=== PATIENT | male | born 1985 | race Caucasian/White ===

== ENCOUNTER 2021-02-18 16:55 | Emergency (ER) | payer MEDICAID, SELFPAY ==
[2021-02-18 17:05] VITALS: BP 119/77; PULSE 77; O2SAT 96
--- NOTE | 2021-02-18 17:07 | ED_ITS ---
HPI - Seizure General Chief Complaint: General Medical Stated Complaint: ?SEIZURE Time Seen by Provider: 02/18/21 17:07 Source: patient and EMS Mode of arrival: EMS Limitations: no limitations History of Present Illness HPI Narrative: 35 y/o male with history of a TBI and seizures who presents to the ED from home via EMS with feeling like he was going to have a seizure. He reports for the last several days he has been vomiting after he takes his Trileptal so his body is not absorbing it. He is worried he is going to have a seizure. He feels tired and has a posterior headache. He reports he had a seizure a few days ago which consists of him nodding out and urinary incontinence. He sees a Neurologist in [place] where he lives. He is here visiting his fiance. He denies any drug use, ETOH use, fever, chills, abdominal pain. MD complaint: feels seizure coming on Onset (ago): day(s) Trauma: No Seizure History: Yes Place: Home Possible Precipitating Event: head injury Associated symptoms: malaise Treatments prior to arrival: none Related Data Previous Rx's Medication Instructions Recorded metoclopramide HCl [Reglan] 10 mg PO Q6H PRN #7 tab 02/18/21 Allergies Allergy/AdvReac Type Severity Reaction Status Date / Time amoxicillin Allergy Vomiting Verified 02/18/21 17:19 lamotrigine [From Lamictal] Allergy Hives Verified 02/18/21 17:19 levetiracetam [From Keppra] Allergy Hives Verified 02/18/21 17:19 Review of Systems Review of Systems: Constitutional: No Fever, No Chills ENT/Mouth: No sore throat, No Rhinorrhea, No Swallowing Difficulty Eyes: No Eye Pain, No Swelling, No Redness Cardiovascular: No Chest Pain, No SOB, No Orthopnea, No Edema Respiratory: No Cough, No Sputum, No Wheezing, No dyspnea Gastrointestinal: No Nausea, No Vomiting, No Diarrhea, No abdominal Pain, No Hematochezia, No Melena Genitourinary: No Dysuria, No Urinary Frequency, No Hematuria Musculoskeletal: No joint pain, No Myalgias Skin: No Skin Lesions, No rash Neuro: No Weakness, No Numbness, No Dizziness, No Headache Psych: No Anxiety/Panic, No Depression Heme/Lymph: No Bruising, No Lymphadenopathy Endocrine: No Polyuria, No Polydipsia [facility] Past Medical History Medical History (Updated 02/18/21 @ 20:25 by EUSEBIO Eduardo) Bipolar 1 disorder PTSD (post-traumatic stress disorder) Seizure TBI (traumatic brain injury) Surgical History (Updated 02/18/21 @ 17:16 by Patricia Guerra) Hx of hernia repair Social History Social History Alcohol intake: former Patient Tobacco Use Status: Former Tobacco user Use of substances other than those prescribed or required for medical reasons: No Advance Directives: No Advance Directives Information Provided: No Physical Exam Vital Signs: Vital Signs: Last Vital Signs Temp 98.2 F 02/18/21 17:14 Pulse 80 02/18/21 18:08 Resp 18 02/18/21 18:08 BP 131/77 02/18/21 18:08 Pulse Ox 98 02/18/21 18:08 Body Mass Index 28.7 Appearance: Alert. Oriented X3. No acute distress. Eyes: Pupils equal, round and reactive to light. ENT: Pharynx normal. Neck: Normal inspection. Neck supple. CVS: Normal heart rate and rhythm. Pulses normal. Respiratory: No respiratory distress. Breath sounds normal. Abdomen: Soft and nontender. +BS x4 Skin: Skin warm and dry. Normal skin color. Normal skin turgor. No rashes. Extremities: No lower extremity edema. Neuro: Oriented X 3. No motor deficit. No sensory deficit. Hyperverbal Course Course Course Narrative: 35 y/o male with history of TBI and seizure disorder presenting with feeling like he is going to have a seizure. He does not have tonic-clonic seizures. He is fully neurologically intact on arrival. Will monitor closely for seizure activity. Will pre-mediate with Zofran and give his scheduled dose of Trileptal and montior. Reevaluation(s) Reevaluation #1: Labs and Utox unremarkable. Tolerated his AED well. No vom iting. He is stable for discharge home with plans to f/u as an outpatient with his neurologist. MDM - Seizure Lab Data Result diagrams: 02/18/21 18:06 02/18/21 18:06 Labs: Lab Results 02/18/21 02/18/21 02/18/21 Range/Units 18:06 18:06 18:06 WBC 6.3 (4.8-10.8) X10*3/uL RBC 4.77 (4.60-5.80) X10*6/uL Hgb 13.8 L (14.0-18.0) g/dl Hct 41.1 L (42-52) % MCV 86.2 (80-98) fL MCH 28.9 (27.0-33.0) pg MCHC 33.6 (31.0-36.0) g/dl RDW 13.4 (11.0-16.0) % Plt Count 285 (160-400) X10*3/uL MPV 9.7 (9.4-12.4) fL Immature Gran % (Auto) 0.5 H (0.0-0.4) % Neut % (Auto) 61.6 (45-73) % Lymph % (Auto) 24.4 (20-40) % Schley % (Auto) 10.1 (2-11) % Eos % (Auto) 2.6 (0-4) % Baso % (Auto) 0.8 (0-2) % Lymph # (Auto) 1.5 (1.2-4.9) X10*3/uL Schley # (Auto) 0.6 (0.1-1.2) X10*3/uL Eos # (Auto) 0.2 (0.0-0.4) X10*3/uL Baso # (Auto) 0.1 (0.0-0.2) X10*3/uL Abs Immat Gran (auto) 0.03 (0.00-0.03) X10*3/uL Absolute Neuts (auto) 3.9 (2.0-8.3) X10*3/uL Absolute Nucleated RBC 0.000 (0.0-0.012) X10*3/uL Nucleated RBC % (auto) 0.0 (0.0-0.2) /100WBC Sodium 142 (135-145) mmol/L Potassium 4.0 (3.3-5.1) mmol/L Chloride 108 (96-108) mmol/L Carbon Dioxide 26 (22-29) mmol/L Anion Gap 12 (12-20) BUN 19 H (9-16) mg/dL Creatinine 0.80 (0.5-1.4) mg/dL Estim Creat Clear Calc 116.9 Estimated GFR > 60 Random Glucose 89 (60-115) mg/dL Calcium 8.9 (8.4-10.2) mg/dL Magnesium 2.3 (1.6-2.6) mg/dL Total Bilirubin 0.8 (0.0-1.0) mg/dL Direct Bilirubin 0.3 (0.0-0.5) mg/dL AST 57 H (5-37) U/L ALT 70 H (0-40) U/L Alkaline Phosphatase 103 (39-117) U/L Total Protein 6.8 (6.5-8.0) g/dL Albumin 4.2 (3.5-5.0) g/dL Lipase 26 (8-78) U/L Urine Color Urine Appearance Urine pH (5.0-8.0) Ur Specific [place] (1.005-1.025) Urine Protein (NEG-TRACE) MG/DL Urine Glucose (UA) (NEG) MG/DL Urine Ketones (NEG) MG/DL Urine Blood (NEG) Urine Nitrite (NEG) Ur Leukocyte Esterase (NEG) Urine Opiates Screen (Not Detect) Ur Barbiturates Screen (Not Detect) Ur Phencyclidine Scrn (Not Detect) Ur Amphetamines Screen (Not Detect) U Benzodiazepines Scrn (Not Detect) Urine Cocaine Screen (Not Detect) U Marijuana (THC) Screen (Not Detect) Ethyl Alcohol < 10 mg/dL 02/18/21 02/18/21 Range/Units 18:06 18:06 WBC (4.8-10.8) X10*3/uL RBC (4.60-5.80) X10*6/uL Hgb (14.0-18.0) g/dl Hct (42-52) % MCV (80-98) fL MCH (27.0-33.0) pg MCHC (31.0-36.0) g/dl RDW (11.0-16.0) % Plt Count (160-400) X10*3/uL MPV (9.4-12.4) fL Immature Gran % (Auto) (0.0-0.4) % Neut % (Auto) (45-73) % Lymph % (Auto) (20-40) % Schley % (Auto) (2-11) % Eos % (Auto) (0-4) % Baso % (Auto) (0-2) % Lymph # (Auto) (1.2-4.9) X10*3/uL Schley # (Auto) (0.1-1.2) X10*3/uL Eos # (Auto) (0.0-0.4) X10*3/uL Baso # (Auto) (0.0-0.2) X10*3/uL Abs Immat Gran (auto) (0.00-0.03) X10*3/uL Absolute Neuts (auto) (2.0-8.3) X10*3/uL Absolute Nucleated RBC (0.0-0.012) X10*3/uL Nucleated RBC % (auto) (0.0-0.2) /100WBC Sodium (135-145) mmol/L Potassium (3.3-5.1) mmol/L Chloride (96-108) mmol/L Carbon Dioxide (22-29) mmol/L Anion Gap (12-20) BUN (9-16) mg/dL Creatinine (0.5-1.4) mg/dL Estim Creat Clear Calc Estimated GFR Random Glucose (60-115) mg/dL Calcium (8.4-10.2) mg/dL Magnesium (1.6-2.6) mg/dL Total Bilirubin (0.0-1.0) mg/dL Direct Bilirubin (0.0-0.5) mg/dL AST (5-37) U/L ALT (0-40) U/L Alkaline Phosphatase (39-117) U/L Total Protein (6.5-8.0) g/dL Albumin (3.5-5.0) g/dL Lipase (8-78) U/L Urine Color YELLOW Urine Appearance CLEAR Urine pH 6.5 (5.0-8.0) Ur Specific [place] 1.020 (1.005-1.025) Urine Protein TRACE (NEG-TRACE) MG/DL Urine Glucose (UA) NEG (NEG) MG/DL Urine Ketones NEG (NEG) MG/DL Urine Blood NEG (NEG) Urine Nitrite NEG (NEG) Ur Leukocyte Esterase NEG (NEG) Urine Opiates Screen Not Detected (Not Detect) Ur Barbiturates Screen Not Detected (Not Detect) Ur Phencyclidine Scrn Not Detected (Not Detect) Ur Amphetamines Screen Not Detected (Not Detect) U Benzodiazepines Scrn Not Detected (Not Detect) Urine Cocaine Screen Not Detected (Not Detect) U Marijuana (THC) Screen Not Detected (Not Detect) Ethyl Alcohol mg/dL Discharge Plan Discharge Clinical Impression: TBI (traumatic brain injury) Qualifiers: Encounter type: initial encounter Loss of consciousness presence/duration: without LOC Qualified Code(s): S06.9X0A - Unspecified intracranial injury without loss of consciousness, initial encounter Patient Disposition: Home, Self-Care Instructions: Nonepileptic Seizures (ED) Additional Instructions: Your lab workup was normal. Recommend following up with Neurology. Take the prescribed nausea medication before your take your seizure medication. Prescription was sent to [facility] on [facility] in [place] If you develop new or worsening symptoms call 911 or come back to the ER for further evaluation. Prescriptions: New metoclopramide HCl [Reglan] 10 mg tablet 10 mg PO Q6H PRN (Reason: nausea and vomiting) Qty: 7 RF: 0
[2021-02-18 17:14] VITALS: BP 131/90; PULSE 84; RESP 18; TEMP 36.8; O2SAT 95; BMI 28.7
[2021-02-18] MEDS: OXcarbazepine 300 MG TABLET 600 MG PO (17:53)
[2021-02-18] MEDS: ondansetron HCL 4 MG/2 ML VIAL IVPUSH (17:56)
[2021-02-18] MEDS: 0.9 % Sodium Chloride 1,000 ML 999 ML IVCONT (17:57)
[2021-02-18 18:08] VITALS: BP 131/77; PULSE 80; RESP 18; O2SAT 98
[2021-02-18 18:20] LABS: MANUAL DIFF FLAG NO
[2021-02-18 18:23] LABS: Basophils Absolute Auto 0.1 X10*3/uL (0.0-0.2); Basophils Percent Auto 0.8 % (0-2); Eosinophils Absolute Auto 0.2 X10*3/uL (0.0-0.4); Eosinophils Percent Auto 2.6 % (0-4); Hematocrit 41.1 % (42-52); Hemoglobin 13.8 g/dl (14.0-18.0); Imm Gran Abs Auto 0.03 X10*3/uL (0.00-0.03); Imm Gran Pct Auto 0.5 % (0.0-0.4); Lymphocytes Absolute Auto 1.5 X10*3/uL (1.2-4.9); Lymphocytes Percent Auto 24.4 % (20-40); Mean Corpuscular HGB Conc 33.6 g/dl (31.0-36.0); Mean Corpuscular Hemoglobin 28.9 pg (27.0-33.0); Mean Corpuscular Volume 86.2 fL (80-98); Mean Platelet Volume 9.7 fL (9.4-12.4); Monocytes Absolute Auto 0.6 X10*3/uL (0.1-1.2); Monocytes Percent Auto 10.1 % (2-11); Neutrophils Absolute Auto 3.9 X10*3/uL (2.0-8.3); Neutrophils Percent Auto 61.6 % (45-73); Platelet Count 285 X10*3/uL (160-400); Red Blood Count 4.77 X10*6/uL (4.60-5.80); Red Cell Distribution Width 13.4 % (11.0-16.0); White Blood Count 6.3 X10*3/uL (4.8-10.8)
[2021-02-18 18:25] LABS: Glucose Urine UA NEG (NEG); Leukocyte Esterase Urine NEG (NEG); Nitrite Urine NEG (NEG); PH 6.5 (5.0-8.0); Urine Blood NEG (NEG); Urine Ketones NEG (NEG); Urine Protein TRACE MG/DL (NEG-TRACE)
[2021-02-18 18:28] LABS: Appearance Urine CLEAR; Color Urine YELLOW
[2021-02-18 18:51] LABS: Ethanol < 10 mg/dL
[2021-02-18 18:53] LABS: Alanine Aminotransferase 70 U/L (0-40); Albumin Level 4.2 g/dL (3.5-5.0); Alkaline Phosphatase 103 U/L (39-117); Anion Gap 12 (12-20); Aspartate Amino Transferase 57 U/L (5-37); Bilirubin Direct 0.3 mg/dL (0.0-0.5); Bilirubin Total 0.8 mg/dL (0.0-1.0); Blood Urea Nitrogen 19 mg/dL (9-16); Calcium 8.9 mg/dL (8.4-10.2); Carbon Dioxide 26 mmol/L (22-29); Chloride 108 mmol/L (96-108); Creatinine Clr Calc Pharmacy 116.9; Estimated Glomerular Filt Rate > 60; Glucose Random 89 mg/dL (60-115); Lipase 26 U/L (8-78); Magnesium 2.3 mg/dL (1.6-2.6); Sodium 142 mmol/L (135-145); Total Protein 6.8 g/dL (6.5-8.0)
[2021-02-18 18:54] LABS: Amphetamine Screen Urine Not Detected (Not Detect); Barbiturates, Urine Not Detected (Not Detect); Benzodiazepines Screen Urine Not Detected (Not Detect); Cannabinoid Screen Urine Not Detected (Not Detect); Cocaine Screen Urine Not Detected (Not Detect); Opiate Screen Urine Not Detected (Not Detect); Phencyclidine Screen Urine Not Detected (Not Detect)
[2021-02-18 20:22] VITALS: BP 116/83; PULSE 74; RESP 16; O2SAT 99
== END 2021-02-18 21:01 | disposition home or self-care (01) ==
PROVIDERS: Physician Assistant; Emergency Provider Internal Medicine; PCP Family Medicine
DX: S06.9X0A Unspecified intracranial injury without loss of consciousness, initial encounter (principal); R11.10 Vomiting, unspecified; X58.XXXA Exposure to other specified factors, initial encounter; Y93.9 Activity, unspecified; Y92.9 Unspecified place or not applicable; Y99.9 Unspecified external cause status; Z79.899 Other long term (current) drug therapy; Z87.891 Personal history of nicotine dependence
CPT/HCPCS: 36415; 80048; 80076; 80307; 81003; 82077; 83690; 83735; 85025; 96361; 96365; 96374; 96375; 99284; J2405

== ENCOUNTER 2021-02-18 23:18 | Emergency (ER) | payer OTHER, SELFPAY ==
[2021-02-18 23:31] VITALS: BP 115/88; PULSE 70; RESP 18; TEMP 36.7; O2SAT 98; BMI 28.7
--- NOTE | 2021-02-18 23:56 | ED_ITS ---
HPI - General Adult General Chief complaint: General Medical Stated complaint: fall Time Seen by Provider: 02/19/21 00:04 Source: patient Mode of arrival: ambulatory Limitations: no limitations History of Present Illness HPI narrative: 35-year-old male with past medical history of TBI discharge from this emergency department less than 2 hours ago presents for evaluation because he hit his head while in the bathroom in the waiting room. He does not report loss of consciousness, does not report any injury, states that he would like a ride to his girlfriend's detox center 2 hours away. He has no other complaints at this time. Location: head Severity: mild Treatments prior to arrival: none Related Data Previous Rx's Medication Instructions Recorded metoclopramide HCl [Reglan] 10 mg PO Q6H PRN #7 tab 02/18/21 Allergies Allergy/AdvReac Type Severity Reaction Status Date / Time amoxicillin Allergy Vomiting Verified 02/18/21 17:19 lamotrigine [From Lamictal] Allergy Hives Verified 02/18/21 17:19 levetiracetam [From Keppra] Allergy Hives Verified 02/18/21 17:19 Review of Systems Review of Systems: Constitutional: No Fever, No Chills ENT/Mouth: No Ear Pain, No Hoarseness, No sore throat Eyes: No Eye Pain, No Swelling, No Redness, No Foreign Body Cardiovascular: No Chest Pain, No SOB Respiratory: No Cough, No Dyspnea Gastrointestinal: No Nausea, No Vomiting, No Diarrhea, No abdominal Pain Genitourinary: No Dysuria, No Hematuria Musculoskeletal: No joint pain, No Myalgias, No Joint Swelling Skin: No Skin lacerations, No rash Neuro: No Weakness, No Numbness, No Paresthesias, No Loss of Consciousness, No Dizziness, No Headache Psych: No Anxiety/Panic, No Depression Heme/Lymph: no easy bruising, no Lymphadenopathy Endocrine: No Polyuria, No Polydipsia Yes all other systems are reviewed and are negative [facility] Past Medical History Attestation statement: The following information was validated with the patient. Source: old records reviewed Medical History Bipolar 1 disorder PTSD (post-traumatic stress disorder) Seizure TBI (traumatic brain injury) Surgical History Hx of hernia repair Social History Social History Alcohol intake: former Patient Tobacco Use Status: Former Tobacco user Advance Directives: No Advance Directives Information Provided: No Physical Exam Vital Signs: Vital Signs: Last Vital Signs Temp 98.1 F 02/18/21 23:31 Pulse 70 02/18/21 23:31 Resp 18 02/18/21 23:31 BP 115/88 02/18/21 23:31 Pulse Ox 98 02/18/21 23:31 Body Mass Index 28.7 Appearance: Alert. Oriented X3. No acute distress. Eyes: Pupils equal, round and reactive to light. ENT: Pharynx normal. Neck: Normal inspection. Neck supple. CVS: Normal heart rate and rhythm. Pulses normal. Respiratory: No respiratory distress. Breath sounds normal. Abdomen: Soft and nontender. Skin: Skin warm and dry. Normal skin color. Normal skin turgor. Extremities: No lower extremity edema. Neuro: No motor deficit. No sensory deficit. Course Course Course Narrative: 35-year-old male discharged from this facility approximately less than 2 hours ago, has been waiting in the waiting room for a ride home. He presents for re-evaluation because hit his head while in the bathroom of the waiting room. He does not have any visible injuries, states that he did not lose consciousness and has no complaints of pain at this time. He is requesting an ambulance ride from this facility to his girlfriend's detox center. Patient was advised that we do not offer that kind of service here. Patient was discharged to the waiting room. Medical Decision Making Medical Records Medical records reviewed: Yes I reviewed the patient's medical records. Discharge Plan Discharge Clinical Impression: TBI (traumatic brain injury) Patient Disposition: Home, Self-Care Instructions: Fall Prevention (ED) Additional Instructions: You were evaluated for a reported head injury while waiting in the waiting room of the emergency department. Your exam was normal. Thank you for choosing this emergency department for evaluation. Please follow-up with primary care physician as needed. Return to the emergency department for any new, concerning, or worsening symptoms. Prescriptions: No Action metoclopramide HCl [Reglan] 10 mg tablet 10 mg PO Q6H PRN (Reason: nausea and vomiting) Qty: 7 RF: 0
--- NOTE | 2021-02-19 00:56 | PC.NURSE ---
PT STATES THAT HE BUMPED HEAD IN RESTROOM NO VISIBLE BRUISE NOTED PT A+OX3, AMBULATING WITH STEADY GAIT. PT IS UPSET BECAUSE HE WANT A RIDE HOME TO HIS GIRLFRIEND WHO IS IN REHAB. PT WAS TOLD WE CAN NOT PROVIDE HIM WITH TRANSPORT HOME. PT HAS A RIDE HOME BUT HIS RIDE JUST HAD A BABY AND HE HAS TO WAIT FOR HIM TO COME PICK HIM UP. PT REQUEST EMS TRANSPORT TO GIRLFRIEND REHAB FACILITY. PT WAS INSTRUCTED TO WAIT IN WAITING ROOM UNTIL HIS RIDE COME.
== END 2021-02-19 00:13 | disposition home or self-care (01) ==
PROVIDERS: Emergency Provider Internal Medicine
DX: S06.9X0A Unspecified intracranial injury without loss of consciousness, initial encounter (principal); G44.309 Post-traumatic headache, unspecified, not intractable; W18.30XA Fall on same level, unspecified, initial encounter; Y93.9 Activity, unspecified; Y92.239 Unspecified place in hospital as the place of occurrence of the external cause; Y99.9 Unspecified external cause status; Z79.899 Other long term (current) drug therapy
CPT/HCPCS: 99283

== ENCOUNTER 2021-02-19 21:06 | Emergency (ER) | payer OTHER, SELFPAY ==
[2021-02-19 21:17] VITALS: BP 122/85; PULSE 107; RESP 18; TEMP 36.8; O2SAT 98; BMI 28.7
--- NOTE | 2021-02-19 22:21 | ED_ITS ---
HPI - General Adult General Chief complaint: Seizure Stated complaint: Lightheaded/Dizzy, hx of seizures & TBI Source: patient Mode of arrival: ambulatory Limitations: no limitations History of Present Illness HPI narrative: 35-year-old male with past medical history of TBI and seizure disorder presents with complaint of dizziness, multiple seizures, and inability pay for hotel room. He presents with his suitcase. He states that he was at his girlfriend's house, noted that he had several seizures, took his medications as directed, and then threw up. He does not have any concerns at this time, denies chest pain or pressure, palpitations, shortness of breath, abdominal pain, abdominal distention, dysuria, hematuria, nausea, vomiting, diarrhea, constipation, lightheadedness, and incontinence of bowel or bladder. Onset (ago): unknown Location: head Severity: mild Relieving factors: none Associated symptoms: denies other symptoms Treatments prior to arrival: none Related Data Previous Rx's Medication Instructions Recorded metoclopramide HCl [Reglan] 10 mg PO Q6H PRN #7 tab 02/18/21 Allergies Allergy/AdvReac Type Severity Reaction Status Date / Time amoxicillin Allergy Vomiting Verified 02/18/21 17:19 lamotrigine [From Lamictal] Allergy Hives Verified 02/18/21 17:19 levetiracetam [From Keppra] Allergy Hives Verified 02/18/21 17:19 Review of Systems Review of Systems: Constitutional: No Fever, No Chills ENT/Mouth: No Ear Pain, No Hoarseness, No sore throat Eyes: No Eye Pain, No Swelling, No Redness, No Foreign Body Cardiovascular: No Chest Pain, No SOB Respiratory: No Cough, No Dyspnea Gastrointestinal: No Nausea, No Vomiting, No Diarrhea, No abdominal Pain Genitourinary: No Dysuria, No Hematuria Musculoskeletal: No joint pain, No Myalgias, No Joint Swelling Skin: No Skin lacerations, No rash Neuro: No Weakness, No Numbness, No Paresthesias, No Loss of Consciousness, No Dizziness, No Headache Psych: No Anxiety/Panic, No Depression Heme/Lymph: no easy bruising, no Lymphadenopathy Endocrine: No Polyuria, No Polydipsia Yes all other systems are reviewed and are negative [facility] Past Medical History Attestation statement: The following information was validated with the patient. Source: old records reviewed Medical History Bipolar 1 disorder PTSD (post-traumatic stress disorder) Seizure TBI (traumatic brain injury) Surgical History Hx of hernia repair Social History Social History Alcohol intake: former Patient Tobacco Use Status: Former Tobacco user Advance Directives: No Advance Directives Information Provided: Yes Physical Exam Vital Signs: Vital Signs: Last Vital Signs Temp 98.2 F 02/19/21 21:17 Pulse 107 H 02/19/21 21:17 Resp 18 02/19/21 21:17 BP 122/85 02/19/21 21:17 Pulse Ox 98 02/19/21 21:17 Body Mass Index 28.7 Appearance: Alert. Oriented X3. No acute distress. Eyes: Pupils equal, round and reactive to light. ENT: Pharynx normal. Neck: Normal inspection. Neck supple. CVS: Normal heart rate and rhythm. Pulses normal. Respiratory: No respiratory distress. Breath sounds normal. Abdomen: Soft and nontender. Skin: Skin warm and dry. Normal skin color. Normal skin turgor. Extremities: No lower extremity edema. Ambulatory, gait well balanced well co ordinated. Neuro: No motor deficit. No sensory deficit. Cranial nerves 2-12 intact. Course Course Course Narrative: 35-year-old male presents to this emergency department for multiple complaints. First complaint was he does not have enough money to check into a hotel room, cannot pay the 200 dollar retainer fee. Second complaint is report of multiple seizures witnessed by his girlfriend. Interesting to note that he presented to the emergency department last night multiple times, the las t encounter I had with him, he stated that his girlfriend was in a rehab facility approximately 2 hours away from this hospital, he requested an ambulance ride to her facility. This was less than 24 hours ago, patient stated he was at her house today when he had these multiple seizures. When I asked him more specific questions, he was not able to answer. He has no focal neural deficits, appears nontoxic, and has no other complaints at this time. Plan is to discharge home. Medical Decision Making Medical Records Medical records reviewed: Yes I reviewed the patient's medical records. Discharge Plan Discharge Clinical Impression: TBI (traumatic brain injury) Patient Disposition: Home, Self-Care Instructions: Normal Exam (ED) Additional Instructions: You presented to the emergency department with chief complaint of not having enough money to check into a hotel, and report of seizures. Please continue to take your seizure medication as directed. Thank you for choosing this emergency department for evaluation. Please follow-up with primary care physician as needed. Return to the emergency department for any new, concerning, or worsening symptoms. Prescriptions: No Action metoclopramide HCl [Reglan] 10 mg tablet 10 mg PO Q6H PRN (Reason: nausea and vomiting) Qty: 7 RF: 0
--- NOTE | 2021-02-19 22:27 | PC.NURSE ---
PT BROUGHT IN TO [facility] 22 FOR EVALUATION. PT BRINGING LUGGAGE WHEN QUESTIONED ABOUT IT PT STATED HE WAS SUPPOSED TO GO TO THE HOTEL [facility] BUT THEY WANTED A $200 WHITNEY DEPOSIT.
== END 2021-02-19 22:35 | disposition home or self-care (01) ==
PROVIDERS: Emergency Provider Student in an Organized Health Care Education/Training Program; PCP Family Medicine
DX: R56.9 Unspecified convulsions (principal); Z87.820 Personal history of traumatic brain injury
CPT/HCPCS: 99282; 99283

== ENCOUNTER 2021-02-21 20:31 | Emergency (ER) | payer OTHER, SELFPAY ==
[2021-02-21 20:56] VITALS: BP 135/90; PULSE 75; RESP 16; TEMP 36.8; BMI 29.2
--- NOTE | 2021-02-21 21:44 | ED_ITS ---
HPI - Seizure General Chief Complaint: Seizure Stated Complaint: WEAKNESS Time Seen by Provider: 02/21/21 21:35 Source: patient Mode of arrival: EMS Limitations: no limitations History of Present Illness HPI Narrative: Patient with history of seizures or long time with history of TBI been here 3 times in last 2 days for seizures and vomiting unable to hold down his seizure medication. Patient was discharged last night and now comes back as had another seizure which lasted a few minutes without any significant injury. When patient came here last 2 times had multiple social reasons to come including unable to pay for the rush ALMAGUER complaint: seizure Seizure History: Yes Related Data Previous Rx's Medication Instructions Recorded metoclopramide HCl [Reglan] 10 mg PO Q6H PRN #7 tab 02/18/21 Allergies Allergy/AdvReac Type Severity Reaction Status Date / Time amoxicillin Allergy Vomiting Verified 02/21/21 21:01 lamotrigine [From Lamictal] Allergy Hives Verified 02/21/21 21:01 levetiracetam [From Keppra] Allergy Hives Verified 02/21/21 21:01 Review of Systems Review of Systems: Yes all other systems are reviewed and are negative [facility] Past Medical History Medical History Bipolar 1 disorder PTSD (post-traumatic stress disorder) Seizure TBI (traumatic brain injury) Surgical History Hx of hernia repair Social History Social History Alcohol intake: former Patient Tobacco Use Status: Former Tobacco user Advance Directives: No Advance Directives Information Provided: No Physical Exam Vital Signs: Vital Signs: Last Vital Signs Temp 98.2 F 02/21/21 20:56 Pulse 75 02/21/21 20:56 Resp 16 02/21/21 20:56 BP 135/90 H 02/21/21 20:56 Body Mass Index 29.2 Appearance: Alert. Oriented X3. No acute distress. Anxious Eyes: PERRLA, No Nystagmus ENT: Pharynx normal. Oral Mucosa moist no tongue bite Neck: Normal inspection. Neck supple. CVS: Normal heart rate and rhythm. Pulses normal. Respiratory: No respiratory distress. Equal air entry bilateral, no wheezing/rales/rhonchi Abdomen: Soft and nontender. Bowel sounds are present, no mass palpable, no CVA tenderness Skin: Skin warm and dry. Normal skin color. Normal skin turgor. Extremities: No lower extremity edema. No calf tenderness Neuro: Oriented X 3. No motor deficit. No sensory deficit.No cerebellar signs , cranial nerves II-XII intact MDM - Seizure MDM Narrative Medical decision making narrative: Patient had sandwich in the ER took Trileptal without any vomiting will discharge patient home advised to continue his medications at home Discharge Plan Discharge Clinical Impression: Epileptic seizure Qualifiers: Epilepsy type: generalized idiopathic Intractability: not intractable Status epilepticus: without status epilepticus Qualified Code(s): G40.309 - Generalized idiopathic epilepsy and epileptic syndromes, not intractable, without status epilepticus Patient Disposition: Home, Self-Care Instructions: Epilepsy (ED) Additional Instructions: Take your seizure medication as prescribed and follow with neurologist Prescriptions: No Action metoclopramide HCl [Reglan] 10 mg tablet 10 mg PO Q6H PRN (Reason: nausea and vomiting) Qty: 7 RF: 0
[2021-02-21] MEDS: OXcarbazepine 300 MG TABLET 600 MG PO (21:51)
== END 2021-02-21 22:28 | disposition home or self-care (01) ==
PROVIDERS: Emergency Provider Internal Medicine
DX: G40.309 Generalized idiopathic epilepsy and epileptic syndromes, not intractable, without status epilepticus (principal); Z87.820 Personal history of traumatic brain injury
CPT/HCPCS: 99283; 99284

== ENCOUNTER 2021-02-23 21:09 | Emergency (ER) | payer OTHER, MEDICAID, SELFPAY ==
[2021-02-23 21:26] VITALS: BP 126/67; PULSE 89; RESP 20; TEMP 36.6; O2SAT 96; BMI 29.9
[2021-02-23 23:38] LABS: Glucose Urine UA NEG (NEG); Leukocyte Esterase Urine NEG (NEG); Nitrite Urine NEG (NEG); Urine Blood NEG (NEG); Urine Ketones NEG (NEG); Urine Protein NEG (NEG-TRACE)
[2021-02-23 23:39] LABS: Appearance Urine CLEAR; Color Urine YELLOW; UACC Culture Trigger NO
--- NOTE | 2021-02-24 00:22 | PC.NURSE ---
PT STATES AMOXICILLIN CAUSES NAUSEA AND VOMITING PT AND CRIMINAL LEGAL ASSISTANT AGREE PT WILL GET PENICILLIN INJECTION IT SHOULD NOT CAUSE VOMITING.
[2021-02-24] MEDS: Penicillin G Benzathine 2,400,000 UNIT/4 ML SYRINGE 2400000 UNIT IM (00:24)
[2021-02-24] MEDS: cefTRIAXone sodium 500 MG, Lidocaine HCl 1 % MPF 1 ML IM (00:24)
[2021-02-24] MEDS: Azithromycin 500 MG TABLET 1000 MG PO (00:25)
--- NOTE | 2021-02-24 00:56 | ED_ITS ---
HPI - Male Genitourinary General Chief complaint: Urogenital-Male Stated complaint: kidney stones Time Seen by Provider: 02/23/21 22:39 Source: patient and EMS Mode of arrival: EMS Limitations: no limitations History of Present Illness HPI Narrative: 35-year-old male presents via EMS for lesion to his penis. He does not report any other symptoms at this time. Complaint: possible STD exposure Onset (ago): week(s) Duration: constant Radiation: penis Severity: moderate Severity scale (1-10): 5 Quality: burning Exacerbating factors: palpation and sexual intercourse Context: known STD exposure Associated symptoms: Reports denies other symptoms Related Data Sexually active: Yes Previous Rx's Medication Instructions Recorded metoclopramide HCl [Reglan] 10 mg PO Q6H PRN #7 tab 02/18/21 valacyclovir 1,000 mg PO Q12H 10 Days #20 tab 02/24/21 Allergies Allergy/AdvReac Type Severity Reaction Status Date / Time amoxicillin Allergy Vomiting Verified 02/21/21 21:01 lamotrigine [From Lamictal] Allergy Hives Verified 02/21/21 21:01 levetiracetam [From Keppra] Allergy Hives Verified 02/21/21 21:01 Review of Systems Review of Systems: Constitutional: No Fever, No Chills ENT/Mouth: No Ear Pain, No Hoarseness, No sore throat Eyes: No Eye Pain, No Swelling, No Redness, No Foreign Body Cardiovascular: No Chest Pain, No SOB Respiratory: No Cough, No Dyspnea Gastrointestinal: No Nausea, No Vomiting, No Diarrhea, No abdominal Pain Genitourinary: Positive penile lesion, No Dysuria, No Hematuria Musculoskeletal: No joint pain, No Myalgias, No Joint Swelling Skin: No Skin lacerations, No rash Neuro: No Weakness, No Numbness, No Paresthesias, No Loss of Consciousness, No Dizziness, No Headache Psych: No Anxiety/Panic, No Depression Heme/Lymph: no easy bruising, no Lymphadenopathy Endocrine: No Polyuria, No Polydipsia Yes all other systems are reviewed and are negative [facility] Past Medical History Attestation statement: The following information was validated with the patient. Source: old records reviewed Medical History Bipolar 1 disorder PTSD (post-traumatic stress disorder) Seizure TBI (traumatic brain injury) Surgical History Hx of hernia repair Social History Social History Alcohol intake: former Patient Tobacco Use Status: Former Tobacco user Advance Directives: No Advance Directives Information Provided: No Physical Exam Vital Signs: Vital Signs: Last Vital Signs Temp 97.9 F 02/23/21 21:26 Pulse 89 02/23/21 21:26 Resp 20 02/23/21 21:26 BP 126/67 02/23/21 21:26 Pulse Ox 96 02/23/21 21:26 Body Mass Index 29.9 Appearance: Alert. Oriented X3. No acute distress. Eyes: Pupils equal, round and reactive to light. ENT: Pharynx normal. Neck: Normal inspection. Neck supple. CVS: Normal heart rate and rhythm. Pulses normal. Respiratory: No respiratory distress. Breath sounds normal. Abdomen: Soft and nontender. Genitourinary: 3 cm in diameter lesion to the left side of his penis, involving glans, no penile discharge. No testicular pain. Skin: Skin warm and dry. Normal skin color. Normal skin turgor. Extremities: No lower extremity edema. Neuro: No motor deficit. No sensory deficit. Course Course Course Narrative: 35-year-old male presents via EMS for penile lesion. States that this lesion has been there for several months, and has been getting worse. Will test for chlamydia and gonorrhea, treat for chlamydia, gonorrhea, herpes, syphilis and chancre. Patient was updated that he must follow up with his partners so that they can be tested and treated for STIs. Patient verbalized understanding of and agrees to plan of care discharge home. MDM - Male Genitourinary MDM Narrative Medical decision making narrative: Syphilis, gonorrhea, chlamydia Differential Diagnosis Differential diagnosis: Likely urinary tract infection and genital herpes simplex Medical Records Attestation: I reviewed the patient's medical records. Lab Data Attestation: I reviewed the patient's lab results. Labs: Lab Results 02/23/21 Range/Units 23:21 Urine Color YELLOW Urine Appearance CLEAR Urine pH 7.0 (5.0-8.0) Ur Specific [place] 1.020 (1.005-1.025) Urine Protein NEG (NEG-TRACE) MG/DL Urine Glucose (UA) NEG (NEG) MG/DL Urine Ketones NEG (NEG) MG/DL Urine Blood NEG (NEG) Urine Nitrite NEG (NEG) Ur Leukocyte Esterase NEG (NEG) Discharge Plan Discharge Clinical Impression: Herpes, Syphilis, Canker sore Patient Disposition: Home, Self-Care Instructions: Genital Herpes Simplex (ED), Syphilis (ED) Additional Instructions: you were evaluated for lesion on Your penis. We treated you for syphilis, gonorrhea, chlamydia, and herpes. . Please pickle pumper your Valtrex at [address] [place] [address]. Wash your hands after touching your penis. Do not engage in sexual activity for at least 2 weeks or until symptoms Resolved. Thank you for choosing this emergency department for evaluation. Please follow-up with primary care physician as needed. Return to the emergency department for any new, concerning, or worsening symptoms. Prescriptions: New valacyclovir 1 gram tablet 1,000 mg PO Q12H 10 Days Qty: 20 RF: 0 No Action metoclopramide HCl [Reglan] 10 mg tablet 10 mg PO Q6H PRN (Reason: nausea and vomiting) Qty: 7 RF: 0
[2021-02-24 01:15] LABS: CT PCR NOT DETECTED (Not Detect.); NG PCR NOT DETECTED (Not Detect.)
== END 2021-02-24 01:23 | disposition home or self-care (01) ==
PROVIDERS: Emergency Provider Emergency Medicine
DX: B00.9 Herpesviral infection, unspecified (principal); A53.9 Syphilis, unspecified; K12.0 Recurrent oral aphthae; Z87.891 Personal history of nicotine dependence; Z79.899 Other long term (current) drug therapy; Z20.2 Contact with and (suspected) exposure to infections with a predominantly sexual mode of transmission
CPT/HCPCS: 81003; 87491; 87591; 96372; 99284; J0561; J0696

== ENCOUNTER 2021-02-25 20:49 | Emergency (ER) | payer OTHER, SELFPAY ==
[2021-02-25 21:23] VITALS: BP 115/70; PULSE 80; RESP 16; TEMP 36.8; O2SAT 99; BMI 32.8
--- NOTE | 2021-02-25 21:58 | ED.ASTHMA ---
HPI - Asthma General Chief Complaint: Upper Respiratory Symptoms Stated Complaint: sob Time Seen by Provider: 02/25/21 21:51 Source: patient and EMS Mode of arrival: EMS Limitations: no limitations History of Present Illness HPI Narrative: 35-year-old male presents via EMS with past medical history of TBI, seizure disorder, and homelessness presents to the emergency department for shortness of breath because he is out of his inhaler. He has no other concerns at this time. MD complaint: shortness of breath Onset (ago): hour(s) (With an hour of arrival) Severity: mild Context: ran out of meds Associated symptoms: dry cough Asthma History: childhood onset Treatments Prior to Arrival: inhaled bronchodilator Related Data Current Asthma Therapy: inhaled bronchodilator Previous Rx's Medication Instructions Recorded metoclopramide HCl [Reglan] 10 mg PO Q6H PRN #7 tab 02/18/21 valacyclovir 1,000 mg PO Q12H 10 Days #20 tab 02/24/21 Allergies Allergy/AdvReac Type Severity Reaction Status Date / Time amoxicillin Allergy Vomiting Verified 02/21/21 21:01 lamotrigine [From Lamictal] Allergy Hives Verified 02/21/21 21:01 levetiracetam [From Keppra] Allergy Hives Verified 02/21/21 21:01 Review of Systems Review of Systems: Constitutional: No Fever, No Chills ENT/Mouth: No Hoarseness, No sore throat, No Rhinorrhea Eyes: No Redness, No Discharge, No Vision Changes Cardiovascular: No Chest Pain, positive SOB, in all Dyspnea on Exertion, No Edema Respiratory: No Cough, No Sputum, positive Wheezing, Gastrointestinal: No Nausea, No Vomiting, No Diarrhea, No abdominal Pain Genitourinary: No Dysuria, No Hematuria Musculoskeletal: No joint pain, No Myalgias Skin: No rash Neuro: No Weakness, No Numbness, No Headache Psych: No anxiety, depression Heme/Lymph: No Bruising, No Bleeding Endocrine: No Polyuria, No Polydipsia Yes all other systems are reviewed and are negative COUNTS INCLUDE 234 BEDS AT THE [facility] Past Medical History Attestation statement: The following information was validated with the patient. Source: old records reviewed Medical History Bipolar 1 disorder PTSD (post-traumatic stress disorder) Seizure TBI (traumatic brain injury) Surgical History Hx of hernia repair Social History Social History Alcohol intake: former Patient Tobacco Use Status: Former Tobacco user Advance Directives: No Advance Directives Information Provided: Yes Physical Exam Vital Signs: Vital Signs: Last Vital Signs Temp 98.3 F 02/25/21 21:23 Pulse 80 02/25/21 21:23 Resp 16 02/25/21 21:23 BP 115/70 02/25/21 21:23 Pulse Ox 99 02/25/21 21:23 Body Mass Index 32.8 Appearance: Alert. Oriented X3. No acute distress. Eyes: Pupils equal, round and reactive to light. ENT: Pharynx normal. Neck: Normal inspection. Neck supple. CVS: Normal heart rate and rhythm. Pulses normal. Respiratory: No respiratory distress. Lung sounds clear to auscultation all lobes. Abdomen: Soft and nontender. Skin: Skin warm and dry. Normal skin color. Normal skin turgor. Extremities: No lower extremity edema. Moves all extremities against resistance. Gait well-balanced well coordinated. Neuro: No motor deficit. No sensory deficit. Cranial nerves 2-12 intact. Course Course Course Narrative: 35-year-old male presents via EMS for shortness of breath because his albuterol inhaler is out. Presented to this facility numerous times per day over the past few weeks, is homeless. Physical exam is normal, lung sounds clear to auscultation all lobes, even unlabored respirations, afebrile, appears nontoxic. Speaking in complete sentences. Will give albuterol inhaler and discharged home. MDM - Asthma Differential Diagnosis Differential diagnosis: Likely Acute exacerbation Discharge Plan Discharge Clinical Impression: Asthma Patient Disposition: Home, Self-Care Instructions: Asthma (ED) Additional Instructions: You were evaluated for shortness of breath consistent with mild asthma. Please use albuterol inhaler as needed follow-up with primary care provider. Thank you for choosing this emergency department for evaluation. Please follow-up with primary care physician as needed. Return to the emergency department for any new, concerning, or worsening symptoms. Prescriptions: No Action valacyclovir 1 gram tablet 1,000 mg PO Q12H 10 Days Qty: 20 RF: 0 metoclopramide HCl [Reglan] 10 mg tablet 10 mg PO Q6H PRN (Reason: nausea and vomiting) Qty: 7 RF: 0 Interventions: ED Discharge Assessment Last Done: 02/25/21 22:04 Discharge Date/Time: 02/25/21 22:05
[2021-02-25] MEDS: Albuterol Sulfate 90 MCG 8 GM INHALER 2 PUFF INHALE (22:02)
== END 2021-02-25 22:05 | disposition home or self-care (01) ==
PROVIDERS: Emergency Provider Emergency Medicine; PCP Hospitalist
DX: J45.909 Unspecified asthma, uncomplicated (principal); Z59.0 Homelessness; Z87.820 Personal history of traumatic brain injury
CPT/HCPCS: 99283; 99284

== ENCOUNTER 2021-02-27 20:17 | Emergency (ER) | payer OTHER, SELFPAY ==
[2021-02-27 20:21] VITALS: BP 138/90; PULSE 83; O2SAT 97
[2021-02-27 20:52] VITALS: BP 117/83; PULSE 79; RESP 16; TEMP 36.9; O2SAT 97; BMI 32.2
--- NOTE | 2021-02-27 22:50 | ED.GENADULT ---
HPI - General Adult General Chief complaint: Seizure Stated complaint: seizures Time Seen by Provider: 02/27/21 22:35 Source: patient and EMS Mode of arrival: EMS Limitations: no limitations History of Present Illness HPI narrative: 35 y/o male with history of TBI and reported seizures who presents to the ED via EMS with reports of multiple seizures. This is his 7th ER visit in the last 10 days. [place] and reports being here visiting his yeny ALMAGUER complaint: multiple seizures Onset (ago): day(s) Location: head Radiation: non-radiation Severity: moderate Quality: aching Pain Consistency: intermittent Relieving factors: none Exacerbating factors: none Associated symptoms: denies other symptoms Treatments prior to arrival: none Related Data Previous Rx's Medication Instructions Recorded metoclopramide HCl [Reglan] 10 mg PO Q6H PRN #7 tab 02/18/21 valacyclovir 1,000 mg PO Q12H 10 Days #20 tab 02/24/21 Allergies Allergy/AdvReac Type Severity Reaction Status Date / Time amoxicillin Allergy Vomiting Verified 02/27/21 20:58 lamotrigine [From Lamictal] Allergy Hives Verified 02/27/21 20:58 levetiracetam [From Keppra] Allergy Hives Verified 02/27/21 20:58 Review of Systems Review of Systems: Constitutional: No Fever, No Chills ENT/Mouth: No sore throat, No Rhinorrhea, No Swallowing Difficulty Eyes: No Eye Pain, No Swelling, No Redness Cardiovascular: No Chest Pain, No SOB, No Orthopnea, No Edema Respiratory: No Cough, No Sputum, No Wheezing, No dyspnea Gastrointestinal: No Nausea, No Vomiting, No Diarrhea, No abdominal Pain Musculoskeletal: No joint pain, No Myalgias Skin: No Skin Lesions, No rash Neuro: No Weakness, No Numbness, No Dizziness, + Headache (intermittent) Psych: + Anxiety/Panic, No Depression Heme/Lymph: No Bruising, No Lymphadenopathy PMFSH Past Medical History Attestation statement: The following information was validated with the patient. Medical History Bipolar 1 disorder PTSD (post-traumatic stress disorder) Seizure TBI (traumatic brain injury) Surgical History Hx of hernia repair Social History Social History Alcohol intake: former Patient Tobacco Use Status: Former Tobacco user Advance Directives: No Advance Directives Information Provided: No Physical Exam Vital Signs: Vital Signs: Last Vital Signs Temp 98.5 F 02/27/21 20:52 Pulse 79 02/27/21 20:52 Resp 16 02/27/21 20:52 BP 117/83 02/27/21 20:52 Pulse Ox 97 02/27/21 20:52 Body Mass Index 32.2 Appearance: Alert. Oriented X3. No acute distress. Eyes: Pupils equal, round and reactive to light. ENT: Pharynx normal. Neck: Normal inspection. Neck supple. CVS: Normal heart rate and rhythm. Pulses normal. Respiratory: No respiratory distress. Breath sounds normal. Abdomen: Soft and nontender. +BS x4 Skin: Skin warm and dry. Normal skin color. Normal skin turgor. No rashes. Extremities: No lower extremity edema. Neuro: Oriented X 3. No motor deficit. No sensory deficit. Hyperverbal Course Course Course Narrative: 35 y/o male with history of TBI, reported seizures, PTSD and bipolar who presents with reports on a gazillion seizures today. He arrived via ambulance for the 7th time in 10 days. He spends his days visiting his fiance with severe MS in a SNF and then tends to come to the ER once visiting hours are over. He admits to not having a place to sleep. He is neurologically intact and appears well, slightly anxious. We discussed importance of following up with his doctor in [place] and he has an appointment in early March. At this time he is stable for discharge with outpatient follow up. Critical Care Time Critical Care Time Critical Care Time: No Discharge Plan Discharge Clinical Impression: Anxiety Patient Disposition: Home, Self-Care Instructions: Anxiety (ED) Additional Instructions: Follow up with your doctor as scheduled on 03/12. Your seizures are not life threatening. Continue to take your medication as prescribed by your doctor. Prescriptions: No Action valacyclovir 1 gram tablet 1,000 mg PO Q12H 10 Days Qty: 20 RF: 0 metoclopramide HCl [Reglan] 10 mg tablet 10 mg PO Q6H PRN (Reason: nausea and vomiting) Qty: 7 RF: 0
== END 2021-02-27 23:47 | disposition home or self-care (01) ==
PROVIDERS: Emergency Provider Student in an Organized Health Care Education/Training Program
DX: F41.9 Anxiety disorder, unspecified (principal); Z87.820 Personal history of traumatic brain injury; F43.10 Post-traumatic stress disorder, unspecified; F31.9 Bipolar disorder, unspecified
CPT/HCPCS: 99283

== ENCOUNTER 2021-03-01 20:15 | Emergency (ER) | payer OTHER, SELFPAY ==
[2021-03-01 20:18] VITALS: BMI 29.0
[2021-03-01 20:22] VITALS: BP 124/86; PULSE 85; RESP 18; TEMP 36.9; O2SAT 96
--- NOTE | 2021-03-01 20:23 | ED.NAVMDI ---
HPI - Nausea/Vomiting/Diarrhea General Chief complaint: Nausea/Vomiting/Diarrhea Stated complaint: Vomiting Time Seen by Provider: 03/01/21 20:20 Source: patient Mode of arrival: EMS Limitations: no limitations History of Present Illness HPI Narrative: Patient has a of TBI PTSD seizure disorder been here 7 times in last 10 days for multiple complaints been kicked out from the retirement every night when he goes there to see his girlfriend who is a retirement with MS comes here with multiple complaints today complaining of nausea vomiting no seizures today hand when patient was given water in the ER he was able to drink water without any vomiting asking to go to residential Related Data Previous Rx's Medication Instructions Recorded metoclopramide HCl 10 mg tablet 10 mg PO Q6H PRN #7 tab 02/18/21 (Reglan) valacyclovir 1 gram tablet 1,000 mg PO Q12H 10 Days #20 tab 02/24/21 Allergies Allergy/AdvReac Type Severity Reaction Status Date / Time amoxicillin Allergy Vomiting Verified 02/27/21 20:58 lamotrigine [From Lamictal] Allergy Hives Verified 02/27/21 20:58 levetiracetam [From Keppra] Allergy Hives Verified 02/27/21 20:58 Review of Systems Review of Systems: Constitutional : No Weight loss, No Fever, No Chills ENT/Mouth : No sore throat, No Rhinorrhea Eyes: No Eye Pain, No Swelling Cardiovascular : No Chest Pain, no palpitations Respiratory : No Cough, No Sputum, no shortness of breath Gastrointestinal : no Nausea, +Vomiting, No Diarrhea, No abdominal Pain, no black stools Genitourinary : No Dysuria, No Urinary Frequency Musculoskeletal : No joint pain, No Myalgias, No Joint Swelling Skin : No Skin Lesions, No rash Neuro : No Weakness, No Numbness, No Dizziness, No Headache Psych : + Anxiety/Panic, No Depression Heme/Lymph: No Bruising, No Lymphadenopathy Endocrine : No Polyuria, No Polydipsia All other systems reviewed and are negative PMFSH Past Medical History Medical History Bipolar 1 disorder PTSD (post-traumatic stress disorder) Seizure TBI (traumatic brain injury) Surgical History Hx of hernia repair Social History Social History Alcohol intake: former Patient Tobacco Use Status: Former Tobacco user Advance Directives: No Advance Directives Information Provided: Yes Physical Exam Vital Signs: Vital Signs: Last Vital Signs Temp 98.5 F 03/01/21 20:22 Pulse 85 03/01/21 20:22 Resp 18 03/01/21 20:22 BP 124/86 03/01/21 20:22 Pulse Ox 96 03/01/21 20:22 Body Mass Index 29.0 Appearance: Alert. Oriented X3. No acute distress. Anxious Eyes: PERRLA, ENT: Pharynx normal. Oral Mucosa moist Neck: Normal inspection. Neck supple. CVS: Normal heart rate and rhythm. Pulses normal. Respiratory: No respiratory distress. Equal air entry bilateral, no wheezing/rales/rhonchi Abdomen: Soft and nontender. Bowel sounds are present, no mass palpable, no CVA tenderness Skin: Skin warm and dry. Normal skin color. Normal skin turgor. Extremities: No lower extremity edema. No calf tenderness Neuro: Oriented X 3. No motor deficit. No sensory deficit.No cerebellar signs , cranial nerves II-XII intact MDM - Nausea/Vomiting/Diarrhea MDM Narrative Medical decision making narrative: Patient with multiple complaints looking for a place to stay been here 7 times in last 10 days drinking p.o. fluids in the ER will give the list for residential and discharge him Discharge Plan Discharge Clinical Impression: Homelessness Vomiting Qualifiers: Vomiting type: unspecified Vomiting Intractability: non-intractable Nausea presence: without nausea Qualified Code(s): R11.11 - Vomiting without nausea Patient Disposition: Care Home Instructions: Acute Nausea and Vomiting (ED) Additional Instructions: Taking medication as prescribed and follow with PCP Go to residential as advised Prescriptions: No Action valacyclovir 1 gram tablet 1,000 mg PO Q12H 10 Days Qty: 20 RF: 0 metoclopramide HCl [Reglan] 10 mg tablet 10 mg PO Q6H PRN (Reason: nausea and vomiting) Qty: 7 RF: 0
--- NOTE | 2021-03-01 20:32 | PC.NURSE ---
during triage, pt stated that he had nowhere to go until he returns home to [place]. pt given list of shelters and encouraged to follow up with shelters on list to find adequate housing. pt educated that he does not met criteria for medical admission and should follow up and return to [facility] [place] for sob/ams, diff breathing, n/v that is unrelieved by home rn. pt left ed at 2030
== END 2021-03-01 20:35 | disposition home or self-care (01) ==
PROVIDERS: Emergency Provider Internal Medicine
DX: R11.11 Vomiting without nausea (principal); Z87.891 Personal history of nicotine dependence; Z79.899 Other long term (current) drug therapy
CPT/HCPCS: 99283

== ENCOUNTER → 2022-03-20 08:15 | Outpatient (BNVA) | payer OTHER, SELFPAY | PROVIDERS: PCP Physician Assistant; Visit Provider Psychiatry & Neurology Neurology | DX: G40.909 Epilepsy, unspecified, not intractable, without status epilepticus (principal); G47.9 Sleep disorder, unspecified; Z79.899 Other long term (current) drug therapy | CPT/HCPCS: 99202 ==

== ENCOUNTER → 2022-05-15 08:04 | Outpatient (BNVA) | payer OTHER, SELFPAY | PROVIDERS: PCP Physician Assistant; Visit Provider Nurse Practitioner Family | DX: G40.909 Epilepsy, unspecified, not intractable, without status epilepticus (principal); G47.9 Sleep disorder, unspecified | CPT/HCPCS: 99212 ==

== ENCOUNTER 2022-07-20 19:56 | Emergency (ER) | payer OTHER, SELFPAY ==
--- NOTE | ~2022-07-20 | XR_ITS ---
EXAMINATION: LUMBAR SPINE, RIGHT WRIST CLINICAL INFORMATION: Fall COMPARISON: None TECHNIQUE: 3 views lumbar spine, 4 views wrist FINDINGS: Lumbar spine: No significant abnormality is seen. Vertebral body heights and disc spaces are well maintained. No fractures or subluxations. There are some very minimal spondylitic endplate changes. Right wrist: No significant bone, joint or soft tissue abnormality is seen. No fractures. No chondrocalcinosis. XR/XR wrist RT 2V IMPRESSION: No evidence of an acute injury.
--- NOTE | ~2022-07-20 | CT_ITS ---
EXAMINATION: NONCONTRAST HEAD CT NONCONTRAST CERVICAL SPINE CT INDICATION INFORMATION: Pain status post fall COMPARISON: None TECHNIQUE: Separate noncontrast CT examinations of the head and cervical spine were performed. Coronal and sagittal images were created for each examination at the technologist workstation. This CT examination was performed using dose optimization techniques as appropriate, variously including the following: *Automated exposure control *Adjustment of mA and/or kV according to patient size (this includes techniques or standardized protocols for targeted exams where dose is matched to indication/reason for exam; i.e. extremities or head) *Use of iterative reconstruction technique DLP: 1053 mGy-cm FINDINGS: HEAD: No intra or extra-axial fluid collection, hemorrhage, or mass. No ventriculomegaly. No midline shift or herniation. Basal cisterns are patent. Callahan-white matter differentiation is maintained. No territorial encephalomalacia. No significant volume loss. There is no abnormal attenuation within the brain parenchyma. No calvarial fracture or soft tissue abnormality. The mastoid air cells and visualized portions of the paranasal sinuses are well aerated. CERVICAL SPINE: Alignment: Normal. No subluxation. Vertebra: No acute fracture. No prevertebral soft tissue swelling. Degenerative disc disease: Intervertebral disc space heights are maintained. Minimal anterior endplate proliferative change at C4-C5. Tiny anterior intervertebral disc calcification C5-C6. Other findings: Visualized portions of lung apices appear clear. Visualized thyroid gland is unremarkable. No cervical lymphadenopathy identified. CT/CT cervical spine wo IV con IMPRESSION: 1. No intracranial hemorrhage or calvarial fracture. 2. No traumatic subluxation or acute cervical spine fracture.
--- NOTE | ~2022-07-20 | XR_ITS ---
EXAMINATION: LUMBAR SPINE, RIGHT WRIST CLINICAL INFORMATION: Fall COMPARISON: None TECHNIQUE: 3 views lumbar spine, 4 views wrist FINDINGS: Lumbar spine: No significant abnormality is seen. Vertebral body heights and disc spaces are well maintained. No fractures or subluxations. There are some very minimal spondylitic endplate changes. Right wrist: No significant bone, joint or soft tissue abnormality is seen. No fractures. No chondrocalcinosis. XR/XR lumbar spine 2-3V IMPRESSION: No evidence of an acute injury.
--- NOTE | ~2022-07-20 | CT_ITS ---
EXAMINATION: NONCONTRAST HEAD CT NONCONTRAST CERVICAL SPINE CT INDICATION INFORMATION: Pain status post fall COMPARISON: None TECHNIQUE: Separate noncontrast CT examinations of the head and cervical spine were performed. Coronal and sagittal images were created for each examination at the technologist workstation. This CT examination was performed using dose optimization techniques as appropriate, variously including the following: *Automated exposure control *Adjustment of mA and/or kV according to patient size (this includes techniques or standardized protocols for targeted exams where dose is matched to indication/reason for exam; i.e. extremities or head) *Use of iterative reconstruction technique DLP: 1053 mGy-cm FINDINGS: HEAD: No intra or extra-axial fluid collection, hemorrhage, or mass. No ventriculomegaly. No midline shift or herniation. Basal cisterns are patent. Callahan-white matter differentiation is maintained. No territorial encephalomalacia. No significant volume loss. There is no abnormal attenuation within the brain parenchyma. No calvarial fracture or soft tissue abnormality. The mastoid air cells and visualized portions of the paranasal sinuses are well aerated. CERVICAL SPINE: Alignment: Normal. No subluxation. Vertebra: No acute fracture. No prevertebral soft tissue swelling. Degenerative disc disease: Intervertebral disc space heights are maintained. Minimal anterior endplate proliferative change at C4-C5. Tiny anterior intervertebral disc calcification C5-C6. Other findings: Visualized portions of lung apices appear clear. Visualized thyroid gland is unremarkable. No cervical lymphadenopathy identified. CT/CT head/brain wo IV con IMPRESSION: 1. No intracranial hemorrhage or calvarial fracture. 2. No traumatic subluxation or acute cervical spine fracture.
[2022-07-20 20:03] VITALS: BP 150/88; PULSE 81; O2SAT 99; BMI 23.6
--- NOTE | 2022-07-20 20:24 | ED.GENADULT ---
HPI - General Adult General Chief complaint: Fall Stated complaint: LOW BACK PAIN S/P FALL DOWN 4 STEPS,+CCOLLAR Time Seen by Provider: 07/20/22 20:21 Source: patient and EMS Mode of arrival: EMS Limitations: no limitations History of Present Illness HPI narrative: Patient is a 36 year old assigned male at with a history of a seizure disorder presenting to the emergency department today with low back pain and right wrist pain. Patient states that he fell down 4 steps and is now having right wrist pain and low back pain. Patient denies hitting his head in the incident. Patient denies any loss of consciousness. Patient denies any dizziness, lightheadedness, abdominal pain, nausea, vomiting, fever, chills, blurry vision, double vision, loss of vision, chest pain, difficulty breathing, shortness of breath, night sweats, pain with urination, increased urinary frequency, increased urinary urgency, blood in his urine or stool, syncope or a near syncopal episode, bowel incontinence, bladder incontinence, bowel retention, bladder retention, or any other complaints at this time. Onset (ago): minute(s) Location: back, right and upper extremity Radiation: non-radiation Severity: mild Severity scale (1-10): 3 Quality: dull Pain Consistency: constant Relieving factors: none Exacerbating factors: none Treatments prior to arrival: none Related Data Home Medications Medication Instructions Recorded Confirmed albuterol sulfate 90 mcg/actuation 0 mcg inhalation 03/20/22 05/15/22 aerosol inhaler (ProAir HFA) aripiprazole 15 mg tablet 15 mg PO DAILY 03/20/22 05/15/22 diazepam 5 mg tablet 5 mg PO BID PRN 03/20/22 05/15/22 gabapentin 400 mg capsule 400 mg PO TID 03/20/22 05/15/22 lidocaine 4 % topical cream g topical 03/20/22 05/15/22 nifedipine 30 mg tablet,extended 30 mg PO DAILY 03/20/22 05/15/22 release nifedipine 30 mg tablet,extended 30 mg PO DAILY 03/20/22 release 24 hr omeprazole 20 mg capsule,delayed 20 mg PO BID 03/20/22 05/15/22 release ondansetron 4 mg disintegrating 2 mg PO Q6-8H PRN 03/20/22 05/15/22 tablet pantoprazole 40 mg tablet,delayed 40 mg PO BID 03/20/22 05/15/22 release promethazine 12.5 mg tablet 12.5 mg PO Q6-8H 03/20/22 sucralfate 1 gram tablet 1 g PO QID 03/20/22 tamsulosin 0.4 mg capsule 0.4 mg PO DAILY 03/20/22 aluminum-mag hydroxide-simethicone 20 ml PO QID PRN 05/15/22 05/15/22 400 mg-400 mg-40 mg/5 mL oral susp (Mintox Maximum Strength) Previous Rx's Medication Instructions Recorded metoclopramide HCl 10 mg tablet 10 mg PO Q6H PRN nausea and 02/18/21 (Reglan) vomiting #7 tabs valacyclovir 1 gram tablet 1,000 mg PO Q12H 10 days #20 tabs 02/24/21 Allergies Allergy/AdvReac Type Severity Reaction Status Date / Time amoxicillin Allergy Vomiting Verified 05/15/22 08:26 lamotrigine [From Lamictal] Allergy Hives Verified 05/15/22 08:26 levetiracetam [From Keppra] Allergy Hives Verified 05/15/22 08:26 Review of Systems Constitutional: Constitutional: Reports no additional constitutional complaints, Denies chills, Denies fever(s) and Denies night sweats Eyes: Eyes: Reports no additional eye complaints, Denies blurry vision, Denies change in vision, Denies diplopia, Denies eye discharge, Denies loss of vision and Denies eye pain ENT: Denies dizziness Cardiovascular: Cardiovascular: Reports no additional cardiovascular complaints, Denies chest pain, Denies lightheadedness, Denies Loss of Consciousness and Denies dyspnea Respiratory: Respiratory: Reports no additional respiratory complaints and Denies dyspnea Gastrointestinal: Gastrointestinal: Reports no additional gastrointestinal complaints, Denies abdominal pain, Denies melena, Denies hematochezia, Denies change in bowel habits and Denies change in stool character Genitourinary: Genitourinary: Reports no additional male genitourinary complaints, Denies hematuria, Denies oliguria, Denies difficulty urinating, Denies dysuria, Denies urinary frequency, Denies urinary hesitancy, Denies urinary incontinence and Denies urinary urgency Musculoskeletal: Musculoskeletal: Reports no additional musculoskeletal complaints, Denies numbness and Denies tingling Comments: right wrist pain, back pain Neurologic: Denies dizziness, Denies loss of vision, Denies numbness and Denies tingling Psychiatric: Psychiatric: Reports no additional psychiatric complaints Endocrine: Endocrine: Reports no additional endocrine complaints Hematologic/Lymphatic: Hematologic/Lymphatic: Reports no additional hematologic/lymphatic complaints Allergic/Immunologic: Allergic/Immunologic: Reports no additional allergic/immunologic complaints [facility] Past Medical History Attestation statement: The following information was validated with the patient. Source: old records reviewed and nursing notes reviewed Medical History Back pain Bipolar 1 disorder Neck pain PTSD (post-traumatic stress disorder) Seizure Seizure disorder Sleep disorder TBI (traumatic brain injury) Surgical History Hx of hernia repair Family History Family History Mother Cancer Family/Other No problems noted. Social History Social History Alcohol intake: former Patient Tobacco Use Status: Former Tobacco user Advance Directives: No Advance Directives Information Provided: No Physical Exam ED Vital Signs: Vital Signs - 24 hr 07/20/22 22:36 Temperature 97.5 F Pulse Rate 59 Respiratory Rate 19 Blood Pressure 133/83 Pulse Oximetry 97 Oxygen Delivery Method Room Air BMI result Body Mass Index 23.6 Const General: cooperative, no acute distress, alert and awake Nutritional Appearance: well nourished Orientation/consciousness: patient oriented x3 Limitations: no limitations [facility] Head: Yes normal to inspection and Yes atraumatic Ears: hearing grossly normal bilaterally and external ears normal General nose exam: Normal external nose present, no nasal discharge noted and no epistaxis Face and sinus: Yes normal facial exam, No abrasion and No laceration Mouth: Normal oral and palatal mucosa present, no drooling and no muffled voice Eyes General: appearance normal, both eyes and all related structures Periorbital: periorbital findings normal Eyelids: Yes eyelids normal Conjunctivae: conjunctivae normal Pupils: Equal, round and reactive pupils present EOM: EOMs intact bilaterally Neck Neck: Yes normal visual inspection, Yes full ROM and Yes no lymphadenopathy Chest Chest palpation & inspection: normal inspection of the chest Resp Effort & Inspection: normal respiratory effort and able to speak in complete sentences Auscultation: clear to auscultation bilaterally Cardio Rate: regular rate Rhythm: regular rhythm GI Inspection: Yes normal to inspection Neuro General: patient oriented x3 and moves all extremities Cranial nerves: Yes Equal, round and reactive pupils present Cognition (Neuro): normal cognition Motor exam (neuro): 5/5 motor strength present throughout Sensory Exam: Normal double simultaneous stimulation for sensation Coordination: [id number] test normal Extrem General: Yes normal to inspection, Yes full ROM and Yes capillary refill normal Psych Appearance: grossly normal Mental Status: mental status grossly normal Affect: normal affect Attitude: cooperative Thought process: Normal thought process present Thought content: Normal thought content present Insight: Good insight present (Psych) Medical Decision Making Medical Decision Making MDM Narrative: Patient is a 36 year old assigned male at with a history of a seizure disorder presenting to the emergency department today with right wrist pain and back pain. Patient's physical exam was unremarkable. Patient's right wirst and lumbar spine x-rays showed no acute process. Patient's head and C-Spine CTs showed no acute process. I explained my physical exam findings as well as all test results to the patient. I answered all questions asked by the patient. I stressed the importance of the patient taking his medication as prescribed. I stressed the importance of the patient following up with his primary care provider. I stressed the importance of the patient returning to the emergency department immediately if his symptoms were to worsen or if he were to develop any dizziness, shortness of breath, difficulty breathing, chest pain, blurry vision, loss of vision, nausea, vomiting, abdominal pain, fever, chills, back pain, or any other complaints. Patient verbalized agreement and understanding with this treatment plan and discharge. Differential Diagnosis Differential Diagnoses: The differential diagnosis associated with the presentation includes fall Radiology Impression Discussion of test interpretation with radiology: I have reviewed the radiologist's reading. Radiologist Impression: EXAMINATION: LUMBAR SPINE, RIGHT WRIST CLINICAL INFORMATION: Fall? COMPARISON: None? TECHNIQUE: 3 views lumbar spine, 4 views wrist? FINDINGS: Lumbar spine: No significant abnormality is seen. Vertebral body heights and disc spaces are well maintained. No fractures or subluxations. There are some very minimal spondylitic endplate changes. Right wrist: No significant bone, joint or soft tissue abnormality is seen. No fractures. No chondrocalcinosis. XR/XR wrist RT 2V IMPRESSION: No evidence of an acute injury. Dictated By: Pan Lezama MD Signed By: Electronically signed by Pan Lezama MD 07/20/22 2235 EXAMINATION: NONCONTRAST HEAD CT NONCONTRAST CERVICAL SPINE CT INDICATION INFORMATION: Pain status post fall COMPARISON: None TECHNIQUE: Separate noncontrast CT examinations of the head and cervical spine were performed. Coronal and sagittal images were created for each examination at the technologist workstation. This CT examination was performed using dose optimization techniques as appropriate, variously including the following: *Automated exposure control *Adjustment of mA and/or kV according to patient size (this includes techniques or standardized protocols for targeted exams where dose is matched to indication/reason for exam; i.e. extremities or head) *Use of iterative reconstruction technique DLP: 1053 mGy-cm FINDINGS: HEAD: No intra or extra-axial fluid collection, hemorrhage, or mass. No ventriculomegaly. No midline shift or herniation. Basal cisterns are patent. Callahan-white matter differentiation is maintained. No territorial encephalomalacia. ?No significant volume loss. There is no abnormal attenuation within the brain parenchyma. No calvarial fracture or soft tissue abnormality. ?The mastoid air cells and visualized portions of the paranasal sinuses are well aerated. CERVICAL SPINE: Alignment: Normal. No subluxation. Vertebra: No acute fracture. No prevertebral soft tissue swelling. Degenerative disc disease: Intervertebral disc space heights are maintained. Minimal anterior endplate proliferative change at C4-C5. Tiny anterior intervertebral disc calcification C5-C6. Other findings: Visualized portions of lung apices appear clear. Visualized thyroid gland is unremarkable. No cervical lymphadenopathy identified. CT/CT head/brain wo IV con IMPRESSION: 1.? No intracranial hemorrhage or calvarial fracture. 2.? No traumatic subluxation or acute cervical spine fracture. Dictated By: Gualberto Carrero Signed By: Electronically signed by GualbertoNoeMagan 07/20/22 [id number] Discharge Plan Discharge Clinical Impression: Fall Patient Disposition: Home, Self-Care Instructions: Fall Prevention (ED) Additional Instructions: Follow up with your primary care provider. Return to the emergency department immediately if your symptoms worsen or if you develop any dizziness, shortness of breath, difficulty breathing, chest pain, blurry vision, loss of vision, nausea, vomiting, abdominal pain, fever, chills, back pain, or any other complaints. Prescriptions: No Action valacyclovir 1 gram tablet 1,000 mg PO Q12H 10 Days Qty: 20 0RF metoclopramide HCl [Reglan] 10 mg tablet 10 mg PO Q6H PRN (Reason: nausea and vomiting) Qty: 7 0RF ondansetron 4 mg tablet,disintegrating 2 mg PO Q6-8H PRN promethazine 12.5 mg tablet 12.5 mg PO Q6-8H pantoprazole 40 mg tablet,delayed release (DR/EC) 40 mg PO BID sucralfate 1 gram tablet 1 g PO QID albuterol sulfate [ProAir HFA] 90 mcg/actuation HFA aerosol inhaler 0 mcg inhalation nifedipine 30 mg tablet extended release 30 mg PO DAILY aripiprazole 15 mg tablet 15 mg PO DAILY nifedipine 30 mg tablet extended release 24hr 30 mg PO DAILY gabapentin 400 mg capsule 400 mg PO TID omeprazole 20 mg capsule,delayed release(DR/EC) 20 mg PO BID tamsulosin 0.4 mg capsule 0.4 mg PO DAILY lidocaine 4 % cream topical diazepam 5 mg tablet 5 mg PO BID PRN alum-mag hydroxide-simeth [Mintox Maximum Strength] 400-400-40 mg/5 mL suspension 20 ml PO QID PRN Referrals: [facility] [place] [facility] [Provider Group] (Call to establish and follow up with a primary care provider. If you already have a primary care provider, please follow up with them. ) [facility] [place] [facility] [Provider Group] (Call to establish and follow up with a primary care provider. If you already have a primary care provider, please follow up with them. ) [facility] [place] [facility] [Provider Group] (Call to establish and follow up with a primary care provider. If you already have a primary care provider, please follow up with them. ) Stand Alone Forms: Work/School Release Interventions: ED Discharge Assessment Last Done: 07/20/22 23:23 Discharge Date/Time: 07/20/22 23:23 Print Language: Gabonese
[2022-07-20 22:36] VITALS: BP 133/83; PULSE 59; RESP 19; TEMP 36.4; O2SAT 97
== END 2022-07-20 23:23 | disposition home or self-care (01) ==
PROVIDERS: Emergency Provider Emergency Medicine
DX: M54.50 Low back pain, unspecified (principal); Z91.81 History of falling
CPT/HCPCS: 70450; 72100; 72125; 73100; 99283; 99284

== ENCOUNTER 2022-07-29 14:31 | Emergency (ER) | payer OTHER, SELFPAY ==
[2022-07-29 14:35] VITALS: BP 142/90; PULSE 88; O2SAT 98
[2022-07-29 15:03] VITALS: BP 135/95; PULSE 96; RESP 18; TEMP 36.4; O2SAT 95; BMI 26.4
[2022-07-29 16:23] LABS: MANUAL DIFF FLAG NO
[2022-07-29 16:26] LABS: Basophils Absolute Auto 0.1 X10*3/uL (0.0-0.2); Basophils Percent Auto 0.6 % (0-2); Eosinophils Percent Auto 0.3 % (0-4); Hematocrit 45.7 % (42.0-52.0); Hemoglobin 15.2 g/dl (14.0-18.0); Imm Gran Abs Auto 0.03 X10*3/uL (0.00-0.03); Imm Gran Pct Auto 0.3 % (0.0-0.4); Lymphocytes Absolute Auto 0.9 X10*3/uL (1.2-4.9); Lymphocytes Percent Auto 10.5 % (20-40); Mean Corpuscular HGB Conc 33.3 g/dl (31.0-36.0); Mean Corpuscular Hemoglobin 27.8 pg (27.0-33.0); Mean Corpuscular Volume 83.7 fL (80.0-98.0); Monocytes Absolute Auto 0.4 X10*3/uL (0.1-1.2); Monocytes Percent Auto 4.6 % (2-11); Neutrophils Absolute Auto 7.5 x10*3/uL (2.0-8.3); Neutrophils Percent Auto 83.7 % (45-73); Platelet Count 333 X10*3/uL (160-400); Red Blood Count 5.46 X10*6/uL (4.60-5.80); Red Cell Distribution Width 12.9 % (11.0-16.0)
[2022-07-29 16:52] LABS: Alanine Aminotransferase 70 U/L (0-40); Albumin Level 4.8 g/dL (3.5-5.0); Alkaline Phosphatase 116 U/L (39-117); Anion Gap 11 (12-20); Aspartate Amino Transferase 46 U/L (5-37); Bilirubin Total 0.6 mg/dL (0.0-1.0); Blood Urea Nitrogen 25 mg/dL (9-16); Calcium 9.8 mg/dL (8.4-10.2); Carbon Dioxide 24 mmol/L (22-29); Chloride 107 mmol/L (96-108); Creatinine Clr Calc Pharmacy 110.6; Estimated Glomerular Filt Rate > 60; Glucose Random 121 mg/dL (60-115); Sodium 138 mmol/L (135-145); Total Protein 7.7 g/dL (6.5-8.0)
[2022-07-29 17:10] LABS: Influenza A PCR NEGATIVE (Negative); Influenza B PCR NEGATIVE (Negative); Resp Syncy Virus RNA Qual PCR NEGATIVE (Negative); SARS COV2 PCR INHOUSE NEGATIVE (Negative)
[2022-07-29 20:09] VITALS: BP 141/89; PULSE 78; RESP 16; TEMP 36.7; O2SAT 96
--- NOTE | 2022-07-29 20:15 | ED.NAVMDI ---
HPI - Nausea/Vomiting/Diarrhea General Chief complaint: Nausea/Vomiting/Diarrhea Stated complaint: VOMITING Time Seen by Provider: 07/29/22 19:55 Source: patient Mode of arrival: ambulatory Limitations: no limitations History of Present Illness HPI Narrative: Patient with history of seizure disorder on gabapentin, GERD, RLS, bipolar disorder comes in for nausea vomiting and diarrhea for last 24 hrs Patient vomited about 8 times and same amount of diarrhea mostly watery I will take anything p.o. feels weak also complaining of headache usually migraines no fever no chills no other family member sick with same does not know any bad food intake no recent seafood Related Data Home Medications Medication Instructions Recorded Confirmed albuterol sulfate 90 mcg/actuation 0 mcg inhalation 03/20/22 05/15/22 aerosol inhaler (ProAir HFA) aripiprazole 15 mg tablet 15 mg PO DAILY 03/20/22 05/15/22 diazepam 5 mg tablet 5 mg PO BID PRN 03/20/22 05/15/22 gabapentin 400 mg capsule 400 mg PO TID 03/20/22 05/15/22 lidocaine 4 % topical cream g topical 03/20/22 05/15/22 nifedipine 30 mg tablet,extended 30 mg PO DAILY 03/20/22 05/15/22 release nifedipine 30 mg tablet,extended 30 mg PO DAILY 03/20/22 release 24 hr omeprazole 20 mg capsule,delayed 20 mg PO BID 03/20/22 05/15/22 release ondansetron 4 mg disintegrating 2 mg PO Q6-8H PRN 03/20/22 05/15/22 tablet pantoprazole 40 mg tablet,delayed 40 mg PO BID 03/20/22 05/15/22 release promethazine 12.5 mg tablet 12.5 mg PO Q6-8H 03/20/22 sucralfate 1 gram tablet 1 g PO QID 03/20/22 tamsulosin 0.4 mg capsule 0.4 mg PO DAILY 03/20/22 aluminum-mag hydroxide-simethicone 20 ml PO QID PRN 05/15/22 05/15/22 400 mg-400 mg-40 mg/5 mL oral susp (Mintox Maximum Strength) Previous Rx's Medication Instructions Recorded metoclopramide HCl 10 mg tablet 10 mg PO Q6H PRN nausea and 02/18/21 (Reglan) vomiting #7 tabs valacyclovir 1 gram tablet 1,000 mg PO Q12H 10 days #20 tabs 02/24/21 dicyclomine 20 mg tablet 20 mg PO QID PRN abdominal pain 07/29/22 #12 tabs ondansetron 4 mg disintegrating 4 mg PO Q6-8H PRN nausea and 07/29/22 tablet vomiting #7 tabs Allergies Allergy/AdvReac Type Severity Reaction Status Date / Time amoxicillin Allergy Vomiting Verified 07/29/22 15:02 lamotrigine [From Lamictal] Allergy Hives Verified 07/29/22 15:02 levetiracetam [From Keppra] Allergy Hives Verified 07/29/22 15:02 Review of Systems Review of Systems: Yes all other systems are reviewed and are negative [facility] Past Medical History Medical History Back pain Bipolar 1 disorder Neck pain PTSD (post-traumatic stress disorder) Seizure Seizure disorder Sleep disorder TBI (traumatic brain injury) Surgical History Hx of hernia repair Family History Family History Mother Cancer Family/Other No problems noted. Social History Social History Alcohol intake: former Patient Tobacco Use Status: Former Tobacco user Smoked in Last 30 Days: Yes Use of substances other than those prescribed or required for medical reasons: No Advance Directives: No Advance Directives Information Provided: Yes Physical Exam Vital Signs: Vital Signs: Last Vital Signs Temp 97.3 F 07/29/22 23:10 Pulse 91 07/29/22 23:10 Resp 18 07/29/22 23:10 BP 120/83 07/29/22 23:10 Pulse Ox 97 07/29/22 23:10 O2 Del Method 07/29/22 23:10 BMI result Body Mass Index 26.4 Appearance: Alert. Oriented X3. No acute distress. Eyes: PERRLA, No Nystagmus ENT: Pharynx normal. Oral Mucosa moist Neck: Normal inspection. Neck supple. CVS: Normal heart rate and rhythm. Pulses normal. Respiratory: No respiratory distress. Equal air entry bilateral, no wheezing/rales/rhonchi Abdomen: Soft and nontender. Bowel sounds are present, no mass palpable, no CVA tenderness Skin: Skin warm and dry. Normal skin color. Normal skin turgor. Extremities: No lower extremity edema. No calf tenderness Neuro: Oriented X 3. No motor deficit. No sensory deficit.No cerebellar signs , cranial nerves II-XII intact Medications Administered Discontinued Medications Generic Name Dose Route Start Last Admin Trade Name Corbinq PRN Reason Stop Dose Admin Acetaminophen 650 mg 07/29/22 20:56 07/29/22 22:56 Acetaminophen 325 Mg Tablet PO 07/29/22 20:57 650 mg ONCE ONE Administration Dicyclomine HCl 20 mg 07/29/22 21:39 07/29/22 23:57 Dicyclomine Hcl 10 Mg Capsule PO 07/29/22 21:40 20 mg ONCE ONE Administration Sodium Chloride 1,000 mls @ 999 mls/hr 07/29/22 22:25 07/29/22 23:06 Ns IV 07/29/22 23:25 999 mls/hr .Q1H1M ONE Administration Loperamide HCl 4 mg 07/29/22 20:19 07/29/22 20:27 Loperamide Hcl 2 Mg Capsule PO 07/29/22 20:20 4 mg ONCE ONE Administration Ondansetron HCl 4 mg 07/29/22 20:20 07/29/22 20:26 Ondansetron Odt 4 Mg Tab.Rapdis TRANSLINGU 07/29/22 20:21 4 mg ONCE ONE Administration Ondansetron HCl 4 mg 07/29/22 22:25 07/29/22 22:28 Ondansetron Hcl 4 Mg/2 Ml Vial IVPUSH 07/29/22 22:26 4 mg ONCE ONE Administration Tramadol HCl 50 mg 07/29/22 21:34 07/29/22 23:57 Tramadol Hcl 50 Mg Tablet PO 07/29/22 21:35 50 mg ONCE ONE Administration Medical Decision Making Medical Decision Making MDM Narrative: Patient with acute gastroenteritis feeling much better after coming to the ER labs are stable taking p.o. fluids will discharge patient home on Zofran and Imodium patient was given IV fluids also has continued to complain of nausea now feeling much better discharge patient home Lab Data MDM Lab Attestation statement: I reviewed the patient's lab results. Result Diagrams: 07/29/22 16:19 07/29/22 16:19 Labs: Lab Results 07/29/22 07/29/22 07/29/22 Range/Units 16:19 16:19 16:19 WBC 9.0 (4.8-10.8) X10*3/uL RBC 5.46 (4.60-5.80) X10*6/uL Hgb 15.2 (14.0-18.0) g/dl Hct 45.7 (42.0-52.0) % MCV 83.7 (80.0-98.0) fL MCH 27.8 (27.0-33.0) pg MCHC 33.3 (31.0-36.0) g/dl RDW 12.9 (11.0-16.0) % Plt Count 333 (160-400) X10*3/uL MPV 10.0 (9.4-12.4) fL Immature Gran % (Auto) 0.3 (0.0-0.4) % Neut % (Auto) 83.7 H (45-73) % Lymph % (Auto) 10.5 L (20-40) % [place] % (Auto) 4.6 (2-11) % Eos % (Auto) 0.3 (0-4) % Baso % (Auto) 0.6 (0-2) % Lymph # (Auto) 0.9 L (1.2-4.9) X10*3/uL [place] # (Auto) 0.4 (0.1-1.2) X10*3/uL Eos # (Auto) 0.0 (0.0-0.4) X10*3/uL Baso # (Auto) 0.1 (0.0-0.2) X10*3/uL Abs Immat Gran (auto) 0.03 (0.00-0.03) X10*3/uL Absolute Neuts (auto) 7.5 (2.0-8.3) x10*3/uL Absolute Nucleated RBC 0.000 (0.0-0.012) X10*3/uL Nucleated RBC % (auto) 0.0 (0.0-0.2) /100WBC Sodium 138 (135-145) mmol/L Potassium 4.0 (3.3-5.1) mmol/L Chloride 107 (96-108) mmol/L Carbon Dioxide 24 (22-29) mmol/L Anion Gap 11 L (12-20) BUN 25 H (9-16) mg/dL Creatinine 0.75 (0.5-1.4) mg/dL Estim Creat Clear Calc 110.6 Estimated GFR > 60 Random Glucose 121 H (60-115) mg/dL Calcium 9.8 D (8.4-10.2) mg/dL Total Bilirubin 0.6 (0.0-1.0) mg/dL AST 46 H (5-37) U/L ALT 70 H (0-40) U/L Alkaline Phosphatase 116 (39-117) U/L Total Protein 7.7 (6.5-8.0) g/dL Albumin 4.8 (3.5-5.0) g/dL Influenza Type A (PCR) NEGATIVE (Negative) Influenza Type B (PCR) NEGATIVE (Negative) RSV RNA Qual (PCR) NEGATIVE (Negative) SARS-CoV-2 RNA (RT-PCR) NEGATIVE (Negative) Discharge Plan Discharge Clinical Impression: Gastroenteritis Patient Disposition: Home, Self-Care Instructions: Gastroenteritis (ED) Additional Instructions: Drink plenty of fluids Med for nausea and abdominal cramps as prescribed Follow with PCP if not better Prescriptions: New dicyclomine 20 mg tablet 20 mg PO QID PRN (Reason: abdominal pain) Qty: 12 0RF ondansetron 4 mg tablet,disintegrating 4 mg PO Q6-8H PRN (Reason: nausea and vomiting) Qty: 7 0RF No Action valacyclovir 1 gram tablet 1,000 mg PO Q12H 10 Days Qty: 20 0RF metoclopramide HCl [Reglan] 10 mg tablet 10 mg PO Q6H PRN (Reason: nausea and vomiting) Qty: 7 0RF ondansetron 4 mg tablet,disintegrating 2 mg PO Q6-8H PRN promethazine 12.5 mg tablet 12.5 mg PO Q6-8H pantoprazole 40 mg tablet,delayed release (DR/EC) 40 mg PO BID sucralfate 1 gram tablet 1 g PO QID albuterol sulfate [ProAir HFA] 90 mcg/actuation HFA aerosol inhaler 0 mcg inhalation nifedipine 30 mg tablet extended release 30 mg PO DAILY aripiprazole 15 mg tablet 15 mg PO DAILY nifedipine 30 mg tablet extended release 24hr 30 mg PO DAILY gabapentin 400 mg capsule 400 mg PO TID omeprazole 20 mg capsule,delayed release(DR/EC) 20 mg PO BID tamsulosin 0.4 mg capsule 0.4 mg PO DAILY lidocaine 4 % cream topical diazepam 5 mg tablet 5 mg PO BID PRN alum-mag hydroxide-simeth [Mintox Maximum Strength] 400-400-40 mg/5 mL suspension 20 ml PO QID PRN
--- NOTE | 2022-07-29 22:58 | PC.NURSE ---
Patient given zofran x 2 patient still c/o nausea. Will give normal saline 1L.
[2022-07-29 23:10] VITALS: BP 120/83; PULSE 91; RESP 18; TEMP 36.3; O2SAT 97
[2022-07-30 00:12] VITALS: BP 138/89; PULSE 75; RESP 18; TEMP 36.5
== END 2022-07-30 00:18 | disposition home or self-care (01) ==
PROVIDERS: Emergency Provider Internal Medicine
DX: K52.9 Noninfective gastroenteritis and colitis, unspecified (principal); R11.2 Nausea with vomiting, unspecified; Z20.828 Contact with and (suspected) exposure to other viral communicable diseases; Z87.891 Personal history of nicotine dependence
CPT/HCPCS: 0241U; 36415; 80053; 85025; 96374; 99284; 99285; J2405

== ENCOUNTER 2022-08-08 22:42 | Emergency (ER) | payer OTHER, SELFPAY ==
[2022-08-08 22:45] VITALS: BP 145/103; PULSE 101; RESP 18; TEMP 36; O2SAT 95; BMI 28.7
[2022-08-08 22:58] LABS: MANUAL DIFF FLAG NO
[2022-08-08 22:59] LABS: Basophils Absolute Auto 0.1 X10*3/uL (0.0-0.2); Basophils Percent Auto 1.2 % (0-2); Eosinophils Absolute Auto 0.3 X10*3/uL (0.0-0.4); Eosinophils Percent Auto 4.4 % (0-4); Hematocrit 43.2 % (42.0-52.0); Hemoglobin 14.7 g/dl (14.0-18.0); Imm Gran Abs Auto 0.03 X10*3/uL (0.00-0.03); Imm Gran Pct Auto 0.4 % (0.0-0.4); Lymphocytes Absolute Auto 2.9 X10*3/uL (1.2-4.9); Lymphocytes Percent Auto 37.4 % (20-40); Mean Corpuscular Hemoglobin 28.4 pg (27.0-33.0); Mean Corpuscular Volume 83.6 fL (80.0-98.0); Mean Platelet Volume 9.7 fL (9.4-12.4); Monocytes Absolute Auto 0.6 X10*3/uL (0.1-1.2); Neutrophils Absolute Auto 3.8 x10*3/uL (2.0-8.3); Neutrophils Percent Auto 48.6 % (45-73); Platelet Count 318 X10*3/uL (160-400); Red Blood Count 5.17 X10*6/uL (4.60-5.80); Red Cell Distribution Width 12.7 % (11.0-16.0); White Blood Count 7.8 X10*3/uL (4.8-10.8)
[2022-08-08 23:33] LABS: Alanine Aminotransferase 63 U/L (0-40); Albumin Level 4.4 g/dL (3.5-5.0); Alkaline Phosphatase 108 U/L (39-117); Anion Gap 14 (12-20); Aspartate Amino Transferase 69 U/L (5-37); Bilirubin Total 0.3 mg/dL (0.0-1.0); Blood Urea Nitrogen 22 mg/dL (9-16); Calcium 9.1 mg/dL (8.4-10.2); Carbon Dioxide 24 mmol/L (22-29); Chloride 106 mmol/L (96-108); Estimated Glomerular Filt Rate > 60; Glucose Random 99 mg/dL (60-115); Potassium 3.9 mmol/L (3.3-5.1); Sodium 140 mmol/L (135-145); Total Protein 7.3 g/dL (6.5-8.0)
[2022-08-09 01:46] VITALS: BP 123/86; PULSE 75; RESP 16; TEMP 36.6; O2SAT 97
--- NOTE | 2022-08-09 02:05 | ED_ITS ---
HPI - General Adult General Chief complaint: General Medical Stated complaint: Stool black Time Seen by Provider: 08/09/22 01:49 Source: patient Mode of arrival: ambulatory History of Present Illness HPI narrative: Patient having loose bowels for last 4 days took Pepto-Bismol now stool is dark in color no history of ulcers complaining of diffuse abdominal pain Related Data Home Medications Medication Instructions Recorded Confirmed albuterol sulfate 90 mcg/actuation 0 mcg inhalation 03/20/22 05/15/22 aerosol inhaler (ProAir HFA) aripiprazole 15 mg tablet 15 mg PO DAILY 03/20/22 05/15/22 diazepam 5 mg tablet 5 mg PO BID PRN 03/20/22 05/15/22 gabapentin 400 mg capsule 400 mg PO TID 03/20/22 05/15/22 lidocaine 4 % topical cream g topical 03/20/22 05/15/22 nifedipine 30 mg tablet,extended 30 mg PO DAILY 03/20/22 05/15/22 release nifedipine 30 mg tablet,extended 30 mg PO DAILY 03/20/22 release 24 hr omeprazole 20 mg capsule,delayed 20 mg PO BID 03/20/22 05/15/22 release ondansetron 4 mg disintegrating 2 mg PO Q6-8H PRN 03/20/22 05/15/22 tablet pantoprazole 40 mg tablet,delayed 40 mg PO BID 03/20/22 05/15/22 release promethazine 12.5 mg tablet 12.5 mg PO Q6-8H 03/20/22 sucralfate 1 gram tablet 1 g PO QID 03/20/22 tamsulosin 0.4 mg capsule 0.4 mg PO DAILY 03/20/22 aluminum-mag hydroxide-simethicone 20 ml PO QID PRN 05/15/22 05/15/22 400 mg-400 mg-40 mg/5 mL oral susp (Mintox Maximum Strength) Previous Rx's Medication Instructions Recorded metoclopramide HCl 10 mg tablet 10 mg PO Q6H PRN nausea and 02/18/21 (Reglan) vomiting #7 tabs valacyclovir 1 gram tablet 1,000 mg PO Q12H 10 days #20 tabs 02/24/21 dicyclomine 20 mg tablet 20 mg PO QID PRN abdominal pain 07/29/22 #12 tabs ondansetron 4 mg disintegrating 4 mg PO Q6-8H PRN nausea and 07/29/22 tablet vomiting #7 tabs Allergies Allergy/AdvReac Type Severity Reaction Status Date / Time amoxicillin Allergy Vomiting Verified 07/29/22 15:02 lamotrigine [From Lamictal] Allergy Hives Verified 07/29/22 15:02 levetiracetam [From Keppra] Allergy Hives Verified 07/29/22 15:02 Review of Systems Review of Systems: Yes all other systems are reviewed and are negative [facility] Past Medical History Medical History Back pain Bipolar 1 disorder Neck pain PTSD (post-traumatic stress disorder) Seizure Seizure disorder Sleep disorder TBI (traumatic brain injury) Surgical History Hx of hernia repair Family History Family History Mother Cancer Family/Other No problems noted. Social History Social History Alcohol intake: former Patient Tobacco Use Status: Former Tobacco user Advance Directives: No Advance Directives Information Provided: No Physical Exam ED Vital Signs: Vital Signs - 24 hr 08/08/22 22:45 08/09/22 01:46 Temperature 96.8 F 97.8 F Pulse Rate 101 H 75 Respiratory Rate 18 16 Blood Pressure 145/103 H 123/86 Pulse Oximetry 95 97 Oxygen Delivery Method Room Air Room Air BMI result Body Mass Index 28.7 Appearance: Alert. Oriented X3. No acute distress. Eyes: PERRLA, No Nystagmus ENT: Pharynx normal. Oral Mucosa moist Neck: Normal inspection. Neck supple. CVS: Normal heart rate and rhythm. Pulses normal. Respiratory: No respiratory distress. Equal air entry bilateral, no wheezing/rales/rhonchi Abdomen: Soft and nontender. Bowel sounds are present, no mass palpable, no CVA tenderness rectal: normal stool , guaic neg Skin: Skin warm and dry. Normal skin color. Normal skin turgor. Extremities: No lower extremity edema. No calf tenderness Neuro: Oriented X 3. No motor deficit. No sensory deficit.No cerebellar signs , cranial nerves II-XII intact Medical Decision Making Medical Decision Making [facility] Narrative: Occult blood was negative dark stool likely from Pepto-Bismol H&H stable discharge patient home Lab Data [facility] Lab Attestation statement: I reviewed the patient's lab results. 08/08/22 22:53 08/08/22 22:53 Labs: Lab Results 08/08/22 08/08/22 08/09/22 Range/Units 22:53 22:53 02:35 WBC 7.8 (4.8-10.8) X10*3/uL RBC 5.17 (4.60-5.80) X10*6/uL Hgb 14.7 (14.0-18.0) g/dl Hct 43.2 (42.0-52.0) % MCV 83.6 (80.0-98.0) fL MCH 28.4 (27.0-33.0) pg MCHC 34.0 (31.0-36.0) g/dl RDW 12.7 (11.0-16.0) % Plt Count 318 (160-400) X10*3/uL MPV 9.7 (9.4-12.4) fL Immature Gran % (Auto) 0.4 (0.0-0.4) % Neut % (Auto) 48.6 (45-73) % Lymph % (Auto) 37.4 (20-40) % [place] % (Auto) 8.0 (2-11) % Eos % (Auto) 4.4 H (0-4) % Baso % (Auto) 1.2 (0-2) % Lymph # (Auto) 2.9 (1.2-4.9) X10*3/uL [place] # (Auto) 0.6 (0.1-1.2) X10*3/uL Eos # (Auto) 0.3 (0.0-0.4) X10*3/uL Baso # (Auto) 0.1 (0.0-0.2) X10*3/uL Abs Immat Gran (auto) 0.03 (0.00-0.03) X10*3/uL Absolute Neuts (auto) 3.8 (2.0-8.3) x10*3/uL Absolute Nucleated RBC 0.000 (0.0-0.012) X10*3/uL Nucleated RBC % (auto) 0.0 (0.0-0.2) /100WBC Sodium 140 (135-145) mmol/L Potassium 3.9 (3.3-5.1) mmol/L Chloride 106 (96-108) mmol/L Carbon Dioxide 24 (22-29) mmol/L Anion Gap 14 (12-20) BUN 22 H (9-16) mg/dL Creatinine 0.85 (0.5-1.4) mg/dL Estim Creat Clear Calc 109.0 Estimated GFR > 60 Random Glucose 99 (60-115) mg/dL Calcium 9.1 D (8.4-10.2) mg/dL Total Bilirubin 0.3 (0.0-1.0) mg/dL AST 69 H (5-37) U/L ALT 63 H (0-40) U/L Alkaline Phosphatase 108 (39-117) U/L Total Protein 7.3 (6.5-8.0) g/dL Albumin 4.4 (3.5-5.0) g/dL Stool Occult Blood NEGATIVE (NEGATIVE) Discharge Plan Discharge Clinical Impression: Gastroenteritis Patient Disposition: Home, Self-Care Instructions: Gastroenteritis (ED) Additional Instructions: Drink plenty of fluids Your dark stool is not from bleeding it is from the use of Pepto-Bismol Follow with PCP as needed Prescriptions: No Action valacyclovir 1 gram tablet 1,000 mg PO Q12H 10 Days Qty: 20 0RF metoclopramide HCl [Reglan] 10 mg tablet 10 mg PO Q6H PRN (Reason: nausea and vomiting) Qty: 7 0RF dicyclomine 20 mg tablet 20 mg PO QID PRN (Reason: abdominal pain) Qty: 12 0RF ondansetron 4 mg tablet,disintegrating 4 mg PO Q6-8H PRN (Reason: nausea and vomiting) Qty: 7 0RF ondansetron 4 mg tablet,disintegrating 2 mg PO Q6-8H PRN promethazine 12.5 mg tablet 12.5 mg PO Q6-8H pantoprazole 40 mg tablet,delayed release (DR/EC) 40 mg PO BID sucralfate 1 gram tablet 1 g PO QID albuterol sulfate [ProAir HFA] 90 mcg/actuation HFA aerosol inhaler 0 mcg inhalation nifedipine 30 mg tablet extended release 30 mg PO DAILY aripiprazole 15 mg tablet 15 mg PO DAILY nifedipine 30 mg tablet extended release 24hr 30 mg PO DAILY gabapentin 400 mg capsule 400 mg PO TID omeprazole 20 mg capsule,delayed release(DR/EC) 20 mg PO BID tamsulosin 0.4 mg capsule 0.4 mg PO DAILY lidocaine 4 % cream topical diazepam 5 mg tablet 5 mg PO BID PRN alum-mag hydroxide-simeth [Mintox Maximum Strength] 400-400-40 mg/5 mL suspension 20 ml PO QID PRN Interventions: ED Discharge Assessment Last Done: 08/09/22 03:02 Discharge Date/Time: 08/09/22 03:02
[2022-08-09 02:39] LABS: OBS Int Ctl Valid YES; OBS1 NEGATIVE (NEGATIVE)
--- NOTE | 2022-08-09 03:01 | PC.NURSE ---
Discharge instructions reviewed with pt. Pt verbalizes understanding.
== END 2022-08-09 03:02 | disposition home or self-care (01) ==
PROVIDERS: Emergency Provider Internal Medicine
DX: K52.9 Noninfective gastroenteritis and colitis, unspecified (principal); Z87.891 Personal history of nicotine dependence; Z79.899 Other long term (current) drug therapy
CPT/HCPCS: 36415; 80053; 82272; 85025; 99283

== ENCOUNTER 2022-08-16 21:29 | Emergency (ER) | payer OTHER, SELFPAY ==
[2022-08-16 21:37] VITALS: BP 138/88; BP 152/88; PULSE 73; PULSE 79; RESP 18; TEMP 37.1; O2SAT 95; O2SAT 96; BMI 26.5
--- NOTE | 2022-08-16 22:24 | ED.LOWEXIN ---
HPI - Extremity Injury (Lower) General Chief Complaint: Extremity Injury, Lower Stated Complaint: leg weakness Time Seen by Provider: 08/16/22 21:58 History of Present Illness HPI Narrative: Patient is a 36-year-old male with a history of traumatic brain injury history of partial seizures baseline on medications. History of restless leg syndrome for the last 2 years. Patient has been having leg numbness and pain for the last 2 years. Complaining having pain numbness to the legs that is similar for last 2 years. Patient denies any bowel urinary incontinence. Lives in a half-way. No fever no chills. No bowel urinary incontinence. Patient denies any dizziness. Not on any blood thinners. He has a history of atrial fibrillation in the past. Patient went to [facility] for similar symptoms a few days prior. Presented to [facility] the same. Related Data Home Medications Medication Instructions Recorded Confirmed albuterol sulfate 90 mcg/actuation 0 mcg inhalation 03/20/22 05/15/22 aerosol inhaler (ProAir HFA) aripiprazole 15 mg tablet 15 mg PO DAILY 03/20/22 05/15/22 diazepam 5 mg tablet 5 mg PO BID PRN 03/20/22 05/15/22 gabapentin 400 mg capsule 400 mg PO TID 03/20/22 05/15/22 lidocaine 4 % topical cream g topical 03/20/22 05/15/22 nifedipine 30 mg tablet,extended 30 mg PO DAILY 03/20/22 05/15/22 release nifedipine 30 mg tablet,extended 30 mg PO DAILY 03/20/22 release 24 hr omeprazole 20 mg capsule,delayed 20 mg PO BID 03/20/22 05/15/22 release ondansetron 4 mg disintegrating 2 mg PO Q6-8H PRN 03/20/22 05/15/22 tablet pantoprazole 40 mg tablet,delayed 40 mg PO BID 03/20/22 05/15/22 release promethazine 12.5 mg tablet 12.5 mg PO Q6-8H 03/20/22 sucralfate 1 gram tablet 1 g PO QID 03/20/22 tamsulosin 0.4 mg capsule 0.4 mg PO DAILY 03/20/22 aluminum-mag hydroxide-simethicone 20 ml PO QID PRN 05/15/22 05/15/22 400 mg-400 mg-40 mg/5 mL oral susp (Mintox Maximum Strength) Previous Rx's Medication Instructions Recorded metoclopramide HCl 10 mg tablet 10 mg PO Q6H PRN nausea and 02/18/21 (Reglan) vomiting #7 tabs valacyclovir 1 gram tablet 1,000 mg PO Q12H 10 days #20 tabs 02/24/21 dicyclomine 20 mg tablet 20 mg PO QID PRN abdominal pain 07/29/22 #12 tabs ondansetron 4 mg disintegrating 4 mg PO Q6-8H PRN nausea and 07/29/22 tablet vomiting #7 tabs Allergies Allergy/AdvReac Type Severity Reaction Status Date / Time amoxicillin Allergy Vomiting Verified 07/29/22 15:02 lamotrigine [From Lamictal] Allergy Hives Verified 07/29/22 15:02 levetiracetam [From Keppra] Allergy Hives Verified 07/29/22 15:02 Review of Systems Review of Systems: No fever no chills no history of IV drug use Not on blood thinners Positive pain to both legs, numbness to both legs All system reviewed otherwise negative PMFSH Past Medical History Attestation statement: The following information was validated with the patient. Medical History Back pain Bipolar 1 disorder Neck pain PTSD (post-traumatic stress disorder) Seizure Seizure disorder Sleep disorder TBI (traumatic brain injury) Surgical History Hx of hernia repair Family History Family History Mother Cancer Family/Other No problems noted. Social History Social History Alcohol intake: former Patient Tobacco Use Status: Former Tobacco user Advance Directives: No Advance Directives Information Provided: No Physical Exam Vital Signs: Vital Signs: Last Vital Signs Temp 98.0 F 08/16/22 23:59 Pulse 71 08/16/22 23:59 Resp 17 08/16/22 23:59 BP 124/76 08/16/22 23:59 Pulse Ox 95 08/16/22 23:59 O2 Del Method 08/16/22 23:59 BMI result Body Mass Index 26.5 Appearance: Alert. Oriented X3. No acute distress. Eyes: Pupils equal, round and reactive to light. ENT: Pharynx normal. Neck: Normal inspection. Neck supple. No lymph nodes noted. No crepitus CVS: Normal heart rate and rhythm. Pulses normal. Normal S1 and S2 Respiratory: No respiratory distress. Breath sounds normal. No Wheezing. No rales Abdomen: Soft and nontender. No rigidity. No distention. good BS x4 Skin: Skin warm and dry. Normal skin color. Normal skin turgor. Extremities: No lower extremity edema. Neurovascular intact to all extremities. No Lacerations. No Rash Neuro: Oriented X 3. No motor deficit. No sensory deficit. Moving all extermities. No slurred speech. Sensation in bilateral lower extremity intact. Reflexes equal and patella. Able to lift up each leg without any difficulties. Medical Decision Making Differential Diagnosis Cauda equina syndrome, restless leg syndrome, chronic leg pain, patient has a history of similar episodes in the past. The symptom has been ongoing for 2 years. Have been diagnosed with restless leg syndrome. Unlikely to have court-appointed syndrome as patient has no bowel urinary incontinence. No new weakness. No new pain. Sensation intact. There is good pulses to bilateral lower extremity. Unlikely this is secondary CVA as is symmetrical. This is chronic. Will obtain old records from [facility]. Will get baseline labs. Will attempt to ambulate patient. Patient ambulated well in the emergency department. No distress. Electrolytes unremarkable. Old record obtained from [facility]. Patient left against medical advice. Triage note states patient on gabapentin has a prescription at the pharmacy. Requested for medication. Patient denies any focal weakness. Denies any nausea vomiting. No systemic complaints. He is well appearing. Ambulated with a normal gait. Now has access to take gabapentin. Will discharge patient home. No bowel urinary incontinence suggest cauda equina syndrome. No focal weakness. In stable condition. Patient understood the need for follow-up. Lab Data MDM Lab Attestation statement: I reviewed the patient's lab results. 08/16/22 22:34 08/16/22 22:34 Labs: Lab Results 08/16/22 08/16/22 Range/Units 22:34 22:34 WBC 6.9 (4.8-10.8) X10*3/uL RBC 4.94 (4.60-5.80) X10*6/uL Hgb 13.8 L (14.0-18.0) g/dl Hct 41.3 L (42.0-52.0) % MCV 83.6 (80.0-98.0) fL MCH 27.9 (27.0-33.0) pg MCHC 33.4 (31.0-36.0) g/dl RDW 12.9 (11.0-16.0) % Plt Count 259 (160-400) X10*3/uL MPV 9.6 (9.4-12.4) fL Immature Gran % (Auto) 0.4 (0.0-0.4) % Neut % (Auto) 51.7 (45-73) % Lymph % (Auto) 33.4 (20-40) % [place] % (Auto) 9.6 (2-11) % Eos % (Auto) 4.2 H (0-4) % Baso % (Auto) 0.7 (0-2) % Lymph # (Auto) 2.3 (1.2-4.9) X10*3/uL [place] # (Auto) 0.7 (0.1-1.2) X10*3/uL Eos # (Auto) 0.3 (0.0-0.4) X10*3/uL Baso # (Auto) 0.1 (0.0-0.2) X10*3/uL Abs Immat Gran (auto) 0.03 (0.00-0.03) X10*3/uL Absolute Neuts (auto) 3.5 (2.0-8.3) x10*3/uL Absolute Nucleated RBC 0.000 (0.0-0.012) X10*3/uL Nucleated RBC % (auto) 0.0 (0.0-0.2) /100WBC Sodium 139 (135-145) mmol/L Potassium 3.4 (3.3-5.1) mmol/L Chloride 106 (96-108) mmol/L Carbon Dioxide 27 (22-29) mmol/L Anion Gap 9 L (12-20) BUN 19 H (9-16) mg/dL Creatinine 0.79 (0.5-1.4) mg/dL Estim Creat Clear Calc 105.0 Estimated GFR > 60 Random Glucose 106 (60-115) mg/dL Calcium 8.7 (8.4-10.2) mg/dL Discharge Plan Discharge Clinical Impression: Restless leg Patient Disposition: Home, Self-Care Instructions: Restless Legs Syndrome (ED) Prescriptions: No Action valacyclovir 1 gram tablet 1,000 mg PO Q12H 10 Days Qty: 20 0RF metoclopramide HCl [Reglan] 10 mg tablet 10 mg PO Q6H PRN (Reason: nausea and vomiting) Qty: 7 0RF dicyclomine 20 mg tablet 20 mg PO QID PRN (Reason: abdominal pain) Qty: 12 0RF ondansetron 4 mg tablet,disintegrating 4 mg PO Q6-8H PRN (Reason: nausea and vomiting) Qty: 7 0RF ondansetron 4 mg tablet,disintegrating 2 mg PO Q6-8H PRN promethazine 12.5 mg tablet 12.5 mg PO Q6-8H pantoprazole 40 mg tablet,delayed release (DR/EC) 40 mg PO BID sucralfate 1 gram tablet 1 g PO QID albuterol sulfate [ProAir HFA] 90 mcg/actuation HFA aerosol inhaler 0 mcg inhalation nifedipine 30 mg tablet extended release 30 mg PO DAILY aripiprazole 15 mg tablet 15 mg PO DAILY nifedipine 30 mg tablet extended release 24hr 30 mg PO DAILY gabapentin 400 mg capsule 400 mg PO TID omeprazole 20 mg capsule,delayed release(DR/EC) 20 mg PO BID tamsulosin 0.4 mg capsule 0.4 mg PO DAILY lidocaine 4 % cream topical diazepam 5 mg tablet 5 mg PO BID PRN alum-mag hydroxide-simeth [Mintox Maximum Strength] 400-400-40 mg/5 mL suspension 20 ml PO QID PRN Referrals: Physician,Unknown J [Primary Care Provider] -
[2022-08-16 22:37] LABS: MANUAL DIFF FLAG NO
[2022-08-16 22:38] LABS: Basophils Absolute Auto 0.1 X10*3/uL (0.0-0.2); Basophils Percent Auto 0.7 % (0-2); Eosinophils Absolute Auto 0.3 X10*3/uL (0.0-0.4); Eosinophils Percent Auto 4.2 % (0-4); Hematocrit 41.3 % (42.0-52.0); Hemoglobin 13.8 g/dl (14.0-18.0); Imm Gran Abs Auto 0.03 X10*3/uL (0.00-0.03); Imm Gran Pct Auto 0.4 % (0.0-0.4); Lymphocytes Absolute Auto 2.3 X10*3/uL (1.2-4.9); Lymphocytes Percent Auto 33.4 % (20-40); Mean Corpuscular HGB Conc 33.4 g/dl (31.0-36.0); Mean Corpuscular Hemoglobin 27.9 pg (27.0-33.0); Mean Corpuscular Volume 83.6 fL (80.0-98.0); Mean Platelet Volume 9.6 fL (9.4-12.4); Monocytes Absolute Auto 0.7 X10*3/uL (0.1-1.2); Monocytes Percent Auto 9.6 % (2-11); Neutrophils Absolute Auto 3.5 x10*3/uL (2.0-8.3); Neutrophils Percent Auto 51.7 % (45-73); Platelet Count 259 X10*3/uL (160-400); Red Blood Count 4.94 X10*6/uL (4.60-5.80); Red Cell Distribution Width 12.9 % (11.0-16.0); White Blood Count 6.9 X10*3/uL (4.8-10.8)
[2022-08-16 22:53] LABS: Anion Gap 9 (12-20); Blood Urea Nitrogen 19 mg/dL (9-16); Calcium 8.7 mg/dL (8.4-10.2); Carbon Dioxide 27 mmol/L (22-29); Chloride 106 mmol/L (96-108); Estimated Glomerular Filt Rate > 60; Glucose Random 106 mg/dL (60-115); Potassium 3.4 mmol/L (3.3-5.1); Sodium 139 mmol/L (135-145)
--- NOTE | 2022-08-16 23:58 | MHC.EDTECH ---
pt ambulated without any problems ,he said the cramps starts to come back
[2022-08-16 23:59] VITALS: BP 124/76; PULSE 71; RESP 17; TEMP 36.7; O2SAT 95
--- NOTE | 2022-08-17 01:04 | PC.NURSE ---
pt resting comfortably on stretcher at this time. no new requests at this time
[2022-08-17 02:24] VITALS: BP 123/84; PULSE 69; RESP 16; TEMP 36.4; O2SAT 96
--- NOTE | 2022-08-17 02:37 | PC.NURSE ---
discharge order placed for this pt. this rn attempted to discharge pt. pt states he usually walks home. pt states living a 35 minute walk away. this RN discussed with rn relief charge. inspector clip on sunglasses okay'd pt to stay in room until morning. pt provided with blanket at this time
--- NOTE | 2022-08-17 06:10 | PC.NURSE ---
pt verbalized understanding of discharge instructions. pt provided with discharge packet. pt ambulatory at time of discharge. skin pwd. pt discharge to waiting room to await bus
== END 2022-08-17 06:11 | disposition home or self-care (01) ==
PROVIDERS: Emergency Provider Emergency Medicine Emergency Medical Services
DX: G25.81 Restless legs syndrome (principal); Z79.899 Other long term (current) drug therapy
CPT/HCPCS: 36415; 80048; 85025; 99283; 99284

== ENCOUNTER 2022-08-20 01:08 | Emergency (ER) | payer OTHER, SELFPAY ==
[2022-08-20 01:27] VITALS: BP 126/92; BP 140/98; PULSE 69; PULSE 70; RESP 16; TEMP 36.6; O2SAT 96; O2SAT 98; BMI 26.5
[2022-08-20 01:47] LABS: MANUAL DIFF FLAG NO
--- NOTE | 2022-08-20 01:48 | PC.NURSE ---
PT A&Ox4, reports 8/10 umbilical region pain. PT reports increase weakness, chills, N/V for the last two days. Reports last BM last night. + Bowel sounds in all quadrants. Tender to touch to umbilical region. IV established, blood work collected and sent to lab.
[2022-08-20 01:49] LABS: Basophils Absolute Auto 0.1 X10*3/uL (0.0-0.2); Basophils Percent Auto 1.1 % (0-2); Eosinophils Absolute Auto 0.3 X10*3/uL (0.0-0.4); Eosinophils Percent Auto 4.2 % (0-4); Hemoglobin 14.8 g/dl (14.0-18.0); Imm Gran Abs Auto 0.02 X10*3/uL (0.00-0.03); Imm Gran Pct Auto 0.3 % (0.0-0.4); Lymphocytes Absolute Auto 2.1 X10*3/uL (1.2-4.9); Lymphocytes Percent Auto 34.4 % (20-40); Mean Corpuscular HGB Conc 34.4 g/dl (31.0-36.0); Mean Corpuscular Hemoglobin 28.4 pg (27.0-33.0); Mean Corpuscular Volume 82.5 fL (80.0-98.0); Mean Platelet Volume 9.8 fL (9.4-12.4); Monocytes Absolute Auto 0.6 X10*3/uL (0.1-1.2); Monocytes Percent Auto 9.8 % (2-11); Neutrophils Absolute Auto 3.1 x10*3/uL (2.0-8.3); Neutrophils Percent Auto 50.2 % (45-73); Platelet Count 254 X10*3/uL (160-400); Red Blood Count 5.21 X10*6/uL (4.60-5.80); Red Cell Distribution Width 12.7 % (11.0-16.0); White Blood Count 6.2 X10*3/uL (4.8-10.8)
[2022-08-20 02:06] LABS: Anion Gap 13 (12-20); Blood Urea Nitrogen 22 mg/dL (9-16); Calcium 8.8 mg/dL (8.4-10.2); Carbon Dioxide 22 mmol/L (22-29); Chloride 107 mmol/L (96-108); Estimated Glomerular Filt Rate > 60; Glucose Random 105 mg/dL (60-115); Potassium 3.7 mmol/L (3.3-5.1); Sodium 138 mmol/L (135-145)
[2022-08-20 02:10] LABS: COVID-19 Test Negative (Negative); IDNOW Serial# 16C4AD1C; IDNOW Serial# BCCEAD1C; Influenza A Negative (Negative); Influenza B2 Negative (Negative)
--- NOTE | 2022-08-20 02:26 | ED.GENADULT ---
HPI - General Adult General Chief complaint: General Medical Stated complaint: VOMITING Time Seen by Provider: 08/20/22 02:11 Source: patient Mode of arrival: ambulatory Limitations: no limitations History of Present Illness HPI narrative: Patient comes to the emergency room complaining feeling cold, vomiting. Patient denies fever, denies any abdominal pain diarrhea, complaining of chills. Related Data Home Medications Medication Instructions Recorded Confirmed albuterol sulfate 90 mcg/actuation 0 mcg inhalation 03/20/22 05/15/22 aerosol inhaler (ProAir HFA) aripiprazole 15 mg tablet 15 mg PO DAILY 03/20/22 05/15/22 diazepam 5 mg tablet 5 mg PO BID PRN 03/20/22 05/15/22 gabapentin 400 mg capsule 400 mg PO TID 03/20/22 05/15/22 lidocaine 4 % topical cream g topical 03/20/22 05/15/22 nifedipine 30 mg tablet,extended 30 mg PO DAILY 03/20/22 05/15/22 release nifedipine 30 mg tablet,extended 30 mg PO DAILY 03/20/22 release 24 hr omeprazole 20 mg capsule,delayed 20 mg PO BID 03/20/22 05/15/22 release ondansetron 4 mg disintegrating 2 mg PO Q6-8H PRN 03/20/22 05/15/22 tablet pantoprazole 40 mg tablet,delayed 40 mg PO BID 03/20/22 05/15/22 release promethazine 12.5 mg tablet 12.5 mg PO Q6-8H 03/20/22 sucralfate 1 gram tablet 1 g PO QID 03/20/22 tamsulosin 0.4 mg capsule 0.4 mg PO DAILY 03/20/22 aluminum-mag hydroxide-simethicone 20 ml PO QID PRN 05/15/22 05/15/22 400 mg-400 mg-40 mg/5 mL oral susp (Mintox Maximum Strength) Previous Rx's Medication Instructions Recorded metoclopramide HCl 10 mg tablet 10 mg PO Q6H PRN nausea and 02/18/21 (Reglan) vomiting #7 tabs valacyclovir 1 gram tablet 1,000 mg PO Q12H 10 days #20 tabs 02/24/21 dicyclomine 20 mg tablet 20 mg PO QID PRN abdominal pain 07/29/22 #12 tabs ondansetron 4 mg disintegrating 4 mg PO Q6-8H PRN nausea and 07/29/22 tablet vomiting #7 tabs prochlorperazine maleate 5 mg 5 mg PO BID PRN nausea and 08/20/22 tablet (Compazine) vomiting #10 tabs Allergies Allergy/AdvReac Type Severity Reaction Status Date / Time amoxicillin Allergy Vomiting Verified 07/29/22 15:02 lamotrigine [From Lamictal] Allergy Hives Verified 07/29/22 15:02 levetiracetam [From Keppra] Allergy Hives Verified 07/29/22 15:02 Review of Systems Review of Systems: Constitutional : No Weight loss, No Fever, complaining of Chills, No Night Sweats, complaining of fatigue ENT/Mouth : No Hearing loss, No Ear Pain, No Nasal Congestion, No Sinus Pain, No Hoarseness, No sore throat, No Rhinorrhea, No Swallowing Difficulty Eyes: No Eye Pain, No Swelling, No Redness, No Foreign Body, No Discharge, No Vision Changes Cardiovascular : No Chest Pain, No SOB, No Dyspnea on Exertion, No Orthopnea, No Edema, No Palpitations Respiratory : No Cough, No Sputum, No Wheezing, No Smoke Exposure, No Dyspnea Gastrointestinal : Complaining of nausea and vomiting, No Diarrhea, No Constipation, No abdominal Pain, No Hematochezia, No Melena Genitourinary : no irregular bleeding, No Dysuria, No Urinary Frequency, No Hematuria, No Urinary Incontinence, No Urgency, No Flank Pain, No Urinary Flow Changes, No Hesitancy Musculoskeletal : No joint pain, No Myalgias, No Joint Swelling Skin : No Skin Lesions, No rash Neuro : No Weakness, No Numbness, No Paresthesias, No Loss of Consciousness, No Dizziness, No Headache Psych : No Anxiety/Panic, No Depression, No SI/HI/AH/VH, No Social Issues, Heme/Lymph: No Bruising, No Bleeding,No Lymphadenopathy Endocrine : No Polyuria, No Polydipsia, No Temperature Intolerance [facility] Past Medical History Medical History Back pain Bipolar 1 disorder Neck pain PTSD (post-traumatic stress disorder) Seizure Seizure disorder Sleep disorder TBI (traumatic brain injury) Surgical History Hx of hernia repair Family History Family History Mother Cancer Family/Other No problems noted. Social History Social History Alcohol intake: former Patient Tobacco Use Status: Former Tobacco user Smoked in Last 30 Days: Yes Use of substances other than those prescribed or required for medical reasons: No Advance Directives: No Physical Exam ED Vital Signs: Vital Signs - 24 hr 08/20/22 01:27 Temperature 97.9 F Pulse Rate 70 Respiratory Rate 16 Blood Pressure 126/92 H Pulse Oximetry 96 Oxygen Delivery Method Room Air BMI result Body Mass Index 26.5 Const Other: Appearance: Alert. Oriented X3. No acute distress. Well-appearing Eyes: Pupils equal, round and reactive to light. ENT: Pharynx normal. Neck: Normal inspection. Neck supple. No lymph nodes noted. No crepitus CVS: Normal heart rate and rhythm. Pulses normal. Normal S1 and S2 Respiratory: No respiratory distress. Breath sounds normal. No Wheezing. No rales Abdomen: Soft and nontender. No rigidity. No distention. Skin: Skin warm and dry. Normal skin color. Normal skin turgor. Extremities: No lower extremity edema. No Lacerations. No Rash Neuro: Oriented X 3. No motor deficit. No sensory deficit. Moving all extremities. No slurred speech. CN 2 through 12 grossly intact Psych: calm, cooperative, normal affect Course Course Course Narrative: -patient's hematology and chemistry did not show any significant acute abnormality -patient tested negative for COVID and influenza -patient receiving IV fluids and Compazine. Patient states that earlier today at home he tried Zofran -patient having a viral syndrome Medical Decision Making Differential Diagnosis Differential Diagnoses: The differential diagnosis associated with the presentation includes (COVID, influenza, viral illness, gastroenteritis) Lab Data MDM Lab Attestation statement: I reviewed the patient's lab results. 08/20/22 01:41 08/20/22 01:41 Labs: Lab Results 08/20/22 08/20/22 08/20/22 Range/Units 01:41 01:41 01:41 WBC 6.2 (4.8-10.8) X10*3/uL RBC 5.21 (4.60-5.80) X10*6/uL Hgb 14.8 (14.0-18.0) g/dl Hct 43.0 (42.0-52.0) % MCV 82.5 (80.0-98.0) fL MCH 28.4 (27.0-33.0) pg MCHC 34.4 (31.0-36.0) g/dl RDW 12.7 (11.0-16.0) % Plt Count 254 (160-400) X10*3/uL MPV 9.8 (9.4-12.4) fL Immature Gran % (Auto) 0.3 (0.0-0.4) % Neut % (Auto) 50.2 (45-73) % Lymph % (Auto) 34.4 (20-40) % [place] % (Auto) 9.8 (2-11) % Eos % (Auto) 4.2 H (0-4) % Baso % (Auto) 1.1 (0-2) % Lymph # (Auto) 2.1 (1.2-4.9) X10*3/uL [place] # (Auto) 0.6 (0.1-1.2) X10*3/uL Eos # (Auto) 0.3 (0.0-0.4) X10*3/uL Baso # (Auto) 0.1 (0.0-0.2) X10*3/uL Abs Immat Gran (auto) 0.02 (0.00-0.03) X10*3/uL Absolute Neuts (auto) 3.1 (2.0-8.3) x10*3/uL Absolute Nucleated RBC 0.000 (0.0-0.012) X10*3/uL Nucleated RBC % (auto) 0.0 (0.0-0.2) /100WBC Sodium (135-145) mmol/L Potassium (3.3-5.1) mmol/L Chloride (96-108) mmol/L Carbon Dioxide (22-29) mmol/L Anion Gap (12-20) BUN (9-16) mg/dL Creatinine (0.5-1.4) mg/dL Estim Creat Clear Calc Estimated GFR Random Glucose (60-115) mg/dL Calcium (8.4-10.2) mg/dL COVID-19 ([facility]) Negative (Negative) COVID-19 Clin Com See Note Influenza Type A ([facility]) Negative (Negative) Influenza Type B ([facility]UEL) Negative (Negative) Influenza A & B Note See Note 08/20/22 Range/Units 01:41 WBC (4.8-10.8) X10*3/uL RBC (4.60-5.80) X10*6/uL Hgb (14.0-18.0) g/dl Hct (42.0-52.0) % MCV (80.0-98.0) fL MCH (27.0-33.0) pg MCHC (31.0-36.0) g/dl RDW (11.0-16.0) % Plt Count (160-400) X10*3/uL MPV (9.4-12.4) fL Immature Gran % (Auto) (0.0-0.4) % Neut % (Auto) (45-73) % Lymph % (Auto) (20-40) % [place] % (Auto) (2-11) % Eos % (Auto) (0-4) % Baso % (Auto) (0-2) % Lymph # (Auto) (1.2-4.9) X10*3/uL [place] # (Auto) (0.1-1.2) X10*3/uL Eos # (Auto) (0.0-0.4) X10*3/uL Baso # (Auto) (0.0-0.2) X10*3/uL Abs Immat Gran (auto) (0.00-0.03) X10*3/uL Absolute Neuts (auto) (2.0-8.3) x10*3/uL Absolute Nucleated RBC (0.0-0.012) X10*3/uL Nucleated RBC % (auto) (0.0-0.2) /100WBC Sodium 138 (135-145) mmol/L Potassium 3.7 (3.3-5.1) mmol/L Chloride 107 (96-108) mmol/L Carbon Dioxide 22 (22-29) mmol/L Anion Gap 13 (12-20) BUN 22 H (9-16) mg/dL Creatinine 0.79 (0.5-1.4) mg/dL Estim Creat Clear Calc 105.0 Estimated GFR > 60 Random Glucose 105 (60-115) mg/dL Calcium 8.8 (8.4-10.2) mg/dL COVID-19 ([facility]) (Negative) COVID-19 Clin Com Influenza Type A ([facility] MANUEL) (Negative) Influenza Type B ([facility]UEL) (Negative) Influenza A & B Note Discharge Plan Discharge Clinical Impression: Acute viral syndrome Patient Disposition: Home, Self-Care Instructions: Acute Nausea and Vomiting (ED) Additional Instructions: Please follow-up with your primary care physician tomorrow. If you have any worsening or new symptoms, please return to the emergency room or call 911 Prescriptions: New prochlorperazine maleate [Compazine] 5 mg tablet 5 mg PO BID PRN (Reason: nausea and vomiting) Qty: 10 0RF No Action valacyclovir 1 gram tablet 1,000 mg PO Q12H 10 Days Qty: 20 0RF metoclopramide HCl [Reglan] 10 mg tablet 10 mg PO Q6H PRN (Reason: nausea and vomiting) Qty: 7 0RF dicyclomine 20 mg tablet 20 mg PO QID PRN (Reason: abdominal pain) Qty: 12 0RF ondansetron 4 mg tablet,disintegrating 4 mg PO Q6-8H PRN (Reason: nausea and vomiting) Qty: 7 0RF ondansetron 4 mg tablet,disintegrating 2 mg PO Q6-8H PRN promethazine 12.5 mg tablet 12.5 mg PO Q6-8H pantoprazole 40 mg tablet,delayed release (DR/EC) 40 mg PO BID sucralfate 1 gram tablet 1 g PO QID albuterol sulfate [ProAir HFA] 90 mcg/actuation HFA aerosol inhaler 0 mcg inhalation nifedipine 30 mg tablet extended release 30 mg PO DAILY aripiprazole 15 mg tablet 15 mg PO DAILY nifedipine 30 mg tablet extended release 24hr 30 mg PO DAILY gabapentin 400 mg capsule 400 mg PO TID omeprazole 20 mg capsule,delayed release(DR/EC) 20 mg PO BID tamsulosin 0.4 mg capsule 0.4 mg PO DAILY lidocaine 4 % cream topical diazepam 5 mg tablet 5 mg PO BID PRN alum-mag hydroxide-simeth [Mintox Maximum Strength] 400-400-40 mg/5 mL suspension 20 ml PO QID PRN
[2022-08-20] MEDS: Prochlorperazine Edisylate 10 MG/2 ML VIAL IVPUSH (02:33)
[2022-08-20] MEDS: 0.9 % Sodium Chloride 1,000 ML 999 ML IVCONT (02:34)
== END 2022-08-20 03:55 | disposition home or self-care (01) ==
PROVIDERS: Emergency Provider Emergency Medicine
DX: B34.9 Viral infection, unspecified (principal); R11.10 Vomiting, unspecified; Z20.822 Contact with and (suspected) exposure to COVID-19; Z20.828 Contact with and (suspected) exposure to other viral communicable diseases; Z79.899 Other long term (current) drug therapy
CPT/HCPCS: 36415; 80048; 85025; 87502; 87635; 96361; 96374; 99284

== ENCOUNTER 2022-08-25 17:25 | Emergency (ER) | payer OTHER, SELFPAY ==
[2022-08-25 17:32] VITALS: BP 140/100; PULSE 84; O2SAT 97
[2022-08-25 17:40] VITALS: BP 134/85; PULSE 83; TEMP 36.8; O2SAT 96
[2022-08-25 17:44] VITALS: BMI 26.5
[2022-08-25] MEDS: 0.9 % Sodium Chloride 1,000 ML 999 ML IV ×3 (17:52→21:17)
--- NOTE | 2022-08-25 17:53 | ED_ITS ---
HPI - General Adult General Chief complaint: General Medical Stated complaint: leg cramping Time Seen by Provider: 08/25/22 17:30 Source: patient and EMS Mode of arrival: EMS Limitations: no limitations History of Present Illness HPI narrative: This is a 36-year-old male past medical history significant for TBI, partial seizures, atrial fibrillation, bipolar, PTSD, sleep disorder, restless legs syndrome presenting to the emergency department with pain to bilateral lower extremities for the past 2 years, patient also reporting that his lower extremities feel much more sore than usual, he tells me he has been walking a lot. He tells me he has intermittent numbness to his lower extremities as well. He tells me his PCP is aware of this and it is just not going away so he wanted to be evaluated. Patient has been here for this issue and has also been to [facility] for the same issue. Not on blood thinners. Patient denies weakness to lower extremities. Denies tingling, chest pain, shortness of breath, headache, vision changes, dizziness, weakness, headache, back pain, urinary/bowel incontinence/retention, saddle paresthesias. No history of DVT or PE Related Data Home Medications Medication Instructions Recorded Confirmed albuterol sulfate 90 mcg/actuation 0 mcg inhalation 03/20/22 05/15/22 aerosol inhaler (ProAir HFA) aripiprazole 15 mg tablet 15 mg PO DAILY 03/20/22 05/15/22 diazepam 5 mg tablet 5 mg PO BID PRN 03/20/22 05/15/22 gabapentin 400 mg capsule 400 mg PO TID 03/20/22 05/15/22 lidocaine 4 % topical cream g topical 03/20/22 05/15/22 nifedipine 30 mg tablet,extended 30 mg PO DAILY 03/20/22 05/15/22 release nifedipine 30 mg tablet,extended 30 mg PO DAILY 03/20/22 release 24 hr omeprazole 20 mg capsule,delayed 20 mg PO BID 03/20/22 05/15/22 release ondansetron 4 mg disintegrating 2 mg PO Q6-8H PRN 03/20/22 05/15/22 tablet pantoprazole 40 mg tablet,delayed 40 mg PO BID 03/20/22 05/15/22 release promethazine 12.5 mg tablet 12.5 mg PO Q6-8H 03/20/22 sucralfate 1 gram tablet 1 g PO QID 03/20/22 tamsulosin 0.4 mg capsule 0.4 mg PO DAILY 03/20/22 aluminum-mag hydroxide-simethicone 20 ml PO QID PRN 05/15/22 05/15/22 400 mg-400 mg-40 mg/5 mL oral susp (Mintox Maximum Strength) Previous Rx's Medication Instructions Recorded metoclopramide HCl 10 mg tablet 10 mg PO Q6H PRN nausea and 02/18/21 (Reglan) vomiting #7 tabs valacyclovir 1 gram tablet 1,000 mg PO Q12H 10 days #20 tabs 02/24/21 dicyclomine 20 mg tablet 20 mg PO QID PRN abdominal pain 07/29/22 #12 tabs ondansetron 4 mg disintegrating 4 mg PO Q6-8H PRN nausea and 07/29/22 tablet vomiting #7 tabs prochlorperazine maleate 5 mg 5 mg PO BID PRN nausea and 08/20/22 tablet (Compazine) vomiting #10 tabs Allergies Allergy/AdvReac Type Severity Reaction Status Date / Time amoxicillin Allergy Vomiting Verified 08/25/22 17:34 lamotrigine [From Lamictal] Allergy Hives Verified 08/25/22 17:34 levetiracetam [From Keppra] Allergy Hives Verified 08/25/22 17:34 Review of Systems Review of Systems: Constitutional : No Weight loss, No Fever, No Chills, No Fatigue, No Malaise ENT/Mouth : No sore throat, No Rhinorrhea Eyes: No Eye Pain, No Swelling, No Redness Cardiovascular : No Chest Pain, No SOB, No Dyspnea on Exertion, No Orthopnea, No Edema, No Palpitations Respiratory : No Cough, No Sputum, No Wheezing Gastrointestinal : No Nausea, No Vomiting, No Diarrhea, No Constipation, No abdominal Pain, No Hematochezia, No Melena Genitourinary : No Dysuria, No Urinary Frequency, No Hematuria, Musculoskeletal : + joint pain, No Myalgias, No Joint Swelling Skin : No Skin Lesions, No rash Neuro : No Weakness, No Numbness, No Dizziness, No Headache Psych : No Anxiety/Panic, No Depression All other systems reviewed and are negative Yes all other systems are reviewed and are negative [facility] Past Medical History Attestation statement: The following information was validated with the patient. Source: old records reviewed and nursing notes reviewed Medical History Back pain Bipolar 1 disorder Neck pain PTSD (post-traumatic stress disorder) Seizure Seizure disorder Sleep disorder TBI (traumatic brain injury) Surgical History Hx of hernia repair Family History Family History Mother Cancer Family/Other No problems noted. Social History Social History Alcohol intake: former Patient Tobacco Use Status: Former Tobacco user Advance Directives: No Advance Directives Information Provided: No Physical Exam ED Vital Signs: Vital Signs - 24 hr 08/25/22 17:40 08/25/22 19:26 Temperature 98.2 F 98 F Pulse Rate 83 70 Respiratory Rate 16 Blood Pressure 134/85 115/79 Pulse Oximetry 96 96 Oxygen Delivery Method Room Air Room Air BMI result Body Mass Index 26.5 Vital signs stable Appearance: Alert.? Oriented X3.? No acute distress.? Head: Normocephalic, atraumatic, no step-offs or deformities Eyes: Pupils equal, round and reactive to light.? ENT: Pharynx normal.? Neck: Normal inspection.? Neck supple.? CVS: Normal heart rate and rhythm.? Pulses normal.? Respiratory: No respiratory distress.? Breath sounds normal.? Abdomen: Soft and nontender.? Skin: Skin warm and dry.? Normal skin color.? Normal skin turgor.? Extremities: No lower extremity edema.? No calf ttp. 5/5 strength to bilateral upper and lower extremities Back: No midline tenderness, no C-spine tenderness, full range of motion, no CVA tenderness bilaterally Neuro: Oriented X 3.? No motor deficit.? No sensory deficit. CN 2-12 intact . No saddle paresthesia. 2+ patellar reflexes equal bilateral. Patient ambulating with steady gait normal coordination. Course Reevaluation(s) Reevaluation #1: CBC appears to be around patient's baseline with a normocytic anemia. Chemistry with no acute electrolyte abnormalities requiring intervention. No signs of RONN. Patient's total creatinine kinase elevated 911 consistent with patient's story of increased exercise, repeat CPK was ordered 733 down trending after fluids. Patient eating and drinking well. Urinating per usual. UA without infection, no protein urea. Patient tells me he is feeling better. Nursing staff walked around the department with patient, he was able to ambulate without assistance with a steady gait normal coordination. At this time will be discharged home. Educated patient on diagnosis and treatment plan, answered all question, patient verbalizes understanding. At this time patient will be discharged home, advised to return with new or worsening symptoms. Educated on worrisome signs and symptoms and when to return. At this time I feel comfortable discharge home. Time: 23:15 Medications Administered Discontinued Medications Generic Name Dose Route Start Last Admin Trade Name Corbinq PRN Reason Stop Dose Admin Gabapentin 400 mg 08/25/22 17:58 08/25/22 18:20 Gabapentin 400 Mg Capsule PO 08/25/22 17:59 400 mg ONCE ONE Administration Sodium Chloride 1,000 mls @ 999 mls/hr 08/25/22 17:45 08/25/22 19:55 Ns IV 08/25/22 18:45 Infused .Q1H1M THALIA Infusion Sodium Chloride 1,000 mls @ 999 mls/hr 08/25/22 18:45 08/25/22 21:16 Ns IV 08/25/22 19:45 999 mls/hr .Q1H1M THALIA Administration Sodium Chloride 1,000 mls @ 999 mls/hr 08/25/22 18:45 08/25/22 21:17 Ns IV 08/25/22 19:45 999 mls/hr .Q1H1M THALIA Administration Medical Decision Making Medical Decision Making [facility] Narrative: 1756 36-year-old male presents with pain and numbness to lower extremities x2 years worsening over the past few days. Also reporting that his legs feel sore, has been walking more than usual. Physical examination benign. Neuro nonfocal. Normal sensation to bilateral lower extremities. Normal pulses to lower extremities. Negative Ad. Likely chronic leg pain or restless leg syndrome. Will rule out rhabdomyolysis and electrolyte abnormalities. Unlikely cauda equina, CVA, arterial or venous occlusion, no signs of cord compression, Guillain-Newcastle Labs, ambulatory trial Differential Diagnosis Differential Diagnoses: The differential diagnosis associated with the presentation includes Likely chronic leg pain or restless leg syndrome. Will rule out rhabdomyolysis and electrolyte abnormalities. Unlikely cauda equina, CVA, arterial or venous occlusion, no signs of cord compression, Guillain-[place]castle Admission/Observation Consideration of admission/observation: Escalation of care including admission/observation considered Lab Data MDM Lab Attestation statement: I reviewed the patient's lab results. 08/25/22 17:51 08/25/22 17:51 Labs: Lab Results 08/25/22 08/25/22 08/25/22 Range/Units 17:51 17:51 17:55 WBC 6.2 (4.8-10.8) X10*3/uL RBC 4.66 (4.60-5.80) X10*6/uL Hgb 13.2 L (14.0-18.0) g/dl Hct 39.0 L (42.0-52.0) % MCV 83.7 (80.0-98.0) fL MCH 28.3 (27.0-33.0) pg MCHC 33.8 (31.0-36.0) g/dl RDW 12.7 (11.0-16.0) % Plt Count 250 (160-400) X10*3/uL MPV 9.8 (9.4-12.4) fL Immature Gran % (Auto) 0.2 (0.0-0.4) % Neut % (Auto) 43.1 L (45-73) % Lymph % (Auto) 42.9 H (20-40) % [place] % (Auto) 8.6 (2-11) % Eos % (Auto) 4.4 H (0-4) % Baso % (Auto) 0.8 (0-2) % Lymph # (Auto) 2.7 (1.2-4.9) X10*3/uL [place] # (Auto) 0.5 (0.1-1.2) X10*3/uL Eos # (Auto) 0.3 (0.0-0.4) X10*3/uL Baso # (Auto) 0.1 (0.0-0.2) X10*3/uL Abs Immat Gran (auto) 0.01 (0.00-0.03) X10*3/uL Absolute Neuts (auto) 2.7 (2.0-8.3) x10*3/uL Absolute Nucleated RBC 0.000 (0.0-0.012) X10*3/uL Nucleated RBC % (auto) 0.0 (0.0-0.2) /100WBC D-Dimer High Sensitivty < 150 NG/ML Sodium 144 (135-145) mmol/L Potassium 3.5 (3.3-5.1) mmol/L Chloride 109 H (96-108) mmol/L Carbon Dioxide 25 (22-29) mmol/L Anion Gap 14 (12-20) BUN 17 H (9-16) mg/dL Creatinine 0.75 (0.5-1.4) mg/dL Estim Creat Clear Calc 110.6 Estimated GFR > 60 Random Glucose 121 H (60-115) mg/dL Calcium 8.7 (8.4-10.2) mg/dL Magnesium 1.8 (1.6-2.6) mg/dL Total Bilirubin 0.2 (0.0-1.0) mg/dL AST 48 H (5-37) U/L ALT 47 H (0-40) U/L Alkaline Phosphatase 100 (39-117) U/L Total Creatine Kinase 911 H (38-174) U/L Total Protein 6.5 (6.5-8.0) g/dL Albumin 3.9 (3.5-5.0) g/dL Urine Color Urine Appearance Urine pH (5.0-9.0) Ur Specific [place] (1.005-1.025) Urine Protein (Neg-Trace) mg/dL Urine Glucose (UA) (Negative) mg/dL Urine Ketones (Negative) mg/dL Urine Blood (Negative) Urine Nitrite (Negative) Ur Leukocyte Esterase (Negative) 08/25/22 08/25/22 Range/Units 21:26 22:57 WBC (4.8-10.8) X10*3/uL RBC (4.60-5.80) X10*6/uL Hgb (14.0-18.0) g/dl Hct (42.0-52.0) % MCV (80.0-98.0) fL MCH (27.0-33.0) pg MCHC (31.0-36.0) g/dl RDW (11.0-16.0) % Plt Count (160-400) X10*3/uL MPV (9.4-12.4) fL Immature Gran % (Auto) (0.0-0.4) % Neut % (Auto) (45-73) % Lymph % (Auto) (20-40) % [place] % (Auto) (2-11) % Eos % (Auto) (0-4) % Baso % (Auto) (0-2) % Lymph # (Auto) (1.2-4.9) X10*3/uL [place] # (Auto) (0.1-1.2) X10*3/uL Eos # (Auto) (0.0-0.4) X10*3/uL Baso # (Auto) (0.0-0.2) X10*3/uL Abs Immat Gran (auto) (0.00-0.03) X10*3/uL Absolute Neuts (auto) (2.0-8.3) x10*3/uL Absolute Nucleated RBC (0.0-0.012) X10*3/uL Nucleated RBC % (auto) (0.0-0.2) /100WBC D-Dimer High Sensitivty NG/ML Sodium (135-145) mmol/L Potassium (3.3-5.1) mmol/L Chloride (96-108) mmol/L Carbon Dioxide (22-29) mmol/L Anion Gap (12-20) BUN (9-16) mg/dL Creatinine (0.5-1.4) mg/dL Estim Creat Clear Calc Estimated GFR Random Glucose (60-115) mg/dL Calcium (8.4-10.2) mg/dL Magnesium (1.6-2.6) mg/dL Total Bilirubin (0.0-1.0) mg/dL AST (5-37) U/L ALT (0-40) U/L Alkaline Phosphatase (39-117) U/L Total Creatine Kinase 733 H (38-174) U/L Total Protein (6.5-8.0) g/dL Albumin (3.5-5.0) g/dL Urine Color Yellow Urine Appearance Clear Urine pH 7.5 (5.0-9.0) Ur Specific [place] 1.010 (1.005-1.025) Urine Protein Negative (Neg-Trace) mg/dL Urine Glucose (UA) Negative (Negative) mg/dL Urine Ketones Negative (Negative) mg/dL Urine Blood Negative (Negative) Urine Nitrite Negative (Negative) Ur Leukocyte Esterase Negative (Negative) Radiology Impression Discussion of test interpretation with radiology: I have reviewed the radiologist's reading. Critical Care Time Critical Care Time Critical Care Time: No Discharge Plan Discharge Clinical Impression: Chronic leg pain, Rhabdomyolysis Patient Disposition: Home, Self-Care Instructions: Pain Management (ED) Additional Instructions: Take your medications as prescribed. If you were prescribed antibiotics today, it is important that you take your medication to their entirety, do not skip any doses, do not finish them early. Follow-up with your primary care provider this week. Return to the emergency department with new or worsening symptoms. Such as fevers, chills, chest pain, shortness of breath, nausea, vomiting, dizziness, headache, vision changes, lethargy In case of emergency call 911 Drink plenty of fluids , please follow-up with her primary care provider and have your CPK levels repeated to ensure that they have normalized. You should see them within the next 1-3 days. I would call tomorrow to make an appointment. Prescriptions: No Action valacyclovir 1 gram tablet 1,000 mg PO Q12H 10 Days Qty: 20 0RF metoclopramide HCl [Reglan] 10 mg tablet 10 mg PO Q6H PRN (Reason: nausea and vomiting) Qty: 7 0RF prochlorperazine maleate [Compazine] 5 mg tablet 5 mg PO BID PRN (Reason: nausea and vomiting) Qty: 10 0RF dicyclomine 20 mg tablet 20 mg PO QID PRN (Reason: abdominal pain) Qty: 12 0RF ondansetron 4 mg tablet,disintegrating 4 mg PO Q6-8H PRN (Reason: nausea and vomiting) Qty: 7 0RF ondansetron 4 mg tablet,disintegrating 2 mg PO Q6-8H PRN promethazine 12.5 mg tablet 12.5 mg PO Q6-8H pantoprazole 40 mg tablet,delayed release (DR/EC) 40 mg PO BID sucralfate 1 gram tablet 1 g PO QID albuterol sulfate [ProAir HFA] 90 mcg/actuation HFA aerosol inhaler 0 mcg inhalation nifedipine 30 mg tablet extended release 30 mg PO DAILY aripiprazole 15 mg tablet 15 mg PO DAILY nifedipine 30 mg tablet extended release 24hr 30 mg PO DAILY gabapentin 400 mg capsule 400 mg PO TID omeprazole 20 mg capsule,delayed release(DR/EC) 20 mg PO BID tamsulosin 0.4 mg capsule 0.4 mg PO DAILY lidocaine 4 % cream topical diazepam 5 mg tablet 5 mg PO BID PRN alum-mag hydroxide-simeth [Mintox Maximum Strength] 400-400-40 mg/5 mL suspension 20 ml PO QID PRN Referrals: ED Physician,Generic [Physician] - 2 days Physician,None [Primary Care Provider] - 2 days Stand Alone Forms: Work/School Release
[2022-08-25 17:56] LABS: Basophils Absolute Auto 0.1 X10*3/uL (0.0-0.2); Basophils Percent Auto 0.8 % (0-2); Eosinophils Absolute Auto 0.3 X10*3/uL (0.0-0.4); Eosinophils Percent Auto 4.4 % (0-4); Hemoglobin 13.2 g/dl (14.0-18.0); Imm Gran Abs Auto 0.01 X10*3/uL (0.00-0.03); Imm Gran Pct Auto 0.2 % (0.0-0.4); Lymphocytes Absolute Auto 2.7 X10*3/uL (1.2-4.9); Lymphocytes Percent Auto 42.9 % (20-40); MANUAL DIFF FLAG NO; Mean Corpuscular HGB Conc 33.8 g/dl (31.0-36.0); Mean Corpuscular Hemoglobin 28.3 pg (27.0-33.0); Mean Corpuscular Volume 83.7 fL (80.0-98.0); Mean Platelet Volume 9.8 fL (9.4-12.4); Monocytes Absolute Auto 0.5 X10*3/uL (0.1-1.2); Monocytes Percent Auto 8.6 % (2-11); Neutrophils Absolute Auto 2.7 x10*3/uL (2.0-8.3); Neutrophils Percent Auto 43.1 % (45-73); Platelet Count 250 X10*3/uL (160-400); Red Blood Count 4.66 X10*6/uL (4.60-5.80); Red Cell Distribution Width 12.7 % (11.0-16.0); White Blood Count 6.2 X10*3/uL (4.8-10.8)
[2022-08-25 18:10] LABS: Alanine Aminotransferase 47 U/L (0-40); Albumin Level 3.9 g/dL (3.5-5.0); Alkaline Phosphatase 100 U/L (39-117); Anion Gap 14 (12-20); Aspartate Amino Transferase 48 U/L (5-37); Bilirubin Total 0.2 mg/dL (0.0-1.0); Blood Urea Nitrogen 17 mg/dL (9-16); Calcium 8.7 mg/dL (8.4-10.2); Carbon Dioxide 25 mmol/L (22-29); Chloride 109 mmol/L (96-108); Creatinine Clr Calc Pharmacy 110.6; Estimated Glomerular Filt Rate > 60; Glucose Random 121 mg/dL (60-115); Magnesium 1.8 mg/dL (1.6-2.6); Potassium 3.5 mmol/L (3.3-5.1); Sodium 144 mmol/L (135-145); Total Protein 6.5 g/dL (6.5-8.0)
[2022-08-25 18:16] LABS: D Dimer High Sensitivity < 150 NG/ML
[2022-08-25] MEDS: Gabapentin 400 MG CAPSULE PO (18:20)
[2022-08-25 19:26] VITALS: BP 115/79; PULSE 70; RESP 16; TEMP 36.6; O2SAT 96
[2022-08-25 23:03] LABS: Appearance Urine Clear; Color Urine Yellow; Glucose Urine UA Negative (Negative); Leukocyte Esterase Urine Negative (Negative); Nitrite Urine Negative (Negative); PH 7.5 (5.0-9.0); Urine Blood Negative (Negative); Urine Ketones Negative (Negative); Urine Protein Negative (Neg-Trace)
== END 2022-08-25 23:41 | disposition home or self-care (01) ==
PROVIDERS: Physician Assistant; Emergency Provider Internal Medicine
DX: M62.82 Rhabdomyolysis (principal); I48.91 Unspecified atrial fibrillation; R60.0 Localized edema; Z79.899 Other long term (current) drug therapy
CPT/HCPCS: 36415; 80053; 81003; 82550; 83735; 85025; 85379; 96360; 96361; 99284

== ENCOUNTER 2022-08-29 22:07 | Emergency (ER) | payer OTHER, SELFPAY ==
--- NOTE | 2022-08-29 | ECG_ITS ---
Test Reason : WEAKNESS Blood Pressure : / mmHG Vent. Rate : 079 BPM Atrial Rate : 079 BPM P-R Int : 164 ms QRS Dur : 090 ms QT Int : 376 ms P-R-T Axes : 029 005 014 degrees QTc Int : 431 ms Normal sinus rhythm Minimal voltage criteria for LVH, may be normal variant ( R in aVL ) Borderline ECG No previous ECGs available Referred By: Gilbert Hansen Electronically Signed By:TAWANDA SALGUERO
[2022-08-29 22:18] VITALS: BP 121/84; BP 150/90; PULSE 77; PULSE 97; RESP 16; TEMP 36.6; O2SAT 94; O2SAT 97; BMI 26.5
[2022-08-29 22:24] VITALS: BP 121/84; PULSE 77; RESP 16; TEMP 36.6; O2SAT 97
--- NOTE | 2022-08-29 22:24 | ED_ITS ---
HPI - Weakness General Chief complaint: Weakness Stated complaint: Leg Weakness/A-Fib Time Seen by Provider: 08/29/22 22:18 Source: patient Mode of arrival: EMS Limitations: no limitations History of Present Illness HPI Narrative: Patient's history of restless leg syndrome, TBI, bipolar disorder. polyneuropathy investigated in you are few years ago for chronic pain in the legs with tingling sensations on gabapentin and aripiprazole comes by EMS for increased pain while walking. Patient has this before no recent trauma patient followed by PCP patient being here multiple times this month with same problems workup showed elevated CPK 900 range likely has patient been walking a lot and exercising patient was advised to decreased walking and exercising last time patient was seen in the ER was 08/25/2022 Related Data Home Medications Medication Instructions Recorded Confirmed albuterol sulfate 90 mcg/actuation 0 mcg inhalation 03/20/22 05/15/22 aerosol inhaler (ProAir HFA) aripiprazole 15 mg tablet 15 mg PO DAILY 03/20/22 05/15/22 diazepam 5 mg tablet 5 mg PO BID PRN 03/20/22 05/15/22 gabapentin 400 mg capsule 400 mg PO TID 03/20/22 05/15/22 lidocaine 4 % topical cream g topical 03/20/22 05/15/22 nifedipine 30 mg tablet,extended 30 mg PO DAILY 03/20/22 05/15/22 release nifedipine 30 mg tablet,extended 30 mg PO DAILY 03/20/22 release 24 hr omeprazole 20 mg capsule,delayed 20 mg PO BID 03/20/22 05/15/22 release ondansetron 4 mg disintegrating 2 mg PO Q6-8H PRN 03/20/22 05/15/22 tablet pantoprazole 40 mg tablet,delayed 40 mg PO BID 03/20/22 05/15/22 release promethazine 12.5 mg tablet 12.5 mg PO Q6-8H 03/20/22 sucralfate 1 gram tablet 1 g PO QID 03/20/22 tamsulosin 0.4 mg capsule 0.4 mg PO DAILY 03/20/22 aluminum-mag hydroxide-simethicone 20 ml PO QID PRN 05/15/22 05/15/22 400 mg-400 mg-40 mg/5 mL oral susp (Mintox Maximum Strength) Previous Rx's Medication Instructions Recorded metoclopramide HCl 10 mg tablet 10 mg PO Q6H PRN nausea and 02/18/21 (Reglan) vomiting #7 tabs valacyclovir 1 gram tablet 1,000 mg PO Q12H 10 days #20 tabs 02/24/21 dicyclomine 20 mg tablet 20 mg PO QID PRN abdominal pain 07/29/22 #12 tabs ondansetron 4 mg disintegrating 4 mg PO Q6-8H PRN nausea and 07/29/22 tablet vomiting #7 tabs prochlorperazine maleate 5 mg 5 mg PO BID PRN nausea and 08/20/22 tablet (Compazine) vomiting #10 tabs Allergies Allergy/AdvReac Type Severity Reaction Status Date / Time amoxicillin Allergy Vomiting Verified 08/25/22 17:34 lamotrigine [From Lamictal] Allergy Hives Verified 08/25/22 17:34 levetiracetam [From Keppra] Allergy Hives Verified 08/25/22 17:34 Review of Systems Review of Systems: Yes all other systems are reviewed and are negative PMFSH Past Medical History Medical History Back pain Bipolar 1 disorder Neck pain PTSD (post-traumatic stress disorder) Seizure Seizure disorder Sleep disorder TBI (traumatic brain injury) Surgical History Hx of hernia repair Family History Family History Mother Cancer Family/Other No problems noted. Social History Social History Alcohol intake: never Patient Tobacco Use Status: Former Tobacco user Smoked in Last 30 Days: No Use of substances other than those prescribed or required for medical reasons: No Advance Directives: No Advance Directives Information Provided: No Physical Exam Vital Signs: Vital Signs: Last Vital Signs Temp 98.3 F 08/30/22 01:40 Pulse 79 08/30/22 01:40 Resp 15 08/30/22 01:40 BP 119/79 08/30/22 01:40 Pulse Ox 96 08/30/22 01:40 O2 Del Method 08/30/22 01:40 BMI result Body Mass Index 26.5 Appearance: Alert. Oriented X3. No acute distress. Eyes: PERRLA, No Nystagmus ENT: Pharynx normal. Oral Mucosa moist Neck: Normal inspection. Neck supple. CVS: Normal heart rate and rhythm. Pulses normal. Respiratory: No respiratory distress. Equal air entry bilateral, no wheezing/rales/rhonchi Abdomen: Soft and nontender. Bowel sounds are present, no mass palpable, no CVA tenderness Skin: Skin warm and dry. Normal skin color. Normal skin turgor. Extremities: No lower extremity edema. No calf tenderness Neuro: Oriented X 3. No motor deficit. No sensory deficit.No cerebellar signs , cranial nerves II-XII intact Medications Administered Discontinued Medications Generic Name Dose Route Start Last Admin Trade Name Freq PRN Reason Stop Dose Admin Sodium Chloride 1,000 mls @ 999 mls/hr 08/29/22 22:53 08/30/22 01:12 Ns IV 08/29/22 23:53 Infused .Q1H1M ONE Infusion Sodium Chloride 1,000 mls @ 999 mls/hr 08/29/22 22:56 08/30/22 01:12 Ns IV 08/29/22 23:56 Infused .Q1H1M ONE Infusion Medical Decision Making Medical Decision Making [facility] Narrative: Patient with atraumatic rhabdomyolysis as the cause for his leg pain been here multiple times advised to stop walking too much and drink plenty of fluids Lab Data [facility] Lab Attestation statement: I reviewed the patient's lab results. 08/29/22 22:24 08/29/22 22:24 Labs: Lab Results 08/29/22 08/29/22 08/30/22 Range/Units 22:24 22:24 01:42 WBC 7.4 (4.8-10.8) X10*3/uL RBC 4.84 (4.60-5.80) X10*6/uL Hgb 14.0 (14.0-18.0) g/dl Hct 40.1 L (42.0-52.0) % MCV 82.9 (80.0-98.0) fL MCH 28.9 (27.0-33.0) pg MCHC 34.9 (31.0-36.0) g/dl RDW 12.7 (11.0-16.0) % Plt Count 291 (160-400) X10*3/uL MPV 9.8 (9.4-12.4) fL Immature Gran % (Auto) 0.3 (0.0-0.4) % Neut % (Auto) 47.8 (45-73) % Lymph % (Auto) 38.1 (20-40) % [place] % (Auto) 7.9 (2-11) % Eos % (Auto) 4.7 H (0-4) % Baso % (Auto) 1.2 (0-2) % Lymph # (Auto) 2.8 (1.2-4.9) X10*3/uL [place] # (Auto) 0.6 (0.1-1.2) X10*3/uL Eos # (Auto) 0.4 (0.0-0.4) X10*3/uL Baso # (Auto) 0.1 (0.0-0.2) X10*3/uL Abs Immat Gran (auto) 0.02 (0.00-0.03) X10*3/uL Absolute Neuts (auto) 3.5 (2.0-8.3) x10*3/uL Absolute Nucleated RBC 0.000 (0.0-0.012) X10*3/uL Nucleated RBC % (auto) 0.0 (0.0-0.2) /100WBC Sodium 140 (135-145) mmol/L Potassium 3.4 (3.3-5.1) mmol/L Chloride 107 (96-108) mmol/L Carbon Dioxide 24 (22-29) mmol/L Anion Gap 12 (12-20) BUN 23 H (9-16) mg/dL Creatinine 0.76 (0.5-1.4) mg/dL Estim Creat Clear Calc 109.1 Estimated GFR > 60 Random Glucose 118 H (60-115) mg/dL Calcium 8.9 (8.4-10.2) mg/dL Total Bilirubin 0.3 (0.0-1.0) mg/dL AST 58 H (5-37) U/L ALT 53 H (0-40) U/L Alkaline Phosphatase 97 (39-117) U/L Total Creatine Kinase 1102 H (38-174) U/L Total Protein 7.3 (6.5-8.0) g/dL Albumin 4.0 (3.5-5.0) g/dL Urine Color Yellow Urine Appearance Clear Urine pH 7.0 (5.0-9.0) Ur Specific [place] 1.020 (1.005-1.025) Urine Protein Negative (Neg-Trace) mg/dL Urine Glucose (UA) Negative (Negative) mg/dL Urine Ketones Negative (Negative) mg/dL Urine Blood Negative (Negative) Urine Nitrite Negative (Negative) Ur Leukocyte Esterase Negative (Negative) Discharge Plan Discharge Clinical Impression: Exertional rhabdomyolysis Patient Disposition: Home, Self-Care Instructions: Rhabdomyolysis (ED) Additional Instructions: Stop walking too much do to not exercise rest your leg muscles Drink plenty of fluids Follow-up with PCP if any concern Prescriptions: No Action valacyclovir 1 gram tablet 1,000 mg PO Q12H 10 Days Qty: 20 0RF metoclopramide HCl [Reglan] 10 mg tablet 10 mg PO Q6H PRN (Reason: nausea and vomiting) Qty: 7 0RF prochlorperazine maleate [Compazine] 5 mg tablet 5 mg PO BID PRN (Reason: nausea and vomiting) Qty: 10 0RF dicyclomine 20 mg tablet 20 mg PO QID PRN (Reason: abdominal pain) Qty: 12 0RF ondansetron 4 mg tablet,disintegrating 4 mg PO Q6-8H PRN (Reason: nausea and vomiting) Qty: 7 0RF ondansetron 4 mg tablet,disintegrating 2 mg PO Q6-8H PRN promethazine 12.5 mg tablet 12.5 mg PO Q6-8H pantoprazole 40 mg tablet,delayed release (DR/EC) 40 mg PO BID sucralfate 1 gram tablet 1 g PO QID albuterol sulfate [ProAir HFA] 90 mcg/actuation HFA aerosol inhaler 0 mcg inhalation nifedipine 30 mg tablet extended release 30 mg PO DAILY aripiprazole 15 mg tablet 15 mg PO DAILY nifedipine 30 mg tablet extended release 24hr 30 mg PO DAILY gabapentin 400 mg capsule 400 mg PO TID omeprazole 20 mg capsule,delayed release(DR/EC) 20 mg PO BID tamsulosin 0.4 mg capsule 0.4 mg PO DAILY lidocaine 4 % cream topical diazepam 5 mg tablet 5 mg PO BID PRN alum-mag hydroxide-simeth [Mintox Maximum Strength] 400-400-40 mg/5 mL suspension 20 ml PO QID PRN Interventions: ED Discharge Assessment Last Done: 08/30/22 02:33 Discharge Date/Time: 08/30/22 02:34
[2022-08-29 22:28] LABS: MANUAL DIFF FLAG NO
[2022-08-29 22:31] LABS: Basophils Absolute Auto 0.1 X10*3/uL (0.0-0.2); Basophils Percent Auto 1.2 % (0-2); Eosinophils Absolute Auto 0.4 X10*3/uL (0.0-0.4); Eosinophils Percent Auto 4.7 % (0-4); Hematocrit 40.1 % (42.0-52.0); Imm Gran Abs Auto 0.02 X10*3/uL (0.00-0.03); Imm Gran Pct Auto 0.3 % (0.0-0.4); Lymphocytes Absolute Auto 2.8 X10*3/uL (1.2-4.9); Lymphocytes Percent Auto 38.1 % (20-40); Mean Corpuscular HGB Conc 34.9 g/dl (31.0-36.0); Mean Corpuscular Hemoglobin 28.9 pg (27.0-33.0); Mean Corpuscular Volume 82.9 fL (80.0-98.0); Mean Platelet Volume 9.8 fL (9.4-12.4); Monocytes Absolute Auto 0.6 X10*3/uL (0.1-1.2); Monocytes Percent Auto 7.9 % (2-11); Neutrophils Absolute Auto 3.5 x10*3/uL (2.0-8.3); Neutrophils Percent Auto 47.8 % (45-73); Platelet Count 291 X10*3/uL (160-400); Red Blood Count 4.84 X10*6/uL (4.60-5.80); Red Cell Distribution Width 12.7 % (11.0-16.0); White Blood Count 7.4 X10*3/uL (4.8-10.8)
[2022-08-29 22:54] LABS: Alanine Aminotransferase 53 U/L (0-40); Alkaline Phosphatase 97 U/L (39-117); Anion Gap 12 (12-20); Aspartate Amino Transferase 58 U/L (5-37); Bilirubin Total 0.3 mg/dL (0.0-1.0); Blood Urea Nitrogen 23 mg/dL (9-16); Calcium 8.9 mg/dL (8.4-10.2); Carbon Dioxide 24 mmol/L (22-29); Chloride 107 mmol/L (96-108); Creatinine Clr Calc Pharmacy 109.1; Estimated Glomerular Filt Rate > 60; Glucose Random 118 mg/dL (60-115); Potassium 3.4 mmol/L (3.3-5.1); Sodium 140 mmol/L (135-145); Total Protein 7.3 g/dL (6.5-8.0)
[2022-08-29] MEDS: 0.9 % Sodium Chloride 1,000 ML 999 ML IV ×2 (23:13)
[2022-08-30 00:04] VITALS: BP 127/90; PULSE 94; RESP 19; TEMP 36.6; O2SAT 98
[2022-08-30 01:40] VITALS: BP 119/79; PULSE 79; RESP 15; TEMP 36.8; O2SAT 96
--- NOTE | 2022-08-30 01:44 | MHC.EDTECH ---
Pt walked to the bathroom with a steady gait. Collected urine sample.
[2022-08-30 01:53] LABS: Appearance Urine Clear; Color Urine Yellow; Glucose Urine UA Negative (Negative); Leukocyte Esterase Urine Negative (Negative); Nitrite Urine Negative (Negative); Urine Blood Negative (Negative); Urine Ketones Negative (Negative); Urine Protein Negative (Neg-Trace)
== END 2022-08-30 02:34 | disposition home or self-care (01) ==
PROVIDERS: Emergency Provider Internal Medicine
DX: R53.1 Weakness (principal); M62.82 Rhabdomyolysis; I48.91 Unspecified atrial fibrillation; Z87.891 Personal history of nicotine dependence; Z79.899 Other long term (current) drug therapy
CPT/HCPCS: 36415; 80053; 81003; 82550; 85025; 93005; 96360; 96361; 99284; 99285

== ENCOUNTER 2022-09-01 20:34 | Emergency (ER) | payer OTHER, SELFPAY ==
[2022-09-01 21:32] VITALS: BP 118/92; PULSE 78; O2SAT 98; BMI 26.8
--- NOTE | 2022-09-01 21:32 | PC.NURSE ---
pt states he believes he had multiple snmall seizures and woke up confused; pt wants to ensure he is ok a&o pt watching tv while resting quietly, no apparent distress no post ictal symptoms observed
--- NOTE | 2022-09-01 21:36 | ED.SEIZURE ---
HPI - Seizure General Stated Complaint: ? OF A SEIZURE EARLIER AND WANTS TO BE EVALUATED Time Seen by Provider: 09/01/22 20:46 Source: patient Mode of arrival: EMS Limitations: no limitations History of Present Illness HPI Narrative: History of PTSD, bipolar, TBI, seizure disorder on Neurontin 400 mg 3 times a day patient have any seizures for more than 8 months last week had mild seizure and today had 4 small seizure lasting for few minutes witnessed by his no fever no chills no head injury no fall patient will confuse after the seizure and feels sleepy patient was seen here 08/29 had the labs done which was stable Seizure History: Yes Related Data Home Medications Medication Instructions Recorded Confirmed albuterol sulfate 90 mcg/actuation 0 mcg inhalation 03/20/22 05/15/22 aerosol inhaler (ProAir HFA) aripiprazole 15 mg tablet 15 mg PO DAILY 03/20/22 05/15/22 diazepam 5 mg tablet 5 mg PO BID PRN 03/20/22 05/15/22 gabapentin 400 mg capsule 400 mg PO TID 03/20/22 05/15/22 lidocaine 4 % topical cream g topical 03/20/22 05/15/22 nifedipine 30 mg tablet,extended 30 mg PO DAILY 03/20/22 05/15/22 release nifedipine 30 mg tablet,extended 30 mg PO DAILY 03/20/22 release 24 hr omeprazole 20 mg capsule,delayed 20 mg PO BID 03/20/22 05/15/22 release ondansetron 4 mg disintegrating 2 mg PO Q6-8H PRN 03/20/22 05/15/22 tablet pantoprazole 40 mg tablet,delayed 40 mg PO BID 03/20/22 05/15/22 release promethazine 12.5 mg tablet 12.5 mg PO Q6-8H 03/20/22 sucralfate 1 gram tablet 1 g PO QID 03/20/22 tamsulosin 0.4 mg capsule 0.4 mg PO DAILY 03/20/22 aluminum-mag hydroxide-simethicone 20 ml PO QID PRN 05/15/22 05/15/22 400 mg-400 mg-40 mg/5 mL oral susp (Mintox Maximum Strength) Previous Rx's Medication Instructions Recorded metoclopramide HCl 10 mg tablet 10 mg PO Q6H PRN nausea and 02/18/21 (Reglan) vomiting #7 tabs valacyclovir 1 gram tablet 1,000 mg PO Q12H 10 days #20 tabs 02/24/21 dicyclomine 20 mg tablet 20 mg PO QID PRN abdominal pain 07/29/22 #12 tabs ondansetron 4 mg disintegrating 4 mg PO Q6-8H PRN nausea and 07/29/22 tablet vomiting #7 tabs prochlorperazine maleate 5 mg 5 mg PO BID PRN nausea and 08/20/22 tablet (Compazine) vomiting #10 tabs gabapentin 100 mg capsule 200 mg PO TID #180 caps 09/01/22 Allergies Allergy/AdvReac Type Severity Reaction Status Date / Time amoxicillin Allergy Vomiting Verified 08/25/22 17:34 lamotrigine [From Lamictal] Allergy Hives Verified 08/25/22 17:34 levetiracetam [From Keppra] Allergy Hives Verified 08/25/22 17:34 Review of Systems Review of Systems: Yes all other systems are reviewed and are negative [facility] Past Medical History Medical History Back pain Bipolar 1 disorder Neck pain PTSD (post-traumatic stress disorder) Seizure Seizure disorder Sleep disorder TBI (traumatic brain injury) Surgical History Hx of hernia repair Family History Family History Mother Cancer Family/Other No problems noted. Social History Social History Alcohol intake: never Patient Tobacco Use Status: Former Tobacco user Advance Directives: No Advance Directives Information Provided: Yes Physical Exam Vital Signs: Appearance: Alert. Oriented X3. No acute distress. Eyes: PERRLA, No Nystagmus ENT: Pharynx normal. Oral Mucosa moist no tongue bite Neck: Normal inspection. Neck supple. CVS: Normal heart rate and rhythm. Pulses normal. Respiratory: No respiratory distress. Equal air entry bilateral, no wheezing/rales/rhonchi Abdomen: Soft and nontender. Bowel sounds are present, no mass palpable, no CVA tenderness Skin: Skin warm and dry. Normal skin color. Normal skin turgor. Extremities: No lower extremity edema. No calf tenderness Neuro: Oriented X 3. No motor deficit. No sensory deficit.No cerebellar signs , cranial nerves II-XII intact Medical Decision Making Medical Decision Making MDM Narrative: Patient with longstanding history of seizure disorder were stable on 40 mg 3 times a day since last week having recurrent seizures will increase the dose of gabapentin to 600 mg 3 times a day advised to follow up with neurologist patient had the stable labs on 08/29 Discharge Plan Discharge Clinical Impression: Seizure disorder Patient Disposition: Home, Self-Care Instructions: Recurrent Seizures in Adults (ED) Additional Instructions: Increase the dose of gabapentin to 600 mg 3 times a day and follow-up with neurologist Prescriptions: New gabapentin 100 mg capsule 200 mg PO TID Qty: 180 0RF No Action valacyclovir 1 gram tablet 1,000 mg PO Q12H 10 Days Qty: 20 0RF metoclopramide HCl [Reglan] 10 mg tablet 10 mg PO Q6H PRN (Reason: nausea and vomiting) Qty: 7 0RF prochlorperazine maleate [Compazine] 5 mg tablet 5 mg PO BID PRN (Reason: nausea and vomiting) Qty: 10 0RF dicyclomine 20 mg tablet 20 mg PO QID PRN (Reason: abdominal pain) Qty: 12 0RF ondansetron 4 mg tablet,disintegrating 4 mg PO Q6-8H PRN (Reason: nausea and vomiting) Qty: 7 0RF ondansetron 4 mg tablet,disintegrating 2 mg PO Q6-8H PRN promethazine 12.5 mg tablet 12.5 mg PO Q6-8H pantoprazole 40 mg tablet,delayed release (DR/EC) 40 mg PO BID sucralfate 1 gram tablet 1 g PO QID albuterol sulfate [ProAir HFA] 90 mcg/actuation HFA aerosol inhaler 0 mcg inhalation nifedipine 30 mg tablet extended release 30 mg PO DAILY aripiprazole 15 mg tablet 15 mg PO DAILY nifedipine 30 mg tablet extended release 24hr 30 mg PO DAILY gabapentin 400 mg capsule 400 mg PO TID omeprazole 20 mg capsule,delayed release(DR/EC) 20 mg PO BID tamsulosin 0.4 mg capsule 0.4 mg PO DAILY lidocaine 4 % cream topical diazepam 5 mg tablet 5 mg PO BID PRN alum-mag hydroxide-simeth [Mintox Maximum Strength] 400-400-40 mg/5 mL suspension 20 ml PO QID PRN
[2022-09-01] MEDS: Gabapentin 600 MG TABLET PO (22:05)
[2022-09-01 22:33] VITALS: BP 117/90; PULSE 82; RESP 20; TEMP 37.1; O2SAT 99
--- NOTE | 2022-09-01 22:42 | PC.NURSE ---
discharge instructions given and explained, ambulates safely/independently, no apparent distress, no post ictal sxs, all of patient's questions answered
== END 2022-09-01 22:27 | disposition home or self-care (01) ==
PROVIDERS: Emergency Provider Internal Medicine
DX: R56.9 Unspecified convulsions (principal); Z79.899 Other long term (current) drug therapy
CPT/HCPCS: 99284

== ENCOUNTER 2022-09-10 22:26 | Emergency (ER) | payer OTHER, SELFPAY ==
[2022-09-10 22:31] VITALS: BP 151/97; PULSE 82; RESP 22; TEMP 36.6; O2SAT 97
[2022-09-10 22:35] VITALS: BP 160/84; PULSE 74; O2SAT 98; BMI 30.1
--- NOTE | 2022-09-10 22:53 | ED.SEIZURE ---
HPI - Seizure General Chief Complaint: Seizure Stated Complaint: Seizure Time Seen by Provider: 09/10/22 22:29 Source: patient Mode of arrival: EMS Limitations: no limitations History of Present Illness HPI Narrative: Patient's history of tonic clonic seizures , TBI, PTSD, bipolar disorder, on gabapentin 600 mg 3 times a day did not have any seizure for approximately 8 months but had last seizure on 09/01 in the dose of gabapentin was increased to 600 mg 3 times a day from 400 mg 3 times a day today patient had 2 unwitnessed seizures at home patient was in bed and felt seizures coming. No injury no fall no tongue bite or little confused when EMS arrived complaining of mild headache which she does get all the time after seizure Seizure History: Yes (last yr was last occurrence) Related Data Home Medications Medication Instructions Recorded Confirmed albuterol sulfate 90 mcg/actuation 0 mcg inhalation 03/20/22 05/15/22 aerosol inhaler (ProAir HFA) aripiprazole 15 mg tablet 15 mg PO DAILY 03/20/22 05/15/22 diazepam 5 mg tablet 5 mg PO BID PRN 03/20/22 05/15/22 gabapentin 400 mg capsule 400 mg PO TID 03/20/22 05/15/22 lidocaine 4 % topical cream g topical 03/20/22 05/15/22 nifedipine 30 mg tablet,extended 30 mg PO DAILY 03/20/22 05/15/22 release nifedipine 30 mg tablet,extended 30 mg PO DAILY 03/20/22 release 24 hr omeprazole 20 mg capsule,delayed 20 mg PO BID 03/20/22 05/15/22 release ondansetron 4 mg disintegrating 2 mg PO Q6-8H PRN 03/20/22 05/15/22 tablet pantoprazole 40 mg tablet,delayed 40 mg PO BID 03/20/22 05/15/22 release promethazine 12.5 mg tablet 12.5 mg PO Q6-8H 03/20/22 sucralfate 1 gram tablet 1 g PO QID 03/20/22 tamsulosin 0.4 mg capsule 0.4 mg PO DAILY 03/20/22 aluminum-mag hydroxide-simethicone 20 ml PO QID PRN 05/15/22 05/15/22 400 mg-400 mg-40 mg/5 mL oral susp (Mintox Maximum Strength) Previous Rx's Medication Instructions Recorded metoclopramide HCl 10 mg tablet 10 mg PO Q6H PRN nausea and 02/18/21 (Reglan) vomiting #7 tabs valacyclovir 1 gram tablet 1,000 mg PO Q12H 10 days #20 tabs 02/24/21 dicyclomine 20 mg tablet 20 mg PO QID PRN abdominal pain 07/29/22 #12 tabs ondansetron 4 mg disintegrating 4 mg PO Q6-8H PRN nausea and 07/29/22 tablet vomiting #7 tabs prochlorperazine maleate 5 mg 5 mg PO BID PRN nausea and 08/20/22 tablet (Compazine) vomiting #10 tabs gabapentin 100 mg capsule 200 mg PO TID #180 caps 09/01/22 Allergies Allergy/AdvReac Type Severity Reaction Status Date / Time amoxicillin Allergy Vomiting Verified 08/25/22 17:34 lamotrigine [From Lamictal] Allergy Hives Verified 08/25/22 17:34 levetiracetam [From Keppra] Allergy Hives Verified 08/25/22 17:34 Review of Systems Review of Systems: Yes all other systems are reviewed and are negative [facility] Past Medical History Medical History Back pain Bipolar 1 disorder Neck pain PTSD (post-traumatic stress disorder) Seizure Seizure disorder Sleep disorder TBI (traumatic brain injury) Surgical History Hx of hernia repair Family History Family History Mother Cancer Family/Other No problems noted. Social History Social History Alcohol intake: never Patient Tobacco Use Status: Former Tobacco user Advance Directives: No Advance Directives Information Provided: No Physical Exam Vital Signs: Vital Signs: Last Vital Signs Temp 97.9 F 09/11/22 01:56 Pulse 76 09/11/22 01:56 Resp 19 09/11/22 01:56 BP 127/91 H 09/11/22 01:56 Pulse Ox 96 09/11/22 01:56 O2 Del Method 09/11/22 01:56 BMI result Body Mass Index 30.1 Appearance: Alert. Oriented X3. No acute distress. Eyes: PERRLA, No Nystagmus ENT: Pharynx normal. Oral Mucosa moist no tongue bite Neck: Normal inspection. Neck supple. CVS: Normal heart rate and rhythm. Pulses normal. Respiratory: No respiratory distress. Equal air entry bilateral, no wheezing/rales/rhonchi Abdomen: Soft and nontender. Bowel sounds are present, no mass palpable, no CVA tenderness Skin: Skin warm and dry. Normal skin color. Normal skin turgor. Extremities: No lower extremity edema. No calf tenderness Neuro: Oriented X 3. No motor deficit. No sensory deficit.No cerebellar signs , cranial nerves II-XII intact Medications Administered Discontinued Medications Generic Name Dose Route Start Last Admin Trade Name Freq PRN Reason Stop Dose Admin Diazepam 5 mg 09/10/22 22:58 09/10/22 23:04 Diazepam 2 Mg Tablet PO 09/10/22 22:59 5 mg ONCE ONE Administration Sodium Chloride 1,000 mls @ 999 mls/hr 09/10/22 22:59 09/11/22 00:17 Ns IV 09/10/22 23:59 Infused .Q1H1M ONE Infusion Sodium Chloride 1,000 mls @ 999 mls/hr 09/10/22 23:42 09/11/22 00:17 Ns IV 09/11/22 00:42 Infused .Q1H1M ONE Infusion Medical Decision Making Medical Decision Making [facility] Narrative: Patient with recurrent seizures on gabapentin which was increased recently also has rhabdomyolysis which is going on for a while with urine negative for RBCs etiology is not very clear likely from the seizure and patient walks a lot. Patient received 2 L of IV fluid CPK improved from 1826 >>1386 patient denies any leg pain any muscle pain Lab Data [facility] Lab Attestation statement: I reviewed the patient's lab results. 09/10/22 23:08 09/10/22 23:08 Labs: Lab Results 09/10/22 09/10/22 09/11/22 Range/Units 23:08 23:08 01:52 WBC 6.7 (4.8-10.8) X10*3/uL RBC 5.12 (4.60-5.80) X10*6/uL Hgb 14.4 (14.0-18.0) g/dl Hct 42.2 (42.0-52.0) % MCV 82.4 (80.0-98.0) fL MCH 28.1 (27.0-33.0) pg MCHC 34.1 (31.0-36.0) g/dl RDW 12.9 (11.0-16.0) % Plt Count 281 (160-400) X10*3/uL MPV 9.4 (9.4-12.4) fL Immature Gran % (Auto) 0.1 (0.0-0.4) % Neut % (Auto) 46.1 (45-73) % Lymph % (Auto) 38.7 (20-40) % [place] % (Auto) 9.5 (2-11) % Eos % (Auto) 4.6 H (0-4) % Baso % (Auto) 1.0 (0-2) % Lymph # (Auto) 2.6 (1.2-4.9) X10*3/uL [place] # (Auto) 0.6 (0.1-1.2) X10*3/uL Eos # (Auto) 0.3 (0.0-0.4) X10*3/uL Baso # (Auto) 0.1 (0.0-0.2) X10*3/uL Abs Immat Gran (auto) 0.01 (0.00-0.03) X10*3/uL Absolute Neuts (auto) 3.1 (2.0-8.3) x10*3/uL Absolute Nucleated RBC 0.000 (0.0-0.012) X10*3/uL Nucleated RBC % (auto) 0.0 (0.0-0.2) /100WBC Sodium 139 (135-145) mmol/L Potassium 3.5 (3.3-5.1) mmol/L Chloride 104 (96-108) mmol/L Carbon Dioxide 24 (22-29) mmol/L Anion Gap 15 (12-20) BUN 18 H (9-16) mg/dL Creatinine 0.80 (0.5-1.4) mg/dL Estim Creat Clear Calc 118.4 Estimated GFR > 60 POC Glucose 106 (60-115) mg/dL Random Glucose 104 (60-115) mg/dL Calcium 9.5 D (8.4-10.2) mg/dL Total Bilirubin 0.4 (0.0-1.0) mg/dL AST 83 H (5-37) U/L ALT 69 H (0-40) U/L Alkaline Phosphatase 100 (39-117) U/L Total Creatine Kinase 1826 H (38-174) U/L Total Protein 6.7 (6.5-8.0) g/dL Albumin 4.1 (3.5-5.0) g/dL Urine Color Urine Appearance Urine pH (5.0-9.0) Ur Specific [place] (1.005-1.025) Urine Protein (Neg-Trace) mg/dL Urine Glucose (UA) (Negative) mg/dL Urine Ketones (Negative) mg/dL Urine Blood (Negative) Urine Nitrite (Negative) Ur Leukocyte Esterase (Negative) 09/11/22 09/11/22 Range/Units 02:00 02:00 WBC (4.8-10.8) X10*3/uL RBC (4.60-5.80) X10*6/uL Hgb (14.0-18.0) g/dl Hct (42.0-52.0) % MCV (80.0-98.0) fL MCH (27.0-33.0) pg MCHC (31.0-36.0) g/dl RDW (11.0-16.0) % Plt Count (160-400) X10*3/uL MPV (9.4-12.4) fL Immature Gran % (Auto) (0.0-0.4) % Neut % (Auto) (45-73) % Lymph % (Auto) (20-40) % [place] % (Auto) (2-11) % Eos % (Auto) (0-4) % Baso % (Auto) (0-2) % Lymph # (Auto) (1.2-4.9) X10*3/uL [place] # (Auto) (0.1-1.2) X10*3/uL Eos # (Auto) (0.0-0.4) X10*3/uL Baso # (Auto) (0.0-0.2) X10*3/uL Abs Immat Gran (auto) (0.00-0.03) X10*3/uL Absolute Neuts (auto) (2.0-8.3) x10*3/uL Absolute Nucleated RBC (0.0-0.012) X10*3/uL Nucleated RBC % (auto) (0.0-0.2) /100WBC Sodium (135-145) mmol/L Potassium (3.3-5.1) mmol/L Chloride (96-108) mmol/L Carbon Dioxide (22-29) mmol/L Anion Gap (12-20) BUN (9-16) mg/dL Creatinine (0.5-1.4) mg/dL Estim Creat Clear Calc Estimated GFR POC Glucose (60-115) mg/dL Random Glucose (60-115) mg/dL Calcium (8.4-10.2) mg/dL Total Bilirubin (0.0-1.0) mg/dL AST (5-37) U/L ALT (0-40) U/L Alkaline Phosphatase (39-117) U/L Total Creatine Kinase 1386 H (38-174) U/L Total Protein (6.5-8.0) g/dL Albumin (3.5-5.0) g/dL Urine Color Yellow Urine Appearance Clear Urine pH 7.0 (5.0-9.0) Ur Specific [place] 1.010 (1.005-1.025) Urine Protein Negative (Neg-Trace) mg/dL Urine Glucose (UA) Negative (Negative) mg/dL Urine Ketones Negative (Negative) mg/dL Urine Blood Negative (Negative) Urine Nitrite Negative (Negative) Ur Leukocyte Esterase Negative (Negative) Discharge Plan Discharge Clinical Impression: Seizure disorder, Rhabdomyolysis Patient Disposition: Home, Self-Care Instructions: Rhabdomyolysis (ED), Epilepsy (ED) Additional Instructions: Drink plenty of fluids Continue medications and follow up with neurologist today Prescriptions: No Action valacyclovir 1 gram tablet 1,000 mg PO Q12H 10 Days Qty: 20 0RF metoclopramide HCl [Reglan] 10 mg tablet 10 mg PO Q6H PRN (Reason: nausea and vomiting) Qty: 7 0RF prochlorperazine maleate [Compazine] 5 mg tablet 5 mg PO BID PRN (Reason: nausea and vomiting) Qty: 10 0RF dicyclomine 20 mg tablet 20 mg PO QID PRN (Reason: abdominal pain) Qty: 12 0RF ondansetron 4 mg tablet,disintegrating 4 mg PO Q6-8H PRN (Reason: nausea and vomiting) Qty: 7 0RF gabapentin 100 mg capsule 200 mg PO TID Qty: 180 0RF ondansetron 4 mg tablet,disintegrating 2 mg PO Q6-8H PRN promethazine 12.5 mg tablet 12.5 mg PO Q6-8H pantoprazole 40 mg tablet,delayed release (DR/EC) 40 mg PO BID sucralfate 1 gram tablet 1 g PO QID albuterol sulfate [ProAir HFA] 90 mcg/actuation HFA aerosol inhaler 0 mcg inhalation nifedipine 30 mg tablet extended release 30 mg PO DAILY aripiprazole 15 mg tablet 15 mg PO DAILY nifedipine 30 mg tablet extended release 24hr 30 mg PO DAILY gabapentin 400 mg capsule 400 mg PO TID omeprazole 20 mg capsule,delayed release(DR/EC) 20 mg PO BID tamsulosin 0.4 mg capsule 0.4 mg PO DAILY lidocaine 4 % cream topical diazepam 5 mg tablet 5 mg PO BID PRN alum-mag hydroxide-simeth [Mintox Maximum Strength] 400-400-40 mg/5 mL suspension 20 ml PO QID PRN Interventions: ED Discharge Assessment Last Done: 09/11/22 04:13 Discharge Date/Time: 09/11/22 04:14
[2022-09-10] MEDS: diazePAM 2 MG TABLET 5 MG PO (23:04)
[2022-09-10] MEDS: 0.9 % Sodium Chloride 1,000 ML 999 ML IV ×2 (23:13→23:53)
[2022-09-10 23:14] LABS: MANUAL DIFF FLAG NO
[2022-09-10 23:15] LABS: Basophils Absolute Auto 0.1 X10*3/uL (0.0-0.2); Eosinophils Absolute Auto 0.3 X10*3/uL (0.0-0.4); Eosinophils Percent Auto 4.6 % (0-4); Hematocrit 42.2 % (42.0-52.0); Hemoglobin 14.4 g/dl (14.0-18.0); Imm Gran Abs Auto 0.01 X10*3/uL (0.00-0.03); Imm Gran Pct Auto 0.1 % (0.0-0.4); Lymphocytes Absolute Auto 2.6 X10*3/uL (1.2-4.9); Lymphocytes Percent Auto 38.7 % (20-40); Mean Corpuscular HGB Conc 34.1 g/dl (31.0-36.0); Mean Corpuscular Hemoglobin 28.1 pg (27.0-33.0); Mean Corpuscular Volume 82.4 fL (80.0-98.0); Mean Platelet Volume 9.4 fL (9.4-12.4); Monocytes Absolute Auto 0.6 X10*3/uL (0.1-1.2); Monocytes Percent Auto 9.5 % (2-11); Neutrophils Absolute Auto 3.1 x10*3/uL (2.0-8.3); Neutrophils Percent Auto 46.1 % (45-73); Platelet Count 281 X10*3/uL (160-400); Red Blood Count 5.12 X10*6/uL (4.60-5.80); Red Cell Distribution Width 12.9 % (11.0-16.0); White Blood Count 6.7 X10*3/uL (4.8-10.8)
[2022-09-10 23:18] VITALS: BP 127/80; PULSE 76; RESP 18; TEMP 36.6; O2SAT 97
[2022-09-10 23:41] LABS: Alanine Aminotransferase 69 U/L (0-40); Albumin Level 4.1 g/dL (3.5-5.0); Alkaline Phosphatase 100 U/L (39-117); Anion Gap 15 (12-20); Aspartate Amino Transferase 83 U/L (5-37); Bilirubin Total 0.4 mg/dL (0.0-1.0); Blood Urea Nitrogen 18 mg/dL (9-16); Calcium 9.5 mg/dL (8.4-10.2); Carbon Dioxide 24 mmol/L (22-29); Chloride 104 mmol/L (96-108); Creatinine Clr Calc Pharmacy 118.4; Estimated Glomerular Filt Rate > 60; Glucose Random 104 mg/dL (60-115); Potassium 3.5 mmol/L (3.3-5.1); Sodium 139 mmol/L (135-145); Total Protein 6.7 g/dL (6.5-8.0)
[2022-09-11 01:56] VITALS: BP 127/91; PULSE 76; RESP 19; TEMP 36.6; O2SAT 96
[2022-09-11 02:08] LABS: Appearance Urine Clear; Color Urine Yellow; Glucose Urine UA Negative (Negative); Leukocyte Esterase Urine Negative (Negative); Nitrite Urine Negative (Negative); Urine Blood Negative (Negative); Urine Ketones Negative (Negative); Urine Protein Negative (Neg-Trace)
[2022-09-11 04:18] LABS: Glucose, Whole Blood 106 mg/dL (60-115)
== END 2022-09-11 04:14 | disposition home or self-care (01) ==
PROVIDERS: Emergency Provider Internal Medicine
DX: G40.909 Epilepsy, unspecified, not intractable, without status epilepticus (principal); M62.82 Rhabdomyolysis; Z79.899 Other long term (current) drug therapy
CPT/HCPCS: 36415; 80053; 81003; 82550; 82947; 85025; 96360; 99284

== ENCOUNTER 2022-09-20 21:33 | Emergency (ER) | payer OTHER, SELFPAY ==
[2022-09-20 22:10] VITALS: BP 134/86; BP 160/110; PULSE 108; PULSE 98; RESP 16; TEMP 36.6; O2SAT 98; BMI 27.4
== END 2022-09-21 01:25 | disposition left against medical advice (07) ==
PROVIDERS: Emergency Provider Emergency Medicine
DX: K92.0 Hematemesis (principal)
CPT/HCPCS: 99281

== ENCOUNTER 2022-09-30 17:47 | Emergency (ER) | payer OTHER, SELFPAY ==
--- NOTE | ~2022-09-30 | XR_ITS ---
EXAMINATION: XR CHEST CLINICAL INFORMATION: Cough COMPARISON: None TECHNIQUE: 2 views of the chest were obtained. FINDINGS: No significant abnormality is noted involving the heart, lungs, mediastinum, bony thorax or soft tissues. XR/XR chest 2V IMPRESSION: Unremarkable examination.
--- NOTE | 2022-09-30 17:50 | ECG_ITS ---
Test Reason : CHEST PAIN Blood Pressure : / mmHG Vent. Rate : 087 BPM Atrial Rate : 087 BPM P-R Int : 140 ms QRS Dur : 082 ms QT Int : 366 ms P-R-T Axes : 004 -03 015 degrees QTc Int : 440 ms Normal sinus rhythm with sinus arrhythmia Minimal voltage criteria for LVH, may be normal variant ( R in aVL ) Borderline ECG When compared with ECG of 29-AUG-2022 22:19, No significant change was found Referred By: Generic ED Physician Electronically Signed By:ANSHU PATRICIO MD
[2022-09-30 17:53] VITALS: BP 134/83; BP 163/102; PULSE 121; PULSE 82; RESP 18; TEMP 36.6; O2SAT 98; BMI 28.3
--- NOTE | 2022-09-30 17:57 | ED_ITS ---
HPI - Chest Pain General Chief Complaint: Chest Pain <EUSEBIO Eduardo - Last Filed: 09/30/22 18:03> Stated Complaint: chest pain <EUSEBIO Eduardo - Last Filed: 09/30/22 18:03> Time Seen by Provider: 09/30/22 21:18 <EUSEBIO Eduardo - Last Filed: 09/30/22 18:03> Source: patient <Gilbert Hansen MD - Last Filed: 10/01/22 02:58> Mode of arrival: ambulatory <Gilbert Hansen MD - Last Filed: 10/01/22 02:58> Limitations: no limitations <Gilbert Hansen MD - Last Filed: 10/01/22 02:58> History of Present Illness HPI narrative: Patient is 86 years old with history of tonic-clonic seizures, TBI, PTSD, bipolar disorder remote history of AFib in the past comes notice having palpitation episode with chest pain at 04:00 earlier today lasted less than 5 minutes with pain in the left armpit and left side of the chest. No diaphoresis no shortness of breath patient been here 2 times in last 1 month for similar complaints. <Gilbert Hansen MD - Last Filed: 10/01/22 02:58> Related Data Home Medications: Home Medications Medication Instructions Recorded Confirmed albuterol sulfate 90 mcg/actuation 0 mcg inhalation 03/20/22 05/15/22 aerosol inhaler (ProAir HFA) aripiprazole 15 mg tablet 15 mg PO DAILY 03/20/22 05/15/22 diazepam 5 mg tablet 5 mg PO BID PRN 03/20/22 05/15/22 gabapentin 400 mg capsule 400 mg PO TID 03/20/22 05/15/22 lidocaine 4 % topical cream g topical 03/20/22 05/15/22 nifedipine 30 mg tablet,extended 30 mg PO DAILY 03/20/22 05/15/22 release nifedipine 30 mg tablet,extended 30 mg PO DAILY 03/20/22 release 24 hr omeprazole 20 mg capsule,delayed 20 mg PO BID 03/20/22 05/15/22 release ondansetron 4 mg disintegrating 2 mg PO Q6-8H PRN 03/20/22 05/15/22 tablet pantoprazole 40 mg tablet,delayed 40 mg PO BID 03/20/22 05/15/22 release promethazine 12.5 mg tablet 12.5 mg PO Q6-8H 03/20/22 sucralfate 1 gram tablet 1 g PO QID 03/20/22 tamsulosin 0.4 mg capsule 0.4 mg PO DAILY 03/20/22 aluminum-mag hydroxide-simethicone 20 ml PO QID PRN 05/15/22 05/15/22 400 mg-400 mg-40 mg/5 mL oral susp (Mintox Maximum Strength) Previous Rx's Medication Instructions Recorded metoclopramide HCl 10 mg tablet 10 mg PO Q6H PRN nausea and 02/18/21 (Reglan) vomiting #7 tabs valacyclovir 1 gram tablet 1,000 mg PO Q12H 10 days #20 tabs 02/24/21 dicyclomine 20 mg tablet 20 mg PO QID PRN abdominal pain 07/29/22 #12 tabs ondansetron 4 mg disintegrating 4 mg PO Q6-8H PRN nausea and 07/29/22 tablet vomiting #7 tabs prochlorperazine maleate 5 mg 5 mg PO BID PRN nausea and 08/20/22 tablet (Compazine) vomiting #10 tabs gabapentin 100 mg capsule 200 mg PO TID #180 caps 09/01/22 <EUSEBIO Eduardo - Last Filed: 09/30/22 18:03> Allergies/Adverse Reactions: Allergies Allergy/AdvReac Type Severity Reaction Status Date / Time amoxicillin Allergy Vomiting Verified 08/25/22 17:34 heparin Allergy Hives Verified 09/30/22 17:59 lamotrigine [From Lamictal] Allergy Hives Verified 08/25/22 17:34 levetiracetam [From Keppra] Allergy Hives Verified 08/25/22 17:34 <EUSEBIO Eduardo - Last Filed: 09/30/22 18:03> Review of Systems Review of Systems: Yes all other systems are reviewed and are negative <Gilbert Hansen MD - Last Filed: 10/01/22 02:58> [facility] Past Medical History Medical History: Medical History Back pain Bipolar 1 disorder Neck pain PTSD (post-traumatic stress disorder) Seizure Seizure disorder Sleep disorder TBI (traumatic brain injury) <EUSEBIO Eduardo - Last Filed: 09/30/22 18:03> Surgical History: Surgical History Hx of hernia repair <EUSEBIO Eduardo - Last Filed: 09/30/22 18:03> Family History Family History: Family History Mother Cancer Family/Other No problems noted. <EUSEBIO Eduardo - Last Filed: 09/30/22 18:03> Social History Social History: Social History Alcohol intake: never Patient Tobacco Use Status: Former Tobacco user Smoked in Last 30 Days: No Use of substances other than those prescribed or required for medical reasons: No Advance Directives: No Advance Directives Information Provided: Yes <EUSEBIO Eduardo - Last Filed: 09/30/22 18:03> Physical Exam Vital Signs: Vital Signs: Last Vital Signs Temp 97.5 F 09/30/22 23:20 Pulse 79 09/30/22 23:20 Resp 16 09/30/22 23:20 BP 104/65 09/30/22 23:20 Pulse Ox 98 09/30/22 23:20 O2 Del Method 09/30/22 23:20 BMI result Body Mass Index 28.3 <EUSEBIO Eduardo - Last Filed: 09/30/22 18:03> Vital Signs: Last Vital Signs Temp 97.5 F 09/30/22 23:20 Pulse 79 09/30/22 23:20 Resp 16 09/30/22 23:20 BP 104/65 09/30/22 23:20 Pulse Ox 98 09/30/22 23:20 O2 Del Method 09/30/22 23:20 BMI result Body Mass Index 28.3 <Gilbert Hansen MD - Last Filed: 10/01/22 02:58> Appearance: Alert. Oriented X3. No acute distress. Eyes: PERRLA, No Nystagmus ENT: Pharynx normal. Oral Mucosa moist Neck: Normal inspection. Neck supple. CVS: Normal heart rate and rhythm. Pulses normal. Respiratory: No respiratory distress. Equal air entry bilateral, no wheezing/rales/rhonchi Abdomen: Soft and nontender. Bowel sounds are present, no mass palpable, no CVA tenderness Skin: Skin warm and dry. Normal skin color. Normal skin turgor. Extremities: No lower extremity edema. No calf tenderness Neuro: Oriented X 3. No motor deficit. No sensory deficit.No cerebellar signs , cranial nerves II-XII intact <Gilbert Hansen MD - Last Filed: 10/01/22 02:58> Course Course Course Narrative: RME - 36 yo male, with a hx of tonic clonic seizures, TBI, PTSD, bipolar disorder, and reported history of a-fib, with acute left sided chest pain that started at 4am this morning, which resolved and returned. Pain radiated into left arm. Stable to return back to waiting room. Plan: Labs, EKG, chest x-ray ordered. <EUSEBIO Eduardo - Last Filed: 09/30/22 18:03> Medications Administered Discontinued Medications Generic Name Dose Route Start Last Admin Trade Name Freq PRN Reason Stop Dose Admin Sodium Chloride 1,000 mls @ 999 mls/hr 09/30/22 21:33 09/30/22 21:52 Ns IV 09/30/22 22:33 999 mls/hr .Q1H1M ONE Administration Ketorolac Tromethamine 30 mg 09/30/22 21:43 09/30/22 21:52 Ketorolac Tromethamine 30 Mg/Ml Vial IVPUSH 09/30/22 21:44 30 mg ONCE ONE Administration <EUSEBIO Eduardo - Last Filed: 09/30/22 18:03> Medications Administered Discontinued Medications Generic Name Dose Route Start Last Admin Trade Name Freq PRN Reason Stop Dose Admin Sodium Chloride 1,000 mls @ 999 mls/hr 09/30/22 21:33 09/30/22 21:52 Ns IV 09/30/22 22:33 999 mls/hr .Q1H1M ONE Administration Ketorolac Tromethamine 30 mg 09/30/22 21:43 09/30/22 21:52 Ketorolac Tromethamine 30 Mg/Ml Vial IVPUSH 09/30/22 21:44 30 mg ONCE ONE Administration <Gilbert Hansen MD - Last Filed: 10/01/22 02:58> Medical Decision Making Medical Decision Making [facility] Narrative: Patient has remote history of AFib no AFib noticed during his stay in the ER vitals are stable cardiac enzymes negative with no delta change patient chronically elevated CPK will discharge patient home and at this time patient denies any chest pain <Gilbert Hansen MD - Last Filed: 10/01/22 02:58> Lab Data [facility] Lab Attestation statement: I reviewed the patient's lab results. <Gilbert Hansen MD - Last Filed: 10/01/22 02:58> Result Diagrams: 09/30/22 18:53 09/30/22 18:53 <EUSEBIO Eduardo - Last Filed: 09/30/22 18:03> Labs: Lab Results 09/30/22 09/30/22 09/30/22 Range/Units 18:53 18:53 18:53 WBC 8.7 (4.8-10.8) X10*3/uL RBC 5.14 (4.60-5.80) X10*6/uL Hgb 14.5 (14.0-18.0) g/dl Hct 42.9 (42.0-52.0) % MCV 83.5 (80.0-98.0) fL MCH 28.2 (27.0-33.0) pg MCHC 33.8 (31.0-36.0) g/dl RDW 12.9 (11.0-16.0) % Plt Count 313 (160-400) X10*3/uL MPV 9.6 (9.4-12.4) fL Immature Gran % (Auto) 0.3 (0.0-0.4) % Neut % (Auto) 61.5 (45-73) % Lymph % (Auto) 26.4 (20-40) % [place] % (Auto) 7.9 (2-11) % Eos % (Auto) 3.0 (0-4) % Baso % (Auto) 0.9 (0-2) % Lymph # (Auto) 2.3 (1.2-4.9) X10*3/uL [place] # (Auto) 0.7 (0.1-1.2) X10*3/uL Eos # (Auto) 0.3 (0.0-0.4) X10*3/uL Baso # (Auto) 0.1 (0.0-0.2) X10*3/uL Abs Immat Gran (auto) 0.03 (0.00-0.03) X10*3/uL Absolute Neuts (auto) 5.3 (2.0-8.3) x10*3/uL Absolute Nucleated RBC 0.000 (0.0-0.012) X10*3/uL Nucleated RBC % (auto) 0.0 (0.0-0.2) /100WBC Sodium 141 (135-145) mmol/L Potassium 3.5 (3.3-5.1) mmol/L Chloride 107 (96-108) mmol/L Carbon Dioxide 25 (22-29) mmol/L Anion Gap 13 (12-20) BUN 28 H (9-16) mg/dL Creatinine 1.05 (0.5-1.4) mg/dL Estim Creat Clear Calc 87.7 Estimated GFR > 60 Random Glucose 133 H (60-115) mg/dL Calcium 9.3 (8.4-10.2) mg/dL Magnesium 2.2 (1.6-2.6) mg/dL Total Bilirubin 0.6 (0.0-1.0) mg/dL Direct Bilirubin 0.2 (0.0-0.5) mg/dL AST 57 H (5-37) U/L ALT 69 H (0-40) U/L Alkaline Phosphatase 100 (39-117) U/L Total Creatine Kinase 894 H (38-174) U/L Troponin I High Sens 6.8 (<3.5-35.0) ng/L Total Protein 7.4 (6.5-8.0) g/dL Albumin 4.5 (3.5-5.0) g/dL Urine Color Urine Appearance Urine pH (5.0-9.0) Ur Specific [place] (1.005-1.025) Urine Protein (Neg-Trace) mg/dL Urine Glucose (UA) (Negative) mg/dL Urine Ketones (Negative) mg/dL Urine Blood (Negative) Urine Nitrite (Negative) Ur Leukocyte Esterase (Negative) 09/30/22 09/30/22 09/30/22 Range/Units 21:51 21:51 23:03 WBC (4.8-10.8) X10*3/uL RBC (4.60-5.80) X10*6/uL Hgb (14.0-18.0) g/dl Hct (42.0-52.0) % MCV (80.0-98.0) fL MCH (27.0-33.0) pg MCHC (31.0-36.0) g/dl RDW (11.0-16.0) % Plt Count (160-400) X10*3/uL MPV (9.4-12.4) fL Immature Gran % (Auto) (0.0-0.4) % Neut % (Auto) (45-73) % Lymph % (Auto) (20-40) % [place] % (Auto) (2-11) % Eos % (Auto) (0-4) % Baso % (Auto) (0-2) % Lymph # (Auto) (1.2-4.9) X10*3/uL [place] # (Auto) (0.1-1.2) X10*3/uL Eos # (Auto) (0.0-0.4) X10*3/uL Baso # (Auto) (0.0-0.2) X10*3/uL Abs Immat Gran (auto) (0.00-0.03) X10*3/uL Absolute Neuts (auto) (2.0-8.3) x10*3/uL Absolute Nucleated RBC (0.0-0.012) X10*3/uL Nucleated RBC % (auto) (0.0-0.2) /100WBC Sodium (135-145) mmol/L Potassium (3.3-5.1) mmol/L Chloride (96-108) mmol/L Carbon Dioxide (22-29) mmol/L Anion Gap (12-20) BUN (9-16) mg/dL Creatinine (0.5-1.4) mg/dL Estim Creat Clear Calc Estimated GFR Random Glucose (60-115) mg/dL Calcium (8.4-10.2) mg/dL Magnesium (1.6-2.6) mg/dL Total Bilirubin (0.0-1.0) mg/dL Direct Bilirubin (0.0-0.5) mg/dL AST (5-37) U/L ALT (0-40) U/L Alkaline Phosphatase (39-117) U/L Total Creatine Kinase 756 H (38-174) U/L Troponin I High Sens 4.9 (<3.5-35.0) ng/L Total Protein (6.5-8.0) g/dL Albumin (3.5-5.0) g/dL Urine Color Yellow Urine Appearance Clear Urine pH 6.0 (5.0-9.0) Ur Specific [place] 1.025 (1.005-1.025) Urine Protein Negative (Neg-Trace) mg/dL Urine Glucose (UA) Negative (Negative) mg/dL Urine Ketones Trace (Negative) mg/dL Urine Blood Negative (Negative) Urine Nitrite Negative (Negative) Ur Leukocyte Esterase Negative (Negative) <EUSEBIO Eduardo - Last Filed: 09/30/22 18:03> Lab Results 09/30/22 09/30/22 09/30/22 Range/Units 18:53 18:53 18:53 WBC 8.7 (4.8-10.8) X10*3/uL RBC 5.14 (4.60-5.80) X10*6/uL Hgb 14.5 (14.0-18.0) g/dl Hct 42.9 (42.0-52.0) % MCV 83.5 (80.0-98.0) fL MCH 28.2 (27.0-33.0) pg MCHC 33.8 (31.0-36.0) g/dl RDW 12.9 (11.0-16.0) % Plt Count 313 (160-400) X10*3/uL MPV 9.6 (9.4-12.4) fL Immature Gran % (Auto) 0.3 (0.0-0.4) % Neut % (Auto) 61.5 (45-73) % Lymph % (Auto) 26.4 (20-40) % [place] % (Auto) 7.9 (2-11) % Eos % (Auto) 3.0 (0-4) % Baso % (Auto) 0.9 (0-2) % Lymph # (Auto) 2.3 (1.2-4.9) X10*3/uL [place] # (Auto) 0.7 (0.1-1.2) X10*3/uL Eos # (Auto) 0.3 (0.0-0.4) X10*3/uL Baso # (Auto) 0.1 (0.0-0.2) X10*3/uL Abs Immat Gran (auto) 0.03 (0.00-0.03) X10*3/uL Absolute Neuts (auto) 5.3 (2.0-8.3) x10*3/uL Absolute Nucleated RBC 0.000 (0.0-0.012) X10*3/uL Nucleated RBC % (auto) 0.0 (0.0-0.2) /100WBC Sodium 141 (135-145) mmol/L Potassium 3.5 (3.3-5.1) mmol/L Chloride 107 (96-108) mmol/L Carbon Dioxide 25 (22-29) mmol/L Anion Gap 13 (12-20) BUN 28 H (9-16) mg/dL Creatinine 1.05 (0.5-1.4) mg/dL Estim Creat Clear Calc 87.7 Estimated GFR > 60 Random Glucose 133 H (60-115) mg/dL Calcium 9.3 (8.4-10.2) mg/dL Magnesium 2.2 (1.6-2.6) mg/dL Total Bilirubin 0.6 (0.0-1.0) mg/dL Direct Bilirubin 0.2 (0.0-0.5) mg/dL AST 57 H (5-37) U/L ALT 69 H (0-40) U/L Alkaline Phosphatase 100 (39-117) U/L Total Creatine Kinase 894 H (38-174) U/L Troponin I High Sens 6.8 (<3.5-35.0) ng/L Total Protein 7.4 (6.5-8.0) g/dL Albumin 4.5 (3.5-5.0) g/dL Urine Color Urine Appearance Urine pH (5.0-9.0) Ur Specific [place] (1.005-1.025) Urine Protein (Neg-Trace) mg/dL Urine Glucose (UA) (Negative) mg/dL Urine Ketones (Negative) mg/dL Urine Blood (Negative) Urine Nitrite (Negative) Ur Leukocyte Esterase (Negative) 09/30/22 09/30/22 09/30/22 Range/Units 21:51 21:51 23:03 WBC (4.8-10.8) X10*3/uL RBC (4.60-5.80) X10*6/uL Hgb (14.0-18.0) g/dl Hct (42.0-52.0) % MCV (80.0-98.0) fL MCH (27.0-33.0) pg MCHC (31.0-36.0) g/dl RDW (11.0-16.0) % Plt Count (160-400) X10*3/uL MPV (9.4-12.4) fL Immature Gran % (Auto) (0.0-0.4) % Neut % (Auto) (45-73) % Lymph % (Auto) (20-40) % [place] % (Auto) (2-11) % Eos % (Auto) (0-4) % Baso % (Auto) (0-2) % Lymph # (Auto) (1.2-4.9) X10*3/uL [place] # (Auto) (0.1-1.2) X10*3/uL Eos # (Auto) (0.0-0.4) X10*3/uL Baso # (Auto) (0.0-0.2) X10*3/uL Abs Immat Gran (auto) (0.00-0.03) X10*3/uL Absolute Neuts (auto) (2.0-8.3) x10*3/uL Absolute Nucleated RBC (0.0-0.012) X10*3/uL Nucleated RBC % (auto) (0.0-0.2) /100WBC Sodium (135-145) mmol/L Potassium (3.3-5.1) mmol/L Chloride (96-108) mmol/L Carbon Dioxide (22-29) mmol/L Anion Gap (12-20) BUN (9-16) mg/dL Creatinine (0.5-1.4) mg/dL Estim Creat Clear Calc Estimated GFR Random Glucose (60-115) mg/dL Calcium (8.4-10.2) mg/dL Magnesium (1.6-2.6) mg/dL Total Bilirubin (0.0-1.0) mg/dL Direct Bilirubin (0.0-0.5) mg/dL AST (5-37) U/L ALT (0-40) U/L Alkaline Phosphatase (39-117) U/L Total Creatine Kinase 756 H (38-174) U/L Troponin I High Sens 4.9 (<3.5-35.0) ng/L Total Protein (6.5-8.0) g/dL Albumin (3.5-5.0) g/dL Urine Color Yellow Urine Appearance Clear Urine pH 6.0 (5.0-9.0) Ur Specific [place] 1.025 (1.005-1.025) Urine Protein Negative (Neg-Trace) mg/dL Urine Glucose (UA) Negative (Negative) mg/dL Urine Ketones Trace (Negative) mg/dL Urine Blood Negative (Negative) Urine Nitrite Negative (Negative) Ur Leukocyte Esterase Negative (Negative) <Gilbert Hansen MD - Last Filed: 10/01/22 02:58> Independent Interpretation I performed an independent interpretation of an: EKG <Gilbert Hansen MD - Last Filed: 10/01/22 02:58> Interpretation: Normal sinus rhythm LVH no acute ST change and no acute ischemia <Gilbert Hansen MD - Last Filed: 10/01/22 02:58> Discharge Plan Discharge Clinical Impression: Heart palpitations <EUSEBIO Eduardo - Last Filed: 09/30/22 18:03> Patient Disposition: Home, Self-Care <EUSEBIO Eduardo - Last Filed: 09/30/22 18:03> Instructions: Heart Palpitations (ED) <EUSEBIO Eduardo - Last Filed: 09/30/22 18:03> Additional Instructions: 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 for further evaluation including heart Holter monitoring Report to the ER if prolonged palpitation/passing out episode <EUSEBIO Eduardo - Last Filed: 09/30/22 18:03> Prescriptions: No Action valacyclovir 1 gram tablet 1,000 mg PO Q12H 10 Days Qty: 20 0RF metoclopramide HCl [Reglan] 10 mg tablet 10 mg PO Q6H PRN (Reason: nausea and vomiting) Qty: 7 0RF prochlorperazine maleate [Compazine] 5 mg tablet 5 mg PO BID PRN (Reason: nausea and vomiting) Qty: 10 0RF dicyclomine 20 mg tablet 20 mg PO QID PRN (Reason: abdominal pain) Qty: 12 0RF ondansetron 4 mg tablet,disintegrating 4 mg PO Q6-8H PRN (Reason: nausea and vomiting) Qty: 7 0RF gabapentin 100 mg capsule 200 mg PO TID Qty: 180 0RF ondansetron 4 mg tablet,disintegrating 2 mg PO Q6-8H PRN promethazine 12.5 mg tablet 12.5 mg PO Q6-8H pantoprazole 40 mg tablet,delayed release (DR/EC) 40 mg PO BID sucralfate 1 gram tablet 1 g PO QID albuterol sulfate [ProAir HFA] 90 mcg/actuation HFA aerosol inhaler 0 mcg inhalation nifedipine 30 mg tablet extended release 30 mg PO DAILY aripiprazole 15 mg tablet 15 mg PO DAILY nifedipine 30 mg tablet extended release 24hr 30 mg PO DAILY gabapentin 400 mg capsule 400 mg PO TID omeprazole 20 mg capsule,delayed release(DR/EC) 20 mg PO BID tamsulosin 0.4 mg capsule 0.4 mg PO DAILY lidocaine 4 % cream topical diazepam 5 mg tablet 5 mg PO BID PRN alum-mag hydroxide-simeth [Mintox Maximum Strength] 400-400-40 mg/5 mL suspension 20 ml PO QID PRN <EUSEBIO Eduardo - Last Filed: 09/30/22 18:03> Referrals: Jameel Parker MD [Physician] - 1 week <EUSEBIO Eduardo - Last Filed: 09/30/22 18:03> Interventions: ED Discharge Assessment Last Done: 10/01/22 00:47 <EUSEBIO Eduardo - Last Filed: 09/30/22 18:03> Discharge Date/Time: 10/01/22 00:51 <EUSEBIO Eduardo - Last Filed: 09/30/22 18:03>
[2022-09-30 18:58] LABS: Basophils Absolute Auto 0.1 X10*3/uL (0.0-0.2); Basophils Percent Auto 0.9 % (0-2); Eosinophils Absolute Auto 0.3 X10*3/uL (0.0-0.4); Hematocrit 42.9 % (42.0-52.0); Hemoglobin 14.5 g/dl (14.0-18.0); Imm Gran Abs Auto 0.03 X10*3/uL (0.00-0.03); Imm Gran Pct Auto 0.3 % (0.0-0.4); Lymphocytes Absolute Auto 2.3 X10*3/uL (1.2-4.9); Lymphocytes Percent Auto 26.4 % (20-40); MANUAL DIFF FLAG NO; Mean Corpuscular HGB Conc 33.8 g/dl (31.0-36.0); Mean Corpuscular Hemoglobin 28.2 pg (27.0-33.0); Mean Corpuscular Volume 83.5 fL (80.0-98.0); Mean Platelet Volume 9.6 fL (9.4-12.4); Monocytes Absolute Auto 0.7 X10*3/uL (0.1-1.2); Monocytes Percent Auto 7.9 % (2-11); Neutrophils Absolute Auto 5.3 x10*3/uL (2.0-8.3); Neutrophils Percent Auto 61.5 % (45-73); Platelet Count 313 X10*3/uL (160-400); Red Blood Count 5.14 X10*6/uL (4.60-5.80); Red Cell Distribution Width 12.9 % (11.0-16.0); White Blood Count 8.7 X10*3/uL (4.8-10.8)
[2022-09-30 19:19] LABS: Alanine Aminotransferase 69 U/L (0-40); Albumin Level 4.5 g/dL (3.5-5.0); Alkaline Phosphatase 100 U/L (39-117); Anion Gap 13 (12-20); Aspartate Amino Transferase 57 U/L (5-37); Bilirubin Direct 0.2 mg/dL (0.0-0.5); Bilirubin Total 0.6 mg/dL (0.0-1.0); Blood Urea Nitrogen 28 mg/dL (9-16); Calcium 9.3 mg/dL (8.4-10.2); Carbon Dioxide 25 mmol/L (22-29); Chloride 107 mmol/L (96-108); Creatinine Clr Calc Pharmacy 87.7; Estimated Glomerular Filt Rate > 60; Glucose Random 133 mg/dL (60-115); Magnesium 2.2 mg/dL (1.6-2.6); Potassium 3.5 mmol/L (3.3-5.1); Sodium 141 mmol/L (135-145); Total Protein 7.4 g/dL (6.5-8.0)
[2022-09-30 19:27] LABS: Troponin-I High Sensitivity 6.8 ng/L (<3.5-35.0)
[2022-09-30 21:04] VITALS: BP 129/89; PULSE 77; RESP 18; TEMP 36.4; O2SAT 97
[2022-09-30] MEDS: 0.9 % Sodium Chloride 1,000 ML 999 ML IV (21:52)
[2022-09-30] MEDS: Ketorolac Tromethamine 30 MG/ML VIAL IVPUSH (21:52)
--- NOTE | 2022-09-30 22:00 | PC.NURSE ---
pt a&o, no sob or distress at this time, medicated for Mar for chest pain. no n/v. pt given a warm blanker. Will continue to monitor.
[2022-09-30 22:16] LABS: Troponin-I High Sensitivity 4.9 ng/L (<3.5-35.0)
[2022-09-30 23:10] LABS: Appearance Urine Clear; Color Urine Yellow; Glucose Urine UA Negative (Negative); Leukocyte Esterase Urine Negative (Negative); Nitrite Urine Negative (Negative); Specific Gravity - Urine 1.025 (1.005-1.025); Urine Blood Negative (Negative); Urine Ketones Trace mg/dL (Negative); Urine Protein Negative (Neg-Trace)
[2022-09-30 23:20] VITALS: BP 104/65; PULSE 79; RESP 16; TEMP 36.4; O2SAT 98
--- NOTE | 2022-10-01 00:49 | PC.NURSE ---
pt a&o, no sob or chest pain at discharge no sign of distress. Reviewed discharge instructions. pt verbalized understanding.
== END 2022-10-01 00:51 | disposition home or self-care (01) ==
PROVIDERS: Physician Assistant; Emergency Provider Internal Medicine
DX: R00.2 Palpitations (principal); Z87.820 Personal history of traumatic brain injury; Z87.891 Personal history of nicotine dependence; Z79.899 Other long term (current) drug therapy
CPT/HCPCS: 36415; 71046; 80048; 80076; 81003; 82550; 83735; 84484; 85025; 93005; 96374; 99284; 99285; J1885

== ENCOUNTER 2022-10-01 22:12 | Emergency (ER) | payer OTHER, SELFPAY ==
[2022-10-01 22:21] VITALS: BP 159/109; PULSE 96; O2SAT 96
[2022-10-01 23:08] VITALS: BP 139/92; PULSE 88; RESP 16; TEMP 37.2; O2SAT 97; BMI 28.3
== END 2022-10-02 02:17 | disposition left against medical advice (07) ==
PROVIDERS: Emergency Provider Emergency Medicine
DX: M54.50 Low back pain, unspecified (principal)
CPT/HCPCS: 99281

== ENCOUNTER 2022-10-11 16:58 | Emergency (ER) | payer OTHER, SELFPAY ==
[2022-10-11 17:16] VITALS: BP 162/90; PULSE 90; O2SAT 99
--- NOTE | 2022-10-11 17:16 | ECG_ITS ---
Test Reason : l sided chest pain Blood Pressure : / mmHG Vent. Rate : 104 BPM Atrial Rate : 104 BPM P-R Int : 126 ms QRS Dur : 098 ms QT Int : 362 ms P-R-T Axes : 046 007 035 degrees QTc Int : 476 ms Artifact in tracing Sinus tachycardia Minimal voltage criteria for LVH, may be normal variant ( R in aVL ) Borderline ECG When compared with ECG of 30-SEP-2022 18:08, No significant changes seen Referred By: Generic ED Physician Electronically Signed By:TAWANDA SALGUERO
--- NOTE | 2022-10-11 17:36 | MHC.EDTECH ---
patient ekg done was read by provider .
[2022-10-11 17:39] VITALS: BP 139/87; PULSE 98; RESP 18; TEMP 36.6; O2SAT 98; BMI 28.3
== END 2022-10-11 20:29 | disposition left against medical advice (07) ==
PROVIDERS: Emergency Provider Emergency Medicine
DX: R07.9 Chest pain, unspecified (principal); R68.83 Chills (without fever)
CPT/HCPCS: 93005; 99283

== ENCOUNTER 2022-10-16 17:30 | Emergency (ER) | payer OTHER, SELFPAY ==
[2022-10-16 17:39] VITALS: BP 145/94; PULSE 90; RESP 18; TEMP 36.8; O2SAT 95; BMI 29.2
--- NOTE | 2022-10-16 19:29 | ED.NAVMDI ---
HPI - Nausea/Vomiting/Diarrhea General Chief complaint: Nausea/Vomiting/Diarrhea Stated complaint: N/V Time Seen by Provider: 10/16/22 18:46 History of Present Illness HPI Narrative: Patient had 2nd COVID shot earlier today since then been having nausea and vomiting vomited about 6-7 times no diarrhea vitals stable on arrival looks comfortable MD elicited complaint: nausea and vomiting Related Data Home Medications Medication Instructions Recorded Confirmed albuterol sulfate 90 mcg/actuation 0 mcg inhalation 03/20/22 05/15/22 aerosol inhaler (ProAir HFA) aripiprazole 15 mg tablet 15 mg PO DAILY 03/20/22 05/15/22 diazepam 5 mg tablet 5 mg PO BID PRN 03/20/22 05/15/22 gabapentin 400 mg capsule 400 mg PO TID 03/20/22 05/15/22 lidocaine 4 % topical cream g topical 03/20/22 05/15/22 nifedipine 30 mg tablet,extended 30 mg PO DAILY 03/20/22 05/15/22 release nifedipine 30 mg tablet,extended 30 mg PO DAILY 03/20/22 release 24 hr omeprazole 20 mg capsule,delayed 20 mg PO BID 03/20/22 05/15/22 release ondansetron 4 mg disintegrating 2 mg PO Q6-8H PRN 03/20/22 05/15/22 tablet pantoprazole 40 mg tablet,delayed 40 mg PO BID 03/20/22 05/15/22 release promethazine 12.5 mg tablet 12.5 mg PO Q6-8H 03/20/22 sucralfate 1 gram tablet 1 g PO QID 03/20/22 tamsulosin 0.4 mg capsule 0.4 mg PO DAILY 03/20/22 aluminum-mag hydroxide-simethicone 20 ml PO QID PRN 05/15/22 05/15/22 400 mg-400 mg-40 mg/5 mL oral susp (Mintox Maximum Strength) Previous Rx's Medication Instructions Recorded metoclopramide HCl 10 mg tablet 10 mg PO Q6H PRN nausea and 02/18/21 (Reglan) vomiting #7 tabs valacyclovir 1 gram tablet 1,000 mg PO Q12H 10 days #20 tabs 02/24/21 dicyclomine 20 mg tablet 20 mg PO QID PRN abdominal pain 07/29/22 #12 tabs ondansetron 4 mg disintegrating 4 mg PO Q6-8H PRN nausea and 07/29/22 tablet vomiting #7 tabs prochlorperazine maleate 5 mg 5 mg PO BID PRN nausea and 08/20/22 tablet (Compazine) vomiting #10 tabs gabapentin 100 mg capsule 200 mg PO TID #180 caps 09/01/22 ondansetron 4 mg disintegrating 4 mg PO Q6-8H PRN nausea and 10/16/22 tablet vomiting #7 tabs Allergies Allergy/AdvReac Type Severity Reaction Status Date / Time amoxicillin Allergy Vomiting Verified 10/16/22 17:39 heparin Allergy Hives Verified 10/16/22 17:39 lamotrigine [From Lamictal] Allergy Hives Verified 10/16/22 17:39 levetiracetam [From Keppra] Allergy Hives Verified 10/16/22 17:39 Review of Systems Review of Systems: Yes all other systems are reviewed and are negative PMFSH Past Medical History Medical History Back pain Bipolar 1 disorder Neck pain PTSD (post-traumatic stress disorder) Seizure Seizure disorder Sleep disorder TBI (traumatic brain injury) Surgical History Hx of hernia repair Family History Family History Mother Cancer Family/Other No problems noted. Social History Social History Alcohol intake: never Patient Tobacco Use Status: Former Tobacco user Advance Directives: No Advance Directives Information Provided: No Physical Exam Vital Signs: Vital Signs: Last Vital Signs Temp 98.2 F 10/16/22 17:39 Pulse 90 10/16/22 17:39 Resp 18 10/16/22 17:39 BP 145/94 H 10/16/22 17:39 Pulse Ox 95 10/16/22 17:39 O2 Del Method 10/16/22 17:39 BMI result Body Mass Index 29.2 Appearance: Alert. Oriented X3. No acute distress. ENT: Pharynx normal. Oral Mucosa moist Neck: Normal inspection. Neck supple. CVS: Normal heart rate and rhythm. Pulses normal. Respiratory: No respiratory distress. Equal air entry bilateral, no wheezing/rales/rhonchi Abdomen: Soft and nontender. Bowel sounds are present, Skin: Skin warm and dry. Normal skin color. Normal skin turgor. Neuro: Oriented X 3. Discharge Plan Discharge Clinical Impression: Gastroenteritis Patient Disposition: Home, Self-Care Instructions: Acute Nausea and Vomiting (ED) Additional Instructions: Drink plenty of fluids Meds for nausea as advised Prescriptions: New ondansetron 4 mg tablet,disintegrating 4 mg PO Q6-8H PRN (Reason: nausea and vomiting) Qty: 7 0RF No Action valacyclovir 1 gram tablet 1,000 mg PO Q12H 10 Days Qty: 20 0RF metoclopramide HCl [Reglan] 10 mg tablet 10 mg PO Q6H PRN (Reason: nausea and vomiting) Qty: 7 0RF prochlorperazine maleate [Compazine] 5 mg tablet 5 mg PO BID PRN (Reason: nausea and vomiting) Qty: 10 0RF dicyclomine 20 mg tablet 20 mg PO QID PRN (Reason: abdominal pain) Qty: 12 0RF ondansetron 4 mg tablet,disintegrating 4 mg PO Q6-8H PRN (Reason: nausea and vomiting) Qty: 7 0RF gabapentin 100 mg capsule 200 mg PO TID Qty: 180 0RF ondansetron 4 mg tablet,disintegrating 2 mg PO Q6-8H PRN promethazine 12.5 mg tablet 12.5 mg PO Q6-8H pantoprazole 40 mg tablet,delayed release (DR/EC) 40 mg PO BID sucralfate 1 gram tablet 1 g PO QID albuterol sulfate [ProAir HFA] 90 mcg/actuation HFA aerosol inhaler 0 mcg inhalation nifedipine 30 mg tablet extended release 30 mg PO DAILY aripiprazole 15 mg tablet 15 mg PO DAILY nifedipine 30 mg tablet extended release 24hr 30 mg PO DAILY gabapentin 400 mg capsule 400 mg PO TID omeprazole 20 mg capsule,delayed release(DR/EC) 20 mg PO BID tamsulosin 0.4 mg capsule 0.4 mg PO DAILY lidocaine 4 % cream topical diazepam 5 mg tablet 5 mg PO BID PRN alum-mag hydroxide-simeth [Mintox Maximum Strength] 400-400-40 mg/5 mL suspension 20 ml PO QID PRN
[2022-10-16] MEDS: Ondansetron ODT 4 MG TAB.RAPDIS TRANSLINGU (19:39)
== END 2022-10-16 20:02 | disposition home or self-care (01) ==
PROVIDERS: Emergency Provider Internal Medicine
DX: K52.9 Noninfective gastroenteritis and colitis, unspecified (principal); R11.2 Nausea with vomiting, unspecified; Z87.891 Personal history of nicotine dependence
CPT/HCPCS: 99282; 99283

== ENCOUNTER 2022-11-12 14:00 | Emergency (ER) | payer OTHER, SELFPAY ==
--- NOTE | ~2022-11-12 | CT_ITS ---
EXAMINATION: CT HEAD WITHOUT CONTRAST CLINICAL INFORMATION: Headache. COMPARISON: Head CT scan dated 07/20/2022. TECHNIQUE: Contiguous axial imaging was performed from the skull base to vertex without intravenous administration of contrast. Coronal and sagittal reformatted images were obtained. This CT examination was performed using dose optimization techniques as appropriate, variously including the following: *Automated exposure control *Adjustment of mA and/or kV according to patient size (this includes techniques or standardized protocols for targeted exams where dose is matched to indication/reason for exam; i.e. extremities or head) *Use of iterative reconstruction technique DLP: 596 mGy-cm FINDINGS: The cortical sulci are normal. The lateral ventricles are symmetrical. The third and fourth ventricles are in their normal midline position. The basilar and prepontine cisterns are unremarkable. There is no acute intra or extracerebral abnormality. There is no mass effect or midline shift. Sections through the bony calvarium are unremarkable. The paranasal sinuses are clear. The bony orbits and orbital contents are unremarkable. Mild mid nasal septal deviation apex the left with small apical spur. CT/CT head/brain wo IV con IMPRESSION: No acute intracranial pathology.
[2022-11-12 14:16] VITALS: BP 128/90; PULSE 70; RESP 18; TEMP 36.1; O2SAT 97; BMI 29.2
--- NOTE | 2022-11-12 14:47 | ECG_ITS ---
Test Reason : HEADACHE Blood Pressure : / mmHG Vent. Rate : 068 BPM Atrial Rate : 068 BPM P-R Int : 148 ms QRS Dur : 084 ms QT Int : 414 ms P-R-T Axes : 006 011 007 degrees QTc Int : 440 ms Normal sinus rhythm Minimal voltage criteria for LVH, may be normal variant ( R in aVL ) Borderline ECG When compared with ECG of 11-OCT-2022 17:30, Vent. rate has decreased BY 36 BPM Nonspecific T wave abnormality no longer evident in Lateral leads Referred By: Ayse Fields Electronically Signed By:ANSHU PATRICIO MD
[2022-11-12 15:14] LABS: MANUAL DIFF FLAG NO
[2022-11-12 15:19] LABS: Basophils Absolute Auto 0.1 X10*3/uL (0.0-0.2); Basophils Percent Auto 0.8 % (0-2); Eosinophils Absolute Auto 0.2 X10*3/uL (0.0-0.4); Eosinophils Percent Auto 3.1 % (0-4); Hematocrit 44.6 % (42.0-52.0); Hemoglobin 15.2 g/dl (14.0-18.0); Imm Gran Abs Auto 0.02 X10*3/uL (0.00-0.03); Imm Gran Pct Auto 0.3 % (0.0-0.4); Lymphocytes Absolute Auto 1.6 X10*3/uL (1.2-4.9); Lymphocytes Percent Auto 25.2 % (20-40); Mean Corpuscular HGB Conc 34.1 g/dl (31.0-36.0); Mean Corpuscular Hemoglobin 28.4 pg (27.0-33.0); Mean Corpuscular Volume 83.2 fL (80.0-98.0); Mean Platelet Volume 9.9 fL (9.4-12.4); Monocytes Absolute Auto 0.6 X10*3/uL (0.1-1.2); Monocytes Percent Auto 9.1 % (2-11); Neutrophils Absolute Auto 3.8 x10*3/uL (2.0-8.3); Neutrophils Percent Auto 61.5 % (45-73); Platelet Count 284 X10*3/uL (160-400); Red Blood Count 5.36 X10*6/uL (4.60-5.80); Red Cell Distribution Width 13.2 % (11.0-16.0); White Blood Count 6.2 X10*3/uL (4.8-10.8)
[2022-11-12 15:32] LABS: COVID-19 Test Negative (Negative); IDNOW Serial# 55D5AD1C
[2022-11-12 15:35] LABS: IDNOW Serial# 9DB6401D; Influenza A Negative (Negative); Influenza B2 Negative (Negative)
[2022-11-12 15:52] LABS: Alanine Aminotransferase 72 U/L (0-40); Albumin Level 4.1 g/dL (3.5-5.0); Alkaline Phosphatase 116 U/L (39-117); Anion Gap 12 (12-20); Aspartate Amino Transferase 53 U/L (5-37); Bilirubin Total 0.8 mg/dL (0.0-1.0); Blood Urea Nitrogen 13 mg/dL (9-16); Calcium 9.3 mg/dL (8.4-10.2); Carbon Dioxide 26 mmol/L (22-29); Chloride 107 mmol/L (96-108); Creatinine Clr Calc Pharmacy 112.5; Estimated Glomerular Filt Rate > 60; Glucose Random 95 mg/dL (60-115); Potassium 4.2 mmol/L (3.3-5.1); Sodium 141 mmol/L (135-145); Total Protein 6.8 g/dL (6.5-8.0)
--- NOTE | 2022-11-12 15:53 | ED_ITS ---
HPI - General Adult General Chief complaint: Headache Stated complaint: VALLEJO,NAUSEA PER EMS Time Seen by Provider: 11/12/22 15:52 Source: patient Mode of arrival: ambulatory Limitations: no limitations History of Present Illness HPI narrative: Patient is a 36 year old assigned male at with a history of a TBI and seizures presenting to the emergency department today with a headache, nausea, and vomiting. Patient states that he has a general headache, became nauseous, and started vomiting. Patient denies any dizziness, lightheadedness, abdominal pain, fever, chills, blurry vision, double vision, loss of vision, chest pain, difficulty breathing, shortness of breath, back pain, night sweats, pain with urination, increased urinary frequency, increased urinary urgency, blood in his urine or stool, syncope or a near syncopal episode, recent trauma or falls, bowel incontinence, bladder incontinence, bowel retention, bladder retention, or any other complaints at this time. Onset (ago): hour(s) Location: head Severity: mild Severity scale (1-10): 2 Relieving factors: none Exacerbating factors: none Associated symptoms: nausea/vomiting Treatments prior to arrival: none Related Data Home Medications Medication Instructions Recorded Confirmed albuterol sulfate 90 mcg/actuation 0 mcg inhalation 03/20/22 05/15/22 aerosol inhaler (ProAir HFA) aripiprazole 15 mg tablet 15 mg PO DAILY 03/20/22 05/15/22 diazepam 5 mg tablet 5 mg PO BID PRN 03/20/22 05/15/22 gabapentin 400 mg capsule 400 mg PO TID 03/20/22 05/15/22 lidocaine 4 % topical cream g topical 03/20/22 05/15/22 nifedipine 30 mg tablet,extended 30 mg PO DAILY 03/20/22 05/15/22 release nifedipine 30 mg tablet,extended 30 mg PO DAILY 03/20/22 release 24 hr omeprazole 20 mg capsule,delayed 20 mg PO BID 03/20/22 05/15/22 release ondansetron 4 mg disintegrating 2 mg PO Q6-8H PRN 03/20/22 05/15/22 tablet pantoprazole 40 mg tablet,delayed 40 mg PO BID 03/20/22 05/15/22 release promethazine 12.5 mg tablet 12.5 mg PO Q6-8H 03/20/22 sucralfate 1 gram tablet 1 g PO QID 03/20/22 tamsulosin 0.4 mg capsule 0.4 mg PO DAILY 03/20/22 aluminum-mag hydroxide-simethicone 20 ml PO QID PRN 05/15/22 05/15/22 400 mg-400 mg-40 mg/5 mL oral susp (Mintox Maximum Strength) Previous Rx's Medication Instructions Recorded metoclopramide HCl 10 mg tablet 10 mg PO Q6H PRN nausea and 02/18/21 (Reglan) vomiting #7 tabs valacyclovir 1 gram tablet 1,000 mg PO Q12H 10 days #20 tabs 02/24/21 dicyclomine 20 mg tablet 20 mg PO QID PRN abdominal pain 07/29/22 #12 tabs ondansetron 4 mg disintegrating 4 mg PO Q6-8H PRN nausea and 07/29/22 tablet vomiting #7 tabs prochlorperazine maleate 5 mg 5 mg PO BID PRN nausea and 08/20/22 tablet (Compazine) vomiting #10 tabs gabapentin 100 mg capsule 200 mg PO TID #180 caps 09/01/22 ondansetron 4 mg disintegrating 4 mg PO Q6-8H PRN nausea and 10/16/22 tablet vomiting #7 tabs Allergies Allergy/AdvReac Type Severity Reaction Status Date / Time amoxicillin Allergy Vomiting Verified 10/16/22 17:39 heparin Allergy Hives Verified 10/16/22 17:39 lamotrigine [From Lamictal] Allergy Hives Verified 10/16/22 17:39 levetiracetam [From Keppra] Allergy Hives Verified 10/16/22 17:39 Review of Systems Constitutional: Constitutional: Reports no additional constitutional complaints, Denies chills, Denies fever(s), Reports headache(s) and Denies night sweats Eyes: Eyes: Reports no additional eye complaints, Denies blurry vision, Denies change in vision, Denies diplopia, Denies eye discharge, Denies loss of vision and Denies eye pain ENT: Denies dizziness and Reports headache(s) Cardiovascular: Cardiovascular: Reports no additional cardiovascular complaints, Denies chest pain, Denies lightheadedness, Denies Loss of Consciousness and Denies dyspnea Respiratory: Respiratory: Reports no additional respiratory complaints and Denies dyspnea Gastrointestinal: Gastrointestinal: Reports no additional gastrointestinal complaints, Denies abdominal pain, Denies melena, Denies hematochezia, Denies change in bowel habits, Denies change in stool character, Reports nausea and Reports vomiting Genitourinary: Genitourinary: Reports no additional male genitourinary complaints, Denies hematuria, Denies oliguria, Denies difficulty urinating, Denies dysuria, Denies urinary frequency, Denies urinary hesitancy, Denies urinary incontinence and Denies urinary urgency Musculoskeletal: Musculoskeletal: Reports no additional musculoskeletal complaints, Denies numbness and Denies tingling Neurologic: Denies dizziness, Reports headache(s), Denies loss of vision, Denies numbness and Denies tingling Psychiatric: Psychiatric: Reports no additional psychiatric complaints Endocrine: Endocrine: Reports no additional endocrine complaints Hematologic/Lymphatic: Hematologic/Lymphatic: Reports no additional hematologic/lymphatic complaints Allergic/Immunologic: Allergic/Immunologic: Reports no additional allergic/immunologic complaints PMFSH Past Medical History Attestation statement: The following information was validated with the patient. Source: old records reviewed and nursing notes reviewed Medical History Back pain Bipolar 1 disorder Neck pain PTSD (post-traumatic stress disorder) Seizure Seizure disorder Sleep disorder TBI (traumatic brain injury) Surgical History Hx of hernia repair Family History Family History Mother Cancer Family/Other No problems noted. Social History Social History Alcohol intake: current Alcohol intake frequency: does not drink Patient Tobacco Use Status: Former Tobacco user Physical Exam ED Vital Signs: Vital Signs - 24 hr 11/12/22 14:16 Temperature 97.0 F Pulse Rate 70 Respiratory Rate 18 Blood Pressure 128/90 H Pulse Oximetry 97 Oxygen Delivery Method Room Air BMI result Body Mass Index 29.2 Const General: cooperative, no acute distress, alert and awake Nutritional Appearance: well nourished Orientation/consciousness: patient oriented x3 Limitations: no limitations HENMT Head: Yes normal to inspection and Yes atraumatic Ears: hearing grossly normal bilaterally and external ears normal General nose exam: Normal external nose present, no nasal discharge noted and no epistaxis Face and sinus: Yes normal facial exam, No abrasion and No laceration Mouth: Normal oral and palatal mucosa present, no drooling and no muffled voice Eyes General: appearance normal, both eyes and all related structures Periorbital: periorbital findings normal Eyelids: Yes eyelids normal Conjunctivae: conjunctivae normal Pupils: Equal, round and reactive pupils present EOM: EOMs intact bilaterally Neck Neck: Yes normal visual inspection, Yes full ROM and Yes no lymphadenopathy Chest Chest palpation & inspection: normal inspection of the chest Resp Effort & Inspection: normal respiratory effort and able to speak in complete sentences Auscultation: clear to auscultation bilaterally Cardio Rate: regular rate Rhythm: regular rhythm GI Inspection: Yes normal to inspection Neuro General: patient oriented x3 and moves all extremities Cranial nerves: Yes Equal, round and reactive pupils present Cognition (Neuro): normal cognition Motor exam (neuro): 5/5 motor strength present throughout Sensory Exam: Normal double simultaneous stimulation for sensation Coordination: [id number] test normal Extrem General: Yes normal to inspection, Yes full ROM and Yes capillary refill normal Psych Appearance: grossly normal Mental Status: mental status grossly normal Affect: normal affect Attitude: cooperative Thought process: Normal thought process present Thought content: Normal thought content present Insight: Good insight present (Psych) Medications Administered Discontinued Medications Generic Name Dose Route Start Last Admin Trade Name Ashley PRN Reason Stop Dose Admin Sodium Chloride 1,000 mls @ 999 mls/hr 11/12/22 16:00 11/12/22 18:30 Ns IV 11/12/22 17:00 Infused .Q1H1M THALIA Infusion Ketorolac Tromethamine 15 mg 11/12/22 15:54 11/12/22 16:52 Ketorolac Tromethamine 15 Mg/Ml Vial IVPUSH 11/12/22 15:55 15 mg ONCE ONE Administration Metoclopramide HCl 10 mg 11/12/22 15:54 11/12/22 16:52 Metoclopramide Hcl 10 Mg/2 Ml Vial IVPUSH 11/12/22 15:55 10 mg ONCE ONE Administration Medical Decision Making Medical Decision Making [facility] Narrative: Patient is a 36 year old assigned male at with a history of TBI and se izures presenting to the emergency department today with a headache, nausea, and vomiting. Patient's physical exam was unremarkable. Patient's blood work was unremarkable. Patient's EKG was unremarkable. Patient's head CT showed no acute process. I explained my physical exam findings as well as all test results to the patient. I answered all questions asked by the patient. I stressed the importance of the patient taking his medication as prescribed. I stressed the importance of the patient following up with his primary care provider. I stressed the importance of the patient returning to the emergency department immediately if his symptoms were to worsen or if he were to develop any dizziness, shortness of breath, difficulty breathing, chest pain, blurry vision, loss of vision, nausea, vomiting, abdominal pain, fever, chills, back pain, or any other complaints. Patient verbalized agreement and understanding with this treatment plan and discharge. Differential Diagnosis Differential Diagnoses: The differential diagnosis associated with the presentation includes migraine, headache Lab Data MDM Lab Attestation statement: I reviewed the patient's lab results. 11/12/22 15:10 11/12/22 15:11 Labs: Lab Results 11/12/22 11/12/22 11/12/22 Range/Units 15:10 15:10 15:10 WBC 6.2 (4.8-10.8) X10*3/uL RBC 5.36 (4.60-5.80) X10*6/uL Hgb 15.2 (14.0-18.0) g/dl Hct 44.6 (42.0-52.0) % MCV 83.2 (80.0-98.0) fL MCH 28.4 (27.0-33.0) pg MCHC 34.1 (31.0-36.0) g/dl RDW 13.2 (11.0-16.0) % Plt Count 284 (160-400) X10*3/uL MPV 9.9 (9.4-12.4) fL Immature Gran % (Auto) 0.3 (0.0-0.4) % Neut % (Auto) 61.5 (45-73) % Lymph % (Auto) 25.2 (20-40) % [place] % (Auto) 9.1 (2-11) % Eos % (Auto) 3.1 (0-4) % Baso % (Auto) 0.8 (0-2) % Lymph # (Auto) 1.6 (1.2-4.9) X10*3/uL [place] # (Auto) 0.6 (0.1-1.2) X10*3/uL Eos # (Auto) 0.2 (0.0-0.4) X10*3/uL Baso # (Auto) 0.1 (0.0-0.2) X10*3/uL Abs Immat Gran (auto) 0.02 (0.00-0.03) X10*3/uL Absolute Neuts (auto) 3.8 (2.0-8.3) x10*3/uL Absolute Nucleated RBC 0.000 (0.0-0.012) X10*3/uL Nucleated RBC % (auto) 0.0 (0.0-0.2) /100WBC Sodium (135-145) mmol/L Potassium (3.3-5.1) mmol/L Chloride (96-108) mmol/L Carbon Dioxide (22-29) mmol/L Anion Gap (12-20) BUN (9-16) mg/dL Creatinine (0.5-1.4) mg/dL Estim Creat Clear Calc Estimated GFR Random Glucose (60-115) mg/dL Calcium (8.4-10.2) mg/dL Magnesium (1.6-2.6) mg/dL Total Bilirubin (0.0-1.0) mg/dL AST (5-37) U/L ALT (0-40) U/L Alkaline Phosphatase (39-117) U/L Total Protein (6.5-8.0) g/dL Albumin (3.5-5.0) g/dL COVID-19 (ADEN) Negative (Negative) COVID-19 Clin Com See Note Influenza Type A (JUAN MANUEL) Negative (Negative) Influenza Type B (JUAN MANUEL) Negative (Negative) Influenza A & B Note See Note 11/12/22 Range/Units 15:11 WBC (4.8-10.8) X10*3/uL RBC (4.60-5.80) X10*6/uL Hgb (14.0-18.0) g/dl Hct (42.0-52.0) % MCV (80.0-98.0) fL MCH (27.0-33.0) pg MCHC (31.0-36.0) g/dl RDW (11.0-16.0) % Plt Count (160-400) X10*3/uL MPV (9.4-12.4) fL Immature Gran % (Auto) (0.0-0.4) % Neut % (Auto) (45-73) % Lymph % (Auto) (20-40) % [place] % (Auto) (2-11) % Eos % (Auto) (0-4) % Baso % (Auto) (0-2) % Lymph # (Auto) (1.2-4.9) X10*3/uL [place] # (Auto) (0.1-1.2) X10*3/uL Eos # (Auto) (0.0-0.4) X10*3/uL Baso # (Auto) (0.0-0.2) X10*3/uL Abs Immat Gran (auto) (0.00-0.03) X10*3/uL Absolute Neuts (auto) (2.0-8.3) x10*3/uL Absolute Nucleated RBC (0.0-0.012) X10*3/uL Nucleated RBC % (auto) (0.0-0.2) /100WBC Sodium 141 (135-145) mmol/L Potassium 4.2 (3.3-5.1) mmol/L Chloride 107 (96-108) mmol/L Carbon Dioxide 26 (22-29) mmol/L Anion Gap 12 (12-20) BUN 13 (9-16) mg/dL Creatinine 0.83 (0.5-1.4) mg/dL Estim Creat Clear Calc 112.5 Estimated GFR > 60 Random Glucose 95 (60-115) mg/dL Calcium 9.3 (8.4-10.2) mg/dL Magnesium 2.0 (1.6-2.6) mg/dL Total Bilirubin 0.8 (0.0-1.0) mg/dL AST 53 H (5-37) U/L ALT 72 H (0-40) U/L Alkaline Phosphatase 116 (39-117) U/L Total Protein 6.8 (6.5-8.0) g/dL Albumin 4.1 (3.5-5.0) g/dL COVID-19 (ADEN) (Negative) COVID-19 Clin Com Influenza Type A (JUAN MANUEL) (Negative) Influenza Type B (JUAN MANUEL) (Negative) Influenza A & B Note Independent Interpretation I performed an independent interpretation of an: EKG Interpretation: Vent. Rate: 068 BPM ? ? Atrial Rate: 068 BPM P-R Int: 148 ms? QRS Dur: 084 ms QT Int: 414 ms ? ? ? P-R-T Axes: 006 011 007 degrees QTc Int: 440 ms ? Normal sinus rhythm Minimal voltage criteria for LVH, may be normal variant ( R in aVL ) Borderline ECG When compared with ECG of 11-OCT-2022 17:30, Vent. rate has decreased BY? 36 BPM Nonspecific T wave abnormality no longer evident in Lateral leads ? Electronically Signed By:JAMEEL PATRICIO MD Dictated By: Jameel Patricio MD Signed By: Electronically signed by Jameel Patricio MD 11/13/22 0809 Radiology Impression Radiologist Impression: My interpretation is in agreement with the radiologist's impression of this imaging study. EXAMINATION: CT HEAD WITHOUT CONTRAST CLINICAL INFORMATION: Headache.? COMPARISON: Head CT scan dated 07/20/2022.? TECHNIQUE: Contiguous axial imaging was performed from the skull base to vertex without intravenous administration of contrast. Coronal and sagittal reformatted images were obtained. This CT examination was performed using dose optimization techniques as appropriate, variously including the following: *Automated exposure control *Adjustment of mA and/or kV according to patient size (this includes techniques or standardized protocols for targeted exams where dose is matched to indication/reason for exam; i.e. extremities or head) *Use of iterative reconstruction technique DLP: 596 mGy-cm FINDINGS: The cortical sulci are normal. The lateral ventricles are symmetrical. The third and fourth ventricles are in their normal midline position. The basilar and prepontine cisterns are unremarkable. There is no acute intra or extracerebral abnormality. There is no mass effect or midline shift. Sections through the bony calvarium are unremarkable. The paranasal sinuses are clear. The bony orbits and orbital contents are unremarkable. Mild mid nasal septal deviation apex the left with small apical spur. CT/CT head/brain wo IV con IMPRESSION: No acute intracranial pathology. Dictated By: Tk Garcia MD Signed By: Electronically signed by Tk Garcia MD 11/12/22 2159 Discharge Plan Discharge Clinical Impression: Migraine Patient Disposition: Home, Self-Care Instructions: Migraine Headache (ED) Additional Instructions: Follow up with your primary care provider. Return to the emergency department immediately if your symptoms worsen or if you develop any dizziness, shortness of breath, difficulty breathing, chest pain, blurry vision, loss of vision, nausea, vomiting, abdominal pain, fever, chills, back pain, or any other complaints. Prescriptions: No Action valacyclovir 1 gram tablet 1,000 mg PO Q12H 10 Days Qty: 20 0RF metoclopramide HCl [Reglan] 10 mg tablet 10 mg PO Q6H PRN (Reason: nausea and vomiting) Qty: 7 0RF prochlorperazine maleate [Compazine] 5 mg tablet 5 mg PO BID PRN (Reason: nausea and vomiting) Qty: 10 0RF dicyclomine 20 mg tablet 20 mg PO QID PRN (Reason: abdominal pain) Qty: 12 0RF ondansetron 4 mg tablet,disintegrating 4 mg PO Q6-8H PRN (Reason: nausea and vomiting) Qty: 7 0RF gabapentin 100 mg capsule 200 mg PO TID Qty: 180 0RF ondansetron 4 mg tablet,disintegrating 4 mg PO Q6-8H PRN (Reason: nausea and vomiting) Qty: 7 0RF ondansetron 4 mg tablet,disintegrating 2 mg PO Q6-8H PRN promethazine 12.5 mg tablet 12.5 mg PO Q6-8H pantoprazole 40 mg tablet,delayed release (DR/EC) 40 mg PO BID sucralfate 1 gram tablet 1 g PO QID albuterol sulfate [ProAir HFA] 90 mcg/actuation HFA aerosol inhaler 0 mcg inhalation nifedipine 30 mg tablet extended release 30 mg PO DAILY aripiprazole 15 mg tablet 15 mg PO DAILY nifedipine 30 mg tablet extended release 24hr 30 mg PO DAILY gabapentin 400 mg capsule 400 mg PO TID omeprazole 20 mg capsule,delayed release(DR/EC) 20 mg PO BID tamsulosin 0.4 mg capsule 0.4 mg PO DAILY lidocaine 4 % cream topical diazepam 5 mg tablet 5 mg PO BID PRN alum-mag hydroxide-simeth [Mintox Maximum Strength] 400-400-40 mg/5 mL suspension 20 ml PO QID PRN Referrals: [facility] [place] Family Medicine [Provider Group] (Call to establish and follow up with a primary care provider. If you already have a primary care provider, please follow up with them.) [facility] [place] Primary Care, Amandeep [Provider Group] (Call to establish and follow up with a primary care provider. If you already have a primary care provider, please follow up with them.) [facility] [place] Primary Care,Leta [Provider Group] (Call to establish and follow up with a primary care provider. If you already have a primary care provider, please follow up with them.) Stand Alone Forms: Work/School Release Interventions: ED Discharge Assessment Last Done: 11/12/22 19:09 Discharge Date/Time: 11/12/22 18:30 Print Language: [place] Citizen
[2022-11-12 16:00] VITALS: BP 132/92; PULSE 64; RESP 15; TEMP 36.5; O2SAT 98
[2022-11-12] MEDS: 0.9 % Sodium Chloride 1,000 ML 999 ML IV (16:49)
[2022-11-12] MEDS: Ketorolac Tromethamine 15 MG/ML VIAL IVPUSH (16:52)
[2022-11-12] MEDS: Metoclopramide HCl 10 MG/2 ML VIAL IVPUSH (16:52)
--- NOTE | 2022-11-12 17:34 | PC.NURSE ---
pt states his pain is slightly improves, resting in bed. iv fluids infusing
== END 2022-11-12 18:30 | disposition home or self-care (01) ==
PROVIDERS: Physician Assistant Medical; Emergency Provider Emergency Medicine
DX: G43.909 Migraine, unspecified, not intractable, without status migrainosus (principal); R11.2 Nausea with vomiting, unspecified; Z20.822 Contact with and (suspected) exposure to COVID-19; Z20.828 Contact with and (suspected) exposure to other viral communicable diseases; Z79.899 Other long term (current) drug therapy
CPT/HCPCS: 70450; 80053; 83735; 85025; 87502; 87635; 93005; 96361; 96374; 96375; 99284; 99285; J1885; J2765

== ENCOUNTER 2022-11-21 14:11 | Emergency (ER) | payer OTHER, SELFPAY ==
--- NOTE | ~2022-11-21 | CT_ITS ---
EXAMINATION: CT HEAD WITHOUT CONTRAST CT CERVICAL SPINE WITHOUT CONTRAST CLINICAL INFORMATION: Head injury. Fall. COMPARISON: CT head 11/12/2022. CT cervical spine 07/20/2022 TECHNIQUE: Imaging was performed from the skull base to vertex without intravenous administration of contrast. In addition, helical noncontrast CT imaging was acquired through the cervical spine and source images were reviewed along with axial reconstructions and sagittal and coronal MPRs. [This CT examination was performed using dose optimization techniques as appropriate, variously including the following: *Automated exposure control *Adjustment of mA and/or kV according to patient size (this includes techniques or standardized protocols for targeted exams where dose is matched to indication/reason for exam; i.e. extremities or head) *Use of iterative reconstruction technique] DLP: 1027 mGy-cm FINDINGS: HEAD: No intracranial mass, hemorrhage, or midline shift is visualized. The ventricles and sulci are proportional. No extra-axial collections are identified. The paranasal sinuses and mastoid air cells are well aerated. CERVICAL SPINE: There is no evidence of acute cervical spine fracture. Vertebral bodies remain normal in height. Cervical vertebrae have normal alignment. There is mild degenerative spondylosis of the cervical spine with disc height narrowing and endplate spurs. The facet joints are normal. No pre- or paravertebral soft tissue abnormality is identified. Limited assessment of the lung apices is unremarkable. CT/CT cervical spine wo IV con IMPRESSION: 1. No acute intracranial pathology. 2. No CT evidence of acute cervical spine fracture or traumatic subluxation
--- NOTE | ~2022-11-21 | XR_ITS ---
EXAMINATION: XR CHEST CLINICAL INFORMATION: Chest pain COMPARISON: 09/30/2022 TECHNIQUE: Frontal view of the chest was obtained. FINDINGS: Cardiac leads overlie the chest. The lungs are well expanded. No dense consolidation. No edema or effusion. There is minimal patchy opacity at the left base. No pneumothorax. The cardiomediastinal silhouette is within normal limits. No acute osseous abnormality. XR/XR chest 1V IMPRESSION: Minimal patchy opacity at the left base favors atelectasis, though pneumonia not excluded.
--- NOTE | ~2022-11-21 | CT_ITS ---
EXAMINATION: CT HEAD WITHOUT CONTRAST CT CERVICAL SPINE WITHOUT CONTRAST CLINICAL INFORMATION: Head injury. Fall. COMPARISON: CT head 11/12/2022. CT cervical spine 07/20/2022 TECHNIQUE: Imaging was performed from the skull base to vertex without intravenous administration of contrast. In addition, helical noncontrast CT imaging was acquired through the cervical spine and source images were reviewed along with axial reconstructions and sagittal and coronal MPRs. [This CT examination was performed using dose optimization techniques as appropriate, variously including the following: *Automated exposure control *Adjustment of mA and/or kV according to patient size (this includes techniques or standardized protocols for targeted exams where dose is matched to indication/reason for exam; i.e. extremities or head) *Use of iterative reconstruction technique] DLP: 1027 mGy-cm FINDINGS: HEAD: No intracranial mass, hemorrhage, or midline shift is visualized. The ventricles and sulci are proportional. No extra-axial collections are identified. The paranasal sinuses and mastoid air cells are well aerated. CERVICAL SPINE: There is no evidence of acute cervical spine fracture. Vertebral bodies remain normal in height. Cervical vertebrae have normal alignment. There is mild degenerative spondylosis of the cervical spine with disc height narrowing and endplate spurs. The facet joints are normal. No pre- or paravertebral soft tissue abnormality is identified. Limited assessment of the lung apices is unremarkable. CT/CT head/brain wo IV con IMPRESSION: 1. No acute intracranial pathology. 2. No CT evidence of acute cervical spine fracture or traumatic subluxation
[2022-11-21 14:24] VITALS: BP 139/88; BP 150/96; PULSE 78; PULSE 84; RESP 16; TEMP 36.6; O2SAT 97; BMI 32.6
--- NOTE | 2022-11-21 14:41 | ECG_ITS ---
Test Reason : FALL Blood Pressure : / mmHG Vent. Rate : 065 BPM Atrial Rate : 065 BPM P-R Int : 158 ms QRS Dur : 090 ms QT Int : 402 ms P-R-T Axes : 004 001 002 degrees QTc Int : 418 ms Normal sinus rhythm Minimal voltage criteria for LVH, may be normal variant ( R in aVL ) Borderline ECG When compared with ECG of 12-NOV-2022 15:01, No significant change was found Referred By: Liliana Ovalle Electronically Signed By:TAWANDA SALGUERO
--- NOTE | 2022-11-21 14:47 | ED.FALL ---
HPI - Fall General Chief Complaint: Fall Stated Complaint: fall/syncope Time Seen by Provider: 11/21/22 14:19 History of Present Illness HPI Narrative: Patient is a 36-year-old male presenting today with having felt dizzy. Sub fell. It aching his head. Patient felt lightheaded. He has a history of atrial fibrillation. He did not have any palpitation earlier. And is not on blood thinners. Positive history of traumatic brain injury. Positive history of seizures patient is currently on Neurontin. He claims compliance. Did not feel he had a seizure today. He was awake alert oriented the entire time. There is no fever no chills. There is no focal weakness. Patient denies any recreational drug use. There is no alcohol. There is no bloody stool. No history of something similar. You just taking out garbage at the time when he felt lightheaded and fell. The front part of his head did hit the dumpster. Related Data Home Medications Medication Instructions Recorded Confirmed albuterol sulfate 90 mcg/actuation 0 mcg inhalation 03/20/22 05/15/22 aerosol inhaler (ProAir HFA) aripiprazole 15 mg tablet 15 mg PO DAILY 03/20/22 05/15/22 diazepam 5 mg tablet 5 mg PO BID PRN 03/20/22 05/15/22 gabapentin 400 mg capsule 400 mg PO TID 03/20/22 05/15/22 lidocaine 4 % topical cream g topical 03/20/22 05/15/22 nifedipine 30 mg tablet,extended 30 mg PO DAILY 03/20/22 05/15/22 release nifedipine 30 mg tablet,extended 30 mg PO DAILY 03/20/22 release 24 hr omeprazole 20 mg capsule,delayed 20 mg PO BID 03/20/22 05/15/22 release ondansetron 4 mg disintegrating 2 mg PO Q6-8H PRN 03/20/22 05/15/22 tablet pantoprazole 40 mg tablet,delayed 40 mg PO BID 03/20/22 05/15/22 release promethazine 12.5 mg tablet 12.5 mg PO Q6-8H 03/20/22 sucralfate 1 gram tablet 1 g PO QID 03/20/22 tamsulosin 0.4 mg capsule 0.4 mg PO DAILY 03/20/22 aluminum-mag hydroxide-simethicone 20 ml PO QID PRN 05/15/22 05/15/22 400 mg-400 mg-40 mg/5 mL oral susp (Mintox Maximum Strength) Previous Rx's Medication Instructions Recorded metoclopramide HCl 10 mg tablet 10 mg PO Q6H PRN nausea and 02/18/21 (Reglan) vomiting #7 tabs valacyclovir 1 gram tablet 1,000 mg PO Q12H 10 days #20 tabs 02/24/21 dicyclomine 20 mg tablet 20 mg PO QID PRN abdominal pain 07/29/22 #12 tabs ondansetron 4 mg disintegrating 4 mg PO Q6-8H PRN nausea and 07/29/22 tablet vomiting #7 tabs prochlorperazine maleate 5 mg 5 mg PO BID PRN nausea and 08/20/22 tablet (Compazine) vomiting #10 tabs gabapentin 100 mg capsule 200 mg PO TID #180 caps 09/01/22 ondansetron 4 mg disintegrating 4 mg PO Q6-8H PRN nausea and 10/16/22 tablet vomiting #7 tabs Allergies Allergy/AdvReac Type Severity Reaction Status Date / Time amoxicillin Allergy Vomiting Verified 10/16/22 17:39 heparin Allergy Hives Verified 10/16/22 17:39 lamotrigine [From Lamictal] Allergy Hives Verified 10/16/22 17:39 levetiracetam [From Keppra] Allergy Hives Verified 10/16/22 17:39 Review of Systems Review of Systems: Positive head injury No nausea no vomiting Positive dizziness Yes all other systems are reviewed and are negative PMF Past Medical History Attestation statement: The following information was validated with the patient. Medical History Back pain Bipolar 1 disorder Neck pain PTSD (post-traumatic stress disorder) Seizure Seizure disorder Sleep disorder TBI (traumatic brain injury) Surgical History Hx of hernia repair Family History Family History Mother Cancer Family/Other No problems noted. Social History Social History Alcohol intake: former Patient Tobacco Use Status: Former Tobacco user Smoked in Last 30 Days: No Use of substances other than those prescribed or required for medical reasons: No Advance Directives: No Advance Directives Information Provided: No Physical Exam Vital Signs: Vital Signs: Last Vital Signs Temp 97.8 F 11/21/22 14:24 Pulse 76 11/21/22 16:05 Resp 13 11/21/22 16:05 BP 121/82 11/21/22 16:05 Pulse Ox 97 11/21/22 16:05 O2 Del Method Room Air 11/21/22 16:05 BMI result Body Mass Index 32.6 Appearance: Alert. Oriented X3. No acute distress. Eyes: Pupils equal, round and reactive to light. ENT: Pharynx normal. There is no midface tenderness. No malocclusion no Mix sign noted. Neck: Normal inspection. Neck supple. No lymph nodes noted. No crepitus. No posterior C-spine tenderness. C-collar left in place. CVS: Normal heart rate and rhythm. Pulses normal. Normal S1 and S2 Respiratory: No respiratory distress. Breath sounds normal. No Wheezing. No rales Abdomen: Soft and nontender. No rigidity. No distention. good BS x4 Skin: Skin warm and dry. Normal skin color. Normal skin turgor. Extremities: No lower extremity edema. Neurovascular intact to all extremities. No Lacerations. No Rash Neuro: Oriented X 3. No motor deficit. No sensory deficit. Moving all extermities. No slurred speech Medications Administered Discontinued Medications Generic Name Dose Route Start Last Admin Trade Name Freq PRN Reason Stop Dose Admin Sodium Chloride 1,000 mls @ 999 mls/hr 11/21/22 14:45 11/21/22 16:07 Ns IV 11/21/22 15:45 999 mls/hr .Q1H1M THALIA Administration Medical Decision Making Medical Decision Making MDM Narrative: Patient had a near syncopal episode. Hit his head. CT scan of the head and C-spine were negative. CT scan of the head showed no evidence of fracture. No evidence of bleed. CT scan of the C-spine was ordered secondary to nexus criteria. Patient had significant distracting injury. CT of the C-spine was negative for fracture no malalignment. An EKG was obtained. It showed a heart rate of 70, [place] QRS QT within normal limits there is LVH noted. The EKG is not changed from previous. Patient's troponin is negative. He is well-appearing. He is neurologically intact. His hemoglobin is 14.8 no evidence for anemia. His creatinine is normal. A L of fluid for possible dehydration was given. Patient's alcohol was negative. Troponin was negative. In no distress. Neurologically intact. CPK is 463 no evidence for rhabdo. No arrhythmia noted. Patient had lightheadedness then had the near syncopal episode. Question vasovagal. Will discharge patient home. Differential Diagnosis Differential Diagnoses: The differential diagnosis associated with the presentation includes Syncope, head injury, intracranial bleed, skull fracture, contusion, arrhythmia, anemia, electrolyte disturbance Lab Data MDM Lab Attestation statement: I reviewed the patient's lab results. 11/21/22 14:56 11/21/22 14:56 Labs: Lab Results 11/21/22 11/21/22 11/21/22 Range/Units 14:56 14:56 14:56 WBC 5.1 (4.8-10.8) X10*3/uL RBC 5.24 (4.60-5.80) X10*6/uL Hgb 14.8 (14.0-18.0) g/dl Hct 44.4 (42.0-52.0) % MCV 84.7 (80.0-98.0) fL MCH 28.2 (27.0-33.0) pg MCHC 33.3 (31.0-36.0) g/dl RDW 13.1 (11.0-16.0) % Plt Count 265 (160-400) X10*3/uL MPV 10.3 (9.4-12.4) fL Immature Gran % (Auto) 0.2 (0.0-0.4) % Neut % (Auto) 46.0 (45-73) % Lymph % (Auto) 36.3 (20-40) % [place] % (Auto) 10.8 (2-11) % Eos % (Auto) 5.1 H (0-4) % Baso % (Auto) 1.6 (0-2) % Lymph # (Auto) 1.9 (1.2-4.9) X10*3/uL [place] # (Auto) 0.6 (0.1-1.2) X10*3/uL Eos # (Auto) 0.3 (0.0-0.4) X10*3/uL Baso # (Auto) 0.1 (0.0-0.2) X10*3/uL Abs Immat Gran (auto) 0.01 (0.00-0.03) X10*3/uL Absolute Neuts (auto) 2.3 (2.0-8.3) x10*3/uL Absolute Nucleated RBC 0.000 (0.0-0.012) X10*3/uL Nucleated RBC % (auto) 0.0 (0.0-0.2) /100WBC Sodium 139 (135-145) mmol/L Potassium 4.0 (3.3-5.1) mmol/L Chloride 108 (96-108) mmol/L Carbon Dioxide 24 (22-29) mmol/L Anion Gap 11 L (12-20) BUN 16 (9-16) mg/dL Creatinine 0.79 (0.5-1.4) mg/dL Estim Creat Clear Calc 124.8 Estimated GFR > 60 Random Glucose 105 (60-115) mg/dL Calcium 9.0 (8.4-10.2) mg/dL Total Bilirubin 0.4 (0.0-1.0) mg/dL Direct Bilirubin 0.1 (0.0-0.5) mg/dL AST 40 H (5-37) U/L ALT 64 H (0-40) U/L Alkaline Phosphatase 108 (39-117) U/L Total Creatine Kinase 463 H (38-174) U/L Troponin I High Sens < 2.7 (<3.5-35.0) ng/L Total Protein 6.6 (6.5-8.0) g/dL Albumin 4.0 (3.5-5.0) g/dL Ethyl Alcohol < 10 mg/dL Independent Interpretation I performed an independent interpretation of an: EKG Interpretation: Sinus heart rate is 70 [place] QRS QT within normal limits there is LVH noted there is J-point elevation noted in the anterior leads not changed from previous Radiology Impression Discussion of test interpretation with radiology: I have reviewed the radiologist's reading. Radiologist Impression: CT scan head and C-spine negative Independent Historian Clinical information obtained from an independent historian. History obtained from or confirmed by: EMS External Record Review External record reviewed: Inpatient record Chronic Conditions Patient?s care impacted by: Hypertension Traumatic brain injury Discharge Plan Discharge Clinical Impression: Near syncope, Head injury Patient Disposition: Home, Self-Care Instructions: Near Syncope (ED), Head Injury (ED) Prescriptions: No Action valacyclovir 1 gram tablet 1,000 mg PO Q12H 10 Days Qty: 20 0RF metoclopramide HCl [Reglan] 10 mg tablet 10 mg PO Q6H PRN (Reason: nausea and vomiting) Qty: 7 0RF prochlorperazine maleate [Compazine] 5 mg tablet 5 mg PO BID PRN (Reason: nausea and vomiting) Qty: 10 0RF dicyclomine 20 mg tablet 20 mg PO QID PRN (Reason: abdominal pain) Qty: 12 0RF ondansetron 4 mg tablet,disintegrating 4 mg PO Q6-8H PRN (Reason: nausea and vomiting) Qty: 7 0RF gabapentin 100 mg capsule 200 mg PO TID Qty: 180 0RF ondansetron 4 mg tablet,disintegrating 4 mg PO Q6-8H PRN (Reason: nausea and vomiting) Qty: 7 0RF ondansetron 4 mg tablet,disintegrating 2 mg PO Q6-8H PRN promethazine 12.5 mg tablet 12.5 mg PO Q6-8H pantoprazole 40 mg tablet,delayed release (DR/EC) 40 mg PO BID sucralfate 1 gram tablet 1 g PO QID albuterol sulfate [ProAir HFA] 90 mcg/actuation HFA aerosol inhaler 0 mcg inhalation nifedipine 30 mg tablet extended release 30 mg PO DAILY aripiprazole 15 mg tablet 15 mg PO DAILY nifedipine 30 mg tablet extended release 24hr 30 mg PO DAILY gabapentin 400 mg capsule 400 mg PO TID omeprazole 20 mg capsule,delayed release(DR/EC) 20 mg PO BID tamsulosin 0.4 mg capsule 0.4 mg PO DAILY lidocaine 4 % cream topical diazepam 5 mg tablet 5 mg PO BID PRN alum-mag hydroxide-simeth [Mintox Maximum Strength] 400-400-40 mg/5 mL suspension 20 ml PO QID PRN Referrals: Physician,Unknown J [Primary Care Provider] - 11/25/22
[2022-11-21 15:00] LABS: MANUAL DIFF FLAG NO
[2022-11-21 15:03] LABS: Basophils Absolute Auto 0.1 X10*3/uL (0.0-0.2); Basophils Percent Auto 1.6 % (0-2); Eosinophils Absolute Auto 0.3 X10*3/uL (0.0-0.4); Eosinophils Percent Auto 5.1 % (0-4); Hematocrit 44.4 % (42.0-52.0); Hemoglobin 14.8 g/dl (14.0-18.0); Imm Gran Abs Auto 0.01 X10*3/uL (0.00-0.03); Imm Gran Pct Auto 0.2 % (0.0-0.4); Lymphocytes Absolute Auto 1.9 X10*3/uL (1.2-4.9); Lymphocytes Percent Auto 36.3 % (20-40); Mean Corpuscular HGB Conc 33.3 g/dl (31.0-36.0); Mean Corpuscular Hemoglobin 28.2 pg (27.0-33.0); Mean Corpuscular Volume 84.7 fL (80.0-98.0); Mean Platelet Volume 10.3 fL (9.4-12.4); Monocytes Absolute Auto 0.6 X10*3/uL (0.1-1.2); Monocytes Percent Auto 10.8 % (2-11); Neutrophils Absolute Auto 2.3 x10*3/uL (2.0-8.3); Platelet Count 265 X10*3/uL (160-400); Red Blood Count 5.24 X10*6/uL (4.60-5.80); Red Cell Distribution Width 13.1 % (11.0-16.0); White Blood Count 5.1 X10*3/uL (4.8-10.8)
[2022-11-21 15:29] LABS: Alanine Aminotransferase 64 U/L (0-40); Alkaline Phosphatase 108 U/L (39-117); Anion Gap 11 (12-20); Aspartate Amino Transferase 40 U/L (5-37); Bilirubin Direct 0.1 mg/dL (0.0-0.5); Bilirubin Total 0.4 mg/dL (0.0-1.0); Blood Urea Nitrogen 16 mg/dL (9-16); Carbon Dioxide 24 mmol/L (22-29); Chloride 108 mmol/L (96-108); Creatinine Clr Calc Pharmacy 124.8; Estimated Glomerular Filt Rate > 60; Ethanol < 10 mg/dL; Glucose Random 105 mg/dL (60-115); Sodium 139 mmol/L (135-145); Total Protein 6.6 g/dL (6.5-8.0)
[2022-11-21 15:34] LABS: Troponin-I High Sensitivity < 2.7 ng/L (<3.5-35.0)
[2022-11-21 16:05] VITALS: BP 121/82; PULSE 76; RESP 13; O2SAT 97
[2022-11-21] MEDS: 0.9 % Sodium Chloride 1,000 ML 999 ML IV (16:07)
[2022-11-21] MEDS: Ketorolac Tromethamine 30 MG/ML VIAL IVPUSH (16:25)
[2022-11-21 16:46] VITALS: BP 135/89; PULSE 74
[2022-11-21 16:47] VITALS: BP 141/100; PULSE 68
[2022-11-21 16:51] VITALS: BP 144/104; PULSE 78
[2022-11-21 17:12] VITALS: BP 120/83; PULSE 68; RESP 16
== END 2022-11-21 17:39 | disposition home or self-care (01) ==
PROVIDERS: Emergency Provider Emergency Medicine Emergency Medical Services
DX: R55 Syncope and collapse (principal); S09.90XA Unspecified injury of head, initial encounter; W01.198A Fall on same level from slipping, tripping and stumbling with subsequent striking against other object, initial encounter; Y93.E9 Activity, other interior property and clothing maintenance; Y92.038 Other place in apartment as the place of occurrence of the external cause; Y99.9 Unspecified external cause status; Z79.899 Other long term (current) drug therapy
CPT/HCPCS: 36415; 70450; 71045; 72125; 80048; 80076; 82077; 82550; 84484; 85025; 93005; 96361; 96374; 99284; 99285; J1885

== ENCOUNTER 2022-11-29 21:49 | Emergency (ER) | payer OTHER, SELFPAY ==
--- NOTE | ~2022-11-29 | XR_ITS ---
EXAMINATION: XR CHEST CLINICAL INFORMATION: 1 week of left-sided chest pain. COMPARISON: 11/21/2022 TECHNIQUE: 2 views of the chest were obtained. FINDINGS: Cardiac leads overlie the chest. The lungs are well expanded. There is no focal consolidation, edema, or effusion. No pneumothorax. The cardiomediastinal silhouette is within normal limits. No acute osseous abnormality. XR/XR chest 2V IMPRESSION: Clear lungs. Improvement of prior left basilar opacities.
[2022-11-29 21:56] VITALS: BP 130/86; BP 141/88; PULSE 80; PULSE 92; RESP 18; TEMP 36.2; O2SAT 96; O2SAT 98; BMI 25.0
--- NOTE | 2022-11-29 22:00 | ECG_ITS ---
Test Reason : CX PAIN Blood Pressure : / mmHG Vent. Rate : 072 BPM Atrial Rate : 072 BPM P-R Int : 160 ms QRS Dur : 082 ms QT Int : 396 ms P-R-T Axes : 013 -05 011 degrees QTc Int : 433 ms Normal sinus rhythm Minimal voltage criteria for LVH, may be normal variant ( R in aVL ) Borderline ECG When compared with ECG of 21-NOV-2022 14:46, No significant change was found Referred By: Generic ED Physician Electronically Signed By:Kerwin Lynn
[2022-11-29 22:24] LABS: MANUAL DIFF FLAG NO
[2022-11-29 22:25] LABS: Basophils Absolute Auto 0.1 X10*3/uL (0.0-0.2); Basophils Percent Auto 1.3 % (0-2); Eosinophils Absolute Auto 0.3 X10*3/uL (0.0-0.4); Eosinophils Percent Auto 4.6 % (0-4); Hematocrit 43.7 % (42.0-52.0); Hemoglobin 14.9 g/dl (14.0-18.0); Imm Gran Abs Auto 0.02 X10*3/uL (0.00-0.03); Imm Gran Pct Auto 0.3 % (0.0-0.4); Lymphocytes Absolute Auto 2.8 X10*3/uL (1.2-4.9); Lymphocytes Percent Auto 38.5 % (20-40); Mean Corpuscular HGB Conc 34.1 g/dl (31.0-36.0); Mean Corpuscular Hemoglobin 28.3 pg (27.0-33.0); Mean Corpuscular Volume 82.9 fL (80.0-98.0); Mean Platelet Volume 9.9 fL (9.4-12.4); Monocytes Absolute Auto 0.6 X10*3/uL (0.1-1.2); Monocytes Percent Auto 8.7 % (2-11); Neutrophils Absolute Auto 3.3 x10*3/uL (2.0-8.3); Neutrophils Percent Auto 46.6 % (45-73); Platelet Count 287 X10*3/uL (160-400); Red Blood Count 5.27 X10*6/uL (4.60-5.80); Red Cell Distribution Width 12.6 % (11.0-16.0); White Blood Count 7.2 X10*3/uL (4.8-10.8)
[2022-11-29 22:39] LABS: Anion Gap 11 (12-20); Blood Urea Nitrogen 17 mg/dL (9-16); Carbon Dioxide 24 mmol/L (22-29); Chloride 107 mmol/L (96-108); Creatinine Clr Calc Pharmacy 98.7; Estimated Glomerular Filt Rate > 60; Glucose Random 104 mg/dL (60-115); Potassium 3.6 mmol/L (3.3-5.1); Sodium 138 mmol/L (135-145)
[2022-11-29 22:47] LABS: Troponin-I High Sensitivity 3.5 ng/L (<3.5-35.0)
[2022-11-29 23:16] VITALS: BP 129/88; PULSE 70; RESP 18; TEMP 36.5; O2SAT 98
--- NOTE | 2022-11-29 23:16 | MHC.EDTECH ---
THIS PCT JUST ASSUMED CARE OF PT ,PT WAS HOOKED UP TO [facility] ,PT VITALS SIGN TAKEN .
[2022-11-29 23:18] VITALS: PULSE 70
--- NOTE | 2022-11-29 23:25 | ED_ITS ---
HPI - Chest Pain General Chief Complaint: Chest Pain Stated Complaint: chest palpatations Time Seen by Provider: 11/29/22 23:20 Source: patient Mode of arrival: ambulatory Limitations: no limitations History of Present Illness MD complaint: chest pain Onset (ago): week(s) (1) Timing of current episode: episodic Prior episodes: No Onset: during rest and other (when using CPAP at 8) Pain radiation: none Severity: moderate Quality: tightness Relieving factors: nothing Exacerbating factors: other (cpap) Context: other (cpap) Associated symptoms: nausea and vomiting Treatment prior to arrival: none Related Data Home Medications Medication Instructions Recorded Confirmed albuterol sulfate 90 mcg/actuation 0 mcg inhalation 03/20/22 05/15/22 aerosol inhaler (ProAir HFA) aripiprazole 15 mg tablet 15 mg PO DAILY 03/20/22 05/15/22 diazepam 5 mg tablet 5 mg PO BID PRN 03/20/22 05/15/22 gabapentin 400 mg capsule 400 mg PO TID 03/20/22 05/15/22 lidocaine 4 % topical cream g topical 03/20/22 05/15/22 nifedipine 30 mg tablet,extended 30 mg PO DAILY 03/20/22 05/15/22 release nifedipine 30 mg tablet,extended 30 mg PO DAILY 03/20/22 release 24 hr omeprazole 20 mg capsule,delayed 20 mg PO BID 03/20/22 05/15/22 release ondansetron 4 mg disintegrating 2 mg PO Q6-8H PRN 03/20/22 05/15/22 tablet pantoprazole 40 mg tablet,delayed 40 mg PO BID 03/20/22 05/15/22 release promethazine 12.5 mg tablet 12.5 mg PO Q6-8H 03/20/22 sucralfate 1 gram tablet 1 g PO QID 03/20/22 tamsulosin 0.4 mg capsule 0.4 mg PO DAILY 03/20/22 aluminum-mag hydroxide-simethicone 20 ml PO QID PRN 05/15/22 05/15/22 400 mg-400 mg-40 mg/5 mL oral susp (Mintox Maximum Strength) Previous Rx's Medication Instructions Recorded metoclopramide HCl 10 mg tablet 10 mg PO Q6H PRN nausea and 02/18/21 (Reglan) vomiting #7 tabs valacyclovir 1 gram tablet 1,000 mg PO Q12H 10 days #20 tabs 02/24/21 dicyclomine 20 mg tablet 20 mg PO QID PRN abdominal pain 07/29/22 #12 tabs ondansetron 4 mg disintegrating 4 mg PO Q6-8H PRN nausea and 07/29/22 tablet vomiting #7 tabs prochlorperazine maleate 5 mg 5 mg PO BID PRN nausea and 08/20/22 tablet (Compazine) vomiting #10 tabs gabapentin 100 mg capsule 200 mg PO TID #180 caps 09/01/22 ondansetron 4 mg disintegrating 4 mg PO Q6-8H PRN nausea and 10/16/22 tablet vomiting #7 tabs Allergies Allergy/AdvReac Type Severity Reaction Status Date / Time amoxicillin Allergy Vomiting Verified 10/16/22 17:39 heparin Allergy Hives Verified 10/16/22 17:39 lamotrigine [From Lamictal] Allergy Hives Verified 10/16/22 17:39 levetiracetam [From Keppra] Allergy Hives Verified 10/16/22 17:39 [facility] Past Medical History Medical History Back pain Bipolar 1 disorder Neck pain PTSD (post-traumatic stress disorder) Seizure Seizure disorder Sleep disorder TBI (traumatic brain injury) Surgical History Hx of hernia repair Family History Family History Mother Cancer Family/Other No problems noted. Social History Social History Alcohol intake: never Patient Tobacco Use Status: Former Tobacco user Smoked in Last 30 Days: No Use of substances other than those prescribed or required for medical reasons: No Physical Exam Vital Signs: Vital Signs: Last Vital Signs Temp 97.7 F 11/29/22 23:16 Pulse 70 11/29/22 23:16 Resp 18 11/29/22 23:16 BP 129/88 11/29/22 23:16 Pulse Ox 98 11/29/22 23:16 O2 Del Method Room Air 11/29/22 23:16 BMI result Body Mass Index 25.0 GEN: Well developed, no acute distress, alert, oriented HEENT: Normocephalic, atraumatic, normal external ears, nose appears normal, no oropharyngeal edema or exudates Eyes: Normal to appearance Neck: Supple, no lymphadenopathy Respiratory: Talks in complete sentences, no respiratory distress, clear to auscultation bilaterally Cardiovascular: Regular rate and rhythm, no murmurs rubs or gallops Abdomen: Soft, nontender, nondistended, no guarding, no rebound Back: No CVA tenderness Extremities: No clubbing cyanosis or edema Neurologic: No focal neurologic deficits, cranial nerves 2-12 intact, strength is 5/5 bilaterally Skin: No rash Course Course Course Narrative: 36-year-old male with chest pain. Chest pain started 1 week ago. It is worse when he uses CPAP. He is actually doing well on CPAP until they increased the setting to 8 mm. Examination is unremarkable. Will order chest x-ray. EKG is nonischemic but there is an isolated T-wave inversion in lead 3 which can be a normal variant. There is slight early repolarization in V2 and an RSR prime pattern in V1. Cardiac enzymes are negative. I am recommending to the patient that either he refrain from using CPAP or dial down the setting to 5 mm. Medical Decision Making Medical Decision Making [facility] Narrative: 36-year-old male presents with chest pain. Chest pain is only associated with CPAP. Better without the CPAP machine. This particularly associated with 8 mm versus 5 mm. His exam is unremarkable. EKG is nonischemic. Will order laboratory testing. I suspect his pain is noncardiac. Doubt PE, pneumothorax, hemothorax, pericarditis, myocarditis. This is more of an atypical pain. Does not appear to be musculoskeletal in nature. Differential Diagnosis Differential Diagnoses: The differential diagnosis associated with the presentation includes (Chest pain, atypical chest pain, PE, pneumothorax, hemothorax S) Atypical chest pain Admission/Observation Consideration of admission/observation: Escalation of care including admission/observation considered Lab Data [facility] Lab Attestation statement: I reviewed the patient's lab results. 11/29/22 22:16 11/29/22 22:16 Labs: Lab Results 11/29/22 11/29/22 11/29/22 Range/Units 22:15 22:16 22:16 WBC 7.2 (4.8-10.8) X10*3/uL RBC 5.27 (4.60-5.80) X10*6/uL Hgb 14.9 (14.0-18.0) g/dl Hct 43.7 (42.0-52.0) % MCV 82.9 (80.0-98.0) fL MCH 28.3 (27.0-33.0) pg MCHC 34.1 (31.0-36.0) g/dl RDW 12.6 (11.0-16.0) % Plt Count 287 (160-400) X10*3/uL MPV 9.9 (9.4-12.4) fL Immature Gran % (Auto) 0.3 (0.0-0.4) % Neut % (Auto) 46.6 (45-73) % Lymph % (Auto) 38.5 (20-40) % [place] % (Auto) 8.7 (2-11) % Eos % (Auto) 4.6 H (0-4) % Baso % (Auto) 1.3 (0-2) % Lymph # (Auto) 2.8 (1.2-4.9) X10*3/uL [place] # (Auto) 0.6 (0.1-1.2) X10*3/uL Eos # (Auto) 0.3 (0.0-0.4) X10*3/uL Baso # (Auto) 0.1 (0.0-0.2) X10*3/uL Abs Immat Gran (auto) 0.02 (0.00-0.03) X10*3/uL Absolute Neuts (auto) 3.3 (2.0-8.3) x10*3/uL Absolute Nucleated RBC 0.000 (0.0-0.012) X10*3/uL Nucleated RBC % (auto) 0.0 (0.0-0.2) /100WBC Sodium 138 (135-145) mmol/L Potassium 3.6 (3.3-5.1) mmol/L Chloride 107 (96-108) mmol/L Carbon Dioxide 24 (22-29) mmol/L Anion Gap 11 L (12-20) BUN 17 H (9-16) mg/dL Creatinine 1.01 (0.5-1.4) mg/dL Estim Creat Clear Calc 98.7 Estimated GFR > 60 Random Glucose 104 (60-115) mg/dL Calcium 9.0 (8.4-10.2) mg/dL Troponin I High Sens 3.5 (<3.5-35.0) ng/L Independent Interpretation I performed an independent interpretation of an: EKG (Normal sinus rhythm heart rate 72, RSR prime pattern in V1. T-wave inversion in lead 3, early repolarization in V2. No acute ischemic changes) and Plain X-Ray (No acute cardiopulmonary disease) Tests considered The following testing was considered but not selected: CT chest Prescription Management I considered prescription management with: Pain Medication Discharge Plan Discharge Clinical Impression: Atypical chest pain Patient Disposition: Home, Self-Care Instructions: Chest Pain (ED) Additional Instructions: Reduced her CPAP setting from 8 to 5 Prescriptions: No Action valacyclovir 1 gram tablet 1,000 mg PO Q12H 10 Days Qty: 20 0RF metoclopramide HCl [Reglan] 10 mg tablet 10 mg PO Q6H PRN (Reason: nausea and vomiting) Qty: 7 0RF prochlorperazine maleate [Compazine] 5 mg tablet 5 mg PO BID PRN (Reason: nausea and vomiting) Qty: 10 0RF dicyclomine 20 mg tablet 20 mg PO QID PRN (Reason: abdominal pain) Qty: 12 0RF ondansetron 4 mg tablet,disintegrating 4 mg PO Q6-8H PRN (Reason: nausea and vomiting) Qty: 7 0RF gabapentin 100 mg capsule 200 mg PO TID Qty: 180 0RF ondansetron 4 mg tablet,disintegrating 4 mg PO Q6-8H PRN (Reason: nausea and vomiting) Qty: 7 0RF ondansetron 4 mg tablet,disintegrating 2 mg PO Q6-8H PRN promethazine 12.5 mg tablet 12.5 mg PO Q6-8H pantoprazole 40 mg tablet,delayed release (DR/EC) 40 mg PO BID sucralfate 1 gram tablet 1 g PO QID albuterol sulfate [ProAir HFA] 90 mcg/actuation HFA aerosol inhaler 0 mcg inhalation nifedipine 30 mg tablet extended release 30 mg PO DAILY aripiprazole 15 mg tablet 15 mg PO DAILY nifedipine 30 mg tablet extended release 24hr 30 mg PO DAILY gabapentin 400 mg capsule 400 mg PO TID omeprazole 20 mg capsule,delayed release(DR/EC) 20 mg PO BID tamsulosin 0.4 mg capsule 0.4 mg PO DAILY lidocaine 4 % cream topical diazepam 5 mg tablet 5 mg PO BID PRN alum-mag hydroxide-simeth [Mintox Maximum Strength] 400-400-40 mg/5 mL suspension 20 ml PO QID PRN Referrals: [facility] [Provider Group]
== END 2022-11-30 00:10 | disposition home or self-care (01) ==
PROVIDERS: Emergency Provider Emergency Medicine
DX: R07.89 Other chest pain (principal); Z87.820 Personal history of traumatic brain injury; Z79.899 Other long term (current) drug therapy
CPT/HCPCS: 36415; 71046; 80048; 84484; 85025; 93005; 99284; 99285

== ENCOUNTER 2022-12-05 18:54 | Emergency (ER) | payer OTHER, SELFPAY ==
[2022-12-05 19:06] VITALS: BP 150/88; BP 160/100; PULSE 102; PULSE 88; RESP 20; O2SAT 97; BMI 31.8
[2022-12-05 19:20] LABS: MANUAL DIFF FLAG NO
[2022-12-05 19:22] LABS: Basophils Absolute Auto 0.1 X10*3/uL (0.0-0.2); Basophils Percent Auto 1.3 % (0-2); Eosinophils Absolute Auto 0.4 X10*3/uL (0.0-0.4); Eosinophils Percent Auto 5.3 % (0-4); Hematocrit 42.2 % (42.0-52.0); Hemoglobin 14.2 g/dl (14.0-18.0); Imm Gran Abs Auto 0.02 X10*3/uL (0.00-0.03); Imm Gran Pct Auto 0.3 % (0.0-0.4); Lymphocytes Absolute Auto 2.8 X10*3/uL (1.2-4.9); Lymphocytes Percent Auto 38.8 % (20-40); Mean Corpuscular HGB Conc 33.6 g/dl (31.0-36.0); Mean Corpuscular Hemoglobin 28.1 pg (27.0-33.0); Mean Corpuscular Volume 83.4 fL (80.0-98.0); Mean Platelet Volume 9.6 fL (9.4-12.4); Monocytes Absolute Auto 0.7 X10*3/uL (0.1-1.2); Neutrophils Absolute Auto 3.2 x10*3/uL (2.0-8.3); Neutrophils Percent Auto 44.3 % (45-73); Platelet Count 294 X10*3/uL (160-400); Red Blood Count 5.06 X10*6/uL (4.60-5.80); Red Cell Distribution Width 12.8 % (11.0-16.0); White Blood Count 7.2 X10*3/uL (4.8-10.8)
--- NOTE | 2022-12-05 19:32 | ED.NAVMDI ---
HPI - Nausea/Vomiting/Diarrhea General Chief complaint: Abdominal Pain Stated complaint: ABD PAIN Time Seen by Provider: 12/05/22 19:27 Source: patient Mode of arrival: ambulatory Limitations: no limitations History of Present Illness HPI Narrative: 36-year-old male lives alone presents emergency department after having nausea vomiting and diarrhea for the past day. He initially told triage for 3 days today he states he has been going through lots of toilet paper he has had at least 12 stools has been vomiting as well. Patient denies any fevers or chills denies any falls or injuries does have a history of seizure disorder as well as a history of atrial fibrillation he does not any palpitations at this time MD elicited complaint: nausea, vomiting, diarrhea and abdominal pain Related Data Home Medications Medication Instructions Recorded Confirmed albuterol sulfate 90 mcg/actuation 0 mcg inhalation 03/20/22 05/15/22 aerosol inhaler (ProAir HFA) aripiprazole 15 mg tablet 15 mg PO DAILY 03/20/22 05/15/22 diazepam 5 mg tablet 5 mg PO BID PRN 03/20/22 05/15/22 gabapentin 400 mg capsule 400 mg PO TID 03/20/22 05/15/22 lidocaine 4 % topical cream g topical 03/20/22 05/15/22 nifedipine 30 mg tablet,extended 30 mg PO DAILY 03/20/22 05/15/22 release nifedipine 30 mg tablet,extended 30 mg PO DAILY 03/20/22 release 24 hr omeprazole 20 mg capsule,delayed 20 mg PO BID 03/20/22 05/15/22 release ondansetron 4 mg disintegrating 2 mg PO Q6-8H PRN 03/20/22 05/15/22 tablet pantoprazole 40 mg tablet,delayed 40 mg PO BID 03/20/22 05/15/22 release promethazine 12.5 mg tablet 12.5 mg PO Q6-8H 03/20/22 sucralfate 1 gram tablet 1 g PO QID 03/20/22 tamsulosin 0.4 mg capsule 0.4 mg PO DAILY 03/20/22 aluminum-mag hydroxide-simethicone 20 ml PO QID PRN 05/15/22 05/15/22 400 mg-400 mg-40 mg/5 mL oral susp (Mintox Maximum Strength) Previous Rx's Medication Instructions Recorded metoclopramide HCl 10 mg tablet 10 mg PO Q6H PRN nausea and 02/18/21 (Reglan) vomiting #7 tabs valacyclovir 1 gram tablet 1,000 mg PO Q12H 10 days #20 tabs 02/24/21 dicyclomine 20 mg tablet 20 mg PO QID PRN abdominal pain 07/29/22 #12 tabs ondansetron 4 mg disintegrating 4 mg PO Q6-8H PRN nausea and 07/29/22 tablet vomiting #7 tabs prochlorperazine maleate 5 mg 5 mg PO BID PRN nausea and 08/20/22 tablet (Compazine) vomiting #10 tabs gabapentin 100 mg capsule 200 mg PO TID #180 caps 09/01/22 ondansetron 4 mg disintegrating 4 mg PO Q6-8H PRN nausea and 10/16/22 tablet vomiting #7 tabs ondansetron 4 mg disintegrating 4 mg PO Q6H #14 tabs 12/05/22 tablet Allergies Allergy/AdvReac Type Severity Reaction Status Date / Time amoxicillin Allergy Vomiting Verified 10/16/22 17:39 heparin Allergy Hives Verified 10/16/22 17:39 lamotrigine [From Lamictal] Allergy Hives Verified 10/16/22 17:39 levetiracetam [From Keppra] Allergy Hives Verified 10/16/22 17:39 Review of Systems Review of Systems: Review of systems: General: Patient denies any fever chills recent illness or falls Musculoskeletal: Denies back pain or body aches or other injuries HEENT: denies headache, runny nose, ear pain Respiratory: denies shortness of breath, cough Cardiovascular: no chest pain or palpitations : denies dysuria, frequency Abdomen: Diarrhea nausea vomiting denies abdominal pain Extremities: no swelling, no pain Skin: no diaphoresis Yes all other systems are reviewed and are negative PMFSH Past Medical History Medical History Back pain Bipolar 1 disorder Neck pain PTSD (post-traumatic stress disorder) Seizure Seizure disorder Sleep disorder TBI (traumatic brain injury) Surgical History Hx of hernia repair Family History Family History Mother Cancer Family/Other No problems noted. Social History Social History Alcohol intake: never Patient Tobacco Use Status: Former Tobacco user Smoked in Last 30 Days: No Use of substances other than those prescribed or required for medical reasons: No Advance Directives: No Advance Directives Information Provided: Yes Physical Exam Vital Signs: Vital Signs: Last Vital Signs Temp 98.8 F 12/05/22 19:55 Pulse 81 12/05/22 19:55 Resp 15 12/05/22 19:55 BP 146/86 H 12/05/22 19:55 Pulse Ox 97 12/05/22 19:55 O2 Del Method Room Air 12/05/22 19:55 BMI result Body Mass Index 31.8 General: Well-appearing well-nourished in no signs of distress HEENT: Normocephalic atraumatic Neck: No signs of JVD, no masses no tenderness or lymphadenopathy Cardiovascular: Regular rate and rhythm Respiratory: Clear to auscultation bilaterally Abdomen: Soft nontender no masses Extremities: Normal pedal pulses no signs of edema Skin: Dry warm no rashes Back: No tenderness full ROM Medications Administered Generic Name Dose Route Start Last Admin Trade Name Freq PRN Reason Stop Dose Admin Sodium Chloride 1,000 mls @ 999 mls/hr 12/05/22 19:45 12/05/22 19:53 Ns IV 12/05/22 20:45 999 mls/hr .Q1H1M THALIA Administration Discontinued Medications Generic Name Dose Route Start Last Admin Trade Name Freq PRN Reason Stop Dose Admin Famotidine 20 mg 12/05/22 19:45 12/05/22 19:53 Famotidine/Pf 20 Mg/2 Ml Vial IVPUSH 12/05/22 19:46 20 mg ONCE ONE Administration Ondansetron HCl 4 mg 12/05/22 19:31 12/05/22 19:53 Ondansetron Hcl 4 Mg/2 Ml Vial IVPUSH 12/05/22 19:32 4 mg ONCE ONE Administration Medical Decision Making Medical Decision Making MDM Narrative: Will give the patient fluids Zofran Patient sleeping in the room I did awake him and he is feeling much better i will send home with zofran. Differential Diagnosis Differential Diagnoses: The differential diagnosis associated with the presentation includes Acute surgical abdomen very unlikely as patient has benign testing is likely food poisoning or viral is causing his nausea vomiting and diarrhea. Patient again has a very bad Admission/Observation Consideration of admission/observation: Escalation of care including admission/observation considered None needed patient's labs are normal patient responded well to fluids and Zofran. Lab Data MDM Lab Attestation statement: I reviewed the patient's lab results. 12/05/22 19:17 12/05/22 19:17 Labs: Lab Results 12/05/22 12/05/22 Range/Units 19:17 19:17 WBC 7.2 (4.8-10.8) X10*3/uL RBC 5.06 (4.60-5.80) X10*6/uL Hgb 14.2 (14.0-18.0) g/dl Hct 42.2 (42.0-52.0) % MCV 83.4 (80.0-98.0) fL MCH 28.1 (27.0-33.0) pg MCHC 33.6 (31.0-36.0) g/dl RDW 12.8 (11.0-16.0) % Plt Count 294 (160-400) X10*3/uL MPV 9.6 (9.4-12.4) fL Immature Gran % (Auto) 0.3 (0.0-0.4) % Neut % (Auto) 44.3 L (45-73) % Lymph % (Auto) 38.8 (20-40) % [place] % (Auto) 10.0 (2-11) % Eos % (Auto) 5.3 H (0-4) % Baso % (Auto) 1.3 (0-2) % Lymph # (Auto) 2.8 (1.2-4.9) X10*3/uL [place] # (Auto) 0.7 (0.1-1.2) X10*3/uL Eos # (Auto) 0.4 (0.0-0.4) X10*3/uL Baso # (Auto) 0.1 (0.0-0.2) X10*3/uL Abs Immat Gran (auto) 0.02 (0.00-0.03) X10*3/uL Absolute Neuts (auto) 3.2 (2.0-8.3) x10*3/uL Absolute Nucleated RBC 0.000 (0.0-0.012) X10*3/uL Nucleated RBC % (auto) 0.0 (0.0-0.2) /100WBC Sodium 138 (135-145) mmol/L Potassium 3.5 (3.3-5.1) mmol/L Chloride 106 (96-108) mmol/L Carbon Dioxide 24 (22-29) mmol/L Anion Gap 12 (12-20) BUN 27 H (9-16) mg/dL Creatinine 1.04 (0.5-1.4) mg/dL Estim Creat Clear Calc 93.5 Estimated GFR > 60 Random Glucose 99 (60-115) mg/dL Calcium 8.8 (8.4-10.2) mg/dL Total Bilirubin 0.3 (0.0-1.0) mg/dL Direct Bilirubin 0.1 (0.0-0.5) mg/dL AST 36 (5-37) U/L ALT 48 H (0-40) U/L Alkaline Phosphatase 104 (39-117) U/L Total Protein 6.9 (6.5-8.0) g/dL Albumin 4.1 (3.5-5.0) g/dL External Record Review External record reviewed: Inpatient record, Outpatient record, Prior outpatient labs, Outside ED record and Other Discharge Plan Discharge Clinical Impression: Vomiting, Diarrhea Patient Disposition: Home, Self-Care Instructions: Acute Nausea and Vomiting (ED), Acute Diarrhea (ED) Additional Instructions: You were seen in Emergency Department today by Dr. Porter. You had labs fluids and Zofran. Your feeling much better at the time of discharge if you have any other further concerns please do not hesitate to come back to the emergency department. Prescriptions: New ondansetron 4 mg tablet,disintegrating 4 mg PO Q6H Qty: 14 0RF No Action valacyclovir 1 gram tablet 1,000 mg PO Q12H 10 Days Qty: 20 0RF metoclopramide HCl [Reglan] 10 mg tablet 10 mg PO Q6H PRN (Reason: nausea and vomiting) Qty: 7 0RF prochlorperazine maleate [Compazine] 5 mg tablet 5 mg PO BID PRN (Reason: nausea and vomiting) Qty: 10 0RF dicyclomine 20 mg tablet 20 mg PO QID PRN (Reason: abdominal pain) Qty: 12 0RF ondansetron 4 mg tablet,disintegrating 4 mg PO Q6-8H PRN (Reason: nausea and vomiting) Qty: 7 0RF gabapentin 100 mg capsule 200 mg PO TID Qty: 180 0RF ondansetron 4 mg tablet,disintegrating 4 mg PO Q6-8H PRN (Reason: nausea and vomiting) Qty: 7 0RF ondansetron 4 mg tablet,disintegrating 2 mg PO Q6-8H PRN promethazine 12.5 mg tablet 12.5 mg PO Q6-8H pantoprazole 40 mg tablet,delayed release (DR/EC) 40 mg PO BID sucralfate 1 gram tablet 1 g PO QID albuterol sulfate [ProAir HFA] 90 mcg/actuation HFA aerosol inhaler 0 mcg inhalation nifedipine 30 mg tablet extended release 30 mg PO DAILY aripiprazole 15 mg tablet 15 mg PO DAILY nifedipine 30 mg tablet extended release 24hr 30 mg PO DAILY gabapentin 400 mg capsule 400 mg PO TID omeprazole 20 mg capsule,delayed release(DR/EC) 20 mg PO BID tamsulosin 0.4 mg capsule 0.4 mg PO DAILY lidocaine 4 % cream topical diazepam 5 mg tablet 5 mg PO BID PRN alum-mag hydroxide-simeth [Mintox Maximum Strength] 400-400-40 mg/5 mL suspension 20 ml PO QID PRN
[2022-12-05 19:37] LABS: Alanine Aminotransferase 48 U/L (0-40); Albumin Level 4.1 g/dL (3.5-5.0); Alkaline Phosphatase 104 U/L (39-117); Anion Gap 12 (12-20); Aspartate Amino Transferase 36 U/L (5-37); Bilirubin Direct 0.1 mg/dL (0.0-0.5); Bilirubin Total 0.3 mg/dL (0.0-1.0); Blood Urea Nitrogen 27 mg/dL (9-16); Calcium 8.8 mg/dL (8.4-10.2); Carbon Dioxide 24 mmol/L (22-29); Chloride 106 mmol/L (96-108); Creatinine Clr Calc Pharmacy 93.5; Estimated Glomerular Filt Rate > 60; Glucose Random 99 mg/dL (60-115); Potassium 3.5 mmol/L (3.3-5.1); Sodium 138 mmol/L (135-145); Total Protein 6.9 g/dL (6.5-8.0)
[2022-12-05] MEDS: 0.9 % Sodium Chloride 1,000 ML 999 ML IV (19:53)
[2022-12-05] MEDS: Famotidine/PF 20 MG/2 ML VIAL IVPUSH (19:53)
[2022-12-05] MEDS: ondansetron HCL 4 MG/2 ML VIAL IVPUSH (19:53)
[2022-12-05 19:55] VITALS: BP 146/86; PULSE 81; RESP 15; TEMP 37.1; O2SAT 97
== END 2022-12-05 21:14 | disposition home or self-care (01) ==
PROVIDERS: Emergency Provider Student in an Organized Health Care Education/Training Program
DX: R11.2 Nausea with vomiting, unspecified (principal); R19.7 Diarrhea, unspecified; Z87.820 Personal history of traumatic brain injury; Z79.899 Other long term (current) drug therapy
CPT/HCPCS: 36415; 80053; 82248; 85025; 96361; 96374; 96375; 99284; J2405

== ENCOUNTER 2022-12-11 20:48 | Emergency (ER) | payer OTHER, SELFPAY ==
[2022-12-11 20:53] VITALS: BP 150/94; PULSE 75; O2SAT 97
[2022-12-11 20:54] VITALS: BP 137/90; PULSE 86; RESP 20; TEMP 36.8; O2SAT 97; BMI 29.2
[2022-12-11 21:06] VITALS: BP 143/94; PULSE 74; RESP 18; TEMP 36.8; O2SAT 97
[2022-12-11 21:07] LABS: MANUAL DIFF FLAG NO
[2022-12-11 21:11] LABS: Basophils Absolute Auto 0.1 X10*3/uL (0.0-0.2); Eosinophils Absolute Auto 0.4 X10*3/uL (0.0-0.4); Eosinophils Percent Auto 4.9 % (0-4); Hematocrit 43.6 % (42.0-52.0); Hemoglobin 14.8 g/dl (14.0-18.0); Imm Gran Abs Auto 0.02 X10*3/uL (0.00-0.03); Imm Gran Pct Auto 0.3 % (0.0-0.4); Lymphocytes Percent Auto 41.4 % (20-40); Mean Corpuscular HGB Conc 33.9 g/dl (31.0-36.0); Mean Corpuscular Hemoglobin 28.4 pg (27.0-33.0); Mean Corpuscular Volume 83.7 fL (80.0-98.0); Mean Platelet Volume 10.1 fL (9.4-12.4); Monocytes Absolute Auto 0.7 X10*3/uL (0.1-1.2); Monocytes Percent Auto 8.8 % (2-11); Neutrophils Absolute Auto 3.2 x10*3/uL (2.0-8.3); Neutrophils Percent Auto 43.6 % (45-73); Platelet Count 291 X10*3/uL (160-400); Red Blood Count 5.21 X10*6/uL (4.60-5.80); White Blood Count 7.4 X10*3/uL (4.8-10.8)
[2022-12-11 21:25] LABS: Appearance Urine Clear; Color Urine Yellow; Glucose Urine UA Negative (Negative); Leukocyte Esterase Urine Negative (Negative); Nitrite Urine Negative (Negative); PH 6.5 (5.0-9.0); Urine Blood Negative (Negative); Urine Ketones Negative (Negative); Urine Protein Negative (Neg-Trace)
--- NOTE | 2022-12-11 21:55 | ED.ABDPAIN ---
HPI - Abdominal Pain General Chief Complaint: Abdominal Pain Stated Complaint: abdominal pain Time Seen by Provider: 12/11/22 21:26 Source: patient Mode of arrival: ambulatory Limitations: no limitations History of Present Illness HPI narrative: Patient with bipolar disorder PTSD TBI been here multiple times for nonspecific abdominal pain which is going on for years with history of gastritis says admitting having diarrhea multiple times Related Data Home Medications Medication Instructions Recorded Confirmed albuterol sulfate 90 mcg/actuation 0 mcg inhalation 03/20/22 05/15/22 aerosol inhaler (ProAir HFA) aripiprazole 15 mg tablet 15 mg PO DAILY 03/20/22 05/15/22 diazepam 5 mg tablet 5 mg PO BID PRN 03/20/22 05/15/22 gabapentin 400 mg capsule 400 mg PO TID 03/20/22 05/15/22 lidocaine 4 % topical cream g topical 03/20/22 05/15/22 nifedipine 30 mg tablet,extended 30 mg PO DAILY 03/20/22 05/15/22 release nifedipine 30 mg tablet,extended 30 mg PO DAILY 03/20/22 release 24 hr omeprazole 20 mg capsule,delayed 20 mg PO BID 03/20/22 05/15/22 release ondansetron 4 mg disintegrating 2 mg PO Q6-8H PRN 03/20/22 05/15/22 tablet pantoprazole 40 mg tablet,delayed 40 mg PO BID 03/20/22 05/15/22 release promethazine 12.5 mg tablet 12.5 mg PO Q6-8H 03/20/22 sucralfate 1 gram tablet 1 g PO QID 03/20/22 tamsulosin 0.4 mg capsule 0.4 mg PO DAILY 03/20/22 aluminum-mag hydroxide-simethicone 20 ml PO QID PRN 05/15/22 05/15/22 400 mg-400 mg-40 mg/5 mL oral susp (Mintox Maximum Strength) Previous Rx's Medication Instructions Recorded metoclopramide HCl 10 mg tablet 10 mg PO Q6H PRN nausea and 02/18/21 (Reglan) vomiting #7 tabs valacyclovir 1 gram tablet 1,000 mg PO Q12H 10 days #20 tabs 02/24/21 dicyclomine 20 mg tablet 20 mg PO QID PRN abdominal pain 07/29/22 #12 tabs ondansetron 4 mg disintegrating 4 mg PO Q6-8H PRN nausea and 07/29/22 tablet vomiting #7 tabs prochlorperazine maleate 5 mg 5 mg PO BID PRN nausea and 08/20/22 tablet (Compazine) vomiting #10 tabs gabapentin 100 mg capsule 200 mg PO TID #180 caps 09/01/22 ondansetron 4 mg disintegrating 4 mg PO Q6-8H PRN nausea and 10/16/22 tablet vomiting #7 tabs ondansetron 4 mg disintegrating 4 mg PO Q6H #14 tabs 12/05/22 tablet sucralfate 1 gram tablet 1 g PO BID #60 tabs 12/11/22 Allergies Allergy/AdvReac Type Severity Reaction Status Date / Time amoxicillin Allergy Vomiting Verified 12/11/22 20:54 heparin Allergy Hives Verified 12/11/22 20:54 lamotrigine [From Lamictal] Allergy Hives Verified 12/11/22 20:54 levetiracetam [From Keppra] Allergy Hives Verified 12/11/22 20:54 Review of Systems Review of Systems Yes all other systems are reviewed and are negative PMF Past Medical History Medical History Back pain Bipolar 1 disorder Neck pain PTSD (post-traumatic stress disorder) Seizure Seizure disorder Sleep disorder TBI (traumatic brain injury) Surgical History Hx of hernia repair Family History Family History Mother Cancer Family/Other No problems noted. Social History Social History Alcohol intake: former Patient Tobacco Use Status: Former Tobacco user Smoked in Last 30 Days: No Use of substances other than those prescribed or required for medical reasons: No Advance Directives: No Advance Directives Information Provided: Yes Physical Exam ED Vital Signs: Vital Signs - 24 hr 12/11/22 20:54 12/11/22 21:06 Temperature 98.3 F 98.3 F Pulse Rate 86 74 Respiratory Rate 20 18 Blood Pressure 137/90 H 143/94 H Pulse Oximetry 97 97 Oxygen Delivery Method Room Air Room Air BMI result Body Mass Index 29.2 Appearance: Alert. Oriented X3. No acute distress. Eyes: No pallor or icterus ENT: Pharynx normal. Oral Mucosa moist Neck: Normal inspection. Neck supple. CVS: Normal heart rate and rhythm. Pulses normal. Respiratory: No respiratory distress. Equal air entry bilateral, no wheezing/rales/rhonchi Abdomen: Soft , mild epigastric tenderness. Bowel sounds are present, no mass palpable, no CVA tenderness Skin: Skin warm and dry. Normal skin color. Normal skin turgor. Extremities: No lower extremity edema. No calf tenderness Neuro: Oriented X 3. Medical Decision Making Medical Decision Making [facility] Narrative: Patient nonspecific complaints patient multiple times for similar complaints workup negative for acute pathology discharge patient home advised to take Protonix Lab Data [facility] Lab Attestation statement: I reviewed the patient's lab results. 12/11/22 21:02 12/11/22 21:02 Labs: Lab Results 12/11/22 12/11/22 12/11/22 Range/Units 21:02 21:15 22:29 WBC 7.4 (4.8-10.8) X10*3/uL RBC 5.21 (4.60-5.80) X10*6/uL Hgb 14.8 (14.0-18.0) g/dl Hct 43.6 (42.0-52.0) % MCV 83.7 (80.0-98.0) fL MCH 28.4 (27.0-33.0) pg MCHC 33.9 (31.0-36.0) g/dl RDW 13.0 (11.0-16.0) % Plt Count 291 (160-400) X10*3/uL MPV 10.1 (9.4-12.4) fL Immature Gran % (Auto) 0.3 (0.0-0.4) % Neut % (Auto) 43.6 L (45-73) % Lymph % (Auto) 41.4 H (20-40) % [place] % (Auto) 8.8 (2-11) % Eos % (Auto) 4.9 H (0-4) % Baso % (Auto) 1.0 (0-2) % Lymph # (Auto) 3.0 (1.2-4.9) X10*3/uL [place] # (Auto) 0.7 (0.1-1.2) X10*3/uL Eos # (Auto) 0.4 (0.0-0.4) X10*3/uL Baso # (Auto) 0.1 (0.0-0.2) X10*3/uL Abs Immat Gran (auto) 0.02 (0.00-0.03) X10*3/uL Absolute Neuts (auto) 3.2 (2.0-8.3) x10*3/uL Absolute Nucleated RBC 0.000 (0.0-0.012) X10*3/uL Nucleated RBC % (auto) 0.0 (0.0-0.2) /100WBC Sodium 141 (135-145) mmol/L Potassium 3.6 (3.3-5.1) mmol/L Chloride 108 (96-108) mmol/L Carbon Dioxide 26 (22-29) mmol/L Anion Gap 11 L (12-20) BUN 20 H (9-16) mg/dL Creatinine 0.81 (0.5-1.4) mg/dL Estim Creat Clear Calc 115.3 Estimated GFR > 60 Random Glucose 103 (60-115) mg/dL Calcium 9.1 (8.4-10.2) mg/dL Total Bilirubin 0.3 (0.0-1.0) mg/dL Direct Bilirubin 0.1 (0.0-0.5) mg/dL AST 38 H (5-37) U/L ALT 53 H (0-40) U/L Alkaline Phosphatase 105 (39-117) U/L Total Protein 6.5 (6.5-8.0) g/dL Albumin 3.8 (3.5-5.0) g/dL Lipase 21 (8-78) U/L Urine Color Yellow Urine Appearance Clear Urine pH 6.5 (5.0-9.0) Ur Specific [place] 1.020 (1.005-1.025) Urine Protein Negative (Neg-Trace) mg/dL Urine Glucose (UA) Negative (Negative) mg/dL Urine Ketones Negative (Negative) mg/dL Urine Blood Negative (Negative) Urine Nitrite Negative (Negative) Ur Leukocyte Esterase Negative (Negative) Medications Administered Discontinued Medications Generic Name Dose Route Start Last Admin Trade Name Freq PRN Reason Stop Dose Admin Al Hydroxide/Mg Hydroxide 30 ml 12/11/22 22:00 12/11/22 22:08 Magnesium Hydrox/Alum Hydrox 30 Ml Oral.Susp PO 12/11/22 22:01 30 ml ONCE ONE Administration Lidocaine HCl 15 ml 12/11/22 22:00 12/11/22 22:08 Lidocaine Hcl Viscous 2 % 15 Ml Solution MUCOUS MEM 12/11/22 22:01 15 ml ONCE ONE Administration Omeprazole 40 mg 12/11/22 22:01 12/11/22 22:08 Omeprazole 40 Mg Capsule.Dr PO 12/11/22 22:02 40 mg ONCE ONE Administration Discharge Plan Discharge Clinical Impression: Chronic gastritis Patient Disposition: Home, Self-Care Instructions: Gastritis (ED) Additional Instructions: Drink plenty of fluids Avoid fried and spicy food Continue your Protonix Take sucralfate before meals as prescribed Prescriptions: New sucralfate 1 gram tablet 1 g PO BID Qty: 60 0RF No Action valacyclovir 1 gram tablet 1,000 mg PO Q12H 10 Days Qty: 20 0RF metoclopramide HCl [Reglan] 10 mg tablet 10 mg PO Q6H PRN (Reason: nausea and vomiting) Qty: 7 0RF prochlorperazine maleate [Compazine] 5 mg tablet 5 mg PO BID PRN (Reason: nausea and vomiting) Qty: 10 0RF dicyclomine 20 mg tablet 20 mg PO QID PRN (Reason: abdominal pain) Qty: 12 0RF ondansetron 4 mg tablet,disintegrating 4 mg PO Q6-8H PRN (Reason: nausea and vomiting) Qty: 7 0RF gabapentin 100 mg capsule 200 mg PO TID Qty: 180 0RF ondansetron 4 mg tablet,disintegrating 4 mg PO Q6-8H PRN (Reason: nausea and vomiting) Qty: 7 0RF ondansetron 4 mg tablet,disintegrating 4 mg PO Q6H Qty: 14 0RF ondansetron 4 mg tablet,disintegrating 2 mg PO Q6-8H PRN promethazine 12.5 mg tablet 12.5 mg PO Q6-8H pantoprazole 40 mg tablet,delayed release (DR/EC) 40 mg PO BID sucralfate 1 gram tablet 1 g PO QID albuterol sulfate [ProAir HFA] 90 mcg/actuation HFA aerosol inhaler 0 mcg inhalation nifedipine 30 mg tablet extended release 30 mg PO DAILY aripiprazole 15 mg tablet 15 mg PO DAILY nifedipine 30 mg tablet extended release 24hr 30 mg PO DAILY gabapentin 400 mg capsule 400 mg PO TID omeprazole 20 mg capsule,delayed release(DR/EC) 20 mg PO BID tamsulosin 0.4 mg capsule 0.4 mg PO DAILY lidocaine 4 % cream topical diazepam 5 mg tablet 5 mg PO BID PRN alum-mag hydroxide-simeth [Mintox Maximum Strength] 400-400-40 mg/5 mL suspension 20 ml PO QID PRN Interventions: ED Discharge Assessment Last Done: 12/11/22 23:29 Discharge Date/Time: 12/11/22 23:34
[2022-12-11] MEDS: Omeprazole 40 MG CAPSULE.DR PO (22:08)
[2022-12-11] MEDS: Lidocaine HCl Viscous 2 % 15 ML SOLUTION MUCOUS MEM (22:08)
[2022-12-11] MEDS: Magnesium Hydrox/Alum Hydrox 30 ML ORAL.SUSP PO (22:08)
[2022-12-11 22:48] LABS: Anion Gap 11 (12-20)
[2022-12-11 22:53] LABS: Alanine Aminotransferase 53 U/L (0-40); Albumin Level 3.8 g/dL (3.5-5.0); Alkaline Phosphatase 105 U/L (39-117); Aspartate Amino Transferase 38 U/L (5-37); Bilirubin Direct 0.1 mg/dL (0.0-0.5); Bilirubin Total 0.3 mg/dL (0.0-1.0); Blood Urea Nitrogen 20 mg/dL (9-16); Calcium 9.1 mg/dL (8.4-10.2); Carbon Dioxide 26 mmol/L (22-29); Chloride 108 mmol/L (96-108); Creatinine Clr Calc Pharmacy 115.3; Estimated Glomerular Filt Rate > 60; Glucose Random 103 mg/dL (60-115); Lipase 21 U/L (8-78); Potassium 3.6 mmol/L (3.3-5.1); Sodium 141 mmol/L (135-145); Total Protein 6.5 g/dL (6.5-8.0)
--- NOTE | 2022-12-11 23:01 | PC.NURSE ---
Patient alert and oriented x3. Reports abdominal pain and N/V/D. Area distended, rounded and tender. IV placed in right forearm. Labs drawn. Patient medicated per MAR. Call sherman in within reach. Will continue to follow plan of care.
== END 2022-12-11 23:34 | disposition home or self-care (01) ==
PROVIDERS: Emergency Provider Internal Medicine
DX: K29.50 Unspecified chronic gastritis without bleeding (principal); R10.9 Unspecified abdominal pain; Z87.820 Personal history of traumatic brain injury; Z79.899 Other long term (current) drug therapy
CPT/HCPCS: 36415; 80048; 80076; 81003; 83690; 85025; 99283; 99284

== ENCOUNTER 2022-12-17 20:58 | Emergency (ER) | payer OTHER, SELFPAY ==
[2022-12-17 21:04] VITALS: BP 140/107; BP 154/96; PULSE 91; PULSE 95; RESP 20; TEMP 36.9; O2SAT 97; O2SAT 98; BMI 29.2
[2022-12-17 21:31] LABS: MANUAL DIFF FLAG NO
[2022-12-17 21:46] LABS: Basophils Absolute Auto 0.1 X10*3/uL (0.0-0.2); Eosinophils Absolute Auto 0.2 X10*3/uL (0.0-0.4); Eosinophils Percent Auto 2.7 % (0-4); Hematocrit 42.4 % (42.0-52.0); Hemoglobin 14.4 g/dl (14.0-18.0); Imm Gran Abs Auto 0.02 X10*3/uL (0.00-0.03); Imm Gran Pct Auto 0.3 % (0.0-0.4); Lymphocytes Absolute Auto 2.1 X10*3/uL (1.2-4.9); Lymphocytes Percent Auto 28.5 % (20-40); Mean Corpuscular Hemoglobin 28.2 pg (27.0-33.0); Mean Corpuscular Volume 83.1 fL (80.0-98.0); Mean Platelet Volume 9.6 fL (9.4-12.4); Monocytes Absolute Auto 0.6 X10*3/uL (0.1-1.2); Monocytes Percent Auto 8.2 % (2-11); Neutrophils Absolute Auto 4.3 x10*3/uL (2.0-8.3); Neutrophils Percent Auto 59.3 % (45-73); Platelet Count 308 X10*3/uL (160-400); White Blood Count 7.3 X10*3/uL (4.8-10.8)
[2022-12-17 21:52] LABS: Alanine Aminotransferase 65 U/L (0-40); Albumin Level 4.3 g/dL (3.5-5.0); Alkaline Phosphatase 116 U/L (39-117); Aspartate Amino Transferase 53 U/L (5-37); Bilirubin Direct 0.1 mg/dL (0.0-0.5); Bilirubin Total 0.6 mg/dL (0.0-1.0); Total Protein 7.2 g/dL (6.5-8.0)
[2022-12-17 21:53] LABS: Alanine Aminotransferase 65 U/L (0-40); Albumin Level 4.3 g/dL (3.5-5.0); Alkaline Phosphatase 117 U/L (39-117); Anion Gap 13 (12-20); Aspartate Amino Transferase 53 U/L (5-37); Bilirubin Total 0.6 mg/dL (0.0-1.0); Blood Urea Nitrogen 12 mg/dL (9-16); Calcium 9.4 mg/dL (8.4-10.2); Carbon Dioxide 24 mmol/L (22-29); Chloride 104 mmol/L (96-108); Creatinine Clr Calc Pharmacy 116.8; Estimated Glomerular Filt Rate > 60; Glucose Random 116 mg/dL (60-115); Potassium 3.2 mmol/L (3.3-5.1); Sodium 138 mmol/L (135-145); Total Protein 7.3 g/dL (6.5-8.0)
[2022-12-17 23:47] VITALS: BP 124/66; PULSE 71; RESP 16; TEMP 36.8; O2SAT 96
[2022-12-17 23:51] LABS: Appearance Urine Clear; Color Urine Yellow; Glucose Urine UA Negative (Negative); Leukocyte Esterase Urine Negative (Negative); Nitrite Urine Negative (Negative); Specific Gravity - Urine 1.025 (1.005-1.025); Urine Blood Negative (Negative); Urine Ketones Negative (Negative); Urine Protein Negative (Neg-Trace)
--- NOTE | 2022-12-18 01:16 | ED_ITS ---
HPI - Abdominal Pain General Chief Complaint: Abdominal Pain Stated Complaint: abdominal pain Time Seen by Provider: 12/18/22 01:01 Source: patient Mode of arrival: EMS Limitations: no limitations History of Present Illness HPI narrative: 36-year-old man who presents emergency department for evaluation abdominal pain, nausea, vomiting diarrhea. The patient states that he has chronic stomach pain caused by too much acid in the stomach. He states that over the past 2 weeks he has been having pain in his abdomen he points to just above his umbilical area and his epigastric area when asked to localize the pain. States the pain is intermittent. He describes the pain is a burning sensation he states that makes his abdomen feels ?hard as a rock ?. He states that [place] when he had a sudden onset of pain. He had nausea and 1 episode of vomiting. He states that he also had 30 minutes black diarrhea with no blood in the diarrhea. Patient states that he was at [facility] 2 weeks ago with similar presentation and had a negative CT scan of the abdomen and negative ultrasound. Related Data Home Medications Medication Instructions Recorded Confirmed albuterol sulfate 90 mcg/actuation 0 mcg inhalation 03/20/22 05/15/22 aerosol inhaler (ProAir HFA) aripiprazole 15 mg tablet 15 mg PO DAILY 03/20/22 05/15/22 diazepam 5 mg tablet 5 mg PO BID PRN 03/20/22 05/15/22 gabapentin 400 mg capsule 400 mg PO TID 03/20/22 05/15/22 lidocaine 4 % topical cream g topical 03/20/22 05/15/22 nifedipine 30 mg tablet,extended 30 mg PO DAILY 03/20/22 05/15/22 release nifedipine 30 mg tablet,extended 30 mg PO DAILY 03/20/22 release 24 hr omeprazole 20 mg capsule,delayed 20 mg PO BID 03/20/22 05/15/22 release ondansetron 4 mg disintegrating 2 mg PO Q6-8H PRN 03/20/22 05/15/22 tablet pantoprazole 40 mg tablet,delayed 40 mg PO BID 03/20/22 05/15/22 release promethazine 12.5 mg tablet 12.5 mg PO Q6-8H 03/20/22 sucralfate 1 gram tablet 1 g PO QID 03/20/22 tamsulosin 0.4 mg capsule 0.4 mg PO DAILY 03/20/22 aluminum-mag hydroxide-simethicone 20 ml PO QID PRN 05/15/22 05/15/22 400 mg-400 mg-40 mg/5 mL oral susp (Mintox Maximum Strength) Previous Rx's Medication Instructions Recorded metoclopramide HCl 10 mg tablet 10 mg PO Q6H PRN nausea and 02/18/21 (Reglan) vomiting #7 tabs valacyclovir 1 gram tablet 1,000 mg PO Q12H 10 days #20 tabs 02/24/21 dicyclomine 20 mg tablet 20 mg PO QID PRN abdominal pain 07/29/22 #12 tabs ondansetron 4 mg disintegrating 4 mg PO Q6-8H PRN nausea and 07/29/22 tablet vomiting #7 tabs prochlorperazine maleate 5 mg 5 mg PO BID PRN nausea and 08/20/22 tablet (Compazine) vomiting #10 tabs gabapentin 100 mg capsule 200 mg PO TID #180 caps 09/01/22 ondansetron 4 mg disintegrating 4 mg PO Q6-8H PRN nausea and 10/16/22 tablet vomiting #7 tabs ondansetron 4 mg disintegrating 4 mg PO Q6H #14 tabs 12/05/22 tablet sucralfate 1 gram tablet 1 g PO BID #60 tabs 12/11/22 aluminum hydrox-magnesium carb 254 10 ml PO QID PRN dyspepsia #355 mL 12/18/22 mg-237.5 mg/5 mL oral suspension (Gaviscon Extra Strength) Allergies Allergy/AdvReac Type Severity Reaction Status Date / Time amoxicillin Allergy Vomiting Verified 12/11/22 20:54 heparin Allergy Hives Verified 12/11/22 20:54 lamotrigine [From Lamictal] Allergy Hives Verified 12/11/22 20:54 levetiracetam [From Keppra] Allergy Hives Verified 12/11/22 20:54 Review of Systems Review of Systems Yes all other systems are reviewed and are negative [facility] Past Medical History [facility] Narrative: Social history: He denies tobacco use. 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 He denies drug use. Medical History Back pain Bipolar 1 disorder Neck pain PTSD (post-traumatic stress disorder) Seizure Seizure disorder Sleep disorder TBI (traumatic brain injury) Surgical History Hx of hernia repair Family History Family History Mother Cancer Family/Other No problems noted. Social History Social History Alcohol intake: former Patient Tobacco Use Status: Former Tobacco user Advance Directives: No Advance Directives Information Provided: No Physical Exam ED Vital Signs: Vital Signs - 24 hr 12/17/22 21:04 12/17/22 23:47 Temperature 98.5 F 98.3 F Pulse Rate 95 71 Respiratory Rate 20 16 Blood Pressure 140/107 H 124/66 Pulse Oximetry 97 96 Oxygen Delivery Method Room Air BMI result Body Mass Index 29.2 Const General: cooperative and no acute distress Orientation/consciousness: oriented to person and oriented to place Limitations: no limitations HENMT Head: Yes normal to inspection, Yes normocephalic and Yes atraumatic Ears: external ears normal General nose exam: Normal external nose present Face and sinus: Yes normal facial exam Mouth: Normal oral and palatal mucosa present Throat: Yes posterior oropharynx normal Eyes General: appearance normal, both eyes and all related structures Pupils: Equal, round and reactive pupils present Neck Neck: Yes normal visual inspection, Yes no lymphadenopathy, Yes trachea midline and Yes supple Chest Chest palpation & inspection: normal inspection of the chest and normal palpation of entire chest wall Resp Effort & Inspection: normal respiratory effort and able to speak in complete sentences Auscultation: clear to auscultation bilaterally Cardio Rate: regular rate Rhythm: regular rhythm Heart sounds: S1 normal heart sound present, S2 normal heart sound present and no murmurs GI Inspection: Yes normal to inspection Palpation (GI): Soft to palpation, Tenderness to palpation present (GI) in the epigastrum ([id number]) and no guarding Auscultation: normal bowel sounds General: Yes no CVA tenderness Back/Spine/Pelvis Back: no CVA tenderness Skin General skin exam: no rashes or lesions noted Neuro General: oriented to person and oriented to place Cranial nerves: Yes CN's II-XII intact bilaterally and Yes Equal, round and reactive pupils present Cognition (Neuro): normal cognition Motor exam (neuro): 5/5 motor strength present throughout Extrem General: Yes normal to inspection Psych Appearance: grossly normal Speech and movement: Normal speech and movement present Affect: normal affect Attitude: cooperative Thought process: Normal thought process present Thought content: Normal thought content present Medical Decision Making Medical Decision Making [facility] Narrative: 36-year-old male with a history of gastritis who presents emergency department for evaluation of intermittent epigastric pain x2 weeks with increased pain p rior to coming to the emergency department. And associated nausea and vomiting and diarrhea. Patient has similar symptoms in the past and he states that 2 weeks ago he was seen at [facility] and had a negative CT scan and ultrasound. Patient states that he is taking Pepcid for his gastritis. Physical examination did reveal epigastric tenderness. 0129: Laboratory evaluation interpreted by me as follows: CBC was normal. Potassium low 3.2. Glucose elevated 116. AST and ALT elevated 53 and 65- chronic. Patient's presentation is consistent with gastritis. Patient was advised to continue taking his medications. Patient was prescribed extra-strength Gaviscon 10 mL 4 times a day as needed for abdominal pain. Differential Diagnosis Differential diagnosis includes but is not limited to gastritis, pancreatitis, peptic ulcer disease, stomach ulcers, esophagitis, bowel obstruction, viral syndrome Admission/Observation Consideration of admission/observation: Escalation of care including admission/observation considered Lab Data [facility] Lab Attestation statement: I reviewed the patient's lab results. Please see [facility] 12/17/22 21:24 12/17/22 21:25 Labs: Lab Results 12/17/22 12/17/22 12/17/22 Range/Units 21:24 21:24 21:25 WBC 7.3 (4.8-10.8) X10*3/uL RBC 5.10 (4.60-5.80) X10*6/uL Hgb 14.4 (14.0-18.0) g/dl Hct 42.4 (42.0-52.0) % MCV 83.1 (80.0-98.0) fL MCH 28.2 (27.0-33.0) pg MCHC 34.0 (31.0-36.0) g/dl RDW 13.0 (11.0-16.0) % Plt Count 308 (160-400) X10*3/uL MPV 9.6 (9.4-12.4) fL Immature Gran % (Auto) 0.3 (0.0-0.4) % Neut % (Auto) 59.3 (45-73) % Lymph % (Auto) 28.5 (20-40) % [place]bon % (Auto) 8.2 (2-11) % Eos % (Auto) 2.7 (0-4) % Baso % (Auto) 1.0 (0-2) % Lymph # (Auto) 2.1 (1.2-4.9) X10*3/uL [place] # (Auto) 0.6 (0.1-1.2) X10*3/uL Eos # (Auto) 0.2 (0.0-0.4) X10*3/uL Baso # (Auto) 0.1 (0.0-0.2) X10*3/uL Abs Immat Gran (auto) 0.02 (0.00-0.03) X10*3/uL Absolute Neuts (auto) 4.3 (2.0-8.3) x10*3/uL Absolute Nucleated RBC 0.000 (0.0-0.012) X10*3/uL Nucleated RBC % (auto) 0.0 (0.0-0.2) /100WBC Sodium 138 (135-145) mmol/L Potassium 3.2 L (3.3-5.1) mmol/L Chloride 104 (96-108) mmol/L Carbon Dioxide 24 (22-29) mmol/L Anion Gap 13 (12-20) BUN 12 (9-16) mg/dL Creatinine 0.80 (0.5-1.4) mg/dL Estim Creat Clear Calc 116.8 Estimated GFR > 60 Random Glucose 116 H (60-115) mg/dL Calcium 9.4 (8.4-10.2) mg/dL Total Bilirubin 0.6 0.6 (0.0-1.0) mg/dL Direct Bilirubin 0.1 (0.0-0.5) mg/dL AST 53 H 53 H (5-37) U/L ALT 65 H 65 H (0-40) U/L Alkaline Phosphatase 116 117 (39-117) U/L Total Protein 7.2 7.3 (6.5-8.0) g/dL Albumin 4.3 4.3 (3.5-5.0) g/dL Urine Color Urine Appearance Urine pH (5.0-9.0) Ur Specific Wheel[place] (1.005-1.025) Urine Protein (Neg-Trace) mg/dL Urine Glucose (UA) (Negative) mg/dL Urine Ketones (Negative) mg/dL Urine Blood (Negative) Urine Nitrite (Negative) Ur Leukocyte Esterase (Negative) 12/17/22 Range/Units 23:45 WBC (4.8-10.8) X10*3/uL RBC (4.60-5.80) X10*6/uL Hgb (14.0-18.0) g/dl Hct (42.0-52.0) % MCV (80.0-98.0) fL MCH (27.0-33.0) pg MCHC (31.0-36.0) g/dl RDW (11.0-16.0) % Plt Count (160-400) X10*3/uL MPV (9.4-12.4) fL Immature Gran % (Auto) (0.0-0.4) % Neut % (Auto) (45-73) % Lymph % (Auto) (20-40) % Bourbon % (Auto) (2-11) % Eos % (Auto) (0-4) % Baso % (Auto) (0-2) % Lymph # (Auto) (1.2-4.9) X10*3/uL Bourbon # (Auto) (0.1-1.2) X10*3/uL Eos # (Auto) (0.0-0.4) X10*3/uL Baso # (Auto) (0.0-0.2) X10*3/uL Abs Immat Gran (auto) (0.00-0.03) X10*3/uL Absolute Neuts (auto) (2.0-8.3) x10*3/uL Absolute Nucleated RBC (0.0-0.012) X10*3/uL Nucleated RBC % (auto) (0.0-0.2) /100WBC Sodium (135-145) mmol/L Potassium (3.3-5.1) mmol/L Chloride (96-108) mmol/L Carbon Dioxide (22-29) mmol/L Anion Gap (12-20) BUN (9-16) mg/dL Creatinine (0.5-1.4) mg/dL Estim Creat Clear Calc Estimated GFR Random Glucose (60-115) mg/dL Calcium (8.4-10.2) mg/dL Total Bilirubin (0.0-1.0) mg/dL Direct Bilirubin (0.0-0.5) mg/dL AST (5-37) U/L ALT (0-40) U/L Alkaline Phosphatase (39-117) U/L Total Protein (6.5-8.0) g/dL Albumin (3.5-5.0) g/dL Urine Color Yellow Urine Appearance Clear Urine pH 6.0 (5.0-9.0) Ur Specific [place] 1.025 (1.005-1.025) Urine Protein Negative (Neg-Trace) mg/dL Urine Glucose (UA) Negative (Negative) mg/dL Urine Ketones Negative (Negative) mg/dL Urine Blood Negative (Negative) Urine Nitrite Negative (Negative) Ur Leukocyte Esterase Negative (Negative) Discharge Plan Discharge Clinical Impression: Diarrhea, Vomiting Abdominal pain Qualifiers: Abdominal location: epigastric Qualified Code(s): R10.13 - Epigastric pain Gastritis Qualifiers: Chronicity: acute Gastritis bleeding: without bleeding Patient Disposition: Home, Self-Care Instructions: Gastritis (ED) Additional Instructions: Your blood work was unremarkable. Your urinalysis was normal. Your abdominal pain is most likely caused by too much acid in your stomach which is causing inflammation of your stomach (gastritis) Take extra-strength Gaviscon 10 mL (2 tsp) 4 times a day as needed for abdominal pain. Continue taking your other medications as prescribed by your providers. Follow-up with your doctor in 2 days. Please return to the emergency department if your symptoms get worse or if you develop any symptoms that are concerning to you. Prescriptions: New Gaviscon Extra Strength 254-237.5 mg/5 mL suspension 10 ml PO QID PRN (Reason: dyspepsia) Qty: 355 0RF No Action valacyclovir 1 gram tablet 1,000 mg PO Q12H 10 Days Qty: 20 0RF metoclopramide HCl [Reglan] 10 mg tablet 10 mg PO Q6H PRN (Reason: nausea and vomiting) Qty: 7 0RF prochlorperazine maleate [Compazine] 5 mg tablet 5 mg PO BID PRN (Reason: nausea and vomiting) Qty: 10 0RF dicyclomine 20 mg tablet 20 mg PO QID PRN (Reason: abdominal pain) Qty: 12 0RF ondansetron 4 mg tablet,disintegrating 4 mg PO Q6-8H PRN (Reason: nausea and vomiting) Qty: 7 0RF gabapentin 100 mg capsule 200 mg PO TID Qty: 180 0RF ondansetron 4 mg tablet,disintegrating 4 mg PO Q6-8H PRN (Reason: nausea and vomiting) Qty: 7 0RF ondansetron 4 mg tablet,disintegrating 4 mg PO Q6H Qty: 14 0RF sucralfate 1 gram tablet 1 g PO BID Qty: 60 0RF ondansetron 4 mg tablet,disintegrating 2 mg PO Q6-8H PRN promethazine 12.5 mg tablet 12.5 mg PO Q6-8H pantoprazole 40 mg tablet,delayed release (DR/EC) 40 mg PO BID sucralfate 1 gram tablet 1 g PO QID albuterol sulfate [ProAir HFA] 90 mcg/actuation HFA aerosol inhaler 0 mcg inhalation nifedipine 30 mg tablet extended release 30 mg PO DAILY aripiprazole 15 mg tablet 15 mg PO DAILY nifedipine 30 mg tablet extended release 24hr 30 mg PO DAILY gabapentin 400 mg capsule 400 mg PO TID omeprazole 20 mg capsule,delayed release(DR/EC) 20 mg PO BID tamsulosin 0.4 mg capsule 0.4 mg PO DAILY lidocaine 4 % cream topical diazepam 5 mg tablet 5 mg PO BID PRN alum-mag hydroxide-simeth [Mintox Maximum Strength] 400-400-40 mg/5 mL suspension 20 ml PO QID PRN
[2022-12-18 01:22] LABS: Lipase 17 U/L (8-78)
[2022-12-18 01:54] VITALS: BP 144/95; PULSE 76; RESP 18; TEMP 36.6; O2SAT 97
--- NOTE | 2022-12-18 01:56 | PC.NURSE ---
vss. pt calm and cooperative. pt denies pain at this time. pt provided with discharge packet. pt verbalized understanding of discharge plan. pt discharge to waiting room
== END 2022-12-18 02:00 | disposition home or self-care (01) ==
PROVIDERS: Emergency Provider Emergency Medicine Emergency Medical Services
DX: K29.00 Acute gastritis without bleeding (principal); R10.13 Epigastric pain; Z79.899 Other long term (current) drug therapy
CPT/HCPCS: 36415; 80053; 80076; 81003; 82248; 83690; 85025; 99283; 99284

== ENCOUNTER 2022-12-18 15:24 | Emergency (ER) | payer OTHER, SELFPAY ==
[2022-12-18 15:31] VITALS: BP 120/88; PULSE 92; O2SAT 97
[2022-12-18 15:41] VITALS: BP 132/95; PULSE 78; RESP 18; TEMP 36.1; O2SAT 98; BMI 28.3
--- NOTE | 2022-12-18 15:41 | ED.GENADULT ---
HPI - General Adult General Chief complaint: Headache Stated complaint: VOMITING, VALLEJO Time Seen by Provider: 12/18/22 15:55 Source: patient Limitations: no limitations History of Present Illness HPI narrative: 36-year-old male with longstanding seizure disorder presents to the ER with ongoing migraine headache no relief with medication at home. Patient was recently seen in the ER for gastritis CT scan was done at that time was negative patient was thought to have reflux disease was given medication. Patient states he does not recall the last time he had a seizure. Patient states he called the neurologist and PCP in the or unable to help him with his headache. Symptoms are [id number] positive photophobia positive nausea. No other complaints at this time. Pain 02/10 Related Data Home Medications Medication Instructions Recorded Confirmed albuterol sulfate 90 mcg/actuation 0 mcg inhalation 03/20/22 05/15/22 aerosol inhaler (ProAir HFA) aripiprazole 15 mg tablet 15 mg PO DAILY 03/20/22 05/15/22 diazepam 5 mg tablet 5 mg PO BID PRN 03/20/22 05/15/22 gabapentin 400 mg capsule 400 mg PO TID 03/20/22 05/15/22 lidocaine 4 % topical cream g topical 03/20/22 05/15/22 nifedipine 30 mg tablet,extended 30 mg PO DAILY 03/20/22 05/15/22 release nifedipine 30 mg tablet,extended 30 mg PO DAILY 03/20/22 release 24 hr omeprazole 20 mg capsule,delayed 20 mg PO BID 03/20/22 05/15/22 release ondansetron 4 mg disintegrating 2 mg PO Q6-8H PRN 03/20/22 05/15/22 tablet pantoprazole 40 mg tablet,delayed 40 mg PO BID 03/20/22 05/15/22 release promethazine 12.5 mg tablet 12.5 mg PO Q6-8H 03/20/22 sucralfate 1 gram tablet 1 g PO QID 03/20/22 tamsulosin 0.4 mg capsule 0.4 mg PO DAILY 03/20/22 aluminum-mag hydroxide-simethicone 20 ml PO QID PRN 05/15/22 05/15/22 400 mg-400 mg-40 mg/5 mL oral susp (Mintox Maximum Strength) Previous Rx's Medication Instructions Recorded metoclopramide HCl 10 mg tablet 10 mg PO Q6H PRN nausea and 02/18/21 (Reglan) vomiting #7 tabs valacyclovir 1 gram tablet 1,000 mg PO Q12H 10 days #20 tabs 02/24/21 dicyclomine 20 mg tablet 20 mg PO QID PRN abdominal pain 07/29/22 #12 tabs ondansetron 4 mg disintegrating 4 mg PO Q6-8H PRN nausea and 07/29/22 tablet vomiting #7 tabs prochlorperazine maleate 5 mg 5 mg PO BID PRN nausea and 08/20/22 tablet (Compazine) vomiting #10 tabs gabapentin 100 mg capsule 200 mg PO TID #180 caps 09/01/22 ondansetron 4 mg disintegrating 4 mg PO Q6-8H PRN nausea and 10/16/22 tablet vomiting #7 tabs ondansetron 4 mg disintegrating 4 mg PO Q6H #14 tabs 12/05/22 tablet sucralfate 1 gram tablet 1 g PO BID #60 tabs 12/11/22 aluminum hydrox-magnesium carb 254 10 ml PO QID PRN dyspepsia #355 mL 12/18/22 mg-237.5 mg/5 mL oral suspension (Gaviscon Extra Strength) ondansetron 4 mg disintegrating 4 mg PO BID PRN nausea and 12/18/22 tablet vomiting #10 tabs Allergies Allergy/AdvReac Type Severity Reaction Status Date / Time amoxicillin Allergy Vomiting Verified 12/18/22 15:44 heparin Allergy Hives Verified 12/18/22 15:44 lamotrigine [From Lamictal] Allergy Hives Verified 12/18/22 15:44 levetiracetam [From Keppra] Allergy Hives Verified 12/18/22 15:44 Review of Systems Review of Systems: General: No fever, no chills Ophthalmology: No vision changes, no discharge ENT: No sore throat, no ear pain Cardiovascular: No chest pain, no peripheral edema, no shortness of breath Respiratory: No dyspnea, no sputum production, no cough Muscle skeletal: No malaise, no back pain, no neck pain, no extremity pain GI: Positive nausea no vomiting : No dysuria, no urgency, no frequency Neuro: Positive headache Skin: No rash Immunology: No immunocompromised Hematology: No bleeding, no bruising PMFSH Past Medical History Attestation statement: The following information was validated with the patient. Medical History Back pain Bipolar 1 disorder Neck pain PTSD (post-traumatic stress disorder) Seizure Seizure disorder Sleep disorder TBI (traumatic brain injury) Surgical History Hx of hernia repair Family History Family History Mother Cancer Family/Other No problems noted. Social History Social History Alcohol intake: former Patient Tobacco Use Status: Former Tobacco user Advance Directives: No Advance Directives Information Provided: No Physical Exam ED Vital Signs: Vital Signs - 24 hr 12/18/22 15:41 Temperature 97.0 F Pulse Rate 78 Respiratory Rate 18 Blood Pressure 132/95 H Pulse Oximetry 98 Oxygen Delivery Method Room Air BMI result Body Mass Index 28.3 General appearance: Awake, alert, cooperative, in no acute distress Skin: Warm, dry, no rash Eyes: PERRL, EOMI, positive photophobia ENT: Oropharynx normal, uvula midline Neck: Soft supple full range of motion, no nuchal rigidity Pulmonary: Breath sounds clear to auscultation bilaterally, no accessory muscle use Cardiovascular: Regular rate and rhythm, no murmurs and rubs Abdomen: Soft nontender, no rebound or guarding, positive bowel sounds Extremities: No deformity, nontender, no peripheral edema noted Neuro: Alert oriented x3, no focal deficit Psych: Normal affect Course Course Course Narrative: RME 36 yo male with a pmh of seizures presenting with a 8/10 frontal migraine that started this morning, not responding to ibuprofen, positive for photophobia, nausea, and vomiting. He was seen here last night for abdominal pain. Head CT done less than a month ago and was normal. Plan: medicate once in the main ER Medications Administered Discontinued Medications Generic Name Dose Route Start Last Admin Trade Name Freq PRN Reason Stop Dose Admin Diphenhydramine HCl 25 mg 12/18/22 16:01 12/18/22 16:21 Diphenhydramine Hcl 50 Mg/Ml Vial IVPUSH 12/18/22 16:02 25 mg ONCE ONE Administration Sodium Chloride 1,000 mls @ 999 mls/hr 12/18/22 16:15 12/18/22 16:19 Ns IV 12/18/22 17:15 999 mls/hr .Q1H1M THALIA Administration Ondansetron HCl 4 mg 12/18/22 16:01 12/18/22 16:21 Ondansetron Hcl 4 Mg/2 Ml Vial IVPUSH 12/18/22 16:02 4 mg ONCE ONE Administration Medical Decision Making Medical Decision Making MDM Narrative: Migraine headache Tension headache Dehydration 36-year-old male with longstanding history of seizure disorder and migraine headaches presents with ongoing migraine headache all day. Patient states positive photophobia and nausea. Will give 1000 mL normal saline IV 25 mg Benadryl IV 4 mg Zofran IV 17:20 Symptoms have slightly improved to 50 mg tramadol p.o. at this time plan to discharge patient home on Zofran Discharge Plan Discharge Clinical Impression: Migraine Patient Disposition: Home, Self-Care Instructions: Migraine Headache (ED) Additional Instructions: Increase fluids rest call PCP follow-up Return if symptoms worsen Zofran for nausea Prescriptions: New ondansetron 4 mg tablet,disintegrating 4 mg PO BID PRN (Reason: nausea and vomiting) Qty: 10 0RF No Action valacyclovir 1 gram tablet 1,000 mg PO Q12H 10 Days Qty: 20 0RF metoclopramide HCl [Reglan] 10 mg tablet 10 mg PO Q6H PRN (Reason: nausea and vomiting) Qty: 7 0RF prochlorperazine maleate [Compazine] 5 mg tablet 5 mg PO BID PRN (Reason: nausea and vomiting) Qty: 10 0RF dicyclomine 20 mg tablet 20 mg PO QID PRN (Reason: abdominal pain) Qty: 12 0RF ondansetron 4 mg tablet,disintegrating 4 mg PO Q6-8H PRN (Reason: nausea and vomiting) Qty: 7 0RF gabapentin 100 mg capsule 200 mg PO TID Qty: 180 0RF ondansetron 4 mg tablet,disintegrating 4 mg PO Q6-8H PRN (Reason: nausea and vomiting) Qty: 7 0RF Gaviscon Extra Strength 254-237.5 mg/5 mL suspension 10 ml PO QID PRN (Reason: dyspepsia) Qty: 355 0RF ondansetron 4 mg tablet,disintegrating 4 mg PO Q6H Qty: 14 0RF sucralfate 1 gram tablet 1 g PO BID Qty: 60 0RF ondansetron 4 mg tablet,disintegrating 2 mg PO Q6-8H PRN promethazine 12.5 mg tablet 12.5 mg PO Q6-8H pantoprazole 40 mg tablet,delayed release (DR/EC) 40 mg PO BID sucralfate 1 gram tablet 1 g PO QID albuterol sulfate [ProAir HFA] 90 mcg/actuation HFA aerosol inhaler 0 mcg inhalation nifedipine 30 mg tablet extended release 30 mg PO DAILY aripiprazole 15 mg tablet 15 mg PO DAILY nifedipine 30 mg tablet extended release 24hr 30 mg PO DAILY gabapentin 400 mg capsule 400 mg PO TID omeprazole 20 mg capsule,delayed release(DR/EC) 20 mg PO BID tamsulosin 0.4 mg capsule 0.4 mg PO DAILY lidocaine 4 % cream topical diazepam 5 mg tablet 5 mg PO BID PRN alum-mag hydroxide-simeth [Mintox Maximum Strength] 400-400-40 mg/5 mL suspension 20 ml PO QID PRN
[2022-12-18] MEDS: 0.9 % Sodium Chloride 1,000 ML 999 ML IV (16:19)
[2022-12-18] MEDS: diphenhydrAMINE HCL 50 MG/ML VIAL 25 MG IVPUSH (16:21)
[2022-12-18] MEDS: ondansetron HCL 4 MG/2 ML VIAL IVPUSH (16:21)
--- NOTE | 2022-12-18 16:22 | PC.NURSE ---
20G iv placed in right AC, 1l NS infusing per orders, pt calm and cooperative, call sherman within reach
[2022-12-18] MEDS: traMADoL HCL 50 MG TABLET PO (17:29)
== END 2022-12-18 17:34 | disposition home or self-care (01) ==
PROVIDERS: Emergency Provider Emergency Medicine
DX: G43.909 Migraine, unspecified, not intractable, without status migrainosus (principal); Z87.891 Personal history of nicotine dependence; Z79.899 Other long term (current) drug therapy
CPT/HCPCS: 96374; 96375; 99284; J1200; J2405

== ENCOUNTER 2022-12-31 14:49 | Emergency (ER) | payer OTHER, SELFPAY ==
[2022-12-31 14:53] VITALS: BP 110/70; PULSE 76; O2SAT 97
--- NOTE | 2022-12-31 14:54 | ED_ITS ---
HPI - Nausea/Vomiting/Diarrhea General Chief complaint: Headache Stated complaint: nausea, ho, per ems Related Data Home Medications Medication Instructions Recorded Confirmed albuterol sulfate 90 mcg/actuation 0 mcg inhalation 03/20/22 05/15/22 aerosol inhaler (ProAir HFA) aripiprazole 15 mg tablet 15 mg PO DAILY 03/20/22 05/15/22 diazepam 5 mg tablet 5 mg PO BID PRN 03/20/22 05/15/22 gabapentin 400 mg capsule 400 mg PO TID 03/20/22 05/15/22 lidocaine 4 % topical cream g topical 03/20/22 05/15/22 nifedipine 30 mg tablet,extended 30 mg PO DAILY 03/20/22 05/15/22 release nifedipine 30 mg tablet,extended 30 mg PO DAILY 03/20/22 release 24 hr omeprazole 20 mg capsule,delayed 20 mg PO BID 03/20/22 05/15/22 release ondansetron 4 mg disintegrating 2 mg PO Q6-8H PRN 03/20/22 05/15/22 tablet pantoprazole 40 mg tablet,delayed 40 mg PO BID 03/20/22 05/15/22 release promethazine 12.5 mg tablet 12.5 mg PO Q6-8H 03/20/22 sucralfate 1 gram tablet 1 g PO QID 03/20/22 tamsulosin 0.4 mg capsule 0.4 mg PO DAILY 03/20/22 aluminum-mag hydroxide-simethicone 20 ml PO QID PRN 05/15/22 05/15/22 400 mg-400 mg-40 mg/5 mL oral susp (Mintox Maximum Strength) Previous Rx's Medication Instructions Recorded metoclopramide HCl 10 mg tablet 10 mg PO Q6H PRN nausea and 02/18/21 (Reglan) vomiting #7 tabs valacyclovir 1 gram tablet 1,000 mg PO Q12H 10 days #20 tabs 02/24/21 dicyclomine 20 mg tablet 20 mg PO QID PRN abdominal pain 07/29/22 #12 tabs ondansetron 4 mg disintegrating 4 mg PO Q6-8H PRN nausea and 07/29/22 tablet vomiting #7 tabs prochlorperazine maleate 5 mg 5 mg PO BID PRN nausea and 08/20/22 tablet (Compazine) vomiting #10 tabs gabapentin 100 mg capsule 200 mg PO TID #180 caps 09/01/22 ondansetron 4 mg disintegrating 4 mg PO Q6-8H PRN nausea and 10/16/22 tablet vomiting #7 tabs ondansetron 4 mg disintegrating 4 mg PO Q6H #14 tabs 12/05/22 tablet sucralfate 1 gram tablet 1 g PO BID #60 tabs 12/11/22 aluminum hydrox-magnesium carb 254 10 ml PO QID PRN dyspepsia #355 mL 12/18/22 mg-237.5 mg/5 mL oral suspension (Gaviscon Extra Strength) ondansetron 4 mg disintegrating 4 mg PO BID PRN nausea and 12/18/22 tablet vomiting #10 tabs Allergies Allergy/AdvReac Type Severity Reaction Status Date / Time amoxicillin Allergy Vomiting Verified 12/31/22 15:42 heparin Allergy Hives Verified 12/31/22 15:42 lamotrigine [From Lamictal] Allergy Hives Verified 12/31/22 15:42 levetiracetam [From Keppra] Allergy Hives Verified 12/31/22 15:42 PMFSH Past Medical History Medical History Back pain Bipolar 1 disorder Neck pain PTSD (post-traumatic stress disorder) Seizure Seizure disorder Sleep disorder TBI (traumatic brain injury) Surgical History Hx of hernia repair Family History Family History Mother Cancer Family/Other No problems noted. Social History Social History Alcohol intake: former Patient Tobacco Use Status: Former Tobacco user Advance Directives: No Advance Directives Information Provided: No Physical Exam Vital Signs: Vital Signs: Last Vital Signs Temp 98 F 12/31/22 15:42 Pulse 75 12/31/22 15:42 Resp 18 12/31/22 15:42 BP 109/82 12/31/22 15:42 Pulse Ox 98 12/31/22 15:42 O2 Del Method Room Air 12/31/22 15:42 BMI result Body Mass Index 30.8 Course Course Course Narrative: RME - 37-year-old male with history of seizure disorder, migraine, gastritis who presents to the ER via EMS for evaluation of headache, nausea, vomiting that started this morning. He states he is unable to keep down anything orally. He reports this headache does not feel like his regular migraine. No witness retching or vomiting for EMS. Vital signs are stable. Plan: Check basic labs, antiemetics and migraine treatment Reevaluation(s) Reevaluation #1: patient eloped prior to treatment Medical Decision Making Lab Data 12/31/22 16:02 12/31/22 16:02 Labs: Lab Results 12/31/22 12/31/22 Range/Units 16:02 16:02 WBC 7.2 (4.8-10.8) X10*3/uL RBC 5.47 (4.60-5.80) X10*6/uL Hgb 15.4 (14.0-18.0) g/dl Hct 45.9 (42.0-52.0) % MCV 83.9 (80.0-98.0) fL MCH 28.2 (27.0-33.0) pg MCHC 33.6 (31.0-36.0) g/dl RDW 12.6 (11.0-16.0) % Plt Count 299 (160-400) X10*3/uL MPV 10.0 (9.4-12.4) fL Immature Gran % (Auto) 0.4 (0.0-0.4) % Neut % (Auto) 63.6 (45-73) % Lymph % (Auto) 25.7 (20-40) % [place] % (Auto) 7.2 (2-11) % Eos % (Auto) 2.1 (0-4) % Baso % (Auto) 1.0 (0-2) % Lymph # (Auto) 1.9 (1.2-4.9) X10*3/uL [place] # (Auto) 0.5 (0.1-1.2) X10*3/uL Eos # (Auto) 0.2 (0.0-0.4) X10*3/uL Baso # (Auto) 0.1 (0.0-0.2) X10*3/uL Abs Immat Gran (auto) 0.03 (0.00-0.03) X10*3/uL Absolute Neuts (auto) 4.6 (2.0-8.3) x10*3/uL Absolute Nucleated RBC 0.000 (0.0-0.012) X10*3/uL Nucleated RBC % (auto) 0.0 (0.0-0.2) /100WBC Sodium 140 (135-145) mmol/L Potassium 3.9 D (3.3-5.1) mmol/L Chloride 106 (96-108) mmol/L Carbon Dioxide 27 (22-29) mmol/L Anion Gap 11 L (12-20) BUN 16 (9-16) mg/dL Creatinine 0.88 (0.5-1.4) mg/dL Estim Creat Clear Calc 107.8 Estimated GFR > 60 Random Glucose 96 (60-115) mg/dL Calcium 9.7 (8.4-10.2) mg/dL Magnesium 2.0 (1.6-2.6) mg/dL Total Bilirubin 0.9 (0.0-1.0) mg/dL Direct Bilirubin 0.2 (0.0-0.5) mg/dL AST 31 (5-37) U/L ALT 46 H (0-40) U/L Alkaline Phosphatase 111 (39-117) U/L Total Protein 7.5 (6.5-8.0) g/dL Albumin 4.4 (3.5-5.0) g/dL Discharge Plan Discharge Clinical Impression: Migraine Patient Disposition: Elopement Prescriptions: No Action valacyclovir 1 gram tablet 1,000 mg PO Q12H 10 Days Qty: 20 0RF metoclopramide HCl [Reglan] 10 mg tablet 10 mg PO Q6H PRN (Reason: nausea and vomiting) Qty: 7 0RF prochlorperazine maleate [Compazine] 5 mg tablet 5 mg PO BID PRN (Reason: nausea and vomiting) Qty: 10 0RF dicyclomine 20 mg tablet 20 mg PO QID PRN (Reason: abdominal pain) Qty: 12 0RF ondansetron 4 mg tablet,disintegrating 4 mg PO Q6-8H PRN (Reason: nausea and vomiting) Qty: 7 0RF gabapentin 100 mg capsule 200 mg PO TID Qty: 180 0RF ondansetron 4 mg tablet,disintegrating 4 mg PO Q6-8H PRN (Reason: nausea and vomiting) Qty: 7 0RF Gaviscon Extra Strength 254-237.5 mg/5 mL suspension 10 ml PO QID PRN (Reason: dyspepsia) Qty: 355 0RF ondansetron 4 mg tablet,disintegrating 4 mg PO Q6H Qty: 14 0RF sucralfate 1 gram tablet 1 g PO BID Qty: 60 0RF ondansetron 4 mg tablet,disintegrating 4 mg PO BID PRN (Reason: nausea and vomiting) Qty: 10 0RF ondansetron 4 mg tablet,disintegrating 2 mg PO Q6-8H PRN promethazine 12.5 mg tablet 12.5 mg PO Q6-8H pantoprazole 40 mg tablet,delayed release (DR/EC) 40 mg PO BID sucralfate 1 gram tablet 1 g PO QID albuterol sulfate [ProAir HFA] 90 mcg/actuation HFA aerosol inhaler 0 mcg inhalation nifedipine 30 mg tablet extended release 30 mg PO DAILY aripiprazole 15 mg tablet 15 mg PO DAILY nifedipine 30 mg tablet extended release 24hr 30 mg PO DAILY gabapentin 400 mg capsule 400 mg PO TID omeprazole 20 mg capsule,delayed release(DR/EC) 20 mg PO BID tamsulosin 0.4 mg capsule 0.4 mg PO DAILY lidocaine 4 % cream topical diazepam 5 mg tablet 5 mg PO BID PRN alum-mag hydroxide-simeth [Mintox Maximum Strength] 400-400-40 mg/5 mL suspension 20 ml PO QID PRN Discharge Date/Time: 12/31/22 19:40
[2022-12-31 15:42] VITALS: BP 109/82; PULSE 75; RESP 18; TEMP 36.6; O2SAT 98; BMI 30.8
[2022-12-31 16:05] LABS: MANUAL DIFF FLAG NO
[2022-12-31 16:23] LABS: Basophils Absolute Auto 0.1 X10*3/uL (0.0-0.2); Eosinophils Absolute Auto 0.2 X10*3/uL (0.0-0.4); Eosinophils Percent Auto 2.1 % (0-4); Hematocrit 45.9 % (42.0-52.0); Hemoglobin 15.4 g/dl (14.0-18.0); Imm Gran Abs Auto 0.03 X10*3/uL (0.00-0.03); Imm Gran Pct Auto 0.4 % (0.0-0.4); Lymphocytes Absolute Auto 1.9 X10*3/uL (1.2-4.9); Lymphocytes Percent Auto 25.7 % (20-40); Mean Corpuscular HGB Conc 33.6 g/dl (31.0-36.0); Mean Corpuscular Hemoglobin 28.2 pg (27.0-33.0); Mean Corpuscular Volume 83.9 fL (80.0-98.0); Monocytes Absolute Auto 0.5 X10*3/uL (0.1-1.2); Monocytes Percent Auto 7.2 % (2-11); Neutrophils Absolute Auto 4.6 x10*3/uL (2.0-8.3); Neutrophils Percent Auto 63.6 % (45-73); Platelet Count 299 X10*3/uL (160-400); Red Blood Count 5.47 X10*6/uL (4.60-5.80); Red Cell Distribution Width 12.6 % (11.0-16.0); White Blood Count 7.2 X10*3/uL (4.8-10.8)
[2022-12-31 16:24] LABS: Alanine Aminotransferase 46 U/L (0-40); Albumin Level 4.4 g/dL (3.5-5.0); Alkaline Phosphatase 111 U/L (39-117); Anion Gap 11 (12-20); Aspartate Amino Transferase 31 U/L (5-37); Bilirubin Direct 0.2 mg/dL (0.0-0.5); Bilirubin Total 0.9 mg/dL (0.0-1.0); Blood Urea Nitrogen 16 mg/dL (9-16); Calcium 9.7 mg/dL (8.4-10.2); Carbon Dioxide 27 mmol/L (22-29); Chloride 106 mmol/L (96-108); Creatinine Clr Calc Pharmacy 107.8; Estimated Glomerular Filt Rate > 60; Glucose Random 96 mg/dL (60-115); Potassium 3.9 mmol/L (3.3-5.1); Sodium 140 mmol/L (135-145); Total Protein 7.5 g/dL (6.5-8.0)
== END 2022-12-31 19:40 | disposition left against medical advice (07) ==
PROVIDERS: Physician Assistant; Emergency Provider Emergency Medicine
DX: G43.909 Migraine, unspecified, not intractable, without status migrainosus (principal); Z53.21 Procedure and treatment not carried out due to patient leaving prior to being seen by health care provider
CPT/HCPCS: 36415; 80048; 80076; 83735; 85025; 99281; 99283

== ENCOUNTER 2023-01-03 22:42 | Emergency (ER) | payer OTHER, SELFPAY ==
--- NOTE | ~2023-01-03 | XR_ITS ---
EXAMINATION: XR ANKLE, LEFT CLINICAL INFORMATION: Trauma COMPARISON: None available. TECHNIQUE: AP, lateral, and mortise views of the left ankle. FINDINGS: No acute fracture or dislocation. XR/XR ankle LT 2V IMPRESSION: No acute fracture or dislocation left ankle.
[2023-01-03 22:54] VITALS: BP 136/82; PULSE 72; RESP 20; O2SAT 97; BMI 28.9
--- NOTE | 2023-01-04 01:06 | ED_ITS ---
HPI - Extremity Injury (Lower) General Chief Complaint: Extremity Injury, Lower Stated Complaint: Left Ankle Pain Time Seen by Provider: 01/04/23 00:34 Source: patient and EMS Mode of arrival: EMS Limitations: no limitations History of Present Illness HPI Narrative: Left ankle pain MD complaint: ankle injury Onset (ago): hour(s) (2) Type of Injury: inversion Place: home Severity: severe Severity scale (1-10): 8 Relieving factors: cold therapy Exacerbating factors: weight bearing, movement and palpation Context: walking Associated symptoms: able to partially bear weight Other symptoms: none Treatments prior to arrival: cold therapy Related Data Home Medications Medication Instructions Recorded Confirmed albuterol sulfate 90 mcg/actuation 0 mcg inhalation 03/20/22 05/15/22 aerosol inhaler (ProAir HFA) aripiprazole 15 mg tablet 15 mg PO DAILY 03/20/22 05/15/22 diazepam 5 mg tablet 5 mg PO BID PRN 03/20/22 05/15/22 gabapentin 400 mg capsule 400 mg PO TID 03/20/22 05/15/22 lidocaine 4 % topical cream g topical 03/20/22 05/15/22 nifedipine 30 mg tablet,extended 30 mg PO DAILY 03/20/22 05/15/22 release nifedipine 30 mg tablet,extended 30 mg PO DAILY 03/20/22 release 24 hr omeprazole 20 mg capsule,delayed 20 mg PO BID 03/20/22 05/15/22 release ondansetron 4 mg disintegrating 2 mg PO Q6-8H PRN 03/20/22 05/15/22 tablet pantoprazole 40 mg tablet,delayed 40 mg PO BID 03/20/22 05/15/22 release promethazine 12.5 mg tablet 12.5 mg PO Q6-8H 03/20/22 sucralfate 1 gram tablet 1 g PO QID 03/20/22 tamsulosin 0.4 mg capsule 0.4 mg PO DAILY 03/20/22 aluminum-mag hydroxide-simethicone 20 ml PO QID PRN 05/15/22 05/15/22 400 mg-400 mg-40 mg/5 mL oral susp (Mintox Maximum Strength) Previous Rx's Medication Instructions Recorded metoclopramide HCl 10 mg tablet 10 mg PO Q6H PRN nausea and 02/18/21 (Reglan) vomiting #7 tabs valacyclovir 1 gram tablet 1,000 mg PO Q12H 10 days #20 tabs 02/24/21 dicyclomine 20 mg tablet 20 mg PO QID PRN abdominal pain 07/29/22 #12 tabs ondansetron 4 mg disintegrating 4 mg PO Q6-8H PRN nausea and 07/29/22 tablet vomiting #7 tabs prochlorperazine maleate 5 mg 5 mg PO BID PRN nausea and 08/20/22 tablet (Compazine) vomiting #10 tabs gabapentin 100 mg capsule 200 mg PO TID #180 caps 09/01/22 ondansetron 4 mg disintegrating 4 mg PO Q6-8H PRN nausea and 10/16/22 tablet vomiting #7 tabs ondansetron 4 mg disintegrating 4 mg PO Q6H #14 tabs 12/05/22 tablet sucralfate 1 gram tablet 1 g PO BID #60 tabs 12/11/22 aluminum hydrox-magnesium carb 254 10 ml PO QID PRN dyspepsia #355 mL 12/18/22 mg-237.5 mg/5 mL oral suspension (Gaviscon Extra Strength) ondansetron 4 mg disintegrating 4 mg PO BID PRN nausea and 12/18/22 tablet vomiting #10 tabs Allergies Allergy/AdvReac Type Severity Reaction Status Date / Time amoxicillin Allergy Vomiting Verified 12/31/22 15:42 heparin Allergy Hives Verified 12/31/22 15:42 lamotrigine [From Lamictal] Allergy Hives Verified 12/31/22 15:42 levetiracetam [From Keppra] Allergy Hives Verified 12/31/22 15:42 Review of Systems Review of Systems: CONSTITUTIONAL: Denies weight loss, fever and chills. HEENT: Denies changes in vision and hearing. RESPIRATORY: Denies SOB and cough. CV: Denies palpitations no CP. GI: Denies abdominal pain, nausea, vomiting and diarrhea. : Denies dysuria and urinary frequency. MSK: Denies myalgia + joint pain. SKIN: Denies rash and pruritus. NEUROLOGICAL: Denies headache and syncope. PSYCHIATRIC: Denies recent changes in mood. Denies anxiety and depression. All other ROS are negative unless in HPI PMFSH Past Medical History Medical History Back pain Bipolar 1 disorder Neck pain PTSD (post-traumatic stress disorder) Seizure Seizure disorder Sleep disorder TBI (traumatic brain injury) Surgical History Hx of hernia repair Family History Family History Mother Cancer Family/Other No problems noted. Social History Social History Alcohol intake: former Patient Tobacco Use Status: Former Tobacco user Advance Directives: No Advance Directives Information Provided: Yes Physical Exam Vital Signs: Vital Signs: Last Vital Signs Pulse 72 01/03/23 22:54 Resp 20 01/03/23 22:54 BP 136/82 01/03/23 22:54 Pulse Ox 97 01/03/23 22:54 O2 Del Method Room Air 01/03/23 22:54 BMI result Body Mass Index 28.9 GEN: Well developed, no acute distress, alert, oriented HEENT: Normocephalic, atraumatic, normal external ears, nose appears normal Eyes: Normal to appearance Neck: Supple, no lymphadenopathy Respiratory: Talks in complete sentences, no respiratory distress Extremities: No clubbing cyanosis or edema, tenderness overlying the anterior aspect of the lateral malleolus on the left leg, soft tissue swelling, no base of the 5th metatarsal pain, no ecchymoses, neurovascularly intact Neurologic: No focal neurologic deficits, cranial nerves 2-12 intact, gait normal Skin: No rash Course Course Course Narrative: Patient presents with an ankle sprain. X-rays negative for fracture. Rice therapy, air cast, NSAIDs. Medical Decision Making Medical Decision Making [facility] Narrative: Patient presents with acute left ankle pain following an inversion injury Differential Diagnosis Differential Diagnoses: The differential diagnosis associated with the presentation includes (Fracture, sprain, sprain, contusion) Independent Interpretation I performed an independent interpretation of an: Plain X-Ray (Left ankle: No acute fracture, soft tissue swelling) Prescription Management I considered prescription management with: Pain Medication Discharge Plan Discharge Clinical Impression: Ankle sprain and strain Instructions: Ankle Sprain (ED), R.I.C.E. Treatment (ED) Prescriptions: No Action valacyclovir 1 gram tablet 1,000 mg PO Q12H 10 Days Qty: 20 0RF metoclopramide HCl [Reglan] 10 mg tablet 10 mg PO Q6H PRN (Reason: nausea and vomiting) Qty: 7 0RF prochlorperazine maleate [Compazine] 5 mg tablet 5 mg PO BID PRN (Reason: nausea and vomiting) Qty: 10 0RF dicyclomine 20 mg tablet 20 mg PO QID PRN (Reason: abdominal pain) Qty: 12 0RF ondansetron 4 mg tablet,disintegrating 4 mg PO Q6-8H PRN (Reason: nausea and vomiting) Qty: 7 0RF gabapentin 100 mg capsule 200 mg PO TID Qty: 180 0RF ondansetron 4 mg tablet,disintegrating 4 mg PO Q6-8H PRN (Reason: nausea and vomiting) Qty: 7 0RF Gaviscon Extra Strength 254-237.5 mg/5 mL suspension 10 ml PO QID PRN (Reason: dyspepsia) Qty: 355 0RF ondansetron 4 mg tablet,disintegrating 4 mg PO Q6H Qty: 14 0RF sucralfate 1 gram tablet 1 g PO BID Qty: 60 0RF ondansetron 4 mg tablet,disintegrating 4 mg PO BID PRN (Reason: nausea and vomiting) Qty: 10 0RF ondansetron 4 mg tablet,disintegrating 2 mg PO Q6-8H PRN promethazine 12.5 mg tablet 12.5 mg PO Q6-8H pantoprazole 40 mg tablet,delayed release (DR/EC) 40 mg PO BID sucralfate 1 gram tablet 1 g PO QID albuterol sulfate [ProAir HFA] 90 mcg/actuation HFA aerosol inhaler 0 mcg inhalation nifedipine 30 mg tablet extended release 30 mg PO DAILY aripiprazole 15 mg tablet 15 mg PO DAILY nifedipine 30 mg tablet extended release 24hr 30 mg PO DAILY gabapentin 400 mg capsule 400 mg PO TID omeprazole 20 mg capsule,delayed release(DR/EC) 20 mg PO BID tamsulosin 0.4 mg capsule 0.4 mg PO DAILY lidocaine 4 % cream topical diazepam 5 mg tablet 5 mg PO BID PRN alum-mag hydroxide-simeth [Mintox Maximum Strength] 400-400-40 mg/5 mL suspension 20 ml PO QID PRN Referrals: Diaz Garcia MD [Physician] - 1 week
[2023-01-04] MEDS: Ibuprofen 600 MG TABLET PO (01:39)
== END 2023-01-04 01:54 | disposition home or self-care (01) ==
PROVIDERS: Emergency Provider Emergency Medicine
DX: S93.402A Sprain of unspecified ligament of left ankle, initial encounter (principal); X58.XXXA Exposure to other specified factors, initial encounter; Y93.9 Activity, unspecified; Y92.9 Unspecified place or not applicable; Y99.9 Unspecified external cause status; Z79.899 Other long term (current) drug therapy; Z87.891 Personal history of nicotine dependence
CPT/HCPCS: 73600; 99283

== ENCOUNTER → 2023-01-10 13:44 | Outpatient (BNVA) | payer OTHER, SELFPAY | PROVIDERS: Visit Provider Nurse Practitioner Family | DX: G47.9 Sleep disorder, unspecified (principal); G40.909 Epilepsy, unspecified, not intractable, without status epilepticus | CPT/HCPCS: 99212 ==

== ENCOUNTER 2023-01-17 16:43 | Emergency (ER) | payer OTHER, SELFPAY ==
[2023-01-17 16:58] VITALS: BP 118/81; BP 125/88; PULSE 62; PULSE 66; RESP 12; TEMP 36.8; O2SAT 95; O2SAT 98; BMI 30.4
[2023-01-17 17:28] LABS: MANUAL DIFF FLAG NO
[2023-01-17 17:46] LABS: Basophils Percent Auto 0.7 % (0-2); Eosinophils Absolute Auto 0.2 X10*3/uL (0.0-0.4); Eosinophils Percent Auto 3.2 % (0-4); Hematocrit 41.6 % (42.0-52.0); Hemoglobin 13.9 g/dl (14.0-18.0); Imm Gran Abs Auto 0.01 X10*3/uL (0.00-0.03); Imm Gran Pct Auto 0.2 % (0.0-0.4); Lymphocytes Absolute Auto 1.9 X10*3/uL (1.2-4.9); Lymphocytes Percent Auto 35.8 % (20-40); Mean Corpuscular HGB Conc 33.4 g/dl (31.0-36.0); Mean Corpuscular Hemoglobin 28.1 pg (27.0-33.0); Mean Corpuscular Volume 84.2 fL (80.0-98.0); Monocytes Absolute Auto 0.7 X10*3/uL (0.1-1.2); Monocytes Percent Auto 13.1 % (2-11); Neutrophils Absolute Auto 2.5 x10*3/uL (2.0-8.3); Platelet Count 267 X10*3/uL (160-400); Red Blood Count 4.94 X10*6/uL (4.60-5.80); White Blood Count 5.4 X10*3/uL (4.8-10.8)
[2023-01-17 17:55] LABS: Alanine Aminotransferase 41 U/L (0-40); Albumin Level 4.2 g/dL (3.5-5.0); Alkaline Phosphatase 102 U/L (39-117); Anion Gap 12 (12-20); Aspartate Amino Transferase 34 U/L (5-37); Bilirubin Total 0.6 mg/dL (0.0-1.0); Blood Urea Nitrogen 23 mg/dL (9-16); Calcium 9.3 mg/dL (8.4-10.2); Carbon Dioxide 22 mmol/L (22-29); Chloride 110 mmol/L (96-108); Creatinine Clr Calc Pharmacy 117.9; Estimated Glomerular Filt Rate > 60; Ethanol < 10 mg/dL; Glucose Random 94 mg/dL (60-115); Potassium 3.6 mmol/L (3.3-5.1); Sodium 140 mmol/L (135-145); Total Protein 7.2 g/dL (6.5-8.0)
--- NOTE | 2023-01-17 18:51 | ED_ITS ---
HPI - Seizure General Chief Complaint: Seizure Stated Complaint: seizure, per ems Time Seen by Provider: 01/17/23 17:02 Source: patient Mode of arrival: EMS History of Present Illness HPI Narrative: 37-year-old male with a history of autism and seizures, followed by [facility] and appears to be treated with gabapentin but arrives via EMS for having absent seizure today. Patient states he is run out of medications although on review of pharmacy data he has 3 months of gabapentin that he had prescribed on 01/14. It appears that may be patient has not picked up the medication as antihypertensives are also included. Patient reports that he urinated during the seizure but denies any fevers, chills, GI or symptoms. Seizure History: Yes (last yr was last occurrence) Related Data Home Medications Medication Instructions Recorded Confirmed albuterol sulfate 90 mcg/actuation 0 mcg inhalation 03/20/22 05/15/22 aerosol inhaler (ProAir HFA) aripiprazole 15 mg tablet 15 mg PO DAILY 03/20/22 05/15/22 diazepam 5 mg tablet 5 mg PO BID PRN 03/20/22 05/15/22 lidocaine 4 % topical cream g topical 03/20/22 05/15/22 nifedipine 30 mg tablet,extended 30 mg PO DAILY 03/20/22 05/15/22 release nifedipine 30 mg tablet,extended 30 mg PO DAILY 03/20/22 release 24 hr omeprazole 20 mg capsule,delayed 20 mg PO BID 03/20/22 05/15/22 release ondansetron 4 mg disintegrating 2 mg PO Q6-8H PRN 03/20/22 05/15/22 tablet pantoprazole 40 mg tablet,delayed 40 mg PO BID 03/20/22 05/15/22 release promethazine 12.5 mg tablet 12.5 mg PO Q6-8H 03/20/22 sucralfate 1 gram tablet 1 g PO QID 03/20/22 tamsulosin 0.4 mg capsule 0.4 mg PO DAILY 03/20/22 aluminum-mag hydroxide-simethicone 20 ml PO QID PRN 05/15/22 05/15/22 400 mg-400 mg-40 mg/5 mL oral susp (Mintox Maximum Strength) cetirizine 10 mg tablet 10 mg PO DAILY PRN allergies 01/10/23 famotidine 20 mg tablet 20 mg PO BEDTIME 01/10/23 gabapentin 600 mg tablet 600 mg PO TID seizure 01/10/23 01/10/23 hydroxyzine pamoate 100 mg capsule 100 mg PO BEDTIME PRN insomnia 01/10/23 lisinopril 10 mg tablet 10 mg PO DAILY 01/10/23 nystatin 100,000 unit/gram topical topical BID 01/10/23 powder Previous Rx's Medication Instructions Recorded metoclopramide HCl 10 mg tablet 10 mg PO Q6H PRN nausea and 02/18/21 (Reglan) vomiting #7 tabs valacyclovir 1 gram tablet 1,000 mg PO Q12H 10 days #20 tabs 02/24/21 dicyclomine 20 mg tablet 20 mg PO QID PRN abdominal pain 07/29/22 #12 tabs ondansetron 4 mg disintegrating 4 mg PO Q6-8H PRN nausea and 07/29/22 tablet vomiting #7 tabs prochlorperazine maleate 5 mg 5 mg PO BID PRN nausea and 08/20/22 tablet (Compazine) vomiting #10 tabs ondansetron 4 mg disintegrating 4 mg PO Q6-8H PRN nausea and 10/16/22 tablet vomiting #7 tabs ondansetron 4 mg disintegrating 4 mg PO Q6H #14 tabs 12/05/22 tablet sucralfate 1 gram tablet 1 g PO BID #60 tabs 12/11/22 aluminum hydrox-magnesium carb 254 10 ml PO QID PRN dyspepsia #355 mL 12/18/22 mg-237.5 mg/5 mL oral suspension (Gaviscon Extra Strength) ondansetron 4 mg disintegrating 4 mg PO BID PRN nausea and 12/18/22 tablet vomiting #10 tabs gabapentin 600 mg tablet 600 mg PO TID 90 days #270 tabs 01/10/23 Allergies Allergy/AdvReac Type Severity Reaction Status Date / Time amoxicillin Allergy Vomiting Verified 01/10/23 14:06 heparin Allergy Hives Verified 01/10/23 14:06 lamotrigine [From Lamictal] Allergy Hives Verified 01/10/23 14:06 levetiracetam [From Keppra] Allergy Hives Verified 01/10/23 14:06 Review of Systems Review of Systems: Pertinent positives and negatives as stated in HPI PMFSH Past Medical History Source: nursing notes reviewed Medical History Back pain Bipolar 1 disorder Neck pain PTSD (post-traumatic stress disorder) Seizure Seizure disorder Sleep disorder TBI (traumatic brain injury) Surgical History Hx of hernia repair Family History Family History Mother Cancer Family/Other No problems noted. Social History Social History Alcohol intake: former Patient Tobacco Use Status: Former Tobacco user Advance Directives: No Advance Directives Information Provided: No Physical Exam Vital Signs: Vital Signs: Last Vital Signs Temp 98.3 F 01/17/23 16:58 Pulse 66 01/17/23 16:58 Resp 12 01/17/23 16:58 BP 118/81 01/17/23 16:58 Pulse Ox 95 01/17/23 16:58 O2 Del Method Room Air 01/17/23 16:58 BMI result Body Mass Index 30.4 VITAL SIGNS: Reviewed. GENERAL: Well developed, well nourished, in no acute distress. HEAD: Normocephalic/atraumatic EYES: PERRLA, EOMI EARS: Ext canals without abnormality NOSE: Nares patent bilateral OROPHARYNX: no oral lesions noted, posterior pharynx clear NECK: Supple, no adenopathy LUNGS: Normal breath sounds. No adventitious sounds or accessory muscle use. SpO2<95> CARDIOVASCULAR: Regular rate and rhythm without noted murmurs ABDOMEN: Soft, non-tender, non-distended with bowel sounds. MUSCULOSKELETAL: No tenderness, deformities, or effusions noted on gross inspection. EXTREMITIES: No cyanosis, clubbing or edema. SKIN: Inspection of the skin reveals no rashes NEUROLOGIC: Alert and oriented x 4. Strength and sensation to light touch were grossly intact x 4. Medical Decision Making Medical Decision Making MDM Narrative: 37-year-old male with history and clinical presentation of absence seizure as per the patient, a patient otherwise appears well, no medication changes, it does appear like a new prescription for his gabapentin has been sent and is a 3 month supply. Patient is otherwise allergic to Keppra and on review of all investigations lab work appears to be chronically stable without evidence of infection, electrolyte abnormalities. 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 Differential Diagnosis Please see the discussion above Lab Data Please see the discussion above 01/17/23 17:24 01/17/23 17:24 Labs: Lab Results 01/17/23 01/17/23 01/17/23 Range/Units 17:24 17:24 17:24 WBC 5.4 (4.8-10.8) X10*3/uL RBC 4.94 (4.60-5.80) X10*6/uL Hgb 13.9 L (14.0-18.0) g/dl Hct 41.6 L (42.0-52.0) % MCV 84.2 (80.0-98.0) fL MCH 28.1 (27.0-33.0) pg MCHC 33.4 (31.0-36.0) g/dl RDW 13.0 (11.0-16.0) % Plt Count 267 (160-400) X10*3/uL MPV 10.0 (9.4-12.4) fL Immature Gran % (Auto) 0.2 (0.0-0.4) % Neut % (Auto) 47.0 (45-73) % Lymph % (Auto) 35.8 (20-40) % Terry % (Auto) 13.1 H (2-11) % Eos % (Auto) 3.2 (0-4) % Baso % (Auto) 0.7 (0-2) % Lymph # (Auto) 1.9 (1.2-4.9) X10*3/uL Terry # (Auto) 0.7 (0.1-1.2) X10*3/uL Eos # (Auto) 0.2 (0.0-0.4) X10*3/uL Baso # (Auto) 0.0 (0.0-0.2) X10*3/uL Abs Immat Gran (auto) 0.01 (0.00-0.03) X10*3/uL Absolute Neuts (auto) 2.5 (2.0-8.3) x10*3/uL Absolute Nucleated RBC 0.000 (0.0-0.012) X10*3/uL Nucleated RBC % (auto) 0.0 (0.0-0.2) /100WBC Sodium 140 (135-145) mmol/L Potassium 3.6 (3.3-5.1) mmol/L Chloride 110 H (96-108) mmol/L Carbon Dioxide 22 (22-29) mmol/L Anion Gap 12 (12-20) BUN 23 H (9-16) mg/dL Creatinine 0.80 (0.5-1.4) mg/dL Estim Creat Clear Calc 117.9 Estimated GFR > 60 Random Glucose 94 (60-115) mg/dL Calcium 9.3 (8.4-10.2) mg/dL Total Bilirubin 0.6 (0.0-1.0) mg/dL AST 34 (5-37) U/L ALT 41 H (0-40) U/L Alkaline Phosphatase 102 (39-117) U/L Total Protein 7.2 (6.5-8.0) g/dL Albumin 4.2 (3.5-5.0) g/dL Ethyl Alcohol < 10 mg/dL External Record Review External record reviewed: Outpatient record and Prior outpatient labs Discharge Plan Discharge Clinical Impression: Seizure disorder Patient Disposition: Home, Self-Care Instructions: Seizures After Traumatic Brain Injury (ED) Additional Instructions: Follow-up with your neurologist. You have gabapentin and lisinopril waiting for you at [facility], this is dated 01/14 and you should go pick it up. Return to the ER for any worsening symptoms. Prescriptions: No Action valacyclovir 1 gram tablet 1,000 mg PO Q12H 10 Days Qty: 20 0RF metoclopramide HCl [Reglan] 10 mg tablet 10 mg PO Q6H PRN (Reason: nausea and vomiting) Qty: 7 0RF prochlorperazine maleate [Compazine] 5 mg tablet 5 mg PO BID PRN (Reason: nausea and vomiting) Qty: 10 0RF dicyclomine 20 mg tablet 20 mg PO QID PRN (Reason: abdominal pain) Qty: 12 0RF ondansetron 4 mg tablet,disintegrating 4 mg PO Q6-8H PRN (Reason: nausea and vomiting) Qty: 7 0RF ondansetron 4 mg tablet,disintegrating 4 mg PO Q6-8H PRN (Reason: nausea and vomiting) Qty: 7 0RF Gaviscon Extra Strength 254-237.5 mg/5 mL suspension 10 ml PO QID PRN (Reason: dyspepsia) Qty: 355 0RF ondansetron 4 mg tablet,disintegrating 4 mg PO Q6H Qty: 14 0RF sucralfate 1 gram tablet 1 g PO BID Qty: 60 0RF ondansetron 4 mg tablet,disintegrating 4 mg PO BID PRN (Reason: nausea and vomiting) Qty: 10 0RF ondansetron 4 mg tablet,disintegrating 2 mg PO Q6-8H PRN promethazine 12.5 mg tablet 12.5 mg PO Q6-8H pantoprazole 40 mg tablet,delayed release (DR/EC) 40 mg PO BID sucralfate 1 gram tablet 1 g PO QID albuterol sulfate [ProAir HFA] 90 mcg/actuation HFA aerosol inhaler 0 mcg inhalation nifedipine 30 mg tablet extended release 30 mg PO DAILY aripiprazole 15 mg tablet 15 mg PO DAILY nifedipine 30 mg tablet extended release 24hr 30 mg PO DAILY omeprazole 20 mg capsule,delayed release(DR/EC) 20 mg PO BID tamsulosin 0.4 mg capsule 0.4 mg PO DAILY lidocaine 4 % cream topical diazepam 5 mg tablet 5 mg PO BID PRN alum-mag hydroxide-simeth [Mintox Maximum Strength] 400-400-40 mg/5 mL suspension 20 ml PO QID PRN cetirizine 10 mg tablet 10 mg PO DAILY PRN (Reason: allergies) lisinopril 10 mg tablet 10 mg PO DAILY hydroxyzine pamoate 100 mg capsule 100 mg PO BEDTIME PRN (Reason: insomnia) nystatin 100,000 unit/gram powder topical BID gabapentin 600 mg tablet 600 mg PO TID famotidine 20 mg tablet 20 mg PO BEDTIME gabapentin 600 mg tablet 600 mg PO TID 90 Days Qty: 270 1RF
[2023-01-17 19:29] VITALS: BP 124/92; PULSE 56; RESP 18; O2SAT 97
== END 2023-01-17 19:38 | disposition home or self-care (01) ==
PROVIDERS: Emergency Provider Student in an Organized Health Care Education/Training Program
DX: R56.9 Unspecified convulsions (principal); Z79.899 Other long term (current) drug therapy
CPT/HCPCS: 36415; 80053; 80307; 85025; 99283; 99284

== ENCOUNTER 2023-01-20 13:05 | Emergency (ER) | payer OTHER, SELFPAY ==
--- NOTE | ~2023-01-20 | XR_ITS ---
EXAMINATION: PORTABLE CHEST 1 VIEW CLINICAL INFORMATION: sob. COMPARISON: 11/29/2022. TECHNIQUE: Portable frontal view of the chest was obtained. FINDINGS: The lungs are mildly hypoexpanded. No focal infiltrate, effusion, edema, or pneumothorax. Subtle 9 mm nodular opacity projecting over the right lung apex was not present on the recent prior chest x-ray and may be artifactual or external to the patient. Cardiac and mediastinal silhouettes are within normal limits for technique. No acute bony abnormality seen. XR/XR chest 1V IMPRESSION: No evidence of acute disease. Subtle 9 mm nodular opacity projecting over the right lung apex was not present on the recent prior chest x-ray and may be artifactual or external to the patient. Repeat true PA and lateral view of the chest may be helpful. If this finding persists, CT scan of the chest could be obtained
--- NOTE | ~2023-01-20 | CT_ITS ---
EXAMINATION: CT CHEST WITH CONTRAST CLINICAL INFORMATION: Cough and shortness of breath COMPARISON: Chest radiograph earlier today Subtle 9 mm nodular opacity projecting over the right lung apex was not present on the recent prior chest x-ray and may be artifactual or external to the patient. Repeat true PA and lateral view of the chest may be helpful. If this finding persists, CT scan of the chest could be obtained TECHNIQUE: Multidetector volumetric CT imaging of the chest was obtained after the administration of 65 mL of Omnipaque 350 intravenous contrast without immediate adverse reactions. Axial MIP volume rendering provided. Sagittal and coronal reformatted images were obtained. This CT examination was performed using dose optimization techniques as appropriate, variously including the following: *Automated exposure control *Adjustment of mA and/or kV according to patient size (this includes techniques or standardized protocols for targeted exams where dose is matched to indication/reason for exam; i.e. extremities or head) *Use of iterative reconstruction technique DLP: 249 mGy-cm FINDINGS: LUNGS: There is a calcified granuloma present in the right upper lobe anteriorly The lungs are otherwise clear with no evidence of worrisome inflammation or nodules. MEDIASTINUM: There is a fat and soft tissue density mass present in the anterior mediastinum measuring 2.5 x 1.8 x 2.7 cm that probably represents residual thymus. No mediastinal or hilar lymphadenopathy. Heart size normal. No coronary calcium. PLEURA: There is no pleural effusion. No pleural mass or thickening. AXILLA: No lymphadenopathy. UPPER ABDOMEN: There is probable hepatic steatosis. The spleen is enlarged measuring at least 13 cm. OSSEOUS STRUCTURES: A hemangioma present in the T10 vertebral body. CT/CT chest w IV con IMPRESSION: 1. A cause for the patient's cough and shortness of breath has not been found. 2. Incidental note made of a calcified granuloma in the right upper lobe, probable residual thymus, hepatic steatosis and mild splenomegaly. Fleischner guidelines were followed.
[2023-01-20 13:16] VITALS: BP 122/78; PULSE 98; O2SAT 98
[2023-01-20 14:10] VITALS: BP 140/92; PULSE 108; RESP 18; TEMP 37; O2SAT 96; BMI 28.3
--- NOTE | 2023-01-20 14:15 | ED.GENADULT ---
HPI - General Adult General Chief complaint: General Medical Stated complaint: COUGH W/ THROAT AND LUNG PAIN Time Seen by Provider: 01/20/23 16:34 Source: patient Mode of arrival: ambulatory Limitations: no limitations History of Present Illness HPI narrative: 37-year-old male history of seizure disorder, bipolar disorder, TBI, presenting to the emergency department fatigue, malaise, myalgias, cough, sore throat, for the past few days. Patient reports that he has been coughing so much that he noticed blood-tinged sputum however not a lot of blood. Patient reports he feels terrible, he attributes this to his CPAP machine which he has been using for the past 3 months, he denies shortness of breath, chest pain. He reports he had a few episodes of nausea and vomiting this morning, diffuse body aches and pains. He also reports frequent urination. He denies fevers, chill, headache, vision changes, dizziness, abdominal pain. No recent travel, no hx of clots, not on hormone replacement therapy, no recent surgery or sedintary lifestyle, lower extremity pain or swelling, former smoker not current smoker. Related Data Home Medications Medication Instructions Recorded Confirmed albuterol sulfate 90 mcg/actuation 0 mcg inhalation 03/20/22 05/15/22 aerosol inhaler (ProAir HFA) aripiprazole 15 mg tablet 15 mg PO DAILY 03/20/22 05/15/22 diazepam 5 mg tablet 5 mg PO BID PRN 03/20/22 05/15/22 lidocaine 4 % topical cream g topical 03/20/22 05/15/22 nifedipine 30 mg tablet,extended 30 mg PO DAILY 03/20/22 05/15/22 release nifedipine 30 mg tablet,extended 30 mg PO DAILY 03/20/22 release 24 hr omeprazole 20 mg capsule,delayed 20 mg PO BID 03/20/22 05/15/22 release ondansetron 4 mg disintegrating 2 mg PO Q6-8H PRN 03/20/22 05/15/22 tablet pantoprazole 40 mg tablet,delayed 40 mg PO BID 03/20/22 05/15/22 release promethazine 12.5 mg tablet 12.5 mg PO Q6-8H 03/20/22 sucralfate 1 gram tablet 1 g PO QID 03/20/22 tamsulosin 0.4 mg capsule 0.4 mg PO DAILY 03/20/22 aluminum-mag hydroxide-simethicone 20 ml PO QID PRN 05/15/22 05/15/22 400 mg-400 mg-40 mg/5 mL oral susp (Mintox Maximum Strength) cetirizine 10 mg tablet 10 mg PO DAILY PRN allergies 01/10/23 famotidine 20 mg tablet 20 mg PO BEDTIME 01/10/23 gabapentin 600 mg tablet 600 mg PO TID seizure 01/10/23 01/10/23 hydroxyzine pamoate 100 mg capsule 100 mg PO BEDTIME PRN insomnia 01/10/23 lisinopril 10 mg tablet 10 mg PO DAILY 01/10/23 nystatin 100,000 unit/gram topical topical BID 01/10/23 powder Previous Rx's Medication Instructions Recorded metoclopramide HCl 10 mg tablet 10 mg PO Q6H PRN nausea and 02/18/21 (Reglan) vomiting #7 tabs valacyclovir 1 gram tablet 1,000 mg PO Q12H 10 days #20 tabs 02/24/21 dicyclomine 20 mg tablet 20 mg PO QID PRN abdominal pain 07/29/22 #12 tabs ondansetron 4 mg disintegrating 4 mg PO Q6-8H PRN nausea and 07/29/22 tablet vomiting #7 tabs prochlorperazine maleate 5 mg 5 mg PO BID PRN nausea and 08/20/22 tablet (Compazine) vomiting #10 tabs ondansetron 4 mg disintegrating 4 mg PO Q6-8H PRN nausea and 10/16/22 tablet vomiting #7 tabs ondansetron 4 mg disintegrating 4 mg PO Q6H #14 tabs 12/05/22 tablet sucralfate 1 gram tablet 1 g PO BID #60 tabs 12/11/22 aluminum hydrox-magnesium carb 254 10 ml PO QID PRN dyspepsia #355 mL 12/18/22 mg-237.5 mg/5 mL oral suspension (Gaviscon Extra Strength) ondansetron 4 mg disintegrating 4 mg PO BID PRN nausea and 12/18/22 tablet vomiting #10 tabs gabapentin 600 mg tablet 600 mg PO TID 90 days #270 tabs 01/10/23 Magic Mouthwash 5 ml PO TID #240 mL 01/20/23 Diphen/Lido/Antacid 1:1:1 240 mL suspension levofloxacin 750 mg tablet 750 mg PO DAILY 7 days #7 tabs 01/20/23 Allergies Allergy/AdvReac Type Severity Reaction Status Date / Time amoxicillin Allergy Vomiting Verified 01/10/23 14:06 heparin Allergy Hives Verified 01/10/23 14:06 lamotrigine [From Lamictal] Allergy Hives Verified 01/10/23 14:06 levetiracetam [From Keppra] Allergy Hives Verified 01/10/23 14:06 Review of Systems Review of Systems: Constitutional : No Weight loss, No Fever, No Chills, + Fatigue, + Malaise ENT/Mouth : + sore throat, No Rhinorrhea Eyes: No Eye Pain, No Swelling, No Redness Cardiovascular : No Chest Pain, No SOB, No Dyspnea on Exertion, No Orthopnea, No Edema, No Palpitations Respiratory : + Cough, No Sputum, No Wheezing Gastrointestinal : No Nausea, No Vomiting, No Diarrhea, No Constipation, No abdominal Pain, No Hematochezia, No Melena Genitourinary : No Dysuria, + Urinary Frequency, No Hematuria, Musculoskeletal : No joint pain, + Myalgias, No Joint Swelling Skin : No Skin Lesions, No rash Neuro : No Weakness, No Numbness, No Dizziness, No Headache Psych : No Anxiety/Panic, No Depression All other systems reviewed and are negative Yes all other systems are reviewed and are negative FOR[facility]LY [facility] Past Medical History Attestation statement: The following information was validated with the patient. Source: old records reviewed and nursing notes reviewed Medical History Back pain Bipolar 1 disorder Neck pain PTSD (post-traumatic stress disorder) Seizure Seizure disorder Sleep disorder TBI (traumatic brain injury) Surgical History Hx of hernia repair Family History Family History Mother Cancer Family/Other No problems noted. Social History Social History Alcohol intake: former Patient Tobacco Use Status: Former Tobacco user Smoked in Last 30 Days: No Advance Directives: No Advance Directives Information Provided: No Physical Exam ED Vital Signs: Vital Signs - 24 hr 01/20/23 14:10 01/20/23 18:47 01/20/23 20:00 Temperature 98.6 F 99.0 F 98.2 F Pulse Rate 108 H 89 93 Respiratory Rate 18 20 16 Blood Pressure 140/92 H 140/82 H 132/90 H Pulse Oximetry 96 98 98 Oxygen Delivery Method Room Air Room Air Room Air BMI result Body Mass Index 28.3 vss Appearance: Alert.? Oriented X3.? No acute distress.? Head: Normocephalic, atraumatic, no step-offs or deformities Eyes: Pupils equal, round and reactive to light.? ENT: Pharynx w/ errythema to posterior pharynx. No edema, exudates or abscess . Speaking in full sentences controlling secretions well. Neck: Normal inspection.? Neck supple.? CVS: Normal heart rate and rhythm.? Pulses normal.? Respiratory: No respiratory distress.? Breath sounds normal.? Abdomen: Soft and nontender.? Skin: Skin warm and dry.? Normal skin color.? Normal skin turgor.? Extremities: No lower extremity edema.? No calf ttp. 5/5 strength to bilateral upper and lower extremities Neuro: Oriented X 3.? No motor deficit.? No sensory deficit. CN 2-12 intact Course Course Course Narrative: 37-year-old male presents for evaluation of sore throat, cough. He attributed to his CPAP machine which he has had for the last 90 days. His physical exam is reassuring. Minimal retropharyngeal erythema. Lungs are clear to auscultation. Strep throat swab ordered. Reevaluation(s) Reevaluation #1: Patient now tells me that his PCP prescribed him oral steroids for his symptoms, he has not picked them up yet. My plan is to discharge him home w/ levofloxacin, will cover for possible URI and UTI. Patient saturating well on RA, well appearing w/o risk factors for PE unlikley PE. On initial vitals, patient was in triage, anxious, suspect tachycardic secondary to anxiety, when vitals were repeated patient was no longer tachycardic, he is calm at this time. Patient is PERC negative, initial tachycardia from anxiety. Patient adamant on laboratory studies, now complaining more shortness of breath, chest CT ordered. Sign out given to Nickolas TEIXEIRA Time: 18:37 Reevaluation #2: Still awaiting CT scan. Sign-out given to Lyle TEIXEIRA Time: 21:05 Reevaluation #3: CT/CT chest w IV con IMPRESSION: 1.? A cause for the patient's cough and shortness of breath has not been found. 2.? Incidental note made of a calcified granuloma in the right upper lobe, probable residual thymus, hepatic steatosis and mild splenomegaly. No acute abnormalities at this time, calcified granuloma likely chronic in nature. Patient to be discharged, currently with no difficulty breathing, no room air hypoxia, speaking clear full sentences. Time: 21:44 Medications Administered Discontinued Medications Generic Name Dose Route Start Last Admin Trade Name Freq PRN Reason Stop Dose Admin Acetaminophen 650 mg 01/20/23 18:43 01/20/23 20:19 Acetaminophen 325 Mg Tablet PO 01/20/23 18:44 650 mg ONCE ONE Administration Iohexol 100 ml 01/20/23 20:37 01/20/23 20:37 Iohexol 350 Mg/Ml 100 Ml Infus..Btl IV 01/20/23 20:38 65 ml ONCE ONE Administration Medical Decision Making Medical Decision Making [facility] Narrative: 1642 37-year-old male presents with Viral like symptoms, with an overwhelmingly positive review of systems. Pharynx w/ errythema to posterior pharynx. No edema, exudates or abscess . Speaking in full sentences controlling secretions well. likely viral illness. I do not suspect strep throat, retropharyngeal abscess, peritonsillar abscess, epiglottitis, threatened airway. Cough likely viral, I do not suspect pneumonia, PE. Will rule out viral illnesses. No chest pain unlikely ACS. due to frequent urination will rule out UTI, no signs of acute abdomen, pyelonephritis. blood tinged sputum likely secondary to cough/viral illness/ bronchitis I do not suspect upper GI bleed, tuberculosis. Plans viral testing, UA, chest x-ray Differential Diagnosis Differential Diagnoses: The differential diagnosis associated with the presentation includes likely viral illness. I do not suspect strep throat, retropharyngeal abscess, peritonsillar abscess, epiglottitis, threatened airway. Cough likely viral, I do not suspect pneumonia, PE. Will rule out viral illnesses. No chest pain unlikely ACS. due to frequent urination will rule out UTI, no signs of acute abdomen, pyelonephritis.blood tinged sputum likely secondary to cough/viral illness/ bronchitis I do not suspect upper GI bleed, tuberculosis. Admission/Observation Consideration of admission/observation: Escalation of care including admission/observation considered Unlikely Lab Data MDM Lab Attestation statement: I reviewed the patient's lab results. 01/20/23 19:13 01/20/23 19:13 Labs: Lab Results 01/20/23 01/20/23 01/20/23 Range/Units 14:17 18:07 18:07 WBC (4.8-10.8) X10*3/uL RBC (4.60-5.80) X10*6/uL Hgb (14.0-18.0) g/dl Hct (42.0-52.0) % MCV (80.0-98.0) fL MCH (27.0-33.0) pg MCHC (31.0-36.0) g/dl RDW (11.0-16.0) % Plt Count (160-400) X10*3/uL MPV (9.4-12.4) fL Immature Gran % (Auto) (0.0-0.4) % Neut % (Auto) (45-73) % Lymph % (Auto) (20-40) % [place] % (Auto) (2-11) % Eos % (Auto) (0-4) % Baso % (Auto) (0-2) % Lymph # (Auto) (1.2-4.9) X10*3/uL [place] # (Auto) (0.1-1.2) X10*3/uL Eos # (Auto) (0.0-0.4) X10*3/uL Baso # (Auto) (0.0-0.2) X10*3/uL Abs Immat Gran (auto) (0.00-0.03) X10*3/uL Absolute Neuts (auto) (2.0-8.3) x10*3/uL Absolute Nucleated RBC (0.0-0.012) X10*3/uL Nucleated RBC % (auto) (0.0-0.2) /100WBC Sodium (135-145) mmol/L Potassium (3.3-5.1) mmol/L Chloride (96-108) mmol/L Carbon Dioxide (22-29) mmol/L Anion Gap (12-20) BUN (9-16) mg/dL Creatinine (0.5-1.4) mg/dL Estim Creat Clear Calc Estimated GFR Random Glucose (60-115) mg/dL Lactic Acid (0.5-2.0) mmol/L Calcium (8.4-10.2) mg/dL Magnesium (1.6-2.6) mg/dL Total Bilirubin (0.0-1.0) mg/dL AST (5-37) U/L ALT (0-40) U/L Alkaline Phosphatase (39-117) U/L Total Protein (6.5-8.0) g/dL Albumin (3.5-5.0) g/dL Urine Color Urine Appearance Urine pH (5.0-9.0) Ur Specific [place] (1.005-1.025) Urine Protein (Neg-Trace) mg/dL Urine Glucose (UA) (Negative) mg/dL Urine Ketones (Negative) mg/dL Urine Blood (Negative) Urine Nitrite (Negative) Ur Leukocyte Esterase (Negative) Urine RBC (0-2) /HPF Urine WBC (0-5) /HPF Ur Squamous Epith Cells (0-2) /HPF Urine Bacteria (None Seen) Hyaline Casts (0-2) /LPF COVID-19 (ADEN) Negative (Negative) COVID-19 Clin Com See Note Influenza Type A (JUAN MANUEL) Negative (Negative) Influenza Type B (JUAN MANUEL) Negative (Negative) Influenza A & B Note See Note S. pyogenes GrpA JUAN MANUEL Negative (Negative) 01/20/23 01/20/23 01/20/23 Range/Units 18:07 19:13 19:13 WBC 6.9 (4.8-10.8) X10*3/uL RBC 5.21 (4.60-5.80) X10*6/uL Hgb 14.5 (14.0-18.0) g/dl Hct 43.8 (42.0-52.0) % MCV 84.1 (80.0-98.0) fL MCH 27.8 (27.0-33.0) pg MCHC 33.1 (31.0-36.0) g/dl RDW 12.9 (11.0-16.0) % Plt Count 266 (160-400) X10*3/uL MPV 10.1 (9.4-12.4) fL Immature Gran % (Auto) 0.3 (0.0-0.4) % Neut % (Auto) 76.5 H (45-73) % Lymph % (Auto) 11.5 L (20-40) % [place] % (Auto) 8.6 (2-11) % Eos % (Auto) 2.5 (0-4) % Baso % (Auto) 0.6 (0-2) % Lymph # (Auto) 0.8 L (1.2-4.9) X10*3/uL [place] # (Auto) 0.6 (0.1-1.2) X10*3/uL Eos # (Auto) 0.2 (0.0-0.4) X10*3/uL Baso # (Auto) 0.0 (0.0-0.2) X10*3/uL Abs Immat Gran (auto) 0.02 (0.00-0.03) X10*3/uL Absolute Neuts (auto) 5.3 (2.0-8.3) x10*3/uL Absolute Nucleated RBC 0.000 (0.0-0.012) X10*3/uL Nucleated RBC % (auto) 0.0 (0.0-0.2) /100WBC Sodium 141 (135-145) mmol/L Potassium 3.7 (3.3-5.1) mmol/L Chloride 107 (96-108) mmol/L Carbon Dioxide 21 L (22-29) mmol/L Anion Gap 17 (12-20) BUN 19 H (9-16) mg/dL Creatinine 0.79 (0.5-1.4) mg/dL Estim Creat Clear Calc 115.5 Estimated GFR > 60 Random Glucose 106 (60-115) mg/dL Lactic Acid (0.5-2.0) mmol/L Calcium 9.6 (8.4-10.2) mg/dL Magnesium 2.0 (1.6-2.6) mg/dL Total Bilirubin 0.8 (0.0-1.0) mg/dL AST 32 (5-37) U/L ALT 39 (0-40) U/L Alkaline Phosphatase 102 (39-117) U/L Total Protein 7.8 (6.5-8.0) g/dL Albumin 4.5 (3.5-5.0) g/dL Urine Color Yellow Urine Appearance Cloudy Urine pH 8.5 (5.0-9.0) Ur Specific [place] 1.015 (1.005-1.025) Urine Protein Negative (Neg-Trace) mg/dL Urine Glucose (UA) Negative (Negative) mg/dL Urine Ketones Negative (Negative) mg/dL Urine Blood Negative (Negative) Urine Nitrite Positive H (Negative) Ur Leukocyte Esterase Negative (Negative) Urine RBC 0-2 (0-2) /HPF Urine WBC 0-5 (0-5) /HPF Ur Squamous Epith Cells 0-2 (0-2) /HPF Urine Bacteria 3+ (None Seen) Hyaline Casts 0-2 (0-2) /LPF COVID-19 (ADEN) (Negative) COVID-19 Clin Com Influenza Type A (JUAN MANUEL) (Negative) Influenza Type B (JUA NMANUEL) (Negative) Influenza A & B Note S. pyogenes GrpA JUAN MANUEL (Negative) 01/20/23 Range/Units 19:14 WBC (4.8-10.8) X10*3/uL RBC (4.60-5.80) X10*6/uL Hgb (14.0-18.0) g/dl Hct (42.0-52.0) % MCV (80.0-98.0) fL MCH (27.0-33.0) pg MCHC (31.0-36.0) g/dl RDW (11.0-16.0) % Plt Count (160-400) X10*3/uL MPV (9.4-12.4) fL Immature Gran % (Auto) (0.0-0.4) % Neut % (Auto) (45-73) % Lymph % (Auto) (20-40) % [place] % (Auto) (2-11) % Eos % (Auto) (0-4) % Baso % (Auto) (0-2) % Lymph # (Auto) (1.2-4.9) X10*3/uL [place] # (Auto) (0.1-1.2) X10*3/uL Eos # (Auto) (0.0-0.4) X10*3/uL Baso # (Auto) (0.0-0.2) X10*3/uL Abs Immat Gran (auto) (0.00-0.03) X10*3/uL Absolute Neuts (auto) (2.0-8.3) x10*3/uL Absolute Nucleated RBC (0.0-0.012) X10*3/uL Nucleated RBC % (auto) (0.0-0.2) /100WBC Sodium (135-145) mmol/L Potassium (3.3-5.1) mmol/L Chloride (96-108) mmol/L Carbon Dioxide (22-29) mmol/L Anion Gap (12-20) BUN (9-16) mg/dL Creatinine (0.5-1.4) mg/dL Estim Creat Clear Calc Estimated GFR Random Glucose (60-115) mg/dL Lactic Acid 1.5 (0.5-2.0) mmol/L Calcium (8.4-10.2) mg/dL Magnesium (1.6-2.6) mg/dL Total Bilirubin (0.0-1.0) mg/dL AST (5-37) U/L ALT (0-40) U/L Alkaline Phosphatase (39-117) U/L Total Protein (6.5-8.0) g/dL Albumin (3.5-5.0) g/dL Urine Color Urine Appearance Urine pH (5.0-9.0) Ur Specific [place] (1.005-1.025) Urine Protein (Neg-Trace) mg/dL Urine Glucose (UA) (Negative) mg/dL Urine Ketones (Negative) mg/dL Urine Blood (Negative) Urine Nitrite (Negative) Ur Leukocyte Esterase (Negative) Urine RBC (0-2) /HPF Urine WBC (0-5) /HPF Ur Squamous Epith Cells (0-2) /HPF Urine Bacteria (None Seen) Hyaline Casts (0-2) /LPF COVID-19 (ADEN) (Negative) COVID-19 Clin Com Influenza Type A (JUAN MANUEL) (Negative) Influenza Type B (JUAN MANUEL) (Negative) Influenza A & B Note S. pyogenes GrpA JUAN MANUEL (Negative) Independent Interpretation I performed an independent interpretation of an: Plain X-Ray Radiology Impression Discussion of test interpretation with radiology: I have reviewed the radiologist's reading. Core Measures AMI core measures followed: Yes Measure exclusions: not indicated Critical Care Time Critical Care Time Critical Care Time: No Discharge Plan Discharge Clinical Impression: Viral illness, Acute UTI Patient Disposition: Home, Self-Care Instructions: Viral Syndrome (ED) Additional Instructions: Take your medications as prescribed. If you were prescribed antibiotics today, it is important that you take your medication to their entirety, do not skip any doses, do not finish them early. Follow-up with your primary care provider this week. Follow up with urology for urinary tract infection Return to the emergency department with new or worsening symptoms. Such as fevers, chills, chest pain, shortness of breath, nausea, vomiting, dizziness, headache, vision changes, lethargy In case of emergency call 911 Levofloxacin is an antibiotic that belongs to a class called fluoroquinolones, it has a black box warning of tendon rupture, if you experience pain around your joints, please discontinue this medication and seek medical attention immediately. Please do not participate and high-intensity training, sports or vigorous exercise while taking this medication. XR/XR chest 1V IMPRESSION: No evidence of acute disease. Subtle 9 mm nodular opacity projecting over the right lung apex was not present on the recent prior chest x-ray and may be artifactual or external to the patient. Repeat true PA and lateral view of the chest may be helpful. If this finding persists, CT scan of the chest could be obtained ? Prescriptions: New Magic Mouthwash Diphen/Lido/Antacid 1:1:1 240 mL suspension 5 ml PO TID Qty: 240 0RF Rx Instructions: Lidocaine Viscous 2 % 80mL; diphenhydramine 12.5 mg/5 mL 80mL; aluminum-mag hydrox-simeth [id number]/5mL 80mL Swish and spit, do not swallow levofloxacin 750 mg tablet 750 mg PO DAILY 7 Days Qty: 7 0RF No Action valacyclovir 1 gram tablet 1,000 mg PO Q12H 10 Days Qty: 20 0RF metoclopramide HCl [Reglan] 10 mg tablet 10 mg PO Q6H PRN (Reason: nausea and vomiting) Qty: 7 0RF prochlorperazine maleate [Compazine] 5 mg tablet 5 mg PO BID PRN (Reason: nausea and vomiting) Qty: 10 0RF dicyclomine 20 mg tablet 20 mg PO QID PRN (Reason: abdominal pain) Qty: 12 0RF ondansetron 4 mg tablet,disintegrating 4 mg PO Q6-8H PRN (Reason: nausea and vomiting) Qty: 7 0RF ondansetron 4 mg tablet,disintegrating 4 mg PO Q6-8H PRN (Reason: nausea and vomiting) Qty: 7 0RF Gaviscon Extra Strength 254-237.5 mg/5 mL suspension 10 ml PO QID PRN (Reason: dyspepsia) Qty: 355 0RF ondansetron 4 mg tablet,disintegrating 4 mg PO Q6H Qty: 14 0RF sucralfate 1 gram tablet 1 g PO BID Qty: 60 0RF ondansetron 4 mg tablet,disintegrating 4 mg PO BID PRN (Reason: nausea and vomiting) Qty: 10 0RF ondansetron 4 mg tablet,disintegrating 2 mg PO Q6-8H PRN promethazine 12.5 mg tablet 12.5 mg PO Q6-8H pantoprazole 40 mg tablet,delayed release (DR/EC) 40 mg PO BID sucralfate 1 gram tablet 1 g PO QID albuterol sulfate [ProAir HFA] 90 mcg/actuation HFA aerosol inhaler 0 mcg inhalation nifedipine 30 mg tablet extended release 30 mg PO DAILY aripiprazole 15 mg tablet 15 mg PO DAILY nifedipine 30 mg tablet extended release 24hr 30 mg PO DAILY omeprazole 20 mg capsule,delayed release(DR/EC) 20 mg PO BID tamsulosin 0.4 mg capsule 0.4 mg PO DAILY lidocaine 4 % cream topical diazepam 5 mg tablet 5 mg PO BID PRN alum-mag hydroxide-simeth [Mintox Maximum Strength] 400-400-40 mg/5 mL suspension 20 ml PO QID PRN cetirizine 10 mg tablet 10 mg PO DAILY PRN (Reason: allergies) lisinopril 10 mg tablet 10 mg PO DAILY hydroxyzine pamoate 100 mg capsule 100 mg PO BEDTIME PRN (Reason: insomnia) nystatin 100,000 unit/gram powder topical BID gabapentin 600 mg tablet 600 mg PO TID famotidine 20 mg tablet 20 mg PO BEDTIME gabapentin 600 mg tablet 600 mg PO TID 90 Days Qty: 270 1RF Referrals: [facility] [place] [facility] [Provider Group] - 2 days ED Physician,Generic [Physician] - 2 days Stand Alone Forms: Work/School Release
[2023-01-20 14:38] LABS: IDNOW Serial# 08D9AD1C; Strep A Nucleic Acid Negative (Negative)
[2023-01-20 18:16] LABS: Appearance Urine Cloudy; Color Urine Yellow; Glucose Urine UA Negative (Negative); Leukocyte Esterase Urine Negative (Negative); Nitrite Urine Positive (Negative); PH 8.5 (5.0-9.0); Specific Gravity - Urine 1.015 (1.005-1.025); UMIC TRIGGER UACC YES; Urine Blood Negative (Negative); Urine Ketones Negative (Negative); Urine Protein Negative (Neg-Trace)
[2023-01-20 18:19] LABS: Bacteria Urine 3+ (None Seen); Hyaline Casts Urine 0-2 /LPF (0-2); RBC Urine 0-2 /HPF (0-2); Squamous Epithelial Cell Urine 0-2 /HPF (0-2); UACC Culture Trigger YES; WBC Urine 0-5 /HPF (0-5)
[2023-01-20 18:30] LABS: COVID-19 Test Negative (Negative); IDNOW Serial# 08D9AD1C; IDNOW Serial# 9DB6401D; Influenza A Negative (Negative); Influenza B2 Negative (Negative)
[2023-01-20 18:47] VITALS: BP 140/82; PULSE 89; RESP 20; TEMP 37.2; O2SAT 98
[2023-01-20 19:19] LABS: MANUAL DIFF FLAG NO
[2023-01-20 19:22] LABS: Basophils Percent Auto 0.6 % (0-2); Eosinophils Absolute Auto 0.2 X10*3/uL (0.0-0.4); Eosinophils Percent Auto 2.5 % (0-4); Hematocrit 43.8 % (42.0-52.0); Hemoglobin 14.5 g/dl (14.0-18.0); Imm Gran Abs Auto 0.02 X10*3/uL (0.00-0.03); Imm Gran Pct Auto 0.3 % (0.0-0.4); Lymphocytes Absolute Auto 0.8 X10*3/uL (1.2-4.9); Lymphocytes Percent Auto 11.5 % (20-40); Mean Corpuscular HGB Conc 33.1 g/dl (31.0-36.0); Mean Corpuscular Hemoglobin 27.8 pg (27.0-33.0); Mean Corpuscular Volume 84.1 fL (80.0-98.0); Mean Platelet Volume 10.1 fL (9.4-12.4); Monocytes Absolute Auto 0.6 X10*3/uL (0.1-1.2); Monocytes Percent Auto 8.6 % (2-11); Neutrophils Absolute Auto 5.3 x10*3/uL (2.0-8.3); Neutrophils Percent Auto 76.5 % (45-73); Platelet Count 266 X10*3/uL (160-400); Red Blood Count 5.21 X10*6/uL (4.60-5.80); Red Cell Distribution Width 12.9 % (11.0-16.0); White Blood Count 6.9 X10*3/uL (4.8-10.8)
[2023-01-20 19:30] LABS: Lactic Acid 1.5 mmol/L (0.5-2.0)
[2023-01-20 19:33] LABS: Alanine Aminotransferase 39 U/L (0-40); Albumin Level 4.5 g/dL (3.5-5.0); Alkaline Phosphatase 102 U/L (39-117); Anion Gap 17 (12-20); Aspartate Amino Transferase 32 U/L (5-37); Bilirubin Total 0.8 mg/dL (0.0-1.0); Blood Urea Nitrogen 19 mg/dL (9-16); Calcium 9.6 mg/dL (8.4-10.2); Carbon Dioxide 21 mmol/L (22-29); Chloride 107 mmol/L (96-108); Creatinine Clr Calc Pharmacy 115.5; Estimated Glomerular Filt Rate > 60; Glucose Random 106 mg/dL (60-115); Potassium 3.7 mmol/L (3.3-5.1); Sodium 141 mmol/L (135-145); Total Protein 7.8 g/dL (6.5-8.0)
[2023-01-20 20:00] VITALS: BP 132/90; PULSE 93; RESP 16; TEMP 36.8; O2SAT 98
[2023-01-20] MEDS: Acetaminophen 325 MG TABLET 650 MG PO (20:19)
[2023-01-20] MEDS: iohexoL 350 MG/ML 100 ML INFUS..BTL IV (20:37)
== END 2023-01-20 22:02 | disposition home or self-care (01) ==
PROVIDERS: Physician Assistant; Emergency Provider Emergency Medicine
DX: B34.9 Viral infection, unspecified (principal); J02.9 Acute pharyngitis, unspecified; R05.9 Cough, unspecified; N39.0 Urinary tract infection, site not specified; Z20.822 Contact with and (suspected) exposure to COVID-19; Z20.828 Contact with and (suspected) exposure to other viral communicable diseases; Z87.891 Personal history of nicotine dependence; Z79.899 Other long term (current) drug therapy; M79.10 Myalgia, unspecified site
CPT/HCPCS: 36415; 71045; 71260; 80053; 81001; 83605; 83735; 85025; 87040; 87086; 87088; 87186; 87502; 87635; 87651; 99284; Q9967

== ENCOUNTER → 2023-01-27 14:48 | Outpatient (BNVA) | payer OTHER, SELFPAY | PROVIDERS: Visit Provider Physician Assistant | DX: S93.402A Sprain of unspecified ligament of left ankle, initial encounter (principal) | CPT/HCPCS: 99202 ==

== ENCOUNTER 2023-02-07 23:37 | Emergency (ER) | payer OTHER, SELFPAY ==
[2023-02-07 23:44] VITALS: BP 113/81; BP 122/76; PULSE 60; PULSE 65; RESP 16; TEMP 36.6; O2SAT 100; O2SAT 96; BMI 55.3
[2023-02-07 23:49] VITALS: BP 113/81; PULSE 65; RESP 16; TEMP 36.6; O2SAT 100
[2023-02-08] VITALS: BP 119/89; PULSE 70; RESP 18; TEMP 36.3; O2SAT 98
--- NOTE | 2023-02-08 00:16 | ED.GENADULT ---
HPI - General Adult General Chief complaint: General Medical Stated complaint: med refill Time Seen by Provider: 02/08/23 00:16 Source: patient Mode of arrival: EMS History of Present Illness HPI narrative: 37-year-old male arrives via EMS with complaints of having run out of his seizure medication but denies any seizure-like activity and also complains of headache. Related Data Home Medications Medication Instructions Recorded Confirmed albuterol sulfate 90 mcg/actuation 0 mcg inhalation 03/20/22 05/15/22 aerosol inhaler (ProAir HFA) aripiprazole 15 mg tablet 15 mg PO DAILY 03/20/22 05/15/22 diazepam 5 mg tablet 5 mg PO BID PRN 03/20/22 05/15/22 lidocaine 4 % topical cream g topical 03/20/22 05/15/22 nifedipine 30 mg tablet,extended 30 mg PO DAILY 03/20/22 05/15/22 release nifedipine 30 mg tablet,extended 30 mg PO DAILY 03/20/22 release 24 hr omeprazole 20 mg capsule,delayed 20 mg PO BID 03/20/22 05/15/22 release ondansetron 4 mg disintegrating 2 mg PO Q6-8H PRN 03/20/22 05/15/22 tablet pantoprazole 40 mg tablet,delayed 40 mg PO BID 03/20/22 05/15/22 release promethazine 12.5 mg tablet 12.5 mg PO Q6-8H 03/20/22 sucralfate 1 gram tablet 1 g PO QID 03/20/22 tamsulosin 0.4 mg capsule 0.4 mg PO DAILY 03/20/22 aluminum-mag hydroxide-simethicone 20 ml PO QID PRN 05/15/22 05/15/22 400 mg-400 mg-40 mg/5 mL oral susp (Mintox Maximum Strength) cetirizine 10 mg tablet 10 mg PO DAILY PRN allergies 01/10/23 famotidine 20 mg tablet 20 mg PO BEDTIME 01/10/23 gabapentin 600 mg tablet 600 mg PO TID seizure 01/10/23 01/10/23 hydroxyzine pamoate 100 mg capsule 100 mg PO BEDTIME PRN insomnia 01/10/23 lisinopril 10 mg tablet 10 mg PO DAILY 01/10/23 nystatin 100,000 unit/gram topical topical BID 01/10/23 powder Previous Rx's Medication Instructions Recorded metoclopramide HCl 10 mg tablet 10 mg PO Q6H PRN nausea and 02/18/21 (Reglan) vomiting #7 tabs valacyclovir 1 gram tablet 1,000 mg PO Q12H 10 days #20 tabs 02/24/21 dicyclomine 20 mg tablet 20 mg PO QID PRN abdominal pain 07/29/22 #12 tabs ondansetron 4 mg disintegrating 4 mg PO Q6-8H PRN nausea and 07/29/22 tablet vomiting #7 tabs prochlorperazine maleate 5 mg 5 mg PO BID PRN nausea and 08/20/22 tablet (Compazine) vomiting #10 tabs ondansetron 4 mg disintegrating 4 mg PO Q6-8H PRN nausea and 10/16/22 tablet vomiting #7 tabs ondansetron 4 mg disintegrating 4 mg PO Q6H #14 tabs 12/05/22 tablet sucralfate 1 gram tablet 1 g PO BID #60 tabs 12/11/22 aluminum hydrox-magnesium carb 254 10 ml PO QID PRN dyspepsia #355 mL 12/18/22 mg-237.5 mg/5 mL oral suspension (Gaviscon Extra Strength) ondansetron 4 mg disintegrating 4 mg PO BID PRN nausea and 12/18/22 tablet vomiting #10 tabs Magic Mouthwash 5 ml PO TID #240 mL 01/20/23 Diphen/Lido/Antacid 1:1:1 240 mL suspension levofloxacin 750 mg tablet 750 mg PO DAILY 7 days #7 tabs 01/20/23 gabapentin 600 mg tablet 600 mg PO TID 90 days #270 tabs 01/28/23 gabapentin 300 mg capsule 300 mg PO TID 30 days #90 caps 02/07/23 gabapentin 600 mg tablet 600 mg PO TID 7 days #21 tabs 02/08/23 Allergies Allergy/AdvReac Type Severity Reaction Status Date / Time amoxicillin Allergy Vomiting Verified 01/27/23 14:59 heparin Allergy Hives Verified 01/27/23 14:59 lamotrigine [From Lamictal] Allergy Hives Verified 01/27/23 14:59 levetiracetam [From Keppra] Allergy Hives Verified 01/27/23 14:59 Review of Systems Review of Systems: Pertinent positives and negatives as stated in HPI PMFSH Past Medical History Source: nursing notes reviewed Medical History Back pain Bipolar 1 disorder Neck pain PTSD (post-traumatic stress disorder) Seizure Seizure disorder Sleep disorder TBI (traumatic brain injury) Surgical History Hx of hernia repair Family History Family History Mother Cancer Family/Other No problems noted. Social History Social History Alcohol intake: former Patient Tobacco Use Status: Former Tobacco user Advance Directives: No Advance Directives Information Provided: No Physical Exam ED Vital Signs: Vital Signs - 24 hr 02/07/23 23:44 02/07/23 23:49 Temperature 97.8 F 97.8 F Pulse Rate 65 65 Respiratory Rate 16 16 Blood Pressure 113/81 113/81 Pulse Oximetry 100 100 Oxygen Delivery Method Room Air Room Air BMI result Body Mass Index 55.3 VITAL SIGNS: Reviewed. GENERAL: Well developed, well nourished, in no acute distress. HEAD: Normocephalic/atraumatic, EYES: PERRLA, EOMI NECK: Supple, no adenopathy LUNGS: Normal breath sounds. No adventitious sounds or accessory muscle use. SpO2<100> CARDIOVASCULAR: Regular rate and rhythm without noted murmurs ABDOMEN: Soft, non-tender, non-distended with bowel sounds. MUSCULOSKELETAL: No tenderness, deformities, or effusions noted on gross inspection. EXTREMITIES: No cyanosis, clubbing or edema. SKIN: Inspection of the skin reveals no rashes NEUROLOGIC: Alert and oriented x 4. Strength and sensation to light touch were grossly intact x 4, cranial nerves 2-12 are grossly intact.. Medical Decision Making Medical Decision Making MDM Narrative: 37-year-old male with history and clinical presentation of seizure disorder and on review of home medications the of the pharmacy listed does appear that patient would have run out of gabapentin which is prescribed by the neurology group. Will provide a 2 week supply with strict instructions that he should follow-up with his neurologist, he was provided with ibuprofen for his headache. Patient ambulates with a steady gait and is nonfocal. Vital signs appear to be stable, he is afebrile and has no acute medical complaints. Discharge Plan Discharge Clinical Impression: Medication refill Patient Disposition: Home, Self-Care Instructions: Medicine Refill (ED), General Headache (ED) Additional Instructions: 1. Follow-up with your neurologist. 2. You have been given a short supply of your gabapentin, but you filled your prescription on January 14 and it was a 30 day supply. Return to the ER for any worsening symptoms. Prescriptions: New gabapentin 600 mg tablet 600 mg PO TID 7 Days Qty: 21 0RF No Action gabapentin 300 mg capsule 300 mg PO TID 30 Days Qty: 90 3RF Rx Instructions: take w/ 600mg tab = 900mg per dose valacyclovir 1 gram tablet 1,000 mg PO Q12H 10 Days Qty: 20 0RF metoclopramide HCl [Reglan] 10 mg tablet 10 mg PO Q6H PRN (Reason: nausea and vomiting) Qty: 7 0RF prochlorperazine maleate [Compazine] 5 mg tablet 5 mg PO BID PRN (Reason: nausea and vomiting) Qty: 10 0RF dicyclomine 20 mg tablet 20 mg PO QID PRN (Reason: abdominal pain) Qty: 12 0RF ondansetron 4 mg tablet,disintegrating 4 mg PO Q6-8H PRN (Reason: nausea and vomiting) Qty: 7 0RF ondansetron 4 mg tablet,disintegrating 4 mg PO Q6-8H PRN (Reason: nausea and vomiting) Qty: 7 0RF Gaviscon Extra Strength 254-237.5 mg/5 mL suspension 10 ml PO QID PRN (Reason: dyspepsia) Qty: 355 0RF ondansetron 4 mg tablet,disintegrating 4 mg PO Q6H Qty: 14 0RF sucralfate 1 gram tablet 1 g PO BID Qty: 60 0RF ondansetron 4 mg tablet,disintegrating 4 mg PO BID PRN (Reason: nausea and vomiting) Qty: 10 0RF Magic Mouthwash Diphen/Lido/Antacid 1:1:1 240 mL suspension 5 ml PO TID Qty: 240 0RF Rx Instructions: Lidocaine Viscous 2 % 80mL; diphenhydramine 12.5 mg/5 mL 80mL; aluminum-mag hydrox-simeth [id number]/5mL 80mL Swish and spit, do not swallow levofloxacin 750 mg tablet 750 mg PO DAILY 7 Days Qty: 7 0RF ondansetron 4 mg tablet,disintegrating 2 mg PO Q6-8H PRN promethazine 12.5 mg tablet 12.5 mg PO Q6-8H pantoprazole 40 mg tablet,delayed release (DR/EC) 40 mg PO BID sucralfate 1 gram tablet 1 g PO QID albuterol sulfate [ProAir HFA] 90 mcg/actuation HFA aerosol inhaler 0 mcg inhalation nifedipine 30 mg tablet extended release 30 mg PO DAILY aripiprazole 15 mg tablet 15 mg PO DAILY nifedipine 30 mg tablet extended release 24hr 30 mg PO DAILY omeprazole 20 mg capsule,delayed release(DR/EC) 20 mg PO BID tamsulosin 0.4 mg capsule 0.4 mg PO DAILY lidocaine 4 % cream topical diazepam 5 mg tablet 5 mg PO BID PRN alum-mag hydroxide-simeth [Mintox Maximum Strength] 400-400-40 mg/5 mL suspension 20 ml PO QID PRN cetirizine 10 mg tablet 10 mg PO DAILY PRN (Reason: allergies) lisinopril 10 mg tablet 10 mg PO DAILY hydroxyzine pamoate 100 mg capsule 100 mg PO BEDTIME PRN (Reason: insomnia) nystatin 100,000 unit/gram powder topical BID gabapentin 600 mg tablet 600 mg PO TID famotidine 20 mg tablet 20 mg PO BEDTIME gabapentin 600 mg tablet 600 mg PO TID 90 Days Qty: 270 1RF Referrals: Kaylene Rodriguez CNP [Nurse Practitioner] -
--- NOTE | 2023-02-08 00:19 | PC.NURSE ---
Pt leg bandages changed. wctm.
== END 2023-02-08 00:41 | disposition home or self-care (01) ==
PROVIDERS: Emergency Provider Student in an Organized Health Care Education/Training Program
DX: Z76.0 Encounter for issue of repeat prescription (principal); Z79.899 Other long term (current) drug therapy
CPT/HCPCS: 99283; 99284

== ENCOUNTER 2023-02-24 17:47 | Emergency (ER) | payer OTHER, SELFPAY ==
[2023-02-24 17:57] VITALS: BP 130/88; PULSE 87; O2SAT 98
--- NOTE | 2023-02-24 17:57 | ED_ITS ---
HPI - General Adult General Chief complaint: Headache Stated complaint: nausea and migraine, per ems Time Seen by Provider: 02/24/23 20:24 Related Data Home Medications Medication Instructions Recorded Confirmed albuterol sulfate 90 mcg/actuation 0 mcg inhalation 03/20/22 03/13/23 aerosol inhaler (ProAir HFA) aripiprazole 15 mg tablet 15 mg PO DAILY 03/20/22 03/13/23 diazepam 5 mg tablet 5 mg PO BID PRN 03/20/22 03/13/23 lidocaine 4 % topical cream g topical 03/20/22 03/13/23 nifedipine 30 mg tablet,extended 30 mg PO DAILY 03/20/22 03/13/23 release 24 hr pantoprazole 40 mg tablet,delayed 40 mg PO BID 03/20/22 03/13/23 release promethazine 12.5 mg tablet 12.5 mg PO Q6-8H 03/20/22 03/13/23 tamsulosin 0.4 mg capsule 0.4 mg PO DAILY 03/20/22 03/13/23 aluminum-mag hydroxide-simethicone 20 ml PO QID PRN 05/15/22 03/13/23 400 mg-400 mg-40 mg/5 mL oral susp (Mintox Maximum Strength) cetirizine 10 mg tablet 10 mg PO DAILY PRN allergies 01/10/23 03/13/23 famotidine 20 mg tablet 20 mg PO BEDTIME 01/10/23 03/13/23 gabapentin 600 mg tablet 600 mg PO TID seizure 01/10/23 03/13/23 hydroxyzine pamoate 100 mg capsule 100 mg PO BEDTIME PRN insomnia 01/10/23 03/13/23 lisinopril 10 mg tablet 10 mg PO DAILY 01/10/23 03/13/23 nystatin 100,000 unit/gram topical topical BID 01/10/23 03/13/23 powder clonidine HCl 0.1 mg tablet 0.1 mg PO BEDTIME 04/24/23 esomeprazole magnesium 40 mg 40 mg PO DAILY 04/24/23 capsule,delayed release (Nexium) ondansetron HCl 4 mg tablet 4 mg PO Q8H 04/24/23 Previous Rx's Medication Instructions Recorded metoclopramide HCl 10 mg tablet 10 mg PO Q6H PRN nausea and 02/18/21 (Reglan) vomiting #7 tabs valacyclovir 1 gram tablet 1,000 mg PO Q12H 10 days #20 tabs 02/24/21 dicyclomine 20 mg tablet 20 mg PO QID PRN abdominal pain 07/29/22 #12 tabs ondansetron 4 mg disintegrating 4 mg PO Q6-8H PRN nausea and 07/29/22 tablet vomiting #7 tabs prochlorperazine maleate 5 mg 5 mg PO BID PRN nausea and 08/20/22 tablet (Compazine) vomiting #10 tabs sucralfate 1 gram tablet 1 g PO BID #60 tabs 12/11/22 aluminum hydrox-magnesium carb 254 10 ml PO QID PRN dyspepsia #355 mL 12/18/22 mg-237.5 mg/5 mL oral suspension (Gaviscon Extra Strength) Magic Mouthwash 5 ml PO TID #240 mL 01/20/23 Diphen/Lido/Antacid 1:1:1 240 mL suspension gabapentin 300 mg capsule 300 mg PO TID 30 days #90 caps 02/07/23 gabapentin 600 mg tablet 600 mg PO TID 7 days #21 tabs 02/08/23 Allergies Allergy/AdvReac Type Severity Reaction Status Date / Time amoxicillin Allergy Vomiting Verified 04/24/23 14:09 heparin Allergy Hives Verified 04/24/23 14:09 lamotrigine [From Lamictal] Allergy Hives Verified 04/24/23 14:09 levetiracetam [From Keppra] Allergy Hives Verified 04/24/23 14:09 [facility] Past Medical History Medical History Essential hypertension Sleep disorder Seizure disorder Back pain Neck pain PTSD (post-traumatic stress disorder) Seizure TBI (traumatic brain injury) Bipolar 1 disorder Surgical History Hx of hernia repair Family History Family History Mother Cancer Family/Other No problems noted. Father Heart problem Social History Social History Alcohol intake: former Patient Tobacco Use Status: Former Tobacco user Physical Exam ED Vital Signs: BMI result Body Mass Index 30.1 Course Course Course Narrative: RME- 37 year old male presents for evaluation of headache that started this morning. Also reports vomiting. Vitals were stable for EMS. Most recent CT brain was here on 11/21/22. Plan for labs, further workup as indicated by primary provider Medications Administered Discontinued Medications Generic Name Dose Route Start Last Admin Trade Name Corbinq PRN Reason Stop Dose Admin Diphenhydramine HCl 50 mg 02/24/23 20:33 02/24/23 21:01 Diphenhydramine Hcl 50 Mg/Ml Vial IVPUSH 02/24/23 20:34 50 mg ONCE ONE Administration Sodium Chloride 1,000 mls @ 999 mls/hr 02/24/23 20:45 02/24/23 22:23 Ns IV 02/24/23 21:45 Infused .Q1H1M THALIA Infusion Ketorolac Tromethamine 30 mg 02/24/23 20:33 02/24/23 20:56 Ketorolac Tromethamine 30 Mg/Ml Vial IVPUSH 02/24/23 20:34 30 mg ONCE ONE Administration Prochlorperazine Edisylate 10 mg 02/24/23 20:33 02/24/23 21:03 Prochlorperazine Edisylate 10 Mg/2 Ml Vial IVPUSH 02/24/23 20:34 10 mg ONCE ONE Administration Medical Decision Making Lab Data 02/24/23 19:27 02/24/23 19:27 Labs: Lab Results 02/24/23 Range/Units 19:27 WBC 8.0 (4.8-10.8) X10*3/uL RBC 5.58 (4.60-5.80) X10*6/uL Hgb 16.2 (14.0-18.0) g/dl Hct 48.4 (42.0-52.0) % MCV 86.7 (80.0-98.0) fL MCH 29.0 (27.0-33.0) pg MCHC 33.5 (31.0-36.0) g/dl RDW 12.9 (11.0-16.0) % Plt Count 312 (160-400) X10*3/uL MPV 10.1 (9.4-12.4) fL Immature Gran % (Auto) 0.4 (0.0-0.4) % Neut % (Auto) 67.8 (45-73) % Lymph % (Auto) 21.6 (20-40) % [place] % (Auto) 7.4 (2-11) % Eos % (Auto) 1.8 (0-4) % Baso % (Auto) 1.0 (0-2) % Lymph # (Auto) 1.7 (1.2-4.9) X10*3/uL [place] # (Auto) 0.6 (0.1-1.2) X10*3/uL Eos # (Auto) 0.1 (0.0-0.4) X10*3/uL Baso # (Auto) 0.1 (0.0-0.2) X10*3/uL Abs Immat Gran (auto) 0.03 (0.00-0.03) X10*3/uL Absolute Neuts (auto) 5.4 (2.0-8.3) x10*3/uL Absolute Nucleated RBC 0.000 (0.0-0.012) X10*3/uL Nucleated RBC % (auto) 0.0 (0.0-0.2) /100WBC Sodium 140 (135-145) mmol/L Potassium 3.9 (3.3-5.1) mmol/L Chloride 107 (96-108) mmol/L Carbon Dioxide 26 (22-29) mmol/L Anion Gap 11 L (12-20) BUN 19 H (9-16) mg/dL Creatinine 0.83 (0.5-1.4) mg/dL Estim Creat Clear Calc 113.0 Estimated GFR > 60 Random Glucose 97 (60-115) mg/dL Calcium 10.0 (8.4-10.2) mg/dL Total Bilirubin 0.9 (0.0-1.0) mg/dL AST 41 H (5-37) U/L ALT 60 H (0-40) U/L Alkaline Phosphatase 114 (39-117) U/L Total Protein 7.9 (6.5-8.0) g/dL Albumin 4.6 (3.5-5.0) g/dL Lipase 20 (8-78) U/L Discharge Plan Discharge Clinical Impression: Migraine Patient Disposition: Home, Self-Care Instructions: Migraine Headache (ED) Prescriptions: No Action gabapentin 300 mg capsule 300 mg PO TID 30 Days Qty: 90 3RF Rx Instructions: take w/ 600mg tab = 900mg per dose valacyclovir 1 gram tablet 1,000 mg PO Q12H 10 Days Qty: 20 0RF metoclopramide HCl [Reglan] 10 mg tablet 10 mg PO Q6H PRN (Reason: nausea and vomiting) Qty: 7 0RF prochlorperazine maleate [Compazine] 5 mg tablet 5 mg PO BID PRN (Reason: nausea and vomiting) Qty: 10 0RF dicyclomine 20 mg tablet 20 mg PO QID PRN (Reason: abdominal pain) Qty: 12 0RF ondansetron 4 mg tablet,disintegrating 4 mg PO Q6-8H PRN (Reason: nausea and vomiting) Qty: 7 0RF Gaviscon Extra Strength 254-237.5 mg/5 mL suspension 10 ml PO QID PRN (Reason: dyspepsia) Qty: 355 0RF sucralfate 1 gram tablet 1 g PO BID Qty: 60 0RF Magic Mouthwash Diphen/Lido/Antacid 1:1:1 240 mL suspension 5 ml PO TID Qty: 240 0RF Rx Instructions: Lidocaine Viscous 2 % 80mL; diphenhydramine 12.5 mg/5 mL 80mL; aluminum-mag hydrox-simeth [id number]/5mL 80mL Swish and spit, do not swallow gabapentin 600 mg tablet 600 mg PO TID 7 Days Qty: 21 0RF promethazine 12.5 mg tablet 12.5 mg PO Q6-8H pantoprazole 40 mg tablet,delayed release (DR/EC) 40 mg PO BID albuterol sulfate [ProAir HFA] 90 mcg/actuation HFA aerosol inhaler 0 mcg inhalation aripiprazole 15 mg tablet 15 mg PO DAILY nifedipine 30 mg tablet extended release 24hr 30 mg PO DAILY tamsulosin 0.4 mg capsule 0.4 mg PO DAILY lidocaine 4 % cream topical diazepam 5 mg tablet 5 mg PO BID PRN alum-mag hydroxide-simeth [Mintox Maximum Strength] 400-400-40 mg/5 mL suspension 20 ml PO QID PRN cetirizine 10 mg tablet 10 mg PO DAILY PRN (Reason: allergies) lisinopril 10 mg tablet 10 mg PO DAILY hydroxyzine pamoate 100 mg capsule 100 mg PO BEDTIME PRN (Reason: insomnia) nystatin 100,000 unit/gram powder topical BID gabapentin 600 mg tablet 600 mg PO TID famotidine 20 mg tablet 20 mg PO BEDTIME esomeprazole magnesium [Nexium] 40 mg capsule,delayed release(DR/EC) 40 mg PO DAILY ondansetron HCl 4 mg tablet 4 mg PO Q8H clonidine HCl 0.1 mg tablet 0.1 mg PO BEDTIME Referrals: [facility] [Provider Group] - 02/26/23 Interventions: ED Discharge Assessment Last Done: 02/24/23 23:38 Discharge Date/Time: 02/24/23 23:38
[2023-02-24 18:41] VITALS: BP 136/97; PULSE 82; RESP 18; TEMP 36.3; O2SAT 97; BMI 30.1
[2023-02-24 19:30] LABS: MANUAL DIFF FLAG NO
[2023-02-24 19:47] LABS: Alanine Aminotransferase 60 U/L (0-40); Albumin Level 4.6 g/dL (3.5-5.0); Alkaline Phosphatase 114 U/L (39-117); Anion Gap 11 (12-20); Aspartate Amino Transferase 41 U/L (5-37); Bilirubin Total 0.9 mg/dL (0.0-1.0); Blood Urea Nitrogen 19 mg/dL (9-16); Carbon Dioxide 26 mmol/L (22-29); Chloride 107 mmol/L (96-108); Estimated Glomerular Filt Rate > 60; Glucose Random 97 mg/dL (60-115); Lipase 20 U/L (8-78); Potassium 3.9 mmol/L (3.3-5.1); Sodium 140 mmol/L (135-145); Total Protein 7.9 g/dL (6.5-8.0)
[2023-02-24 19:49] LABS: Basophils Absolute Auto 0.1 X10*3/uL (0.0-0.2); Eosinophils Absolute Auto 0.1 X10*3/uL (0.0-0.4); Eosinophils Percent Auto 1.8 % (0-4); Hematocrit 48.4 % (42.0-52.0); Hemoglobin 16.2 g/dl (14.0-18.0); Imm Gran Abs Auto 0.03 X10*3/uL (0.00-0.03); Imm Gran Pct Auto 0.4 % (0.0-0.4); Lymphocytes Absolute Auto 1.7 X10*3/uL (1.2-4.9); Lymphocytes Percent Auto 21.6 % (20-40); Mean Corpuscular HGB Conc 33.5 g/dl (31.0-36.0); Mean Corpuscular Volume 86.7 fL (80.0-98.0); Mean Platelet Volume 10.1 fL (9.4-12.4); Monocytes Absolute Auto 0.6 X10*3/uL (0.1-1.2); Monocytes Percent Auto 7.4 % (2-11); Neutrophils Absolute Auto 5.4 x10*3/uL (2.0-8.3); Neutrophils Percent Auto 67.8 % (45-73); Platelet Count 312 X10*3/uL (160-400); Red Blood Count 5.58 X10*6/uL (4.60-5.80); Red Cell Distribution Width 12.9 % (11.0-16.0)
--- NOTE | 2023-02-24 20:34 | ED.HA ---
HPI - Headache General Chief Complaint: Headache Stated Complaint: nausea and migraine, per ems Time Seen by Provider: 02/24/23 20:24 History of Present Illness HPI Narrative: Patient is a 36-year-old male presents today with having migraine headache. History of migraine headaches in the past. The headache is frontal similar to previous bouts. Associated with nausea. Patient claims has been ongoing for about 24 hours. No fever no chills. No photophobia. Worse with light. Worse with noise. Very similar to previous bouts of migraine. Related Data Home Medications Medication Instructions Recorded Confirmed albuterol sulfate 90 mcg/actuation 0 mcg inhalation 03/20/22 05/15/22 aerosol inhaler (ProAir HFA) aripiprazole 15 mg tablet 15 mg PO DAILY 03/20/22 05/15/22 diazepam 5 mg tablet 5 mg PO BID PRN 03/20/22 05/15/22 lidocaine 4 % topical cream g topical 03/20/22 05/15/22 nifedipine 30 mg tablet,extended 30 mg PO DAILY 03/20/22 05/15/22 release nifedipine 30 mg tablet,extended 30 mg PO DAILY 03/20/22 release 24 hr omeprazole 20 mg capsule,delayed 20 mg PO BID 03/20/22 05/15/22 release ondansetron 4 mg disintegrating 2 mg PO Q6-8H PRN 03/20/22 05/15/22 tablet pantoprazole 40 mg tablet,delayed 40 mg PO BID 03/20/22 05/15/22 release promethazine 12.5 mg tablet 12.5 mg PO Q6-8H 03/20/22 sucralfate 1 gram tablet 1 g PO QID 03/20/22 tamsulosin 0.4 mg capsule 0.4 mg PO DAILY 03/20/22 aluminum-mag hydroxide-simethicone 20 ml PO QID PRN 05/15/22 05/15/22 400 mg-400 mg-40 mg/5 mL oral susp (Mintox Maximum Strength) cetirizine 10 mg tablet 10 mg PO DAILY PRN allergies 01/10/23 famotidine 20 mg tablet 20 mg PO BEDTIME 01/10/23 gabapentin 600 mg tablet 600 mg PO TID seizure 01/10/23 01/10/23 hydroxyzine pamoate 100 mg capsule 100 mg PO BEDTIME PRN insomnia 01/10/23 lisinopril 10 mg tablet 10 mg PO DAILY 01/10/23 nystatin 100,000 unit/gram topical topical BID 01/10/23 powder Previous Rx's Medication Instructions Recorded metoclopramide HCl 10 mg tablet 10 mg PO Q6H PRN nausea and 02/18/21 (Reglan) vomiting #7 tabs valacyclovir 1 gram tablet 1,000 mg PO Q12H 10 days #20 tabs 02/24/21 dicyclomine 20 mg tablet 20 mg PO QID PRN abdominal pain 07/29/22 #12 tabs ondansetron 4 mg disintegrating 4 mg PO Q6-8H PRN nausea and 07/29/22 tablet vomiting #7 tabs prochlorperazine maleate 5 mg 5 mg PO BID PRN nausea and 08/20/22 tablet (Compazine) vomiting #10 tabs ondansetron 4 mg disintegrating 4 mg PO Q6-8H PRN nausea and 10/16/22 tablet vomiting #7 tabs ondansetron 4 mg disintegrating 4 mg PO Q6H #14 tabs 12/05/22 tablet sucralfate 1 gram tablet 1 g PO BID #60 tabs 12/11/22 aluminum hydrox-magnesium carb 254 10 ml PO QID PRN dyspepsia #355 mL 12/18/22 mg-237.5 mg/5 mL oral suspension (Gaviscon Extra Strength) ondansetron 4 mg disintegrating 4 mg PO BID PRN nausea and 12/18/22 tablet vomiting #10 tabs Magic Mouthwash 5 ml PO TID #240 mL 01/20/23 Diphen/Lido/Antacid 1:1:1 240 mL suspension levofloxacin 750 mg tablet 750 mg PO DAILY 7 days #7 tabs 01/20/23 gabapentin 600 mg tablet 600 mg PO TID 90 days #270 tabs 01/28/23 gabapentin 300 mg capsule 300 mg PO TID 30 days #90 caps 02/07/23 gabapentin 600 mg tablet 600 mg PO TID 7 days #21 tabs 02/08/23 Allergies Allergy/AdvReac Type Severity Reaction Status Date / Time amoxicillin Allergy Vomiting Verified 01/27/23 14:59 heparin Allergy Hives Verified 01/27/23 14:59 lamotrigine [From Lamictal] Allergy Hives Verified 01/27/23 14:59 levetiracetam [From Keppra] Allergy Hives Verified 01/27/23 14:59 Review of Systems Review of Systems: No fever no chills Yes all other systems are reviewed and are negative [facility] Past Medical History Attestation statement: The following information was validated with the patient. Medical History Back pain Bipolar 1 disorder Neck pain PTSD (post-traumatic stress disorder) Seizure Seizure disorder Sleep disorder TBI (traumatic brain injury) Surgical History Hx of hernia repair Family History Family History Mother Cancer Family/Other No problems noted. Social History Social History Alcohol intake: former Patient Tobacco Use Status: Former Tobacco user Advance Directives: No Advance Directives Information Provided: No Physical Exam Vital Signs: Vital Signs: Last Vital Signs Temp 97.3 F 02/24/23 18:41 Pulse 82 02/24/23 18:41 Resp 18 02/24/23 18:41 BP 136/97 H 02/24/23 18:41 Pulse Ox 97 02/24/23 18:41 O2 Del Method Room Air 02/24/23 18:41 BMI result Body Mass Index 30.1 Appearance: Alert. Oriented X3. No acute distress. Eyes: Pupils equal, round and reactive to light. ENT: Pharynx normal. Neck: Normal inspection. Neck supple. No lymph nodes noted. No crepitus CVS: Normal heart rate and rhythm. Pulses normal. Normal S1 and S2 Respiratory: No respiratory distress. Breath sounds normal. No Wheezing. No rales Abdomen: Soft and nontender. No rigidity. No distention. good BS x4 Skin: Skin warm and dry. Normal skin color. Normal skin turgor. Extremities: No lower extremity edema. Neurovascular intact to all extremities. No Lacerations. No Rash Neuro: Oriented X 3. No motor deficit. No sensory deficit. Moving all extermities. No slurred speech Medications Administered Discontinued Medications Generic Name Dose Route Start Last Admin Trade Name Freq PRN Reason Stop Dose Admin Diphenhydramine HCl 50 mg 02/24/23 20:33 02/24/23 21:01 Diphenhydramine Hcl 50 Mg/Ml Vial IVPUSH 02/24/23 20:34 50 mg ONCE ONE Administration Sodium Chloride 1,000 mls @ 999 mls/hr 02/24/23 20:45 02/24/23 20:45 Ns IV 02/24/23 21:45 999 mls/hr .Q1H1M THALIA Administration Ketorolac Tromethamine 30 mg 02/24/23 20:33 02/24/23 20:56 Ketorolac Tromethamine 30 Mg/Ml Vial IVPUSH 02/24/23 20:34 30 mg ONCE ONE Administration Prochlorperazine Edisylate 10 mg 02/24/23 20:33 02/24/23 21:03 Prochlorperazine Edisylate 10 Mg/2 Ml Vial IVPUSH 02/24/23 20:34 10 mg ONCE ONE Administration Medical Decision Making Medical Decision Making MDM Narrative: Patient well-appearing neurologically intact. Positive headache in the frontal area. History of migraine in the past. Will go ahead and give Compazine, Benadryl, Toradol. Will monitor carefully. History and exam not consistent with meningitis. Not consistent with intracranial bleed. No trauma. Currently in stable condition Differential Diagnosis Differential Diagnoses: The differential diagnosis associated with the presentation includes Intracranial bleed, meningitis, migraine Lab Data 02/24/23 19:27 02/24/23 19:27 Labs: Lab Results 02/24/23 02/24/23 Range/Units 19:27 19:27 WBC 8.0 (4.8-10.8) X10*3/uL RBC 5.58 (4.60-5.80) X10*6/uL Hgb 16.2 (14.0-18.0) g/dl Hct 48.4 (42.0-52.0) % MCV 86.7 (80.0-98.0) fL MCH 29.0 (27.0-33.0) pg MCHC 33.5 (31.0-36.0) g/dl RDW 12.9 (11.0-16.0) % Plt Count 312 (160-400) X10*3/uL MPV 10.1 (9.4-12.4) fL Immature Gran % (Auto) 0.4 (0.0-0.4) % Neut % (Auto) 67.8 (45-73) % Lymph % (Auto) 21.6 (20-40) % [place] % (Auto) 7.4 (2-11) % Eos % (Auto) 1.8 (0-4) % Baso % (Auto) 1.0 (0-2) % Lymph # (Auto) 1.7 (1.2-4.9) X10*3/uL [place] # (Auto) 0.6 (0.1-1.2) X10*3/uL Eos # (Auto) 0.1 (0.0-0.4) X10*3/uL Baso # (Auto) 0.1 (0.0-0.2) X10*3/uL Abs Immat Gran (auto) 0.03 (0.00-0.03) X10*3/uL Absolute Neuts (auto) 5.4 (2.0-8.3) x10*3/uL Absolute Nucleated RBC 0.000 (0.0-0.012) X10*3/uL Nucleated RBC % (auto) 0.0 (0.0-0.2) /100WBC Sodium 140 (135-145) mmol/L Potassium 3.9 (3.3-5.1) mmol/L Chloride 107 (96-108) mmol/L Carbon Dioxide 26 (22-29) mmol/L Anion Gap 11 L (12-20) BUN 19 H (9-16) mg/dL Creatinine 0.83 (0.5-1.4) mg/dL Estim Creat Clear Calc 113.0 Estimated GFR > 60 Random Glucose 97 (60-115) mg/dL Calcium 10.0 (8.4-10.2) mg/dL Total Bilirubin 0.9 (0.0-1.0) mg/dL AST 41 H (5-37) U/L ALT 60 H (0-40) U/L Alkaline Phosphatase 114 (39-117) U/L Total Protein 7.9 (6.5-8.0) g/dL Albumin 4.6 (3.5-5.0) g/dL Lipase 20 (8-78) U/L Discharge Plan Discharge Clinical Impression: Migraine Patient Disposition: Home, Self-Care Instructions: Migraine Headache (ED) Prescriptions: No Action gabapentin 300 mg capsule 300 mg PO TID 30 Days Qty: 90 3RF Rx Instructions: take w/ 600mg tab = 900mg per dose valacyclovir 1 gram tablet 1,000 mg PO Q12H 10 Days Qty: 20 0RF metoclopramide HCl [Reglan] 10 mg tablet 10 mg PO Q6H PRN (Reason: nausea and vomiting) Qty: 7 0RF prochlorperazine maleate [Compazine] 5 mg tablet 5 mg PO BID PRN (Reason: nausea and vomiting) Qty: 10 0RF dicyclomine 20 mg tablet 20 mg PO QID PRN (Reason: abdominal pain) Qty: 12 0RF ondansetron 4 mg tablet,disintegrating 4 mg PO Q6-8H PRN (Reason: nausea and vomiting) Qty: 7 0RF ondansetron 4 mg tablet,disintegrating 4 mg PO Q6-8H PRN (Reason: nausea and vomiting) Qty: 7 0RF Gaviscon Extra Strength 254-237.5 mg/5 mL suspension 10 ml PO QID PRN (Reason: dyspepsia) Qty: 355 0RF ondansetron 4 mg tablet,disintegrating 4 mg PO Q6H Qty: 14 0RF sucralfate 1 gram tablet 1 g PO BID Qty: 60 0RF ondansetron 4 mg tablet,disintegrating 4 mg PO BID PRN (Reason: nausea and vomiting) Qty: 10 0RF Magic Mouthwash Diphen/Lido/Antacid 1:1:1 240 mL suspension 5 ml PO TID Qty: 240 0RF Rx Instructions: Lidocaine Viscous 2 % 80mL; diphenhydramine 12.5 mg/5 mL 80mL; aluminum-mag hydrox-simeth [id number]-17jm/5mL 80mL Swish and spit, do not swallow levofloxacin 750 mg tablet 750 mg PO DAILY 7 Days Qty: 7 0RF gabapentin 600 mg tablet 600 mg PO TID 7 Days Qty: 21 0RF ondansetron 4 mg tablet,disintegrating 2 mg PO Q6-8H PRN promethazine 12.5 mg tablet 12.5 mg PO Q6-8H pantoprazole 40 mg tablet,delayed release (DR/EC) 40 mg PO BID sucralfate 1 gram tablet 1 g PO QID albuterol sulfate [ProAir HFA] 90 mcg/actuation HFA aerosol inhaler 0 mcg inhalation nifedipine 30 mg tablet extended release 30 mg PO DAILY aripiprazole 15 mg tablet 15 mg PO DAILY nifedipine 30 mg tablet extended release 24hr 30 mg PO DAILY omeprazole 20 mg capsule,delayed release(DR/EC) 20 mg PO BID tamsulosin 0.4 mg capsule 0.4 mg PO DAILY lidocaine 4 % cream topical diazepam 5 mg tablet 5 mg PO BID PRN alum-mag hydroxide-simeth [Mintox Maximum Strength] 400-400-40 mg/5 mL suspension 20 ml PO QID PRN cetirizine 10 mg tablet 10 mg PO DAILY PRN (Reason: allergies) lisinopril 10 mg tablet 10 mg PO DAILY hydroxyzine pamoate 100 mg capsule 100 mg PO BEDTIME PRN (Reason: insomnia) nystatin 100,000 unit/gram powder topical BID gabapentin 600 mg tablet 600 mg PO TID famotidine 20 mg tablet 20 mg PO BEDTIME gabapentin 600 mg tablet 600 mg PO TID 90 Days Qty: 270 1RF Referrals: [facility] [Provider Group] - 02/26/23
[2023-02-24] MEDS: 0.9 % Sodium Chloride 1,000 ML 999 ML IV (20:45)
[2023-02-24] MEDS: Ketorolac Tromethamine 30 MG/ML VIAL IVPUSH (20:56)
[2023-02-24] MEDS: diphenhydrAMINE HCL 50 MG/ML VIAL IVPUSH (21:01)
[2023-02-24] MEDS: Prochlorperazine Edisylate 10 MG/2 ML VIAL IVPUSH (21:03)
[2023-02-24 22:00] VITALS: BP 118/79; PULSE 99; RESP 16; TEMP 36.4; O2SAT 98
--- NOTE | 2023-02-24 23:36 | PC.NURSE ---
This Rn reviewed discharge instructions only with pt, pt verbalized understanding, no sign of distress. Pt able to ambulate with a steady gait.
== END 2023-02-24 23:38 | disposition home or self-care (01) ==
PROVIDERS: Physician Assistant; Emergency Provider Emergency Medicine Emergency Medical Services
DX: G43.909 Migraine, unspecified, not intractable, without status migrainosus (principal)
CPT/HCPCS: 36415; 80053; 83690; 85025; 96361; 96374; 96375; 99284; J1200; J1885

== ENCOUNTER 2023-03-13 13:49 | Outpatient (AMB) | payer OTHER, SELFPAY ==
[2023-03-13 14:09] VITALS: BP 130/84; PULSE 77; BMI 29.4
--- NOTE | 2023-03-13 14:09 | MHC.OFFVIS ---
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 SCANNED IN Intake Note: NPV Corrugated Sheet Material Sheeter Required: No Accompanied by: Self / Same As Patient Allergies amoxicillin Allergy (Verified 03/13/23 14:11) Vomiting heparin Allergy (Verified 03/13/23 14:11) Hives lamotrigine [From Lamictal] Allergy (Verified 03/13/23 14:11) Hives levetiracetam [From Keppra] Allergy (Verified 03/13/23 14:11) Hives Medication List - Last Reconciled 03/13/23 by Frank Alexis MD albuterol sulfate 90 mcg/actuation (ProAir HFA) 0 mcg inhalation alum-mag hydroxide-simeth 400-400-40 mg/5 mL (Mintox Maximum Strength) 20 mL PO QID PRN aluminum hydrox-magnesium carb 254-237.5 mg/5 mL (Gaviscon Extra Strength) 10 mL PO QID PRN aripiprazole 15 mg PO DAILY cetirizine 10 mg PO DAILY PRN diazepam 5 mg PO BID PRN dicyclomine 20 mg PO QID PRN famotidine 20 mg PO BEDTIME gabapentin 600 mg PO TID 7 days gabapentin 600 mg PO TID gabapentin 300 mg PO TID 30 days hydroxyzine pamoate 100 mg PO BEDTIME PRN lidocaine 4% grams topical lisinopril 10 mg PO DAILY Magic Mouthwash Diphen/Lido/Antacid 1:1:1 5 mL PO TID metoclopramide HCl (Reglan) 10 mg PO Q6H PRN nifedipine ER 30 mg PO DAILY nystatin topical BID omeprazole 20 mg PO BID ondansetron 4 mg PO Q6-8H PRN pantoprazole 40 mg PO BID prochlorperazine maleate (Compazine) 5 mg PO BID PRN promethazine 12.5 mg PO Q6-8H sucralfate 1 g PO BID tamsulosin 0.4 mg PO DAILY valacyclovir 1,000 mg PO Q12H 10 days HPI HPI Comments History of Present Illness Details Van is here for consultation regarding various cardiac concerns. It appears that he routine upset your can the past and at that time, had seen cardiology locally. Review those records. Patient has various comorbidities including hypertension, dyslipidemia, history of smoking. He also has a history of TBI in 2008, some muscular disorder and seizure disorder. Some cognitive impairment. It seems that he has been worked up with an echocardiogram and stress test due to atypical chest pains and other concerns like palpitations. However, testing was essentially unremarkable. There is also question of premature CAD it is father who apparently had a heart attack in his 30s. Any case, patient still has some random chest pains. Nothing clearly exertion. Can happen any time. With and without exertion. Prior documentation, there have been episodes of loss of consciousness but nothing recent in that regard. Overall, no clear cardiac symptoms. [facility] Medical History (Updated 03/13/23 @ 15:25 by Frank Alexis MD) Back pain Bipolar 1 disorder Essential hypertension Neck pain PTSD (post-traumatic stress disorder) Seizure Seizure disorder Sleep disorder TBI (traumatic brain injury) Surgical History Hx of hernia repair Family History Mother Cancer Family/Other No problems noted. Father Heart problem Social History Alcohol intake: former Patient Tobacco Use Status: Former Tobacco user Review of Systems Const Denies weakness Eyes Denies loss of vision ENT Denies dizziness Card Denies chest pain, Denies chest pain with activity, Denies syncope, Denies rapid heart rate, Denies pedal edema, Denies edema, Denies leg edema, Denies lightheadedness, Denies palpitations, Denies dyspnea, Denies dyspnea on exertion and Denies orthopnea Resp Denies cough, Denies dyspnea, Denies dyspnea on exertion and Denies wheezing GI Denies hematochezia and Denies change in stool character Denies hematuria, Denies dysuria and Denies urinary frequency Musc Denies abnormal gait, Denies muscle cramps, Denies muscle weakness, Denies numbness, Denies radiating pain into limb and Denies tingling Skin/Breast Denies nail changes and Denies rash Neuro Denies Abnormal speech present, Denies abnormal gait, Denies dizziness, Denies syncope, Denies loss of vision, Denies memory loss, Denies numbness, Denies tingling and Denies weakness Psych Denies depression and Denies memory loss Endo Denies palpitations Aller/Immun Denies wheezing Physical Exam Vital Signs: Last Vital Signs Pulse 77 03/13/23 14:09 BP 130/84 03/13/23 14:09 BMI result Body Mass Index 29.4 Const General: comfortable and no acute distress Orientation/consciousness: patient oriented x3 HEENT Other: Unremarkable Head: Yes normal to inspection Neck Neck: Yes normal visual inspection Chest Chest palpation & inspection: normal inspection of the chest Resp Auscultation: clear to auscultation bilaterally Cardio Palpation: normal PMI Heart sounds: S1 normal heart sound present, S2 normal heart sound present, no gallops, no murmurs and no rubs GI Palpation (GI): Soft to palpation Back/Spine/Pelvis Other: unremarkable Skin General skin exam: no rashes or lesions noted Neuro General: patient oriented x3 Speech: No Abnormal speech present Extrem General: Yes normal to inspection Psych Mental Status: mental status grossly normal Assessment & Plan Assessment & Plan (1) Precordial chest pain: Code(s): R07.2 - Precordial pain (2) Essential hypertension: Code(s): I10 - Essential (primary) hypertension Plan In the recent EKG, underlying rhythm is sinus at 72/Min; minimal criteria for LVH; no significant ST-T changes and otherwise unremarkable. Normal MS and corrected QT. Echocardiogram from [place], 2019 reported to have normal LV systolic function and trace valvular regurgitation. No evidence of pulmonary hypertension. Pharmacological perfusion imaging from 2019 showed normal myocardial perfusion normal regional wall motion. His symptoms seem very atypical and from the testing few years ago, no clear structural heart disease or obstructive coronary disease. Because of concern for premature CAD in his father, personal history of hypertension we will clarify further with a coronary CTA. Patient agreeable with that. If any significant findings, we can reassess. Otherwise, no change in blood pressure medications. Orders: Orders CT Cardiac Coronary Angio Today I25.10 - Atherosclerotic heart disease of [place] coronary artery without angina pectoris, R07.2 - Precordial pain Coding Level of Care Code New Pt Level 4 (16825) Diagnoses Precordial chest pain R07.2 Essential hypertension I10
== END 2023-03-13 14:36 | disposition home or self-care (01) ==
PROVIDERS: PCP Internal Medicine; Referring Provider Internal Medicine; Visit Provider Internal Medicine
DX: R07.2 Precordial pain (principal); I10 Essential (primary) hypertension
CPT/HCPCS: 99214

== ENCOUNTER → 2023-03-13 13:49 | Outpatient (BNVA) | payer OTHER, SELFPAY | PROVIDERS: PCP Internal Medicine; Referring Provider Internal Medicine; Visit Provider Internal Medicine | DX: R07.2 Precordial pain (principal); I10 Essential (primary) hypertension | CPT/HCPCS: 99212 ==

== ENCOUNTER 2023-04-24 13:35 | Outpatient (AMB) | payer OTHER, SELFPAY ==
--- NOTE | 2023-04-24 14:03 | A.OFFVIS_ITS ---
Intake Vital Signs 04/24/23 14:05 Weight 168 lb BP 140/78 H Blood Pressure Location Rt brachial Position Sitting Pulse 70 Pulse Source Pulse Oximeter Pulse Oximetry (%) 97 Oxygen Delivery Method Room Air Intake Visit Reasons: Follow up for Seizure Intake Note: Pt presents today in seizure fup Allergies amoxicillin Allergy (Verified 04/24/23 14:09) Vomiting heparin Allergy (Verified 04/24/23 14:09) Hives lamotrigine [From Lamictal] Allergy (Verified 04/24/23 14:09) Hives levetiracetam [From Keppra] Allergy (Verified 04/24/23 14:09) Hives HPI HPI Comments History of Present Illness Details 37 y/o male patient presents for follow up of seizure. 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 He has not had breakthrough seizures since he restart gabapentin. He is on gabapentin 900 mg TID. Pt has hx of ANABEL and is on CPAP. He is followed by Sleep Medicine Services. Pt noticed that he has seizure at night when he does not use CPAP. Keppra and lamictal, dilanting depako tried had hives and not helpful for seizure. [facility] Medical History Essential hypertension Sleep disorder Seizure disorder Back pain Neck pain PTSD (post-traumatic stress disorder) Seizure TBI (traumatic brain injury) Bipolar 1 disorder Surgical History Hx of hernia repair Family History Mother Cancer Family/Other No problems noted. 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 General: cooperative, comfortable, no acute distress and well developed Nutritional Appearance: average body habitus Orientation/consciousness: patient oriented x3 HEENT Head: Yes normal to inspection and Yes normocephalic Throat: Yes other (mallampatti grade 4) Neck Neck: Yes normal visual inspection Neuro General: patient oriented x3, tone normal and moves all extremities Cranial nerves: Yes CN's II-XII intact bilaterally, Yes Bilaterally intact EOM present, Yes Nystagmus not present, Yes Normal facial strength present and Yes Midline tongue present Speech: Abnormal speech present Gait exam (Neuro): Normal gait present Motor exam (neuro): 5/5 motor strength present throughout and Normal motor muscle tone present throughout Deep tendon reflexes (DTR's): Right triceps reflex intensity grade: 2+, Left triceps reflex intensity grade: 2+, Rt Biceps (C5, C6): 2+, Left biceps reflex intensity grade: 2+, Right brachioradialis reflex intensity grade: 2+, Left brachioradialis reflex intensity grade: 2+, Right patellar reflex intensity grade: 3+ and Left patellar reflex intensity grade: 3+ Coordination: [id number] test normal Psych Appearance: other (partially undressed) Speech and movement: Pressured speech present and Echolalia present (Psych) Affect: Anxious affect present Assessment & Plan Assessment & Plan (1) Sleep disorder: Code(s): G47.9 - Sleep disorder, unspecified Plan Advised patient to continue to take gabapentin 900 mg tid as patient experiences good clinical effect. No driving advised. Continue to follow up with Sleep Medicine Services for sleep apnea. Stressed CPAP and medication compliance. Coding Level of Care Code Est Pt Level 3 (24944) Diagnoses Sleep disorder G47.9
[2023-04-24 14:05] VITALS: BP 140/78; PULSE 70; O2SAT 97
== END 2023-04-24 14:27 | disposition home or self-care (01) ==
PROVIDERS: PCP Internal Medicine; Visit Provider Nurse Practitioner Family
DX: G47.9 Sleep disorder, unspecified (principal)
CPT/HCPCS: 99213

== ENCOUNTER → 2023-04-24 13:35 | Outpatient (BNVA) | payer OTHER, SELFPAY | PROVIDERS: PCP Internal Medicine; Visit Provider Nurse Practitioner Family | DX: G47.9 Sleep disorder, unspecified (principal) | CPT/HCPCS: 99212 ==

== ENCOUNTER 2023-05-20 13:43 | Outpatient (AMB) | payer OTHER, SELFPAY ==
[2023-05-20 14:10] VITALS: BP 120/74; BMI 29.9
--- NOTE | 2023-05-20 14:10 | A.OFFVIS_ITS ---
Intake Vital Signs 05/20/23 14:10 Height 5 ft 3 in Weight 168 lb 13.985 oz BMI 29.9 BP 120/74 Intake Visit Reasons: 2 mth f/up cta Intake Note: 2 mth f/u CTA Allergies amoxicillin Allergy (Verified 05/20/23 14:13) Vomiting heparin Allergy (Verified 05/20/23 14:13) Hives lamotrigine [From Lamictal] Allergy (Verified 05/20/23 14:13) Hives levetiracetam [From Keppra] Allergy (Verified 05/20/23 14:13) Hives Medication List - Last Reconciled 05/20/23 by SIMONE Mccormick albuterol sulfate 90 mcg/actuation (ProAir HFA) 0 mcg inhalation alum-mag hydroxide-simeth 400-400-40 mg/5 mL (Mintox Maximum Strength) 20 mL PO QID PRN aluminum hydrox-magnesium carb 254-237.5 mg/5 mL (Gaviscon Extra Strength) 10 mL PO QID PRN aripiprazole 15 mg PO DAILY cetirizine 10 mg PO DAILY PRN clonidine HCl 0.1 mg PO BEDTIME diazepam 5 mg PO BID PRN dicyclomine 20 mg PO QID PRN esomeprazole magnesium (Nexium) 40 mg PO DAILY famotidine 20 mg PO BEDTIME gabapentin 600 mg PO TID 7 days gabapentin 300 mg PO TID 30 days hydroxyzine pamoate 100 mg PO BEDTIME PRN lidocaine 4% grams topical lisinopril 10 mg PO DAILY Magic Mouthwash Diphen/Lido/Antacid 1:1:1 5 mL PO TID metoclopramide HCl (Reglan) 10 mg PO Q6H PRN nifedipine ER 30 mg PO DAILY nystatin topical BID ondansetron 4 mg PO Q6-8H PRN ondansetron HCl 4 mg PO Q8H pantoprazole 40 mg PO BID prochlorperazine maleate (Compazine) 5 mg PO BID PRN promethazine 12.5 mg PO Q6-8H sucralfate 1 g PO BID tamsulosin 0.4 mg PO DAILY valacyclovir 1,000 mg PO Q12H 10 days HPI 2 mth f/up cta HPI Details Van is a 37-year-old male with past medical history of hypertension, hyperlipidemia, smoking who was recently seen for atypical sounding chest discomfort. With his cardiac risk factors a CTA of the coronary arteries was done and he now presents for follow-up. Today he continues to describe some random type chest discomfort. He does not get chest discomfort brought on by physical activity. He reports heart palpitations that occur when he lays down. He has to sleep upright a little bit or his heart will go fast. He shows me on his blood pressure monitor a heart rate of 154 that was recorded. No significant shortness of breath, presyncope, syncope, falls, PND, orthopnea or edema. He is concerned about his heart because his father had premature CAD with [place] in his 30s. [facility] Medical History Essential hypertension Sleep disorder Seizure disorder Back pain Neck pain PTSD (post-traumatic stress disorder) Seizure TBI (traumatic brain injury) Bipolar 1 disorder Surgical History Hx of hernia repair Family History Mother Cancer Family/Other No problems noted. Father Heart problem Social History Alcohol intake: former Patient Tobacco Use Status: Former Tobacco user Review of Systems Const All systems reviewed & are unremarkable except as noted in HPI and below ENT Denies dizziness Card Reports chest pain, Denies chest pain at rest, Denies chest pain with activity, Denies rapid heart rate, Denies pedal edema, Denies edema, Denies leg edema, Denies lightheadedness, Reports palpitations, Denies dyspnea, Denies dyspnea on exertion and Denies orthopnea Resp Denies cough, Denies dyspnea and Denies dyspnea on exertion GI Denies hematochezia and Denies change in stool character Musc Denies abnormal gait, Denies limited range of motion, Denies muscle cramps, Denies muscle weakness, Denies numbness, Denies radiating pain into limb, Denies stiffness and Denies tingling Neuro Denies abnormal gait, Denies dizziness, Denies numbness and Denies tingling Endo Reports palpitations Physical Exam Vital Signs: Last Vital Signs BP 120/74 05/20/23 14:10 BMI result Body Mass Index 29.9 Const General: cooperative, healthy appearing, comfortable and no acute distress Orientation/consciousness: patient oriented x3 Neck Neck: Yes normal visual inspection Resp Effort & Inspection: normal respiratory effort Auscultation: clear to auscultation bilaterally, no crackles, no rales, no rhonchi and no wheezes Cardio Jugular venous distension: no JVD Rate: regular rate Rhythm: regular rhythm Heart sounds: S1 normal heart sound present, S2 normal heart sound present, no murmurs and no rubs Skin General skin exam: no rashes or lesions noted Neuro General: patient oriented x3 Extrem General: Yes normal to inspection, No no pedal edema and No calf tenderness Psych Appearance: grossly normal Mental Status: mental status grossly normal Speech and movement: Normal speech and movement present Assessment & Plan Assessment & Plan (1) Precordial chest pain: Code(s): R07.2 - Precordial pain Plan: Reports of atypical sounding chest discomfort. Recent EKG showing sinus rhythm, heart rate 72, minimal criteria for LVH, no significant ST or T-wave abnormality. An echocardiogram done in [place] 2019 showing normal EF, trace valvular regurgitation, no pulmonary hypertension. Pharmacological perfusion imaging from 2019 showed normal myocardial perfusion. Cardiac risk factors of hypertension, hyperlipidemia and premature CAD in his father. We had him undergo a coronary CTA 05/09/2023 which showed normal coronary vasculature. Test results reviewed with patient in detail. Informed him that his chest discomfort is not heart related. Based on his description it seems more chest wall related. Continue with risk factor modification including good blood pressure and cholesterol control. Cardiology follow-up can be as needed. (2) Heart palpitations: Code(s): R00.2 - Palpitations Plan: Report of heart palpitations like his heart is beating fast. Occurs mostly when he is laying down. He shows me a heart rate of 154 on his blood pressure monitor. Pulse is regular on examination today, normal rate. Will check a Holter monitor to evaluate for arrhythmia, SVT. Plan to call him with results. Cardiology follow-up visit if warranted based on findings (3) Essential hypertension: Code(s): I10 - Essential (primary) hypertension Plan: Well controlled at this time. No med changes made Orders: Orders ECG 3 day holter monitor Today R00.2 - Palpitations Coding Level of Care Code Est Pt Level 3 (78515) Diagnoses Precordial chest pain R07.2 Heart palpitations R00.2 Essential hypertension I10 Time Spent (min) 22
== END 2023-05-20 15:13 | disposition home or self-care (01) ==
PROVIDERS: PCP Internal Medicine; Visit Provider Nurse Practitioner Family
DX: R07.2 Precordial pain (principal); R00.2 Palpitations; I10 Essential (primary) hypertension
CPT/HCPCS: 99213

== ENCOUNTER → 2023-05-20 13:43 | Outpatient (BNVA) | payer OTHER, SELFPAY | PROVIDERS: PCP Internal Medicine; Visit Provider Nurse Practitioner Family | DX: R07.2 Precordial pain (principal); R00.2 Palpitations; I10 Essential (primary) hypertension; E78.5 Hyperlipidemia, unspecified | CPT/HCPCS: 99212 ==

== ENCOUNTER → 2023-05-26 09:07 | Outpatient (REF) | payer OTHER, SELFPAY ==
--- NOTE | 2023-05-26 09:17 | HM_ITS ---
Conclusion: 1. Patient was monitored for total period of 3 days 2. Baseline was normal sinus rhythm with average heart of 83 beats per minute 3. No significant pauses noted 4. Rare ectopy noted 5. 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
== END ==
LOC: HO.CARD 09:07
PROVIDERS: Visit Provider Nurse Practitioner Family
DX: R00.2 Palpitations (principal)
CPT/HCPCS: 93242

== ENCOUNTER → 2023-05-26 09:17 | Outpatient (BNV) | payer OTHER, SELFPAY | PROVIDERS: Visit Provider Internal Medicine Cardiovascular Disease | DX: R00.2 Palpitations (principal) | CPT/HCPCS: 93244 ==

== ENCOUNTER 2023-05-28 18:35 | Emergency (ER) | payer OTHER, SELFPAY ==
[2023-05-28 18:51] VITALS: BP 133/103; PULSE 67; RESP 18; TEMP 36.7; O2SAT 97; BMI 29.8
--- NOTE | 2023-05-28 18:58 | ED_ITS ---
HPI - GI Bleed General Chief complaint: GI Bleed Stated complaint: GI Bleed Time Seen by Provider: 05/28/23 18:57 Source: patient Mode of arrival: EMS Limitations: no limitations History of Present Illness HPI Narrative: Patient with anxiety and seizure disorder brought by EMS for patient having watery stool and vomiting since early today vomiting is yellowish color with small amount of black specks stool is watery yellowish had mild epigastric pain not on any blood thinner does have history of gastritis Related Data Home Medications Medication Instructions Recorded Confirmed albuterol sulfate 90 mcg/actuation 0 mcg inhalation 03/20/22 05/20/23 aerosol inhaler (ProAir HFA) aripiprazole 15 mg tablet 15 mg PO DAILY 03/20/22 05/20/23 diazepam 5 mg tablet 5 mg PO BID PRN 03/20/22 05/20/23 lidocaine 4 % topical cream g topical 03/20/22 05/20/23 nifedipine 30 mg tablet,extended 30 mg PO DAILY 03/20/22 05/20/23 release 24 hr pantoprazole 40 mg tablet,delayed 40 mg PO BID 03/20/22 05/20/23 release promethazine 12.5 mg tablet 12.5 mg PO Q6-8H 03/20/22 05/20/23 tamsulosin 0.4 mg capsule 0.4 mg PO DAILY 03/20/22 05/20/23 aluminum-mag hydroxide-simethicone 20 ml PO QID PRN 05/15/22 05/20/23 400 mg-400 mg-40 mg/5 mL oral susp (Mintox Maximum Strength) cetirizine 10 mg tablet 10 mg PO DAILY PRN allergies 01/10/23 05/20/23 famotidine 20 mg tablet 20 mg PO BEDTIME 01/10/23 05/20/23 hydroxyzine pamoate 100 mg capsule 100 mg PO BEDTIME PRN insomnia 01/10/23 05/20/23 lisinopril 10 mg tablet 10 mg PO DAILY 01/10/23 05/20/23 nystatin 100,000 unit/gram topical topical BID 01/10/23 05/20/23 powder clonidine HCl 0.1 mg tablet 0.1 mg PO BEDTIME 04/24/23 05/20/23 esomeprazole magnesium 40 mg 40 mg PO DAILY 04/24/23 05/20/23 capsule,delayed release (Nexium) ondansetron HCl 4 mg tablet 4 mg PO Q8H 04/24/23 05/20/23 Previous Rx's Medication Instructions Recorded metoclopramide HCl 10 mg tablet 10 mg PO Q6H PRN nausea and 02/18/21 (Reglan) vomiting #7 tabs valacyclovir 1 gram tablet 1,000 mg PO Q12H 10 days #20 tabs 02/24/21 dicyclomine 20 mg tablet 20 mg PO QID PRN abdominal pain 07/29/22 #12 tabs ondansetron 4 mg disintegrating 4 mg PO Q6-8H PRN nausea and 07/29/22 tablet vomiting #7 tabs prochlorperazine maleate 5 mg 5 mg PO BID PRN nausea and 08/20/22 tablet (Compazine) vomiting #10 tabs sucralfate 1 gram tablet 1 g PO BID #60 tabs 12/11/22 aluminum hydrox-magnesium carb 254 10 ml PO QID PRN dyspepsia #355 mL 12/18/22 mg-237.5 mg/5 mL oral suspension (Gaviscon Extra Strength) Magic Mouthwash 5 ml PO TID #240 mL 01/20/23 Diphen/Lido/Antacid 1:1:1 240 mL suspension gabapentin 300 mg capsule 300 mg PO TID 30 days #90 caps 02/07/23 gabapentin 600 mg tablet 600 mg PO TID 7 days #21 tabs 02/08/23 ondansetron 4 mg disintegrating 4 mg PO Q6-8H PRN nausea and 05/28/23 tablet vomiting #7 tabs Allergies Allergy/AdvReac Type Severity Reaction Status Date / Time amoxicillin Allergy Vomiting Verified 05/20/23 14:13 heparin Allergy Hives Verified 05/20/23 14:13 lamotrigine [From Lamictal] Allergy Hives Verified 05/20/23 14:13 levetiracetam [From Keppra] Allergy Hives Verified 05/20/23 14:13 Review of Systems 2 Review of Systems: Yes all other systems are reviewed and are negative PMFSH Past Medical History Medical History Essential hypertension Sleep disorder Seizure disorder Back pain Neck pain PTSD (post-traumatic stress disorder) Seizure TBI (traumatic brain injury) Bipolar 1 disorder Surgical History Hx of hernia repair Family History Family History Mother Cancer Family/Other No problems noted. Father Heart problem Social History Social History Alcohol intake: former Patient Tobacco Use Status: Former Tobacco user Smoked in Last 30 Days: No Advance Directives: No Advance Directives Information Provided: No Physical Exam 2 Vital Signs: Vital Signs: Last Vital Signs Temp 98.3 F 05/28/23 20:49 Pulse 87 05/28/23 20:49 Resp 16 05/28/23 20:49 BP 129/92 H 05/28/23 20:49 Pulse Ox 97 05/28/23 20:49 O2 Del Method Room Air 05/28/23 20:49 BMI result Body Mass Index 29.8 Appearance: Alert. Oriented X3. No acute distress. Eyes: No pallor or icterus ENT: Pharynx normal. Oral Mucosa moist Neck: Normal inspection. Neck supple. CVS: Normal heart rate and rhythm. Pulses normal. Respiratory: No respiratory distress. Equal air entry bilateral, no wheezing/rales/rhonchi Abdomen: Soft mild epigastric tenderness Bowel sounds are present, no mass palpable, no CVA tenderness Skin: Skin warm and dry. Normal skin color. Normal skin turgor. Extremities: No lower extremity edema. No calf tenderness Neuro: Oriented X 3. No motor deficit. Medications Administered Discontinued Medications Generic Name Dose Route Start Last Admin Trade Name Corbinq PRN Reason Stop Dose Admin Al Hydroxide/Mg Hydroxide 30 ml 05/28/23 19:40 05/28/23 20:04 Magnesium Hydrox/Alum Hydrox 30 Ml Oral.Susp PO 05/28/23 19:41 30 ml ONCE ONE Administration Ondansetron HCl 4 mg 05/28/23 19:40 05/28/23 20:04 Ondansetron Odt 4 Mg Tab.Rapdis TRANSLINGU 05/28/23 19:41 4 mg ONCE ONE Administration Medical Decision Making Medical Decision Making MDM Narrative: Patient with chronic gastritis no active vomiting in the ER H&H stable brown stools discharge patient home advised to continue his Prilosec and Zofran for nausea vomiting Differential Diagnosis Differential Diagnoses: The differential diagnosis associated with the presentation includes Bleeding gastric ulcer/peptic ulcer/gastritis Lab Data MDM Lab Attestation statement: I reviewed the patient's lab results. 05/28/23 19:23 05/28/23 19:23 Labs: Lab Results 05/28/23 Range/Units 19:23 WBC 6.4 (4.8-10.8) X10*3/uL RBC 4.89 (4.60-5.80) X10*6/uL Hgb 14.0 (14.0-18.0) g/dl Hct 41.7 L (42.0-52.0) % MCV 85.3 (80.0-98.0) fL MCH 28.6 (27.0-33.0) pg MCHC 33.6 (31.0-36.0) g/dl RDW 13.1 (11.0-16.0) % Plt Count 274 (160-400) X10*3/uL MPV 9.5 (9.4-12.4) fL Immature Gran % (Auto) 0.2 (0.0-0.4) % Neut % (Auto) 53.4 (45-73) % Lymph % (Auto) 33.6 (20-40) % [place] % (Auto) 8.8 (2-11) % Eos % (Auto) 2.7 (0-4) % Baso % (Auto) 1.3 (0-2) % Lymph # (Auto) 2.1 (1.2-4.9) X10*3/uL [place] # (Auto) 0.6 (0.1-1.2) X10*3/uL Eos # (Auto) 0.2 (0.0-0.4) X10*3/uL Baso # (Auto) 0.1 (0.0-0.2) X10*3/uL Abs Immat Gran (auto) 0.01 (0.00-0.03) X10*3/uL Absolute Neuts (auto) 3.4 (2.0-8.3) x10*3/uL Absolute Nucleated RBC 0.000 (0.0-0.012) X10*3/uL Nucleated RBC % (auto) 0.0 (0.0-0.2) /100WBC Sodium 139 (135-145) mmol/L Potassium 3.4 (3.3-5.1) mmol/L Chloride 108 (96-108) mmol/L Carbon Dioxide 24 (22-29) mmol/L Anion Gap 10 L (12-20) BUN 15 (9-16) mg/dL Creatinine 0.75 (0.5-1.4) mg/dL Estim Creat Clear Calc 124.6 Estimated GFR > 60 Random Glucose 97 (60-115) mg/dL Calcium 9.3 D (8.4-10.2) mg/dL Total Bilirubin 0.6 (0.0-1.0) mg/dL AST 62 H (5-37) U/L ALT 53 H (0-40) U/L Alkaline Phosphatase 91 (39-117) U/L Total Protein 7.4 (6.5-8.0) g/dL Albumin 4.3 (3.5-5.0) g/dL Lipase 16 (8-78) U/L Urine Color Yellow Urine Appearance Turbid Urine pH 8.5 (5.0-9.0) Ur Specific [place] 1.020 (1.005-1.025) Urine Protein Negative (Neg-Trace) mg/dL Urine Glucose (UA) Negative (Negative) mg/dL Urine Ketones Negative (Negative) mg/dL Urine Blood Negative (Negative) Urine Nitrite Negative (Negative) Ur Leukocyte Esterase Negative (Negative) Discharge Plan Discharge Clinical Impression: Gastritis Patient Disposition: Home, Self-Care Instructions: Gastritis (ED) Additional Instructions: Continue your medications for gastritis Avoid caffeine as advised Medicated for nausea and vomiting Prescriptions: New ondansetron 4 mg tablet,disintegrating 4 mg PO Q6-8H PRN (Reason: nausea and vomiting) Qty: 7 0RF No Action gabapentin 300 mg capsule 300 mg PO TID 30 Days Qty: 90 3RF Rx Instructions: take w/ 600mg tab = 900mg per dose valacyclovir 1 gram tablet 1,000 mg PO Q12H 10 Days Qty: 20 0RF metoclopramide HCl [Reglan] 10 mg tablet 10 mg PO Q6H PRN (Reason: nausea and vomiting) Qty: 7 0RF prochlorperazine maleate [Compazine] 5 mg tablet 5 mg PO BID PRN (Reason: nausea and vomiting) Qty: 10 0RF dicyclomine 20 mg tablet 20 mg PO QID PRN (Reason: abdominal pain) Qty: 12 0RF ondansetron 4 mg tablet,disintegrating 4 mg PO Q6-8H PRN (Reason: nausea and vomiting) Qty: 7 0RF Gaviscon Extra Strength 254-237.5 mg/5 mL suspension 10 ml PO QID PRN (Reason: dyspepsia) Qty: 355 0RF sucralfate 1 gram tablet 1 g PO BID Qty: 60 0RF Magic Mouthwash Diphen/Lido/Antacid 1:1:1 240 mL suspension 5 ml PO TID Qty: 240 0RF Rx Instructions: Lidocaine Viscous 2 % 80mL; diphenhydramine 12.5 mg/5 mL 80mL; aluminum-mag hydrox-simeth [id number]/5mL 80mL Swish and spit, do not swallow gabapentin 600 mg tablet 600 mg PO TID 7 Days Qty: 21 0RF promethazine 12.5 mg tablet 12.5 mg PO Q6-8H pantoprazole 40 mg tablet,delayed release (DR/EC) 40 mg PO BID albuterol sulfate [ProAir HFA] 90 mcg/actuation HFA aerosol inhaler 0 mcg inhalation aripiprazole 15 mg tablet 15 mg PO DAILY nifedipine 30 mg tablet extended release 24hr 30 mg PO DAILY tamsulosin 0.4 mg capsule 0.4 mg PO DAILY lidocaine 4 % cream topical diazepam 5 mg tablet 5 mg PO BID PRN alum-mag hydroxide-simeth [Mintox Maximum Strength] 400-400-40 mg/5 mL suspension 20 ml PO QID PRN cetirizine 10 mg tablet 10 mg PO DAILY PRN (Reason: allergies) lisinopril 10 mg tablet 10 mg PO DAILY hydroxyzine pamoate 100 mg capsule 100 mg PO BEDTIME PRN (Reason: insomnia) nystatin 100,000 unit/gram powder topical BID famotidine 20 mg tablet 20 mg PO BEDTIME esomeprazole magnesium [Nexium] 40 mg capsule,delayed release(DR/EC) 40 mg PO DAILY ondansetron HCl 4 mg tablet 4 mg PO Q8H clonidine HCl 0.1 mg tablet 0.1 mg PO BEDTIME Interventions: ED Discharge Assessment Last Done: 05/28/23 20:50 Discharge Date/Time: 05/28/23 20:51
[2023-05-28 19:32] LABS: MANUAL DIFF FLAG NO
[2023-05-28 19:33] LABS: Basophils Absolute Auto 0.1 X10*3/uL (0.0-0.2); Basophils Percent Auto 1.3 % (0-2); Eosinophils Absolute Auto 0.2 X10*3/uL (0.0-0.4); Eosinophils Percent Auto 2.7 % (0-4); Hematocrit 41.7 % (42.0-52.0); Imm Gran Abs Auto 0.01 X10*3/uL (0.00-0.03); Imm Gran Pct Auto 0.2 % (0.0-0.4); Lymphocytes Absolute Auto 2.1 X10*3/uL (1.2-4.9); Lymphocytes Percent Auto 33.6 % (20-40); Mean Corpuscular HGB Conc 33.6 g/dl (31.0-36.0); Mean Corpuscular Hemoglobin 28.6 pg (27.0-33.0); Mean Corpuscular Volume 85.3 fL (80.0-98.0); Mean Platelet Volume 9.5 fL (9.4-12.4); Monocytes Absolute Auto 0.6 X10*3/uL (0.1-1.2); Monocytes Percent Auto 8.8 % (2-11); Neutrophils Absolute Auto 3.4 x10*3/uL (2.0-8.3); Neutrophils Percent Auto 53.4 % (45-73); Platelet Count 274 X10*3/uL (160-400); Red Blood Count 4.89 X10*6/uL (4.60-5.80); Red Cell Distribution Width 13.1 % (11.0-16.0); White Blood Count 6.4 X10*3/uL (4.8-10.8)
[2023-05-28 19:35] LABS: Appearance Urine Turbid; Color Urine Yellow; Glucose Urine UA Negative (Negative); Leukocyte Esterase Urine Negative (Negative); Nitrite Urine Negative (Negative); PH 8.5 (5.0-9.0); Urine Blood Negative (Negative); Urine Ketones Negative (Negative); Urine Protein Negative (Neg-Trace)
[2023-05-28 19:53] LABS: Alanine Aminotransferase 53 U/L (0-40); Albumin Level 4.3 g/dL (3.5-5.0); Alkaline Phosphatase 91 U/L (39-117); Anion Gap 10 (12-20); Aspartate Amino Transferase 62 U/L (5-37); Bilirubin Total 0.6 mg/dL (0.0-1.0); Blood Urea Nitrogen 15 mg/dL (9-16); Calcium 9.3 mg/dL (8.4-10.2); Carbon Dioxide 24 mmol/L (22-29); Chloride 108 mmol/L (96-108); Creatinine Clr Calc Pharmacy 124.6; Estimated Glomerular Filt Rate > 60; Glucose Random 97 mg/dL (60-115); Lipase 16 U/L (8-78); Potassium 3.4 mmol/L (3.3-5.1); Sodium 139 mmol/L (135-145); Total Protein 7.4 g/dL (6.5-8.0)
[2023-05-28] MEDS: Ondansetron ODT 4 MG TAB.RAPDIS TRANSLINGU (20:04)
[2023-05-28] MEDS: Magnesium Hydrox/Alum Hydrox 30 ML ORAL.SUSP PO (20:04)
[2023-05-28 20:49] VITALS: BP 129/92; PULSE 87; RESP 16; TEMP 36.8; O2SAT 97
== END 2023-05-28 20:51 | disposition home or self-care (01) ==
PROVIDERS: Emergency Provider Internal Medicine
DX: K29.70 Gastritis, unspecified, without bleeding (principal); I10 Essential (primary) hypertension; Z87.820 Personal history of traumatic brain injury; Z87.891 Personal history of nicotine dependence; Z79.899 Other long term (current) drug therapy
CPT/HCPCS: 36415; 80053; 81003; 83690; 85025; 99283; 99284

== ENCOUNTER 2023-06-21 18:42 | Emergency (ER) | payer OTHER, SELFPAY ==
[2023-06-21 18:53] VITALS: BP 130/100; BP 144/83; PULSE 87; PULSE 91; RESP 18; TEMP 37.3; O2SAT 95; O2SAT 99; BMI 23.6
[2023-06-21 19:36] LABS: MANUAL DIFF FLAG NO
[2023-06-21 19:42] LABS: Appearance Urine Clear; Color Urine Dark Yellow; Glucose Urine UA Negative (Negative); Leukocyte Esterase Urine Trace (Negative); Nitrite Urine Negative (Negative); Specific Gravity - Urine 1.025 (1.005-1.025); UMIC TRIGGER UA YES; Urine Blood Negative (Negative); Urine Ketones Trace mg/dL (Negative); Urine Protein 30 (1+) mg/dL (Neg-Trace)
[2023-06-21 19:44] LABS: Bacteria Urine None Seen (None Seen); Hyaline Casts Urine 0-2 /LPF (0-2); RBC Urine 0-2 /HPF (0-2); Squamous Epithelial Cell Urine 0-2 /HPF (0-2); WBC Urine 0-5 /HPF (0-5)
[2023-06-21 19:45] LABS: Basophils Absolute Auto 0.1 X10*3/uL (0.0-0.2); Basophils Percent Auto 0.7 % (0-2); Eosinophils Absolute Auto 0.2 X10*3/uL (0.0-0.4); Eosinophils Percent Auto 2.1 % (0-4); Hematocrit 41.4 % (42.0-52.0); Hemoglobin 14.1 g/dl (14.0-18.0); Imm Gran Abs Auto 0.02 X10*3/uL (0.00-0.03); Imm Gran Pct Auto 0.3 % (0.0-0.4); Lymphocytes Absolute Auto 2.2 X10*3/uL (1.2-4.9); Lymphocytes Percent Auto 28.7 % (20-40); Mean Corpuscular HGB Conc 34.1 g/dl (31.0-36.0); Mean Corpuscular Hemoglobin 28.7 pg (27.0-33.0); Mean Corpuscular Volume 84.3 fL (80.0-98.0); Monocytes Absolute Auto 0.6 X10*3/uL (0.1-1.2); Monocytes Percent Auto 7.6 % (2-11); Neutrophils Absolute Auto 4.5 x10*3/uL (2.0-8.3); Neutrophils Percent Auto 60.6 % (45-73); Platelet Count 297 X10*3/uL (160-400); Red Blood Count 4.91 X10*6/uL (4.60-5.80); Red Cell Distribution Width 12.9 % (11.0-16.0); White Blood Count 7.5 X10*3/uL (4.8-10.8)
[2023-06-21 19:48] LABS: Amphetamine Screen Urine Not Detected (Not Detect); Barbiturates, Urine Not Detected (Not Detect); Benzodiazepines Screen Urine Not Detected (Not Detect); Cannabinoid Screen Urine Not Detected (Not Detect); Cocaine Screen Urine Not Detected (Not Detect); Fentanyl, urine Not Detected (Not Detect); Opiate Screen Urine Not Detected (Not Detect); Phencyclidine Screen Urine Not Detected (Not Detect)
[2023-06-21 20:06] LABS: Alanine Aminotransferase 47 U/L (0-40); Albumin Level 4.3 g/dL (3.5-5.0); Alkaline Phosphatase 107 U/L (39-117); Anion Gap 12 (12-20); Aspartate Amino Transferase 50 U/L (5-37); Bilirubin Total 0.5 mg/dL (0.0-1.0); Blood Urea Nitrogen 16 mg/dL (9-16); Calcium 8.9 mg/dL (8.4-10.2); Carbon Dioxide 26 mmol/L (22-29); Chloride 106 mmol/L (96-108); Creatinine Clr Calc Pharmacy 117.3; Estimated Glomerular Filt Rate > 60; Ethanol < 10 mg/dL; Glucose Random 145 mg/dL (60-115); Potassium 3.6 mmol/L (3.3-5.1); Sodium 140 mmol/L (135-145); Total Protein 7.3 g/dL (6.5-8.0)
--- NOTE | 2023-06-21 21:33 | ED.PSYCH ---
HPI - Psych General Chief Complaint: Behavioral Concerns Stated Complaint: MENTAL HEALTH EVAL, AUTISTIC, PT HAS PTSD Time Seen by Provider: 06/21/23 21:09 Source: patient Mode of arrival: EMS Limitations: no limitations History of Present Illness HPI Narrative: patient comes to the emergency room via ambulance. Per day today, patient had a verbal disagreement with his aunt. According to the patient, he did not threaten her in any way, he did not make any suicidal statements. Patient called the police and they showed up to the patient's residence. Initially, patient was resistant to come to emergency room because he had done nothing wrong other than had a verbal disagreement, eventually he agreed to come to the ED. Patient is adamant that he did not make any suicidal or homicidal comments. Patient is not SI or HI. Related Data Home Medications Medication Instructions Recorded Confirmed albuterol sulfate 90 mcg/actuation 2 puff inhalation Q4-6H PRN 06/21/23 06/21/23 aerosol inhaler (Ventolin HFA) Shortness Of Breath Or Wheezing aripiprazole 15 mg tablet 15 mg PO DAILY 06/21/23 06/21/23 clonidine HCl 0.1 mg tablet 0.2 mg PO BEDTIME 06/21/23 06/21/23 gabapentin 300 mg capsule 300 mg PO TID 06/21/23 06/21/23 gabapentin 600 mg tablet 600 mg PO TID 06/21/23 06/21/23 hydroxyzine pamoate 50 mg capsule 50 - 100 mg PO BEDTIME PRN Anxiety 06/21/23 06/21/23 lisinopril 10 mg tablet 10 mg PO DAILY 06/21/23 06/21/23 nifedipine 30 mg tablet,extended 30 mg PO DAILY 06/21/23 06/21/23 release 24 hr sucralfate 1 gram tablet 1 g PO QID 06/21/23 06/21/23 tamsulosin 0.4 mg capsule 0.4 mg PO DAILY 06/21/23 06/21/23 Allergies Allergy/AdvReac Type Severity Reaction Status Date / Time amoxicillin Allergy Vomiting Verified 05/20/23 14:13 heparin Allergy Hives Verified 05/20/23 14:13 lamotrigine [From Lamictal] Allergy Hives Verified 05/20/23 14:13 levetiracetam [From Keppra] Allergy Hives Verified 05/20/23 14:13 Review of Systems Review of Systems: Constitutional : No Weight loss, No Fever, No Chills, No Night Sweats, No Fatigue, No Malaise ENT/Mouth : No Hearing loss, No Ear Pain, No Nasal Congestion, No Sinus Pain, No Hoarseness, No sore throat, No Rhinorrhea, No Swallowing Difficulty Eyes: No Eye Pain, No Swelling, No Redness, No Foreign Body, No Discharge, No Vision Changes Cardiovascular : No Chest Pain, No SOB, No Dyspnea on Exertion, No Orthopnea, No Edema, No Palpitations Respiratory : No Cough, No Sputum, No Wheezing, No Smoke Exposure, No Dyspnea Gastrointestinal : No Nausea, No Vomiting, No Diarrhea, No Constipation, No abdominal Pain, No Hematochezia, No Melena Genitourinary : no irregular bleeding, No Dysuria, No Urinary Frequency, No Hematuria, No Urinary Incontinence, No Urgency, No Flank Pain, No Urinary Flow Changes, No Hesitancy Musculoskeletal : No joint pain, No Myalgias, No Joint Swelling Skin : No Skin Lesions, No rash Neuro : No Weakness, No Numbness, No Paresthesias, No Loss of Consciousness, No Dizziness, No Headache Psych : No Anxiety/Panic, No Depression, No SI/HI/AH/VH, Had an argument with his aunt Heme/Lymph: No Bruising, No Bleeding,No Lymphadenopathy Endocrine : No Polyuria, No Polydipsia, No Temperature Intolerance PMFSH Past Medical History Medical History Essential hypertension Sleep disorder Seizure disorder Back pain Neck pain PTSD (post-traumatic stress disorder) Seizure TBI (traumatic brain injury) Bipolar 1 disorder Surgical History Hx of hernia repair Family History Family History Mother Cancer Family/Other No problems noted. Father Heart problem Social History Social History Alcohol intake: former Patient Tobacco Use Status: Former Tobacco user Advance Directives: No Advance Directives Information Provided: No Physical Exam Vital Signs: Vital Signs: Last Vital Signs Temp 99.1 F 06/21/23 18:53 Pulse 91 06/21/23 18:53 Resp 18 06/21/23 18:53 BP 144/83 H 06/21/23 18:53 Pulse Ox 95 06/21/23 18:53 O2 Del Method Room Air 06/21/23 18:53 BMI result Body Mass Index 23.6 Const: Other: Appearance: Alert. Oriented X3. No acute distress. Eyes: Pupils equal, round and reactive to light. ENT: Pharynx normal. Neck: Normal inspection. Neck supple. No lymph nodes noted. No crepitus CVS: Normal heart rate and rhythm. Pulses normal. Normal S1 and S2 Respiratory: No respiratory distress. Breath sounds normal. No Wheezing. No rales Abdomen: Soft and nontender. No rigidity. No distention. Skin: Skin warm and dry. Normal skin color. Normal skin turgor. Extremities: No lower extremity edema. No Lacerations. No Rash Neuro: Oriented X 3. No motor deficit. No sensory deficit. Moving all extremities. No slurred speech. CN 2 through 12 grossly intact Psych: calm, cooperative, normal affect Medical Decision Making Medical Decision Making MDM Narrative: - patient is alert and oriented x3, no acute distress, calm and cooperative. - Patient is adamant that he is not suicidal or homicidal, patient had a verbal altercation with his aunt, no physical altercation. - At this time, there is no need to keep the patient in the [facility], section 12 it is not indicated - due to system's lack of diagnosic options, patient will be discharged as anxiety Differential Diagnosis Differential Diagnoses: The differential diagnosis associated with the presentation includes ( anxiety, depression, anger) Lab Data 06/21/23 19:26 06/21/23 19:27 Labs: Lab Results 06/21/23 06/21/23 Range/Units 19:26 19:27 WBC 7.5 (4.8-10.8) X10*3/uL RBC 4.91 (4.60-5.80) X10*6/uL Hgb 14.1 (14.0-18.0) g/dl Hct 41.4 L (42.0-52.0) % MCV 84.3 (80.0-98.0) fL MCH 28.7 (27.0-33.0) pg MCHC 34.1 (31.0-36.0) g/dl RDW 12.9 (11.0-16.0) % Plt Count 297 (160-400) X10*3/uL MPV 10.0 (9.4-12.4) fL Immature Gran % (Auto) 0.3 (0.0-0.4) % Neut % (Auto) 60.6 (45-73) % Lymph % (Auto) 28.7 (20-40) % [place] % (Auto) 7.6 (2-11) % Eos % (Auto) 2.1 (0-4) % Baso % (Auto) 0.7 (0-2) % Lymph # (Auto) 2.2 (1.2-4.9) X10*3/uL [place] # (Auto) 0.6 (0.1-1.2) X10*3/uL Eos # (Auto) 0.2 (0.0-0.4) X10*3/uL Baso # (Auto) 0.1 (0.0-0.2) X10*3/uL Abs Immat Gran (auto) 0.02 (0.00-0.03) X10*3/uL Absolute Neuts (auto) 4.5 (2.0-8.3) x10*3/uL Absolute Nucleated RBC 0.000 (0.0-0.012) X10*3/uL Nucleated RBC % (auto) 0.0 (0.0-0.2) /100WBC Sodium 140 (135-145) mmol/L Potassium 3.6 (3.3-5.1) mmol/L Chloride 106 (96-108) mmol/L Carbon Dioxide 26 (22-29) mmol/L Anion Gap 12 (12-20) BUN 16 (9-16) mg/dL Creatinine 0.87 (0.5-1.4) mg/dL Estim Creat Clear Calc 117.3 Estimated GFR > 60 Random Glucose 145 H (60-115) mg/dL Calcium 8.9 (8.4-10.2) mg/dL Total Bilirubin 0.5 (0.0-1.0) mg/dL AST 50 H (5-37) U/L ALT 47 H (0-40) U/L Alkaline Phosphatase 107 (39-117) U/L Total Protein 7.3 (6.5-8.0) g/dL Albumin 4.3 (3.5-5.0) g/dL Urine Color Dark Yellow Urine Appearance Clear Urine pH 7.0 (5.0-9.0) Ur Specific [place] 1.025 (1.005-1.025) Urine Protein 30 (1+) H (Neg-Trace) mg/dL Urine Glucose (UA) Negative (Negative) mg/dL Urine Ketones Trace (Negative) mg/dL Urine Blood Negative (Negative) Urine Nitrite Negative (Negative) Ur Leukocyte Esterase Trace H (Negative) Urine RBC 0-2 (0-2) /HPF Urine WBC 0-5 (0-5) /HPF Ur Squamous Epith Cells 0-2 (0-2) /HPF Urine Bacteria None Seen (None Seen) Hyaline Casts 0-2 (0-2) /LPF Urine Opiates Screen Not Detected (Not Detect) Urine Fentanyl Screen Not Detected (Not Detect) Ur Barbiturates Screen Not Detected (Not Detect) Ur Phencyclidine Scrn Not Detected (Not Detect) Ur Amphetamines Screen Not Detected (Not Detect) U Benzodiazepines Scrn Not Detected (Not Detect) Urine Cocaine Screen Not Detected (Not Detect) U Marijuana (THC) Screen Not Detected (Not Detect) Ethyl Alcohol Cancelled < 10 Discharge Plan Discharge Clinical Impression: Anxiety Patient Disposition: Home, Self-Care Instructions: Anxiety (ED) Additional Instructions: Please follow-up with your primary care physician tomorrow. If you have any worsening or new symptoms, please return to the emergency room or call 911 Prescriptions: No Action nifedipine 30 mg tablet extended release 24hr 30 mg PO DAILY clonidine HCl 0.1 mg tablet 0.2 mg PO BEDTIME sucralfate 1 gram tablet 1 g PO QID hydroxyzine pamoate 50 mg capsule 50 - 100 mg PO BEDTIME PRN (Reason: Anxiety) lisinopril 10 mg tablet 10 mg PO DAILY aripiprazole 15 mg tablet 15 mg PO DAILY gabapentin 600 mg tablet 600 mg PO TID tamsulosin 0.4 mg capsule 0.4 mg PO DAILY gabapentin 300 mg capsule 300 mg PO TID albuterol sulfate [Ventolin HFA] 90 mcg/actuation HFA aerosol inhaler 2 puff inhalation Q4-6H PRN (Reason: Shortness Of Breath Or Wheezing)
== END 2023-06-21 22:05 | disposition home or self-care (01) ==
PROVIDERS: Emergency Provider Emergency Medicine
DX: F41.9 Anxiety disorder, unspecified (principal); I10 Essential (primary) hypertension; F31.9 Bipolar disorder, unspecified; F43.10 Post-traumatic stress disorder, unspecified; Z87.820 Personal history of traumatic brain injury; Z87.891 Personal history of nicotine dependence; Z79.899 Other long term (current) drug therapy
CPT/HCPCS: 36415; 80053; 80307; 81001; 85025; 99282; 99283

== ENCOUNTER 2023-07-01 17:33 | Emergency (ER) | payer OTHER, SELFPAY ==
[2023-07-01 17:43] VITALS: BP 144/96; PULSE 83; O2SAT 97
--- NOTE | 2023-07-01 18:15 | ED_ITS ---
HPI - General Adult General Chief complaint: Headache Stated complaint: migraine headache since 5:30 am,nausea Time Seen by Provider: 07/01/23 17:46 Related Data Home Medications ?Medication ?Instructions ?Recorded ?Confirmed albuterol sulfate 90 mcg/actuation 2 puff inhalation Q4-6H PRN 06/21/23 12/23/23 aerosol inhaler (Ventolin HFA) Shortness Of Breath Or Wheezing aripiprazole 15 mg tablet 15 mg PO DAILY 06/21/23 12/23/23 clonidine HCl 0.1 mg tablet 0.2 mg PO BEDTIME 06/21/23 12/23/23 hydroxyzine pamoate 50 mg capsule 50 - 100 mg PO BEDTIME PRN Anxiety 06/21/23 12/23/23 lisinopril 10 mg tablet 10 mg PO DAILY 06/21/23 12/23/23 nifedipine 30 mg tablet,extended 30 mg PO DAILY 06/21/23 12/23/23 release 24 hr sucralfate 1 gram tablet 1 g PO TID 06/21/23 12/23/23 tamsulosin 0.4 mg capsule 0.4 mg PO DAILY 06/21/23 12/23/23 Previous Rx's ?Medication ?Instructions ?Recorded topiramate 50 mg tablet 50 mg PO BID 30 days #60 tabs 09/01/23 topiramate 100 mg tablet (Topamax) 100 mg PO BID 90 days #180 tabs 11/26/23 bacitracin 500 unit/gram topical 1 appl topical Q8H #14 grams 12/01/23 ointment fremanezumab-vfrm 225 mg/1.5 mL 225 mg (1.5 mL) subcut ONCE 30 12/15/23 subcutaneous auto-injector (Ajovy) days #1.5 mL diclofenac potassium 50 mg tablet 50 mg PO BID PRN migraine headache 01/01/24 30 days #60 tabs gabapentin 300 mg capsule 300 mg PO TID 30 days #90 caps 01/09/24 Allergies Allergy/AdvReac Type Severity Reaction Status Date / Time amoxicillin Allergy Vomiting Verified 12/23/23 10:32 heparin Allergy Hives Verified 12/23/23 10:32 lamotrigine [From Lamictal] Allergy Hives Verified 12/23/23 10:32 levetiracetam [From Keppra] Allergy Hives Verified 12/23/23 10:32 PMFSH Past Medical History Medical History Essential hypertension Sleep disorder Seizure disorder Back pain Neck pain PTSD (post-traumatic stress disorder) Seizure TBI (traumatic brain injury) Bipolar 1 disorder Surgical History Hx of hernia repair Family History Family History Mother Cancer Family/Other No problems noted. Father Heart problem Social History Social History Alcohol intake: current Alcohol intake frequency: a few times a month Alcohol type: wine Patient Tobacco Use Status: Former Tobacco user Physical Exam ED Vital Signs: BMI result Body Mass Index 29.2 Course Course Course Narrative: This is an RME: Additional HPI, ROS, PE not included below will be deferred to primary provider. 37-year-old male presents with nausea, vomiting, lightheadedness, headache, feeling unwell for the past few days worsening. Comes in by ambulance. Plan labs, viral test. Neurological assessment intact. Medications Administered Discontinued Medications Generic Name Dose Route Start Last Admin Trade Name Freq PRN Reason Stop Dose Admin Ondansetron HCl 4 mg 07/02/23 00:09 07/02/23 00:26 Ondansetron Odt 4 Mg Tab.Rapdis TRANSLINGU 07/02/23 00:10 4 mg ONCE ONE Administration Sumatriptan Succinate 6 mg 07/02/23 00:16 07/02/23 00:26 Sumatriptan Succinate 6 Mg/0.5 Ml Vial SUBCUT 07/02/23 00:17 6 mg ONCE ONE Administration Medical Decision Making Lab Data 07/01/23 18:21 07/01/23 18:21 Labs: Lab Results 07/01/23 Range/Units 18:21 WBC 5.5 (4.8-10.8) X10*3/uL RBC 5.40 (4.60-5.80) X10*6/uL Hgb 15.3 (14.0-18.0) g/dl Hct 45.7 (42.0-52.0) % MCV 84.6 (80.0-98.0) fL MCH 28.3 (27.0-33.0) pg MCHC 33.5 (31.0-36.0) g/dl RDW 13.1 (11.0-16.0) % Plt Count 318 (160-400) X10*3/uL MPV 10.2 (9.4-12.4) fL Immature Gran % (Auto) 0.4 (0.0-0.4) % Neut % (Auto) 46.8 (45-73) % Lymph % (Auto) 38.7 (20-40) % [place] % (Auto) 8.7 (2-11) % Eos % (Auto) 4.3 H (0-4) % Baso % (Auto) 1.1 (0-2) % Lymph # (Auto) 2.1 (1.2-4.9) X10*3/uL [place] # (Auto) 0.5 (0.1-1.2) X10*3/uL Eos # (Auto) 0.2 (0.0-0.4) X10*3/uL Baso # (Auto) 0.1 (0.0-0.2) X10*3/uL Abs Immat Gran (auto) 0.02 (0.00-0.03) X10*3/uL Absolute Neuts (auto) 2.6 (2.0-8.3) x10*3/uL Absolute Nucleated RBC 0.000 (0.0-0.012) X10*3/uL Nucleated RBC % (auto) 0.0 (0.0-0.2) /100WBC Sodium 140 (135-145) mmol/L Potassium 3.5 (3.3-5.1) mmol/L Chloride 110 H (96-108) mmol/L Carbon Dioxide 24 (22-29) mmol/L Anion Gap 10 L (12-20) BUN 22 H (9-16) mg/dL Creatinine 0.87 (0.5-1.4) mg/dL Estim Creat Clear Calc 106.3 Estimated GFR > 60 Random Glucose 101 (60-115) mg/dL Calcium 9.2 (8.4-10.2) mg/dL Magnesium 2.2 (1.6-2.6) mg/dL Total Bilirubin 0.4 (0.0-1.0) mg/dL AST 37 (5-37) U/L ALT 49 H (0-40) U/L Alkaline Phosphatase 112 (39-117) U/L Total Protein 7.3 (6.5-8.0) g/dL Albumin 4.2 (3.5-5.0) g/dL Lipase 23 (8-78) U/L Influenza Type A (PCR) NEGATIVE (Negative) Influenza Type B (PCR) NEGATIVE (Negative) RSV RNA Qual (PCR) NEGATIVE (Negative) SARS-CoV-2 RNA (RT-PCR) NEGATIVE (Negative) Discharge Plan Discharge Clinical Impression: Migraine Patient Disposition: Home, Self-Care Instructions: Migraine Headache (ED) Additional Instructions: Drink plenty of fluids Take nausea medication as prescribed Imitrex/Tylenol for headache Take Imitrex 1 tablet at the onset of headache may repeat in 2 hours if headache persists not more than 2 tablets in 24 hours Prescriptions: No Action topiramate 50 mg tablet 50 mg PO BID 30 Days Qty: 60 3RF Ajovy Autoinjector 225 mg/1.5 mL auto-injector 225 mg subcut ONCE 30 Days Qty: 1.5 6RF Rx Instructions: administer 225mg sc q month diclofenac potassium 50 mg tablet 50 mg PO BID PRN (Reason: migraine headache) 30 Days Qty: 60 1RF gabapentin 300 mg capsule 300 mg PO TID 30 Days Qty: 90 3RF topiramate [Topamax] 100 mg tablet 100 mg PO BID 90 Days Qty: 180 0RF nifedipine 30 mg tablet extended release 24hr 30 mg PO DAILY clonidine HCl 0.1 mg tablet 0.2 mg PO BEDTIME sucralfate 1 gram tablet 1 g PO TID hydroxyzine pamoate 50 mg capsule 50 - 100 mg PO BEDTIME PRN (Reason: Anxiety) lisinopril 10 mg tablet 10 mg PO DAILY aripiprazole 15 mg tablet 15 mg PO DAILY tamsulosin 0.4 mg capsule 0.4 mg PO DAILY albuterol sulfate [Ventolin HFA] 90 mcg/actuation HFA aerosol inhaler 2 puff inhalation Q4-6H PRN (Reason: Shortness Of Breath Or Wheezing) bacitracin 500 unit/gram ointment 1 appl topical Q8H Qty: 14 0RF Interventions: ED Discharge Assessment Last Done: 07/02/23 00:44 Discharge Date/Time: 07/02/23 00:45 Print Language: Spanish
[2023-07-01 18:37] LABS: MANUAL DIFF FLAG NO
[2023-07-01 18:40] LABS: Basophils Absolute Auto 0.1 X10*3/uL (0.0-0.2); Basophils Percent Auto 1.1 % (0-2); Eosinophils Absolute Auto 0.2 X10*3/uL (0.0-0.4); Eosinophils Percent Auto 4.3 % (0-4); Hematocrit 45.7 % (42.0-52.0); Hemoglobin 15.3 g/dl (14.0-18.0); Imm Gran Abs Auto 0.02 X10*3/uL (0.00-0.03); Imm Gran Pct Auto 0.4 % (0.0-0.4); Lymphocytes Absolute Auto 2.1 X10*3/uL (1.2-4.9); Lymphocytes Percent Auto 38.7 % (20-40); Mean Corpuscular HGB Conc 33.5 g/dl (31.0-36.0); Mean Corpuscular Hemoglobin 28.3 pg (27.0-33.0); Mean Corpuscular Volume 84.6 fL (80.0-98.0); Mean Platelet Volume 10.2 fL (9.4-12.4); Monocytes Absolute Auto 0.5 X10*3/uL (0.1-1.2); Monocytes Percent Auto 8.7 % (2-11); Neutrophils Absolute Auto 2.6 x10*3/uL (2.0-8.3); Neutrophils Percent Auto 46.8 % (45-73); Platelet Count 318 X10*3/uL (160-400); Red Cell Distribution Width 13.1 % (11.0-16.0); White Blood Count 5.5 X10*3/uL (4.8-10.8)
[2023-07-01 18:47] VITALS: BP 137/94; PULSE 74; RESP 18; TEMP 36.7; O2SAT 97; BMI 29.2
[2023-07-01 18:57] LABS: Alanine Aminotransferase 49 U/L (0-40); Albumin Level 4.2 g/dL (3.5-5.0); Alkaline Phosphatase 112 U/L (39-117); Anion Gap 10 (12-20); Aspartate Amino Transferase 37 U/L (5-37); Bilirubin Total 0.4 mg/dL (0.0-1.0); Blood Urea Nitrogen 22 mg/dL (9-16); Calcium 9.2 mg/dL (8.4-10.2); Carbon Dioxide 24 mmol/L (22-29); Chloride 110 mmol/L (96-108); Creatinine Clr Calc Pharmacy 106.3; Estimated Glomerular Filt Rate > 60; Glucose Random 101 mg/dL (60-115); Lipase 23 U/L (8-78); Magnesium 2.2 mg/dL (1.6-2.6); Potassium 3.5 mmol/L (3.3-5.1); Sodium 140 mmol/L (135-145); Total Protein 7.3 g/dL (6.5-8.0)
[2023-07-01 19:17] LABS: Influenza A PCR NEGATIVE (Negative); Influenza B PCR NEGATIVE (Negative); Resp Syncy Virus RNA Qual PCR NEGATIVE (Negative); SARS COV2 PCR INHOUSE NEGATIVE (Negative)
[2023-07-01 23:57] VITALS: BP 127/68; PULSE 58; RESP 16; TEMP 36.6; O2SAT 99
--- NOTE | 2023-07-02 00:16 | ED_ITS ---
HPI - Headache General Chief Complaint: Headache Stated Complaint: migraine headache since 5:30 am,nausea Time Seen by Provider: 07/01/23 17:46 Source: patient Mode of arrival: ambulatory Limitations: no limitations History of Present Illness HPI Narrative: Patient with History of migraine headaches woke up at 05:30 with left-sided headache similar to that in the past also with nausea vomiting light sensitivity prior to arrival patient has some loose bowel no fever no neck pain Related Data Home Medications Medication Instructions Recorded Confirmed albuterol sulfate 90 mcg/actuation 2 puff inhalation Q4-6H PRN 06/21/23 06/21/23 aerosol inhaler (Ventolin HFA) Shortness Of Breath Or Wheezing aripiprazole 15 mg tablet 15 mg PO DAILY 06/21/23 06/21/23 clonidine HCl 0.1 mg tablet 0.2 mg PO BEDTIME 06/21/23 06/21/23 gabapentin 300 mg capsule 300 mg PO TID 06/21/23 06/21/23 gabapentin 600 mg tablet 600 mg PO TID 06/21/23 06/21/23 hydroxyzine pamoate 50 mg capsule 50 - 100 mg PO BEDTIME PRN Anxiety 06/21/23 06/21/23 lisinopril 10 mg tablet 10 mg PO DAILY 06/21/23 06/21/23 nifedipine 30 mg tablet,extended 30 mg PO DAILY 06/21/23 06/21/23 release 24 hr sucralfate 1 gram tablet 1 g PO QID 06/21/23 06/21/23 tamsulosin 0.4 mg capsule 0.4 mg PO DAILY 06/21/23 06/21/23 Previous Rx's Medication Instructions Recorded ibuprofen 600 mg tablet 600 mg PO Q6H PRN fever or pain 07/02/23 #30 tabs ondansetron 4 mg disintegrating 4 mg PO Q6-8H PRN nausea and 07/02/23 tablet vomiting #7 tabs sumatriptan succinate 50 mg tablet 50 mg PO Q2H PRN migraine headache 07/02/23 (Imitrex) #10 tabs Allergies Allergy/AdvReac Type Severity Reaction Status Date / Time amoxicillin Allergy Vomiting Verified 07/01/23 18:47 heparin Allergy Hives Verified 07/01/23 18:47 lamotrigine [From Lamictal] Allergy Hives Verified 07/01/23 18:47 levetiracetam [From Keppra] Allergy Hives Verified 07/01/23 18:47 Review of Systems 2 Review of Systems: Yes all other systems are reviewed and are negative [facility] Past Medical History Medical History Essential hypertension Sleep disorder Seizure disorder Back pain Neck pain PTSD (post-traumatic stress disorder) Seizure TBI (traumatic brain injury) Bipolar 1 disorder Surgical History Hx of hernia repair Family History Family History Mother Cancer Family/Other No problems noted. Father Heart problem Social History Social History Alcohol intake: former Patient Tobacco Use Status: Former Tobacco user Advance Directives: No Advance Directives Information Provided: Yes Physical Exam 2 Vital Signs: Vital Signs: Last Vital Signs Temp 97.9 F 07/01/23 23:57 Pulse 58 07/01/23 23:57 Resp 16 07/01/23 23:57 BP 127/68 07/01/23 23:57 Pulse Ox 99 07/01/23 23:57 O2 Del Method Room Air 07/01/23 23:57 BMI result Body Mass Index 29.2 Appearance: Alert. Oriented X3. No acute distress. Eyes: PERRLA, No Nystagmus light sensitive+ ENT: Pharynx normal. Oral Mucosa moist Neck: Normal inspection. Neck supple. CVS: Normal heart rate and rhythm. Pulses normal. Respiratory: No respiratory distress. Equal air entry bilateral, Abdomen: Soft and nontender. Bowel sounds are present, Skin: Skin warm and dry. Normal skin color. Normal skin turgor. Extremities: No lower extremity edema. No calf tenderness Neuro: Oriented X 3. No motor deficit. No sensory deficit.No cerebellar signs , cranial nerves II-XII intact Medications Administered Discontinued Medications Generic Name Dose Route Start Last Admin Trade Name Freq PRN Reason Stop Dose Admin Ondansetron HCl 4 mg 07/02/23 00:09 07/02/23 00:26 Ondansetron Odt 4 Mg Tab.Rapdis TRANSLINGU 07/02/23 00:10 4 mg ONCE ONE Administration Sumatriptan Succinate 6 mg 07/02/23 00:16 07/02/23 00:26 Sumatriptan Succinate 6 Mg/0.5 Ml Vial SUBCUT 07/02/23 00:17 6 mg ONCE ONE Administration Medical Decision Making Medical Decision Making [facility] Narrative: Patient history of migraine headache thumb with similar headache will try Imitrex , patient feeling better after Imitrex discharge patient home Differential Diagnosis Differential Diagnoses: The differential diagnosis associated with the presentation includes Migraine/tension headache Lab Data [facility] Lab Attestation statement: I reviewed the patient's lab results. 07/01/23 18:21 07/01/23 18:21 Labs: Lab Results 07/01/23 Range/Units 18:21 WBC 5.5 (4.8-10.8) X10*3/uL RBC 5.40 (4.60-5.80) X10*6/uL Hgb 15.3 (14.0-18.0) g/dl Hct 45.7 (42.0-52.0) % MCV 84.6 (80.0-98.0) fL MCH 28.3 (27.0-33.0) pg MCHC 33.5 (31.0-36.0) g/dl RDW 13.1 (11.0-16.0) % Plt Count 318 (160-400) X10*3/uL MPV 10.2 (9.4-12.4) fL Immature Gran % (Auto) 0.4 (0.0-0.4) % Neut % (Auto) 46.8 (45-73) % Lymph % (Auto) 38.7 (20-40) % [place] % (Auto) 8.7 (2-11) % Eos % (Auto) 4.3 H (0-4) % Baso % (Auto) 1.1 (0-2) % Lymph # (Auto) 2.1 (1.2-4.9) X10*3/uL [place] # (Auto) 0.5 (0.1-1.2) X10*3/uL Eos # (Auto) 0.2 (0.0-0.4) X10*3/uL Baso # (Auto) 0.1 (0.0-0.2) X10*3/uL Abs Immat Gran (auto) 0.02 (0.00-0.03) X10*3/uL Absolute Neuts (auto) 2.6 (2.0-8.3) x10*3/uL Absolute Nucleated RBC 0.000 (0.0-0.012) X10*3/uL Nucleated RBC % (auto) 0.0 (0.0-0.2) /100WBC Sodium 140 (135-145) mmol/L Potassium 3.5 (3.3-5.1) mmol/L Chloride 110 H (96-108) mmol/L Carbon Dioxide 24 (22-29) mmol/L Anion Gap 10 L (12-20) BUN 22 H (9-16) mg/dL Creatinine 0.87 (0.5-1.4) mg/dL Estim Creat Clear Calc 106.3 Estimated GFR > 60 Random Glucose 101 (60-115) mg/dL Calcium 9.2 (8.4-10.2) mg/dL Magnesium 2.2 (1.6-2.6) mg/dL Total Bilirubin 0.4 (0.0-1.0) mg/dL AST 37 (5-37) U/L ALT 49 H (0-40) U/L Alkaline Phosphatase 112 (39-117) U/L Total Protein 7.3 (6.5-8.0) g/dL Albumin 4.2 (3.5-5.0) g/dL Lipase 23 (8-78) U/L Influenza Type A (PCR) NEGATIVE (Negative) Influenza Type B (PCR) NEGATIVE (Negative) RSV RNA Qual (PCR) NEGATIVE (Negative) SARS-CoV-2 RNA (RT-PCR) NEGATIVE (Negative) Discharge Plan Discharge Clinical Impression: Migraine Patient Disposition: Home, Self-Care Instructions: Migraine Headache (ED) Additional Instructions: Drink plenty of fluids Take nausea medication as prescribed Imitrex/Tylenol for headache Take Imitrex 1 tablet at the onset of headache may repeat in 2 hours if headache persists not more than 2 tablets in 24 hours Prescriptions: New ibuprofen 600 mg tablet 600 mg PO Q6H PRN (Reason: fever or pain) Qty: 30 0RF ondansetron 4 mg tablet,disintegrating 4 mg PO Q6-8H PRN (Reason: nausea and vomiting) Qty: 7 0RF sumatriptan succinate [Imitrex] 50 mg tablet 50 mg PO Q2H PRN (Reason: migraine headache) Qty: 10 0RF Rx Instructions: do not exceed 2 doses per 24 hrs No Action nifedipine 30 mg tablet extended release 24hr 30 mg PO DAILY clonidine HCl 0.1 mg tablet 0.2 mg PO BEDTIME sucralfate 1 gram tablet 1 g PO QID hydroxyzine pamoate 50 mg capsule 50 - 100 mg PO BEDTIME PRN (Reason: Anxiety) lisinopril 10 mg tablet 10 mg PO DAILY aripiprazole 15 mg tablet 15 mg PO DAILY gabapentin 600 mg tablet 600 mg PO TID tamsulosin 0.4 mg capsule 0.4 mg PO DAILY gabapentin 300 mg capsule 300 mg PO TID albuterol sulfate [Ventolin HFA] 90 mcg/actuation HFA aerosol inhaler 2 puff inhalation Q4-6H PRN (Reason: Shortness Of Breath Or Wheezing)
[2023-07-02] MEDS: SUMAtriptan succinate 6 MG/0.5 ML VIAL SUBCUT (00:26)
[2023-07-02] MEDS: Ondansetron ODT 4 MG TAB.RAPDIS TRANSLINGU (00:26)
== END 2023-07-02 00:45 | disposition home or self-care (01) ==
PROVIDERS: Physician Assistant; Emergency Provider Internal Medicine
DX: G43.909 Migraine, unspecified, not intractable, without status migrainosus (principal); Z20.822 Contact with and (suspected) exposure to COVID-19; Z20.828 Contact with and (suspected) exposure to other viral communicable diseases; I10 Essential (primary) hypertension; Z87.820 Personal history of traumatic brain injury; Z79.899 Other long term (current) drug therapy
CPT/HCPCS: 0241U; 36415; 80053; 83690; 83735; 85025; 96372; 99284; J3030

== ENCOUNTER 2023-07-11 20:07 | Emergency (ER) | payer OTHER, SELFPAY ==
--- NOTE | ~2023-07-11 | CT_ITS ---
EXAMINATION: CT HEAD WITHOUT CONTRAST CLINICAL INFORMATION: Chronic headaches with new features. COMPARISON: Multiple prior head CTs, most recent dated 11/21/2022. TECHNIQUE: Contiguous axial imaging was performed from the skullbase to vertex without intravenous administration of contrast. This CT examination was performed using dose optimization techniques as appropriate, variously including the following: *Automated exposure control *Adjustment of mA and/or kV according to patient size (this includes techniques or standardized protocols for targeted exams where dose is matched to indication/reason for exam; i.e. extremities or head) *Use of iterative reconstruction technique DLP: 1037 mGy-cm. FINDINGS: There is no evidence of acute intracranial hemorrhage or territorial infarction. No abnormal mass effect or midline shift is seen. No extra-axial fluid collections are identified. There is significant volume loss in the cerebellum, more so inferiorly with prominence of the fissures, also noted on prior imaging. No evidence of hydrocephalus. The osseous structures and soft tissues are normal. The mastoid air cells are well aerated. There is [id number] mucosal thickening in the right sphenoid sinus cavity and mild mucosal thickening dependently in the maxillary antra. CT/CT head/brain wo IV con IMPRESSION: No acute intracranial pathology. Significant cerebellar volume loss, more so inferiorly and of indeterminate etiology, though also evident on previous imaging.
[2023-07-11 20:09] VITALS: BP 140/90; PULSE 84; O2SAT 100
[2023-07-11 20:28] VITALS: BP 132/84; BP 140/90; PULSE 75; PULSE 84; RESP 20; TEMP 37.1; O2SAT 100; BMI 28.3
--- NOTE | 2023-07-11 20:51 | ED_ITS ---
HPI - Headache General Chief Complaint: Headache Stated Complaint: VOMITING SINCE NOON TODAY, DIZZY, 1010 HEADACHE Time Seen by Provider: 07/11/23 20:43 Source: patient and old records reviewed Mode of arrival: EMS Limitations: no limitations History of Present Illness HPI Narrative: 37 yo male with PMH of seizures, TBI, HTN, states since he fell about a year ago he has suffered severe headaches since and is seeing a neurologist normally he takes imitrex but it hasn't been working recently. Today he had a headache R frontal that woke him at 5am. He tried imitrex no relief now he has n/v and cannot keep his medications down. He is going to see his neurologist again for new medications. Pertinent past history: migraines Onset (ago): day(s) (today 5am) Onset description: gradually Location: right, frontal and temporal Severity: severe Quality & Timing: throbbing and progressively worsening Exacerbating factors: light and noise Relieving factors: nothing Context: occurred at rest Associated symptoms: nausea, vomiting and photophobia Treatments prior to arrival: none Related Data Home Medications Medication Instructions Recorded Confirmed albuterol sulfate 90 mcg/actuation 2 puff inhalation Q4-6H PRN 06/21/23 06/21/23 aerosol inhaler (Ventolin HFA) Shortness Of Breath Or Wheezing aripiprazole 15 mg tablet 15 mg PO DAILY 06/21/23 06/21/23 clonidine HCl 0.1 mg tablet 0.2 mg PO BEDTIME 06/21/23 06/21/23 gabapentin 300 mg capsule 300 mg PO TID 06/21/23 06/21/23 gabapentin 600 mg tablet 600 mg PO TID 06/21/23 06/21/23 hydroxyzine pamoate 50 mg capsule 50 - 100 mg PO BEDTIME PRN Anxiety 06/21/23 06/21/23 lisinopril 10 mg tablet 10 mg PO DAILY 06/21/23 06/21/23 nifedipine 30 mg tablet,extended 30 mg PO DAILY 06/21/23 06/21/23 release 24 hr sucralfate 1 gram tablet 1 g PO QID 06/21/23 06/21/23 tamsulosin 0.4 mg capsule 0.4 mg PO DAILY 06/21/23 06/21/23 Previous Rx's Medication Instructions Recorded ibuprofen 600 mg tablet 600 mg PO Q6H PRN fever or pain 07/02/23 #30 tabs ondansetron 4 mg disintegrating 4 mg PO Q6-8H PRN nausea and 07/02/23 tablet vomiting #7 tabs sumatriptan succinate 50 mg tablet 50 mg PO Q2H PRN migraine headache 07/02/23 (Imitrex) #10 tabs ondansetron 4 mg disintegrating 4 mg PO Q8H PRN nausea and 07/11/23 tablet vomiting #20 tabs Allergies Allergy/AdvReac Type Severity Reaction Status Date / Time amoxicillin Allergy Vomiting Verified 07/01/23 18:47 heparin Allergy Hives Verified 07/01/23 18:47 lamotrigine [From Lamictal] Allergy Hives Verified 07/01/23 18:47 levetiracetam [From Keppra] Allergy Hives Verified 07/01/23 18:47 Review of Systems Review of Systems: Constitutional : No Fever, No Chills, No Fatigue ENT/Mouth : No sore throat, No Rhinorrhea Eyes: No Eye Pain, No Swelling, No Redness Cardiovascular : No Chest Pain, No SOB, No Dyspnea on Exertion Respiratory : No Cough, No Sputum Gastrointestinal : pos Nausea, pos Vomiting, No Diarrhea, No abdominal Pain Genitourinary : No Dysuria, No Urinary Frequency, No Hematuria, Musculoskeletal : No joint pain, No Myalgias, No Joint Swelling Skin : No Skin Lesions, No rash Neuro : No Weakness, No Numbness, No Dizziness, positive Headache Psych : No Anxiety/Panic, No Depression Heme/Lymph: No Bruising, No Bleeding,No Lymphadenopathy Endocrine : No Polyuria, No Polydipsia All other systems reviewed and are negative [facility] Past Medical History Attestation statement: The following information was validated with the patient. Source: old records reviewed Medical History Essential hypertension Sleep disorder Seizure disorder Back pain Neck pain PTSD (post-traumatic stress disorder) Seizure TBI (traumatic brain injury) Bipolar 1 disorder Surgical History Hx of hernia repair Family History Family History Mother Cancer Family/Other No problems noted. Father Heart problem Social History Social History (Reviewed 07/11/23 @ 21:19 by EVERETT Farmer Alcohol intake: former Patient Tobacco Use Status: Former Tobacco user Smoked in Last 30 Days: No Use of substances other than those prescribed or required for medical reasons: No Advance Directives: No Advance Directives Information Provided: No Physical Exam Vital Signs: Vital Signs: Last Vital Signs Temp 98.7 F 07/11/23 20:28 Pulse 75 07/11/23 20:28 Resp 20 07/11/23 20:28 BP 132/84 07/11/23 20:28 Pulse Ox 100 07/11/23 20:28 O2 Del Method Room Air 07/11/23 20:28 BMI result Body Mass Index 28.3 Appearance: Alert. Oriented X3. No acute distress. Anxious Eyes: Pupils equal, round and reactive to light. ENT: Pharynx normal. Neck: Normal inspection. Neck supple. no meningeal signs CVS: Normal heart rate and rhythm. Pulses normal. Respiratory: No respiratory distress. Breath sounds normal. Abdomen: Soft and non-tender. Skin: Skin warm and dry. Normal skin color. Normal skin turgor. Extremities: No lower extremity edema. No calf ttp Neuro: Oriented X 3. No motor deficit. No sensory deficit. Medications Administered Discontinued Medications Generic Name Dose Route Start Last Admin Trade Name Freq PRN Reason Stop Dose Admin Gabapentin 900 mg 07/11/23 21:21 07/11/23 21:27 Gabapentin 300 Mg Capsule PO 07/11/23 21:22 900 mg ONCE ONE Administration Sodium Chloride 1,000 mls @ 999 mls/hr 07/11/23 21:00 07/11/23 22:15 Ns IV 07/11/23 22:00 Infused .Q1H1M THALIA Infusion Lorazepam 1 mg 07/11/23 20:55 07/11/23 21:07 Lorazepam 2 Mg/Ml Vial IVPUSH 07/11/23 20:56 1 mg STAT STA Administration Ondansetron HCl 4 mg 07/11/23 20:56 07/11/23 21:07 Ondansetron Hcl 4 Mg/2 Ml Vial IVPUSH 07/11/23 20:57 4 mg ONCE ONE Administration Medical Decision Making Medical Decision Making MDM Narrative: 37 yo male with PMH of seizures, TBI, HTN, migraines since traumatic fall and head injury about a year ago he notes they have worsened recently - he denies new trauma, blood thinners, fevers - at this time he has been seen here 4 times since June for same with increasing frequency. At this time will obtain CT head to rule out mass given worsening symptoms and increased pain and frequency. Will order IVF, labs and his PO gabapentin. Differential Diagnosis Differential Diagnoses: The differential diagnosis associated with the presentation includes tension headaches, post concussion, migraines Admission/Observation Consideration of admission/observation: Escalation of care including admission/observation considered able to keep his medications down and feels better stable for DC Independent Interpretation I performed an independent interpretation of an: CT Scan (no ICH) Radiology Impression Discussion of test interpretation with radiology: I have reviewed the radiologist's reading. External Record Review External record reviewed: Inpatient record and Office record Prescription Management I considered prescription management with: Other Discharge Plan Discharge Clinical Impression: Migraine Qualifiers: Migraine type: unspecified Status migrainosus presence: without status migrainosus Intractability: not intractable Qualified Code(s): G43.909 - Migraine, unspecified, not intractable, without status migrainosus Patient Disposition: Home, Self-Care Instructions: Migraine Headache (ED) Additional Instructions: no change on CT scan. please follow up with your neurologist. return for any worsening symptoms or concerns. monitor for fevers, numbness, weakness or any other concerns. Prescriptions: New ondansetron 4 mg tablet,disintegrating 4 mg PO Q8H PRN (Reason: nausea and vomiting) Qty: 20 0RF No Action ibuprofen 600 mg tablet 600 mg PO Q6H PRN (Reason: fever or pain) Qty: 30 0RF ondansetron 4 mg tablet,disintegrating 4 mg PO Q6-8H PRN (Reason: nausea and vomiting) Qty: 7 0RF sumatriptan succinate [Imitrex] 50 mg tablet 50 mg PO Q2H PRN (Reason: migraine headache) Qty: 10 0RF Rx Instructions: do not exceed 2 doses per 24 hrs nifedipine 30 mg tablet extended release 24hr 30 mg PO DAILY clonidine HCl 0.1 mg tablet 0.2 mg PO BEDTIME sucralfate 1 gram tablet 1 g PO QID hydroxyzine pamoate 50 mg capsule 50 - 100 mg PO BEDTIME PRN (Reason: Anxiety) lisinopril 10 mg tablet 10 mg PO DAILY aripiprazole 15 mg tablet 15 mg PO DAILY gabapentin 600 mg tablet 600 mg PO TID tamsulosin 0.4 mg capsule 0.4 mg PO DAILY gabapentin 300 mg capsule 300 mg PO TID albuterol sulfate [Ventolin HFA] 90 mcg/actuation HFA aerosol inhaler 2 puff inhalation Q4-6H PRN (Reason: Shortness Of Breath Or Wheezing)
[2023-07-11] MEDS: LORazepam 2 MG/ML VIAL 1 MG IVPUSH (21:07)
[2023-07-11] MEDS: ondansetron HCL 4 MG/2 ML VIAL IVPUSH (21:07)
[2023-07-11] MEDS: 0.9 % Sodium Chloride 1,000 ML 999 ML IV (21:07)
[2023-07-11] MEDS: Gabapentin 300 MG CAPSULE 900 MG PO (21:27)
--- NOTE | 2023-07-11 21:28 | PC.NURSE ---
pt medicated per Oct. Notified KAREN Ennis
[2023-07-11 23:00] VITALS: BP 128/90; PULSE 80; RESP 16; TEMP 36.7; O2SAT 98
== END 2023-07-11 23:07 | disposition home or self-care (01) ==
PROVIDERS: Emergency Provider Emergency Medicine
DX: G43.909 Migraine, unspecified, not intractable, without status migrainosus (principal); R42 Dizziness and giddiness; H53.143 Visual discomfort, bilateral; R11.2 Nausea with vomiting, unspecified; Z87.891 Personal history of nicotine dependence
CPT/HCPCS: 70450; 96361; 96374; 96375; 99284; J2060; J2405

== ENCOUNTER 2023-07-31 15:18 | Outpatient (AMB) | payer OTHER, SELFPAY ==
[2023-07-31 15:37] VITALS: BP 122/88; PULSE 77; O2SAT 98; BMI 29.6
--- NOTE | 2023-07-31 15:37 | A.OFFVIS_ITS ---
Intake Vital Signs 07/31/23 15:37 Height 5 ft 3 in Weight 167 lb BMI 29.6 BP 122/88 Blood Pressure Location Rt brachial Position Sitting Pulse 77 Pulse Source Pulse Oximeter Pulse Oximetry (%) 98 Oxygen Delivery Method Room Air Intake Visit Reasons: Follow up - ER visit (Migraines)-Confirmed Intake Note: Patient presents for follow up after ER visit fu-Migraines. Weatherse[employer] Technician Required: No Accompanied by: Self / Same As Patient Allergies amoxicillin Allergy (Verified 07/31/23 15:39) Vomiting heparin Allergy (Verified 07/31/23 15:39) Hives lamotrigine [From Lamictal] Allergy (Verified 07/31/23 15:39) Hives levetiracetam [From Keppra] Allergy (Verified 07/31/23 15:39) Hives HPI HPI Comments History of Present Illness Details 37 y/o male patient presents for follow up of seizure. 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 He is on gabapentin 900 mg TID. Pt states that he continues to have seizures almost everyday. He wakes up with urinary incontinence, and has multiple starring episodes a day. He tried Keppra, lamictal, dilantin and depakote, he had hives and not helpful for his seizure. Pt reports his brother had RNS done in [facility] and his seizures manages well after that. Pt wants to evaluation for RNS. Pt reports frequent migraine associated with nausea and vomiting. He had multiple ED visit for migraine. He uses sumatriptan 50 mg for acute migraine treatment, it helped at the beginning but not anymore. Pt has hx of ANABEL and is on CPAP. He is followed by Sleep Medicine [facility]. [facility] Medical History Essential hypertension Sleep disorder Seizure disorder Back pain Neck pain PTSD (post-traumatic stress disorder) Seizure TBI (traumatic brain injury) Bipolar 1 disorder Surgical History Hx of hernia repair Family History Mother Cancer Family/Other No problems noted. 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 General: cooperative, comfortable, no acute distress and well developed Nutritional Appearance: average body habitus Orientation/consciousness: patient oriented x3 HEENT Head: Yes normal to inspection and Yes normocephalic Throat: Yes other (mallampatti grade 4) Neck Neck: Yes normal visual inspection Neuro General: patient oriented x3, tone normal and moves all extremities Cranial nerves: Yes CN's II-XII intact bilaterally, Yes Bilaterally intact EOM present, Yes Nystagmus not present, Yes Normal facial strength present and Yes Midline tongue present Speech: Abnormal speech present Gait exam (Neuro): Normal gait present Motor exam (neuro): 5/5 motor strength present throughout and Normal motor muscle tone present throughout Deep tendon reflexes (DTR's): Right triceps reflex intensity grade: 2+, Left triceps reflex intensity grade: 2+, Rt Biceps (C5, C6): 2+, Left biceps reflex intensity grade: 2+, Right brachioradialis reflex intensity grade: 2+, Left brachioradialis reflex intensity grade: 2+, Right patellar reflex intensity grade: 3+ and Left patellar reflex intensity grade: 3+ Coordination: [id number] test normal Psych Speech and movement: Pressured speech present and Echolalia present (Psych) Affect: Anxious affect present Assessment & Plan Assessment & Plan (1) Seizure disorder: Code(s): G40.909 - Epilepsy, unspecified, not intractable, without status epilepticus (2) Migraine: Code(s): G43.909 - Migraine, unspecified, not intractable, without status migrainosus Plan Advised patient to try topiramate 50 mg qHS for a week and then increase to 50 mg BID for migraine prevention and manage seizure. Continue to take gabapentin 900 mg TID. Refer patient to [facility] Ep[facility]psy clinic for RNS. Will check labs in 4 weeks. Orders: Orders Comprehensive Met. Panel Today G40.909 - Epilepsy, unspecified, not intractable, without status epilepticus Complete Blood Count Auto Diff Today G40.909 - Epilepsy, unspecified, not intractable, without status epilepticus Referrals Neurology Referral G40.909 - Epilepsy, unspecified, not intractable, without status epilepticus Medications: New topiramate 1 tab q HS for 7 days and then 50 mg BID. 60 tabs 1RF 30 days Coding Level of Care Code Est Pt Level 4 (95983) Diagnoses Seizure disorder G40.909 Migraine G43.909
== END 2023-07-31 16:21 | disposition home or self-care (01) ==
PROVIDERS: Visit Provider Nurse Practitioner Family
DX: G40.909 Epilepsy, unspecified, not intractable, without status epilepticus (principal); G43.909 Migraine, unspecified, not intractable, without status migrainosus
CPT/HCPCS: 99214

== ENCOUNTER → 2023-07-31 15:18 | Outpatient (BNVA) | payer OTHER, SELFPAY | PROVIDERS: Visit Provider Nurse Practitioner Family | DX: G40.909 Epilepsy, unspecified, not intractable, without status epilepticus (principal); G43.909 Migraine, unspecified, not intractable, without status migrainosus | CPT/HCPCS: 99212 ==

== ENCOUNTER 2023-08-01 19:07 | Emergency (ER) | payer OTHER, SELFPAY ==
--- NOTE | 2023-08-01 | ECG_ITS ---
Test Reason : SEIZURE Blood Pressure : / mmHG Vent. Rate : 058 BPM Atrial Rate : 058 BPM P-R Int : 154 ms QRS Dur : 088 ms QT Int : 432 ms P-R-T Axes : 001 004 006 degrees QTc Int : 424 ms Sinus bradycardia Minimal voltage criteria for LVH, may be normal variant ( R in aVL ) Borderline ECG When compared with ECG of 29-NOV-2022 22:08, No significant change was found Referred By: Generic ED Physician Electronically Signed By:TAWANDA SALGUERO
[2023-08-01 19:19] VITALS: BP 127/88; BP 130/90; PULSE 73; PULSE 80; RESP 12; TEMP 36.5; O2SAT 97; O2SAT 98; BMI 28.0
[2023-08-01 19:33] VITALS: BP 113/79; PULSE 70; RESP 18; TEMP 36.5; O2SAT 98
[2023-08-01 19:47] LABS: Hematocrit 38.9 % (42.0-52.0); Hemoglobin 13.4 g/dl (14.0-18.0); Mean Corpuscular HGB Conc 34.4 g/dl (31.0-36.0); Mean Corpuscular Hemoglobin 28.4 pg (27.0-33.0); Mean Corpuscular Volume 82.4 fL (80.0-98.0); Mean Platelet Volume 9.7 fL (9.4-12.4); Platelet Count 341 X10*3/uL (160-400); Red Blood Count 4.72 X10*6/uL (4.60-5.80); Red Cell Distribution Width 12.4 % (11.0-16.0); White Blood Count 7.5 X10*3/uL (4.8-10.8)
[2023-08-01 19:54] LABS: Alanine Aminotransferase 40 U/L (0-40); Albumin Level 4.1 g/dL (3.5-5.0); Alkaline Phosphatase 105 U/L (39-117); Anion Gap 12 (12-20); Aspartate Amino Transferase 39 U/L (5-37); Bilirubin Total 0.3 mg/dL (0.0-1.0); Blood Urea Nitrogen 21 mg/dL (9-16); Carbon Dioxide 23 mmol/L (22-29); Chloride 106 mmol/L (96-108); Creatinine Clr Calc Pharmacy 113.4; Estimated Glomerular Filt Rate > 60; Glucose Random 100 mg/dL (60-115); Potassium 3.3 mmol/L (3.3-5.1); Sodium 138 mmol/L (135-145); Total Protein 7.4 g/dL (6.5-8.0)
--- NOTE | 2023-08-01 19:56 | ED.GENADULT ---
HPI - General Adult General Chief complaint: Seizure Stated complaint: unwitnessed seizure, alert and oriented Time Seen by Provider: 08/01/23 19:48 History of Present Illness HPI narrative: The patient is a 37-year-old male who reports a long time seizure history. He says that he has seizures almost daily. In the past he has been on levetiracetam, lamotrigine, phenytoin, and valproic acid. He was either allergic to these medications or had no benefit from them. He currently takes gabapentin 900 mg t.i.d.. He also takes sumatriptan to help with migraines. With the patient was brought to the hospital by ambulance after apparently having a seizure on the bus. He says that he had already taken his evening medications this evening. He says he was going to a friend's house by bus when he had a seizure and was brought here. He says he does not think that the seizure he had tonight was any different than any of his usual seizures. As it happens the patient was seen by Dr. Rodriguez at the Outpatient Neurology office here at [facility] yesterday afternoon. Dr. Rodriguez recommended a trial of topiramate as a new medication for his seizures. He has not yet picked up the prescription for this. The patient is not also surprised that he had a seizure today as he has seizures very frequently. He did not sustain any injury as result of the seizure. The patient is hoping that he will be able to have his seizures treated with RNS, Responsive Neurostimulation . This involves the implantation of the device under the scalp. He is hoping to be evaluated in [place] for this device. Related Data Home Medications Medication Instructions Recorded Confirmed albuterol sulfate 90 mcg/actuation 2 puff inhalation Q4-6H PRN 06/21/23 06/21/23 aerosol inhaler (Ventolin HFA) Shortness Of Breath Or Wheezing aripiprazole 15 mg tablet 15 mg PO DAILY 06/21/23 06/21/23 clonidine HCl 0.1 mg tablet 0.2 mg PO BEDTIME 06/21/23 06/21/23 gabapentin 300 mg capsule 300 mg PO TID 06/21/23 06/21/23 gabapentin 600 mg tablet 600 mg PO TID 06/21/23 06/21/23 hydroxyzine pamoate 50 mg capsule 50 - 100 mg PO BEDTIME PRN Anxiety 06/21/23 06/21/23 lisinopril 10 mg tablet 10 mg PO DAILY 06/21/23 06/21/23 nifedipine 30 mg tablet,extended 30 mg PO DAILY 06/21/23 06/21/23 release 24 hr sucralfate 1 gram tablet 1 g PO QID 06/21/23 06/21/23 tamsulosin 0.4 mg capsule 0.4 mg PO DAILY 06/21/23 06/21/23 Previous Rx's Medication Instructions Recorded ibuprofen 600 mg tablet 600 mg PO Q6H PRN fever or pain 07/02/23 #30 tabs ondansetron 4 mg disintegrating 4 mg PO Q6-8H PRN nausea and 07/02/23 tablet vomiting #7 tabs ondansetron 4 mg disintegrating 4 mg PO Q8H PRN nausea and 07/11/23 tablet vomiting #20 tabs sumatriptan succinate 50 mg tablet 50 mg PO Q2H PRN migraine headache 07/22/23 (Imitrex) 30 days #12 tabs topiramate 50 mg tablet See Rx Instructions PO BEDTIME 30 07/31/23 days #60 tabs Allergies Allergy/AdvReac Type Severity Reaction Status Date / Time amoxicillin Allergy Vomiting Verified 08/01/23 19:25 heparin Allergy Hives Verified 08/01/23 19:25 lamotrigine [From Lamictal] Allergy Hives Verified 08/01/23 19:25 levetiracetam [From Keppra] Allergy Hives Verified 08/01/23 19:25 Review of Systems Review of Systems: Yes all other systems are reviewed and are negative PMFSH Past Medical History Medical History Essential hypertension Sleep disorder Seizure disorder Back pain Neck pain PTSD (post-traumatic stress disorder) Seizure TBI (traumatic brain injury) Bipolar 1 disorder Surgical History Hx of hernia repair Family History Family History Mother Cancer Family/Other No problems noted. Father Heart problem Social History Social History Alcohol intake: never Patient Tobacco Use Status: Former Tobacco user Smoked in Last 30 Days: Yes Use of substances other than those prescribed or required for medical reasons: No Advance Directives: No Advance Directives Information Provided: No Physical Exam ED Vital Signs: Vital Signs - 24 hr 08/01/23 19:19 08/01/23 19:33 Temperature 97.7 F 97.7 F Pulse Rate 73 70 Respiratory Rate 12 18 Blood Pressure 127/88 113/79 Pulse Oximetry 98 98 Oxygen Delivery Method Room Air Room Air BMI result Body Mass Index 28.0 Const Other: The patient is awake and alert. Mental status is clear. He does not seem in acute distress. HENMT Other: The head is normocephalic and atraumatic. Mucous membranes are moist. Airway clear. Eyes Other: Pupils are round and equal, conjunctivae are clear, extraocular movements intact round equal, conjunctivae Neck Other: No C-spine tenderness. Moving his neck easily. No neck masses. Resp Other: Lungs are clear bilaterally. No respiratory distress. Cardio Other: Patient has a regular rate and rhythm with no murmur GI Other: Abdomen is soft and nontender Skin Other: No signs of trauma to the skin Neuro Other: The patient is awake and alert, oriented, appropriate. Face is symmetrical. Speech is at baseline. He moves all 4 extremities normally and appropriately. He seems to be at his neurological baseline. Extrem Other: No injuries to the extremities Medications Administered Discontinued Medications Generic Name Dose Route Start Last Admin Trade Name Freq PRN Reason Stop Dose Admin Topiramate 50 mg 08/01/23 19:56 08/01/23 20:22 Topiramate 25 Mg Tablet PO 08/01/23 19:57 50 mg ONCE ONE Administration Medical Decision Making Medical Decision Making [facility] Narrative: The patient is a 37-year-old male who reports a history of a seizure disorder. He says that he has almost daily seizures. Today he had a seizure in public and therefore an ambulance was called and he was brought to the hospital. The patient is on gabapentin. He saw a neurologist yesterday who prescribed topiramate. He has not yet started this medication. Here the patient did not appear obviously acutely ill. Labs are unremarkable. He was given 50 mg of oral topiramate and he was observed. He felt much better and was eager to go home. 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 He plans on doing this. Lab Data 08/01/23 19:32 08/01/23 19:32 Labs: Lab Results 08/01/23 Range/Units 19:32 WBC 7.5 (4.8-10.8) X10*3/uL RBC 4.72 (4.60-5.80) X10*6/uL Hgb 13.4 L (14.0-18.0) g/dl Hct 38.9 L (42.0-52.0) % MCV 82.4 (80.0-98.0) fL MCH 28.4 (27.0-33.0) pg MCHC 34.4 (31.0-36.0) g/dl RDW 12.4 (11.0-16.0) % Plt Count 341 (160-400) X10*3/uL MPV 9.7 (9.4-12.4) fL Absolute Nucleated RBC 0.000 (0.0-0.012) X10*3/uL Nucleated RBC % (auto) 0.0 (0.0-0.2) /100WBC Sodium 138 (135-145) mmol/L Potassium 3.3 (3.3-5.1) mmol/L Chloride 106 (96-108) mmol/L Carbon Dioxide 23 (22-29) mmol/L Anion Gap 12 (12-20) BUN 21 H (9-16) mg/dL Creatinine 0.80 (0.5-1.4) mg/dL Estim Creat Clear Calc 113.4 Estimated GFR > 60 Random Glucose 100 (60-115) mg/dL Calcium 9.0 (8.4-10.2) mg/dL Total Bilirubin 0.3 (0.0-1.0) mg/dL AST 39 H (5-37) U/L ALT 40 (0-40) U/L Alkaline Phosphatase 105 (39-117) U/L Total Protein 7.4 (6.5-8.0) g/dL Albumin 4.1 (3.5-5.0) g/dL Independent Interpretation I performed an independent interpretation of an: EKG Interpretation: EKG at 1950 shows sinus bradycardia 58 beats per minute. No other concerning findings. Discharge Plan Discharge Clinical Impression: Seizure, Seizure disorder Patient Disposition: Home, Self-Care Additional Instructions: You received a dose of topiramate this evening. My hope is that your new prescription will be available for you tomorrow. Please start this medication as soon as you are able to pick it up. Please follow-up with your regular doctors. Return to the emergency room if worse. Prescriptions: No Action sumatriptan succinate [Imitrex] 50 mg tablet 50 mg PO Q2H PRN (Reason: migraine headache) 30 Days Qty: 12 1RF Rx Instructions: do not exceed 2 doses per 24 hrs ibuprofen 600 mg tablet 600 mg PO Q6H PRN (Reason: fever or pain) Qty: 30 0RF ondansetron 4 mg tablet,disintegrating 4 mg PO Q6-8H PRN (Reason: nausea and vomiting) Qty: 7 0RF nifedipine 30 mg tablet extended release 24hr 30 mg PO DAILY clonidine HCl 0.1 mg tablet 0.2 mg PO BEDTIME sucralfate 1 gram tablet 1 g PO QID hydroxyzine pamoate 50 mg capsule 50 - 100 mg PO BEDTIME PRN (Reason: Anxiety) lisinopril 10 mg tablet 10 mg PO DAILY aripiprazole 15 mg tablet 15 mg PO DAILY gabapentin 600 mg tablet 600 mg PO TID tamsulosin 0.4 mg capsule 0.4 mg PO DAILY gabapentin 300 mg capsule 300 mg PO TID albuterol sulfate [Ventolin HFA] 90 mcg/actuation HFA aerosol inhaler 2 puff inhalation Q4-6H PRN (Reason: Shortness Of Breath Or Wheezing) ondansetron 4 mg tablet,disintegrating 4 mg PO Q8H PRN (Reason: nausea and vomiting) Qty: 20 0RF topiramate 50 mg tablet See Rx Instructions PO BEDTIME 30 Days Qty: 60 1RF Rx Instructions: 1 tab q HS for 7 days and then 50 mg BID. Referrals: Noemi Gonsales PA-C [Physician Big Machine Consultant] - (seizures) Kaylene Rodriguez CNP [Nurse Practitioner] - (seizures) Interventions: ED Discharge Assessment Last Done: 08/01/23 21:35 Discharge Date/Time: 08/01/23 21:36
--- NOTE | 2023-08-01 20:03 | PC.NURSE ---
Per EMS pt was getting off of the bus and had a seizure. Pt reports getting off the bus feeling lightheaded and confused and believes he had a seizure.Pt denies falling or hitting his head at all. Pt has known seizure history and is associated with [facility] neurology. Reports a recent med change, starting topirimate 50mg BID. Labs sent, seizure precautions in placr, pt report 90 headache.
[2023-08-01] MEDS: Topiramate 25 MG TABLET 50 MG PO (20:22)
== END 2023-08-01 21:36 | disposition home or self-care (01) ==
PROVIDERS: Emergency Provider Emergency Medicine
DX: G40.909 Epilepsy, unspecified, not intractable, without status epilepticus (principal); I10 Essential (primary) hypertension; Z87.820 Personal history of traumatic brain injury; Z79.899 Other long term (current) drug therapy
CPT/HCPCS: 36415; 80053; 85027; 93005; 99283; 99284

== ENCOUNTER → 2023-08-01 19:50 | Outpatient (BNV) | payer OTHER, SELFPAY | PROVIDERS: Emergency Provider Emergency Medicine; Visit Provider Internal Medicine | DX: R00.1 Bradycardia, unspecified (principal) | CPT/HCPCS: 93010 ==

== ENCOUNTER 2023-08-07 20:46 | Emergency (ER) | payer OTHER, SELFPAY ==
[2023-08-07 21:40] VITALS: BP 129/90; PULSE 105; RESP 18; TEMP 37.4; O2SAT 97; BMI 29.8
[2023-08-08 00:03] VITALS: BP 120/78; PULSE 96; RESP 16; TEMP 36.4; O2SAT 96
--- NOTE | 2023-08-08 01:05 | ED.URI ---
HPI - URI/Sore Throat General Chief Complaint: Upper Respiratory Symptoms Stated Complaint: flu symptoms Time Seen by Provider: 08/08/23 00:59 Source: patient Mode of arrival: ambulatory Limitations: no limitations History of Present Illness HPI Narrative: Patient comes to the emergency room complaining of 1 day of cough, subjective fever, chills, generalized malaise, no chest pain or shortness of breath. Related Data Home Medications Medication Instructions Recorded Confirmed albuterol sulfate 90 mcg/actuation 2 puff inhalation Q4-6H PRN 06/21/23 06/21/23 aerosol inhaler (Ventolin HFA) Shortness Of Breath Or Wheezing aripiprazole 15 mg tablet 15 mg PO DAILY 06/21/23 06/21/23 clonidine HCl 0.1 mg tablet 0.2 mg PO BEDTIME 06/21/23 06/21/23 gabapentin 300 mg capsule 300 mg PO TID 06/21/23 06/21/23 gabapentin 600 mg tablet 600 mg PO TID 06/21/23 06/21/23 hydroxyzine pamoate 50 mg capsule 50 - 100 mg PO BEDTIME PRN Anxiety 06/21/23 06/21/23 lisinopril 10 mg tablet 10 mg PO DAILY 06/21/23 06/21/23 nifedipine 30 mg tablet,extended 30 mg PO DAILY 06/21/23 06/21/23 release 24 hr sucralfate 1 gram tablet 1 g PO QID 06/21/23 06/21/23 tamsulosin 0.4 mg capsule 0.4 mg PO DAILY 06/21/23 06/21/23 Previous Rx's Medication Instructions Recorded ibuprofen 600 mg tablet 600 mg PO Q6H PRN fever or pain 07/02/23 #30 tabs ondansetron 4 mg disintegrating 4 mg PO Q6-8H PRN nausea and 07/02/23 tablet vomiting #7 tabs ondansetron 4 mg disintegrating 4 mg PO Q8H PRN nausea and 07/11/23 tablet vomiting #20 tabs sumatriptan succinate 50 mg tablet 50 mg PO Q2H PRN migraine headache 07/22/23 (Imitrex) 30 days #12 tabs topiramate 50 mg tablet See Rx Instructions PO BEDTIME 30 07/31/23 days #60 tabs albuterol sulfate 90 mcg/actuation 2 puff inhalation Q4-6H PRN 08/08/23 aerosol inhaler shortness of breath or wheezing #8.5 grams ibuprofen 600 mg tablet 600 mg PO Q6H PRN fever or pain 08/08/23 #20 tabs prednisone 50 mg tablet 50 mg PO DAILY #4 tabs 08/08/23 Allergies Allergy/AdvReac Type Severity Reaction Status Date / Time amoxicillin Allergy Vomiting Verified 08/01/23 19:25 heparin Allergy Hives Verified 08/01/23 19:25 lamotrigine [From Lamictal] Allergy Hives Verified 08/01/23 19:25 levetiracetam [From Keppra] Allergy Hives Verified 08/01/23 19:25 Review of Systems Review of Systems: Constitutional : No Weight loss, complaining of subjective fever, chills, fatigue and generalized malaise ENT/Mouth : No Hearing loss, No Ear Pain, No Nasal Congestion, No Sinus Pain, No Hoarseness, No sore throat, No Rhinorrhea, No Swallowing Difficulty Eyes: No Eye Pain, No Swelling, No Redness, No Foreign Body, No Discharge, No Vision Changes Cardiovascular : No Chest Pain, No SOB, No Dyspnea on Exertion, No Orthopnea, No Edema, No Palpitations Respiratory : Complaining of dry cough and intermittent wheezing No Smoke Exposure, No Dyspnea Gastrointestinal : No Nausea, No Vomiting, No Diarrhea, No Constipation, No abdominal Pain, No Hematochezia, No Melena Genitourinary : no irregular bleeding, No Dysuria, No Urinary Frequency, No Hematuria, No Urinary Incontinence, No Urgency, No Flank Pain, No Urinary Flow Changes, No Hesitancy Musculoskeletal : No joint pain, No Myalgias, No Joint Swelling Skin : No Skin Lesions, No rash Neuro : No Weakness, No Numbness, No Paresthesias, No Loss of Consciousness, No Dizziness, No Headache Psych : No Anxiety/Panic, No Depression, No SI/HI/AH/VH, No Social Issues, Heme/Lymph: No Bruising, No Bleeding,No Lymphadenopathy Endocrine : No Polyuria, No Polydipsia, No Temperature Intolerance PMFSH Past Medical History Onset Date is defined in the Problem List Problems that require an onset date and time if occurred within 24 hrs of arrival to the ED Aortic Dissection and Rupture; Neurologic impairment; Cardiopulmonary Arrest; Endotracheal Intubation; Insertion or Replacement of Mechanical Circulatory Assist Device Medical History Essential hypertension Sleep disorder Seizure disorder Back pain Neck pain PTSD (post-traumatic stress disorder) Seizure TBI (traumatic brain injury) Bipolar 1 disorder Surgical History Hx of hernia repair Family History Family History Mother Cancer Family/Other No problems noted. Father Heart problem Social History Social History Alcohol intake: never Patient Tobacco Use Status: Former Tobacco user Advance Directives: No Advance Directives Information Provided: No Physical Exam Vital Signs: Vital Signs: Last Vital Signs Temp 97.5 F 08/08/23 00:03 Pulse 96 08/08/23 00:03 Resp 16 08/08/23 00:03 BP 120/78 08/08/23 00:03 Pulse Ox 96 08/08/23 00:03 O2 Del Method Room Air 08/08/23 00:03 BMI result Body Mass Index 29.8 Const: Other: Appearance: Alert. Oriented X3. No acute distress. Eyes: Pupils equal, round and reactive to light. ENT: Pharynx normal. Neck: Normal inspection. Neck supple. No lymph nodes noted. No crepitus CVS: Normal heart rate and rhythm. Pulses normal. Normal S1 and S2 Respiratory: No respiratory distress. Breath sounds normal. No Wheezing. No rales Abdomen: Soft and nontender. No rigidity. No distention. Skin: Skin warm and dry. Normal skin color. Normal skin turgor. Extremities: No lower extremity edema. No Lacerations. No Rash Neuro: Oriented X 3. No motor deficit. No sensory deficit. Moving all extremities. No slurred speech. CN 2 through 12 grossly intact Psych: calm, cooperative, normal affect Medical Decision Making Medical Decision Making [facility] Narrative: -my interpretation of chest x-ray: No pneumonia -my interpretation of labs, positive for COVID -I discussed the above-mentioned with the patient. Patient takes several medications that would interact with paxlovid, therefore we will only treat symptomatically with Tylenol and Motrin. Differential Diagnosis Differential Diagnoses: The differential diagnosis associated with the presentation includes (Pneumonia, COVID, influenza) Lab Data [facility] Lab Attestation statement: I reviewed the patient's lab results. Labs: Lab Results 08/07/23 Range/Units 21:49 Influenza Type A (PCR) NEGATIVE (Negative) Influenza Type B (PCR) NEGATIVE (Negative) RSV RNA Qual (PCR) NEGATIVE (Negative) SARS-CoV-2 RNA (RT-PCR) POSITIVE A (Negative) Independent Interpretation I performed an independent interpretation of an: Plain X-Ray Radiology Impression Discussion of test interpretation with radiology: I have reviewed the radiologist's reading. Radiologist Impression: No focal consolidation. No pneumothorax. Trachea is midline. Cardiac mediastinal silhouette is not enlarged. No large pleural effusion. Osseous structures are intact. Soft tissues are unremarkable. XR/XR chest 2V IMPRESSION: No acute cardiopulmonary process. Discharge Plan Discharge Clinical Impression: COVID-19 Patient Disposition: Home, Self-Care Instructions: COVID-19 (Coronavirus Disease 2019) (ED) Additional Instructions: Please follow-up with your primary care physician tomorrow. If you have any worsening or new symptoms, please return to the emergency room or call 911 Prescriptions: New prednisone 50 mg tablet 50 mg PO DAILY Qty: 4 0RF albuterol sulfate 90 mcg/actuation HFA aerosol inhaler 2 puff inhalation Q4-6H PRN (Reason: shortness of breath or wheezing) Qty: 8.5 1RF ibuprofen 600 mg tablet 600 mg PO Q6H PRN (Reason: fever or pain) Qty: 20 0RF No Action sumatriptan succinate [Imitrex] 50 mg tablet 50 mg PO Q2H PRN (Reason: migraine headache) 30 Days Qty: 12 1RF Rx Instructions: do not exceed 2 doses per 24 hrs ibuprofen 600 mg tablet 600 mg PO Q6H PRN (Reason: fever or pain) Qty: 30 0RF ondansetron 4 mg tablet,disintegrating 4 mg PO Q6-8H PRN (Reason: nausea and vomiting) Qty: 7 0RF nifedipine 30 mg tablet extended release 24hr 30 mg PO DAILY clonidine HCl 0.1 mg tablet 0.2 mg PO BEDTIME sucralfate 1 gram tablet 1 g PO QID hydroxyzine pamoate 50 mg capsule 50 - 100 mg PO BEDTIME PRN (Reason: Anxiety) lisinopril 10 mg tablet 10 mg PO DAILY aripiprazole 15 mg tablet 15 mg PO DAILY gabapentin 600 mg tablet 600 mg PO TID tamsulosin 0.4 mg capsule 0.4 mg PO DAILY gabapentin 300 mg capsule 300 mg PO TID albuterol sulfate [Ventolin HFA] 90 mcg/actuation HFA aerosol inhaler 2 puff inhalation Q4-6H PRN (Reason: Shortness Of Breath Or Wheezing) ondansetron 4 mg tablet,disintegrating 4 mg PO Q8H PRN (Reason: nausea and vomiting) Qty: 20 0RF topiramate 50 mg tablet See Rx Instructions PO BEDTIME 30 Days Qty: 60 1RF Rx Instructions: 1 tab q HS for 7 days and then 50 mg BID.
== END 2023-08-08 01:46 | disposition home or self-care (01) ==
PROVIDERS: Emergency Provider Emergency Medicine
DX: U07.1 COVID-19 (principal); R05.9 Cough, unspecified
CPT/HCPCS: 0241U; 71046; 99282; 99283

== ENCOUNTER 2023-09-25 14:49 | Emergency (ER) | payer OTHER, SELFPAY ==
--- NOTE | ~2023-09-25 | XR_ITS ---
EXAMINATION: 1. RADIOGRAPHS RIGHT ANKLE 2. RADIOGRAPHS RIGHT FOOT CLINICAL INFORMATION: Pain after injury COMPARISON: None TECHNIQUE: 2 views of the right ankle and 3 views of the right foot were obtained. FINDINGS: Visualized portions of the distal tibia and fibula demonstrate no fracture. Ankle mortise is well-maintained. There is no localized soft tissue swelling of the ankle. No gross ankle joint effusion. Bones of the midfoot are well aligned. Subtle cortical irregularity involving the anterior talus best appreciated on lateral imaging, nonspecific. No tarsal, metatarsal or phalangeal fracture. Mild soft tissue swelling of the heel. XR/XR foot RT 2V IMPRESSION: 1. Mild soft tissue swelling of the heel. 2. Subtle cortical irregularity involving the anterior talus best appreciated on lateral imaging. This may represent a normal variant or degenerative changes, however, a nondisplaced fracture is not entirely excluded. Recommend correlation with point tenderness. Follow-up versus additional imaging can be obtained as clinically indicated.
--- NOTE | ~2023-09-25 | XR_ITS ---
EXAMINATION: 1. RADIOGRAPHS RIGHT ANKLE 2. RADIOGRAPHS RIGHT FOOT CLINICAL INFORMATION: Pain after injury COMPARISON: None TECHNIQUE: 2 views of the right ankle and 3 views of the right foot were obtained. FINDINGS: Visualized portions of the distal tibia and fibula demonstrate no fracture. Ankle mortise is well-maintained. There is no localized soft tissue swelling of the ankle. No gross ankle joint effusion. Bones of the midfoot are well aligned. Subtle cortical irregularity involving the anterior talus best appreciated on lateral imaging, nonspecific. No tarsal, metatarsal or phalangeal fracture. Mild soft tissue swelling of the heel. XR/XR ankle RT 2V IMPRESSION: 1. Mild soft tissue swelling of the heel. 2. Subtle cortical irregularity involving the anterior talus best appreciated on lateral imaging. This may represent a normal variant or degenerative changes, however, a nondisplaced fracture is not entirely excluded. Recommend correlation with point tenderness. Follow-up versus additional imaging can be obtained as clinically indicated.
[2023-09-25 14:57] VITALS: BP 160/110; PULSE 88
[2023-09-25 15:39] VITALS: BP 121/82; PULSE 90; RESP 18; TEMP 36.8; O2SAT 97; BMI 27.4
--- NOTE | 2023-09-25 15:41 | ED.LOWEXIN ---
HPI - Extremity Injury (Lower) General Chief Complaint: Extremity Injury, Lower Stated Complaint: ANKLE PAIN, SPRAINED PER EMS Time Seen by Provider: 09/25/23 17:28 Source: patient and RN notes reviewed Mode of arrival: ambulatory Limitations: no limitations History of Present Illness HPI Narrative: This is a 37-year-old male, with a history of TBI, seizure, bipolar 1 disorder, seizure disorder, and hypertension, presenting to the emergency department with complaints of right ankle and foot pain after inversion injury which occurred today. Patient states that he inverted his ankle on a step and immediately felt pain. He states that he has had difficult time bearing weight on his foot secondary to pain. Denies taking any medications at home to treat his current symptoms. Pain is relieved with ice. Denies any other complaints or concerns at this time. MD complaint: ankle injury and foot injury Onset (ago): day(s) Severity: mild Relieving factors: cold therapy and immobilization Exacerbating factors: weight bearing, movement and palpation Associated symptoms: swelling Other symptoms: none Related Data Home Medications Medication Instructions Recorded Confirmed albuterol sulfate 90 mcg/actuation 2 puff inhalation Q4-6H PRN 06/21/23 06/21/23 aerosol inhaler (Ventolin HFA) Shortness Of Breath Or Wheezing aripiprazole 15 mg tablet 15 mg PO DAILY 06/21/23 06/21/23 clonidine HCl 0.1 mg tablet 0.2 mg PO BEDTIME 06/21/23 06/21/23 gabapentin 300 mg capsule 300 mg PO TID 06/21/23 06/21/23 gabapentin 600 mg tablet 600 mg PO TID 06/21/23 06/21/23 hydroxyzine pamoate 50 mg capsule 50 - 100 mg PO BEDTIME PRN Anxiety 06/21/23 06/21/23 lisinopril 10 mg tablet 10 mg PO DAILY 06/21/23 06/21/23 nifedipine 30 mg tablet,extended 30 mg PO DAILY 06/21/23 06/21/23 release 24 hr sucralfate 1 gram tablet 1 g PO QID 06/21/23 06/21/23 tamsulosin 0.4 mg capsule 0.4 mg PO DAILY 06/21/23 06/21/23 Previous Rx's Medication Instructions Recorded ibuprofen 600 mg tablet 600 mg PO Q6H PRN fever or pain 07/02/23 #30 tabs ondansetron 4 mg disintegrating 4 mg PO Q6-8H PRN nausea and 07/02/23 tablet vomiting #7 tabs ondansetron 4 mg disintegrating 4 mg PO Q8H PRN nausea and 07/11/23 tablet vomiting #20 tabs sumatriptan succinate 50 mg tablet 50 mg PO Q2H PRN migraine headache 07/22/23 (Imitrex) 30 days #12 tabs albuterol sulfate 90 mcg/actuation 2 puff inhalation Q4-6H PRN 08/08/23 aerosol inhaler shortness of breath or wheezing #8.5 grams ibuprofen 600 mg tablet 600 mg PO Q6H PRN fever or pain 08/08/23 #20 tabs prednisone 50 mg tablet 50 mg PO DAILY #4 tabs 08/08/23 topiramate 50 mg tablet 50 mg PO BID 30 days #60 tabs 09/01/23 acetaminophen 500 mg tablet 500 mg PO Q6H PRN pain #30 tabs 09/25/23 (Tylenol Extra Strength) ibuprofen 600 mg tablet 600 mg PO Q6H PRN pain #30 tabs 09/25/23 Allergies Allergy/AdvReac Type Severity Reaction Status Date / Time amoxicillin Allergy Vomiting Verified 09/25/23 15:38 heparin Allergy Hives Verified 09/25/23 15:38 lamotrigine [From Lamictal] Allergy Hives Verified 09/25/23 15:38 levetiracetam [From Keppra] Allergy Hives Verified 09/25/23 15:38 Review of Systems Review of Systems: Yes all other systems are reviewed and are negative PMFSH Past Medical History Attestation statement: The following information was validated with the patient. Medical History Essential hypertension Sleep disorder Seizure disorder Back pain Neck pain PTSD (post-traumatic stress disorder) Seizure TBI (traumatic brain injury) Bipolar 1 disorder Surgical History Hx of hernia repair Family History Family History Mother Cancer Family/Other No problems noted. Father Heart problem Social History Social History Alcohol intake: never Patient Tobacco Use Status: Former Tobacco user Advance Directives: No Advance Directives Information Provided: No Physical Exam Vital Signs: Vital Signs: Last Vital Signs Temp 97.6 F 09/25/23 17:33 Pulse 76 09/25/23 17:33 Resp 16 09/25/23 17:33 BP 132/96 H 09/25/23 17:33 Pulse Ox 98 09/25/23 17:33 O2 Del Method Room Air 09/25/23 17:33 BMI result Body Mass Index 27.4 Const: Other: General: Awake, alert, and oriented X3. No acute distress. HEENT: Normal inspection CVS: Normal heart rate and rhythm. Pulses normal. Respiratory: No respiratory distress Skin: Warm, dry, no rashes noted to exposed skin. Normal skin color. Normal skin turgor. Extremities: Right ankle with tenderness palpation along the dorsum of the right foot, overlying the 3rd and 4th tarsal head/talus region with edema noted, exquisitely tender to palpation. DP pulse 2 +, no open wounds Neuro: Oriented X 3. No motor deficit. No sensory deficit. Course Course Course Narrative: This is a rapid medical exam. Deferred additional HPI, ROS, PE to primary provider. 37 yo male here with right foot/ankle pain after an injury. Will check x-rays VSS Medical Decision Making Medical Decision Making MDM Narrative: This is a 37-year-old male presenting to the emergency department for evaluation of right foot and ankle pain status post inversion injury which occurred earlier this morning. On arrival, vital signs within normal limits. Patient has tenderness palpation along the right talus with surrounding edema, x-rays were obtained revealing a subtle cortical irregularity involving the anterior talus best appreciated on lateral images. Given patient has tenderness palpation in this region, fractures suspected. I discussed this finding with patient, place patient in posterior short-leg splint. And given crutches. Discharged on ibuprofen and Tylenol. Given orthopedic referral. Patient understands agrees with plan. Patient stable for discharge Differential Diagnosis Differential Diagnoses: The differential diagnosis associated with the presentation includes Talar fracture, sprain, strain, ligamentous injury Independent Interpretation I performed an independent interpretation of an: Plain X-Ray Radiology Impression Discussion of test interpretation with radiology: I have reviewed the radiologist's reading. Radiologist Impression: CLINICAL INFORMATION: Pain after injury COMPARISON: None TECHNIQUE: 2 views of the right ankle and 3 views of the right foot were obtained. FINDINGS: Visualized portions of the distal tibia and fibula demonstrate no fracture. Ankle mortise is well-maintained. There is no localized soft tissue swelling of the ankle. No gross ankle joint effusion. Bones of the midfoot are well aligned. Subtle cortical irregularity involving the anterior talus best appreciated on lateral imaging, nonspecific. No tarsal, metatarsal or phalangeal fracture. Mild soft tissue swelling of the heel. XR/XR foot RT 2V IMPRESSION: 1. Mild soft tissue swelling of the heel. 2. Subtle cortical irregularity involving the anterior talus best appreciated on lateral imaging. This may represent a normal variant or degenerative changes, however, a nondisplaced fracture is not entirely excluded. Recommend correlation with point tenderness. Follow-up versus additional imaging can be obtained as clinically indicated. Dictated By: Joesph Laguna MD Discharge Plan Discharge Clinical Impression: Talar fracture Patient Disposition: Home, Self-Care Instructions: Foot Fracture in Adults (ED) Additional Instructions: Your seen in the emergency department after rolling your ankle. You have a broken bone in your foot. Please wear splint until you follow-up with Orthopedics. Call tomorrow to make an appointment. Use crutches when ambulating. Do not weight bear on your foot. Do not get splint wet. Alternate between Tylenol and Motrin as needed for pain and symptoms. If any new or worsening symptoms occur including but not limited to worsening pain, numbness and tingling into your toes, changes in coloration of your toes, please return for re-evaluation. Prescriptions: New ibuprofen 600 mg tablet 600 mg PO Q6H PRN (Reason: pain) Qty: 30 0RF acetaminophen [Tylenol Extra Strength] 500 mg tablet 500 mg PO Q6H PRN (Reason: pain) Qty: 30 0RF No Action sumatriptan succinate [Imitrex] 50 mg tablet 50 mg PO Q2H PRN (Reason: migraine headache) 30 Days Qty: 12 1RF Rx Instructions: do not exceed 2 doses per 24 hrs topiramate 50 mg tablet 50 mg PO BID 30 Days Qty: 60 3RF ibuprofen 600 mg tablet 600 mg PO Q6H PRN (Reason: fever or pain) Qty: 30 0RF ondansetron 4 mg tablet,disintegrating 4 mg PO Q6-8H PRN (Reason: nausea and vomiting) Qty: 7 0RF nifedipine 30 mg tablet extended release 24hr 30 mg PO DAILY clonidine HCl 0.1 mg tablet 0.2 mg PO BEDTIME sucralfate 1 gram tablet 1 g PO QID hydroxyzine pamoate 50 mg capsule 50 - 100 mg PO BEDTIME PRN (Reason: Anxiety) lisinopril 10 mg tablet 10 mg PO DAILY aripiprazole 15 mg tablet 15 mg PO DAILY gabapentin 600 mg tablet 600 mg PO TID tamsulosin 0.4 mg capsule 0.4 mg PO DAILY gabapentin 300 mg capsule 300 mg PO TID albuterol sulfate [Ventolin HFA] 90 mcg/actuation HFA aerosol inhaler 2 puff inhalation Q4-6H PRN (Reason: Shortness Of Breath Or Wheezing) ondansetron 4 mg tablet,disintegrating 4 mg PO Q8H PRN (Reason: nausea and vomiting) Qty: 20 0RF prednisone 50 mg tablet 50 mg PO DAILY Qty: 4 0RF albuterol sulfate 90 mcg/actuation HFA aerosol inhaler 2 puff inhalation Q4-6H PRN (Reason: shortness of breath or wheezing) Qty: 8.5 1RF ibuprofen 600 mg tablet 600 mg PO Q6H PRN (Reason: fever or pain) Qty: 20 0RF Referrals: [facility] [place] Orthopedic Surgeons [Provider Group]
[2023-09-25 17:33] VITALS: BP 132/96; PULSE 76; RESP 16; TEMP 36.4; O2SAT 98
[2023-09-25 20:19] VITALS: BP 132/78; PULSE 78; RESP 20; TEMP 36.6; O2SAT 98
--- NOTE | 2023-09-25 20:26 | PC.NURSE ---
Awaiting EMS transfer home. ETA 1 hour.
== END 2023-09-25 21:44 | disposition home or self-care (01) ==
PROVIDERS: Emergency Provider Emergency Medicine
DX: S92.101A Unspecified fracture of right talus, initial encounter for closed fracture (principal); S93.401A Sprain of unspecified ligament of right ankle, initial encounter; M25.471 Effusion, right ankle; X50.1XXA Overexertion from prolonged static or awkward postures, initial encounter; Y93.9 Activity, unspecified; Y92.9 Unspecified place or not applicable; Y99.8 Other external cause status; Z79.899 Other long term (current) drug therapy
CPT/HCPCS: 73600; 73620; 99282; 99283

== ENCOUNTER 2023-09-26 13:03 | Emergency (ER) | payer OTHER, SELFPAY ==
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
[2023-09-26 13:08] VITALS: BP 149/105; PULSE 102; O2SAT 97
[2023-09-26 13:12] VITALS: BP 135/78; PULSE 86; RESP 18; TEMP 37; O2SAT 95; BMI 29.2
--- NOTE | 2023-09-26 15:18 | ED_ITS ---
HPI - Fall General Chief Complaint: Fall Stated Complaint: head injury Time Seen by Provider: 09/26/23 15:09 Source: patient and RN notes reviewed Mode of arrival: ambulatory Limitations: no limitations History of Present Illness HPI Narrative: This is a 37-year-old male, with a history of TBI, seizure, bipolar 1 disorder, seizure disorder, and hypertension, presenting to the emergency department with complaints of worsening right ankle and foot pain and headache status post fall out of bed prior to arrival. Patient was seen here yesterday and was diagnosed with a talar fracture and was placed in a posterior splint. Patient states that while he was getting out of bed he tripped over his foot and landed face 1st onto the ground. He is unsure if he lost consciousness. He reports a headache. He also reports worsening right foot and ankle pain. He states that he heard a pop in his right foot. Denies dizziness, lightheadedness, chest pain, shortness of breath, abdominal pain, nausea, vomiting or diarrhea No other complaints or concerns at this time. Related Data Home Medications Medication Instructions Recorded Confirmed albuterol sulfate 90 mcg/actuation 2 puff inhalation Q4-6H PRN 06/21/23 06/21/23 aerosol inhaler (Ventolin HFA) Shortness Of Breath Or Wheezing aripiprazole 15 mg tablet 15 mg PO DAILY 06/21/23 06/21/23 clonidine HCl 0.1 mg tablet 0.2 mg PO BEDTIME 06/21/23 06/21/23 gabapentin 300 mg capsule 300 mg PO TID 06/21/23 06/21/23 gabapentin 600 mg tablet 600 mg PO TID 06/21/23 06/21/23 hydroxyzine pamoate 50 mg capsule 50 - 100 mg PO BEDTIME PRN Anxiety 06/21/23 06/21/23 lisinopril 10 mg tablet 10 mg PO DAILY 06/21/23 06/21/23 nifedipine 30 mg tablet,extended 30 mg PO DAILY 06/21/23 06/21/23 release 24 hr sucralfate 1 gram tablet 1 g PO QID 06/21/23 06/21/23 tamsulosin 0.4 mg capsule 0.4 mg PO DAILY 06/21/23 06/21/23 Previous Rx's Medication Instructions Recorded ibuprofen 600 mg tablet 600 mg PO Q6H PRN fever or pain 11/29/23 #30 tabs ondansetron 4 mg disintegrating 4 mg PO Q6-8H PRN nausea and 07/02/23 tablet vomiting #7 tabs ondansetron 4 mg disintegrating 4 mg PO Q8H PRN nausea and 07/11/23 tablet vomiting #20 tabs sumatriptan succinate 50 mg tablet 50 mg PO Q2H PRN migraine headache 07/22/23 (Imitrex) 30 days #12 tabs albuterol sulfate 90 mcg/actuation 2 puff inhalation Q4-6H PRN 08/08/23 aerosol inhaler shortness of breath or wheezing #8.5 grams ibuprofen 600 mg tablet 600 mg PO Q6H PRN fever or pain 08/08/23 #20 tabs prednisone 50 mg tablet 50 mg PO DAILY #4 tabs 08/08/23 topiramate 50 mg tablet 50 mg PO BID 30 days #60 tabs 09/01/23 acetaminophen 500 mg tablet 500 mg PO Q6H PRN pain #30 tabs 09/25/23 (Tylenol Extra Strength) ibuprofen 600 mg tablet 600 mg PO Q6H PRN pain #30 tabs 09/25/23 Allergies Allergy/AdvReac Type Severity Reaction Status Date / Time amoxicillin Allergy Vomiting Verified 09/25/23 15:38 heparin Allergy Hives Verified 09/25/23 15:38 lamotrigine [From Lamictal] Allergy Hives Verified 09/25/23 15:38 levetiracetam [From Keppra] Allergy Hives Verified 09/25/23 15:38 PMFSH Past Medical History Medical History Essential hypertension Sleep disorder Seizure disorder Back pain Neck pain PTSD (post-traumatic stress disorder) Seizure TBI (traumatic brain injury) Bipolar 1 disorder Surgical History Hx of hernia repair Family History Family History Mother Cancer Family/Other No problems noted. Father Heart problem Social History Social History Alcohol intake: never Patient Tobacco Use Status: Former Tobacco user Advance Directives: No Advance Directives Information Provided: No Physical Exam Vital Signs: Vital Signs: Last Vital Signs Temp 98.6 F 09/26/23 13:12 Pulse 86 09/26/23 13:12 Resp 18 09/26/23 13:12 BP 135/78 09/26/23 13:12 Pulse Ox 95 09/26/23 13:12 O2 Del Method Room Air 09/26/23 13:12 BMI result Body Mass Index 29.2 Procedures Orthopedic Splinting/Casting Injury #1: Side: right Lower Extremity Injury Location: lower leg Lower Extremity Immobilizer: posterior splint Other Orthopedic Equipment: crutches (Patient presented with crutches given to him yesterday) Medical Decision Making Medical Decision Making MDM Narrative: This is a 37-year-old male, with a history of TBI, who presents to the emergency department status post mechanical fall which occurred just prior to arrival. On arrival, vital signs within normal limits. Patient states that he fell out of bed, tripped over his feet as 1 of his legs is in a posterior splint secondary to a talar fracture diagnosed yesterday. Patient endorsing headache, denies loss of consciousness. Patient has slight abrasion noted to his left eyebrow, not requiring any wound closure. Given head strike, CT head and C-spine was obtained, unremarkable for any acute pathology. Right ankle and right foot show no new fracture, consistent with talar fracture seen on previous x-rays that were performed yesterday. Patient's splint that was placed yesterday appears to be mangled, patient placed in a new splint. He has an appointment with orthopedics next week. He denies any questions or concerns, eager for discharge. He is neurologically intact. Patient stable for discharge Differential Diagnosis Differential Diagnoses: The differential diagnosis associated with the presentation includes Ankle sprain, contusion, fracture, ICH, subdural hematoma, laceration, abrasion Radiology Impression Discussion of test interpretation with radiology: I have reviewed the radiologist's reading. Radiologist Impression: EXAMINATION: CT brain, CT cervical spine without contrast. Right foot and Right ankle.. CLINICAL HISTORY: History of talar fracture with injury. Head strike COMPARISON: Right foot and right ankle 09/25/2023. TECHNIQUE: Right foot 3 views. Right ankle 2 views. 3 mm thin axial and reformatted 2 mm thin sagittal and axial coronal images of brain were obtained. Axial 5 mm thin and reformatted 2 mm thin axial and sagittal images of brain were obtained. DLP 913. This CT examination was performed using dose optimization technique as appropriate, variously including the following: Automated exposure control Adjustment of MA and/or KV according to patient size(this includes techniques or standardized protocols for targeted exams where dose is matched to indication/reason for exam; extremities or head. Use of iterative reconstruction techniques. FINDINGS: RIGHT ANKLE: Again visualized is a small bone fragment along the anterior superior nonarticular talus similar previous study likely injury as described on yesterday's exam. There is no new fracture seen. A small calcaneal heel enthesophyte is seen. Ankle mortise and subtalar joints are normal. The soft tissues are normal. RIGHT FOOT: Visualized metatarsals, phalanges of all digits are normal. The joint spaces are maintained normal. No fracture or dislocation seen. The soft tissues are normal. BRAIN: There is no acute intra-axial, extra-axial bleed, masses or midline shift. There is no acute infarction evolution. There is no edema. The lateral ventricles are symmetrical in size and configuration without enlargement. No abnormality seen in the posterior fossa. Bone windows reveal no calvarial abnormality. Bilateral paranasal sinuses and mastoid air cells are well-aerated. No scalp soft tissue abnormality seen. CERVICAL SPINE: There is mild straightening of cervical lordosis. The vertebral heights, alignment and disc heights are normal. There is mild hypertrophic changes at C1-C2 alignment. The craniovertebral junction is normal. No visible acute fracture, dislocation or subluxation seen. No bony erosive changes. The prevertebral and paravertebral soft tissues are normal. Mild degenerative changes left TM joint is noted. The right TM joint is unremarkable. The airways widely patent. The lung apices are clear XR/XR foot RT min 3V IMPRESSION: 1. No acute intracranial process seen. 2. There is mild straightening of cervical lordosis likely spasm or positional. No visible acute fracture or dislocation seen. 3. Mild degenerative changes left TM joint. 4. There is small avulsion fracture dorsal and anterior talus similar to previous study from yesterday. No new fracture seen. Ankle mortise and subtalar joints are normal. No new fracture seen in the foot either. Dictated By: Amador Moran MD Discharge Plan Discharge Clinical Impression: Closed head injury, Talar fracture Patient Disposition: Home, Self-Care Instructions: Talar Fracture in Adults (ED), Head Injury (ED) Additional Instructions: Your seen in the emergency department after falling out of bed. A CT scan of your head did not show any abnormalities. Your left ankle and foot x-rays were similar to the ones you had yesterday Please wear splint until you follow-up with Orthopedics. Call tomorrow to make an appointment. Use crutches when ambulating. Do not weight bear on your foot. Do not get splint wet. Alternate between Tylenol and Motrin as needed for pain and symptoms. If any new or worsening symptoms occur including but not limited to worsening pain, numbness and tingling into your toes, changes in coloration of your toes, please return for re-evaluation Prescriptions: No Action sumatriptan succinate [Imitrex] 50 mg tablet 50 mg PO Q2H PRN (Reason: migraine headache) 30 Days Qty: 12 1RF Rx Instructions: do not exceed 2 doses per 24 hrs topiramate 50 mg tablet 50 mg PO BID 30 Days Qty: 60 3RF ibuprofen 600 mg tablet 600 mg PO Q6H PRN (Reason: fever or pain) Qty: 30 0RF ondansetron 4 mg tablet,disintegrating 4 mg PO Q6-8H PRN (Reason: nausea and vomiting) Qty: 7 0RF nifedipine 30 mg tablet extended release 24hr 30 mg PO DAILY clonidine HCl 0.1 mg tablet 0.2 mg PO BEDTIME sucralfate 1 gram tablet 1 g PO QID hydroxyzine pamoate 50 mg capsule 50 - 100 mg PO BEDTIME PRN (Reason: Anxiety) lisinopril 10 mg tablet 10 mg PO DAILY aripiprazole 15 mg tablet 15 mg PO DAILY gabapentin 600 mg tablet 600 mg PO TID tamsulosin 0.4 mg capsule 0.4 mg PO DAILY gabapentin 300 mg capsule 300 mg PO TID albuterol sulfate [Ventolin HFA] 90 mcg/actuation HFA aerosol inhaler 2 puff inhalation Q4-6H PRN (Reason: Shortness Of Breath Or Wheezing) ondansetron 4 mg tablet,disintegrating 4 mg PO Q8H PRN (Reason: nausea and vomiting) Qty: 20 0RF prednisone 50 mg tablet 50 mg PO DAILY Qty: 4 0RF albuterol sulfate 90 mcg/actuation HFA aerosol inhaler 2 puff inhalation Q4-6H PRN (Reason: shortness of breath or wheezing) Qty: 8.5 1RF ibuprofen 600 mg tablet 600 mg PO Q6H PRN (Reason: fever or pain) Qty: 20 0RF ibuprofen 600 mg tablet 600 mg PO Q6H PRN (Reason: pain) Qty: 30 0RF acetaminophen [Tylenol Extra Strength] 500 mg tablet 500 mg PO Q6H PRN (Reason: pain) Qty: 30 0RF Referrals: [facility] [place] Orthopedic Surgeons [Provider Group] Interventions: ED Discharge Assessment Last Done: 09/26/23 16:18 Discharge Date/Time: 09/26/23 16:19
== END 2023-09-26 16:19 | disposition home or self-care (01) ==
PROVIDERS: Emergency Provider Emergency Medicine
DX: S09.90XA Unspecified injury of head, initial encounter (principal); S92.151A Displaced avulsion fracture (chip fracture) of right talus, initial encounter for closed fracture; W06.XXXA Fall from bed, initial encounter; Y93.89 Activity, other specified; Y92.9 Unspecified place or not applicable; Y99.9 Unspecified external cause status; R51.9 Headache, unspecified; G40.909 Epilepsy, unspecified, not intractable, without status epilepticus; I10 Essential (primary) hypertension; M25.571 Pain in right ankle and joints of right foot; M79.671 Pain in right foot
CPT/HCPCS: 70450; 72125; 73610; 73630; 99282; 99284

== ENCOUNTER 2023-10-10 10:55 | Emergency (ER) | payer OTHER, SELFPAY ==
--- NOTE | ~2023-10-10 | XR_ITS ---
EXAMINATION: XR CHEST CLINICAL INFORMATION: Chest pain COMPARISON: 08/07/2023 TECHNIQUE: Frontal view of the chest was obtained. FINDINGS: No significant abnormality is noted involving the heart, lungs, mediastinum, bony thorax or soft tissues. XR/XR chest 1V IMPRESSION: Unremarkable examination.
[2023-10-10 11:06] VITALS: BP 120/82; PULSE 68; O2SAT 97; BMI 24.3
[2023-10-10 11:09] VITALS: BP 116/83; PULSE 73; RESP 14; TEMP 36.7; O2SAT 96
--- NOTE | 2023-10-10 11:09 | ECG_ITS ---
Test Reason : CHEST PAIN Blood Pressure : / mmHG Vent. Rate : 058 BPM Atrial Rate : 058 BPM P-R Int : 154 ms QRS Dur : 092 ms QT Int : 414 ms P-R-T Axes : 009 024 026 degrees QTc Int : 406 ms Sinus bradycardia with marked sinus arrhythmia Otherwise normal ECG When compared with ECG of 01-AUG-2023 19:50, No significant change was found Referred By: Paul Doyle Electronically Signed By:Kerwin Lynn
--- NOTE | 2023-10-10 11:12 | ED.CHESTPAIN ---
HPI - Chest Pain General Chief Complaint: Chest Pain Stated Complaint: CHEST PAIN Time Seen by Provider: 10/10/23 11:00 Source: patient Mode of arrival: EMS History of Present Illness HPI narrative: This is 37 years old male presented to emergency department with a chief complaint of chest pain. He was brought here by ambulance he states that his pain is pleuritic worse when he take a deep breath. He was given aspirin and nitroglycerin in by ambulance. Patient has history of seizure disorder, bipolar disorder, TBI. MD complaint: chest pain Onset (ago): hour(s) (2) Timing of current episode: other (Decreasing) Onset: during rest Pain location: substernal Pain radiation: none Severity: mild Quality: aching Relieving factors: nothing Exacerbating factors: nothing Context: recent illness Risk Factors Coronary artery disease risk factors: none Thoracic aortic dissection risk factors: none Related Data Home Medications Medication Instructions Recorded Confirmed albuterol sulfate 90 mcg/actuation 2 puff inhalation Q4-6H PRN 06/21/23 06/21/23 aerosol inhaler (Ventolin HFA) Shortness Of Breath Or Wheezing aripiprazole 15 mg tablet 15 mg PO DAILY 06/21/23 06/21/23 clonidine HCl 0.1 mg tablet 0.2 mg PO BEDTIME 06/21/23 06/21/23 gabapentin 300 mg capsule 300 mg PO TID 06/21/23 06/21/23 gabapentin 600 mg tablet 600 mg PO TID 06/21/23 06/21/23 hydroxyzine pamoate 50 mg capsule 50 - 100 mg PO BEDTIME PRN Anxiety 06/21/23 06/21/23 lisinopril 10 mg tablet 10 mg PO DAILY 06/21/23 06/21/23 nifedipine 30 mg tablet,extended 30 mg PO DAILY 06/21/23 06/21/23 release 24 hr sucralfate 1 gram tablet 1 g PO QID 06/21/23 06/21/23 tamsulosin 0.4 mg capsule 0.4 mg PO DAILY 06/21/23 06/21/23 Previous Rx's Medication Instructions Recorded ibuprofen 600 mg tablet 600 mg PO Q6H PRN fever or pain 07/02/23 #30 tabs ondansetron 4 mg disintegrating 4 mg PO Q6-8H PRN nausea and 07/02/23 tablet vomiting #7 tabs ondansetron 4 mg disintegrating 4 mg PO Q8H PRN nausea and 07/11/23 tablet vomiting #20 tabs sumatriptan succinate 50 mg tablet 50 mg PO Q2H PRN migraine headache 07/22/23 (Imitrex) 30 days #12 tabs albuterol sulfate 90 mcg/actuation 2 puff inhalation Q4-6H PRN 08/08/23 aerosol inhaler shortness of breath or wheezing #8.5 grams ibuprofen 600 mg tablet 600 mg PO Q6H PRN fever or pain 08/08/23 #20 tabs prednisone 50 mg tablet 50 mg PO DAILY #4 tabs 08/08/23 topiramate 50 mg tablet 50 mg PO BID 30 days #60 tabs 09/01/23 acetaminophen 500 mg tablet 500 mg PO Q6H PRN pain #30 tabs 09/25/23 (Tylenol Extra Strength) ibuprofen 600 mg tablet 600 mg PO Q6H PRN pain #30 tabs 09/25/23 Allergies Allergy/AdvReac Type Severity Reaction Status Date / Time amoxicillin Allergy Vomiting Verified 10/10/23 11:06 heparin Allergy Hives Verified 10/10/23 11:06 lamotrigine [From Lamictal] Allergy Hives Verified 10/10/23 11:06 levetiracetam [From Keppra] Allergy Hives Verified 10/10/23 11:06 Review of Systems Constitutional: Constitutional: Reports no additional constitutional complaints Cardiovascular: Cardiovascular: Reports chest pain PMFSH Past Medical History Attestation statement: The following information was validated with the patient. Medical History Essential hypertension Sleep disorder Seizure disorder Back pain Neck pain PTSD (post-traumatic stress disorder) Seizure TBI (traumatic brain injury) Bipolar 1 disorder Surgical History Hx of hernia repair Family History Family History Mother Cancer Family/Other No problems noted. Father Heart problem Social History Social History Alcohol intake: never Patient Tobacco Use Status: Former Tobacco user Smoked in Last 30 Days: No Use of substances other than those prescribed or required for medical reasons: No Advance Directives: No Advance Directives Information Provided: Yes Physical Exam Vital Signs: Vital Signs: Last Vital Signs Temp 98.0 F 10/10/23 11:09 Pulse 60 10/10/23 14:18 Resp 15 10/10/23 14:18 BP 124/91 H 10/10/23 14:18 Pulse Ox 98 10/10/23 14:18 O2 Del Method Room Air 10/10/23 14:18 BMI result Body Mass Index 24.3 Const: General: cooperative Nutritional Appearance: average body habitus Orientation/consciousness: patient oriented x3 Limitations: no limitations HEENT: Head: Yes normal to inspection Ears: hearing grossly normal bilaterally Face and sinus: Yes normal facial exam Mouth: Normal oral and palatal mucosa present Throat: Yes posterior oropharynx normal Neck: Neck: Yes normal visual inspection Chest: Chest palpation & inspection: normal inspection of the chest Resp: Effort & Inspection: normal respiratory effort Auscultation: clear to auscultation bilaterally Cardio: Jugular venous distension: no JVD Rate: regular rate Rhythm: regular rhythm GI: Inspection: Yes normal to inspection Palpation (GI): Soft to palpation, not firm and nontender Skin: General skin exam: no rashes or lesions noted Lesions: no lesions Rashes: no rashes Neuro: General: patient oriented x3 Cranial nerves: Yes CN's II-XII intact bilaterally Course Reevaluation(s) Reevaluation #1: Pain-free now workup negative Time: 15:12 Medical Decision Making Medical Decision Making [facility] Narrative: Patient presented with a chief complaint of chest pain will get EKG chest x-ray and reassessed Differential Diagnosis Differential Diagnoses: The differential diagnosis associated with the presentation includes ACS/pneumothorax musculoskeletal Admission/Observation Consideration of admission/observation: Escalation of care including admission/observation considered Lab Data [facility] Lab Attestation statement: I reviewed the patient's lab results. 10/10/23 11:15 10/10/23 12:07 Labs: Lab Results 10/10/23 10/10/23 Range/Units 11:15 12:07 WBC 8.4 (4.8-10.8) X10*3/uL RBC 4.89 (4.60-5.80) X10*6/uL Hgb 13.9 L (14.0-18.0) g/dl Hct 41.5 L (42.0-52.0) % MCV 84.9 (80.0-98.0) fL MCH 28.4 (27.0-33.0) pg MCHC 33.5 (31.0-36.0) g/dl RDW 13.6 (11.0-16.0) % Plt Count 304 (160-400) X10*3/uL MPV 10.3 (9.4-12.4) fL Immature Gran % (Auto) 0.2 (0.0-0.4) % Neut % (Auto) 63.0 (45-73) % Lymph % (Auto) 24.3 (20-40) % [place] % (Auto) 8.0 (2-11) % Eos % (Auto) 3.7 (0-4) % Baso % (Auto) 0.8 (0-2) % Lymph # (Auto) 2.0 (1.2-4.9) X10*3/uL [place] # (Auto) 0.7 (0.1-1.2) X10*3/uL Eos # (Auto) 0.3 (0.0-0.4) X10*3/uL Baso # (Auto) 0.1 (0.0-0.2) X10*3/uL Abs Immat Gran (auto) 0.02 (0.00-0.03) X10*3/uL Absolute Neuts (auto) 5.3 (2.0-8.3) x10*3/uL Absolute Nucleated RBC 0.000 (0.0-0.012) X10*3/uL Nucleated RBC % (auto) 0.0 (0.0-0.2) /100WBC D-Dimer High Sensitivty < 150 NG/ML Sodium 137 (135-145) mmol/L Potassium 3.4 (3.3-5.1) mmol/L Chloride 107 (96-108) mmol/L Carbon Dioxide 25 (22-29) mmol/L Anion Gap 8 L (12-20) BUN 12 (9-16) mg/dL Creatinine 0.73 (0.5-1.4) mg/dL Estim Creat Clear Calc 135.3 Estimated GFR > 60 Random Glucose 104 (60-115) mg/dL Calcium 8.7 (8.4-10.2) mg/dL Total Bilirubin 0.5 (0.0-1.0) mg/dL AST 34 (5-37) U/L ALT 32 (0-40) U/L Alkaline Phosphatase 106 (39-117) U/L Troponin I High Sens < 2.7 (<3.5-35.0) ng/L Total Protein 7.1 (6.5-8.0) g/dL Albumin 3.9 (3.5-5.0) g/dL Independent Interpretation I performed an independent interpretation of an: EKG and Plain X-Ray Interpretation: Normal sinus rhythm rate 58 no ischemic changes the electrocardiogram was personally interpreted by me Radiology Impression Discussion of test interpretation with radiology: I have reviewed the radiologist's reading. Radiologist Impression: Accession Number(s): [id number] cc: Paul Doyle MD; Physician,Unknown ~ EXAMINATION: XR CHEST CLINICAL INFORMATION: Chest pain COMPARISON: 08/07/2023 TECHNIQUE: Frontal view of the chest was obtained. FINDINGS: No significant abnormality is noted involving the heart, lungs, mediastinum, bony thorax or soft tissues. XR/XR chest 1V IMPRESSION: Unremarkable examination. Dictated By: Fabby Nguyen Independent Historian Clinical information obtained from an independent historian. History obtained from or confirmed by: EMS Discharge Plan Discharge Clinical Impression: Chest pain Qualifiers: Chest pain type: chest pain on breathing Qualified Code(s): R07.1 - Chest pain on breathing Patient Disposition: Home, Self-Care Instructions: Chest Pain (DC) Prescriptions: No Action sumatriptan succinate [Imitrex] 50 mg tablet 50 mg PO Q2H PRN (Reason: migraine headache) 30 Days Qty: 12 1RF Rx Instructions: do not exceed 2 doses per 24 hrs topiramate 50 mg tablet 50 mg PO BID 30 Days Qty: 60 3RF ibuprofen 600 mg tablet 600 mg PO Q6H PRN (Reason: fever or pain) Qty: 30 0RF ondansetron 4 mg tablet,disintegrating 4 mg PO Q6-8H PRN (Reason: nausea and vomiting) Qty: 7 0RF nifedipine 30 mg tablet extended release 24hr 30 mg PO DAILY clonidine HCl 0.1 mg tablet 0.2 mg PO BEDTIME sucralfate 1 gram tablet 1 g PO QID hydroxyzine pamoate 50 mg capsule 50 - 100 mg PO BEDTIME PRN (Reason: Anxiety) lisinopril 10 mg tablet 10 mg PO DAILY aripiprazole 15 mg tablet 15 mg PO DAILY gabapentin 600 mg tablet 600 mg PO TID tamsulosin 0.4 mg capsule 0.4 mg PO DAILY gabapentin 300 mg capsule 300 mg PO TID albuterol sulfate [Ventolin HFA] 90 mcg/actuation HFA aerosol inhaler 2 puff inhalation Q4-6H PRN (Reason: Shortness Of Breath Or Wheezing) ondansetron 4 mg tablet,disintegrating 4 mg PO Q8H PRN (Reason: nausea and vomiting) Qty: 20 0RF prednisone 50 mg tablet 50 mg PO DAILY Qty: 4 0RF albuterol sulfate 90 mcg/actuation HFA aerosol inhaler 2 puff inhalation Q4-6H PRN (Reason: shortness of breath or wheezing) Qty: 8.5 1RF ibuprofen 600 mg tablet 600 mg PO Q6H PRN (Reason: fever or pain) Qty: 20 0RF ibuprofen 600 mg tablet 600 mg PO Q6H PRN (Reason: pain) Qty: 30 0RF acetaminophen [Tylenol Extra Strength] 500 mg tablet 500 mg PO Q6H PRN (Reason: pain) Qty: 30 0RF Referrals: Physician,Unknown J [Primary Care Provider] - 2 days
--- NOTE | 2023-10-10 11:20 | PC.NURSE ---
a&ox4. vss and up to date. 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 intermittent. pt verbalizes pain increases while laying flat and w/ coughing. EMS administered 324mg ASA as well as 1 nitro sublingual. 20gIV placed in the left AC by EMS. no sob/wob noted. respirations even and unlabored. labs obtained/sent to lab. pt to xray at this time. plan of care ongoing at this time.
[2023-10-10 11:28] LABS: MANUAL DIFF FLAG NO
[2023-10-10 11:36] LABS: Basophils Absolute Auto 0.1 X10*3/uL (0.0-0.2); Basophils Percent Auto 0.8 % (0-2); Eosinophils Absolute Auto 0.3 X10*3/uL (0.0-0.4); Eosinophils Percent Auto 3.7 % (0-4); Hematocrit 41.5 % (42.0-52.0); Hemoglobin 13.9 g/dl (14.0-18.0); Imm Gran Abs Auto 0.02 X10*3/uL (0.00-0.03); Imm Gran Pct Auto 0.2 % (0.0-0.4); Lymphocytes Percent Auto 24.3 % (20-40); Mean Corpuscular HGB Conc 33.5 g/dl (31.0-36.0); Mean Corpuscular Hemoglobin 28.4 pg (27.0-33.0); Mean Corpuscular Volume 84.9 fL (80.0-98.0); Mean Platelet Volume 10.3 fL (9.4-12.4); Monocytes Absolute Auto 0.7 X10*3/uL (0.1-1.2); Neutrophils Absolute Auto 5.3 x10*3/uL (2.0-8.3); Platelet Count 304 X10*3/uL (160-400); Red Blood Count 4.89 X10*6/uL (4.60-5.80); Red Cell Distribution Width 13.6 % (11.0-16.0); White Blood Count 8.4 X10*3/uL (4.8-10.8)
[2023-10-10 11:45] LABS: D Dimer High Sensitivity < 150 NG/ML
[2023-10-10 11:59] LABS: Troponin-I High Sensitivity < 2.7 ng/L (<3.5-35.0)
[2023-10-10 12:40] LABS: Alanine Aminotransferase 32 U/L (0-40); Albumin Level 3.9 g/dL (3.5-5.0); Alkaline Phosphatase 106 U/L (39-117); Anion Gap 8 (12-20); Aspartate Amino Transferase 34 U/L (5-37); Bilirubin Total 0.5 mg/dL (0.0-1.0); Blood Urea Nitrogen 12 mg/dL (9-16); Calcium 8.7 mg/dL (8.4-10.2); Carbon Dioxide 25 mmol/L (22-29); Chloride 107 mmol/L (96-108); Creatinine Clr Calc Pharmacy 135.3; Estimated Glomerular Filt Rate > 60; Glucose Random 104 mg/dL (60-115); Potassium 3.4 mmol/L (3.3-5.1); Sodium 137 mmol/L (135-145); Total Protein 7.1 g/dL (6.5-8.0)
[2023-10-10 14:18] VITALS: BP 124/91; PULSE 60; RESP 15; O2SAT 98
[2023-10-10 15:13] LABS: Appearance Urine Cloudy; Color Urine Yellow; Glucose Urine UA Negative (Negative); Leukocyte Esterase Urine Negative (Negative); Nitrite Urine Negative (Negative); Specific Gravity - Urine 1.015 (1.005-1.025); Urine Blood Negative (Negative); Urine Ketones Negative (Negative); Urine Protein Negative (Neg-Trace)
== END 2023-10-10 16:05 | disposition home or self-care (01) ==
PROVIDERS: Emergency Provider Emergency Medicine
DX: R07.1 Chest pain on breathing (principal); I10 Essential (primary) hypertension; G40.909 Epilepsy, unspecified, not intractable, without status epilepticus
CPT/HCPCS: 36415; 71045; 80053; 81003; 84484; 85025; 85379; 93005; 99283; 99285

== ENCOUNTER → 2023-10-10 11:09 | Outpatient (BNV) | payer OTHER, SELFPAY | PROVIDERS: Emergency Provider Emergency Medicine; Visit Provider Internal Medicine Cardiovascular Disease | DX: R00.1 Bradycardia, unspecified (principal) | CPT/HCPCS: 93010 ==

== ENCOUNTER 2023-10-23 14:05 | Outpatient (AMB) | payer OTHER, SELFPAY ==
[2023-10-23 14:12] VITALS: PULSE 75; O2SAT 97; BMI 23.1
--- NOTE | 2023-10-23 14:12 | A.OFFVIS_ITS ---
Intake Vital Signs 10/23/23 14:12 Height 5 ft 8 in Weight 152 lb 4 oz BMI 23.1 Pulse 75 Pulse Source Pulse Oximeter Pulse Oximetry (%) 97 Oxygen Delivery Method Room Air Intake Visit Reasons: 6m f/u appt Seizures - CONF w/address Intake Note: Still having seizures, had 2 last night. Supervisor Refining Required: No Accompanied by: Self / Same As Patient Allergies amoxicillin Allergy (Verified 10/23/23 14:13) Vomiting heparin Allergy (Verified 10/23/23 14:13) Hives lamotrigine [From Lamictal] Allergy (Verified 10/23/23 14:13) Hives levetiracetam [From Keppra] Allergy (Verified 10/23/23 14:13) Hives HPI HPI Comments History of Present Illness Details 37 y/o male patient presents for follow up of seizure. Pt states that he continues to have seizures almost everyday. He wakes up with urinary incontinence, and has multiple starring episodes a day. He is on gabapentin 900 mg TID and topiramate 50 mg BID. He tried Keppra, lamictal, dilantin and depakote, he had hives and not helpful for his seizure. Pt reports he had 5 days EEG done at [facility], but no result available at this time. Pt reports his brother had RNS done in [facility] and his seizures manages well after that. Pt was referred for RNS to [facility] Neurology, but he did not have phone call for scheduling yet. Pt reports frequent migraine associated with nausea and vomiting. He had multiple ED visit for migraine. He uses sumatriptan 50 mg for acute migraine treatment, it helped at the beginning but not anymore. Pt has hx of ANABEL and is on CPAP. He is followed by Sleep Medicine Services. [facility] Medical History Essential hypertension Sleep disorder Seizure disorder Back pain Neck pain PTSD (post-traumatic stress disorder) Seizure TBI (traumatic brain injury) Bipolar 1 disorder Surgical History Hx of hernia repair Family History Mother Cancer Family/Other No problems noted. 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 General: cooperative, comfortable, no acute distress and well developed Nutritional Appearance: average body habitus Orientation/consciousness: patient oriented x3 HEENT Head: Yes normal to inspection and Yes normocephalic Throat: Yes other (mallampatti grade 4) Neck Neck: Yes normal visual inspection Neuro General: patient oriented x3, tone normal and moves all extremities Cranial nerves: Yes CN's II-XII intact bilaterally, Yes Bilaterally intact EOM present, Yes Nystagmus not present, Yes Normal facial strength present and Yes Midline tongue present Speech: Abnormal speech present Gait exam (Neuro): Normal gait present Motor exam (neuro): 5/5 motor strength present throughout and Normal motor muscle tone present throughout Deep tendon reflexes (DTR's): Right triceps reflex intensity grade: 2+, Left triceps reflex intensity grade: 2+, Rt Biceps (C5, C6): 2+, Left biceps reflex intensity grade: 2+, Right brachioradialis reflex intensity grade: 2+, Left brachioradialis reflex intensity grade: 2+, Right patellar reflex intensity grade: 3+ and Left patellar reflex intensity grade: 3+ Coordination: [id number] test normal Psych Speech and movement: Pressured speech present and Echolalia present (Psych) Affect: Anxious affect present Assessment & Plan Assessment & Plan (1) Seizure disorder: Code(s): G40.909 - Epilepsy, unspecified, not intractable, without status epilepticus (2) Migraine: Code(s): G43.909 - Migraine, unspecified, not intractable, without status migrainosus Plan Continue topiramate 50 mg BID and gabapentin 900 mg TID. [facility] Epilepsy clinic information given to patient for scheduling. Requested the 5 days EEG result from [facility]. Coding Level of Care Code Est Pt Level 3 (71103) Diagnoses Seizure disorder G40.909 Migraine G43.909
== END 2023-10-23 14:44 | disposition home or self-care (01) ==
PROVIDERS: PCP Internal Medicine; Visit Provider Nurse Practitioner Family
DX: G40.909 Epilepsy, unspecified, not intractable, without status epilepticus (principal); G43.909 Migraine, unspecified, not intractable, without status migrainosus
CPT/HCPCS: 99213

== ENCOUNTER → 2023-10-23 14:05 | Outpatient (BNVA) | payer OTHER, SELFPAY | PROVIDERS: PCP Internal Medicine; Visit Provider Nurse Practitioner Family | DX: G40.909 Epilepsy, unspecified, not intractable, without status epilepticus (principal); G43.909 Migraine, unspecified, not intractable, without status migrainosus | CPT/HCPCS: 99212 ==

== ENCOUNTER 2023-10-25 21:49 | Emergency (ER) | payer OTHER, SELFPAY ==
[2023-10-25 21:56] VITALS: BP 125/79; BP 166/102; PULSE 74; PULSE 77; RESP 18; TEMP 36.6; O2SAT 96; O2SAT 99; BMI 29.2
[2023-10-25 22:18] LABS: MANUAL DIFF FLAG NO
[2023-10-25 22:21] LABS: Basophils Absolute Auto 0.1 X10*3/uL (0.0-0.2); Eosinophils Absolute Auto 0.3 X10*3/uL (0.0-0.4); Eosinophils Percent Auto 3.6 % (0-4); Hematocrit 39.2 % (42.0-52.0); Hemoglobin 13.4 g/dl (14.0-18.0); Imm Gran Abs Auto 0.01 X10*3/uL (0.00-0.03); Imm Gran Pct Auto 0.1 % (0.0-0.4); Lymphocytes Absolute Auto 2.6 X10*3/uL (1.2-4.9); Lymphocytes Percent Auto 38.4 % (20-40); Mean Corpuscular HGB Conc 34.2 g/dl (31.0-36.0); Mean Corpuscular Hemoglobin 28.7 pg (27.0-33.0); Mean Corpuscular Volume 83.9 fL (80.0-98.0); Mean Platelet Volume 9.7 fL (9.4-12.4); Monocytes Absolute Auto 0.6 X10*3/uL (0.1-1.2); Monocytes Percent Auto 8.7 % (2-11); Neutrophils Absolute Auto 3.3 x10*3/uL (2.0-8.3); Neutrophils Percent Auto 48.2 % (45-73); Platelet Count 291 X10*3/uL (160-400); Red Blood Count 4.67 X10*6/uL (4.60-5.80); Red Cell Distribution Width 13.2 % (11.0-16.0); White Blood Count 6.9 X10*3/uL (4.8-10.8)
[2023-10-25 22:36] LABS: Alanine Aminotransferase 28 U/L (0-40); Albumin Level 3.9 g/dL (3.5-5.0); Alkaline Phosphatase 100 U/L (39-117); Anion Gap 10 (12-20); Aspartate Amino Transferase 31 U/L (5-37); Bilirubin Total 0.3 mg/dL (0.0-1.0); Blood Urea Nitrogen 16 mg/dL (9-16); Calcium 8.6 mg/dL (8.4-10.2); Carbon Dioxide 25 mmol/L (22-29); Chloride 109 mmol/L (96-108); Creatinine Clr Calc Pharmacy 115.6; Estimated Glomerular Filt Rate > 60; Glucose Random 91 mg/dL (60-115); Potassium 3.2 mmol/L (3.3-5.1); Sodium 141 mmol/L (135-145); Total Protein 7.2 g/dL (6.5-8.0)
[2023-10-25 22:55] VITALS: PULSE 146; RESP 32; TEMP 36.9; O2SAT 98
[2023-10-25 22:59] VITALS: BP 123/76; PULSE 68; RESP 20; TEMP 36.4; O2SAT 97
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
[2023-10-26] MEDS: Magnesium Hydrox/Alum Hydrox 30 ML ORAL.SUSP PO (00:15)
[2023-10-26] MEDS: Lidocaine HCl Viscous 2 % 15 ML SOLUTION MUCOUS MEM (00:15)
[2023-10-26 00:50] VITALS: BP 130/79; PULSE 68; RESP 16; TEMP 36.8; O2SAT 98
== END 2023-10-26 00:50 | disposition home or self-care (01) ==
PROVIDERS: Emergency Provider Emergency Medicine; PCP Internal Medicine
DX: R11.2 Nausea with vomiting, unspecified (principal); R10.9 Unspecified abdominal pain; Z79.899 Other long term (current) drug therapy; Z87.891 Personal history of nicotine dependence
CPT/HCPCS: 36415; 80053; 85025; 99283

== ENCOUNTER 2023-11-01 21:32 | Emergency (ER) | payer OTHER, SELFPAY ==
[2023-11-01 21:45] VITALS: BP 133/86; BP 158/102; PULSE 83; PULSE 88; RESP 16; TEMP 36.6; O2SAT 97; O2SAT 98; BMI 27.4
[2023-11-01 22:05] LABS: MANUAL DIFF FLAG NO
[2023-11-01 22:07] LABS: Basophils Absolute Auto 0.1 X10*3/uL (0.0-0.2); Basophils Percent Auto 0.9 % (0-2); Eosinophils Absolute Auto 0.2 X10*3/uL (0.0-0.4); Eosinophils Percent Auto 3.1 % (0-4); Hematocrit 43.5 % (42.0-52.0); Imm Gran Abs Auto 0.02 X10*3/uL (0.00-0.03); Imm Gran Pct Auto 0.3 % (0.0-0.4); Lymphocytes Absolute Auto 1.9 X10*3/uL (1.2-4.9); Lymphocytes Percent Auto 29.7 % (20-40); Mean Corpuscular HGB Conc 34.5 g/dl (31.0-36.0); Mean Corpuscular Hemoglobin 28.5 pg (27.0-33.0); Mean Corpuscular Volume 82.7 fL (80.0-98.0); Mean Platelet Volume 9.5 fL (9.4-12.4); Monocytes Absolute Auto 0.6 X10*3/uL (0.1-1.2); Monocytes Percent Auto 9.5 % (2-11); Neutrophils Absolute Auto 3.6 x10*3/uL (2.0-8.3); Neutrophils Percent Auto 56.5 % (45-73); Platelet Count 323 X10*3/uL (160-400); Red Blood Count 5.26 X10*6/uL (4.60-5.80); Red Cell Distribution Width 13.4 % (11.0-16.0); White Blood Count 6.4 X10*3/uL (4.8-10.8)
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
[2023-11-01 22:19] LABS: Ethanol < 10 mg/dL
[2023-11-01 22:21] LABS: Alanine Aminotransferase 32 U/L (0-40); Alkaline Phosphatase 101 U/L (39-117); Anion Gap 13 (12-20); Aspartate Amino Transferase 29 U/L (5-37); Bilirubin Direct < 0.2 mg/dL (0.0-0.5); Bilirubin Total 0.2 mg/dL (0.0-1.0); Blood Urea Nitrogen 18 mg/dL (9-16); Calcium 8.9 mg/dL (8.4-10.2); Carbon Dioxide 22 mmol/L (22-29); Chloride 109 mmol/L (96-108); Creatinine Clr Calc Pharmacy 134.9; Estimated Glomerular Filt Rate > 60; Glucose Random 109 mg/dL (60-115); Magnesium 2.1 mg/dL (1.6-2.6); Potassium 3.1 mmol/L (3.3-5.1); Sodium 141 mmol/L (135-145); Total Protein 7.3 g/dL (6.5-8.0)
[2023-11-01 22:38] LABS: Amphetamine Screen Urine Not Detected (Not Detect); Barbiturates, Urine Not Detected (Not Detect); Benzodiazepines Screen Urine Not Detected (Not Detect); Cannabinoid Screen Urine Not Detected (Not Detect); Cocaine Screen Urine Not Detected (Not Detect); Fentanyl, urine Not Detected (Not Detect); Opiate Screen Urine Not Detected (Not Detect); Phencyclidine Screen Urine Not Detected (Not Detect)
[2023-11-01] MEDS: Potassium Chloride Packet 20 MEQ PACKET 40 MEQ PO (22:42)
[2023-11-01 22:59] LABS: Influenza A PCR NEGATIVE (Negative); Influenza B PCR NEGATIVE (Negative); Resp Syncy Virus RNA Qual PCR NEGATIVE (Negative); SARS COV2 PCR INHOUSE NEGATIVE (Negative)
[2023-11-01 23:33] VITALS: BP 135/76; PULSE 68; RESP 18; TEMP 37; O2SAT 98
== END 2023-11-01 23:34 | disposition home or self-care (01) ==
PROVIDERS: Emergency Provider Emergency Medicine
DX: F41.9 Anxiety disorder, unspecified (principal); E87.6 Hypokalemia; F31.9 Bipolar disorder, unspecified; G40.909 Epilepsy, unspecified, not intractable, without status epilepticus; I10 Essential (primary) hypertension; Z87.820 Personal history of traumatic brain injury; Z11.52 Encounter for screening for COVID-19; Z20.828 Contact with and (suspected) exposure to other viral communicable diseases
CPT/HCPCS: 0241U; 36415; 80048; 80076; 80307; 83735; 85025; 99283; S9485

== ENCOUNTER 2023-11-05 14:24 | Emergency (ER) | payer OTHER, SELFPAY ==
--- NOTE | ~2023-11-05 | XR_ITS ---
EXAMINATION: XR CHEST CLINICAL INFORMATION: Shortness of breath and productive cough. COMPARISON: 10/10/2023. TECHNIQUE: 2 views of the chest were obtained. FINDINGS: Lungs are well-inflated and clear. Trachea is midline in position. No interstitial disease, consolidation or mass. No pleural effusion or pneumothorax. Cardiac silhouette and pulmonary vessels are normal in size. The mediastinum and nacho have normal contour. The visualized bones and upper abdomen are unremarkable. XR/XR chest 2V IMPRESSION: Lungs have a normal appearance. No acute cardiopulmonary abnormality.
[2023-11-05 14:27] VITALS: BP 120/80; PULSE 90; O2SAT 97
[2023-11-05 15:16] VITALS: BP 135/69; PULSE 94; RESP 20; TEMP 37.1; O2SAT 98; BMI 29.2
--- NOTE | 2023-11-05 16:06 | ED_ITS ---
HPI - General Adult General Chief complaint: Upper Respiratory Symptoms Stated complaint: COUGH,CP Time Seen by Provider: 11/05/23 16:04 Source: patient Mode of arrival: ambulatory Limitations: no limitations History of Present Illness HPI narrative: Patient is a 37-year-old male with history of HTN, TBI, bipolar 1 disorder, seizures, PTSD presenting to the emergency department with complaint of cough productive of yellow sputum, shortness of breath and chest pain with coughing for the past 2-3 days. He denies fevers. States that he contacted his primary care provider who advised him his symptoms were likely viral, did not prescribe any medications. Patient denies fevers. Denies chest pain at rest. MD complaint: cough Onset (ago): day(s) Location: chest Pain Consistency: intermittent (only with coughing) Associated symptoms: cough Treatments prior to arrival: none Related Data Home Medications Medication Instructions Recorded Confirmed albuterol sulfate 90 mcg/actuation 2 puff inhalation Q4-6H PRN 06/21/23 06/21/23 aerosol inhaler (Ventolin HFA) Shortness Of Breath Or Wheezing aripiprazole 15 mg tablet 15 mg PO DAILY 06/21/23 06/21/23 clonidine HCl 0.1 mg tablet 0.2 mg PO BEDTIME 06/21/23 06/21/23 gabapentin 300 mg capsule 300 mg PO TID 06/21/23 06/21/23 gabapentin 600 mg tablet 600 mg PO TID 06/21/23 06/21/23 hydroxyzine pamoate 50 mg capsule 50 - 100 mg PO BEDTIME PRN Anxiety 06/21/23 06/21/23 lisinopril 10 mg tablet 10 mg PO DAILY 06/21/23 06/21/23 nifedipine 30 mg tablet,extended 30 mg PO DAILY 06/21/23 06/21/23 release 24 hr sucralfate 1 gram tablet 1 g PO QID 06/21/23 06/21/23 tamsulosin 0.4 mg capsule 0.4 mg PO DAILY 06/21/23 06/21/23 Previous Rx's Medication Instructions Recorded ibuprofen 600 mg tablet 600 mg PO Q6H PRN fever or pain 07/02/23 #30 tabs ondansetron 4 mg disintegrating 4 mg PO Q6-8H PRN nausea and 07/02/23 tablet vomiting #7 tabs ondansetron 4 mg disintegrating 4 mg PO Q8H PRN nausea and 07/11/23 tablet vomiting #20 tabs sumatriptan succinate 50 mg tablet 50 mg PO Q2H PRN migraine headache 07/22/23 (Imitrex) 30 days #12 tabs albuterol sulfate 90 mcg/actuation 2 puff inhalation Q4-6H PRN 08/08/23 aerosol inhaler shortness of breath or wheezing #8.5 grams ibuprofen 600 mg tablet 600 mg PO Q6H PRN fever or pain 08/08/23 #20 tabs prednisone 50 mg tablet 50 mg PO DAILY #4 tabs 08/08/23 topiramate 50 mg tablet 50 mg PO BID 30 days #60 tabs 09/01/23 acetaminophen 500 mg tablet 500 mg PO Q6H PRN pain #30 tabs 09/25/23 (Tylenol Extra Strength) ibuprofen 600 mg tablet 600 mg PO Q6H PRN pain #30 tabs 09/25/23 albuterol sulfate 90 mcg/actuation 2 puff inhalation Q4-6H PRN 11/05/23 aerosol inhaler shortness of breath or wheezing #6.7 grams prednisone 20 mg tablet 40 mg (2 x 20 mg) PO DAILY #10 tabs 11/05/23 Allergies Allergy/AdvReac Type Severity Reaction Status Date / Time amoxicillin Allergy Vomiting Verified 10/25/23 21:56 heparin Allergy Hives Verified 10/25/23 21:56 lamotrigine [From Lamictal] Allergy Hives Verified 10/25/23 21:56 levetiracetam [From Keppra] Allergy Hives Verified 10/25/23 21:56 Review of Systems Review of Systems: As per HPI. Yes all other systems are reviewed and are negative Constitutional: Constitutional: Reports as per HPI [facility] Past Medical History Medical History Essential hypertension Sleep disorder Seizure disorder Back pain Neck pain PTSD (post-traumatic stress disorder) Seizure TBI (traumatic brain injury) Bipolar 1 disorder Surgical History Hx of hernia repair Family History Family History Mother Cancer Family/Other No problems noted. Father Heart problem Social History Social History Alcohol intake: never Patient Tobacco Use Status: Former Tobacco user Advance Directives: No Advance Directives Information Provided: No Physical Exam ED Vital Signs: Vital Signs - 24 hr 11/05/23 15:16 Temperature 98.8 F Pulse Rate 94 Respiratory Rate 20 Blood Pressure 135/69 Pulse Oximetry 98 Oxygen Delivery Method Room Air BMI result Body Mass Index 29.2 Vital signs have been reviewed and appear to be correct. Blood pressure normal. Heart rate normal. Respiratory rate normal. Temperature normal. Oxygen saturation normal. Const General: cooperative, healthy appearing and no acute distress Orientation/consciousness: oriented to person, oriented to place, oriented to time and patient oriented x3 Limitations: no limitations HENMT Head: Yes normocephalic and Yes atraumatic Ears: external ears normal General nose exam: Normal external nose present Face and sinus: Yes face symmetric Mouth: oropharynx normal and moist mucous membranes Throat: Yes uvula midline Eyes Pupils: Equal, round and reactive pupils present Neck Neck: Yes normal visual inspection and Yes supple Resp Effort & Inspection: normal respiratory effort and able to speak in complete sentences Auscultation: clear to auscultation bilaterally, no rales, no rhonchi and wheezes inspiratory wheezes (scattered) Cardio Rate: regular rate Rhythm: regular rhythm Heart sounds: S1 normal heart sound present and S2 normal heart sound present GI Palpation (GI): Soft to palpation and nontender Auscultation: normoactive bowel sounds General: Yes no CVA tenderness Back/Spine/Pelvis Back: no CVA tenderness Skin General skin exam: elasticity normal and turgor normal Neuro General: oriented to person, oriented to place, oriented to time, patient oriented x3, moves all extremities, no focal motor deficits and CN's II-XI intact bilaterally Cranial nerves: Yes Equal, round and reactive pupils present Cognition (Neuro): normal cognition Extrem General: Yes full ROM, Yes no pedal edema and Yes no calf tenderness Psych Mental Status: mental status grossly normal Affect: normal affect Thought process: Normal thought process present Medical Decision Making Medical Decision Making MDM Narrative: Patient is a 37-year-old male with history of HTN, TBI, bipolar 1 disorder, s eizures, PTSD presenting to the emergency department with complaint of cough productive of yellow sputum, shortness of breath and chest pain with coughing for the past 2-3 days. On exam patient is awake, A+Ox3, VS WNL, afebrile, normal neurological exam without focal deficits, physical exam findings as above. Given reported symptoms and physical exam findings, initial differential includes viral illness, COVID, flu, RSV. Viral swabs negative. X-ray notable for no evidence of pneumonia. My interpretation is in agreement with the radiologist's interpretation. Results discussed with patient and all questions answered. Will treat patient with short course of prednisone, albuterol inhaler for cough and wheezing. Instructed patient to follow-up with primary care provider. Return precautions discussed at bedside. Patient verbalized understanding of and agreement with plan. Differential Diagnosis Differential Diagnoses: The differential diagnosis associated with the presentation includes As per [facility]. Lab Data [facility] Lab Attestation statement: I reviewed the patient's lab results. As per [facility]. Labs: Lab Results 11/05/23 Range/Units 16:12 Influenza Type A (PCR) NEGATIVE (Negative) Influenza Type B (PCR) NEGATIVE (Negative) RSV RNA Qual (PCR) NEGATIVE (Negative) SARS-CoV-2 RNA (RT-PCR) NEGATIVE (Negative) Independent Interpretation I performed an independent interpretation of an: Plain X-Ray Interpretation: No evidence of pneumonia Radiology Impression Discussion of test interpretation with radiology: I have reviewed the radiologist's reading. Radiologist Impression: XR/XR chest 2V IMPRESSION: Lungs have a normal appearance. No acute cardiopulmonary abnormality. External Record Review External record reviewed: Inpatient record, Office record and Outpatient record Prescription Management I considered prescription management with: Other Discharge Plan Discharge Clinical Impression: Viral infection, Wheezing on inspiration Patient Disposition: Home, Self-Care Instructions: How to Use a Metered-Dose Inhaler (ED), Viral Syndrome (ED), Wheezing (ED) Additional Instructions: You were evaluated in the emergency department today for cough. Your chest x- ray did not show evidence of a pneumonia. Your cough is most likely due to a viral illness which will improve on its own with rest and fluids. You are being prescribed a short course of steroids to decrease inflammation as well as an albuterol inhaler as needed for wheezing or shortness of breath. You can use an [id number] cough medicine such as dextromethorphan for cough. Please schedule an appointment for follow-up with your primary care physician within 2 days. Return to the emergency department if you experience worsening cough, fever 100.4? F or greater, recurrent vomiting, chest pain, shortness of breath, or any other concerning symptoms. Prescriptions: New prednisone 20 mg tablet 40 mg PO DAILY Qty: 10 0RF albuterol sulfate 90 mcg/actuation HFA aerosol inhaler 2 puff inhalation Q4-6H PRN (Reason: shortness of breath or wheezing) Qty: 6.7 0RF No Action sumatriptan succinate [Imitrex] 50 mg tablet 50 mg PO Q2H PRN (Reason: migraine headache) 30 Days Qty: 12 1RF Rx Instructions: do not exceed 2 doses per 24 hrs topiramate 50 mg tablet 50 mg PO BID 30 Days Qty: 60 3RF ibuprofen 600 mg tablet 600 mg PO Q6H PRN (Reason: fever or pain) Qty: 30 0RF ondansetron 4 mg tablet,disintegrating 4 mg PO Q6-8H PRN (Reason: nausea and vomiting) Qty: 7 0RF nifedipine 30 mg tablet extended release 24hr 30 mg PO DAILY clonidine HCl 0.1 mg tablet 0.2 mg PO BEDTIME sucralfate 1 gram tablet 1 g PO QID hydroxyzine pamoate 50 mg capsule 50 - 100 mg PO BEDTIME PRN (Reason: Anxiety) lisinopril 10 mg tablet 10 mg PO DAILY aripiprazole 15 mg tablet 15 mg PO DAILY gabapentin 600 mg tablet 600 mg PO TID tamsulosin 0.4 mg capsule 0.4 mg PO DAILY gabapentin 300 mg capsule 300 mg PO TID albuterol sulfate [Ventolin HFA] 90 mcg/actuation HFA aerosol inhaler 2 puff inhalation Q4-6H PRN (Reason: Shortness Of Breath Or Wheezing) ondansetron 4 mg tablet,disintegrating 4 mg PO Q8H PRN (Reason: nausea and vomiting) Qty: 20 0RF prednisone 50 mg tablet 50 mg PO DAILY Qty: 4 0RF albuterol sulfate 90 mcg/actuation HFA aerosol inhaler 2 puff inhalation Q4-6H PRN (Reason: shortness of breath or wheezing) Qty: 8.5 1RF ibuprofen 600 mg tablet 600 mg PO Q6H PRN (Reason: fever or pain) Qty: 20 0RF ibuprofen 600 mg tablet 600 mg PO Q6H PRN (Reason: pain) Qty: 30 0RF acetaminophen [Tylenol Extra Strength] 500 mg tablet 500 mg PO Q6H PRN (Reason: pain) Qty: 30 0RF
[2023-11-05 17:10] LABS: Influenza A PCR NEGATIVE (Negative); Influenza B PCR NEGATIVE (Negative); Resp Syncy Virus RNA Qual PCR NEGATIVE (Negative); SARS COV2 PCR INHOUSE NEGATIVE (Negative)
[2023-11-05 17:54] VITALS: BP 138/76; PULSE 78; RESP 18; TEMP 37; O2SAT 98
== END 2023-11-05 18:39 | disposition home or self-care (01) ==
PROVIDERS: Emergency Provider Emergency Medicine; PCP Internal Medicine
DX: B34.9 Viral infection, unspecified (principal); R06.2 Wheezing; I10 Essential (primary) hypertension; Z88.0 Allergy status to penicillin; Z88.8 Allergy status to other drugs, medicaments and biological substances
CPT/HCPCS: 0241U; 71046; 99283; 99284

== ENCOUNTER 2023-11-15 18:12 | Emergency (ER) | payer OTHER, SELFPAY ==
[2023-11-15 18:17] VITALS: BP 130/52; PULSE 73; O2SAT 98
[2023-11-15 20:44] VITALS: BP 127/84; PULSE 61; RESP 16; TEMP 36.7; O2SAT 97; BMI 29.2
[2023-11-15 21:13] LABS: MANUAL DIFF FLAG NO
[2023-11-15 21:14] LABS: Basophils Absolute Auto 0.1 X10*3/uL (0.0-0.2); Basophils Percent Auto 0.9 % (0-2); Eosinophils Absolute Auto 0.3 X10*3/uL (0.0-0.4); Eosinophils Percent Auto 3.5 % (0-4); Hematocrit 40.6 % (42.0-52.0); Hemoglobin 13.9 g/dl (14.0-18.0); Imm Gran Abs Auto 0.02 X10*3/uL (0.00-0.03); Imm Gran Pct Auto 0.3 % (0.0-0.4); Lymphocytes Absolute Auto 2.8 X10*3/uL (1.2-4.9); Lymphocytes Percent Auto 35.1 % (20-40); Mean Corpuscular HGB Conc 34.2 g/dl (31.0-36.0); Mean Corpuscular Hemoglobin 28.3 pg (27.0-33.0); Mean Corpuscular Volume 82.5 fL (80.0-98.0); Mean Platelet Volume 9.5 fL (9.4-12.4); Monocytes Absolute Auto 0.6 X10*3/uL (0.1-1.2); Monocytes Percent Auto 7.8 % (2-11); Neutrophils Absolute Auto 4.2 x10*3/uL (2.0-8.3); Neutrophils Percent Auto 52.4 % (45-73); Platelet Count 319 X10*3/uL (160-400); Red Blood Count 4.92 X10*6/uL (4.60-5.80); Red Cell Distribution Width 13.2 % (11.0-16.0)
[2023-11-15 21:30] LABS: Alanine Aminotransferase 31 U/L (0-40); Albumin Level 3.9 g/dL (3.5-5.0); Alkaline Phosphatase 102 U/L (39-117); Anion Gap 9 (12-20); Aspartate Amino Transferase 28 U/L (5-37); Bilirubin Total 0.3 mg/dL (0.0-1.0); Blood Urea Nitrogen 24 mg/dL (9-16); COVID-19 Test Negative (Negative); Calcium 8.5 mg/dL (8.4-10.2); Carbon Dioxide 22 mmol/L (22-29); Chloride 111 mmol/L (96-108); Creatinine Clr Calc Pharmacy 88.1; Estimated Glomerular Filt Rate > 60; Glucose Random 89 mg/dL (60-115); IDNOW Serial# 08D9AD1C; IDNOW Serial# 152EDE1D; Influenza A Negative (Negative); Influenza B2 Negative (Negative); Lipase 23 U/L (8-78); Potassium 3.4 mmol/L (3.3-5.1); Sodium 139 mmol/L (135-145); Total Protein 7.2 g/dL (6.5-8.0)
--- NOTE | 2023-11-15 23:31 | ED_ITS ---
HPI - General Adult General Chief complaint: Nausea/Vomiting/Diarrhea Stated complaint: FELL IN BATHROOM,NAUSEA AND VOMITING ALL DAY Time Seen by Provider: 11/15/23 23:31 History of Present Illness HPI narrative: The patient is a 37-year-old male with a history of a significant seizure disorder. He says that for the last 2 days he has had what he thought was a stomach bug with nausea, vomiting, and diarrhea. Today he was vomiting in the bathroom and he believes he passed out after vomiting. He does not think he had a seizure. An ambulance was called and he was brought to the hospital. He says that his stomach feels like it is tied up in knots. The patient was recently started on topiramate for his seizure disorder and he says this has been helpful and has reduced the frequency of his seizures. Related Data Home Medications ?Medication ?Instructions ?Recorded ?Confirmed albuterol sulfate 90 mcg/actuation 2 puff inhalation Q4-6H PRN 06/21/23 06/21/23 aerosol inhaler (Ventolin HFA) Shortness Of Breath Or Wheezing aripiprazole 15 mg tablet 15 mg PO DAILY 06/21/23 06/21/23 clonidine HCl 0.1 mg tablet 0.2 mg PO BEDTIME 06/21/23 06/21/23 gabapentin 300 mg capsule 300 mg PO TID 06/21/23 06/21/23 gabapentin 600 mg tablet 600 mg PO TID 06/21/23 06/21/23 hydroxyzine pamoate 50 mg capsule 50 - 100 mg PO BEDTIME PRN Anxiety 06/21/23 06/21/23 lisinopril 10 mg tablet 10 mg PO DAILY 06/21/23 06/21/23 nifedipine 30 mg tablet,extended 30 mg PO DAILY 06/21/23 06/21/23 release 24 hr sucralfate 1 gram tablet 1 g PO QID 06/21/23 06/21/23 tamsulosin 0.4 mg capsule 0.4 mg PO DAILY 06/21/23 06/21/23 Previous Rx's ?Medication ?Instructions ?Recorded ibuprofen 600 mg tablet 600 mg PO Q6H PRN fever or pain 07/02/23 #30 tabs ondansetron 4 mg disintegrating 4 mg PO Q6-8H PRN nausea and 07/02/23 tablet vomiting #7 tabs ondansetron 4 mg disintegrating 4 mg PO Q8H PRN nausea and 07/11/23 tablet vomiting #20 tabs albuterol sulfate 90 mcg/actuation 2 puff inhalation Q4-6H PRN 08/08/23 aerosol inhaler shortness of breath or wheezing #8.5 grams ibuprofen 600 mg tablet 600 mg PO Q6H PRN fever or pain 08/08/23 #20 tabs prednisone 50 mg tablet 50 mg PO DAILY #4 tabs 08/08/23 topiramate 50 mg tablet 50 mg PO BID 30 days #60 tabs 09/01/23 acetaminophen 500 mg tablet 500 mg PO Q6H PRN pain #30 tabs 09/25/23 (Tylenol Extra Strength) ibuprofen 600 mg tablet 600 mg PO Q6H PRN pain #30 tabs 09/25/23 albuterol sulfate 90 mcg/actuation 2 puff inhalation Q4-6H PRN 11/05/23 aerosol inhaler shortness of breath or wheezing #6.7 grams prednisone 20 mg tablet 40 mg (2 x 20 mg) PO DAILY #10 tabs 11/05/23 sumatriptan succinate 50 mg tablet 50 mg PO Q2H PRN migraine headache 11/05/23 (Imitrex) 30 days #12 tabs Allergies Allergy/AdvReac Type Severity Reaction Status Date / Time amoxicillin Allergy Vomiting Verified 11/15/23 20:45 heparin Allergy Hives Verified 11/15/23 20:45 lamotrigine [From Lamictal] Allergy Hives Verified 11/15/23 20:45 levetiracetam [From Keppra] Allergy Hives Verified 11/15/23 20:45 [facility] Past Medical History Medical History Essential hypertension Sleep disorder Seizure disorder Back pain Neck pain PTSD (post-traumatic stress disorder) Seizure TBI (traumatic brain injury) Bipolar 1 disorder Surgical History Hx of hernia repair Family History Family History Mother Cancer Family/Other No problems noted. Father Heart problem Social History Social History Alcohol intake: former Patient Tobacco Use Status: Former Tobacco user Smoked in Last 30 Days: No Use of substances other than those prescribed or required for medical reasons: No Advance Directives: No Advance Directives Information Provided: No Physical Exam ED Vital Signs: Vital Signs - 24 hr 11/15/23 20:44 11/16/23 01:06 11/16/23 02:23 Temperature 98.1 F 97.6 F 97.8 F Pulse Rate 61 65 57 Respiratory Rate 16 16 16 Blood Pressure 127/84 112/70 105/63 Pulse Oximetry 97 98 97 Oxygen Delivery Method Room Air Room Air Room Air 11/16/23 02:39 Temperature 97.8 F Pulse Rate 57 Respiratory Rate 16 Blood Pressure 105/63 Pulse Oximetry 97 Oxygen Delivery Method Room Air BMI result Body Mass Index 29.2 Const Other: The patient is awake and alert. He looks somewhat worn out but not acutely toxic. HENMT Other: Face is symmetrical, mucous membranes moist Eyes Other: Pupils are round equal, conjunctivae are clear Neck Other: Neck supple Resp Effort & Inspection: normal respiratory effort Auscultation: clear to auscultation bilaterally Cardio Rate: regular rate Rhythm: regular rhythm Heart sounds: S1 normal heart sound present and S2 normal heart sound present GI Other: Abdomen is soft and nontender Skin Other: Skin is dry and unremarkable Neuro Other: Awake, alert, appropriate, face symmetrical, speech clear, moving all extremities normally, grossly neurologically intact. Extrem Other: No calf swelling or tenderness, no edema Medications Administered Discontinued Medications Generic Name Dose Route Start Last Admin Trade Name Freq PRN Reason Stop Dose Admin Diphenhydramine HCl 25 mg 11/15/23 23:37 11/15/23 23:53 Diphenhydramine Hcl 50 Mg/Ml Vial IVPUSH 11/15/23 23:38 25 mg ONCE ONE Administration Famotidine 20 mg 11/15/23 23:39 11/15/23 23:54 Famotidine/Pf 20 Mg/2 Ml Vial IVPUSH 11/15/23 23:40 20 mg ONCE ONE Administration Sodium Chloride 1,000 mls @ 999 mls/hr 11/15/23 23:45 11/16/23 01:00 Ns IV 11/16/23 00:45 Infused .Q1H1M THALIA Infusion Sodium Chloride 1,000 mls @ 999 mls/hr 11/15/23 23:45 11/16/23 00:19 Ns IV 11/16/23 00:45 Not Given .Q1H1M THALIA Sodium Chloride 1,000 mls @ 999 mls/hr 11/15/23 23:45 11/16/23 01:00 Ns IV 11/16/23 00:45 Not Given .Q1H1M THALIA Ketorolac Tromethamine 10 mg 11/15/23 23:36 11/15/23 23:50 Ketorolac Tromethamine 15 Mg/Ml Vial IVPUSH 11/15/23 23:37 10 mg ONCE ONE Administration Medical Decision Making Medical Decision Making [facility] Narrative: The patient is a 37-year-old male with a significant history of a seizure disorder. He presents with 2 days of nausea, vomiting, diarrhea. His abdomen is benign. His labs are unremarkable. He was treated with IV fluids and felt much better. He was eager for discharge. Lab Data 11/15/23 21:06 11/15/23 21:06 Labs: Lab Results 11/15/23 Range/Units 21:06 WBC 8.0 (4.8-10.8) X10*3/uL RBC 4.92 (4.60-5.80) X10*6/uL Hgb 13.9 L (14.0-18.0) g/dl Hct 40.6 L (42.0-52.0) % MCV 82.5 (80.0-98.0) fL MCH 28.3 (27.0-33.0) pg MCHC 34.2 (31.0-36.0) g/dl RDW 13.2 (11.0-16.0) % Plt Count 319 (160-400) X10*3/uL MPV 9.5 (9.4-12.4) fL Immature Gran % (Auto) 0.3 (0.0-0.4) % Neut % (Auto) 52.4 (45-73) % Lymph % (Auto) 35.1 (20-40) % Pitkin % (Auto) 7.8 (2-11) % Eos % (Auto) 3.5 (0-4) % Baso % (Auto) 0.9 (0-2) % Lymph # (Auto) 2.8 (1.2-4.9) X10*3/uL Pitkin # (Auto) 0.6 (0.1-1.2) X10*3/uL Eos # (Auto) 0.3 (0.0-0.4) X10*3/uL Baso # (Auto) 0.1 (0.0-0.2) X10*3/uL Abs Immat Gran (auto) 0.02 (0.00-0.03) X10*3/uL Absolute Neuts (auto) 4.2 (2.0-8.3) x10*3/uL Absolute Nucleated RBC 0.000 (0.0-0.012) X10*3/uL Nucleated RBC % (auto) 0.0 (0.0-0.2) /100WBC Sodium 139 (135-145) mmol/L Potassium 3.4 (3.3-5.1) mmol/L Chloride 111 H (96-108) mmol/L Carbon Dioxide 22 (22-29) mmol/L Anion Gap 9 L (12-20) BUN 24 H (9-16) mg/dL Creatinine 1.05 (0.5-1.4) mg/dL Estim Creat Clear Calc 88.1 Estimated GFR > 60 Random Glucose 89 (60-115) mg/dL Calcium 8.5 (8.4-10.2) mg/dL Total Bilirubin 0.3 (0.0-1.0) mg/dL AST 28 (5-37) U/L ALT 31 (0-40) U/L Alkaline Phosphatase 102 (39-117) U/L Total Protein 7.2 (6.5-8.0) g/dL Albumin 3.9 (3.5-5.0) g/dL Lipase 23 (8-78) U/L COVID-19 (ADEN) Negative (Negative) COVID-19 Clin Com See Note Influenza Type A (JUAN MANUEL) Negative (Negative) Influenza Type B (JUAN MANUEL) Negative (Negative) Influenza A & B Note See Note Discharge Plan Discharge Clinical Impression: Acute gastroenteritis Patient Disposition: Home, Self-Care Additional Instructions: Your laboratory testing suggested you were mildly dehydrated. You received 2 bags of IV fluids. I think you will likely get better at this point. Please continue your regular medications. Follow up with your regular doctor. Return to the emergency room if you feel significantly worse. Prescriptions: No Action topiramate 50 mg tablet 50 mg PO BID 30 Days Qty: 60 3RF sumatriptan succinate [Imitrex] 50 mg tablet 50 mg PO Q2H PRN (Reason: migraine headache) 30 Days Qty: 12 3RF Rx Instructions: do not exceed 2 doses per 24 hrs ibuprofen 600 mg tablet 600 mg PO Q6H PRN (Reason: fever or pain) Qty: 30 0RF ondansetron 4 mg tablet,disintegrating 4 mg PO Q6-8H PRN (Reason: nausea and vomiting) Qty: 7 0RF prednisone 20 mg tablet 40 mg PO DAILY Qty: 10 0RF albuterol sulfate 90 mcg/actuation HFA aerosol inhaler 2 puff inhalation Q4-6H PRN (Reason: shortness of breath or wheezing) Qty: 6.7 0RF nifedipine 30 mg tablet extended release 24hr 30 mg PO DAILY clonidine HCl 0.1 mg tablet 0.2 mg PO BEDTIME sucralfate 1 gram tablet 1 g PO QID hydroxyzine pamoate 50 mg capsule 50 - 100 mg PO BEDTIME PRN (Reason: Anxiety) lisinopril 10 mg tablet 10 mg PO DAILY aripiprazole 15 mg tablet 15 mg PO DAILY gabapentin 600 mg tablet 600 mg PO TID tamsulosin 0.4 mg capsule 0.4 mg PO DAILY gabapentin 300 mg capsule 300 mg PO TID albuterol sulfate [Ventolin HFA] 90 mcg/actuation HFA aerosol inhaler 2 puff inhalation Q4-6H PRN (Reason: Shortness Of Breath Or Wheezing) ondansetron 4 mg tablet,disintegrating 4 mg PO Q8H PRN (Reason: nausea and vomiting) Qty: 20 0RF prednisone 50 mg tablet 50 mg PO DAILY Qty: 4 0RF albuterol sulfate 90 mcg/actuation HFA aerosol inhaler 2 puff inhalation Q4-6H PRN (Reason: shortness of breath or wheezing) Qty: 8.5 1RF ibuprofen 600 mg tablet 600 mg PO Q6H PRN (Reason: fever or pain) Qty: 20 0RF ibuprofen 600 mg tablet 600 mg PO Q6H PRN (Reason: pain) Qty: 30 0RF acetaminophen [Tylenol Extra Strength] 500 mg tablet 500 mg PO Q6H PRN (Reason: pain) Qty: 30 0RF Referrals: Belinda Collier DO [Primary Care Provider] - (gastroenteritis) Interventions: ED Discharge Assessment Last Done: 11/16/23 02:39 Discharge Date/Time: 11/16/23 02:40 Print Language: Bermudian
--- NOTE | 2023-11-15 23:31 | ECG_ITS ---
Test Reason : WEAKNESS Blood Pressure : / mmHG Vent. Rate : 058 BPM Atrial Rate : 058 BPM P-R Int : 148 ms QRS Dur : 094 ms QT Int : 454 ms P-R-T Axes : 007 029 025 degrees QTc Int : 445 ms Sinus bradycardia Minimal voltage criteria for LVH, may be normal variant ( Sokolow-Mendez ) Early repolarization Borderline ECG When compared with ECG of 10-OCT-2023 11:25, T wave amplitude has increased in Lateral leads Referred By: Negrita Huerta Electronically Signed By:Kerwin Lynn
[2023-11-15] MEDS: Ketorolac Tromethamine 15 MG/ML VIAL 10 MG IVPUSH (23:50)
[2023-11-15] MEDS: 0.9 % Sodium Chloride 1,000 ML 999 ML IV (23:51)
[2023-11-15] MEDS: diphenhydrAMINE HCL 50 MG/ML VIAL 25 MG IVPUSH (23:53)
[2023-11-15] MEDS: Famotidine/PF 20 MG/2 ML VIAL IVPUSH (23:54)
[2023-11-16 01:06] VITALS: BP 112/70; PULSE 65; RESP 16; TEMP 36.4; O2SAT 98
[2023-11-16 02:23] VITALS: BP 105/63; PULSE 57; RESP 16; TEMP 36.6; O2SAT 97
[2023-11-16 02:39] VITALS: BP 105/63; PULSE 57; RESP 16; TEMP 36.6; O2SAT 97
== END 2023-11-16 02:40 | disposition home or self-care (01) ==
PROVIDERS: Emergency Provider Emergency Medicine; PCP Internal Medicine
DX: K52.9 Noninfective gastroenteritis and colitis, unspecified (principal); R11.2 Nausea with vomiting, unspecified; R00.1 Bradycardia, unspecified; R53.1 Weakness; Z79.899 Other long term (current) drug therapy; Z11.52 Encounter for screening for COVID-19
CPT/HCPCS: 80053; 83690; 85025; 87502; 87635; 93005; 96361; 96374; 96375; 99284; 99285; J1200; J1885

== ENCOUNTER → 2023-11-15 23:31 | Outpatient (BNV) | payer OTHER, SELFPAY | PROVIDERS: Emergency Provider Emergency Medicine; PCP Internal Medicine; Visit Provider Internal Medicine Cardiovascular Disease | DX: R00.1 Bradycardia, unspecified (principal) | CPT/HCPCS: 93010 ==

== ENCOUNTER 2023-11-20 20:34 | Emergency (ER) | payer OTHER, SELFPAY ==
--- NOTE | 2023-11-20 20:53 | ED.PSYCH ---
HPI - Psych General Chief Complaint: Psychiatric Symptoms Stated Complaint: crisis/behavioral Time Seen by Provider: 11/20/23 20:46 Source: patient and EMS Mode of arrival: EMS Limitations: no limitations History of Present Illness HPI Narrative: patient comes to the emergency room via ambulance. Patient called 911 because he was having racing thoughts, feeling uneasy, angry, thinking about hurting his aunt. Patient states that today his aunt showed up at his property, per patient his aunt knows that she has not supposed to be there. Patient states that she wanted money from him. This seems to be a trigger for the patient. Patient denies SI. Patient denies using alcohol or drugs. Related Data Home Medications ?Medication ?Instructions ?Recorded ?Confirmed albuterol sulfate 90 mcg/actuation 2 puff inhalation Q4-6H PRN 06/21/23 06/21/23 aerosol inhaler (Ventolin HFA) Shortness Of Breath Or Wheezing aripiprazole 15 mg tablet 15 mg PO DAILY 06/21/23 06/21/23 clonidine HCl 0.1 mg tablet 0.2 mg PO BEDTIME 06/21/23 06/21/23 gabapentin 300 mg capsule 300 mg PO TID 06/21/23 06/21/23 gabapentin 600 mg tablet 600 mg PO TID 06/21/23 06/21/23 hydroxyzine pamoate 50 mg capsule 50 - 100 mg PO BEDTIME PRN Anxiety 06/21/23 06/21/23 lisinopril 10 mg tablet 10 mg PO DAILY 06/21/23 06/21/23 nifedipine 30 mg tablet,extended 30 mg PO DAILY 06/21/23 06/21/23 release 24 hr sucralfate 1 gram tablet 1 g PO QID 06/21/23 06/21/23 tamsulosin 0.4 mg capsule 0.4 mg PO DAILY 06/21/23 06/21/23 Previous Rx's ?Medication ?Instructions ?Recorded ibuprofen 600 mg tablet 600 mg PO Q6H PRN fever or pain 07/02/23 #30 tabs ondansetron 4 mg disintegrating 4 mg PO Q6-8H PRN nausea and 07/02/23 tablet vomiting #7 tabs ondansetron 4 mg disintegrating 4 mg PO Q8H PRN nausea and 07/11/23 tablet vomiting #20 tabs albuterol sulfate 90 mcg/actuation 2 puff inhalation Q4-6H PRN 08/08/23 aerosol inhaler shortness of breath or wheezing #8.5 grams ibuprofen 600 mg tablet 600 mg PO Q6H PRN fever or pain 08/08/23 #20 tabs prednisone 50 mg tablet 50 mg PO DAILY #4 tabs 08/08/23 topiramate 50 mg tablet 50 mg PO BID 30 days #60 tabs 09/01/23 acetaminophen 500 mg tablet 500 mg PO Q6H PRN pain #30 tabs 09/25/23 (Tylenol Extra Strength) ibuprofen 600 mg tablet 600 mg PO Q6H PRN pain #30 tabs 09/25/23 albuterol sulfate 90 mcg/actuation 2 puff inhalation Q4-6H PRN 11/05/23 aerosol inhaler shortness of breath or wheezing #6.7 grams prednisone 20 mg tablet 40 mg (2 x 20 mg) PO DAILY #10 tabs 11/05/23 sumatriptan succinate 50 mg tablet 50 mg PO Q2H PRN migraine headache 11/05/23 (Imitrex) 30 days #12 tabs Allergies Allergy/AdvReac Type Severity Reaction Status Date / Time amoxicillin Allergy Vomiting Verified 11/20/23 21:18 heparin Allergy Hives Verified 11/20/23 21:18 lamotrigine [From Lamictal] Allergy Hives Verified 11/20/23 21:18 levetiracetam [From Keppra] Allergy Hives Verified 11/20/23 21:18 Review of Systems Review of Systems: Constitutional : No Weight loss, No Fever, No Chills, No Night Sweats, No Fatigue, No Malaise ENT/Mouth : No Hearing loss, No Ear Pain, No Nasal Congestion, No Sinus Pain, No Hoarseness, No sore throat, No Rhinorrhea, No Swallowing Difficulty Eyes: No Eye Pain, No Swelling, No Redness, No Foreign Body, No Discharge, No Vision Changes Cardiovascular : No Chest Pain, No SOB, No Dyspnea on Exertion, No Orthopnea, No Edema, No Palpitations Respiratory : No Cough, No Sputum, No Wheezing, No Smoke Exposure, No Dyspnea Gastrointestinal : No Nausea, No Vomiting, No Diarrhea, No Constipation, No abdominal Pain, No Hematochezia, No Melena Genitourinary : no irregular bleeding, No Dysuria, No Urinary Frequency, No Hematuria, No Urinary Incontinence, No Urgency, No Flank Pain, No Urinary Flow Changes, No Hesitancy Musculoskeletal : No joint pain, No Myalgias, No Joint Swelling Skin : No Skin Lesions, No rash Neuro : No Weakness, No Numbness, No Paresthesias, No Loss of Consciousness, No Dizziness, No Headache Psych : complaining of anxiety, feeling aggressive, feeling like hurting his and unspecified. No SI Heme/Lymph: No Bruising, No Bleeding,No Lymphadenopathy Endocrine : No Polyuria, No Polydipsia, No Temperature Intolerance [facility] Past Medical History Medical History Essential hypertension Sleep disorder Seizure disorder Back pain Neck pain PTSD (post-traumatic stress disorder) Seizure TBI (traumatic brain injury) Bipolar 1 disorder Surgical History Hx of hernia repair Family History Family History Mother Cancer Family/Other No problems noted. Father Heart problem Social History Social History Alcohol intake: former Patient Tobacco Use Status: Former Tobacco user Advance Directives: No Advance Directives Information Provided: No Physical Exam Vital Signs: Vital Signs: Last Vital Signs Temp 97.5 F 11/20/23 21:14 Pulse 80 11/20/23 21:14 Resp 18 11/20/23 21:14 BP 118/81 11/20/23 21:14 Pulse Ox 96 11/20/23 21:14 O2 Del Method Room Air 11/20/23 21:14 BMI result Body Mass Index 26.6 Const: Other: Appearance: Alert. Oriented X3. No acute distress. Eyes: Pupils equal, round and reactive to light. ENT: Pharynx normal. Neck: Normal inspection. Neck supple. No lymph nodes noted. No crepitus CVS: Normal heart rate and rhythm. Pulses normal. Normal S1 and S2 Respiratory: No respiratory distress. Breath sounds normal. No Wheezing. No rales Abdomen: Soft and nontender. No rigidity. No distention. Skin: Skin warm and dry. Normal skin color. Normal skin turgor. Extremities: No lower extremity edema. No Lacerations. No Rash Neuro: Oriented X 3. No motor deficit. No sensory deficit. Moving all extremities. No slurred speech. CN 2 through 12 grossly intact Psych: calm, cooperative, seems angry but redirectable Course Course Course Narrative: - patient angry, but cooperative and redirectable - all of patient's labs pending - care team consult pending - physician observation started 20:55 Medical Decision Making Medical Decision Making [facility] Narrative: - my interpretation of labs: Hematology and chemistry at baseline, patient has not given a urinalysis yet, ETOH level negative. Differential Diagnosis Differential Diagnoses: The differential diagnosis associated with the presentation includes ( anxiety, depression, aggressive behavior, PTSD) Admission/Observation Consideration of admission/observation: Escalation of care including admission/observation considered ( patient waiting to be seen by the care team) Lab Data 11/20/23 21:18 11/20/23 21:18 Labs: Lab Results 11/20/23 Range/Units 21:18 WBC 7.4 (4.8-10.8) X10*3/uL RBC 5.33 (4.60-5.80) X10*6/uL Hgb 15.4 (14.0-18.0) g/dl Hct 43.7 (42.0-52.0) % MCV 82.0 (80.0-98.0) fL MCH 28.9 (27.0-33.0) pg MCHC 35.2 (31.0-36.0) g/dl RDW 12.9 (11.0-16.0) % Plt Count 329 (160-400) X10*3/uL MPV 10.1 (9.4-12.4) fL Immature Gran % (Auto) 0.3 (0.0-0.4) % Neut % (Auto) 51.7 (45-73) % Lymph % (Auto) 34.1 (20-40) % [place] % (Auto) 8.4 (2-11) % Eos % (Auto) 4.1 H (0-4) % Baso % (Auto) 1.4 (0-2) % Lymph # (Auto) 2.5 (1.2-4.9) X10*3/uL [place] # (Auto) 0.6 (0.1-1.2) X10*3/uL Eos # (Auto) 0.3 (0.0-0.4) X10*3/uL Baso # (Auto) 0.1 (0.0-0.2) X10*3/uL Abs Immat Gran (auto) 0.02 (0.00-0.03) X10*3/uL Absolute Neuts (auto) 3.8 (2.0-8.3) x10*3/uL Absolute Nucleated RBC 0.000 (0.0-0.012) X10*3/uL Nucleated RBC % (auto) 0.0 (0.0-0.2) /100WBC Sodium 139 (135-145) mmol/L Potassium 3.4 (3.3-5.1) mmol/L Chloride 108 (96-108) mmol/L Carbon Dioxide 22 (22-29) mmol/L Anion Gap 12 (12-20) BUN 16 (9-16) mg/dL Creatinine 0.84 (0.5-1.4) mg/dL Estim Creat Clear Calc 121.5 Estimated GFR > 60 Random Glucose 94 (60-115) mg/dL Calcium 9.2 D (8.4-10.2) mg/dL Magnesium 2.4 (1.6-2.6) mg/dL Total Bilirubin 0.6 (0.0-1.0) mg/dL AST 27 (5-37) U/L ALT 29 (0-40) U/L Alkaline Phosphatase 118 H (39-117) U/L Total Protein 7.7 (6.5-8.0) g/dL Albumin 4.1 (3.5-5.0) g/dL Urine Color Yellow Urine Appearance Clear Urine pH 6.5 (5.0-9.0) Ur Specific [place] 1.015 (1.005-1.025) Urine Protein Negative (Neg-Trace) mg/dL Urine Glucose (UA) Negative (Negative) mg/dL Urine Ketones Negative (Negative) mg/dL Urine Blood Negative (Negative) Urine Nitrite Negative (Negative) Ur Leukocyte Esterase Negative (Negative) Salicylates < 5.0 L (15-30) mg/dL Acetaminophen < 3 (<30) mcg/mL Ethyl Alcohol < 10 mg/dL COVID-19 ([facility]) Negative (Negative) COVID-19 Clin Com See Note Discharge Plan Discharge Clinical Impression: Feeling angry Patient Disposition: Still a Patient Prescriptions: No Action topiramate 50 mg tablet 50 mg PO BID 30 Days Qty: 60 3RF sumatriptan succinate [Imitrex] 50 mg tablet 50 mg PO Q2H PRN (Reason: migraine headache) 30 Days Qty: 12 3RF Rx Instructions: do not exceed 2 doses per 24 hrs ibuprofen 600 mg tablet 600 mg PO Q6H PRN (Reason: fever or pain) Qty: 30 0RF ondansetron 4 mg tablet,disintegrating 4 mg PO Q6-8H PRN (Reason: nausea and vomiting) Qty: 7 0RF prednisone 20 mg tablet 40 mg PO DAILY Qty: 10 0RF albuterol sulfate 90 mcg/actuation HFA aerosol inhaler 2 puff inhalation Q4-6H PRN (Reason: shortness of breath or wheezing) Qty: 6.7 0RF nifedipine 30 mg tablet extended release 24hr 30 mg PO DAILY clonidine HCl 0.1 mg tablet 0.2 mg PO BEDTIME sucralfate 1 gram tablet 1 g PO QID hydroxyzine pamoate 50 mg capsule 50 - 100 mg PO BEDTIME PRN (Reason: Anxiety) lisinopril 10 mg tablet 10 mg PO DAILY aripiprazole 15 mg tablet 15 mg PO DAILY gabapentin 600 mg tablet 600 mg PO TID tamsulosin 0.4 mg capsule 0.4 mg PO DAILY gabapentin 300 mg capsule 300 mg PO TID albuterol sulfate [Ventolin HFA] 90 mcg/actuation HFA aerosol inhaler 2 puff inhalation Q4-6H PRN (Reason: Shortness Of Breath Or Wheezing) ondansetron 4 mg tablet,disintegrating 4 mg PO Q8H PRN (Reason: nausea and vomiting) Qty: 20 0RF prednisone 50 mg tablet 50 mg PO DAILY Qty: 4 0RF albuterol sulfate 90 mcg/actuation HFA aerosol inhaler 2 puff inhalation Q4-6H PRN (Reason: shortness of breath or wheezing) Qty: 8.5 1RF ibuprofen 600 mg tablet 600 mg PO Q6H PRN (Reason: fever or pain) Qty: 20 0RF ibuprofen 600 mg tablet 600 mg PO Q6H PRN (Reason: pain) Qty: 30 0RF acetaminophen [Tylenol Extra Strength] 500 mg tablet 500 mg PO Q6H PRN (Reason: pain) Qty: 30 0RF Interventions: [place]-Suicide Risk Severity Scale Last Done: 11/20/23 23:45 Print Language: Ukrainian
[2023-11-20 21:09] VITALS: BP 118/81; PULSE 80; RESP 14; TEMP 36.4; O2SAT 96
[2023-11-20 21:14] VITALS: BP 118/81; BP 134/100; PULSE 70; PULSE 80; RESP 18; TEMP 36.4; O2SAT 96; O2SAT 99; BMI 26.6
[2023-11-20 21:26] LABS: MANUAL DIFF FLAG NO
[2023-11-20 21:29] LABS: Appearance Urine Clear; Color Urine Yellow; Glucose Urine UA Negative (Negative); Leukocyte Esterase Urine Negative (Negative); Nitrite Urine Negative (Negative); PH 6.5 (5.0-9.0); Specific Gravity - Urine 1.015 (1.005-1.025); Urine Blood Negative (Negative); Urine Ketones Negative (Negative); Urine Protein Negative (Neg-Trace)
[2023-11-20 21:40] LABS: Basophils Absolute Auto 0.1 X10*3/uL (0.0-0.2); Basophils Percent Auto 1.4 % (0-2); Eosinophils Absolute Auto 0.3 X10*3/uL (0.0-0.4); Eosinophils Percent Auto 4.1 % (0-4); Hematocrit 43.7 % (42.0-52.0); Hemoglobin 15.4 g/dl (14.0-18.0); Imm Gran Abs Auto 0.02 X10*3/uL (0.00-0.03); Imm Gran Pct Auto 0.3 % (0.0-0.4); Lymphocytes Absolute Auto 2.5 X10*3/uL (1.2-4.9); Lymphocytes Percent Auto 34.1 % (20-40); Mean Corpuscular HGB Conc 35.2 g/dl (31.0-36.0); Mean Corpuscular Hemoglobin 28.9 pg (27.0-33.0); Mean Platelet Volume 10.1 fL (9.4-12.4); Monocytes Absolute Auto 0.6 X10*3/uL (0.1-1.2); Monocytes Percent Auto 8.4 % (2-11); Neutrophils Absolute Auto 3.8 x10*3/uL (2.0-8.3); Neutrophils Percent Auto 51.7 % (45-73); Platelet Count 329 X10*3/uL (160-400); Red Blood Count 5.33 X10*6/uL (4.60-5.80); Red Cell Distribution Width 12.9 % (11.0-16.0); White Blood Count 7.4 X10*3/uL (4.8-10.8)
[2023-11-20 21:41] LABS: COVID-19 Test Negative (Negative); IDNOW Serial# 6674DD1D
[2023-11-20 21:44] LABS: Acetaminophen LAB < 3 mcg/mL (<30); Alanine Aminotransferase 29 U/L (0-40); Albumin Level 4.1 g/dL (3.5-5.0); Alkaline Phosphatase 118 U/L (39-117); Anion Gap 12 (12-20); Aspartate Amino Transferase 27 U/L (5-37); Bilirubin Total 0.6 mg/dL (0.0-1.0); Blood Urea Nitrogen 16 mg/dL (9-16); Calcium 9.2 mg/dL (8.4-10.2); Carbon Dioxide 22 mmol/L (22-29); Chloride 108 mmol/L (96-108); Creatinine Clr Calc Pharmacy 121.5; Estimated Glomerular Filt Rate > 60; Ethanol < 10 mg/dL; Glucose Random 94 mg/dL (60-115); Magnesium 2.4 mg/dL (1.6-2.6); Potassium 3.4 mmol/L (3.3-5.1); Salicylate < 5.0 mg/dL (15-30); Sodium 139 mmol/L (135-145); Total Protein 7.7 g/dL (6.5-8.0)
[2023-11-21 06:22] VITALS: BP 113/79; PULSE 62; RESP 16; TEMP 36.8; O2SAT 98
--- NOTE | 2023-11-21 07:20 | PC.NURSE ---
Assumed care of patient at 0645, patient appears to be sleeping, respirations even and unlabored, no apparent distress noted. Continue plan of care for med clearance and then CARE eval
[2023-11-21 07:55] LABS: Amphetamine Screen Urine Not Detected (Not Detect); Barbiturates, Urine Not Detected (Not Detect); Benzodiazepines Screen Urine Not Detected (Not Detect); Buprenorphine Scr Not Detected (Not Detect); Cannabinoid Screen Urine Not Detected (Not Detect); Cocaine Screen Urine Not Detected (Not Detect); Fentanyl, urine Not Detected (Not Detect); Methadone Screen, Urine Not Detected (Not Detect); Opiate Screen Urine Not Detected (Not Detect); Oxycodone Screen Urine Not Detected (Not Detect); Phencyclidine Screen Urine Not Detected (Not Detect)
[2023-11-21] MEDS: ARIPiprazole 15 MG TABLET PO (10:06)
[2023-11-21] MEDS: lisinopriL 10 MG TABLET PO (10:06)
[2023-11-21] MEDS: Topiramate 25 MG TABLET 50 MG PO (10:06)
[2023-11-21] MEDS: Sucralfate 1 GM TABLET PO (10:07)
[2023-11-21] MEDS: Gabapentin 300 MG CAPSULE PO (10:07)
[2023-11-21] MEDS: Tamsulosin HCL 0.4 MG CAPSULE PO (10:07)
[2023-11-21] MEDS: NIFEdipine ER 30 MG TAB.ER.24 PO (10:12)
[2023-11-21 11:30] VITALS: BP 114/87; PULSE 68; RESP 14; TEMP 36.6; O2SAT 97
== END 2023-11-21 11:31 | disposition home or self-care (01) ==
PROVIDERS: Physician Assistant; Emergency Provider Emergency Medicine
DX: R45.4 Irritability and anger (principal); I10 Essential (primary) hypertension; G40.909 Epilepsy, unspecified, not intractable, without status epilepticus; Z87.820 Personal history of traumatic brain injury
CPT/HCPCS: 36415; 80053; 80143; 80179; 80307; 81003; 83735; 85025; 87635; 99284; S9485

== ENCOUNTER 2023-11-26 15:41 | Emergency (ER) | payer OTHER, SELFPAY ==
--- NOTE | ~2023-11-26 | CT_ITS ---
EXAMINATION: CT HEAD WITHOUT CONTRAST CLINICAL INFORMATION: Unwitnessed seizure. COMPARISON: CT head 09/26/2023. TECHNIQUE: Contiguous axial imaging was performed from the skull base to vertex without intravenous administration of contrast. This CT examination was performed using dose optimization techniques as appropriate, variously including the following: *Automated exposure control *Adjustment of mA and/or kV according to patient size (this includes techniques or standardized protocols for targeted exams where dose is matched to indication/reason for exam; i.e. extremities or head) *Use of iterative reconstruction technique DLP: 591 mGy-cm FINDINGS: There is no evidence of acute intracranial hemorrhage or edematous territorial infarction. There is no abnormal attenuation within the brain parenchyma. [place]ahan-white matter differentiation is preserved. Unchanged small hypodensity in the region of the right internal capsule (2:20) Redemonstration of significant volume loss in the cerebellum, more so inferiorly with prominence of the fissures. The ventricles are normal in size and configuration. No evidence for obstructive hydrocephalus. No abnormal mass effect or midline shift. No extra-axial fluid collections. No acute soft tissue or osseous abnormalities. Partial opacification of some ethmoid air cells. Opacification of the right maxillary antrum. No air-fluid levels. Mastoids and middle ear cavities are clear. CT/CT head/brain wo IV con IMPRESSION: 1. No evidence of acute intracranial hemorrhage or edematous territorial infarction. 2. Unchanged small hypodensity in the region of the right internal capsule which could represent an age-indeterminate lacunar infarct. 3. Redemonstration of significant cerebellar volume loss.
[2023-11-26 15:57] VITALS: BP 140/84; PULSE 71; RESP 16; TEMP 36.6; O2SAT 98; BMI 29.2
--- NOTE | 2023-11-26 16:05 | ED.SEIZURE ---
HPI - Seizure General Chief Complaint: Seizure Stated Complaint: multiple seizures Source: patient Mode of arrival: EMS Limitations: no limitations History of Present Illness HPI Narrative: 37-year-old male with a history of hypertension, obstructive sleep apnea, seizure disorder, PTSD, traumatic brain injury, bipolar disorder who presents emergency department for evaluation of an unwitnessed seizure that occurred on the bus prior to coming to the emergency department. Patient states that he woke up this morning covered in urine in the bathroom and did not know how he got there he believes that seizure. He states that his seizure seemed to be [id number] despite taking his medications. I did review the patient's neurology office 10/23/2023. At that time the patient reported having 2 seizures the night before his appointment. He also reported that he was having seizures almost every day and that he wakes up with urine incontinence. The note states he is on gabapentin 900 mg t.i.d. and Topamax 50 mg b.i.d.. He is tried Keppra, Lamictal, Dilantin and Depakote reactions to Keppra and Lamictal and Dilantin was not helpful. Patient has migraine headaches and has had multiple ED visits. He does have a history of obstructive sleep apnea and is on CPAP. Seizure History: Yes (last yr was last occurrence) Related Data Home Medications ?Medication ?Instructions ?Recorded ?Confirmed albuterol sulfate 90 mcg/actuation 2 puff inhalation Q4-6H PRN 06/21/23 11/21/23 aerosol inhaler (Ventolin HFA) Shortness Of Breath Or Wheezing aripiprazole 15 mg tablet 15 mg PO DAILY 06/21/23 11/21/23 clonidine HCl 0.1 mg tablet 0.2 mg PO BEDTIME 06/21/23 11/21/23 gabapentin 300 mg capsule 300 mg PO TID 06/21/23 11/21/23 hydroxyzine pamoate 50 mg capsule 50 - 100 mg PO BEDTIME PRN Anxiety 06/21/23 11/21/23 lisinopril 10 mg tablet 10 mg PO DAILY 06/21/23 11/21/23 nifedipine 30 mg tablet,extended 30 mg PO DAILY 06/21/23 11/21/23 release 24 hr sucralfate 1 gram tablet 1 g PO TID 06/21/23 11/21/23 tamsulosin 0.4 mg capsule 0.4 mg PO DAILY 06/21/23 11/21/23 Previous Rx's ?Medication ?Instructions ?Recorded topiramate 50 mg tablet 50 mg PO BID 30 days #60 tabs 09/01/23 topiramate 100 mg tablet (Topamax) 100 mg PO BID 90 days #180 tabs 11/26/23 Allergies Allergy/AdvReac Type Severity Reaction Status Date / Time amoxicillin Allergy Vomiting Verified 11/26/23 16:01 heparin Allergy Hives Verified 11/26/23 16:01 lamotrigine [From Lamictal] Allergy Hives Verified 11/26/23 16:01 levetiracetam [From Keppra] Allergy Hives Verified 11/26/23 16:01 Review of Systems Review of Systems: Yes all other systems are reviewed and are negative [facility] Past Medical History [facility] Narrative: Social history: He denies tobacco use. He states that he quit 1 year prior. He also states that he quit drinking alcohol 3 years prior. He denies drug use. Medical History Essential hypertension Sleep disorder Seizure disorder Back pain Neck pain PTSD (post-traumatic stress disorder) Seizure TBI (traumatic brain injury) Bipolar 1 disorder Surgical History Hx of hernia repair Family History Family History Mother Cancer Family/Other No problems noted. Father Heart problem Social History Social History Alcohol intake: former Patient Tobacco Use Status: Former Tobacco user Advance Directives: No Advance Directives Information Provided: No Do you have a plan to hurt others: No Plan Physical Exam Vital Signs: Vital Signs: Last Vital Signs Temp 98.0 F 11/26/23 19:39 Pulse 60 11/26/23 19:39 Resp 18 11/26/23 19:39 BP 137/84 11/26/23 19:39 Pulse Ox 98 11/26/23 19:39 O2 Del Method Room Air 11/26/23 19:39 BMI result Body Mass Index 29.2 Vital signs were normal Exam: General: Awake, alert in no distress Head: Normocephalic, atraumatic EENT: PERRL, Lids normal, sclera normal, conjunctiva normal, nose normal , ears normal, throat without erythema or exudates Neck: Supple, no adenopathy Lung: breath sounds symmetric, no wheezing, rales or rhonchi Chest: symmetric movement, nontender Heart: regular rate and rhythm, normal S1, S2 no murmurs or rubs Abdomen: soft, non-tender, nondistended, normal bowel sounds Back: no vertebral tenderness, no CVAT Extremities: no deformities, moves all extremities symmetrically Neuro: Awake, alert, oriented, normal speech, cranial nerves intact, moves all extremities symmetrically Psych: Pleasant, cooperative Medications Administered Discontinued Medications Generic Name Dose Route Start Last Admin Trade Name Freq PRN Reason Stop Dose Admin Sodium Chloride 1,000 mls @ 999 mls/hr 11/26/23 16:27 11/26/23 17:55 Ns IV 11/26/23 17:27 999 mls/hr .Q1H1M STA Administration Medical Decision Making Medical Decision Making MDM Narrative: 37-year-old male with a history of hypertension, obstructive sleep apnea, seizure disorder, PTSD, traumatic brain injury, bipolar disorder who presents emergency department for evaluation of an unwitnessed seizure that occurred on the bus prior to coming to the emergency department. Patient states that he woke up this morning covered in urine in the bathroom and did not know how he got there he believes that seizure. He states that his seizure seemed to be [id number] despite taking his medications. [place] [facility] [place] and was last seen in the office on 10/23/2023, note states the patient has frequent seizures despite being on gabapentin 900 mg t.i.d. and Topamax 500 mg b.i.d. patient's vital signs were normal. Physical examination was unremarkable pain Differential diagnosis: ?Includes but is not limited to uncontrolled seizure disorder, noncompliance with medications, electrolyte abnormalities, anemia Following evaluation was ordered: CBC, CMP, ethanol level, drug screen, lactic acid, lipase, magnesium, PTT, CT scan of the brain without IV contrast Patient was initially treated with the following: Ativan 1 mg IV to raise the patient's seizure threshold Course: 21:03 My interpretation patient's laboratory evaluation as follows: CBC was normal. CMP was normal. Lactic acid was normal at 0.7. Alcohol was below detectable limits. CT scan of the brain revealed no acute findings. The patient continues to have seizures despite being compliant with his medications. The patient's gabapentin appears to be maxed out therefore I will increase his Topamax from 50 mg b.i.d. to 100 mg b.i.d. to follow-up with [facility] [place] provider for re-evaluation. Patient was given printed and verbal instructions discharged home. Admission/Observation Consideration of admission/observation: Escalation of care including admission/observation considered Lab Data [facility] Lab Attestation statement: I reviewed the patient's lab results. 11/26/23 17:16 11/26/23 17:16 Labs: Lab Results 11/26/23 Range/Units 17:16 WBC 7.1 (4.8-10.8) X10*3/uL RBC 5.12 (4.60-5.80) X10*6/uL Hgb 14.6 (14.0-18.0) g/dl Hct 42.2 (42.0-52.0) % MCV 82.4 (80.0-98.0) fL MCH 28.5 (27.0-33.0) pg MCHC 34.6 (31.0-36.0) g/dl RDW 12.9 (11.0-16.0) % Plt Count 334 (160-400) X10*3/uL MPV 9.6 (9.4-12.4) fL Immature Gran % (Auto) 0.1 (0.0-0.4) % Neut % (Auto) 54.8 (45-73) % Lymph % (Auto) 33.9 (20-40) % [place] % (Auto) 6.8 (2-11) % Eos % (Auto) 3.4 (0-4) % Baso % (Auto) 1.0 (0-2) % Lymph # (Auto) 2.4 (1.2-4.9) X10*3/uL [place] # (Auto) 0.5 (0.1-1.2) X10*3/uL Eos # (Auto) 0.2 (0.0-0.4) X10*3/uL Baso # (Auto) 0.1 (0.0-0.2) X10*3/uL Abs Immat Gran (auto) 0.01 (0.00-0.03) X10*3/uL Absolute Neuts (auto) 3.9 (2.0-8.3) x10*3/uL Absolute Nucleated RBC 0.000 (0.0-0.012) X10*3/uL Nucleated RBC % (auto) 0.0 (0.0-0.2) /100WBC APTT 30.9 (26.0-36.8) SEC Sodium 138 (135-145) mmol/L Potassium 3.8 (3.3-5.1) mmol/L Chloride 107 (96-108) mmol/L Carbon Dioxide 25 (22-29) mmol/L Anion Gap 10 L (12-20) BUN 16 (9-16) mg/dL Creatinine 0.81 (0.5-1.4) mg/dL Estim Creat Clear Calc 114.2 Estimated GFR > 60 Random Glucose 93 (60-115) mg/dL Lactic Acid 0.7 (0.5-2.0) mmol/L Calcium 8.9 (8.4-10.2) mg/dL Magnesium 2.3 (1.6-2.6) mg/dL Total Bilirubin 0.3 (0.0-1.0) mg/dL AST 32 (5-37) U/L ALT 32 (0-40) U/L Alkaline Phosphatase 109 (39-117) U/L Total Protein 7.5 (6.5-8.0) g/dL Albumin 4.0 (3.5-5.0) g/dL Lipase 22 (8-78) U/L Ethyl Alcohol < 10 mg/dL Radiology Impression Discussion of test interpretation with radiology: I have reviewed the radiologist's reading. Radiologist Impression: CT head/brain wo IV con IMPRESSION: 1. No evidence of acute intracranial hemorrhage or edematous territorial infarction. 2. Unchanged small hypodensity in the region of the right internal capsule which could represent an age-indeterminate lacunar infarct. 3. Redemonstration of significant cerebellar volume loss. Dictated By: Zeenat Cabrales Discharge Plan Discharge Clinical Impression: Seizures Patient Disposition: Home, Self-Care Additional Instructions: Your blood work was unremarkable. Your CT scan did not reveal any findings to explain why you continue to have seizures. Based on your last neurology appointment here, you are on 2 medications for your seizures. Gabapentin 900 mg 3 times a day, which I want you to continue. Topamax 50 mg twice a day. I am going to increase this medication to 100 mg twice a day. You are given a dose of Topamax 100 mg orally here in the emergency department. Start this new higher dose tomorrow morning. You need to follow-up with your [facility] [place] provider to determine further management of your seizure disorder. Prescriptions: New topiramate [Topamax] 100 mg tablet 100 mg PO BID 90 Days Qty: 180 0RF No Action topiramate 50 mg tablet 50 mg PO BID 30 Days Qty: 60 3RF nifedipine 30 mg tablet extended release 24hr 30 mg PO DAILY clonidine HCl 0.1 mg tablet 0.2 mg PO BEDTIME sucralfate 1 gram tablet 1 g PO TID hydroxyzine pamoate 50 mg capsule 50 - 100 mg PO BEDTIME PRN (Reason: Anxiety) lisinopril 10 mg tablet 10 mg PO DAILY aripiprazole 15 mg tablet 15 mg PO DAILY tamsulosin 0.4 mg capsule 0.4 mg PO DAILY gabapentin 300 mg capsule 300 mg PO TID albuterol sulfate [Ventolin HFA] 90 mcg/actuation HFA aerosol inhaler 2 puff inhalation Q4-6H PRN (Reason: Shortness Of Breath Or Wheezing) Print Language: Canadian
--- NOTE | 2023-11-26 16:28 | ECG_ITS ---
Test Reason : SEIZURES Blood Pressure : / mmHG Vent. Rate : 063 BPM Atrial Rate : 063 BPM P-R Int : 156 ms QRS Dur : 090 ms QT Int : 404 ms P-R-T Axes : 003 015 025 degrees QTc Int : 413 ms Normal sinus rhythm Moderate voltage criteria for LVH, may be normal variant ( R in aVL , Sokolow-Mendez ) Borderline ECG When compared with ECG of 16-NOV-2023 00:34, No significant change was found Referred By: Chriss Arias Electronically Signed By:ANSHU PATRICIO MD
[2023-11-26 17:23] LABS: Basophils Absolute Auto 0.1 X10*3/uL (0.0-0.2); Eosinophils Absolute Auto 0.2 X10*3/uL (0.0-0.4); Eosinophils Percent Auto 3.4 % (0-4); Hematocrit 42.2 % (42.0-52.0); Hemoglobin 14.6 g/dl (14.0-18.0); Imm Gran Abs Auto 0.01 X10*3/uL (0.00-0.03); Imm Gran Pct Auto 0.1 % (0.0-0.4); Lymphocytes Absolute Auto 2.4 X10*3/uL (1.2-4.9); Lymphocytes Percent Auto 33.9 % (20-40); MANUAL DIFF FLAG NO; Mean Corpuscular HGB Conc 34.6 g/dl (31.0-36.0); Mean Corpuscular Hemoglobin 28.5 pg (27.0-33.0); Mean Corpuscular Volume 82.4 fL (80.0-98.0); Mean Platelet Volume 9.6 fL (9.4-12.4); Monocytes Absolute Auto 0.5 X10*3/uL (0.1-1.2); Monocytes Percent Auto 6.8 % (2-11); Neutrophils Absolute Auto 3.9 x10*3/uL (2.0-8.3); Neutrophils Percent Auto 54.8 % (45-73); Platelet Count 334 X10*3/uL (160-400); Red Blood Count 5.12 X10*6/uL (4.60-5.80); Red Cell Distribution Width 12.9 % (11.0-16.0); White Blood Count 7.1 X10*3/uL (4.8-10.8)
[2023-11-26 17:34] LABS: Lactic Acid 0.7 mmol/L (0.5-2.0)
[2023-11-26 17:37] LABS: Partial Thromboplastin Time 30.9 SEC (26.0-36.8)
[2023-11-26 17:45] LABS: Alanine Aminotransferase 32 U/L (0-40); Alkaline Phosphatase 109 U/L (39-117); Anion Gap 10 (12-20); Aspartate Amino Transferase 32 U/L (5-37); Bilirubin Total 0.3 mg/dL (0.0-1.0); Blood Urea Nitrogen 16 mg/dL (9-16); Calcium 8.9 mg/dL (8.4-10.2); Carbon Dioxide 25 mmol/L (22-29); Chloride 107 mmol/L (96-108); Creatinine Clr Calc Pharmacy 114.2; Estimated Glomerular Filt Rate > 60; Ethanol < 10 mg/dL; Glucose Random 93 mg/dL (60-115); Lipase 22 U/L (8-78); Magnesium 2.3 mg/dL (1.6-2.6); Potassium 3.8 mmol/L (3.3-5.1); Sodium 138 mmol/L (135-145); Total Protein 7.5 g/dL (6.5-8.0)
[2023-11-26] MEDS: 0.9 % Sodium Chloride 1,000 ML 999 ML IV (17:55)
[2023-11-26 19:39] VITALS: BP 137/84; PULSE 60; RESP 18; TEMP 36.7; O2SAT 98
--- NOTE | 2023-11-26 19:40 | MHC.EDTECH ---
THIS PCT ASSUMED CARE OF PATIENT AT 1900 ,VITALS TAKEN ,PT WAS GIVEN URINAL TO PROVIDE URINE SAMPLE ,PAT IS ALERT AND ORIENTED PLAYING GAMES ON HIS PHONE .
--- NOTE | 2023-11-26 21:34 | PC.NURSE ---
spoke with provider and no ativan to be given pt will be receiving topamax.
[2023-11-26] MEDS: Topiramate 100 MG TABLET PO (21:58)
[2023-11-26 22:01] VITALS: BP 137/84; PULSE 60; RESP 18; TEMP 36.7; O2SAT 98
== END 2023-11-26 22:03 | disposition home or self-care (01) ==
PROVIDERS: Emergency Provider Emergency Medicine Emergency Medical Services; PCP Internal Medicine
DX: G40.909 Epilepsy, unspecified, not intractable, without status epilepticus (principal); I10 Essential (primary) hypertension; Z87.820 Personal history of traumatic brain injury; Z79.899 Other long term (current) drug therapy
CPT/HCPCS: 36415; 70450; 80053; 80307; 83605; 83690; 83735; 85025; 85730; 93005; 99284

== ENCOUNTER → 2023-11-26 16:28 | Outpatient (BNV) | payer OTHER, SELFPAY | PROVIDERS: Emergency Provider Emergency Medicine Emergency Medical Services; PCP Internal Medicine; Visit Provider Internal Medicine Cardiovascular Disease | DX: R56.9 Unspecified convulsions (principal) | CPT/HCPCS: 93010 ==

== ENCOUNTER 2023-12-01 17:41 | Emergency (ER) | payer OTHER, SELFPAY ==
[2023-12-01 18:13] VITALS: BP 122/89; PULSE 65; RESP 14; TEMP 36.4; O2SAT 98; BMI 23.3
--- NOTE | 2023-12-01 18:13 | ED.GENADULT ---
HPI - General Adult General Chief complaint: Extremity Injury, Lower Stated complaint: Infected toe Time Seen by Provider: 12/01/23 18:18 Source: patient Mode of arrival: ambulatory Limitations: no limitations History of Present Illness HPI narrative: 37-year-old male history of PTSD, anxiety, hypertension, seizure disorder presenting with pain to left 5th toe noticed pain today after waking, reports it is red, hot, swollen and hurts if he hits it against anything. Pain is severe. Denies numbness, tingling. Denies fevers, chills, chest pain, shortness breath, nausea, vomiting abdominal pain, blunt trauma to area Related Data Home Medications ?Medication ?Instructions ?Recorded ?Confirmed albuterol sulfate 90 mcg/actuation 2 puff inhalation Q4-6H PRN 06/21/23 11/21/23 aerosol inhaler (Ventolin HFA) Shortness Of Breath Or Wheezing aripiprazole 15 mg tablet 15 mg PO DAILY 06/21/23 11/21/23 clonidine HCl 0.1 mg tablet 0.2 mg PO BEDTIME 06/21/23 11/21/23 gabapentin 300 mg capsule 300 mg PO TID 06/21/23 11/21/23 hydroxyzine pamoate 50 mg capsule 50 - 100 mg PO BEDTIME PRN Anxiety 06/21/23 11/21/23 lisinopril 10 mg tablet 10 mg PO DAILY 06/21/23 11/21/23 nifedipine 30 mg tablet,extended 30 mg PO DAILY 06/21/23 11/21/23 release 24 hr sucralfate 1 gram tablet 1 g PO TID 06/21/23 11/21/23 tamsulosin 0.4 mg capsule 0.4 mg PO DAILY 06/21/23 11/21/23 Previous Rx's ?Medication ?Instructions ?Recorded topiramate 50 mg tablet 50 mg PO BID 30 days #60 tabs 09/01/23 topiramate 100 mg tablet (Topamax) 100 mg PO BID 90 days #180 tabs 11/26/23 bacitracin 500 unit/gram topical 1 appl topical Q8H #14 grams 12/01/23 ointment doxycycline hyclate 100 mg capsule 100 mg PO BID 10 days #20 caps 12/01/23 Allergies Allergy/AdvReac Type Severity Reaction Status Date / Time amoxicillin Allergy Vomiting Verified 12/01/23 18:14 heparin Allergy Hives Verified 12/01/23 18:14 lamotrigine [From Lamictal] Allergy Hives Verified 12/01/23 18:14 levetiracetam [From Keppra] Allergy Hives Verified 12/01/23 18:14 Review of Systems Review of Systems: Yes all other systems are reviewed and are negative [facility] Past Medical History Attestation statement: The following information was validated with the patient. Source: old records reviewed and nursing notes reviewed Medical History Essential hypertension Sleep disorder Seizure disorder Back pain Neck pain PTSD (post-traumatic stress disorder) Seizure TBI (traumatic brain injury) Bipolar 1 disorder Surgical History Hx of hernia repair Family History Family History Mother Cancer Family/Other No problems noted. Father Heart problem Social History Social History Alcohol intake: never Patient Tobacco Use Status: Former Tobacco user Advance Directives: No Advance Directives Information Provided: No Do you have a plan to hurt others: No Plan Physical Exam ED Vital Signs: Vital Signs - 24 hr 12/01/23 18:13 Temperature 97.6 F Pulse Rate 65 Respiratory Rate 14 Blood Pressure 122/89 Pulse Oximetry 98 Oxygen Delivery Method Room Air BMI result Body Mass Index 23.3 vss Appearance: Alert.? Oriented X3.? No acute distress.? Head: Normocephalic, atraumatic, no step-offs or deformities Eyes: Pupils equal, round and reactive to light.? Neck: Normal inspection.? Neck supple.? CVS: Pulses normal.? Respiratory: No respiratory distress.? Abdomen: Soft and nontender.? Skin: Skin warm and dry.? Normal skin color.? Normal skin turgor.?+ paronychia to left 5th toe w/ small abscess, errythema and warmth overlying. Normal R foot . 2+ dp, at, pt, pulses equal and b/l Extremities: No lower extremity edema.? No calf ttp. 5/5 strength to bilateral upper and lower extremities Neuro: Oriented X 3.? No motor deficit.? No sensory deficit. CN 2-12 intact Course Course Course Narrative: This is an RME: Additional HPI, ROS, PE not included below will be deferred to primary provider. 37 yo m with pmhx of HTN presents with left fifth toe pain for a few days. Reports tingling and up the leg Medical Decision Making Medical Decision Making MDM Narrative: 1820 37 yo m presents w/ pain to l 5th toe X 1 day PE paronychia to left 5th toe w/ small abscess, errythema and warmth overlying. Normal R foot . 2+ dp, at, pt, pulses equal and b/l History and physical exam concerning for paronychia with overlying cellulitis and small abscess. Unlikely necrosis, acute threat to [place], neurovascular compromise, fracture, dislocation, arterial or venous occlusion. No signs of septic joint Plan incision and drainage was done, purulent drainage expressed from the left 5th toe. Plan is to discharge patient home with antibiotics. Educated patient on diagnosis and treatment plan, answered all question, patient verbalizes understanding. At this time patient will be discharged home, advised to return with new or worsening symptoms. Educated on worrisome signs and symptoms and when to return. At this time I feel comfortable discharge home. Differential Diagnosis Differential Diagnoses: The differential diagnosis associated with the presentation includes History and physical exam concerning for paronychia with overlying cellulitis and small abscess. Unlikely necrosis, acute threat to [place], neurovascular compromise, fracture, dislocation, arterial or venous occlusion. o signs of septic joint Admission/Observation Consideration of admission/observation: Escalation of care including admission/observation considered no indication Prescription Management I considered prescription management with: Antibiotic Chronic Conditions Patient?s care impacted by: Hypertension and Other (seizure ) Critical Care Time Critical Care Time Critical Care Time: No Discharge Plan Discharge Clinical Impression: Paronychia of fifth toe Patient Disposition: Home, Self-Care Instructions: Paronychia (ED), Cellulitis (ED) Additional Instructions: Take your medications as prescribed. If you were prescribed antibiotics today, it is important that you take your medication to their entirety, do not skip any doses, do not finish them early. Follow-up with your primary care provider this week. Return to the emergency department with new or worsening symptoms. In case of emergency call 911 Prescriptions: New doxycycline hyclate 100 mg capsule 100 mg PO BID 10 Days Qty: 20 0RF bacitracin 500 unit/gram ointment 1 appl topical Q8H Qty: 14 0RF No Action topiramate 50 mg tablet 50 mg PO BID 30 Days Qty: 60 3RF topiramate [Topamax] 100 mg tablet 100 mg PO BID 90 Days Qty: 180 0RF nifedipine 30 mg tablet extended release 24hr 30 mg PO DAILY clonidine HCl 0.1 mg tablet 0.2 mg PO BEDTIME sucralfate 1 gram tablet 1 g PO TID hydroxyzine pamoate 50 mg capsule 50 - 100 mg PO BEDTIME PRN (Reason: Anxiety) lisinopril 10 mg tablet 10 mg PO DAILY aripiprazole 15 mg tablet 15 mg PO DAILY tamsulosin 0.4 mg capsule 0.4 mg PO DAILY gabapentin 300 mg capsule 300 mg PO TID albuterol sulfate [Ventolin HFA] 90 mcg/actuation HFA aerosol inhaler 2 puff inhalation Q4-6H PRN (Reason: Shortness Of Breath Or Wheezing) Referrals: Physician,Unknown J [Primary Care Provider] - 2 days Print Language: Estonian
== END 2023-12-01 18:28 | disposition home or self-care (01) ==
PROVIDERS: Emergency Provider Student in an Organized Health Care Education/Training Program
DX: L03.032 Cellulitis of left toe (principal)
CPT/HCPCS: 99281

== ENCOUNTER 2023-12-04 22:07 | Emergency (ER) | payer OTHER, SELFPAY ==
[2023-12-04 22:32] VITALS: BP 109/73; BP 128/91; PULSE 78; PULSE 88; RESP 17; TEMP 36.1; O2SAT 97; O2SAT 98; BMI 24.6
[2023-12-04 22:56] LABS: MANUAL DIFF FLAG NO
[2023-12-04 22:57] LABS: Basophils Absolute Auto 0.1 X10*3/uL (0.0-0.2); Basophils Percent Auto 1.1 % (0-2); Eosinophils Absolute Auto 0.2 X10*3/uL (0.0-0.4); Eosinophils Percent Auto 3.3 % (0-4); Hematocrit 41.7 % (42.0-52.0); Hemoglobin 14.3 g/dl (14.0-18.0); Imm Gran Abs Auto 0.02 X10*3/uL (0.00-0.03); Imm Gran Pct Auto 0.3 % (0.0-0.4); Lymphocytes Absolute Auto 1.8 X10*3/uL (1.2-4.9); Lymphocytes Percent Auto 24.7 % (20-40); Mean Corpuscular HGB Conc 34.3 g/dl (31.0-36.0); Mean Corpuscular Hemoglobin 28.9 pg (27.0-33.0); Mean Corpuscular Volume 84.2 fL (80.0-98.0); Mean Platelet Volume 9.5 fL (9.4-12.4); Monocytes Absolute Auto 0.6 X10*3/uL (0.1-1.2); Monocytes Percent Auto 7.9 % (2-11); Neutrophils Absolute Auto 4.6 x10*3/uL (2.0-8.3); Neutrophils Percent Auto 62.7 % (45-73); Platelet Count 298 X10*3/uL (160-400); Red Blood Count 4.95 X10*6/uL (4.60-5.80); Red Cell Distribution Width 13.2 % (11.0-16.0); White Blood Count 7.3 X10*3/uL (4.8-10.8)
[2023-12-04 23:00] LABS: Appearance Urine Clear; Color Urine Yellow; Glucose Urine UA Negative (Negative); Leukocyte Esterase Urine Negative (Negative); Nitrite Urine Negative (Negative); UMIC TRIGGER UA YES; Urine Blood Small (1+) (Negative); Urine Ketones Negative (Negative); Urine Protein Negative (Neg-Trace)
[2023-12-04 23:07] LABS: Amphetamine Screen Urine Not Detected (Not Detect); Barbiturates, Urine Not Detected (Not Detect); Benzodiazepines Screen Urine Not Detected (Not Detect); Buprenorphine Scr Not Detected (Not Detect); Cannabinoid Screen Urine Not Detected (Not Detect); Cocaine Screen Urine Not Detected (Not Detect); Fentanyl, urine Not Detected (Not Detect); Methadone Screen, Urine Not Detected (Not Detect); Opiate Screen Urine Not Detected (Not Detect); Oxycodone Screen Urine Not Detected (Not Detect); Phencyclidine Screen Urine Not Detected (Not Detect)
[2023-12-04 23:11] LABS: Alanine Aminotransferase 34 U/L (0-40); Alkaline Phosphatase 104 U/L (39-117); Anion Gap 16 (12-20); Aspartate Amino Transferase 30 U/L (5-37); Bacteria Urine None Seen (None Seen); Bilirubin Total 0.4 mg/dL (0.0-1.0); Blood Urea Nitrogen 16 mg/dL (9-16); Calcium 9.2 mg/dL (8.4-10.2); Carbon Dioxide 18 mmol/L (22-29); Chloride 110 mmol/L (96-108); Creatinine Clr Calc Pharmacy 88.3; Estimated Glomerular Filt Rate > 60; Ethanol 82 mg/dL; Glucose Random 106 mg/dL (60-115); Hyaline Casts Urine 0-2 /LPF (0-2); Potassium 3.2 mmol/L (3.3-5.1); RBC Urine 0-2 /HPF (0-2); Sodium 141 mmol/L (135-145); Squamous Epithelial Cell Urine 0-2 /HPF (0-2); Total Protein 7.3 g/dL (6.5-8.0); WBC Urine 0-5 /HPF (0-5)
[2023-12-04 23:13] LABS: Acetaminophen LAB < 3 mcg/mL (<30); Salicylate < 5.0 mg/dL (15-30)
--- NOTE | 2023-12-04 23:48 | ED_ITS ---
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 Patient also is dad voice voices telling him that he is going to get hurt, patient has no SI or HI. patient is talking in slurred and stuttered speech pattern and smell alcohol on breath. Related Data Home Medications ?Medication ?Instructions ?Recorded ?Confirmed albuterol sulfate 90 mcg/actuation 2 puff inhalation Q4-6H PRN 06/21/23 11/21/23 aerosol inhaler (Ventolin HFA) Shortness Of Breath Or Wheezing aripiprazole 15 mg tablet 15 mg PO DAILY 06/21/23 11/21/23 clonidine HCl 0.1 mg tablet 0.2 mg PO BEDTIME 06/21/23 11/21/23 gabapentin 300 mg capsule 300 mg PO TID 06/21/23 11/21/23 hydroxyzine pamoate 50 mg capsule 50 - 100 mg PO BEDTIME PRN Anxiety 06/21/23 11/21/23 lisinopril 10 mg tablet 10 mg PO DAILY 06/21/23 11/21/23 nifedipine 30 mg tablet,extended 30 mg PO DAILY 06/21/23 11/21/23 release 24 hr sucralfate 1 gram tablet 1 g PO TID 06/21/23 11/21/23 tamsulosin 0.4 mg capsule 0.4 mg PO DAILY 06/21/23 11/21/23 Previous Rx's ?Medication ?Instructions ?Recorded topiramate 50 mg tablet 50 mg PO BID 30 days #60 tabs 09/01/23 topiramate 100 mg tablet (Topamax) 100 mg PO BID 90 days #180 tabs 11/26/23 bacitracin 500 unit/gram topical 1 appl topical Q8H #14 grams 12/01/23 ointment doxycycline hyclate 100 mg capsule 100 mg PO BID 10 days #20 caps 12/01/23 Allergies Allergy/AdvReac Type Severity Reaction Status Date / Time amoxicillin Allergy Vomiting Verified 12/04/23 22:35 heparin Allergy Hives Verified 12/04/23 22:35 lamotrigine [From Lamictal] Allergy Hives Verified 12/04/23 22:35 levetiracetam [From Keppra] Allergy Hives Verified 12/04/23 22:35 Review of Systems 2 Review of Systems: All other systems are reviewed and are negative Constitutional: Reports as per HPI and Reports no additional constitutional complaints Eyes: Reports as per HPI and Reports no additional eye complaints Reports system reviewed and no additional complaints, except as documented Cardiovascular: Reports as per HPI and Reports no additional cardiovascular complaints Respiratory: Reports as per HPI and Reports no additional respiratory complaints Gastrointestinal: Reports as per HPI and Reports no additional gastrointestinal complaints Genitourinary: Reports no additional female genitourinary complaints Musculoskeletal: Reports no additional musculoskeletal complaints Skin/Breast: Reports system reviewed and no additional complaints, except as docu Psychiatric: Reports no additional psychiatric complaints Endocrine: Reports no additional endocrine complaints Hematologic/Lymphatic: Reports no additional hematologic/lymphatic complaints Allergic/Immunologic: Reports no additional allergic/immunologic complaints Reports system reviewed and no additional complaints, except as documented and Reports Abnormal speech present [facility] Past Medical History Medical History Essential hypertension Sleep disorder Seizure disorder Back pain Neck pain PTSD (post-traumatic stress disorder) Seizure TBI (traumatic brain injury) Bipolar 1 disorder Surgical History Hx of hernia repair Family History Family History Mother Cancer Family/Other No problems noted. Father Heart problem Social History Social History Alcohol intake: never Patient Tobacco Use Status: Former Tobacco user Use of substances other than those prescribed or required for medical reasons: No Advance Directives: No Advance Directives Information Provided: No Do you have a plan to hurt others: No Plan Physical Exam ED Vital Signs: Vital Signs - 24 hr 12/04/23 22:32 Temperature 97 F Pulse Rate 78 Respiratory Rate 17 Blood Pressure 109/73 Pulse Oximetry 97 Oxygen Delivery Method Room Air BMI result Body Mass Index 24.6 Vital signs have been reviewed and appear to be correct. Blood pressure elevated. Heart rate normal. Respiratory rate normal. Temperature normal. Oxygen saturation normal. Appearance: Alert. With alcohol on breath, speak in slurred and stutter pattern, Oriented X3. No acute distress. Head: Normal external exam. Normocephalic. Atraumatic. No Mix signs noted. No raccoon eyes noted Eyes: PERRLA. EOMI. Conjunctiva and sclera normal. Eyelids normal. ENT: TM's Normal. Pharynx normal. Uvula midline. Moist mucous membranes. No trismus noted. No drooling noted. No muffled voice noted. Neck: Normal inspection. Neck supple. FROM. No adenopathy. Thyroid Normal. No meningeal signs. No neck mass noted. CVS: Normal heart rate and rhythm. Heart sound normal. No murmurs noted. Pulses normal throughout. Respiratory: No respiratory distress. Painless inspiration. Breath sounds normal. No wheezes/rales/rhonchi noted. Chest nontender. No accessory muscle usage noted or decreased air movement noted. Abdomen: Soft and nontender. Bowel sounds normal in all 4 quadrants. No distention noted. No organomegaly noted. No visible injury noted. Back: No CVA tenderness. Full range of motion noted. Skin: Skin warm and dry. Normal skin color. Normal skin turgor. No rashes/lesions/lacerations noted. Extremities: No lower extremity edema. Extremities exhibit normal range of motion. Extremities nontender. Neuro: Oriented X 3. Cranial nerve exam: II-XII are grossly intact No motor deficit. No sensory deficit. Reflexes normal. Patient Orientation: Person, Place, Time and Situation, okay hygiene and grooming. Fair eye contact, attentive, no tics or tremors. Level of Consciousness: Awake, Appropriate and Alert Patient Behavior: Appropriate, Guarded, Cooperative and Anxious Mood Description: Constricted, Blunted and Apprehensive Affect Description: Constricted, Blunted and Apprehensive Patient Cognition Impaired: No Ability to Follow Directions: Excellent Speech Pattern: stutter and slurred speech with pressured pattern. Memory Description: Intact, Immediate Intact and Short Term Intact Hallucinations: presence of auditory hallucination. Delusions: Not Present Thought Process: Impaired due to intoxication Thought Content: positive for Intact, positive for Logical, denies Suicidal Ideation and denies Homicidal Ideation. Depressive Symptoms: Not present. Judgement and Insight: Limited but adequate. Course Reevaluation(s) Reevaluation #1: Will allow the patient to sleep and re-evaluate when he is more sober. Time: 23:54 Medical Decision Making Differential Diagnosis Differential Diagnoses: The differential diagnosis associated with the presentation includes ( Alcohol intoxication, acute psychosis, electrolyte derangement, severe anemia, drug abuse, closed head injury, RONN.) Admission/Observation Consideration of admission/observation: Escalation of care including admission/observation considered Lab Data MDM Lab Attestation statement: I reviewed the patient's lab results. 12/04/23 22:46 12/04/23 22:46 Labs: Lab Results 12/04/23 Range/Units 22:46 WBC 7.3 (4.8-10.8) X10*3/uL RBC 4.95 (4.60-5.80) X10*6/uL Hgb 14.3 (14.0-18.0) g/dl Hct 41.7 L (42.0-52.0) % MCV 84.2 (80.0-98.0) fL MCH 28.9 (27.0-33.0) pg MCHC 34.3 (31.0-36.0) g/dl RDW 13.2 (11.0-16.0) % Plt Count 298 (160-400) X10*3/uL MPV 9.5 (9.4-12.4) fL Immature Gran % (Auto) 0.3 (0.0-0.4) % Neut % (Auto) 62.7 (45-73) % Lymph % (Auto) 24.7 (20-40) % [place] % (Auto) 7.9 (2-11) % Eos % (Auto) 3.3 (0-4) % Baso % (Auto) 1.1 (0-2) % Lymph # (Auto) 1.8 (1.2-4.9) X10*3/uL [place] # (Auto) 0.6 (0.1-1.2) X10*3/uL Eos # (Auto) 0.2 (0.0-0.4) X10*3/uL Baso # (Auto) 0.1 (0.0-0.2) X10*3/uL Abs Immat Gran (auto) 0.02 (0.00-0.03) X10*3/uL Absolute Neuts (auto) 4.6 (2.0-8.3) x10*3/uL Absolute Nucleated RBC 0.000 (0.0-0.012) X10*3/uL Nucleated RBC % (auto) 0.0 (0.0-0.2) /100WBC Sodium 141 (135-145) mmol/L Potassium 3.2 L (3.3-5.1) mmol/L Chloride 110 H (96-108) mmol/L Carbon Dioxide 18 L (22-29) mmol/L Anion Gap 16 (12-20) BUN 16 (9-16) mg/dL Creatinine 0.93 (0.5-1.4) mg/dL Estim Creat Clear Calc 88.3 Estimated GFR > 60 Random Glucose 106 (60-115) mg/dL Calcium 9.2 (8.4-10.2) mg/dL Total Bilirubin 0.4 (0.0-1.0) mg/dL AST 30 (5-37) U/L ALT 34 (0-40) U/L Alkaline Phosphatase 104 (39-117) U/L Total Protein 7.3 (6.5-8.0) g/dL Albumin 4.0 (3.5-5.0) g/dL Urine Color Yellow Urine Appearance Clear Urine pH 6.0 (5.0-9.0) Ur Specific [place] 1.010 (1.005-1.025) Urine Protein Negative (Neg-Trace) mg/dL Urine Glucose (UA) Negative (Negative) mg/dL Urine Ketones Negative (Negative) mg/dL Urine Blood Small (1+) H (Negative) Urine Nitrite Negative (Negative) Ur Leukocyte Esterase Negative (Negative) Urine RBC 0-2 (0-2) /HPF Urine WBC 0-5 (0-5) /HPF Ur Squamous Epith Cells 0-2 (0-2) /HPF Urine Bacteria None Seen (None Seen) Hyaline Casts 0-2 (0-2) /LPF Salicylates < 5.0 L (15-30) mg/dL Urine Opiates Screen Not Detected (Not Detect) Ur Buprenorphine Scrn Not Detected (Not Detect) ng/mL Ur Oxycodone Screen Not Detected (Not Detect) ng/mL Urine Methadone Screen Not Detected (Not Detect) ng/mL Urine Fentanyl Screen Not Detected (Not Detect) Acetaminophen < 3 (<30) mcg/mL Ur Barbiturates Screen Not Detected (Not Detect) Ur Phencyclidine Scrn Not Detected (Not Detect) Ur Amphetamines Screen Not Detected (Not Detect) U Benzodiazepines Scrn Not Detected (Not Detect) Urine Cocaine Screen Not Detected (Not Detect) U Marijuana (THC) Screen Not Detected (Not Detect) Ethyl Alcohol 82 mg/dL Discharge Plan Discharge Clinical Impression: Alcohol intoxication, Auditory hallucination Patient Disposition: Still a Patient Prescriptions: No Action topiramate 50 mg tablet 50 mg PO BID 30 Days Qty: 60 3RF topiramate [Topamax] 100 mg tablet 100 mg PO BID 90 Days Qty: 180 0RF nifedipine 30 mg tablet extended release 24hr 30 mg PO DAILY clonidine HCl 0.1 mg tablet 0.2 mg PO BEDTIME sucralfate 1 gram tablet 1 g PO TID hydroxyzine pamoate 50 mg capsule 50 - 100 mg PO BEDTIME PRN (Reason: Anxiety) lisinopril 10 mg tablet 10 mg PO DAILY aripiprazole 15 mg tablet 15 mg PO DAILY tamsulosin 0.4 mg capsule 0.4 mg PO DAILY gabapentin 300 mg capsule 300 mg PO TID albuterol sulfate [Ventolin HFA] 90 mcg/actuation HFA aerosol inhaler 2 puff inhalation Q4-6H PRN (Reason: Shortness Of Breath Or Wheezing) doxycycline hyclate 100 mg capsule 100 mg PO BID 10 Days Qty: 20 0RF bacitracin 500 unit/gram ointment 1 appl topical Q8H Qty: 14 0RF Print Language: Mohawk
--- NOTE | 2023-12-05 01:55 | PC.NURSE ---
Pt resting quietly with eyes closed. Respirations even and unlabored.
[2023-12-05 02:37] VITALS: RESP 16
[2023-12-05 03:30] VITALS: BP 124/78; PULSE 82; RESP 18; O2SAT 98
[2023-12-05 06:15] VITALS: BP 113/77; PULSE 86; RESP 18; TEMP 37.1; O2SAT 99
--- NOTE | 2023-12-05 06:26 | PC.NURSE ---
Pt resting quietly with eyes closed. Respirations even and unlabored.
[2023-12-05] MEDS: Potassium Chloride Packet 20 MEQ PACKET 40 MEQ PO (10:07)
--- NOTE | 2023-12-05 10:21 | PC.NURSE ---
pt met with CARE team, got a breakfast tray. also medicated per MAR with PO potassium
[2023-12-05 12:49] VITALS: BP 113/77; PULSE 86; RESP 18; TEMP 37.1; O2SAT 99
== END 2023-12-05 12:30 | disposition home or self-care (01) ==
PROVIDERS: Emergency Provider Emergency Medicine
DX: F10.129 Alcohol abuse with intoxication, unspecified (principal); R44.0 Auditory hallucinations; Z79.899 Other long term (current) drug therapy; Z51.81 Encounter for therapeutic drug level monitoring
CPT/HCPCS: 36415; 80053; 80143; 80179; 80307; 81001; 81003; 85025; 99285; S9485

== ENCOUNTER 2023-12-12 00:28 | Emergency (ER) | payer OTHER, SELFPAY ==
--- NOTE | 2023-12-12 | ECG_ITS ---
Test Reason : SEIZURE Blood Pressure : / mmHG Vent. Rate : 064 BPM Atrial Rate : 064 BPM P-R Int : 142 ms QRS Dur : 092 ms QT Int : 402 ms P-R-T Axes : 000 010 011 degrees QTc Int : 414 ms Normal sinus rhythm Minimal voltage criteria for LVH, may be normal variant ( R in aVL ) Borderline ECG When compared with ECG of 26-NOV-2023 16:55, No significant change was found Referred By: Generic ED Physician Electronically Signed By:Kerwin Lynn
[2023-12-12 00:37] VITALS: BP 134/97; BP 140/70; PULSE 72; PULSE 90; RESP 17; TEMP 36.5; O2SAT 98; O2SAT 99; BMI 24.7
[2023-12-12 00:56] LABS: MANUAL DIFF FLAG NO
[2023-12-12 01:07] LABS: Basophils Absolute Auto 0.1 X10*3/uL (0.0-0.2); Eosinophils Absolute Auto 0.3 X10*3/uL (0.0-0.4); Eosinophils Percent Auto 4.2 % (0-4); Hematocrit 41.1 % (42.0-52.0); Hemoglobin 13.9 g/dl (14.0-18.0); Imm Gran Abs Auto 0.02 X10*3/uL (0.00-0.03); Imm Gran Pct Auto 0.3 % (0.0-0.4); Lactic Acid 1.2 mmol/L (0.5-2.0); Lymphocytes Absolute Auto 2.7 X10*3/uL (1.2-4.9); Lymphocytes Percent Auto 39.2 % (20-40); Mean Corpuscular HGB Conc 33.8 g/dl (31.0-36.0); Mean Corpuscular Hemoglobin 28.4 pg (27.0-33.0); Mean Platelet Volume 9.9 fL (9.4-12.4); Monocytes Absolute Auto 0.7 X10*3/uL (0.1-1.2); Monocytes Percent Auto 10.4 % (2-11); Neutrophils Absolute Auto 3.1 x10*3/uL (2.0-8.3); Neutrophils Percent Auto 44.9 % (45-73); Platelet Count 249 X10*3/uL (160-400); Red Blood Count 4.89 X10*6/uL (4.60-5.80); Red Cell Distribution Width 13.1 % (11.0-16.0); White Blood Count 6.8 X10*3/uL (4.8-10.8)
[2023-12-12 01:12] LABS: Alanine Aminotransferase 36 U/L (0-40); Albumin Level 3.8 g/dL (3.5-5.0); Alkaline Phosphatase 98 U/L (39-117); Anion Gap 13 (12-20); Aspartate Amino Transferase 32 U/L (5-37); Bilirubin Total 0.2 mg/dL (0.0-1.0); Blood Urea Nitrogen 12 mg/dL (9-16); Calcium 8.9 mg/dL (8.4-10.2); Carbon Dioxide 22 mmol/L (22-29); Chloride 108 mmol/L (96-108); Creatinine Clr Calc Pharmacy 113.7; Estimated Glomerular Filt Rate > 60; Glucose Random 104 mg/dL (60-115); Potassium 3.6 mmol/L (3.3-5.1); Sodium 139 mmol/L (135-145); Total Protein 7.1 g/dL (6.5-8.0)
--- NOTE | 2023-12-12 01:19 | ED.SEIZURE ---
HPI - Seizure General Chief Complaint: Seizure Stated Complaint: siezure Time Seen by Provider: 12/12/23 00:57 Source: patient Mode of arrival: ambulatory Limitations: no limitations History of Present Illness HPI Narrative: Patient comes to the emergency room complaining of seizures. According to the patient, he had a seizure approximately 20 hours ago. Patient reports taking 100 mg of Topamax daily. Episode, patient has no complaints. Seizure History: Yes Related Data Home Medications ?Medication ?Instructions ?Recorded ?Confirmed albuterol sulfate 90 mcg/actuation 2 puff inhalation Q4-6H PRN 06/21/23 11/21/23 aerosol inhaler (Ventolin HFA) Shortness Of Breath Or Wheezing aripiprazole 15 mg tablet 15 mg PO DAILY 06/21/23 11/21/23 clonidine HCl 0.1 mg tablet 0.2 mg PO BEDTIME 06/21/23 11/21/23 gabapentin 300 mg capsule 300 mg PO TID 06/21/23 11/21/23 hydroxyzine pamoate 50 mg capsule 50 - 100 mg PO BEDTIME PRN Anxiety 06/21/23 11/21/23 lisinopril 10 mg tablet 10 mg PO DAILY 06/21/23 11/21/23 nifedipine 30 mg tablet,extended 30 mg PO DAILY 06/21/23 11/21/23 release 24 hr sucralfate 1 gram tablet 1 g PO TID 06/21/23 11/21/23 tamsulosin 0.4 mg capsule 0.4 mg PO DAILY 06/21/23 11/21/23 Previous Rx's ?Medication ?Instructions ?Recorded topiramate 50 mg tablet 50 mg PO BID 30 days #60 tabs 09/01/23 topiramate 100 mg tablet (Topamax) 100 mg PO BID 90 days #180 tabs 11/26/23 bacitracin 500 unit/gram topical 1 appl topical Q8H #14 grams 12/01/23 ointment doxycycline hyclate 100 mg capsule 100 mg PO BID 10 days #20 caps 12/01/23 erenumab-aooe 140 mg/mL 140 mg subcut ONCE 30 days #1 mL 12/11/23 subcutaneous auto-injector (Aimovig Autoinjector) Allergies Allergy/AdvReac Type Severity Reaction Status Date / Time amoxicillin Allergy Vomiting Verified 12/12/23 00:40 heparin Allergy Hives Verified 12/12/23 00:40 lamotrigine [From Lamictal] Allergy Hives Verified 12/12/23 00:40 levetiracetam [From Keppra] Allergy Hives Verified 12/12/23 00:40 Review of Systems Review of Systems: Constitutional : No Weight loss, No Fever, No Chills, No Night Sweats, No Fatigue, No Malaise ENT/Mouth : No Hearing loss, No Ear Pain, No Nasal Congestion, No Sinus Pain, No Hoarseness, No sore throat, No Rhinorrhea, No Swallowing Difficulty Eyes: No Eye Pain, No Swelling, No Redness, No Foreign Body, No Discharge, No Vision Changes Cardiovascular : No Chest Pain, No SOB, No Dyspnea on Exertion, No Orthopnea, No Edema, No Palpitations Respiratory : No Cough, No Sputum, No Wheezing, No Smoke Exposure, No Dyspnea Gastrointestinal : No Nausea, No Vomiting, No Diarrhea, No Constipation, No abdominal Pain, No Hematochezia, No Melena Genitourinary : no irregular bleeding, No Dysuria, No Urinary Frequency, No Hematuria, No Urinary Incontinence, No Urgency, No Flank Pain, No Urinary Flow Changes, No Hesitancy Musculoskeletal : No joint pain, No Myalgias, No Joint Swelling Skin : No Skin Lesions, No rash Neuro : No Weakness, No Numbness, No Paresthesias, No Loss of Consciousness, No Dizziness, No Headache, complaining of having a seizure over 20 hours ago Psych : No Anxiety/Panic, No Depression, No SI/HI/AH/VH, No Social Issues, Heme/Lymph: No Bruising, No Bleeding,No Lymphadenopathy Endocrine : No Polyuria, No Polydipsia, No Temperature Intolerance [facility] Past Medical History Medical History Essential hypertension Sleep disorder Seizure disorder Back pain Neck pain PTSD (post-traumatic stress disorder) Seizure TBI (traumatic brain injury) Bipolar 1 disorder Surgical History Hx of hernia repair Family History Family History Mother Cancer Family/Other No problems noted. Father Heart problem Social History Social History Alcohol intake: never Patient Tobacco Use Status: Former Tobacco user Advance Directives: No Advance Directives Information Provided: No Do you have a plan to hurt others: No Plan Physical Exam Vital Signs: Vital Signs: Last Vital Signs Temp 97.7 F 12/12/23 00:37 Pulse 72 12/12/23 00:37 Resp 17 12/12/23 00:37 BP 134/97 H 12/12/23 00:37 Pulse Ox 98 12/12/23 00:37 O2 Del Method Room Air 12/12/23 00:37 BMI result Body Mass Index 24.7 Const: Other: Appearance: Alert. Oriented X3. No acute distress. Eyes: Pupils equal, round and reactive to light. ENT: Pharynx normal. Neck: Normal inspection. Neck supple. No lymph nodes noted. No crepitus CVS: Normal heart rate and rhythm. Pulses normal. Normal S1 and S2 Respiratory: No respiratory distress. Breath sounds normal. No Wheezing. No rales Abdomen: Soft and nontender. No rigidity. No distention. Skin: Skin warm and dry. Normal skin color. Normal skin turgor. Extremities: No lower extremity edema. No Lacerations. No Rash Neuro: Oriented X 3. No motor deficit. No sensory deficit. Moving all extremities. No slurred speech. CN 2 through 12 grossly intact Psych: calm, cooperative, normal affect Medications Administered Discontinued Medications Generic Name Dose Route Start Last Admin Trade Name Freq PRN Reason Stop Dose Admin Topiramate 100 mg 12/12/23 01:16 12/12/23 01:33 Topiramate 100 Mg Tablet PO 12/12/23 01:17 100 mg ONCE ONE Administration Medical Decision Making Medical Decision Making [facility] Narrative: -my interpretation of labs: Patient's hematology within normal limits, chemistry within normal limits, lactic acid normal. Troponin negative. -patient was given an additional dose of Topamax 100 mg. Labs have been sent for Topamax level. They will be a send out, will return in several days. -records have been requested from [facility] regarding patient's last EEG results -whenever received the records from the EEG from [facility]. However, patient's labs show normal hematology, chemistry, lactic acid, unclear if patient actually had a tonic-clonic seizure, versus pseudo-seizure. Patient was given an additional dose of Topamax, patient will follow-up with his neurologist. -Topamax levels pending, it will be a few days until it becomes available for patient's neurologist -here in the emergency room, patient was alert and oriented x3 the whole time, not postictal, no seizure-like activity Differential Diagnosis Differential Diagnoses: The differential diagnosis associated with the presentation includes (Tonic-clonic Seizures, so seizures, focal seizures) Admission/Observation Consideration of admission/observation: Escalation of care including admission/observation considered (Given patient's recurrent seizures, observation/admission considered.) Lab Data MDM Lab Attestation statement: I reviewed the patient's lab results. 12/12/23 00:51 12/12/23 00:51 Labs: Lab Results 12/12/23 Range/Units 00:51 WBC 6.8 (4.8-10.8) X10*3/uL RBC 4.89 (4.60-5.80) X10*6/uL Hgb 13.9 L (14.0-18.0) g/dl Hct 41.1 L (42.0-52.0) % MCV 84.0 (80.0-98.0) fL MCH 28.4 (27.0-33.0) pg MCHC 33.8 (31.0-36.0) g/dl RDW 13.1 (11.0-16.0) % Plt Count 249 (160-400) X10*3/uL MPV 9.9 (9.4-12.4) fL Immature Gran % (Auto) 0.3 (0.0-0.4) % Neut % (Auto) 44.9 L (45-73) % Lymph % (Auto) 39.2 (20-40) % Cache % (Auto) 10.4 (2-11) % Eos % (Auto) 4.2 H (0-4) % Baso % (Auto) 1.0 (0-2) % Lymph # (Auto) 2.7 (1.2-4.9) X10*3/uL Cache # (Auto) 0.7 (0.1-1.2) X10*3/uL Eos # (Auto) 0.3 (0.0-0.4) X10*3/uL Baso # (Auto) 0.1 (0.0-0.2) X10*3/uL Abs Immat Gran (auto) 0.02 (0.00-0.03) X10*3/uL Absolute Neuts (auto) 3.1 (2.0-8.3) x10*3/uL Absolute Nucleated RBC 0.000 (0.0-0.012) X10*3/uL Nucleated RBC % (auto) 0.0 (0.0-0.2) /100WBC Sodium 139 (135-145) mmol/L Potassium 3.6 (3.3-5.1) mmol/L Chloride 108 (96-108) mmol/L Carbon Dioxide 22 (22-29) mmol/L Anion Gap 13 (12-20) BUN 12 (9-16) mg/dL Creatinine 0.81 (0.5-1.4) mg/dL Estim Creat Clear Calc 113.7 Estimated GFR > 60 Random Glucose 104 (60-115) mg/dL Lactic Acid 1.2 (0.5-2.0) mmol/L Calcium 8.9 (8.4-10.2) mg/dL Total Bilirubin 0.2 (0.0-1.0) mg/dL AST 32 (5-37) U/L ALT 36 (0-40) U/L Alkaline Phosphatase 98 (39-117) U/L Troponin I High Sens < 2.7 (<3.5-35.0) ng/L Total Protein 7.1 (6.5-8.0) g/dL Albumin 3.8 (3.5-5.0) g/dL Ethyl Alcohol < 10 mg/dL Critical Care Time Critical Care Time Critical Care Time: Yes Total Critical Care Time: 35 Attestation: I have personally provided critical care time. Time includes review of lab data, radiology results, discussion with consultants, and monitoring for potential decompensation. Intervention performed as documented. Discharge Plan Discharge Clinical Impression: Seizures Patient Disposition: Home, Self-Care Instructions: Recurrent Seizures in Adults (ED) Additional Instructions: Please follow-up with your primary care physician tomorrow. If you have any worsening or new symptoms, please return to the emergency room or call 911 Prescriptions: No Action topiramate 50 mg tablet 50 mg PO BID 30 Days Qty: 60 3RF Aimovig Autoinjector 140 mg/mL auto-injector 140 mg subcut ONCE 30 Days Qty: 1 6RF topiramate [Topamax] 100 mg tablet 100 mg PO BID 90 Days Qty: 180 0RF nifedipine 30 mg tablet extended release 24hr 30 mg PO DAILY clonidine HCl 0.1 mg tablet 0.2 mg PO BEDTIME sucralfate 1 gram tablet 1 g PO TID hydroxyzine pamoate 50 mg capsule 50 - 100 mg PO BEDTIME PRN (Reason: Anxiety) lisinopril 10 mg tablet 10 mg PO DAILY aripiprazole 15 mg tablet 15 mg PO DAILY tamsulosin 0.4 mg capsule 0.4 mg PO DAILY gabapentin 300 mg capsule 300 mg PO TID albuterol sulfate [Ventolin HFA] 90 mcg/actuation HFA aerosol inhaler 2 puff inhalation Q4-6H PRN (Reason: Shortness Of Breath Or Wheezing) doxycycline hyclate 100 mg capsule 100 mg PO BID 10 Days Qty: 20 0RF bacitracin 500 unit/gram ointment 1 appl topical Q8H Qty: 14 0RF Print Language: Belarusian
[2023-12-12 01:23] LABS: Troponin-I High Sensitivity < 2.7 ng/L (<3.5-35.0)
[2023-12-12] MEDS: Topiramate 100 MG TABLET PO (01:33)
[2023-12-12 01:48] LABS: Ethanol < 10 mg/dL
[2023-12-12 02:23] VITALS: BP 121/83; PULSE 64; RESP 19; TEMP 36.5; O2SAT 97
[2023-12-12 02:31] VITALS: BP 121/83; PULSE 64; RESP 19; TEMP 36.5; O2SAT 97
[2023-12-12 02:39] LABS: Amphetamine Screen Urine Not Detected (Not Detect); Barbiturates, Urine Not Detected (Not Detect); Benzodiazepines Screen Urine Not Detected (Not Detect); Buprenorphine Scr Not Detected (Not Detect); Cannabinoid Screen Urine Not Detected (Not Detect); Cocaine Screen Urine POSITIVE (Not Detect); Fentanyl, urine Not Detected (Not Detect); Methadone Screen, Urine Not Detected (Not Detect); Opiate Screen Urine Not Detected (Not Detect); Oxycodone Screen Urine Not Detected (Not Detect); Phencyclidine Screen Urine Not Detected (Not Detect)
[2023-12-17 18:57] LABS: Topiramate <0.5 mcg/mL (see note)
== END 2023-12-12 02:38 | disposition home or self-care (01) ==
PROVIDERS: Emergency Provider Emergency Medicine; PCP Internal Medicine
DX: R56.9 Unspecified convulsions (principal); R94.31 Abnormal electrocardiogram [ECG] [EKG]; Z79.899 Other long term (current) drug therapy
CPT/HCPCS: 36415; 80053; 80201; 80307; 83605; 84484; 85025; 93005; 99284

== ENCOUNTER → 2023-12-12 01:13 | Outpatient (BNV) | payer OTHER, SELFPAY | PROVIDERS: Emergency Provider Emergency Medicine; PCP Internal Medicine; Visit Provider Internal Medicine Cardiovascular Disease | DX: R56.9 Unspecified convulsions (principal) | CPT/HCPCS: 93010 ==

== ENCOUNTER → 2023-12-17 10:13 | Outpatient (BNVA) | payer OTHER, SELFPAY | PROVIDERS: PCP Internal Medicine; Visit Provider Nurse Practitioner Family ==

== ENCOUNTER 2023-12-18 20:40 | Emergency (ER) | payer OTHER, SELFPAY ==
[2023-12-18 20:52] VITALS: BP 146/92; PULSE 79; O2SAT 97
[2023-12-18 21:03] VITALS: BP 113/79; PULSE 78; RESP 18; TEMP 36.6; O2SAT 98; BMI 27.5
--- NOTE | 2023-12-18 21:47 | ED_ITS ---
HPI - Anxiety General Chief Complaint: Anxiety Stated Complaint: ANXIETY Time Seen by Provider: 12/18/23 21:28 Source: patient Mode of arrival: EMS Limitations: no limitations History of Present Illness HPI narrative: Patient history of anxiety comes here for increased anxiety due to patient has to move from his house denies any significant depression or SI Related Data Home Medications ?Medication ?Instructions ?Recorded ?Confirmed albuterol sulfate 90 mcg/actuation 2 puff inhalation Q4-6H PRN 06/21/23 11/21/23 aerosol inhaler (Ventolin HFA) Shortness Of Breath Or Wheezing aripiprazole 15 mg tablet 15 mg PO DAILY 06/21/23 11/21/23 clonidine HCl 0.1 mg tablet 0.2 mg PO BEDTIME 06/21/23 11/21/23 gabapentin 300 mg capsule 300 mg PO TID 06/21/23 11/21/23 hydroxyzine pamoate 50 mg capsule 50 - 100 mg PO BEDTIME PRN Anxiety 06/21/23 11/21/23 lisinopril 10 mg tablet 10 mg PO DAILY 06/21/23 11/21/23 nifedipine 30 mg tablet,extended 30 mg PO DAILY 06/21/23 11/21/23 release 24 hr sucralfate 1 gram tablet 1 g PO TID 06/21/23 11/21/23 tamsulosin 0.4 mg capsule 0.4 mg PO DAILY 06/21/23 11/21/23 Previous Rx's ?Medication ?Instructions ?Recorded topiramate 50 mg tablet 50 mg PO BID 30 days #60 tabs 09/01/23 topiramate 100 mg tablet (Topamax) 100 mg PO BID 90 days #180 tabs 11/26/23 bacitracin 500 unit/gram topical 1 appl topical Q8H #14 grams 12/01/23 ointment doxycycline hyclate 100 mg capsule 100 mg PO BID 10 days #20 caps 12/01/23 fremanezumab-vfrm 225 mg/1.5 mL 225 mg (1.5 mL) subcut ONCE 30 12/15/23 subcutaneous auto-injector (Ajovy) days #1.5 mL Allergies Allergy/AdvReac Type Severity Reaction Status Date / Time amoxicillin Allergy Vomiting Verified 12/18/23 21:05 heparin Allergy Hives Verified 12/18/23 21:05 lamotrigine [From Lamictal] Allergy Hives Verified 12/18/23 21:05 levetiracetam [From Keppra] Allergy Hives Verified 12/18/23 21:05 Review of Systems Review of Systems: Yes all other systems are reviewed and are negative [facility] Past Medical History Medical History Essential hypertension Sleep disorder Seizure disorder Back pain Neck pain PTSD (post-traumatic stress disorder) Seizure TBI (traumatic brain injury) Bipolar 1 disorder Surgical History Hx of hernia repair Family History Family History Mother Cancer Family/Other No problems noted. Father Heart problem Social History Social History Alcohol intake: current Alcohol intake frequency: a few times a month Alcohol type: wine Patient Tobacco Use Status: Former Tobacco user Smoked in Last 30 Days: No Use of substances other than those prescribed or required for medical reasons: No Advance Directives: No Advance Directives Information Provided: No Do you have a plan to hurt others: No Plan Physical Exam Vital Signs: Vital Signs: Last Vital Signs Temp 97.8 F 12/18/23 22:01 Pulse 78 12/18/23 22:01 Resp 18 12/18/23 22:01 BP 113/79 12/18/23 22:01 Pulse Ox 98 12/18/23 22:01 O2 Del Method Room Air 12/18/23 22:01 BMI result Body Mass Index 27.5 Appearance: Alert. Oriented X3. No acute distress. ENT: Pharynx normal. Oral Mucosa moist Neck: Normal inspection. Neck supple. CVS: Normal heart rate and rhythm. Pulses normal. Respiratory: No respiratory distress. Equal air entry bilateral, Abdomen: Soft and nontender. Bowel sounds are present, Skin: Skin warm and dry. Normal skin color. Normal skin turgor. Extremities: No lower extremity edema. No calf tenderness Neuro: Oriented X 3. Medications Administered Discontinued Medications Generic Name Dose Route Start Last Admin Trade Name Freq PRN Reason Stop Dose Admin Lorazepam 1 mg 12/18/23 21:51 12/18/23 22:00 Lorazepam 1 Mg Tablet PO 12/18/23 21:52 1 mg ONCE ONE Administration Medical Decision Making Medical Decision Making MDM Narrative: Patient with anxiety has medications at home will give a dose of Ativan discharge patient home denies any need for care team evaluation feels safe at home Discharge Plan Discharge Clinical Impression: Anxiety Patient Disposition: Home, Self-Care Instructions: Anxiety (ED) Additional Instructions: Taking medication as prescribed by a therapist and follow with your psychiatrist Prescriptions: No Action topiramate 50 mg tablet 50 mg PO BID 30 Days Qty: 60 3RF Ajovy Autoinjector 225 mg/1.5 mL auto-injector 225 mg subcut ONCE 30 Days Qty: 1.5 6RF Rx Instructions: administer 225mg sc q month topiramate [Topamax] 100 mg tablet 100 mg PO BID 90 Days Qty: 180 0RF nifedipine 30 mg tablet extended release 24hr 30 mg PO DAILY clonidine HCl 0.1 mg tablet 0.2 mg PO BEDTIME sucralfate 1 gram tablet 1 g PO TID hydroxyzine pamoate 50 mg capsule 50 - 100 mg PO BEDTIME PRN (Reason: Anxiety) lisinopril 10 mg tablet 10 mg PO DAILY aripiprazole 15 mg tablet 15 mg PO DAILY tamsulosin 0.4 mg capsule 0.4 mg PO DAILY gabapentin 300 mg capsule 300 mg PO TID albuterol sulfate [Ventolin HFA] 90 mcg/actuation HFA aerosol inhaler 2 puff inhalation Q4-6H PRN (Reason: Shortness Of Breath Or Wheezing) doxycycline hyclate 100 mg capsule 100 mg PO BID 10 Days Qty: 20 0RF bacitracin 500 unit/gram ointment 1 appl topical Q8H Qty: 14 0RF Interventions: ED Discharge Assessment Last Done: 12/18/23 22:01 Discharge Date/Time: 12/18/23 22:02 Print Language: Turkmen
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
[2023-12-18] MEDS: LORazepam 1 MG TABLET PO (22:00)
[2023-12-18 22:01] VITALS: BP 113/79; PULSE 78; RESP 18; TEMP 36.6; O2SAT 98
== END 2023-12-18 22:02 | disposition home or self-care (01) ==
PROVIDERS: Emergency Provider Internal Medicine
DX: F41.9 Anxiety disorder, unspecified (principal); I10 Essential (primary) hypertension; G40.909 Epilepsy, unspecified, not intractable, without status epilepticus
CPT/HCPCS: 99283; 99284

== ENCOUNTER 2023-12-23 09:40 | Outpatient (AMB) | payer OTHER, SELFPAY ==
--- NOTE | 2023-12-23 10:05 | MHC.OFFVIS ---
Intake Visit Reasons: overactive bladder Intake Note: New Patient presents for initial visit for [facility] Urology Medications: tamsulosin Blood Thinner: none PVR: 90ml's Personal Assistant Required: No Accompanied by: Self / Same As Patient Allergies amoxicillin Allergy (Verified 12/23/23 10:32) Vomiting heparin Allergy (Verified 12/23/23 10:32) Hives lamotrigine [From Lamictal] Allergy (Verified 12/23/23 10:32) Hives levetiracetam [From Keppra] Allergy (Verified 12/23/23 10:32) Hives Medication List - Last Reconciled 12/23/23 by CYNDIE Ruiz-BC albuterol sulfate 90 mcg/actuation (Ventolin HFA) 2 puffs inhalation Q4-6H PRN aripiprazole 15 mg PO DAILY bacitracin 1 appl topical Q8H clonidine HCl 0.2 mg PO BEDTIME fremanezumab-vfrm (Ajovy) 225 mg (1.5 mL) subcut ONCE 30 days gabapentin 300 mg PO TID hydroxyzine pamoate 50 - 100 mg PO BEDTIME PRN lisinopril 10 mg PO DAILY nifedipine ER 30 mg PO DAILY sucralfate 1 g PO TID tamsulosin 0.4 mg PO DAILY topiramate (Topamax) 100 mg PO BID 90 days topiramate 50 mg PO BID 30 days HPI Comments Details: Van is a very pleasant 37-year-old male patient of Dr. Shepard. He has a past medical history of hypertension, sleep disorder, seizure disorder, PTSD, TBI, and bipolar. He presents to the office today as a new patient for urinary frequency and incontinence. In discussion with the patient today he reports every time he has a seizure he notes urinary incontinence. He also reports noting increased urinary frequency. He reports feeling he uses the bathroom frequently. However he reports large amounts of voids. In office urinalysis results reviewed with the patient today pH 9.0 specific gravity 1.005. PVR 90 mLs. He reports being on Flomax prescribed by PCP and has not felt this to be helpful. He otherwise denies hematuria, dysuria, foul smelling urine, changes to urinary stream, flank pain, fever, and or chills. Discussed at length potential causes of lower urinary tract symptoms patient is experiencing. Will obtain BMP and retroperitoneal ultrasound. Discussed bladder diary. He otherwise offers no other issues or concerns at this time. [facility] Medical History Essential hypertension Sleep disorder Seizure disorder Back pain Neck pain PTSD (post-traumatic stress disorder) Seizure TBI (traumatic brain injury) Bipolar 1 disorder Surgical History Hx of hernia repair Family History Mother Cancer Family/Other No problems noted. Father Heart problem Social History Alcohol intake: current Alcohol intake frequency: a few times a month Alcohol type: wine Patient Tobacco Use Status: Former Tobacco user Review of Systems Const Reports no additional complaints Eyes Reports no additional complaints ENT Reports no additional complaints Card Reports as per HPI Resp Reports no additional complaints GI Reports no additional complaints Reports as per HPI Musc Reports no additional complaints Neuro Reports as per HPI Psych Reports as per HPI Endo Reports no additional complaints Garrett/Lymph Reports no additional complaints Aller/Immun Reports no additional complaints Physical Exam Const General: cooperative, healthy appearing, comfortable, no acute distress, well developed, alert and awake Orientation/consciousness: patient oriented x3 Limitations: no limitations HEENT Head: Yes normal to inspection, Yes normocephalic and Yes atraumatic Ears: hearing grossly normal bilaterally Eyes General: appearance normal, both eyes and all related structures Neck Neck: Yes normal visual inspection and Yes trachea midline Chest Chest palpation & inspection: normal inspection of the chest Resp Effort & Inspection: normal respiratory effort and able to speak in complete sentences Cardio Rate: regular rate GI Inspection: Yes normal to inspection General: Yes no CVA tenderness Back/Spine/Pelvis Back: no CVA tenderness Skin General skin exam: no rashes or lesions noted Neuro General: patient oriented x3 Extrem General: Yes normal to inspection Psych Appearance: grossly normal and well kempt Mental Status: mental status grossly normal Speech and movement: Normal speech and movement present and Clear speech present Affect: normal affect Attitude: cooperative Thought process: Normal thought process present and Other thought process findings present (disfluency ) Thought content: Normal thought content present Insight: Fair insight present (Psych) Judgement: Fair judgement present (Psych) Office Procedures Post Void Residual Post Residual Void Post Void Residual (PVR): 90 [id number] Void Residual by ultrasound Results AMB Urinalysis, Automated UA Leukoctes 0 Shaun/uL Last Edit by Celia Romeo on 12/23/23 10:14 UA Nitrite Last Edit by Celia Romeo on 12/23/23 10:14 UA Urobilinogen 0.2 mg/dL Last Edit by Celia Eastman on 12/23/23 10:14 UA Protein 30 mg/dL Last Edit by [employer] Eastman on 12/23/23 10:14 UA pH 9.0 Last Edit by [employer] Eastman on 12/23/23 10:14 UA Blood 0 Thuan/uL Last Edit by [employer] on 12/23/23 10:14 UA Specific [place] 1.005 Last Edit by [employer] Eastman on 12/23/23 10:14 UA Ketone Negative Last Edit by [employer] Eastman on 12/23/23 10:14 UA Bilirubin 0 mg/dL Last Edit by [employer] Eastman on 12/23/23 10:14 UA Glucose 0 mg/dL Last Edit by [employer] on 12/23/23 10:14 Results Reviewed Results Reviewed: Laboratory Last Values Urine pH (Auto) 9.0 12/23/23 10:07 Specific [place] (Auto) 1.005 12/23/23 10:07 Urine Protein (Auto) 30 mg/dL 12/23/23 10:07 Glucose (UA)(Auto) 0 mg/dL 12/23/23 10:07 Urine Ketones (Auto) Negative 12/23/23 10:07 Urine Blood (Auto) 0 Thuan/uL 12/23/23 10:07 Urine Bilirubin (Auto) 0 mg/dL 12/23/23 10:07 Urine Urobilinogen (Auto) 0.2 mg/dL 12/23/23 10:07 Leukocyte Esterase (Auto) 0 Shaun/uL 12/23/23 10:07 Assessment & Plan Assessment & Plan (1) Urinary incontinence: Code(s): R32 - Unspecified urinary incontinence Category: Medical (2) Frequency of urination and polyuria: Code(s): R35.0 - Frequency of micturition; R35.89 - Other polyuria Category: Medical Plan In office urinalysis results reviewed with the patient today; as noted above. PVR 90 mL. Discussed at length potential causes for lower urinary tract symptoms patient is experiencing. Discussed bladder diary; urine hat provided. Will obtain BMP for further assessment evaluation. Will obtain retroperitoneal ultrasound for further assessment evaluation. Follow up in 1-3 months with labs and imaging to be completed prior. Orders: Orders AMB Urinalysis Automated Today Z13.9 - Encounter for screening, unspecified AMB Post Void Residual by ultrasound Today Z13.9 - Encounter for screening, unspecified US retroperitoneal comp Today R32 - Unspecified urinary incontinence Basic Metabolic Panel Today R32 - Unspecified urinary incontinence Patient Instructions: The patient had an opportunity to ask questions regarding the treatment plan. All questions were answered. Physical exam, labs, and imaging were discussed and reviewed in detail. As well as risks, benefits, and discussion of treatment choices. No major barriers to understanding were identified. The patient expressed understanding and agreement with the above treatment plan. The patient was made aware they should contact our office by phone for worsening of their current condition, the appearance of new symptoms, or with any questions or concerns. Compliance is encouraged with any medications and follow up testing that is ordered. It is a privilege to be allowed the opportunity to participate in? your urological care.? Again, if you have any questions or concerns If you have any questions or concerns please do not hesitate to contact me. The office is [phone]. This note is constructed using voice recognition software. While every effort has been made to ensure accuracy medical scientific officer errors may have been included. Yours sincerely, SANA Ruiz Coding Level of Care Code New Pt Level 3 (28963) Diagnoses Urinary incontinence R32 Frequency of urination and polyuria R35.0; R35.89 CPT Codes Post Residual Void - PVR CPT Code: 29922-Dsxx Void Residual by ultrasound ([id number])
== END 2023-12-23 10:36 | disposition home or self-care (01) ==
PROVIDERS: PCP Internal Medicine; Visit Provider Nurse Practitioner Family
DX: R32 Unspecified urinary incontinence (principal); R35.0 Frequency of micturition; R35.89 Other polyuria; Z13.9 Encounter for screening, unspecified
CPT/HCPCS: 99203

== ENCOUNTER → 2023-12-23 09:40 | Outpatient (BNVA) | payer OTHER, SELFPAY | PROVIDERS: PCP Internal Medicine; Visit Provider Nurse Practitioner Family | DX: R32 Unspecified urinary incontinence (principal); R35.0 Frequency of micturition; R35.89 Other polyuria | CPT/HCPCS: 51798; 81003; 99202 ==

== ENCOUNTER 2024-02-11 12:18 | Outpatient (REF) | payer OTHER, SELFPAY ==
--- NOTE | ~2024-02-11 | US_ITS ---
EXAMINATION: US RETROPERITONEAL COMPLETE (RENAL) CLINICAL INFORMATION: Unspecified urinary incontinence. COMPARISON: None available. TECHNIQUE: Real-time imaging of the kidneys and bladder. FINDINGS: RIGHT KIDNEY: 10.8 x 5.8 x 5.3 cm (SAG x AP x TRV). The kidney is normal in size, contour, and echogenicity. Renal cortical thickness is normal. No renal calculi or hydronephrosis. A benign mid renal 0.8 cm Bosniak class I renal cyst is noted which requires no additional imaging or follow up. No solid renal masses are seen. LEFT KIDNEY: 12.3 x 6.2 x 4.5 cm (SAG x AP x TRV). The kidney is normal in size, contour, and echogenicity. Renal cortical thickness is normal. No calculi or focal parenchymal lesions. No hydronephrosis. BLADDER: Well distended and normal. Bilateral ureteral jets are demonstrated. Prevoid bladder volume is 523.2 mL. Postvoid bladder volume is 12.7 mL. ADDITIONAL FINDINGS: Prostate is normal volume at 26.5 mL. US/US retroperitoneal comp IMPRESSION: Negative exam.
== END 2024-02-11 12:19 | disposition home or self-care (01) ==
LOC: HO.US 12:18
PROVIDERS: PCP Internal Medicine; Visit Provider Nurse Practitioner Family
DX: R32 Unspecified urinary incontinence (principal)
CPT/HCPCS: 76770

== ENCOUNTER 2024-03-02 10:33 | Outpatient (AMB) | payer OTHER, SELFPAY ==
--- NOTE | 2024-03-02 11:27 | MHC.OFFVIS ---
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 Accompanied by: Self / Same As Patient Allergies amoxicillin Allergy (Verified 12/23/23 10:32) Vomiting heparin Allergy (Verified 12/23/23 10:32) Hives lamotrigine [From Lamictal] Allergy (Verified 12/23/23 10:32) Hives levetiracetam [From Keppra] Allergy (Verified 12/23/23 10:32) Hives Medication List - Last Reconciled 03/02/24 by CYNDIE Ruiz-VASILIY albuterol sulfate 90 mcg/actuation (Ventolin HFA) 2 puffs inhalation Q4-6H PRN aripiprazole 15 mg PO DAILY bacitracin 1 appl topical Q8H clonidine HCl 0.2 mg PO BEDTIME diclofenac potassium 50 mg PO BID PRN 30 days fremanezumab-vfrm (Ajovy) 225 mg (1.5 mL) subcut ONCE 30 days gabapentin 300 mg PO TID 30 days hydroxyzine pamoate 50 - 100 mg PO BEDTIME PRN lisinopril 10 mg PO DAILY nifedipine ER 30 mg PO DAILY sucralfate 1 g PO TID sumatriptan succinate 50 - 100 mg orally at onset of headache, may repeat in 2 hrs PRN; max 2 tabs per day or 4 tabs/week (may take with Ibuprofen or Tylenol) 30 days tamsulosin 0.4 mg PO DAILY topiramate (Topamax) 100 mg PO BID 90 days topiramate 50 mg PO BID 30 days HPI Comments Details: Van is a very pleasant 38-year-old male patient of Dr. Shepard was accompanied by retirement member/worker. He has a past medical history of hypertension, sleep disorder, seizure disorder, PTSD, TBI, and bipolar. He presents to the office today for follow-up. Of note, patient was seen approximately 2 months ago as a new patient for urinary frequency at which time a retroperitoneal ultrasound was ordered for further assessment evaluation and the patient was given a urinal to bladder diary. In discussion with the patient today he reports since his last office visit here he was unable to bladder diary as he has since moved to a retirement. He does report feeling lower urinary tract symptoms of urinary frequency and nocturia have somewhat improved however with daily dosing of Flomax as prescribed however he does continue with episodes of urinary frequency and nocturia up to 4 times per night. He does endorse to drinking increased amounts of fluids throughout the day as well as prior to bed. Discussed importance of bladder diary for further assessment evaluation. Recent retroperitoneal ultrasound results reviewed with the patient today. Bilateral kidneys with no calculi or hydronephrosis. A benign mid renal 0.8 cm Bosniak class 1 renal cyst is noted which requires no additional follow-up per radiology report. The bladder is well distended and normal. Bilateral ureteral jets are demonstrated. Pre void bladder volume is approximately 525 mL. Postvoid bladder volume is approximately 15 mL. Prostate is of normal volume at 26.5 mL. In office urinalysis results reviewed with the patient today. PVR 24 mL. He otherwise denies hematuria, dysuria, foul smelling urine, changes to urinary stream, flank pain, fever, and or chills. Discussed at length potential causes of lower urinary tract symptoms patient is experiencing. He otherwise offers no other issues or concerns at this time. [facility] Medical History Essential hypertension Sleep disorder Seizure disorder Back pain Neck pain PTSD (post-traumatic stress disorder) Seizure TBI (traumatic brain injury) Bipolar 1 disorder Surgical History Hx of hernia repair Family History Mother Cancer Family/Other No problems noted. Father Heart problem Social History Alcohol intake: current Alcohol intake frequency: a few times a month Alcohol type: wine Patient Tobacco Use Status: Former Tobacco user Review of Systems Const Reports no additional complaints Eyes Reports no additional complaints ENT Reports no additional complaints Card Reports as per HPI Resp Reports no additional complaints GI Reports no additional complaints Reports as per HPI Musc Reports no additional complaints Neuro Reports as per HPI Psych Reports as per HPI Endo Reports no additional complaints Garrett/Lymph Reports no additional complaints Aller/Immun Reports no additional complaints Physical Exam Const General: cooperative, healthy appearing, comfortable, no acute distress, well developed, alert and awake Orientation/consciousness: patient oriented x3 Limitations: no limitations HEENT Head: Yes normal to inspection, Yes normocephalic and Yes atraumatic Ears: hearing grossly normal bilaterally Eyes General: appearance normal, both eyes and all related structures Neck Neck: Yes normal visual inspection and Yes trachea midline Chest Chest palpation & inspection: normal inspection of the chest Resp Effort & Inspection: normal respiratory effort and able to speak in complete sentences Cardio Rate: regular rate GI Inspection: Yes normal to inspection General: Yes no CVA tenderness Back/Spine/Pelvis Back: no CVA tenderness Skin General skin exam: no rashes or lesions noted Neuro General: patient oriented x3 Extrem General: Yes normal to inspection Psych Appearance: grossly normal and well kempt Mental Status: mental status grossly normal Speech and movement: Normal speech and movement present and Clear speech present Affect: normal affect Attitude: cooperative Thought process: Normal thought process present and Other thought process findings present (disfluency ) Thought content: Normal thought content present Insight: Fair insight present (Psych) Judgement: Fair judgement present (Psych) Office Procedures Post Void Residual Post Residual Void Post Void Residual (PVR): 24 [id number] Void Residual by ultrasound Results AMB Urinalysis, Automated UA Leukoctes 0 Shaun/uL Last Edit by [employer] on 03/02/24 12:03 UA Nitrite Negative Last Edit by [employer] on 03/02/24 12:03 UA Urobilinogen 0.2 mg/dL Last Edit by [employer] on 03/02/24 12:03 UA Protein 0 mg/dL Last Edit by [employer] on 03/02/24 12:03 UA pH 7.0 Last Edit by [employer] on 03/02/24 12:03 UA Blood 0 Thuan/uL Last Edit by [employer] on 03/02/24 12:03 UA Specific [place] 1.005 Last Edit by [employer] on 03/02/24 12:03 UA Ketone Negative Last Edit by [employer] on 03/02/24 12:03 UA Bilirubin 0 mg/dL Last Edit by [employer] on 03/02/24 12:03 UA Glucose 0 mg/dL Last Edit by [employer] on 03/02/24 12:03 Results Reviewed Results Reviewed: Laboratory Last Values Urine pH (Auto) 7.0 03/02/24 11:55 Specific [place] (Auto) 1.005 03/02/24 11:55 Urine Protein (Auto) 0 mg/dL 03/02/24 11:55 Glucose (UA)(Auto) 0 mg/dL 03/02/24 11:55 Urine Ketones (Auto) Negative 03/02/24 11:55 Urine Blood (Auto) 0 Thuan/uL 03/02/24 11:55 Urine Nitrite (Auto) Negative 03/02/24 11:55 Urine Bilirubin (Auto) 0 mg/dL 03/02/24 11:55 Urine Urobilinogen (Auto) 0.2 mg/dL 03/02/24 11:55 Leukocyte Esterase (Auto) 0 Shaun/uL 03/02/24 11:55 Date of Service: 02/11/24 EXAMINATION: US RETROPERITONEAL COMPLETE (RENAL) FINDINGS: RIGHT KIDNEY: 10.8 x 5.8 x 5.3 cm (SAG x AP x TRV). The kidney is normal in size, contour, and echogenicity. Renal cortical thickness is normal. No renal calculi or hydronephrosis. A benign mid renal 0.8 cm Bosniak class I renal cyst is noted which requires no additional imaging or follow up. No solid renal masses are seen. LEFT KIDNEY: 12.3 x 6.2 x 4.5 cm (SAG x AP x TRV). The kidney is normal in size, contour, and echogenicity. Renal cortical thickness is normal. No calculi or focal parenchymal lesions. No hydronephrosis. BLADDER: Well distended and normal. Bilateral ureteral jets are demonstrated. Prevoid bladder volume is 523.2 mL. Postvoid bladder volume is 12.7 mL. ADDITIONAL FINDINGS: Prostate is normal volume at 26.5 mL. IMPRESSION: Negative exam. Assessment & Plan Assessment & Plan (1) Urinary incontinence: Code(s): R32 - Unspecified urinary incontinence Category: Medical (2) Frequency of urination and polyuria: Code(s): R35.0 - Frequency of micturition; R35.89 - Other polyuria Category: Medical Plan In office urinalysis results reviewed with the patient today; as noted above. PVR 24 mL. Recent retroperitoneal ultrasound results reviewed with the patient today; as noted above Discussed at length potential causes for lower urinary tract symptoms patient is experiencing. Discussed bladder diary; urinal provided. Continue Flomax as discussed and prescribed. Discussed importance of limiting fluids 2-3 hours prior to bed to decrease episodes of nocturia. Follow up in 1-3 months with labs and imaging to be completed prior. Orders: Orders AMB Urinalysis Automated Today Z13.9 - Encounter for screening, unspecified AMB Post Void Residual by ultrasound Today R32 - Unspecified urinary incontinence Patient Instructions: The patient had an opportunity to ask questions regarding the treatment plan. All questions were answered. Physical exam, labs, and imaging were discussed and reviewed in detail. As well as risks, benefits, and discussion of treatment choices. No major barriers to understanding were identified. The patient expressed understanding and agreement with the above treatment plan. The patient was made aware they should contact our office by phone for worsening of their current condition, the appearance of new symptoms, or with any questions or concerns. Compliance is encouraged with any medications and follow up testing that is ordered. It is a privilege to be allowed the opportunity to participate in? your urological care.? Again, if you have any questions or concerns If you have any questions or concerns please do not hesitate to contact me. The office is [phone]. This note is constructed using voice recognition software. While every effort has been made to ensure accuracy inspectors and regulatory officers errors may have been included. Yours sincerely, SANA Ruiz Coding Level of Care Code Est Pt Level 3 (29105) Diagnoses Urinary incontinence R32 Frequency of urination and polyuria R35.0; R35.89 CPT Codes Post Residual Void - PVR CPT Code: 81867-[id number] Void Residual by ultrasound ([id number])
== END 2024-03-02 12:11 | disposition home or self-care (01) ==
PROVIDERS: PCP Internal Medicine; Visit Provider Nurse Practitioner Family
DX: R32 Unspecified urinary incontinence (principal); R35.0 Frequency of micturition; R35.89 Other polyuria; Z13.9 Encounter for screening, unspecified
CPT/HCPCS: 99213

== ENCOUNTER 2024-03-02 10:33 | Outpatient (REF) | payer OTHER, SELFPAY ==
[2024-03-02 12:58] LABS: Anion Gap 12 (12-20); Blood Urea Nitrogen 17 mg/dL (9-16); Calcium 9.6 mg/dL (8.4-10.2); Carbon Dioxide 24 mmol/L (22-29); Chloride 106 mmol/L (96-108); Estimated Glomerular Filt Rate > 60; Glucose Random 88 mg/dL (60-115); Potassium 3.2 mmol/L (3.3-5.1); Sodium 139 mmol/L (135-145)
== END 2024-03-02 10:34 | disposition home or self-care (01) ==
LOC: HO.LAB 10:33
PROVIDERS: PCP Internal Medicine; Visit Provider Nurse Practitioner Family
DX: R32 Unspecified urinary incontinence (principal); R35.0 Frequency of micturition; R35.1 Nocturia; R35.89 Other polyuria; Z79.899 Other long term (current) drug therapy
CPT/HCPCS: 36415; 51798; 80048; 81003; 99212

== ENCOUNTER 2024-03-22 14:06 | Outpatient (AMB) | payer OTHER, SELFPAY ==
[2024-03-22 14:17] VITALS: BP 122/82; PULSE 77; O2SAT 97; BMI 27.5
--- NOTE | 2024-03-22 14:17 | MHC.OFFVIS ---
Vital Signs 03/22/24 14:17 Height 5 ft 3 in Weight 155 lb BMI 27.5 BP 122/82 Blood Pressure Location Rt brachial Position Sitting Pulse 77 Pulse Source Pulse Oximeter Pulse Oximetry (%) 97 Oxygen Delivery Method Room Air Intake Visit Reasons: 5 mo f/u - CONF Intake Note: Patient presents for 5 month follow up. Allergies amoxicillin Allergy (Verified 03/22/24 14:22) Vomiting heparin Allergy (Verified 03/22/24 14:22) Hives lamotrigine [From Lamictal] Allergy (Verified 03/22/24 14:22) Hives levetiracetam [From Keppra] Allergy (Verified 03/22/24 14:22) Hives Medication List - Last Reconciled 03/22/24 by CYNDIE Gutierrez albuterol sulfate 90 mcg/actuation (Ventolin HFA) 2 puffs inhalation Q4-6H PRN aripiprazole 15 mg PO DAILY bacitracin 1 appl topical Q8H clonidine HCl 0.2 mg PO BEDTIME diclofenac potassium 50 mg PO BID PRN 30 days fremanezumab-vfrm (Ajovy) 225 mg (1.5 mL) subcut ONCE 30 days gabapentin 600 mg PO TID 30 days gabapentin 300 mg PO TID 30 days hydroxyzine pamoate 50 - 100 mg PO BEDTIME PRN lisinopril 10 mg PO DAILY nifedipine ER 30 mg PO DAILY perampanel (Fycompa) 2 mg PO BEDTIME 30 days sucralfate 1 g PO TID sumatriptan succinate 50 - 100 mg orally at onset of headache, may repeat in 2 hrs PRN; max 2 tabs per day or 4 tabs/week (may take with Ibuprofen or Tylenol) 30 days tamsulosin 0.4 mg PO DAILY topiramate 50 mg PO BID 30 days topiramate (Topamax) 100 mg PO BID 30 days HPI Comments Details: 38-yr-old male presents for f/u visit. Pt denies any significant interval medical changes. [facility]-py seizure work-up- MRI, VEEG. Pt reports he is having seizure activity at night. He wakes up feeling drowsy, out of it . Prior to increase in Gabapentin, he would have urinary incontinence as well. 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 He denies any recent spacing out episodes. We did recently advise pt to start Fycompa 2mg qhs- to reduce breakthrough seizure frequency- prior auth is pending. He is having less migraine days since starting Ajovy. He is using Sumatriptan 100mg tab prn PFSH Medical History Essential hypertension Sleep disorder Seizure disorder Back pain Neck pain PTSD (post-traumatic stress disorder) Seizure TBI (traumatic brain injury) Bipolar 1 disorder Surgical History Hx of hernia repair Family History Mother Cancer Family/Other No problems noted. Father Heart problem Social History Alcohol intake: current Alcohol intake frequency: a few times a month Alcohol type: wine Patient Tobacco Use Status: Former Tobacco user Physical Exam Vital Signs: Last Vital Signs Pulse 77 03/22/24 14:17 BP 122/82 03/22/24 14:17 Pulse Ox 97 03/22/24 14:17 Oxygen Delivery Method Room Air 03/22/24 14:17 BMI result Body Mass Index 27.5 Const General: cooperative and no acute distress Orientation/consciousness: patient oriented x3 Resp Effort & Inspection: normal respiratory effort and able to speak in complete sentences Neuro Other: pressured speech- pt's baseline General: patient oriented x3 Cranial nerves: Yes CN's II-XII intact bilaterally Psych Appearance: well kempt Affect: normal affect Attitude: cooperative Assessment & Plan Assessment & Plan (1) Seizure disorder: Code(s): G40.909 - Epilepsy, unspecified, not intractable, without status epilepticus Category: Medical (2) Hypokalemia: Code(s): E87.6 - Hypokalemia Category: Medical (3) Migraine without aura: Code(s): G43.009 - Migraine without aura, not intractable, without status migrainosus Category: Medical Plan For seizure d/o: F/u w/ Dr Chen as scheduled. Continue Gabapentin 900mg po TID. Continue Topiramatye 100mg bid. Start Fycompa 2mg qhs- advised of ADRs including mood/behavior changes. Check CBC, CMP. Pt does NOT drive. For acute migraine tx: Trial Sumatriptan 100mg tab, 1/2 - 1 tab (50-100mg) at onset of headache, may repeat in 2 hours. Max of 2 tabs (200mg) per 24 hours. May adjunct with Diclofenac 50mg bid prn, Max 15 days per month. For migraine prevention: Topiramtae 100mg bid, as pt is having significant reduction in monthly migraine days. Continue Ajovy 225mg sc q month- as pt is having good clinical effect from use. Tx contraindications- Beta-blockers d/t symptoimatic asthma dx. Orders: Orders Comprehensive Met. Panel 03/22/24 E87.6 - Hypokalemia, G40.909 - Epilepsy, unspecified, not intractable, without status epilepticus Complete Blood Count Auto Diff 03/22/24 E87.6 - Hypokalemia, G40.909 - Epilepsy, unspecified, not intractable, without status epilepticus Medications: New gabapentin Take w/ 300mg tab tid to total 900mg per dose 600 mg PO TID 90 tabs 6RF 30 days G40.909 - Epilepsy, unspecified, not intractable, without status epilepticus Changed From topiramate 100 mg PO BID 90 days 180 tabs 0RF To topiramate (Topamax) 100 mg PO BID 60 tabs 6RF 30 days Refilled diclofenac potassium 50 mg PO BID PRN 60 tabs 1RF migraine headache 30 days Discontinued topiramate Discontinued Reason: Doctor's Order 50 mg PO BID 30 days 60 tabs 3RF Coding Level of Care Code Est Pt Level 4 (79632) Diagnoses Seizure disorder G40.909 Hypokalemia E87.6 Migraine without aura G43.009
== END 2024-03-22 15:24 | disposition home or self-care (01) ==
PROVIDERS: PCP Internal Medicine; Visit Provider Nurse Practitioner Family
DX: G40.909 Epilepsy, unspecified, not intractable, without status epilepticus (principal); E87.6 Hypokalemia; G43.009 Migraine without aura, not intractable, without status migrainosus
CPT/HCPCS: 99214

== ENCOUNTER → 2024-03-22 14:06 | Outpatient (BNVA) | payer OTHER, SELFPAY | PROVIDERS: PCP Internal Medicine; Visit Provider Nurse Practitioner Family | DX: G40.909 Epilepsy, unspecified, not intractable, without status epilepticus (principal); G43.009 Migraine without aura, not intractable, without status migrainosus; E87.6 Hypokalemia | CPT/HCPCS: 99212 ==

== ENCOUNTER 2024-05-31 09:30 | Outpatient (AMB) | payer OTHER, SELFPAY ==
--- NOTE | 2024-05-31 09:30 | A.OFFVIS_ITS ---
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 Accompanied by: Unknown Allergies amoxicillin Allergy (Verified 05/31/24 09:57) Vomiting heparin Allergy (Verified 05/31/24 09:57) Hives lamotrigine [From Lamictal] Allergy (Verified 05/31/24 09:57) Hives levetiracetam [From Keppra] Allergy (Verified 05/31/24 09:57) Hives Medication List - Last Reconciled 05/31/24 by CYNDIE Ruiz- albuterol sulfate 90 mcg/actuation (Ventolin HFA) 2 puffs inhalation Q4-6H PRN aripiprazole 15 mg PO DAILY budesonide-formoterol 160-4.5 mcg/actuation (Symbicort) inhalation cetirizine 10 mg PO DAILY clonidine HCl 0.2 mg PO BEDTIME diclofenac potassium 50 mg PO BID PRN 30 days esomeprazole magnesium 40 mg PO BID famotidine 20 mg PO DAILY fremanezumab-vfrm (Ajovy) 225 mg (1.5 mL) subcut ONCE 30 days gabapentin 600 mg PO TID 30 days gabapentin 300 mg PO TID 30 days hydroxyzine pamoate 50 - 100 mg PO BEDTIME PRN lisinopril 10 mg PO DAILY nifedipine ER 30 mg PO DAILY nystatin topical perampanel (Fycompa) 2 mg PO BEDTIME 30 days sucralfate 1 g PO TID sumatriptan succinate 50 - 100 mg orally at onset of headache, may repeat in 2 hrs PRN; max 2 tabs per day or 4 tabs/week (may take with Ibuprofen or Tylenol) 30 days tamsulosin 0.4 mg PO DAILY topiramate (Topamax) 100 mg PO BID 30 days HPI Comments Details: Van is a very pleasant 38-year-old male patient of Dr. Shepard was accompanied by nursing home member/worker. He has a past medical history of hy pertension, sleep disorder, seizure disorder, PTSD, TBI, and bipolar. He presents to the office today for follow-up of his lower urinary tract symptoms. In discussion with the patient today reports to be doing and feeling well. He reports having had no bothersome urinary issues or concerns since his last office visit here 3 months ago. Reports feeling Flomax has been helpful in episodes of urinary urgency and frequency he had been experiencing. In office urinalysis results reviewed with the patient today. PVR 83 mL. Previous workup has included a retroperitoneal ultrasound 02/24 noting bilateral kidneys with no calculi or hydronephrosis. A benign mid renal 0.8 cm Bosniak class 1 renal cyst is noted which requires no additional follow-up per radiology report. The bladder is well distended and normal. Bilateral ureteral jets are demonstrated. Pre void bladder volume is approximately 525 mL. Postvoid bladder volume is approximately 15 mL. Prostate is of normal volume at 26.5 mL. When asked he denies hematuria, dysuria, foul smelling urine, changes to urinary stream, flank pain, fever, and or chills. Discussed at length potential causes of lower urinary tract symptoms patient had been experiencing. He otherwise offers no other issues or concerns at this time. [facility] Medical History Essential hypertension Sleep disorder Seizure disorder Back pain Neck pain PTSD (post-traumatic stress disorder) Seizure TBI (traumatic brain injury) Bipolar 1 disorder Surgical History Hx of hernia repair Family History Mother Cancer Family/Other No problems noted. Father Heart problem Social History Alcohol intake: current Alcohol intake frequency: a few times a month Alcohol type: wine Patient Tobacco Use Status: Former Tobacco user Review of Systems Const Reports no additional complaints Eyes Reports no additional complaints ENT Reports no additional complaints Card Reports as per HPI Resp Reports no additional complaints GI Reports no additional complaints Reports as per HPI Musc Reports no additional complaints Neuro Reports as per HPI Psych Reports as per HPI Endo Reports no additional complaints Garrett/Lymph Reports no additional complaints Aller/Immun Reports no additional complaints Physical Exam Const General: cooperative, healthy appearing, comfortable, no acute distress, well developed, alert and awake Orientation/consciousness: patient oriented x3 Limitations: no limitations HEENT Head: Yes normal to inspection, Yes normocephalic and Yes atraumatic Ears: hearing grossly normal bilaterally Eyes General: appearance normal, both eyes and all related structures Neck Neck: Yes normal visual inspection and Yes trachea midline Chest Chest palpation & inspection: normal inspection of the chest Resp Effort & Inspection: normal respiratory effort and able to speak in complete sentences Cardio Rate: regular rate GI Inspection: Yes normal to inspection General: Yes no CVA tenderness Back/Spine/Pelvis Back: no CVA tenderness Skin General skin exam: no rashes or lesions noted Neuro General: patient oriented x3 Extrem General: Yes normal to inspection Psych Appearance: grossly normal and well kempt Mental Status: mental status grossly normal Speech and movement: Normal speech and movement present and Clear speech present Affect: normal affect Attitude: cooperative Thought process: Normal thought process present and Other thought process findings present (disfluency ) Thought content: Normal thought content present Insight: Fair insight present (Psych) Judgement: Fair judgement present (Psych) Office Procedures Post Void Residual Post Residual Void Post Void Residual (PVR): [id number] Void Residual by ultrasound Results AMB Urinalysis, Automated UA Leukoctes 0 Shaun/uL Last Edit by Man[employer] on 05/31/24 09:51 UA Nitrite Last Edit by ClearCyclevivi on 05/31/24 09:51 UA Urobilinogen 0.2 mg/dL Last Edit by Man[employer] on 05/31/24 09:51 UA Protein 15 mg/dL Last Edit by [employer] on 05/31/24 09:51 UA pH 6.5 Last Edit by Man[employer] on 05/31/24 09:51 UA Blood 0 Thuan/uL Last Edit by [employer] on 05/31/24 09:51 UA Specific Doswell 1.020 Last Edit by [employer] on 05/31/24 09:51 UA Ketone Last Edit by Man[employer] on 05/31/24 09:51 UA Bilirubin 0 mg/dL Last Edit by Celia Romeo on 05/31/24 09:51 UA Glucose 0 mg/dL Last Edit by Celia Romeo on 05/31/24 09:51 Results Reviewed Results Reviewed: Laboratory Last Values Urine pH (Auto) 6.5 05/31/24 09:45 Specific Doswell (Auto) 1.020 05/31/24 09:45 Urine Protein (Auto) 15 mg/dL 05/31/24 09:45 Glucose (UA)(Auto) 0 mg/dL 05/31/24 09:45 Urine Blood (Auto) 0 Thuan/uL 05/31/24 09:45 Urine Bilirubin (Auto) 0 mg/dL 05/31/24 09:45 Urine Urobilinogen (Auto) 0.2 mg/dL 05/31/24 09:45 Leukocyte Esterase (Auto) 0 Shaun/uL 05/31/24 09:45 Assessment & Plan Assessment & Plan (1) Urinary incontinence: Code(s): R32 - Unspecified urinary incontinence Category: Medical (2) Frequency of urination and polyuria: Code(s): R35.0 - Frequency of micturition; R35.89 - Other polyuria Category: Medical Plan In office urinalysis results reviewed with the patient today; as noted above. PVR 84 mL. Discussed potential causes for lower urinary tract symptoms patient had been experiencing. Patient reports be happy with current voiding parameters. Currently denies any bothersome urinary issues or concerns. Continue Flomax as discussed and prescribed. Discussed near future bladder diary if symptoms arise. Discussed importance of limiting fluids 2-3 hours prior to bed to decrease episodes of nocturia. Follow up in 6 months; or sooner with any issues, concerns, and or questions. Orders: Orders AMB Urinalysis Automated Today Z13.9 - Encounter for screening, unspecified AMB Post Void Residual by ultrasound Today R35.0 - Frequency of micturition, R35.89 - Other polyuria Patient Instructions: The patient had an opportunity to ask questions regarding the treatment plan. All questions were answered. Physical exam, labs, and imaging were discussed and reviewed in detail. As well as risks, benefits, and discussion of treatment choices. No major barriers to understanding were identified. The patient expressed understanding and agreement with the above treatment plan. The patient was made aware they should contact our office by phone for worsening of their current condition, the appearance of new symptoms, or with any questions or concerns. Compliance is encouraged with any medications and follow up testing that is ordered. It is a privilege to be allowed the opportunity to participate in? your urological care.? Again, if you have any questions or concerns If you have any questions or concerns please do not hesitate to contact me. The office is [phone]. This note is constructed using voice recognition software. While every effort has been made to ensure accuracy manager wound care errors may have been included. Yours sincerely, SANA Ruiz Coding Level of Care Code Est Pt Level 3 (05331) Diagnoses Urinary incontinence R32 Frequency of urination and polyuria R35.0; R35.89 CPT Codes Post Residual Void - PVR CPT Code: 03923-[id number] Void Residual by ultrasound ([id number])
== END 2024-05-31 10:02 | disposition home or self-care (01) ==
PROVIDERS: PCP Internal Medicine; Visit Provider Nurse Practitioner Family
DX: R32 Unspecified urinary incontinence (principal); R35.0 Frequency of micturition; R35.89 Other polyuria; Z13.9 Encounter for screening, unspecified
CPT/HCPCS: 99213

== ENCOUNTER → 2024-05-31 09:30 | Outpatient (BNVA) | payer OTHER, SELFPAY | PROVIDERS: PCP Internal Medicine; Visit Provider Nurse Practitioner Family | DX: R32 Unspecified urinary incontinence (principal); R35.0 Frequency of micturition; R35.89 Other polyuria | CPT/HCPCS: 51798; 81003; 99212 ==

== ENCOUNTER 2024-06-09 13:20 | Outpatient (AMB) | payer OTHER, SELFPAY ==
[2024-06-09 13:22] VITALS: BP 140/88; PULSE 94; O2SAT 97; BMI 33.8
--- NOTE | 2024-06-09 13:22 | MHC.OFFVIS ---
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 Pt is accompanied by his shared house caregiver, Rik. Pt had a [facility] ER eval last week, as he had hit his head walking into something and felt he had increased seizures. The ER reached out to us, and we advised them to restrt the Fycompa 2mg qhs- which had been held d/t possible headache. Pt states sometimes his seizures are worse- having 2-3 seizures in 1 day- though cannot say specifically. Tends to call the service on the weekends to report these, as he states he is working during the week days. States during his seizure his eye move back and forth, he has LOC and urinary incontinence x's 1-2 minutes, but denies full convulsive seizure. Endorses postictal confusion and tiredness. Overall he is bale to maintain his 20 hr per week work schedule. He had Brain MRI in [place]. States he is waiting for an appointment to scheduyle the in-pt video EEG. He is having less migraine days since starting Ajovy. He is using Sumatriptan 100mg tab prn which is effective- but rarely needs to sarai now. [facility] Medical History Essential hypertension Sleep disorder Seizure disorder Back pain Neck pain PTSD (post-traumatic stress disorder) Seizure TBI (traumatic brain injury) Bipolar 1 disorder Surgical History Hx of hernia repair Family History Mother Cancer Family/Other No problems noted. Father Heart problem Social History Alcohol intake: current Alcohol intake frequency: a few times a month Alcohol type: wine Patient Tobacco Use Status: Former Tobacco user Physical Exam Vital Signs: Last Vital Signs Pulse 94 06/09/24 13:22 BP 140/88 H 06/09/24 13:22 Pulse Ox 97 06/09/24 13:22 Oxygen Delivery Method Room Air 06/09/24 13:22 BMI result Body Mass Index 33.8 Const General: cooperative and no acute distress Orientation/consciousness: patient oriented x3 Resp Effort & Inspection: normal respiratory effort and able to speak in complete sentences Neuro Other: pressured speech- pt's baseline General: patient oriented x3 Cranial nerves: Yes CN's II-XII intact bilaterally Psych Appearance: well kempt Affect: normal affect Attitude: cooperative Assessment & Plan Assessment & Plan (1) Seizure disorder: Code(s): G40.909 - Epilepsy, unspecified, not intractable, without status epilepticus Category: Medical (2) Hypokalemia: Code(s): E87.6 - Hypokalemia Category: Medical (3) Migraine without aura: Code(s): G43.009 - Migraine without aura, not intractable, without status migrainosus Category: Medical Plan For seizure d/o: F/u w/ Dr Chen as scheduled. Pt to call to confirm video EEG date. Pt and caregiver to keep diary of pt's seizure episodes. Reviewed rationale for when to update office, on-calls service, and to seek urgent medical attention or call 911. Continue Gabapentin 900mg po TID. Continue Topiramate 100mg bid. Continue Fycompa 2mg qhs.. Pt does NOT drive. For acute migraine tx: Continue Sumatriptan 100mg tab, 1/2 - 1 tab (50-100mg) at onset of headache, may repeat in 2 hours. Max of 2 tabs (200mg) per 24 hours. May adjunct with Diclofenac 50mg bid prn, Max 15 days per month. For migraine prevention: Topiramate 100mg bid, as pt is having significant reduction in monthly migraine days. Continue Ajovy 225mg sc q month- as pt is having good clinical effect from use. Tx contraindications- Beta-blockers d/t symptomatic asthma dx. Coding Level of Care Code Est Pt Level 4 (91312) Diagnoses Seizure disorder G40.909 Hypokalemia E87.6 Migraine without aura G43.009
== END 2024-06-09 14:22 | disposition home or self-care (01) ==
LOC: HO.HSMS 13:21
PROVIDERS: PCP Internal Medicine; Visit Provider Nurse Practitioner Family
DX: G40.909 Epilepsy, unspecified, not intractable, without status epilepticus (principal); E87.6 Hypokalemia; G43.009 Migraine without aura, not intractable, without status migrainosus
CPT/HCPCS: 99214

== ENCOUNTER → 2024-06-09 13:20 | Outpatient (BNVA) | payer OTHER, SELFPAY | PROVIDERS: PCP Internal Medicine; Visit Provider Nurse Practitioner Family | DX: G40.909 Epilepsy, unspecified, not intractable, without status epilepticus (principal); G43.009 Migraine without aura, not intractable, without status migrainosus; E87.6 Hypokalemia | CPT/HCPCS: 99212 ==

== ENCOUNTER 2024-06-24 22:11 | Emergency (ER) | payer OTHER, SELFPAY ==
[2024-06-24 22:16] VITALS: BP 160/100; PULSE 82; O2SAT 99
[2024-06-24 22:21] VITALS: BP 147/94; PULSE 76; RESP 24; TEMP 36.6; O2SAT 97
[2024-06-24 22:24] VITALS: BP 147/94; PULSE 76; RESP 20; TEMP 36.6; O2SAT 97; BMI 33.7
--- NOTE | 2024-06-24 23:08 | ED.EXTPRO ---
HPI - Extremity Problem General Chief complaint: Extremity Injury, Upper Stated complaint: L arm numbness x 1hr Time Seen by Provider: 06/24/24 23:04 Source: patient Mode of arrival: EMS Limitations: no limitations History of Present Illness ED Provider: karl Related Data Home Medications ?Medication ?Instructions ?Recorded ?Confirmed albuterol sulfate 90 mcg/actuation 2 puff inhalation Q4-6H PRN 06/21/23 03/22/24 aerosol inhaler (Ventolin HFA) Shortness Of Breath Or Wheezing aripiprazole 15 mg tablet 15 mg PO DAILY 06/21/23 03/22/24 clonidine HCl 0.1 mg tablet 0.2 mg PO BEDTIME 06/21/23 03/22/24 hydroxyzine pamoate 50 mg capsule 50 - 100 mg PO BEDTIME PRN Anxiety 06/21/23 03/22/24 lisinopril 10 mg tablet 10 mg PO DAILY 06/21/23 03/22/24 nifedipine 30 mg tablet,extended 30 mg PO DAILY 06/21/23 03/22/24 release 24 hr tamsulosin 0.4 mg capsule 0.4 mg PO DAILY 06/21/23 03/22/24 budesonide-formoterol HFA 160 inhalation 05/31/24 mcg-4.5 mcg/actuation aerosol inhaler (Symbicort) cetirizine 10 mg tablet 10 mg PO DAILY 05/31/24 esomeprazole magnesium 40 mg 40 mg PO BID 05/31/24 capsule,delayed release famotidine 20 mg tablet 20 mg PO DAILY 05/31/24 nystatin 100,000 unit/gram topical topical 05/31/24 powder Previous Rx's ?Medication ?Instructions ?Recorded sumatriptan succinate 100 mg tablet 50 - 100 mg (0.5 - 1 x 100 mg) PO 02/19/24 .COMPLEX PRN migraine headache 30 days #12 tabs gabapentin 600 mg tablet 600 mg PO TID 30 days #90 tabs 03/22/24 topiramate 100 mg tablet (Topamax) 100 mg PO BID 30 days #60 tabs 03/22/24 perampanel 2 mg tablet (Fycompa) 2 mg PO BEDTIME 30 days #30 tabs 04/16/24 diclofenac potassium 50 mg tablet 50 mg PO BID PRN migraine headache 05/05/24 30 days #60 tabs fremanezumab-vfrm 225 mg/1.5 mL 225 mg (1.5 mL) subcut ONCE 30 06/17/24 subcutaneous auto-injector (Ajovy) days #1.5 mL gabapentin 300 mg capsule 300 mg PO TID 30 days #90 caps 06/17/24 Allergies Allergy/AdvReac Type Severity Reaction Status Date / Time amoxicillin Allergy Vomiting Verified 06/24/24 22:27 heparin Allergy Hives Verified 06/24/24 22:27 lamotrigine [From Lamictal] Allergy Hives Verified 06/24/24 22:27 levetiracetam [From Keppra] Allergy Hives Verified 06/24/24 22:27 [facility] [place] Past Medical History Medical History Essential hypertension Sleep disorder Seizure disorder Back pain Neck pain PTSD (post-traumatic stress disorder) Seizure TBI (traumatic brain injury) Bipolar 1 disorder Surgical History Hx of hernia repair Family History Family History Mother Cancer Family/Other No problems noted. Father Heart problem Social History Social History Alcohol intake: current Alcohol intake frequency: does not drink Alcohol type: wine Patient Tobacco Use Status: Former Tobacco user Smoked in Last 30 Days: No Advance Directives: No Advance Directives Information Provided: No Do you have a plan to hurt others: No Plan Physical Exam Vital Signs: Vital Signs: Last Vital Signs Temp 98.4 F 06/25/24 00:04 Pulse 56 06/25/24 00:04 Resp 15 06/25/24 00:04 BP 108/73 06/25/24 00:04 Pulse Ox 96 06/25/24 00:04 O2 Del Method Room Air 06/25/24 00:04 BMI result Body Mass Index 33.7 Discharge Plan Discharge Clinical Impression: Anxiety Patient Disposition: Home, Self-Care Instructions: Anxiety (ED) Additional Instructions: your numbness in the left arm is gone is not from the heart follow up with your PCP as needed Prescriptions: No Action sumatriptan succinate 100 mg tablet 50 - 100 mg PO .COMPLEX PRN (Reason: migraine headache) 30 Days Qty: 12 6RF Rx Instructions: 50 - 100 mg orally at onset of headache, may repeat in 2 hrs PRN; max 2 tabs per day or 4 tabs/week (may take with Ibuprofen or Tylenol) Fycompa 2 mg tablet 2 mg PO BEDTIME 30 Days Qty: 30 4RF diclofenac potassium 50 mg tablet 50 mg PO BID PRN (Reason: migraine headache) 30 Days Qty: 60 1RF gabapentin 300 mg capsule 300 mg PO TID 30 Days Qty: 90 0RF Ajovy Autoinjector 225 mg/1.5 mL auto-injector 225 mg subcut ONCE 30 Days Qty: 1.5 0RF Rx Instructions: administer 225mg sc q month nifedipine 30 mg tablet extended release 24hr 30 mg PO DAILY clonidine HCl 0.1 mg tablet 0.2 mg PO BEDTIME hydroxyzine pamoate 50 mg capsule 50 - 100 mg PO BEDTIME PRN (Reason: Anxiety) lisinopril 10 mg tablet 10 mg PO DAILY aripiprazole 15 mg tablet 15 mg PO DAILY tamsulosin 0.4 mg capsule 0.4 mg PO DAILY albuterol sulfate [Ventolin HFA] 90 mcg/actuation HFA aerosol inhaler 2 puff inhalation Q4-6H PRN (Reason: Shortness Of Breath Or Wheezing) gabapentin 600 mg tablet 600 mg PO TID 30 Days Qty: 90 6RF Rx Instructions: Take w/ 300mg tab tid to total 900mg per dose topiramate [Topamax] 100 mg tablet 100 mg PO BID 30 Days Qty: 60 6RF esomeprazole magnesium 40 mg capsule,delayed release(DR/EC) 40 mg PO BID cetirizine 10 mg tablet 10 mg PO DAILY famotidine 20 mg tablet 20 mg PO DAILY nystatin 100,000 unit/gram powder topical budesonide-formoterol [Symbicort] 160-4.5 mcg/actuation HFA aerosol inhaler inhalation Interventions: ED Discharge Assessment Last Done: 06/25/24 00:04 Discharge Date/Time: 06/25/24 00:05 Print Language: Icelandic
--- NOTE | 2024-06-24 23:32 | ECG_ITS ---
Test Reason : L ARM PAIN Blood Pressure : / mmHG Vent. Rate : 046 BPM Atrial Rate : 046 BPM P-R Int : 154 ms QRS Dur : 086 ms QT Int : 428 ms P-R-T Axes : 008 012 013 degrees QTc Int : 374 ms Sinus bradycardia with sinus arrhythmia Minimal voltage criteria for LVH, may be normal variant ( R in aVL ) Borderline ECG When compared with ECG of 12-DEC-2023 01:13, No significant change was found Referred By: Gilbert Hansen Electronically Signed By:ANSHU PATRICIO MD
[2024-06-24 23:47] VITALS: BP 108/73; PULSE 56; RESP 15; TEMP 36.9; O2SAT 96
[2024-06-25 00:04] VITALS: BP 108/73; PULSE 56; RESP 15; TEMP 36.9; O2SAT 96
--- NOTE | 2024-06-25 00:04 | PC.NURSE ---
Negative workup, cleared for dc home with skilled nursing staff.
== END 2024-06-25 00:05 | disposition home or self-care (01) ==
PROVIDERS: Emergency Provider Internal Medicine
DX: R20.0 Anesthesia of skin (principal); M79.602 Pain in left arm; R00.1 Bradycardia, unspecified; I49.8 Other specified cardiac arrhythmias; F41.9 Anxiety disorder, unspecified
CPT/HCPCS: 93005; 99283; 99284

== ENCOUNTER → 2024-06-24 23:32 | Outpatient (BNV) | payer OTHER, SELFPAY | PROVIDERS: Emergency Provider Internal Medicine; Visit Provider Internal Medicine Cardiovascular Disease | DX: R00.1 Bradycardia, unspecified (principal) | CPT/HCPCS: 93010 ==

== ENCOUNTER 2024-08-06 22:46 | Emergency (ER) | payer OTHER, SELFPAY ==
[2024-08-06 22:50] VITALS: BP 128/89; PULSE 98; RESP 17; TEMP 36.9; O2SAT 95; BMI 34.2
[2024-08-06 23:27] LABS: Basophils Absolute Auto 0.1 X10*3/uL (0.0-0.2); Basophils Percent Auto 0.9 % (0-2); Eosinophils Absolute Auto 0.3 X10*3/uL (0.0-0.4); Hematocrit 40.2 % (42.0-52.0); Hemoglobin 13.9 g/dl (14.0-18.0); Imm Gran Abs Auto 0.02 X10*3/uL (0.00-0.03); Imm Gran Pct Auto 0.3 % (0.0-0.4); Lymphocytes Absolute Auto 2.3 X10*3/uL (1.2-4.9); MANUAL DIFF FLAG NO; Mean Corpuscular HGB Conc 34.6 g/dl (31.0-36.0); Mean Corpuscular Hemoglobin 28.9 pg (27.0-33.0); Mean Corpuscular Volume 83.6 fL (80.0-98.0); Mean Platelet Volume 9.7 fL (9.4-12.4); Monocytes Absolute Auto 0.7 X10*3/uL (0.1-1.2); Monocytes Percent Auto 8.6 % (2-11); Neutrophils Absolute Auto 4.6 x10*3/uL (2.0-8.3); Neutrophils Percent Auto 57.2 % (45-73); Platelet Count 283 X10*3/uL (160-400); Red Blood Count 4.81 X10*6/uL (4.60-5.80); Red Cell Distribution Width 12.9 % (11.0-16.0)
[2024-08-06 23:30] LABS: Amphetamine Screen Urine Not Detected (Not Detect); Barbiturates, Urine Not Detected (Not Detect); Benzodiazepines Screen Urine Not Detected (Not Detect); Buprenorphine Scr Not Detected (Not Detect); Cannabinoid Screen Urine Not Detected (Not Detect); Cocaine Screen Urine Not Detected (Not Detect); Fentanyl, urine Not Detected (Not Detect); Methadone Screen, Urine Not Detected (Not Detect); Opiate Screen Urine Not Detected (Not Detect); Oxycodone Screen Urine Not Detected (Not Detect); Phencyclidine Screen Urine Not Detected (Not Detect)
[2024-08-06 23:43] LABS: Alanine Aminotransferase 58 U/L (0-40); Alkaline Phosphatase 118 U/L (39-117); Anion Gap 9 (12-20); Aspartate Amino Transferase 40 U/L (5-37); Bilirubin Total 0.2 mg/dL (0.0-1.0); Blood Urea Nitrogen 18 mg/dL (9-16); Calcium 8.4 mg/dL (8.4-10.2); Carbon Dioxide 20 mmol/L (22-29); Chloride 115 mmol/L (96-108); Creatinine Clr Calc Pharmacy 112.4; Estimated Glomerular Filt Rate > 60; Ethanol < 10 mg/dL; Glucose Random 90 mg/dL (60-115); Potassium 3.6 mmol/L (3.3-5.1); Sodium 140 mmol/L (135-145)
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
--- NOTE | 2024-08-07 05:05 | PC.NURSE ---
Patient slept through the night, no distress observed/reported, med rec completed/needs pharmacy review, patient was seen by care team, disposition is ROQUE follow up, 15 minutes safety check, no behavior and safety concerns, lab completed, VSS, will continue to monitor
[2024-08-07 06:11] VITALS: BP 114/83; PULSE 63; RESP 18; TEMP 37; O2SAT 96
--- NOTE | 2024-08-07 08:27 | PHA.MEDREC ---
Pharmacy Consult ? Medication Reconciliation Pharmacy has reviewed med rec done by nursing. Patient reported he is not currently taking gabapentin and fycompa. He reports abilify is 20 mg.
--- NOTE | 2024-08-07 08:41 | PC.NURSE ---
CARE team with pt now, pt states that he has a migraine and message sent to Dr Cornejo for med rec to be completed. med rec done by KAREN Coreas and pharmacy conculted and confirmed meds. pt alert, denies etoh for past 3 years. pleasant, ate breakfast, nad
--- NOTE | 2024-08-07 10:23 | PC.NURSE ---
some of pt meds not available in [facility], pharmacy was contacted but had not delivered prior to the discharge being ready, the pt wanted to leave bibi and says he will take his meds when he gets home, denies si/hi
[2024-08-07 10:26] VITALS: BP 114/83; PULSE 63; RESP 18; TEMP 37; O2SAT 96
== END 2024-08-07 10:26 | disposition home or self-care (01) ==
PROVIDERS: Emergency Provider Emergency Medicine; PCP Internal Medicine Geriatric Medicine
DX: R45.851 Suicidal ideations (principal); F31.9 Bipolar disorder, unspecified; F43.10 Post-traumatic stress disorder, unspecified; I10 Essential (primary) hypertension; Z87.820 Personal history of traumatic brain injury; Z79.899 Other long term (current) drug therapy
CPT/HCPCS: 36415; 80053; 80307; 85025; 99284; S9485

== ENCOUNTER 2024-08-13 22:28 | Emergency (ER) | payer OTHER, SELFPAY ==
[2024-08-13 22:51] VITALS: BP 130/97; PULSE 101; RESP 17; TEMP 36.8; O2SAT 95; BMI 16.5
[2024-08-13 23:09] VITALS: BP 130/97; PULSE 101; RESP 17; TEMP 36.8; O2SAT 95
[2024-08-13 23:20] LABS: Basophils Absolute Auto 0.1 X10*3/uL (0.0-0.2); Basophils Percent Auto 1.1 % (0-2); Eosinophils Absolute Auto 0.3 X10*3/uL (0.0-0.4); Hematocrit 40.3 % (42.0-52.0); Imm Gran Abs Auto 0.03 X10*3/uL (0.00-0.03); Imm Gran Pct Auto 0.4 % (0.0-0.4); Lymphocytes Absolute Auto 2.3 X10*3/uL (1.2-4.9); Lymphocytes Percent Auto 32.8 % (20-40); MANUAL DIFF FLAG NO; Mean Corpuscular HGB Conc 34.7 g/dl (31.0-36.0); Mean Corpuscular Hemoglobin 28.7 pg (27.0-33.0); Mean Corpuscular Volume 82.8 fL (80.0-98.0); Mean Platelet Volume 9.8 fL (9.4-12.4); Monocytes Absolute Auto 0.6 X10*3/uL (0.1-1.2); Monocytes Percent Auto 8.2 % (2-11); Neutrophils Absolute Auto 3.8 x10*3/uL (2.0-8.3); Neutrophils Percent Auto 53.5 % (45-73); Platelet Count 288 X10*3/uL (160-400); Red Blood Count 4.87 X10*6/uL (4.60-5.80); Red Cell Distribution Width 12.8 % (11.0-16.0); White Blood Count 7.1 X10*3/uL (4.8-10.8)
[2024-08-13 23:26] LABS: Appearance Urine Clear; Color Urine Yellow; Glucose Urine UA Negative (Negative); Leukocyte Esterase Urine Negative (Negative); Nitrite Urine Negative (Negative); PH 7.5 (5.0-9.0); Urine Blood Negative (Negative); Urine Ketones Negative (Negative); Urine Protein Negative (Neg-Trace)
[2024-08-13 23:41] LABS: Alanine Aminotransferase 61 U/L (0-40); Albumin Level 4.1 g/dL (3.5-5.0); Alkaline Phosphatase 118 U/L (39-117); Anion Gap 9 (12-20); Aspartate Amino Transferase 36 U/L (5-37); Bilirubin Total 0.2 mg/dL (0.0-1.0); Blood Urea Nitrogen 14 mg/dL (9-16); Calcium 8.3 mg/dL (8.4-10.2); Carbon Dioxide 20 mmol/L (22-29); Chloride 117 mmol/L (96-108); Creatinine Clr Calc Pharmacy 68.5; Estimated Glomerular Filt Rate > 60; Ethanol < 10 mg/dL; Glucose Random 107 mg/dL (60-115); Potassium 3.6 mmol/L (3.3-5.1); Sodium 142 mmol/L (135-145); Total Protein 7.3 g/dL (6.5-8.0)
[2024-08-13 23:45] LABS: Amphetamine Screen Urine Not Detected (Not Detect); Barbiturates, Urine Not Detected (Not Detect); Benzodiazepines Screen Urine Not Detected (Not Detect); Buprenorphine Scr Not Detected (Not Detect); Cannabinoid Screen Urine Not Detected (Not Detect); Cocaine Screen Urine Not Detected (Not Detect); Fentanyl, urine Not Detected (Not Detect); Methadone Screen, Urine Not Detected (Not Detect); Opiate Screen Urine Not Detected (Not Detect); Oxycodone Screen Urine Not Detected (Not Detect); Phencyclidine Screen Urine Not Detected (Not Detect)
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
--- NOTE | 2024-08-14 07:13 | PC.NURSE ---
Assumed care of patient at 0645, patient appears to be sleeping, respiraitons even and unlabored, no apparent distress noted. Continue plan of care for discharge after breakfast
[2024-08-14 08:13] VITALS: BP 147/91; PULSE 81; RESP 13; TEMP 36.8; O2SAT 97
== END 2024-08-14 08:21 | disposition home or self-care (01) ==
PROVIDERS: Emergency Provider Emergency Medicine
DX: F41.1 Generalized anxiety disorder (principal); R45.851 Suicidal ideations; F43.9 Reaction to severe stress, unspecified; I10 Essential (primary) hypertension; Z79.899 Other long term (current) drug therapy; Z87.891 Personal history of nicotine dependence; Z51.81 Encounter for therapeutic drug level monitoring
CPT/HCPCS: 36415; 80053; 80307; 81003; 85025; 99285

== ENCOUNTER → 2024-10-01 11:26 | Outpatient (AMB) | payer OTHER, SELFPAY ==
--- NOTE | 2024-10-01 11:27 | A.OFFVIS_ITS ---
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: No Allergies amoxicillin Allergy (Verified 08/13/24 22:55) Vomiting heparin Allergy (Verified 08/13/24 22:55) Hives lamotrigine [From Lamictal] Allergy (Verified 08/13/24 22:55) Hives levetiracetam [From Keppra] Allergy (Verified 08/13/24 22:55) Hives Medication List - Last Reconciled 10/01/24 by CYNDIE Gutierrez albuterol sulfate 90 mcg/actuation (Ventolin HFA) 2 puffs inhalation Q4-6H PRN aripiprazole 20 mg PO DAILY budesonide-formoterol 160-4.5 mcg/actuation (Symbicort) 2 puffs inhalation BID cetirizine 10 mg PO DAILY clonidine HCl 0.2 mg PO BEDTIME diclofenac potassium 50 mg PO BID PRN 30 days esomeprazole magnesium 40 mg PO BID famotidine 20 mg PO DAILY fremanezumab-vfrm (Ajovy) 225 mg subcut QMONTH hydroxyzine pamoate 50 - 100 mg PO BEDTIME PRN lisinopril 10 mg PO DAILY lithium carbonate patient unsure of dose orally bedtime; melatonin PO .QHS nifedipine ER 30 mg PO DAILY sumatriptan succinate 50 - 100 mg orally at onset of headache, may repeat in 2 hrs PRN; max 2 tabs per day or 4 tabs/week (may take with Ibuprofen or Tylenol) 30 days tamsulosin 0.4 mg PO DAILY topiramate (Topamax) 100 mg PO BID 30 days HPI Comments Details: The patient is a 38-year-old male presenting with a follow-up for epilepsy and migraine. Pt is alone today- and does not bring any paperwork with him today. Patient notes that he has moved again, as he was having significant disagreements with his previous caregiver. He states his now housing situation is much better. He is also feeling better now that his has moved into senior living of her own. Patient reports he underwent a recent endoscopy due to episodes of hematemesis, which revealed gastritis and a hiatal hernia. 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 Previous seizure-like episodes were previously managed with Ficompo and gabapentin, both discontinued recently with no seizure activity or recurrence of seizure activity occurred during five day inpatient video EEG, while off of Fycompa and gabapentin, in [place]. It was felt the patient's episodes were likely non-epileptic convulsions/seizure activity. Migraines managed using Ajovy and prn sumatriptan. Again now taking diclofenac bid scheduled. He typically is having less than 1 migraine day per week. Unfortunately, he has not been allowed to carry his sumatriptan with him, so when outside of home- such as at work- he cannot treat his migraine at the first sign. Dalia notes he has been receiving the Ajovy syringe version rather than the usual auto-injector- which he prefers. He reports his restless legs are worse, both while in bed, but also sometimes when walking,are worse, both while in bed, but also sometimes when walking. He describes this as an urge to move on in bed. However, when he is walking, his right leg will begin to shake. He states this is worse when his chronic low back pain is worse. Walking: Requires a cane due to leg weakness; experiences shaking after 10 minutes, particularly in cold conditions.He did PT long time ago, He did PT long time ago, which was hopeful for this. He does have a history of sleep apnea, he does not currently have a CPAP machine. He is currently followed by [facility]. Sleep medicine, who plans to have patient undergo a follow up sleep study to further assess. 06/09/2024 HPI: 38-yr-old male presents for f/u visit for seizure and migraine. Pt is accompanied by his shared house caregiver, Rik. Pt had a [facility] ER eval last week, as he had hit his head walking into something and felt he had increased seizures. The ER reached out to us, and we advised them to restrt the Fycompa 2mg qhs- which had been held d/t possible headache. Pt states sometimes his seizures are worse- having 2-3 seizures in 1 day- though cannot say specifically. Tends to call the service on the weekends to report these, as he states he is working during the week days. States during his seizure his eye move back and forth, he has LOC and urinary incontinence x's 1-2 minutes, but denies full convulsive seizure. Endorses postictal confusion and tiredness. Overall he is bale to maintain his 20 hr per week work schedule. He had Brain MRI in [place]. States he is waiting for an appointment to scheduyle the in-pt video EEG. He is having less migraine days since starting Ajovy. He is using Sumatriptan 100mg tab prn which is effective- but rarely needs to sarai now. [facility] Medical History Essential hypertension Sleep disorder Seizure disorder Back pain Neck pain PTSD (post-traumatic stress disorder) Seizure TBI (traumatic brain injury) Bipolar 1 disorder Surgical History Hx of hernia repair Family History Mother Cancer Family/Other No problems noted. Father Heart problem Social History Alcohol intake: current Alcohol intake frequency: does not drink Alcohol type: wine Patient Tobacco Use Status: Former Tobacco user Physical Exam Vital Signs: Last Vital Signs Pulse 81 10/01/24 11:33 BP 126/80 10/01/24 11:33 Pulse Ox 96 10/01/24 11:33 Oxygen Delivery Method Room Air 10/01/24 11:33 Const General: cooperative and no acute distress Orientation/consciousness: patient oriented x3 Resp Effort & Inspection: normal respiratory effort and able to speak in complete sentences Neuro Other: pressured speech- pt's baseline General: patient oriented x3 Cranial nerves: Yes CN's II-XII intact bilaterally Psych Appearance: well kempt Affect: normal affect Attitude: cooperative Assessment & Plan Assessment & Plan (1) Back pain: Code(s): M54.9 - Dorsalgia, unspecified Category: Medical (2) Seizure disorder: Comment: video EEGwhile off AEDs- normal. Likely non-epileptic convulsions. Code(s): G40.909 - Epilepsy, unspecified, not intractable, without status epilepticus Category: Medical (3) Hypokalemia: Code(s): E87.6 - Hypokalemia Category: Medical (4) Migraine without aura: Code(s): G43.009 - Migraine without aura, not intractable, without status migrainosus Category: Medical Plan Discussion Notes I discussed non-epileptic seizure management without anti-epileptic drugs, given the absence of seizure activity since their cessation, advising follow-up if symptoms reoccur. For migraines, ongoing management with ajovy and PRN sumatriptan and diclofenac was noted, advising non-routine usage. Will follow- up with patient's pharmacy to ensure that his Ajovy is dispensed as auto injector as prescribed, and not as a syringe. The patient was advised about potential irritants of daily diclofenac utilization. Discussed gabapentin reintroduction for both restless legs and lumbar pain and encouraged adherence to prescribed back exercises and start physical therapy for overall improvement. I encouraged patient to f/u with [facility] sleep medicine for f/u sleep study to assess status of sleep apnea. Patient was informed and verbally consented to the use of an ambient scribe for clinic note documentation during this visit. Plan: For low back pain: - Obtain a lumbar spine x-ray for pain assessment. - continue to use cane while walking. - PT ecal & tx ordered - Resume gabapentin 200mg 3 times a day- for back pain and restless leg symptoms. For seizure d/o- likely non-epileptic convulsions: Reviewed video EEG and hospitla notes. Pt has stopped Gabapentin, Fycompa. Pt does NOT drive. - Monitor for convulsions/spacing out episodes and report any recurrence immediately. For general headache prevention: - follow up with [facility] Sleep medicine as scheduled. For acute migraine tx: Continue Sumatriptan 100mg tab, 1/2 - 1 tab (50-100mg) at onset of headache, may repeat in 2 hours. Max of 2 tabs (200mg) per 24 hours. Will request that patient be allowed to carry one ? two doses of sumatriptan with him at all times, to ensure he can treat migraine at the first sign of a migraine attack. Discontinue Diclofenac 50mg bid prn order d/t current gastritis s/s. For migraine prevention: Continue Topiramate 100mg bid, as pt is having significant reduction in monthly migraine days. Continue Ajovy 225mg sc q month- as pt is having good clinical effect from use. Tx contraindications- Beta-blockers d/t symptomatic asthma dx. Will follow-up upon review of above and patient to follow-up in clinic in 6 months or sooner prn. Orders: Orders XR lumbar spine 6V w bending 10/01/24 M54.9 - Dorsalgia, unspecified PT Evaluation and Treatment 10/01/24 M54.9 - Dorsalgia, unspecified Medications: New gabapentin 200 mg (2 x 100 mg) PO TID 180 caps 3RF 30 days Coding Level of Care Code Est Pt Level 4 (38491) Diagnoses Back pain M54.9 Seizure disorder G40.909 Hypokalemia E87.6 Migraine without aura G43.009
[2024-10-01 11:33] VITALS: BP 126/80; PULSE 81; O2SAT 96
--- OUTSIDE RECORDS SUMMARY | 2024-10-01 13:40 | XMS_ITS | Encounter Summary ---
Author Organization [facility] Address [address] [place] [address] Care Team Providers Care Race Board Attendant Name Role Phone CharissaDevynBelinda Primary Care Pro vider Encounter Details Date Type Department Care Team (Late st Contact Info) Description 08/24/2024 Lab Requisition [facility] Lab [address] [place] [phone] Claribel Moreno, DENYS [address] [place] [phone] Post-traumatic stress disorder, unspecified; Autistic disorder Social History Tobacco Use Types Packs/Day Years Used Date Smoking Tobacco: Never Assessed Sex and Gender Information Value Date Recorded Sex Assigned at Male 09/19/2024 10:38 PM EST Legal Sex Male 1:52 AM EST Gender Identity Male 09/19/2024 10:38 PM EST Sexual Orientation Straight 09/19/2024 10 :38 PM EST documented as of this encounter Plan of Treatment Not on file documented as of this encounter Procedures Procedure Name Priority Date/Time Associated Diagnosis Comments LAVENDER - EDTA Routine 08/24/2024 3:30 PM EST Post-traumatic stress disorder, unspecified Autistic disorder DRUG ABUSE SCREEN, SERUM Routine 08/24/2024 3:30 PM EST Post-traumatic stress disorder, unspecified Autistic disorder BILIRUBIN, DIRECT Routine 08/24/2024 3:3 0 PM EST Post-traumatic stress disorder, unspecified Autistic disorder LITHIUM LEVEL Routine 08/24/2024 3:30 PM EST Post-traumatic stress disorder, unspecified Autistic disorder COMPREHENSIVE METABOLIC PANEL Routine 08/24/2024 3:30 PM EST Post-traumatic stress disorder, unspecified Autistic disorder documented in this encounter Results * Lavender tube (08/24/2024 3:30 PM EST) Pathologist [facility] Extra Tube Hold for add-ons. 08/24/2024 9:01 PM EST [facility] Comment:Auto resulted. Blood Venous blood specimen / Unknown 08/24/2024 3:30 PM EST 08/24/2024 7:15 PM EST us Claribel Moreno COMPUTATOR LAB BLOOD ORDERABLES Final Result [facility] [address] [place] [address], * Drug abuse screen, serum (08/24/2024 3:30 PM EST) Amphetamine, Serum, Qualitative Negative 08/27/2024 10:27 AM EST [facility] Barbiturate, Serum, Qualitative Negative 08/27/2024 10:27 AM EST [facility] Benzodiazepine, Serum, Qualitative Negative 08/27/2024 10:27 AM EST [facility] Cocaine, Serum, Qualitative Negative 08/27/2024 10:27 AM EST [facility] Methadone, Serum, Qualitative Negative 08/27/2024 10:27 AM EST [facility] Opiate, Serum, Qualitative Negative 08/27/2024 10:27 AM EST [facility] Phencyclidine, Serum, Qualitative Negative 08/27/2024 10:27 AM EST [facility] Propoxyphene, Serum, Qualitative Negative 08/27/2024 10:27 AM EST [facility] THC, Serum, Qualitative Negative 08/27/2024 10:27 AM EST [facility] Alcohol (Ethanol) Level Negative 08/27/2024 10:27 AM EST [facility] Comment: ?Screen Decision Limits ?Drug Analyzed ? Screen ? Units ? ------ ? ----- ?Amphetamine ? 500 ?ng/mL ?Barbiturate ? 150 ?ng/mL ?Benzodiazepines ? 100 ?ng/mL ?Cocaine ? 150 ?ng/mL ?Ethanol ? 10 ? mg/dL ? Toxic Blood Ethanol >300 ?mg/dL ?Methadone ? 150 ?ng/mL ?Opiates ? 150 ?ng/mL ?Phencyclidine ? 12 ? ng/mL ?Propoxyphene ?150 ?ng/mL ?THC (Cannabis) ?50 ? ng/mL ? A positive immunoassay result on a serum drug screen is considered presumptive evidence for the presence of the drug or its metabolite. Since some immunoassay tests detect only inactive metabolites and others are sensitive to very low drug levels, positive results may not correlate with the patient's physiological state. For confirmation of positive immunoassay results by an alternate method or for consultation, ??please contact the laboratory. If applicable, any drug confirmation testing reported here was developed and the performance characteristics determined by [facility]. This confirmation testing has not been cleared or approved by the FDA. The laboratory is regulated under CLIA as qualified to perform high-complexity testing. This test is used for patient testing purposes. It should not be regarded as investigational or for research. Test performed at [facility], [address] , [place], [place] ??[address] ? [phone] Caridad Schumacher MD, PhD - Element Winding Machine Tender Blood Venous blood specimen / Unknown 08/24/2024 3:30 PM EST 08/24/2024 7:15 PM EST Claribel Moreno LAB BLOOD ORDERABLES Final Result Performing Organization Address City/[facility]/ZIP Co de Phone Number [facility] [address] [place] [address] * (ABNORMAL) [place] level (08/24/2024 3:30 PM EST) [place] Level <0.2(L) 0.6 - 1.2 mEq/L LAB CHEMISTRY METHOD 08/24/2024 8:14 PM EST [facility] Comment:Results verified by repeat testing Blood Venous blood specimen / Unknown 08/24/2024 3:30 PM EST 08/24/2024 7:15 PM EST Claribel Moreno LAB BLOOD ORDERABLES Final Result [facility] [address] [place] [address], [place] [phone] * Bilirubin, direct (08/24/2024 3:30 PM EST) Bilirubin, Direct <0.1 0.0 - 0.3 mg/dL LAB CHEMISTRY METHOD 08/24/2024 7:58 PM EST [facility] Blood Venous blood specimen / Unknown 08/24/2024 3:30 PM EST 08/24/2024 7:15 PM EST Claribel Moreno COMPUTATOR LAB BLOOD ORDERABLES Final Result [facility] [address] [place] [address], * (ABNORMAL) Comprehensive metabolic panel (08/24/2024 3:30 PM EST) Sodium 138 133 - 145 mmol/L LAB CHEMISTRY METHOD 08/24/2024 7:58 PM [facility] Potassium 3.6 3.5 - 5.5 mmol/L LAB CHEMISTRY METHOD 08/24/2024 7:58 PM [facility] Chloride 109 96 - 110 mmol/L LAB CHEMISTRY METHOD 08/24/2024 7:58 PM [facility] CO2 24 21 - 32 mmol/L LAB CHEMISTRY METHOD 08/24/2024 7:58 PM [facility] Anion Gap 5 3 - 11 LAB CHEMISTRY METHOD 08/24/2024 7:58 PM [facility] Glucose 96 70 - 100 mg/dL LAB CHEMISTRY METHOD 08/24/2024 7:58 PM [facility] BUN 17 5 - 25 mg/dL LAB CHEMISTRY METHOD 08/24/2024 7:58 PM [facility] Creatinine 1.02 0.70 - 1.30 mg/dL LAB CHEMISTRY METHOD 08/24/2024 7:58 PM [facility] eGFR 97 >=60 mL/min/1. 73m2 LAB CHEMISTRY METHOD 08/24/2024 7:58 PM [facility] Comment:Calculation based on the??Chronic Kidney Disease Epidemiology Collaboration (CKD-EPI) equation refit??without adjustment for race. BUN/Creatinine Ratio 16.7 LAB CHEMISTRY METHOD 08/24/2024 7:58 PM [facility] Calcium 8.6 8.5 - 10.5 mg/dL LAB CHEMISTRY METHOD 08/24/2024 7:58 PM [facility] AST (SGOT) 39 10 - 42 unit/L LAB CHEMISTRY METHOD 08/24/2024 7:58 PM [facility] ALT (SGPT) 74(H) 10 - 60 unit/L LAB CHEMISTRY METHOD 08/24/2024 7:58 PM [facility] Alkaline Phosphatase 149(H) 42 - 121 unit/L LAB CHEMISTRY METHOD 08/24/2024 7:58 PM [facility] Total Protein 7.9 6.0 - 8.0 g/dL LAB CHEMISTRY METHOD 08/24/2024 7:58 PM [facility] Albumin 4.0 3.2 - 5.0 g/dL LAB CHEMISTRY METHOD 08/24/2024 7:58 PM [facility] Total Bilirubin 0.3 0.0 - 1.4 mg/dL LAB CHEMISTRY METHOD 08/24/2024 7:58 PM [facility] Blood Venous blood specimen / Unknown 08/24/2024 3:30 PM EST 08/24/2024 7:15 PM EST us Claribel Moreno COMPUTATOR LAB BLOOD ORDERABLES Final Result [facility] [address] [place] [address], documented in this encounter Visit Diagnoses Diagnosis Post-traumatic stress disorder, unspecified Autistic disorder Autistic disorder, current or active state documented in this encounter Care Teams Race Board Attendant Relationship Specialty Start Date End Date Belinda Will DO [facility] [address] [place] [phone] PCP - General Internal Medicine 01/28/22 documented as of this encounter
--- OUTSIDE RECORDS SUMMARY | 2024-10-01 13:40 | XMS_ITS | Encounter Summary ---
Author Organization [facility] Address [address] [place] [id number] Care Team Providers Care Unified Communications Engineer Name Role Phone CharissaoliverioivanBelinda armstrong Primary Care Pro vider Reason for Visit * Reason Comments Vomiting Blood Encounter Details Date Type Department Care Team (Late st Contact Info) Description 09/19/2024 8:24 PM EST - 09/20/2024 5:40 AM EST Emergency [facility] Emergency [address] [place] [address] Hematemesis, unspecified whether nausea present (Primary Dx); Hypoxia Discharge Disposition: Home or Self Care Social History Tobacco Use Types Packs/Day Years Used Date Smoking Tobacco: Never Assessed Sex and Gender Information Value Date Recorded Sex Assigned at Male 09/19/2024 10:38 PM EST Legal Sex Male 1:52 AM EST Gender Identity Male 09/19/2024 10:38 PM EST Sexual Orientation Straight 09/19/2024 10 :38 PM EST documented as of this encounter Last Filed Vital Signs Vital Sign Reading Time Taken Comments Blood Pressure 121/81 09/20/2024 5:37 AM EST Pulse 80 09/20/2024 5:37 AM EST Temperature 36.4 ??C (97.6 ??F) 09/20/2024 5:37 AM ES T Respiratory Rate 14 09/20/2024 5:37 AM EST Oxygen Saturation 95% 09/20/2024 5:37 AM EST Inhaled Oxygen Concentration - - Weight 86.2 kg (190 lb) 09/19/2024 8:28 PM EST Height 160 cm (5' 3 ) 09/19/2024 8:28 PM EST Body Mass Index 33.66 09/19/2024 8:28 PM EST documented in this encounter Functional Status * Are you deaf or do you have serious difficulty hearing? Answer Date of Assessment Author No 09/20/2024 3:30 AM JUDITH Edge, Greg Toledo RN * Are you blind or do you have serious difficulty seeing, even when wearing glasses? Answer Date of Assessment Author No 09/20/2024 3:30 AM JUDITH Edge, As melisa Toledo RN * Do you have serious difficulty walking or climbing stairs? Answer Date of Assessment Author No 09/20/2024 3:30 AM JUDITH Edge, As melisa Toledo RN * Do you have serious difficulty dressing or bathing? Answer Date of Assessment Author No 09/20/2024 3:30 AM JUDITH Edge, Greg Toledo RN * Because of a physical, mental, or emotional condition, do you have serious difficulty doing errandsalone such as visiting the doctor? Answer Date of Assessment Author No 09/20/2024 3:30 AM Greg Iraheta RN documented as of this encounter Mental Status * Because of a physical, mental, or emotional condition, do you have serious difficulty concentrating, remembering, or making decisions? (5 years old or older) Answer Entry Date Author No 09/20/2024 3:30 AM Greg Iraheta RN documented in this encounter Discharge Instructions * Discharge Instructions* EUSEBIO Bueno - 09/20/2024 4:56 AM EST Your imaging and labs today were reassuring. You will need to follow up with your GI specialist forfurther workup and will likely need an endoscopy for further evaluation. Please make sure you are continuing to take your Nexium every day, this will help protect your stomach and your esophagus against any additional bleeding concerns in the meantime. Please avoid caffeine, alcohol, tobacco smoking, NSAIDs such as ibuprofen/Motrin, spicy foods, sugary foods as these all may worsen your symptoms. Some concern that you may be experiencing sleep apnea, please continue follow-up with your mailing jogger as it appears you would likely benefit from a CPAP machine. * Attachments The following attachments cannot be sent through Care Everywhere. * Upper GI Bleed (Thai) documented in this encounter Medications at Time of Discharge ibuprofen (ADVIL,MOTRIN) 600 mg tablet Take 1 tablet (600 mg total) by mouth every 8 (eight) hours if needed for mild pain or moderate pain. 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 * Lesley Shelley RN - 09/19/2024 8:27 PM EST Pt from home, states he took his GERD medication (unable to list) and began to vomit blood. Abdomen+ distention documented in this encounter Plan of Treatment Not on file documented as of this encounter Procedures Procedure Name Priority Date/Time Associated Diagnosis Comments CT ABDOMEN PELVIS W CONTRAST STAT 09/20/2024 3:[address] ANGIO CHEST WO AND/OR W CONTRAST STAT 09/20/2024 3:21 AM EST Hypoxia XR NECK SOFT TISSUE STAT 09/20/2024 1 :43 AM EST XR CHEST 2 VIEWS STAT 09/20/2024 1:43 AM EST ECG OUTSIDE 09/20/2024 CBC WITH AUTO DIFFERENTIAL STAT 09/19/2024 8:43 PM EST CBC AND DIFFERENTIAL STAT 09/19/2024 8:43 PM EST TYPE AND SCREEN STAT 09/19/2024 8:43 PM EST COMPREHENSIVE METABOLIC PANEL STAT 09/19/2024 8:43 PM EST documented in this encounter Results * CT Angio Chest wo and/or w Contrast (09/20/2024 3:21 AM EST) Anatomical Region Laterality Modality Body Computed Tomogra phy 09/20/2024 4:21 AM EST Impressions 09/20/2024 4:21 AM EST 1. No pulmonary embolus. 2. A 5.5 mm right lower lobe pulmonary nodule, indeterminate. Follow-up chest CT recommended in 3-6 months to assess stability. 3. CT of the abdomen/pelvis dictated separately. This document has been electronically signed by: Edward Jones MD on 09/20/2024 04:21:03 Narrative 09/20/2024 4:21 AM EST INDICATION: hematemesis, hypoxia, rule out PE CT angiography chest with contrast. 3D Postprocessing. Comparison: None Findings: The main pulmonary artery is top-normal at 3.0 cm. I do not see evidence for subsegmental or larger pulmonary artery embolus. No acute findings in the thoracic aorta or heart. No enlarged mediastinal lymph nodes. Mild dependent atelectasis. There is a 5.5 mm subpleural right lower lobe pulmonary nodule on series 3, image 25/53. No acute bony findings. Procedure Note Edward Jones - 09/20/2024 INDICATION: hematemesis, hypoxia, rule out PE CT angiography chest with contrast. 3D Postprocessing. Comparison: None Findings: The main pulmonary artery is top-normal at 3.0 cm. I do not see evidence for subsegmental or larger pulmonary artery embolus. No acute findingsin the thoracic aorta or heart. No enlarged mediastinal lymph nodes. Mild dependent atelectasis. There is a 5.5 mm subpleural right lowerlobe pulmonary nodule on series 3, image 25/53. No acute bony findings. IMPRESSION: 1. No pulmonary embolus. 2. A 5.5 mm right lower lobe pulmonary nodule, indeterminate. Follow-up chest CT recommended in 3-6 months to assess stability. 3. CT of the abdomen/pelvis dictated separately. This document has been electronically signed by: Edward Jones MD on 09/20/2024 04:21:03 Cathi VALLADARES [facility] CT PROCEDURES Final Result * CT Abdomen Pelvis w Contrast (09/20/2024 3:21 AM EST) Anatomical Region Laterality Modality Body Computed Tomogra phy 09/20/2024 4:24 AM EST Impressions 09/20/2024 4:24 AM EST 1. No acute findings. 2. Small nonobstructing right nephrolith. 3. See findings section of the report for additional details. This document has been electronically signed by: Edward Jones MD on 09/20/2024 04:24:28 Narrative 09/20/2024 4:24 AM EST INDICATION: hematemesis CT abdomen and pelvis with contrast Comparison: CT - CT ABD PEL W CONTRAST - 08/30/24 02:55 EST Findings: No acute findings in the liver, gallbladder, spleen, pancreas or adrenal glands. No hydronephrosis. A 9 mm right renal hypodensity, most likely a cyst but too small to definitively characterize. There is a 5 mm nonobstructing right nephrolith. Nonspecific mild prostatomegaly at 4.3 cm. No dilated bowel. The appendix is nondilated. No free fluid in the pelvis. Tiny supraumbilical fat containing ventral hernia. Small to moderate size fat containing right inguinal hernia. No acute bony findings. Procedure Note Edward Jones - 09/20/2024 INDICATION: hematemesis CT abdomen and pelvis with contrast Comparison: CT - CT ABD PEL W CONTRAST - 08/30/24 02:55 EST Findings: No acute findings in the liver, gallbladder, spleen, pancreas or adrenal glands. No hydronephrosis. A 9 mm right renal hypodensity, most likely a cystbut too small to definitively characterize. There is a 5 mm nonobstructing right nephrolith. Nonspecific mild prostatomegaly at 4.3 cm. No dilated bowel. The appendix is nondilated. No free fluid in thepelvis. Tiny supraumbilical fat containing ventral hernia. Small to moderatesize fat containing right inguinal hernia. No acute bony findings. IMPRESSION: 1. No acute findings. 2. Small nonobstructing right nephrolith. 3. See findings section of the report for additional details. This document has been electronically signed by: Edward Jones MD on 09/20/2024 04:24:[address] PROCEDURES Final Result * XR Neck Soft Tissue (09/20/2024 1:43 AM EST) Anatomical Region Laterality Modality Head and Neck Radiographic Kendra ging 09/20/2024 9:39 AM EST Impressions 09/20/2024 9:41 AM EST Normal examination of the soft tissues of the neck. -------- FINAL REPORT -------- Dictated By: Gurjit Hills Dictated Date: 09/20/2024 09:39 ET Assigned Physician: Gurjit Hills Reviewed and Electronically Signed By: Gurjit Hills Signed Date: 09/20/2024 09:41 ET Workstation ID: [id number] Transcribed By: Self Edit Transcribed Date: 09/20/2024 09:39 ET Narrative 09/20/2024 9:41 AM EST HISTORY: The patient is a 38-year-old male with hematemesis. FINDINGS: AP and lateral radiographs of the neck, using soft tissue technique, demonstrate no prevertebral soft tissue swelling. The epiglottis and aryepiglottic folds are of normal appearance. No soft tissue mass is seen. The included portion of the airway is widely patent. There are mild degenerative change of the cervical spine. Procedure Note Gurjit Hills MD - 09/20/2024 HISTORY: The patient is a 38-year-old male with hematemesis. FINDINGS: AP and lateral radiographs of the neck, using soft tissuetechnique, demonstrate no prevertebral soft tissue swelling. Theepiglottis and aryepiglottic folds are of normal appearance. No softtissue mass is seen. The included portion of the airway is widely patent.There are mild degenerative change of the cervical spine. IMPRESSION: Normal examination of the soft tissues of the neck. -------- FINAL REPORT -------- Dictated By: Gurjit Hills Dictated Date: 09/20/2024 09:39 ET Assigned Physician: Gurjit Hills Reviewed and Electronically Signed By: Gurjit Hills Signed Date: 09/20/2024 09:41 ET Workstation ID: [id number] Transcribed By: Self Edit Transcribed Date: 09/20/2024 09:39 ET us Cathi Singh PA IMG XR PROCEDURES Final Result * XR Chest 2 Views (09/20/2024 1:43 AM EST) Anatomical Region Laterality Modality Body Radiographic Kendra ging 09/20/2024 10:2 0 AM EST Impressions 09/20/2024 10:22 AM EST Somewhat limited depth of inspiration. No acute pulmonary disease. Code 12381 -------- FINAL REPORT -------- Dictated By: Gurjit Hills Dictated Date: 09/20/2024 10:20 ET Assigned Physician: Gurjit Hills Reviewed and Electronically Signed By: Gurjit Hills Signed Date: 09/20/2024 10:22 ET Workstation ID: [id number] Transcribed By: Self Edit Transcribed Date: 09/20/2024 10:20 ET Narrative 09/20/2024 10:22 AM EST HISTORY: The patient is a 38-year-old male with hematemesis. FINDINGS: PA and lateral radiographs of the chest demonstrate somewhat limited depth of inspiration. The bony structures are of normal appearance. The cardiac and mediastinal contours are within normal limits. The lungs and costophrenic angles are clear. Procedure Note Gurjit Hills MD - 09/20/2024 HISTORY: The patient is a 38-year-old male with hematemesis. FINDINGS: PA and lateral radiographs of the chest demonstrate somewhatlimited depth of inspiration. The bony structures are of normalappearance. The cardiac and mediastinal contours are within normal limits.The lungs and costophrenic angles are clear. IMPRESSION: Somewhat limited depth of inspiration. No acute pulmonary disease. Code 67671 -------- FINAL REPORT -------- Dictated By: Gurjit Hills Dictated Date: 09/20/2024 10:20 ET Assigned Physician: Gurjit Hills Reviewed and Electronically Signed By: Gurjit Hills Signed Date: 09/20/2024 10:22 ET Workstation ID: [id number] Transcribed By: Self Edit Transcribed Date: 09/20/2024 10:20 ET us Cathi VALLADARES IMG XR PROCEDURES Final Result * ECG-Outside (09/20/2024) us Provider Onbase MD ECG ORDERABLES Final Result * (ABNORMAL) CBC auto differential (09/19/2024 8:43 PM EST) [facility] WBC 9.3 4.8 - 10.8 K/mcL LAB HEMETOLOGY METHOD 09/19/2024 8:57 PM [facility] RBC 4.90 4.50 - 5.50 M/mcL LAB HEMETOLOGY METHOD 09/19/2024 8:57 PM [facility] Hemoglobin 14.2 13.5 - 17.5 g/dL LAB HEMETOLOGY METHOD 09/19/2024 8:57 PM [facility] Hematocrit 42.6 42.0 - 54.0 % LAB HEMETOLOGY METHOD 09/19/2024 8:57 PM [facility] MCV 86.2 79.0 - 98.0 FL LAB HEMETOLOGY METHOD 09/19/2024 8:57 PM [facility] MCH 28.7 27.0 - 32.0 pcg LAB HEMETOLOGY METHOD 09/19/2024 8:57 PM [facility] MCHC 33.3 32.0 - 37.0 g/dL LAB HEMETOLOGY METHOD 09/19/2024 8:57 PM [facility] RDW 13.2 11.0 - 15.0 % LAB HEMETOLOGY METHOD 09/19/2024 8:57 PM [facility] Platelets 342 130 - 400 K/mcL LAB HEMETOLOGY METHOD 09/19/2024 8:57 PM [facility] MPV 9.6 7.0 - 11.0 FL LAB HEMETOLOGY METHOD 09/19/2024 8:57 PM [facility] NRBC 0.0 <1.0 % LAB HEMETOLOGY METHOD 09/19/2024 8:57 PM [facility] NRBC Absolute 0.00 <0.10 K/mcL LAB HEMETOLOGY METHOD 09/19/2024 8:57 PM [facility] Neutrophils Relative 54.9 % LAB HEMETOLOGY METHOD 09/19/2024 8:57 PM [facility] Lymphocytes Relative 33.7 % LAB HEMETOLOGY METHOD 09/19/2024 8:57 PM [facility] Monocytes Relative 8.0 % LAB HEMETOLOGY METHOD 09/19/2024 8:57 PM [facility] Eosinophils Relative 2.1 % LAB HEMETOLOGY METHOD 09/19/2024 8:57 PM [facility] Basophils Relative 0.9 % LAB HEMETOLOGY METHOD 09/19/2024 8:57 PM [facility] Immature Granulocytes Relative 0.4 % LAB HEMETOLOGY METHOD 09/19/2024 8:57 PM [facility] Neutrophils Absolute 5.08 1.50 - 7.00 K/mcL LAB HEMETOLOGY METHOD 09/19/2024 8:57 PM [facility] Lymphocytes Absolute 3.12 1.00 - 5.00 K/mcL LAB HEMETOLOGY METHOD 09/19/2024 8:57 PM [facility] Monocytes Absolute 0.74 0.20 - 1.00 K/mcL LAB HEMETOLOGY METHOD 09/19/2024 8:57 PM [facility] Eosinophils Absolute 0.19 0.00 - 0.50 K/mcL LAB HEMETOLOGY METHOD 09/19/2024 8:57 PM EST [facility] Basophils Absolute 0.08 0.00 - 0.20 K/[facility] LAB HEMETOLOGY METHOD 09/19/2024 8:57 PM EST [facility] Immature Granulocytes Absolute 0.04(H) 0.00 - 0.03 K/[facility] LAB HEMETOLOGY METHOD 09/19/2024 8:57 PM EST [facility] Blood Venous blood specimen / Unknown Venipuncture / Unknown 09/19/2024 8:43 PM EST 09/19/2024 8:48 PM EST Jose Rivas MD LAB BLOOD ORDERABLES [place] l Result Performing Organization Address [facility]/ZIP Co de Phone Number [facility] [address] [place] [address], [place] [phone] * Type and screen (09/19/2024 8:43 PM EST) ABO Group A 09/19/2024 9:31 PM EST [facility] Rh Type Negative 09/19/2024 9:31 PM EST [facility] Antibody Screen Negative 09/19/2024 9:31 PM EST [facility] Blood Venous blood specimen / Unknown Venipuncture / Unknown 09/19/2024 8:43 PM EST 09/19/2024 8:49 PM EST Jose Rivas MD LAB BLOOD BANK TEST ORDER SHEELA Final Result Performing Organization Address [facility]/ZIP Co de Phone Number [facility] [address] [place] [address], [place] [phone] * (ABNORMAL) Comprehensive metabolic panel (09/19/2024 8:43 PM EST) Sodium 140 133 - 145 mmol/L LAB CHEMISTRY METHOD 09/19/2024 9:31 PM [facility] Potassium 3.8 3.5 - 5.5 mmol/L LAB CHEMISTRY METHOD 09/19/2024 9:31 PM [facility] Comment:Hemolysis present Chloride 111(H) 96 - 110 mmol/L LAB CHEMISTRY METHOD 09/19/2024 9:31 PM [facility] CO2 21 21 - 32 mmol/L LAB CHEMISTRY METHOD 09/19/2024 9:31 PM [facility] Anion Gap 8 3 - 11 LAB CHEMISTRY METHOD 09/19/2024 9:31 PM [facility] Glucose 121(H) 70 - 100 mg/dL LAB CHEMISTRY METHOD 09/19/2024 9:31 PM [facility] BUN 29(H) 5 - 25 mg/dL LAB CHEMISTRY METHOD 09/19/2024 9:31 PM [facility] Creatinine 1.10 0.70 - 1.30 mg/dL LAB CHEMISTRY METHOD 09/19/2024 9:31 PM [facility] eGFR 89 >=60 mL/min/1. 73m2 LAB CHEMISTRY METHOD 09/19/2024 9:31 PM [facility] Comment:Calculation based on the??Chronic Kidney Disease Epidemiology Collaboration (CKD-EPI) equation refit??without adjustment for race. BUN/Creatinine Ratio 26.4 LAB CHEMISTRY METHOD 09/19/2024 9:31 PM [facility] Calcium 8.8 8.5 - 10.5 mg/dL LAB CHEMISTRY METHOD 09/19/2024 9:31 PM [facility] AST (SGOT) 71(H) 10 - 42 unit/L LAB CHEMISTRY METHOD 09/19/2024 9:31 PM [facility] ALT (SGPT) 93(H) 10 - 60 unit/L LAB CHEMISTRY METHOD 09/19/2024 9:31 PM [facility] Alkaline Phosphatase 163(H) 42 - 121 unit/L LAB CHEMISTRY METHOD 09/19/2024 9:31 PM EST [facility] Total Protein 7.5 6.0 - 8.0 g/dL LAB CHEMISTRY METHOD 09/19/2024 9:31 PM EST [facility] Albumin 3.9 3.2 - 5.0 g/dL LAB CHEMISTRY METHOD 09/19/2024 9:31 PM EST [facility] Total Bilirubin 0.3 0.0 - 1.4 mg/dL LAB CHEMISTRY METHOD 09/19/2024 9:31 PM EST [facility] Blood Venous blood specimen / Unknown Venipuncture / Unknown 09/19/2024 8:43 PM EST 09/19/2024 8:48 PM EST us Jose Rivas MD LAB BLOOD ORDERABLES [place] Result [facility] [address] [place] [address], documented in this encounter Visit Diagnoses Diagnosis Hematemesis, unspecified whether nausea present- Primary Hypoxia Hypoxemia documented in this encounter Administered Medications Inactive Administered Medications - up to 3 most recent administrations Medication Order MAR Action Action Date Dose Rate Site iopamidoL (ISOVUE-370) 370 mg iodine /mL (76 %) injection 85 mL 85 mL, intravenous, Once in imaging, Starting on Fri09/20/24 at 0308, For 1 dose Given 09/20/2024 3:10 AM EST 85 mL sodium chloride 0.9 % flush 10 mL 10 mL, intravenous, Once, On Fri09/20/24 at 0309, For 1 dose Given 09/20/2024 3:10 AM EST 10 mL documented in this encounter Active and Recently Administered Medications Times are shown in EST. Scheduled Medication Order 09/18/2024 09/19/2024 09/20/2024 iopamidoL (ISOVUE-370) 370 mg iodine /mL (76 %) injection 85 mL (COMPLETED) 85 mL, intravenous, Once in imaging, Starting on Fri09/20/24 at 0308, For 1 dose 0310 (Given - Provid er: Sarah Vooris) sodium chloride 0.9 % flush 10 mL (COMPLETED) 10 mL, intravenous, Once, On Fri09/20/24 at 0309, For 1 dose 0310 (Given - Provid er: Sarah Bethea) documented in this encounter Care Teams Unified Communications Engineer Relationship Specialty Start Date End Date Belinda Will DO [address] [phone] PCP - General Internal Medicine 01/28/22 documented as of this encounter
--- OUTSIDE RECORDS SUMMARY | 2024-10-01 13:40 | XMS_ITS | Clinical Summary ---
Author Organization LL [address] [facility] Address [address] [place] [address] Phone Care Team Providers Care Software Tester Name Role Phone CharissaShasha Shepardla Primary Care Pro vider Allergies Active Allergy Reactions Criticality Noted Date Comments Amoxicillin Other,Unknown Low 07/02/2021 Heparin Other,Hives 07/02/2021 Lamotrigine Rash Low 07/08/2022 Levetiracetam Hives,Other Low 07/02/2021 Other Reaction(s): Lamotrigine Medications ibuprofen (ADVIL,MOTRIN) 600 mg tablet Take 1 tablet (600 mg total) by mouth every 8 (eight) hours if needed for mild pain or moderate pain. 30 tablet 5 Active tamsulosin (FLOMAX) 0.4 mg 24 hr capsule Take 1 capsule (0.4 mg total) by mouth 1 (one) time each day for 7 days. Capsules should be taken 30 minutes following the same meal each day. 7 capsule 5 09/06/19 25 traMADoL (ULTRAM) 50 mg tablet Take 1 tablet (50 mg total) by mouth every 6 (six) hours if needed for severe pain for up to 3 days. Max Daily Amount: 200 mg 12 tablet 5 09/02/19 25 Encounters Date Type Department Care Team Description 09/19/2024 8:24 PM EST - 09/20/2024 5:40 AM EST Emergency [facility] Emergency [address] [place] [address] Hematemesis, unspecified whether nausea present (Primary Dx); Hypoxia Discharge Disposition: Home or Self Care 08/30/2024 12:32 AM EST - 08/30/2024 5:48 AM EST Emergency [facility] Emergency [address] [place] [address] Kidney stone on left side (Primary Dx) Discharge Disposition: Home or Self Care 08/24/2024 Lab Requisition [facility] - Main Lab [address] [facility] [place] [address] Claribel Moreno NP Post-traumatic stress disorder, unspecified; Autistic disorder from Last 3 Months Social History Tobacco Use Types Packs/Day Years Used Date Smoking Tobacco: Never Assessed Sex and Gender Information Value Date Recorded Sex Assigned at Male 09/19/2024 10:38 PM EST Legal Sex Male 1:52 AM EST Gender Identity Male 09/19/2024 10:38 PM EST Sexual Orientation Straight 09/19/2024 10 :38 PM EST Last Filed Vital Signs Vital Sign Reading [...] Mass Index 33.66 09/19/2024 8:28 PM EST Plan of Treatment Health Maintenance Due Date Last Done Comments DTaP,Tdap,and Td Vaccines (1 - Tdap) 2005 Hepatitis A Vaccines (1 of 2 - Risk 2-dose series) 2005 Hepatitis B Vaccines (1 of 3 - 19+ 3-dose series) 2005 Pneumococcal Vaccine: Pediat rics (0 to 5 Years) and At-Risk Patients (6 to 64 Years) (1 of 2 - PCV) 2005 Cholesterol Screening (Lipid Panel) 07/07/2022 Depression Screening 07/07/2022 HIV Screening 07/07/2022 Hepatitis C Screening 07/07/2022 Social Influencers of Health Screening 07/07/2022 COVID-19 Vaccine (2 2023-2 5 season) 2024 08/21/2021 Influenza Vaccine Completed 06/01/2024 HIB Vaccines Aged Out No longer eligi ble based on patient's age to complete this topic HPV Vaccines Aged Out No longer eligi ble based on patient's age to complete this topic IPV Vaccines Aged Out No longer eligi ble based on patient's age to complete this topic MMR Vaccines Aged Out No longer eligi ble based on patient's age to complete this topic Meningococcal ACWY Vaccine Aged Out N o longer eligible based on patient's age to complete this topic Meningococcal B Vacine Aged Out No lo nger eligible based on patient's age to complete this topic RSV Immunization Patients Un stewart 20 months Aged Out No longer eligible b ased on patient's age to complete this topic Varicella Vaccines Aged Out No longer eligible based on patient's age to complete this topic Procedures Procedure Name Priority Date/Time Associated Diagnosis Comments CT ANGIO CHEST WO AND/OR W CONTRAST STAT 09/20/2024 3:[address] ABDOMEN PELVIS W CONTRAST STAT 09/20/2024 3:21 AM EST XR NECK SOFT TISSUE STAT 09/20/2024 1 :43 AM EST XR CHEST 2 VIEWS STAT 09/20/2024 1:43 AM EST ECG OUTSIDE 09/20/2024 CBC WITH AUTO DIFFERENTIAL STAT 09/19/2024 8:43 PM EST TYPE AND SCREEN STAT 09/19/2024 8:43 PM EST COMPREHENSIVE METABOLIC PANEL STAT 09/19/2024 8:43 PM EST CBC AND DIFFERENTIAL STAT 09/19/2024 8:[address] ABDOMEN PELVIS W CONTRAST STAT 08/30/2024 2:55 AM EST [facility]AN URINE CULTURE TUBE STAT 08/30/2024 1:01 AM EST URINALYSIS WITH REFLEX MICROSCOPIC AND CULTURE STAT 08/30/2024 1:01 AM EST URINALYSIS WITH REFLEX MICROSCOPIC AND CULTURE STAT 08/30/2024 1:01 AM EST CBC WITH AUTO DIFFERENTIAL STAT 08/30/2024 12:47 AM EST COMPREHENSIVE METABOLIC PANEL STAT 08/30/2024 12:47 AM EST CBC AND DIFFERENTIAL STAT 08/30/2024 12:47 AM EST LAVENDER - EDTA Routine 08/24/2024 3:30 PM [...] EST Post-traumatic stress disorder, unspecified Autistic disorder from Last 3 Months Results * CT Abdomen Pelvis w Contrast (09/20/2024 3:21 AM EST) Only the most recent of2 resultswithin the time period is included. Anatomical Region Laterality Modality Body Computed Tomogra [...] Edward Jones MD on 09/20/2024 04:24:28 Cathi KAPLAN [facility] [place] PROCEDURES Final Result * CT Angio Chest wo and/or w [...] Edward Jones MD on 09/20/2024 04:21:[address] PROCEDURES Final Result * XR [...] Signed Date: 09/20/2024 09:41 ET Workstation ID: [id number] Transcribed By: Self Edit Transcribed Date: 09/20/2024 [...] -------- FINAL REPORT -------- Dictated By: Gurjit Hilsl Dictated Date: 09/20/2024 09:39 ET Assigned Physician: Gurjit Hills Reviewed and Electronically Signed By: Gurjit Hills Signed Date: 09/20/2024 09:41 ET Workstation ID: [id number] Transcribed By: Self Edit Transcribed Date: 09/20/2024 09:39 ET us Cathi KAPLAN IMG XR PROCEDURES Final Result * XR Chest 2 Views (09/20/2024 1:43 AM EST) Anatomical Region Laterality Modality Body Radiographic Kendra ging 09/20/2024 10:2 0 AM EST Impressions 09/20/2024 10:22 AM EST Somewhat limited depth of inspiration. No acute pulmonary disease. Code 24871 -------- FINAL REPORT -------- Dictated By: Gurjit Hills Dictated Date: 09/20/2024 10:20 ET Assigned Physician: Gurjit Hills Reviewed and Electronically Signed By: Gurjit Hills Signed Date: 09/20/2024 10:22 ET Workstation ID: [id number] Transcribed By: Self Edit Transcribed Date: 09/20/2024 [...] of inspiration. No acute pulmonary disease. Code 27220 -------- FINAL REPORT -------- Dictated By: Gurjit Hills Dictated Date: 09/20/2024 10:20 ET Assigned Physician: Gurjit Hills Reviewed and Electronically Signed By: Gurjit Hills Signed Date: 09/20/2024 10:22 ET Workstation ID: [id number] Transcribed By: Self Edit Transcribed Date: 09/20/2024 10:20 ET us Cathi KAPLAN IMG XR PROCEDURES Final Result * ECG-Outside (09/20/2024) us Provider Onbase ECG ORDERABLES Final Result * (ABNORMAL) CBC auto differential (09/19/2024 8:43 PM EST) Only the most recent of2 resultswithin the time period is included. [facility] Signature WBC 9.3 4.8 - 10.8 K/mcL LAB HEMETOLOGY METHOD 09/19/2024 8:57 PM [facility] RBC 4.90 4.50 - 5.50 M/mcL LAB HEMETOLOGY METHOD 09/19/2024 8:57 PM [facility] Hemoglobin 14.2 13.5 - 17.5 g/dL LAB HEMETOLOGY METHOD 09/19/2024 8:57 PM [facility] Hematocrit 42.6 42.0 - 54.0 % LAB HEMETOLOGY METHOD 09/19/2024 8:57 PM [facility] MCV 86.2 79.0 - 98.0 FL LAB HEMETOLOGY METHOD 09/19/2024 8:57 PM [facility] MCH 28.7 27.0 - 32.0 pcg LAB HEMETOLOGY METHOD 09/19/2024 8:57 PM [facility] LAB MCHC 33.3 32.0 - 37.0 g/dL LAB HEMETOLOGY METHOD 09/19/2024 8:57 PM [facility] RDW 13.2 11.0 - 15.0 % LAB HEMETOLOGY METHOD 09/19/2024 8:57 PM [facility] Platelets 342 130 - 400 K/mcL LAB HEMETOLOGY METHOD 09/19/2024 8:57 PM [facility] MPV 9.6 7.0 - 11.0 FL LAB HEMETOLOGY METHOD 09/19/2024 8:57 PM [facility] NRBC 0.0 <1.0 % LAB HEMETOLOGY METHOD 09/19/2024 8:57 PM [facility] NRBC Absolute 0.00 <0.10 K/mcL LAB HEMETOLOGY METHOD 09/19/2024 8:57 PM [facility] Neutrophils Relative 54.9 % LAB HEMETOLOGY METHOD 09/19/2024 8:57 PM [facility] Lymphocytes Relative 33.7 % LAB HEMETOLOGY METHOD 09/19/2024 8:57 PM [facility] Monocytes Relative 8.0 % LAB HEMETOLOGY METHOD 09/19/2024 8:57 PM [facility] Eosinophils Relative 2.1 % LAB HEMETOLOGY METHOD 09/19/2024 8:57 PM [facility] Basophils Relative 0.9 % LAB HEMETOLOGY METHOD 09/19/2024 8:57 PM [facility] Immature Granulocytes Relative 0.4 % LAB HEMETOLOGY METHOD 09/19/2024 8:57 PM [facility] Neutrophils Absolute 5.08 1.50 - 7.00 K/mcL LAB HEMETOLOGY METHOD 09/19/2024 8:57 PM [facility] Lymphocytes Absolute 3.12 1.00 - 5.00 K/mcL LAB HEMETOLOGY METHOD 09/19/2024 8:57 PM [facility] Monocytes Absolute 0.74 0.20 - 1.00 K/mcL LAB HEMETOLOGY METHOD 09/19/2024 8:57 PM [facility] Eosinophils Absolute 0.19 0.00 - 0.50 K/mcL LAB HEMETOLOGY METHOD 09/19/2024 8:57 PM [facility] Basophils Absolute 0.08 0.00 - 0.20 K/mcL LAB HEMETOLOGY METHOD 09/19/2024 8:57 PM [facility] Immature Granulocytes Absolute 0.04(H) 0.00 - 0.03 K/mcL LAB HEMETOLOGY METHOD 09/19/2024 8:57 PM [facility] Blood Venous blood specimen / Unknown Venipuncture / Unknown 09/19/2024 8:43 PM EST 09/19/2024 8:48 PM EST Jose Rivas MD LAB BLOOD ORDERABLES Tierra l Result Performing Organization Address City/[facility]/ZIP Co de Phone Number [facility] [address] [place] [address], [place] [phone] * Type and screen (09/19/2024 8:43 PM EST) [facility] ABO Group A 09/19/2024 9:31 PM EST [facility] Rh Type Negative 09/19/2024 9:31 PM EST [facility] Antibody Screen Negative 09/19/2024 9:31 PM EST [facility] Blood Venous blood specimen / Unknown Venipuncture / Unknown 09/19/2024 8:43 PM EST 09/19/2024 8:49 PM EST Jose Rivas MD LAB BLOOD BANK TEST ORDER SHEELA Final Result Performing Organization Address [facility]/ZIP Co de Phone Number [facility] [address] [place] [address], [place] [phone] * (ABNORMAL) Comprehensive metabolic panel (09/19/2024 8:43 PM EST) Only the most recent of3 resultswithin the time period is included. [facility] Sodium 140 133 - 145 mmol/L LAB CHEMISTRY METHOD 09/19/2024 9:31 PM EST [facility] Potassium 3.8 3.5 - 5.5 mmol/L LAB CHEMISTRY METHOD 09/19/2024 9:31 PM EST [facility] Comment:Hemolysis present Chloride 111(H) 96 - 110 mmol/L LAB CHEMISTRY METHOD 09/19/2024 9:31 PM EST [facility] CO2 21 21 - 32 mmol/L LAB CHEMISTRY METHOD 09/19/2024 9:31 PM [facility] Anion Gap 8 3 - 11 LAB CHEMISTRY METHOD 09/19/2024 9:31 PM [facility] Glucose 121(H) 70 - 100 mg/dL LAB CHEMISTRY METHOD 09/19/2024 9:31 PM [facility] BUN 29(H) 5 - 25 mg/dL LAB CHEMISTRY METHOD 09/19/2024 9:31 PM [facility] Creatinine 1.10 0.70 - 1.30 mg/dL LAB CHEMISTRY METHOD 09/19/2024 9:31 PM [facility] eGFR 89 >=60 mL/min/1. 73m2 LAB CHEMISTRY METHOD 09/19/2024 9:31 PM [facility] Comment:Calculation based on the??Chronic Kidney Disease Epidemiology Collaboration (CKD-EPI) equation refit??without adjustment for race. BUN/Creatinine Ratio 26.4 LAB CHEMISTRY METHOD 09/19/2024 9:31 PM [facility] Calcium 8.8 8.5 - 10.5 mg/dL LAB CHEMISTRY METHOD 09/19/2024 9:31 PM [facility] AST (SGOT) 71(H) 10 - 42 unit/L LAB CHEMISTRY METHOD 09/19/2024 9:31 PM [facility] ALT (SGPT) 93(H) 10 - 60 unit/L LAB CHEMISTRY METHOD 09/19/2024 9:31 PM [facility] Alkaline Phosphatase 163(H) 42 - 121 unit/L LAB CHEMISTRY METHOD 09/19/2024 9:31 PM [facility] Total Protein 7.5 6.0 - 8.0 g/dL LAB CHEMISTRY METHOD 09/19/2024 9:31 PM [facility] Albumin 3.9 3.2 - 5.0 g/dL LAB CHEMISTRY METHOD 09/19/2024 9:31 PM [facility] Total Bilirubin 0.3 0.0 - 1.4 mg/dL LAB CHEMISTRY METHOD 09/19/2024 9:31 PM [facility] Blood Venous blood specimen / Unknown Venipuncture / Unknown 09/19/2024 8:43 PM EST 09/19/2024 8:48 PM EST us Jose Rivas MD LAB BLOOD ORDERABLES Tierra l Result [facility] [address] [place] [address], [place] [phone] * (ABNORMAL) Urinalysis with reflex microscopic and culture (08/30/2024 1:01 AM EST) Specific [facility] Urine 1.022 1.003 - 1.030 LAB URINALYSIS - AUTOMATED METHOD 08/30/2024 2:02 AM [facility] pH, Urine 7.0 5.0 - 8.0 pH LAB URINALYSIS - AUTOMATED METHOD 08/30/2024 2:02 AM [facility] Leukocytes, Urine Negative Negative LAB URINALYSIS - AUTOMATED METHOD 08/30/2024 2:02 AM [facility] Nitrite, Urine Negative Negative LAB URINALYSIS - AUTOMATED METHOD 08/30/2024 2:02 AM [facility] Protein, Urine Trace <=Trace mg/dL LAB URINALYSIS - AUTOMATED METHOD 08/30/2024 2:02 AM [facility] Glucose, Urine Negative Negative mg/dL LAB URINALYSIS - AUTOMATED METHOD 08/30/2024 2:02 AM [facility] Ketones, Urine Negative Negative mg/dL LAB URINALYSIS - AUTOMATED METHOD 08/30/2024 2:02 AM [facility] Urobilinogen, Urine 1.0 0.2 - 1.0 mg/dL LAB URINALYSIS - AUTOMATED METHOD 08/30/2024 2:02 AM [facility] Bilirubin, Urine Negative Negative LAB URINALYSIS - AUTOMATED METHOD 08/30/2024 2:02 AM [facility] Blood, Urine Trace(A) Negative LAB URINALYSIS - AUTOMATED METHOD 08/30/2024 2:02 AM [facility] RBC, Urine 10.8(H) 0 - 4 /HPF LAB URINALYSIS - AUTOMATED METHOD 08/30/2024 2:02 AM [facility] WBC, Urine 1.3 0 - 4 /HPF LAB URINALYSIS - AUTOMATED METHOD 08/30/2024 2:02 AM [facility] Squamous Epithelial, Urine 13 0 - 60 /LPF LAB URINALYSIS - AUTOMATED METHOD 08/30/2024 2:02 AM [facility] Bacteria, Urine Negative Negative /HPF LAB URINALYSIS - AUTOMATED METHOD 08/30/2024 2:02 AM [facility] Hyaline Casts, Urine 1.2 0 - 3 /LPF LAB URINALYSIS - AUTOMATED METHOD 08/30/2024 2:02 AM [facility] Urine Urine specimen obtained by clean catch procedure / Unknown Non-blood Collection / Unknown 08/30/2024 1:01 AM EST 08/30/2024 1:38 AM EST Jordan KAPLAN LAB URINE ORDERABLES Final Resul t [facility] [address] [place] [address], * Callahan urine culture tube (08/30/2024 1:01 AM EST) Extra Tube Hold for add-ons. 08/30/2024 3:08 AM [facility] Comment:Auto resulted. Urine Urine specimen obtained by clean catch procedure / Unknown Non-blood Collection / Unknown 08/30/2024 1:01 AM EST 08/30/2024 1:38 AM EST us Jordan Holcomb PA LAB URINE ORDERABLES Final Resul t Performing Organization Address [facility]/ZIP Co de Phone Number [facility] [address] [place] [address], [place] [phone] * Lavender tube (08/24/2024 3:30 PM EST) Extra Tube Hold for add-ons. 08/24/2024 9:01 PM EST [facility] Comment:Auto resulted. Blood Venous blood specimen / Unknown 08/24/2024 3:30 PM EST 08/24/2024 7:15 PM EST us Claribel Moreno NATIONAL ACCOUNT REPRESENTATIVE LAB BLOOD ORDERABLES Final Result Performing Organization Address [facility] Co de Phone Number [facility] [address] [place] [address], [place] [phone] * Drug abuse screen, serum (08/24/2024 3:30 [...] developed and the performance characteristics determined by [facility]. This confirmation testing has not been cleared or approved by the FDA. The laboratory is regulated under CLIA as qualified to perform high-complexity testing. This test is used for patient testing purposes. It should not be regarded as investigational or for research. Test performed at [facility], [address] , [place], [place] ??[address] ? [phone] Caridad Schumacher MD, PhD - Bacon Stringer Blood Venous blood specimen / Unknown 08/24/2024 3:30 PM EST 08/24/2024 7:15 PM EST [facility] BLOOD ORDERABLES Final Result Performing Organization Address City/[facility]/ZIP Co de Phone Number [facility] [address] [place] [address] * Bilirubin, direct (08/24/2024 3:30 PM EST) Bilirubin, Direct <0.1 0.0 - 0.3 mg/dL LAB CHEMISTRY METHOD 08/24/2024 7:58 PM EST [facility] Blood Venous blood specimen / Unknown 08/24/2024 3:30 PM EST 08/24/2024 7:15 PM EST [facility] LAB BLOOD ORDERABLES Final Result [facility] [address] [place] [address], * (ABNORMAL) [place] level (08/24/2024 3:30 PM EST) [place] Level <0.2(L) 0.6 - 1.2 mEq/L LAB CHEMISTRY METHOD 08/24/2024 8:14 PM EST [facility] Comment:Results verified by repeat testing Blood Venous blood specimen / Unknown 08/24/2024 3:30 PM EST 08/24/2024 7:15 PM EST us Claribel Moreno NATIONAL ACCOUNT REPRESENTATIVE LAB BLOOD ORDERABLES Final Result [facility] ([facility] H[facility] LAB [address] [place] [address], [place] [phone] from Last 3 Months Insurance [facility] [employer] Advance Directives Documents on File Type Date Recorded 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
== END ==
PROVIDERS: PCP Internal Medicine; Visit Provider Nurse Practitioner Family
DX: M54.9 Dorsalgia, unspecified (principal); G40.909 Epilepsy, unspecified, not intractable, without status epilepticus; E87.6 Hypokalemia; G43.009 Migraine without aura, not intractable, without status migrainosus
CPT/HCPCS: 99214

== ENCOUNTER → 2024-10-01 11:26 | Outpatient (BNVA) | payer OTHER, SELFPAY | PROVIDERS: PCP Internal Medicine; Visit Provider Nurse Practitioner Family | DX: M54.9 Dorsalgia, unspecified (principal); G40.909 Epilepsy, unspecified, not intractable, without status epilepticus; E87.6 Hypokalemia; G43.009 Migraine without aura, not intractable, without status migrainosus | CPT/HCPCS: 99212 ==